=== PATIENT | female | born 1965 | race Hispanic/Latino ===

== ENCOUNTER 2018-01-28 23:02 | Emergency (ER) | payer SELFPAY ==
[2018-01-29] MEDS ORDERED: NA CHLORIDE 0.9% 1,000 ML ONE (00:02)
[2018-01-29] MEDS ORDERED: INSULIN -REGULAR HUMAN 50 UNIT/0.5 ML ML ONE ×2 (00:02→01:48)
[2018-01-29 00:05] LABS: Absolute Lymphocytes (CBC) 2.2 K/uL (0.7-4.9); Absolute Monocytes 0.4 K/uL (0.1-1.3); Absolute Neutrophil 2.5 K/uL (1.8-8.0); Basophils % 0.7 % (0-1.3); Eosinophils % 2.5 % (0-4.4); Hematocrit 40.1 % (36.0-45.0); MCH 28.8 pg (27.0-35.0); MCV 86.2 fL (80-100); MPV 8.1 fL (7.6-11.3); Monocytes % 6.7 % (3.3-12.3); RBC Red Blood Cell Count 4.65 M/uL (3.86-4.86)
[2018-01-29 00:28] LABS: ALT/SGPT 29 U/L (12-78); AST/SGOT 26 U/L (15-37); Albumin 3.1 g/dL (3.4-5.0); Alkaline Phosphatase 178 U/L (45-117); BUN Blood Urea Nitrogen 11 mg/dL (7-18); Bicarbonate 29 mmol/L (21-32); Bilirubin Direct < 0.1 mg/dL (0-0.2); Bilirubin Total 0.5 mg/dL (0.2-1.0); CKMB Creatine Kinase MB 1.8 ng/mL (0.3-3.6); Creatine Phosphokinase 117 U/L (26-192); Magnesium 1.7 mg/dL (1.8-2.4); NT PRO-BNP 141 pg/mL (<125); Protein, Total 7.2 g/dL (6.4-8.2); Sodium Level 127 mmol/L (136-145)
[2018-01-29 00:30] LABS: Glucose Level 638 mg/dL (74-106)
[2018-01-29 00:37] LABS: Protime INR 0.84
[2018-01-29] MEDS ORDERED: cloNIDine HCl 0.1 MG TAB ONE ×2 (01:47)
--- NOTE | 2018-01-29 02:12 | EDPHYS ---
Physician Documentation [facility] Name: Jailyn Terry Age: 52 yrs Sex: Female : 1965 Arrival Date: 01/28/2018 Time: 23:04 Bed 25 Private MD: ED Physician Mamadou Laboy HPI: 01/29 01:37 This 52 yrs old Female presents to ER via Ambulatory with complaints of tw4 Dizziness, Swelling of Lower Extremity. 01:37 The patient presents with dizziness. Context: last week, occurred at home. Modifying tw4 factors: The symptoms are alleviated by nothing, the symptoms are aggravated by nothing. Associated signs and symptoms: The patient has no apparent associated signs or symptoms. Severity of symptoms: At their worst the symptoms were moderate in the emergency department the symptoms are unchanged. Patient's baseline: Neuro: alert and fully oriented, Motor: no deficits, Ambulation: walks without assistance, Speech: normal. The patient has not experienced similar symptoms in the past. 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 - Social history:: Smoking status: Patient/guardian denies using tobacco. - Ebola Screening: : No symptoms or risks identified at this time. ROS: 01/29 01:37 Constitutional: Negative for fever, chills, and weight loss, Cardiovascular: Negative tw4 for chest pain, palpitations, and edema, Respiratory: Negative for shortness of breath, cough, wheezing, and pleuritic chest pain, Abdomen/GI: Negative for abdominal pain, nausea, vomiting, diarrhea, and constipation, Back: Negative for injury and pain, MS/Extremity: Negative for injury and deformity. Neuro: Positive for dizziness, Negative for altered mental status, gait disturbance, headache, hearing loss, loss of consciousness, numbness, seizure activity, speech changes, syncope, near syncope. Exam: 01:37 Constitutional: This is a well developed, well nourished patient who is awake, alert, tw4 and in no acute distress. Head/Face: Normocephalic, atraumatic. Chest/axilla: Normal chest wall appearance and motion. Nontender with no deformity. No lesions are appreciated. Cardiovascular: Regular rate and rhythm with a normal S1 and S2. No gallops, murmurs, or rubs. Normal PMI, no JVD. No pulse deficits. Respiratory: Lungs have equal breath sounds bilaterally, clear to auscultation and percussion. No rales, rhonchi or wheezes noted. No increased work of breathing, no retractions or nasal flaring. Abdomen/GI: Soft, non-tender, with normal bowel sounds. No distension or tympany. No guarding or rebound. No evidence of tenderness throughout. Back: No spinal tenderness. No costovertebral tenderness. Full range of motion. MS/ Extremity: Pulses equal, no cyanosis. Neurovascular intact. Full, normal range of motion. Neuro: Awake and alert, GCS 15, oriented to person, place, time, and situation. Cranial nerves II-XII grossly intact. Motor strength 5/5 in all extremities. Sensory grossly intact. Cerebellar exam normal. Normal gait. Vital Signs: 01/28 23:20 BP 216 / 110; Pulse 96; Resp 16 S; Temp 98.5(O); Pulse Ox 98% on R/A; Weight 81.65 kg bb (R); Height 5 ft. 5 in. (165.10 cm) (R); Pain 8/10; 23:55 BP 174 / 90; Pulse 89; Resp 17 S; Pulse Ox 98% on R/A; jd3 01/29 00:33 BP 164 / 85; Pulse 91; Resp 16 S; Pulse Ox 98% on R/A; jd3 01:31 BP 162 / 100; Pulse 93; Resp 16 S; Pulse Ox 99% on R/A; jd3 02:15 BP 135 / 78; Pulse 81; Resp 16 S; Pulse Ox 100% on R/A; jd3 01/28 23:20 Body Mass Index 29.95 (81.65 kg, 165.10 cm) bb MDM: 01/28 23:17 Patient medically screened. tw4 01/29 02:10 Differential diagnosis: generalized weakness, hypovolemia, idiopathic dizziness, tw4 near-syncope, vertigo. Data reviewed: vital signs, nurses notes. 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 Counseling: I had a detailed discussion with the patient and/or guardian regarding: the historical points, exam findings, and any diagnostic results supporting the discharge/admit diagnosis, lab results. Response to treatment: the patient's symptoms have markedly improved after treatment, and as a result, I will discharge patient. Special discussion: I discussed with the patient/guardian in detail that at this point there is no indication for admission to the hospital. It is understood, however, that if the symptoms persist or worsen the patient needs to return immediately for re-evaluation. 01/28 23:41 Order name: Basic Metabolic Panel; Complete Time: 01:01/29 01:05 Interpretation: Normal except: GLUC 638; NA 127; CL 91; GFR 76. 01/28 23:41 Order name: CBC with Diff; Complete Time: 01:01/28 23:41 Order name: Ckmb; Complete Time: 01:05 01/28 23:41 Order name: CPK; Complete Time: 01:05 01/28 23:41 Order name: LFT's; Complete Time: 01:01/29 01:05 Interpretation: Normal except: A/G 0.8; GLOB 4.1; ALB 3.1; ALK 178. 01/28 23:41 Order name: Magnesium; Complete Time: 01:05 01/29 01:32 Interpretation: MG 1.7. 01/28 23:41 Order name: NT PRO-BNP; Complete Time: 01:05 01/28 23:41 Order name: PT-INR; Complete Time: 01:05 01/28 23:41 Order name: Ptt, Activated; Complete Time: 01:05 01/28 23:41 Order name: Troponin (emerg Dept Use Only); Complete Time: 01:05 01/28 23:41 Order name: EKG; Complete Time: 23:42 01/28 23:41 Order name: Cardiac monitoring; Complete Time: 23:49 01/28 23:41 Order name: EKG - Nurse/Tech; Complete Time: 23:56 01/28 23:41 Order name: IV Saline Lock; Complete Time: 23:49 01/28 23:41 Order name: Labs collected and sent; Complete Time: 23:49 tw4 01/28 23:41 Order name: O2 Per Protocol; Complete Time: 23:49 tw4 01/28 23:41 Order name: O2 Sat Monitoring; Complete Time: 23:49 tw4 Administered Medications: 00:11 Not Given (Physician Discretion): cloNIDine 0.2 mg PO once jd3 00:12 Drug: Insulin Regular Human 10 units {Co-Signature: tl3 (Monica Maxwell RN).} Route: IVP; jd3 Site: left antecubital; 02:10 Follow up: Response: No adverse reaction jd3 00:12 Drug: NS 0.9% 1000 ml Route: IV; Rate: 1 bolus; Site: left antecubital; jd3 02:25 Follow up: Response: No adverse reaction; IV Status: Completed infusion; IV Intake: jd3 1000ml 00:12 Drug: cloNIDine 0.1 mg Route: PO; jd3 02:10 Follow up: Response: No adverse reaction jd3 01:52 Drug: cloNIDine 0.1 mg Route: PO; jd3 02:10 Follow up: Response: No adverse reaction; Blood pressure is lowered jd3 01:53 Drug: Insulin Regular Human 5 units {Co-Signature: jd3 (Robert Lauren RN).} Route: ea IVP; Site: left antecubital; 02:16 Follow up: Response: Blood sugar is lowered jd3 Point of Care Testing: Blood Glucose: 01/28 23:21 Blood Glucose: 488 mg/dL; bb 01/29 01:10 Blood Glucose: 312 mg/dL; jd3 02:15 Blood Glucose: 214 mg/dL; jd3 01:10 provider notified. jd3 Ranges: Critical Glucose Levels:Adult <50 mg/dl or >400 mg/dl <40 mg/dl or >180 mg/dl Disposition: 01/29/18 02:11 Discharged to Home. Impression: Hyperglycemia, unspecified, Hypertension secondary to other renal disorders. - Condition is Stable. - Discharge Instructions: Hypertension, Hypertension, [id number]-[id number], Blood Glucose Monitoring, Adult, Hyperglycemia, Util-cp-Spkh, Metformin and IV Contrast Studies. - Prescriptions for Lisinopril 10 mg Oral Tablet - take 1 tablet by ORAL route once daily; 20 tablet. Metformin 500 mg Oral Tablet Sustained Release 24 hr - take 1 tablet by ORAL route once daily with evening meal; 20 tablet. - Medication Reconciliation Form, Thank You Letter, Antibiotic Education, Prescription Opioid Use form. - Follow up: Private Physician; When: As needed; Reason: Recheck today's complaints, Re-evaluation by your physician. - Problem is new. - Symptoms have improved. Signatures: Dispatcher [employer] EDJimena Davenport RN RN bb Cece Roman RN RN ea Davies, Jonathon, RN RN jd3 Mamadou Laboy MD MD tw4 Monica Maxwell RN tl3 Robert Lauren RN jd3 Corrections: (The following items were deleted from the chart) 01:05 01:05 A/G 0.8; GLOB 4.1; ALB 3.1; ALK 178. tw4 tw4 02:25 02:11 01/29/2018 02:11 Discharged to Home. Impression: Hyperglycemia, unspecified; jd3 Hypertension secondary to other renal disorders. Condition is Stable. Forms are Medication Reconciliation Form, Thank You Letter, Antibiotic Education, Prescription Opioid Use. Follow up: Private Physician; When: As needed; Reason: Recheck today's complaints, Re-evaluation by your physician. Problem is new. Symptoms have improved. tw4
--- NOTE | 2018-01-29 02:12 | ER ---
Nurse's Notes [facility] Name: Jailyn Terry Age: 52 yrs Sex: Female : 1965 Arrival Date: 01/28/2018 Time: 23:04 Bed 25 Private MD: Diagnosis: Hyperglycemia, unspecified;Hypertension secondary to other renal disorders Presentation: 01/28 23:18 Presenting complaint: Patient states: she has HTN and DM but ran out of her medication bb a month ago has been having pain in her left leg for several weeks has a big lump on her left foot and has had diarrhea all day today. Denies vomiting, or fever. Transition of care: patient was not received from another setting of care. Onset of symptoms was December 2017. Risk Assessment: Do you want to hurt yourself or someone else? Patient reports no desire to harm self or others. Initial Sepsis Screen: Does the patient meet any 2 criteria? No. Patient's initial sepsis screen is negative. Does the patient have a suspected source of infection? No. Patient's initial sepsis screen is negative. Care prior to arrival: None. 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 - Social history:: Smoking status: Patient/guardian denies using tobacco. - Ebola Screening: : No symptoms or risks identified at this time. Screenin:25 Abuse screen: Denies threats or abuse. Nutritional screening: No deficits noted. jd3 Tuberculosis screening: No symptoms or risk factors identified. Fall Risk IV access (20 points). Ambulatory Aid- None/Bed Rest/Nurse Assist (0 pts). Gait- Weak (10 pts.). Mental Status- Oriented to own ability (0 pts). Total Young Fall Scale indicates Low Risk Score (25-44 pts). Fall prevention measures have been instituted. Side Rails Up X 2 Placed close to Nursing Station Frequent Obs/Assesments occuring Family Present and informed to notify staff if they need to leave bedside. Assessment: 23:30 General: Appears uncomfortable, obese, well groomed, well developed, well nourished, tl3 Behavior is calm, cooperative, appropriate for age. Pain: Complains of pain in abdomen Also complains of nausea, diarrhea. Neuro: Level of Consciousness is awake, alert, obeys commands, Oriented to person, place, time, situation, Appropriate for age. Cardiovascular: Heart tones S1 S2 present Patient's skin is warm and dry. Respiratory: Airway is patent Respiratory effort is even, unlabored, Respiratory pattern is regular, symmetrical. GI: Reports lower abdominal pain, diarrhea. : No signs and/or symptoms were reported regarding the genitourinary system. EENT: No signs and/or symptoms were reported regarding the EENT system. Derm: No signs and/or symptoms reported regarding the dermatologic system. Musculoskeletal: No signs and/or symptoms reported regarding the musculoskeletal system. 23:30 EENT: Reports blurred vision. tl3 23:30 Reassessment: has been out of diabetes and blood pressure medicine for about a month. tl3 23:44 Reassessment: Patient appears in no apparent distress at this time. No changes from jd3 previously documented assessment. Patient and/or family updated on plan of care and expected duration. Pain level reassessed. Patient is alert, oriented x 3, equal unlabored respirations, skin warm/dry/pink. 01/29 00:34 Reassessment: Patient appears in no apparent distress at this time. Patient and/or jd3 family updated on plan of care and expected duration. Pain level reassessed. Patient is alert, oriented x 3, equal unlabored respirations, skin warm/dry/pink. 01:32 Reassessment: Patient appears in no apparent distress at this time. Patient and/or jd3 family updated on plan of care and expected duration. Pain level reassessed. Patient is alert, oriented x 3, equal unlabored respirations, skin warm/dry/pink. 02:24 Reassessment: Patient appears in no apparent distress at this time. Patient and/or jd3 family updated on plan of care and expected duration. Pain level reassessed. Patient is alert, oriented x 3, equal unlabored respirations, skin warm/dry/pink. pt reported understanding of discharge instructions, even and steady gait upon discharge. Vital Signs: 01/28 23:20 BP 216 / 110; Pulse 96; Resp 16 S; Temp 98.5(O); Pulse Ox 98% on R/A; Weight 81.65 kg bb (R); Height 5 ft. 5 in. (165.10 cm) (R); Pain 8/10; 23:55 BP 174 / 90; Pulse 89; Resp 17 S; Pulse Ox 98% on R/A; jd3 01/29 00:33 BP 164 / 85; Pulse 91; Resp 16 S; Pulse Ox 98% on R/A; jd3 01:31 BP 162 / 100; Pulse 93; Resp 16 S; Pulse Ox 99% on R/A; jd3 02:15 BP 135 / 78; Pulse 81; Resp 16 S; Pulse Ox 100% on R/A; jd3 01/28 23:20 Body Mass Index 29.95 (81.65 kg, 165.10 cm) bb ED Course: 01/28 23:04 Patient arrived in ED. am2 23:17 Mamadou Laboy MD is Attending Physician. tw4 23:19 Triage completed. bb 23:20 Arm band placed on Patient placed in an exam room, on a stretcher, on pulse oximetry. bb 23:25 Patient has correct armband on for positive identification. Bed in low position. Call jd3 light in reach. Side rails up X2. Adult w/ patient. 23:26 Inserted saline lock: 22 gauge in left antecubital area, using aseptic technique. Blood jd3 collected. 23:30 Pulse ox on. NIBP on. Warm blanket given. tl3 23:30 No provider procedures requiring assistance completed. tl3 23:44 Robert Lauren, MILTON is Primary Nurse. jd3 01/29 00:30 Notified ED physician of a critical lab result(s). 638 blood glucose. no new orders at j this time. will recheck blood glucose level. 02:24 IV discontinued, intact, bleeding controlled, No redness/swelling at site. Pressure jd3 dressing applied. Administered Medications: 00:11 Not Given (Physician Discretion): cloNIDine 0.2 mg PO once jd3 00:12 Drug: Insulin Regular Human 10 units {Co-Signature: tl3 (Monica Maxwell RN).} Route: IVP; jd3 Site: left antecubital; 02:10 Follow up: Response: No adverse reaction jd3 00:12 Drug: NS 0.9% 1000 ml Route: IV; Rate: 1 bolus; Site: left antecubital; jd3 02:25 Follow up: Response: No adverse reaction; IV Status: Completed infusion; IV Intake: jd3 1000ml 00:12 Drug: cloNIDine 0.1 mg Route: PO; jd3 02:10 Follow up: Response: No adverse reaction jd3 01:52 Drug: cloNIDine 0.1 mg Route: PO; jd3 02:10 Follow up: Response: No adverse reaction; Blood pressure is lowered jd3 01:53 Drug: Insulin Regular Human 5 units {Co-Signature: jd3 (Robert Lauren RN).} Route: ea IVP; Site: left antecubital; 02:16 Follow up: Response: Blood sugar is lowered jd3 Point of Care Testing: Blood Glucose: 01/28 23:21 Blood Glucose: 488 mg/dL; bb 01/29 01:10 Blood Glucose: 312 mg/dL; jd3 02:15 Blood Glucose: 214 mg/dL; jd3 01:10 provider notified. jd3 Ranges: Intake: 02:25 IV: 1000ml; Total: 1000ml. jd3 Outcome: 02:11 Discharge ordered by . tw4 02:24 Discharged to home ambulatory, with family. jd3 02:24 Condition: stable 02:24 Discharge instructions given to patient, family, Instructed on discharge instructions, follow up and referral plans. medication usage, Demonstrated understanding of instructions, follow-up care, medications, Prescriptions given X 2. 02:25 Patient left the ED. jd3 Signatures: Jimena Jacobs RN Miriam Baker Elena RN Robert Kat ea, RN RN jd3 Wadley, Terrence, MD MD tw4 Monica Maxwell RN RN tl3 Monica Maxwell RN tl3 Robert Lauren RN jd3 Corrections: (The following items were deleted from the chart) 01/28 23:21 23:18 Acuity: JENNIFER 3 bb 23:26 23:25 Fall Risk Ambulatory Aid- None/Bed Rest/Nurse Assist (0 pts). Gait- Normal/Bed jd3 Rest/Wheelchair (0 pts) Mental Status- Oriented to own ability (0 pts). Total Young Fall Scale indicates No Risk (0-24 pts). jd3 01/29 01:10 01:03 Blood Glucose: Blood Glucose Jufvglp=540 mg/dL. jd3 jd3
[2018-01-29 02:29] VITALS: TEMP 98.5
[2018-01-29 02:34] VITALS: BP 135/78; O2SAT 100
--- NOTE | 2018-01-29 15:36 | EKG ---
Test Date: 2018-01-28 Test Time: 23:50:09 Mgmt Specialist: JENY MEASUREMENT RESULTS: Intervals: Rate: 92 IL: 106 QRSD: 80 QT: 370 QTc: 457 [place]: P: 12 IL: 106 QRS: -13 T: 93 INTERPRETIVE STATEMENTS: Sinus rhythm with short IL Minimal voltage criteria for LVH, may be normal variant Septal infarct, age undetermined Abnormal ECG Compared to ECG 07/06/2013 10:53:25 Short IL interval now present Left ventricular hypertrophy now present Myocardial infarct finding now present Sinus tachycardia no longer present Electronically Signed On 01-29-18 15:34:02 CDT by Wilmer Cordoba
== END 2018-01-29 02:25 | disposition home or self-care (01) ==
LOC: ER 23:02
DX: E11.65 Type 2 diabetes mellitus with hyperglycemia (principal); I10 Essential (primary) hypertension
CPT/HCPCS: 36415; 80048; 80076; 82550; 82553; 82962; 83735; 83880; 84484; 85025; 85610; 85730; 93005; 96361; 96374; 99284; J7030

== ENCOUNTER 2018-12-10 08:59 | Emergency (ER) | payer SELFPAY ==
--- OUTSIDE RECORDS SUMMARY | 2018-12-10 09:01 | XMS REPORT ---
:1965 Author Organization [facility] Address [address] [place] [address] Dr. Vasquez [address] [place] [id number] Care Team Providers Name Role Phone Unavailable Unavailable Unavailable Problems This patient has no known problems. Allergies, Adverse Reactions, Alerts This patient has no known allergies or adverse reactions. Medications This patient has no known medications.
--- NOTE | 2018-12-10 10:45 | ER ---
Nurse's Notes [facility] Name: Jailyn Terry Age: 53 yrs Sex: Female : 1965 Arrival Date: 12/10/2018 Time: 09:02 Bed 20 Private MD: None, None Diagnosis: Vision sensitivity deficiencies-cataracts;Type 2 diabetes mellitus Presentation: 12/10 09:13 Presenting complaint: Patient states: blurred vision to R eye that began 4-5 days ago. ss Became worse 2 days ago. Denies pain/ headache and/or dizziness. Transition of care: patient was not received from another setting of care. Onset of symptoms was December 06, 2018. Risk Assessment: Do you want to hurt yourself or someone else? Patient reports no desire to harm self or others. Initial Sepsis Screen: Does the patient meet any 2 criteria? No. Patient's initial sepsis screen is negative. Does the patient have a suspected source of infection? No. Patient's initial sepsis screen is negative. Care prior to arrival: None. 09:13 Method Of Arrival: Ambulatory ss 09:13 Acuity: JENNIFER 3 ss Triage Assessment: 09:15 General: Appears in no apparent distress. comfortable, Behavior is cooperative, bp appropriate for age, anxious. Pain: Denies pain. EENT: Reports blurred vision in right eye. Neuro: Level of Consciousness is awake, alert, obeys commands, Oriented to person, place, time, situation, Appropriate for age. Cardiovascular: No deficits noted. Respiratory: Airway is patent Respiratory effort is even, unlabored, Respiratory pattern is regular, symmetrical. GI: No signs and/or symptoms were reported involving the gastrointestinal system. : No signs and/or symptoms were reported regarding the genitourinary system. Derm: No deficits noted. Musculoskeletal: Circulation, motion, and sensation intact. Range of motion: intact in all extremities. Historical: - Allergies: 09:15 No Known Allergies; ss - Home Meds: 09:15 metformin 1,000 mg Oral tab 1 tab 2 times per day [Active]; ss - PMHx: :15 Diabetes; Hypertension; neuropathy; ss - PSHx: :15 None; ss - Immunization history:: Adult Immunizations up to date. - Social history:: Smoking status: Patient/guardian denies using tobacco. - Ebola Screening: : Patient denies exposure to infectious person Patient denies travel to an Ebola-affected area in the 21 days before illness onset. - Family history:: not pertinent. Screenin:15 Abuse screen: Denies threats or abuse. Denies injuries from another. Nutritional bp screening: No deficits noted. Tuberculosis screening: No symptoms or risk factors identified. Fall Risk None identified. Assessment: 09:15 General: SEE TRIAGE NOTE. bp 10:25 Reassessment: MD AT B/S FOR OPTHO EXAM. bp 10:40 Reassessment: PT DISCOVERED ELOPED FROM UNIT, CALLED FROM [facility] WITH NO ANSWER. bp Vital Signs: 09:15 BP 174 / 77; Pulse 93; Resp 16; Temp 97.8(TE); Pulse Ox 100% on R/A; Weight 81.65 kg; ss Height 5 ft. 0 in. (152.40 cm); Pain 0/10; 10:24 BP 166 / 83; Pulse 87; Resp 16; Pulse Ox 100% ; bp 09:15 Body Mass Index 35.15 (81.65 kg, 152.40 cm) ED Course: 09:02 Patient arrived in ED. mr 09:02 None, None is Private Physician. mr 09:12 Arik Barrett MD is Attending Physician. [facility] 09:15 Triage completed. 09:15 Arm band placed on right wrist. 09:15 Patient has correct armband on for positive identification. Bed in low position. Call bp light in reach. Side rails up X2. 09:16 Jonathan Lawson, RN is Primary Nurse. bp 10:42 No provider procedures requiring assistance completed. Patient did not have IV access bp during this emergency room visit. 10:50 Navjot Hendricks MD is Referral Physician. [facility] Administered Medications: No medications were administered Point of Care Testing: Blood Glucose: 09:09 Blood Glucose: 181 mg/dL; em1 Ranges: Outcome: 10:43 Eloped from patient exam room, after seeing physician Time discovered patient gone: November bp 2018 at 10:43 10:44 Patient left the ED. bp 10:53 Patient left the ED. Signatures: Arik Barrett MD MD cha Rivera, Edilma Bajwa, Pablo em1 Fatoumata Breen RN RN Jonathan Lawson, MILTON RN bp
--- NOTE | 2018-12-10 10:45 | EDPHYS ---
Physician Documentation [facility] Name: Jailyn Terry Age: 53 yrs Sex: Female : 1965 Arrival Date: 12/10/2018 Time: 09:02 Bed 20 Private MD: None, None ED Physician Arik Barrett HPI: 12/10 10:40 This 53 yrs old Female presents to ER via Ambulatory with complaints of savannah Blurred Vision. 10:40 The patient is experiencing blurred vision. Onset: The symptoms/episode began/occurred savannah 2 day(s) ago. Duration: the symptoms are continuous. Aggravated by nothing. Alleviated by nothing. Associated signs and symptoms: Pertinent negatives: chills, dizziness, ear ache, fever, headache. Patient wears glasses. Severity of symptoms: At their worst the symptoms were moderate in the emergency department the symptoms are unchanged. The patient has not experienced similar symptoms in the past. Historical: - Allergies: 09:15 No Known Allergies; ss - Home Meds: 09:15 metformin 1,000 mg Oral tab 1 tab 2 times per day [Active]; ss - PMHx: 09:15 Diabetes; Hypertension; neuropathy; ss - PSHx: 09:15 None; ss - Immunization history:: Adult Immunizations up to date. - Social history:: Smoking status: Patient/guardian denies using tobacco. - Ebola Screening: : Patient denies exposure to infectious person Patient denies travel to an Ebola-affected area in the 21 days before illness onset. - Family history:: not pertinent. ROS: 10:40 Constitutional: Negative for fever, chills, and weight loss, ENT: Negative for injury, savannah pain, and discharge, Neck: Negative for injury, pain, and swelling, Cardiovascular: Negative for chest pain, palpitations, and edema, Respiratory: Negative for shortness of breath, cough, wheezing, and pleuritic chest pain, Abdomen/GI: Negative for abdominal pain, nausea, vomiting, diarrhea, and constipation, Back: Negative for injury and pain, : Negative for injury, bleeding, discharge, and swelling, MS/Extremity: Negative for injury and deformity, Skin: Negative for injury, rash, and discoloration, Neuro: Negative for headache, weakness, numbness, tingling, and seizure, Psych: Negative for depression, anxiety, suicide ideation, homicidal ideation, and hallucinations, Allergy/Immunology: Negative for hives, rash, and allergies, Endocrine: Negative for neck swelling, polydipsia, polyuria, polyphagia, and marked weight changes, Hematologic/Lymphatic: Negative for swollen nodes, abnormal bleeding, and unusual bruising. 10:40 Eyes: Positive for blurry vision, of the iris of right eye. Exam: 10:40 Constitutional: This is a well developed, well nourished patient who is awake, alert, savannah and in no acute distress. Head/Face: Normocephalic, atraumatic. ENT: Nares patent. No nasal discharge, no septal abnormalities noted. Tympanic membranes are normal and external auditory canals are clear. Oropharynx with no redness, swelling, or masses, exudates, or evidence of obstruction, uvula midline. Mucous membranes moist. Neck: Trachea midline, no thyromegaly or masses palpated, and no cervical lymphadenopathy. Supple, full range of motion without nuchal rigidity, or vertebral point tenderness. No Meningismus. Chest/axilla: Normal chest wall appearance and motion. Nontender with no deformity. No lesions are appreciated. Cardiovascular: Regular rate and rhythm with a normal S1 and S2. No gallops, murmurs, or rubs. Normal PMI, no JVD. No pulse deficits. Respiratory: Lungs have equal breath sounds bilaterally, clear to auscultation and percussion. No rales, rhonchi or wheezes noted. No increased work of breathing, no retractions or nasal flaring. Abdomen/GI: Soft, non-tender, with normal bowel sounds. No distension or tympany. No guarding or rebound. No evidence of tenderness throughout. Back: No spinal tenderness. No costovertebral tenderness. Full range of motion. Skin: Warm, dry with normal turgor. Normal color with no rashes, no lesions, and no evidence of cellulitis. MS/ Extremity: Pulses equal, no cyanosis. Neurovascular intact. Full, normal range of motion. Neuro: Awake and alert, GCS 15, oriented to person, place, time, and situation. Cranial nerves II-XII grossly intact. Motor strength 5/5 in all extremities. Sensory grossly intact. Cerebellar exam normal. Normal gait. Psych: Awake, alert, with orientation to person, place and time. Behavior, mood, and affect are within normal limits. 10:40 Eyes: Periorbital structures: appear normal, no acute changes, Pupils: no acute changes, equal, round, and reactive to light and accomodation, equal, Extraocular movements: no acute changes, Conjunctiva: normal, no acute changes, Corneas: are normal, no acute changes, cataracts, Sclera: no appreciated abnormality, Anterior chamber: normal, Lids and lashes: appear normal, no acute changes. Vital Signs: 09:15 BP 174 / 77; Pulse 93; Resp 16; Temp 97.8(TE); Pulse Ox 100% on R/A; Weight 81.65 kg; ss Height 5 ft. 0 in. (152.40 cm); Pain 0/10; 10:24 BP 166 / 83; Pulse 87; Resp 16; Pulse Ox 100% ; bp 09:15 Body Mass Index 35.15 (81.65 kg, 152.40 cm) ss MDM: 09:12 Patient medically screened. [facility] 10:52 Data reviewed: vital signs, nurses notes. [facility] 12/10 09:11 Order name: Glucose, Ancillary Testing; Complete Time: 10:49 EDMS Administered Medications: No medications were administered Point of Care Testing: Blood Glucose: 09:09 Blood Glucose: 181 mg/dL; em1 Ranges: Critical Glucose Levels:Adult <50 mg/dl or >400 mg/dl <40 mg/dl or >180 mg/dl Disposition: 12/10/18 10:44 Patient left the facility after being seen by provider. Preliminary diagnosis are Vision sensitivity deficiencies - cataracts, Type 2 diabetes mellitus. - Patient left due to unknown. - Condition is Fair. - Problem is new. - Symptoms are unchanged. Signatures: Arik Barrett MD MD cha Smirch, Shelby, RN RN Jonathan Lawson, RN RN bp Corrections: (The following items were deleted from the chart) 10:52 10:44 12/10/2018 10:44 Patient left the facility after being seen by provider. Reason [facility] stated they are leaving due to unknown. bp 10:53 10:52 12/10/2018 10:44 Patient left the facility after being seen by provider. Preliminary diagnosis is Vision sensitivity deficiencies - cataracts; Type 2 diabetes mellitus. Reason stated they are leaving due to unknown. Condition is Fair. Problem is new. Symptoms are unchanged. [facility]
[2018-12-10 17:14] VITALS: TEMP 97.8; O2SAT 100
[2018-12-10 17:16] VITALS: BP 166/83
== END 2018-12-10 10:53 | disposition left against medical advice (07) ==
LOC: ER 08:59
DX: H26.9 Unspecified cataract (principal); E11.9 Type 2 diabetes mellitus without complications; I10 Essential (primary) hypertension; Z79.84 Long term (current) use of oral hypoglycemic drugs
CPT/HCPCS: 82962

== ENCOUNTER 2021-07-12 07:58 | Inpatient (IN) | payer OTHER, SELFPAY ==
--- OUTSIDE RECORDS SUMMARY | 2021-07-12 08:02 | XMS REPORT | Continuity of Care Document ---
:1965 Author Organization [facility] t Address [address] [place] [address] Care Team Providers Name Role Phone CARISA GOMEZ Primary Care Physician Unavailable CARISA GOMEZ Attending Clinician Unavailable Patricia MURAL ARTISTCarisa Puentes Attending Clinician CARISA GOMEZ Admitting Clinician Unavailable Payers Payer Name Policy Type Policy Number Effective Date Expiration Date [employer] [id number] 2021 00:00:00 Problems Condition Condition Condition Status Onset Resolution Last Treating Co mments Source Name Details Category Date Date Treatment Clinician Date Diabetic Diabetic Disease Active Unive rs retinal retinal 5-23 [place] [facility] [place] Vitreous Vitreous Disease Active Overview: Un [place] hemorrhage hemorrhage 5-20 Form[place] ity of of right of right 00:00: g of this [place] as eye eye 00 note Medical might be Branch different from the original. Added automatic ally from request for surgery [id number] Obesity Obesity Disease Active 2017-07 Univers (BMI (BMI 2-03 ity of 30-39.9) 30-39.9) 00:00: [place] 00 Medical Branch Need for Need for Disease Active Unive rs Tdap Tdap 4-28 ity of vaccinatio vaccinatio [place] 00 Medical [place] Diabetes Diabetes Disease Active Overview: Un [place] mellitus mellitus 4-28 Formattin ity of type 2, type 2, 00:00: g of this [place] uncontroll uncontroll 00 note Me dical ed, ed, might be Branch 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 different complicati complicati from the ons ons original. ICD10 Diagnosis Term Desk Reporter Utility Essential Essential Disease Active Overview: Univers hypertensi hypertensi 11-24 Formattin ity of on on 00:00: g of this 00 note Medical might be Branch different from the original. ICD10 Diagnosis Term Desk Reporter Utility Acquired Acquired Disease Active Unive rs hypothyroi hypothyroi 11-24 it y of dism dism 00:00: [place] 00 Medical Branch History of History of Disease Active U nivers tubal tubal 11-24 ity of ligation ligation 00:00: Medical Branch Morbid Morbid Disease Active Univers obesity obesity 11-24 ity of 00:00: Medical Branch Genital Genital Disease Active Univers warts warts 11-24 ity of 00:00: [place] [facility] Encounter Encounter Disease Active Overview: Univers for for 11-24 Formattin ity of routine routine 00:00: g of this [place] gynecologi gynecologi 00 note Me dical theron theron might be Branch examinatio examinatio different n n from the original. ICD10 Diagnosis Term Desk Reporter Utility Boil Boil Disease Active Univers 11-24 ity of 00:00: 00 Medical Branch Surveillan Surveillan Disease Active Overview : Univers ce of ce of 11-24 Formattin ity of previously previously 00:00: g of this [place] prescribed prescribed 00 note Me dical contracept contracept might be Branch brock method brock method different from the original. ICD10 Diagnosis Term Desk Reporter Utility Allergies, Adverse Reactions, Alerts Allergy Allergy Status Severity Reaction(s) Onset Inactive Treating Comm ents Source Name Type Date Date Clinician NO KNOWN Drug Active Univers ALLERGIE Class ity of S [place] [facility] Social History Social Habit Start Date Stop Date Quantity Comments Source Exposure to Not sure [facility] SARS-CoV-2 [place] [facility] (event) Branch Alcohol intake 2021-07-01 2021-07-01 Current drinker Unive rsity of 00:00:00 00:00:00 of alcohol [place] [facility] (finding) Branch Sex [birth year] At [birth year] Universit y of 00:00:00 00:00:00 [facility] Smoking Status Start Date Stop Date Source Never smoker [facility] Medications Ordered Filled Start Stop Current Ordering Indication Dosage Frequency Signature Comments Components Source Medication Medication Date Date Medication? Clinician (SIG) Name Name lisinopriL 2020-07 Yes [id number] 20mg Take 1 U nivers 20 mg 1-11 tablet by ity of tablet 00:00: mouth [place] 00 daily. Medical Branch metoprolol 2020-07 Yes [id number] 25mg Take 1 U nivers succinate 1-11 tablet by ity o f XL 25 mg 24 00:00: mouth [place] hr tablet 00 every Medical evening. Branch gabapentin 2020-07 Yes [id number] 300mg Take 1 Univers 300 mg 1-11 capsule by ity of capsule 00:00: mouth 3 (three) Medical times Branch daily. glipiZIDE 2020-07 Yes [id number] 10mg Take 1 Un [place] 10 mg 1-11 tablet by ity of tablet 00:00: mouth 2 (two) Medical times Branch daily before breakfast and dinner. lisinopriL 2020-07 Yes [id number] 20mg Take 1 U nivers 20 mg 1-11 tablet by ity of tablet 00:00: mouth [place] 00 daily. Medical Branch metoprolol 2020-07 Yes [id number] 25mg Take 1 U nivers succinate 1-11 tablet by ity o f XL 25 mg 24 00:00: mouth [place] hr tablet 00 every Medical evening. Branch gabapentin 2020-07 Yes [id number] 300mg Take 1 Univers 300 mg 1-11 capsule by ity of capsule 00:00: mouth 3 (three) Medical times Branch daily. glipiZIDE 2020-07 Yes [id number] 10mg Take 1 Un [place] 10 mg 1-11 tablet by ity of tablet 00:00: mouth 2 00 (two) Medical times Branch daily before breakfast and dinner. lisinopriL 2020-07 Yes [id number] 20mg Take 1 U nivers 20 mg 1-11 tablet by ity of tablet 00:00: mouth [place] 00 daily. Medical Branch metoprolol 2020-07 Yes [id number] 25mg Take 1 U nivers succinate 1-11 tablet by ity o f XL 25 mg 24 00:00: mouth [place] hr tablet 00 every Medical evening. Branch gabapentin 2020-07 Yes [id number] 300mg Take 1 Univers 300 mg 1-11 capsule by ity of capsule 00:00: mouth 3 [place] 00 (three) Medical times Branch daily. glipiZIDE 2020-07 Yes [id number] 10mg Take 1 Un [place] 10 mg 1-11 tablet by ity of tablet 00:00: mouth 2 [place] 00 (two) Medical times Branch daily before breakfast and dinner. lisinopriL 2020-07 Yes [id number] 20mg Take 1 U nivers 20 mg 1-11 tablet by ity of tablet 00:00: mouth [place] 00 daily. Medical Branch metoprolol 2020-07 Yes [id number] 25mg Take 1 U nivers succinate 1-11 tablet by ity o f XL 25 mg 24 00:00: mouth [place] hr tablet 00 every Medical evening. Branch gabapentin 2020-07 Yes [id number] 300mg Take 1 Univers 300 mg 1-11 capsule by ity of capsule 00:00: mouth 3 [place] 00 (three) Medical times Branch daily. glipiZIDE 2020-07 Yes [id number] 10mg Take 1 Un [place] 10 mg 1-11 tablet by ity of tablet 00:00: mouth 2 [place] 00 (two) Medical times Branch daily before breakfast and dinner. albuterol 2020-07 Yes [id number] 2{puff} Inhale 2 Univers 90 1-07 Puffs ity of mcg/actuati 00:00: every 4 [place] as on inhaler 00 (four) Medical hours as Branch needed for Wheezing or Shortness of Breath. methylPREDN 2020-07 Yes [id number] Take by [place] ISolone 4 1-07 mouth ity of mg tablets 00:00: [place]-INSTRU [place] 00 CTIONS. Medical follow Branch package directions benzonatate 2020-07 Yes [id number] 100mg Take 1 Univers 100 mg 1-07 capsule by ity of capsule 00:00: mouth 3 [place] 00 (three) Medical times Branch daily as needed for Cough. albuterol 2020-07 Yes [id number] 2{puff} Inhale 2 Univers 90 1-07 Puffs ity of mcg/actuati 00:00: every 4 [place] on inhaler 00 (four) Medical hours as Branch needed for Wheezing or Shortness of Breath. methylPREDN 2020-07 Yes [id number] Take by Univers ISolone 4 1-07 mouth ity of mg tablets 00:00: [place]-INSTRU [place] 00 CTIONS. Medical follow Branch package directions benzonatate 2020-07 Yes [id number] 100mg Take 1 Univers 100 mg 1-07 capsule by ity of capsule 00:00: mouth 3 [place] 00 (three) Medical times Branch daily as needed for Cough. albuterol 2020-07 Yes [id number] 2{puff} Inhale 2 Univers 90 1-07 Puffs ity of mcg/actuati 00:00: every 4 [place] on inhaler 00 (four) Medical hours as Branch needed for Wheezing or Shortness of Breath. methylPREDN 2020-07 Yes [id number] Take by Univers ISolone 4 1-07 mouth ity of mg tablets 00:00: [place]-INSTRU [place] 00 CTIONS. Medical follow Branch package directions benzonatate 2020-07 Yes [id number] 100mg Take 1 Univers 100 mg 1-07 capsule by ity of capsule 00:00: mouth 3 00 (three) Medical times Branch daily as needed for Cough. albuterol 2020-07 Yes [id number] 2{puff} Inhale 2 Univers 90 1-07 Puffs ity of mcg/actuati 00:00: every 4 [place] on inhaler 00 (four) Medical hours as Branch needed for Wheezing or Shortness of Breath. methylPREDN 2020-07 Yes [id number] Take by Univers ISolone 4 1-07 mouth ity of mg tablets 00:00: SEE-INSTRU [place] 00 CTIONS. Medical follow Branch package directions benzonatate 2020-07 Yes [id number] 100mg Take 1 Univers 100 mg 1-07 capsule by ity of capsule 00:00: mouth 3 [place] 00 (three) Medical times Branch daily as needed for Cough. doxycycline 2020-07- Yes [id number] 100mg Take 1 Univers hyclate 100 1-07 11-18 capsule by i ty of mg capsule 00:00: 05:59 mouth 2 [place] 00 :00 (two) Medical times Branch daily for 10 days. doxycycline 2020-07- Yes [id number] 100mg Take 1 Univers hyclate 100 1-07 11-18 capsule by i ty of mg capsule 00:00: 05:59 mouth 2 [place] 00 :00 (two) Medical times Branch daily for 10 days. lisinopril 2020- No [id number] 20mg Take 1 Univers 20 mg 5-23 11-11 tablet by ity of tablet 00:00: 00:00 mouth [place] 00 :00 daily. Medical Branch metoprolol 2020- No [id number] 25mg Take 1 Univers succinate 5-23 11-11 tablet by ity of XL 25 mg 24 00:00: 00:[place] hr tablet 00 :00 every Medical evening. Branch lisinopril 2020- No [id number] 20mg Take 1 Univers 20 mg 5-23 11-11 tablet by ity of tablet 00:00: 00:00 mouth [place] 00 :00 daily. Medical Branch metoprolol 2020- No [id number] 25mg Take 1 Univers succinate 5-23 11-11 tablet by ity of XL 25 mg 24 00:00: 00:[place] hr tablet 00 :00 every Medical evening. Branch prednisoLON Yes [id number] 1[drp] Place 1 Univers E acetate 1 5-21 9103 Drop in ity o f % 00:00: right eye [place] ophthalmic 00 4 (four) Medic al suspension times Branch drops daily. tobramycin Yes [id number] 1[drp] Place 1 Univers 0.3 % 5-21 9103 Drop in ity of ophthalmic 00:00: right eye [place] drops 00 4 (four) Medical times Branch daily. prednisoLON Yes [id number] 1[drp] Place 1 Univers E acetate 1 5-21 9103 Drop in ity o f % 00:00: right eye [place] ophthalmic 00 4 (four) Medic al suspension times Branch drops daily. tobramycin Yes [id number] 1[drp] Place 1 Univers 0.3 % 5-21 9103 Drop in ity of ophthalmic 00:00: right eye [place] drops 00 4 (four) Medical times Branch daily. prednisoLON Yes [id number] 1[drp] Place 1 Univers E acetate 1 5-21 9103 Drop in ity o f % 00:00: right eye [place] ophthalmic 00 4 (four) Medic al suspension times Branch drops daily. tobramycin Yes [id number] 1[drp] Place 1 Univers 0.3 % 5-21 9103 Drop in ity of ophthalmic 00:00: right eye [place] drops 00 4 (four) Medical times Branch daily. prednisoLON 2018- Yes [id number] 1[drp] Place 1 Univers E acetate 1 5-21 9103 Drop in ity o f % 00:00: right eye [place] ophthalmic 00 4 (four) Medic al suspension times Branch drops daily. tobramycin Yes [id number] 1[drp] Place 1 Univers 0.3 % 5-21 9103 Drop in ity of ophthalmic 00:00: right eye [place] drops 00 4 (four) Medical times Branch daily. gabapentin 2020- No [id number] 300mg Take 1 Univers 300 mg 12-05 capsule by ity of capsule 00:00: 00:00 mouth 3 [place] 00 :00 (three) Medical times Branch daily. gabapentin 2020- No [id number] 300mg Take 1 Univers 300 mg 12-05 capsule by ity of capsule 00:00: 00:00 mouth 3 [place] 00 :00 (three) Medical times Branch daily. GLIPIZIDE Yes [id number] TAKE 1 U nivers 10 mg 4-18 TABLET BY ity of tablet 00:00: MOUTH [place] 00 TWICE Medical DAILY Branch BEFORE BREAKFAST AND DINNER GLIPIZIDE Yes [id number] TAKE 1 U nivers 10 mg 4-18 TABLET BY ity of tablet 00:00: MOUTH [place] 00 TWICE Medical DAILY Branch BEFORE BREAKFAST AND DINNER GLIPIZIDE Yes [id number] TAKE 1 U nivers 10 mg 4-18 TABLET BY ity of tablet 00:00: MOUTH [place] 00 TWICE Medical DAILY Branch BEFORE BREAKFAST AND DINNER GLIPIZIDE Yes [id number] TAKE 1 U nivers 10 mg 4-18 TABLET BY ity of tablet 00:00: MOUTH [place] 00 TWICE Medical DAILY Branch BEFORE BREAKFAST AND DINNER glipiZIDE 2020- No [id number] 10mg Take 1 Univers 10 mg 10-07 tablet by ity of tablet 00:00: 00:00 mouth 2 [place] 00 :00 (two) Medical times Branch daily before breakfast and dinner. glipiZIDE 2020- No [id number] 10mg Take 1 Univers 10 mg 3-11 11-11 tablet by ity of tablet 00:00: 00:00 mouth 2 [place] 00 :00 (two) Medical times Branch daily before breakfast and dinner. aspirin 81 2018 Yes 81mg Take 1 Unive rs mg chewable 8-30 tablet by ity of tablet 00:00: mouth [place] 00 daily. Medical Branch aspirin 81 Yes 81mg Take 1 Unive rs mg chewable 8-30 tablet by ity of tablet 00:00: mouth [place] 00 daily. Medical Branch aspirin 81 [id number] Yes 81mg Take 1 Unive rs mg chewable 8-30 tablet by ity of tablet 00:00: mouth [place] 00 daily. Medical Branch aspirin 81 2018 Yes 81mg Take 1 Unive rs mg chewable 8-30 tablet by ity of tablet 00:00: mouth [place] 00 daily. Medical Branch acetaminoph Yes 2{tbl} Take 2 Un [place] en-codeine 3-07 Tabs by ity of (TYLENOL 00:00: mouth [place] #3) 300-30 00 every 6 Medica l mg tablet (six) Branch hours as needed for Pain (scale 4-6). acetaminoph Yes 2{tbl} Take 2 Un [place] en-codeine 3-07 Tabs by ity of (TYLENOL 00:00: mouth [place] #3) 300-30 00 every 6 Medica l mg tablet (six) Branch hours as needed for Pain (scale 4-6). acetaminoph Yes 2{tbl} Take 2 Un [place] en-codeine 3-07 Tabs by ity of (TYLENOL 00:00: mouth [place] #3) 300-30 00 every 6 Medica l mg tablet (six) Branch hours as needed for Pain (scale 4-6). acetaminoph Yes 2{tbl} Take 2 [place] en-codeine 3-07 Tabs by ity of (TYLENOL 00:00: mouth [place] #3) 300-30 00 every 6 Medica l mg tablet (six) Branch hours as needed for Pain (scale 4-6). Immunizations Ordered Filled Immunization Date Status Comments [facility] e Immunization Name Name Influenza High Dose 2021-05-04 Completed Unive rsity of 00:00:00 [facility] DTAP 2021-05-04 Completed University of 00:00:00 [facility] Influenza High Dose 2021-05-04 Completed Unive rsity of 00:00:00 [facility] DTAP 2021-05-04 Completed University of 00:00:00 [facility] Influenza High Dose 2021-05-04 Completed Unive rsity of 00:00:00 [facility] DTAP 2021-05-04 Completed University of 00:00:00 [facility] Influenza High Dose 2021-05-04 Completed Unive rsity of 00:00:00 [facility] DTAP 2021-05-04 Completed University of 00:00:00 [facility] SARS-COV-2 COVID-19 2021-04-28 Completed Unive rsity of PFIZER VACCINE 00:00:00 [facility] SARS-COV-2 COVID-19 2021-04-28 Completed Unive rsity of PFIZER VACCINE 00:00:00 [facility] SARS-COV-2 COVID-19 2021-04-28 Completed Unive rsity of PFIZER VACCINE 00:00:00 [facility] SARS-COV-2 COVID-19 2021-04-28 Completed Unive rsity of PFIZER VACCINE 00:00:00 [facility] SARS-COV-2 COVID-19 2021-04-07 Completed Unive rsity of PFIZER VACCINE 00:00:00 [facility] SARS-COV-2 COVID-19 2021-04-07 Completed Unive rsity of PFIZER VACCINE 00:00:00 [facility] SARS-COV-2 COVID-19 2021-04-07 Completed Unive rsity of PFIZER VACCINE 00:00:00 [facility] SARS-COV-2 COVID-19 2021-04-07 Completed Unive rsity of PFIZER VACCINE 00:00:00 [facility] Vital Signs Vital Name Observation Time Observation Value Comments Source BMI 2021-06-09 16:51:00 34.04 [facility]/m2 [facility] Oxygen saturation in 2021-06-09 16:51:00 97 /min University Arterial blood by [facility] Pulse oximetry Branch Systolic blood 2021-06-09 16:51:00 108 mm[Hg] Univer sity of pressure [facility] Diastolic blood 2021-06-09 16:51:00 83 mm[Hg] Unive rsity of pressure [facility] Heart rate 2021-06-09 16:51:00 88 /min [facility] Body temperature 2021-06-09 16:51:00 37 [place] [facility] Respiratory rate 2021-06-09 16:51:00 20 /[facility] height 2021-06-09 16:51:00 152.4 cm [facility] Body weight 2021-06-09 16:51:00 79.062 kg [facility] Procedures Procedure Date / Time Performing Clinician Source Performed BI SCREENING 2021-07-01 15:02:00 Carisa Gomez [place] TOMOSYNTHESIS [facility] NOTICE OF PRIVACY 2021-07-01 14:37:14 Doctor Unassigned, No [facility] PRACTICES Name [facility] CONSENT/REFUSAL FOR 2021-07-01 14:36:59 Doctor Unassigned, No [facility] DIAGNOSIS AND TREATMENT [facility] ASSIGNMENT OF BENEFITS 2021-07-01 14:36:43 Doctor Unassigned, No [facility] Encounters Start End Encounter Admission Attending Care Care Encounter Source Date/Time Date/Time Type Type Clinicians Facility Department ID 2021-07-14 2021-07-14 Outpatient Edgar GOMEZ [facility] [id number] Univers 11:00:00 11:00:00 CARISA [id number] andres [facility] 2021-07-01 2021-07-01 Outpatient Edgar GOMEZ [facility] [id number] Univers 08:39:06 23:59:00 CARISA campos [facility] 2021-07-01 2021-07-01 [facility] [id number] Univers 08:39:06 23:59:00 Encounter Carisa GALEAS [id number] andres [facility] [id number] [facility] [id number] [place] [address] Branch 2021-06-15 2021-06-15 Telephone Patricia [facility] [id number] Univers 00:00:00 00:00:00 [employer] [id number] it y of [facility] [id number] [place] as JOSEPH?BLEA [id number] [address] OFFICE [facility] 2021-06-09 2021-06-09 [facility] [id number] Univers 11:00:00 11:41:41 CARISA campos [facility] 2021-06-09 2021-06-[address] [facility] [id number] Univers 10:37:35 11:41:41 Visit [employer] [id number] it y of [facility] [id number] [place] JOSEPH?BLEA [id number] [address] OFFICE [facility] Results This patient has no known results.
[2021-07-12 09:00] LABS: Basophils % 1.2 % (0-1.3); Hematocrit 35.9 % (36.0-45.0); Lymphocytes % 30.2 % (15.3-44.8); MPV 7.3 fL (7.6-11.3); RBC Red Blood Cell Count 4.36 M/uL (3.86-4.86)
[2021-07-12 09:30] LABS: Bilirubin Direct 0.1 mg/dL (0-0.2); Bilirubin Total 0.6 mg/dL (0.2-1.0); Potassium 3.3 mmol/L (3.5-5.1); Protein, Total 6.7 g/dL (6.4-8.2)
[2021-07-12 09:32] LABS: Troponin (Emerg Dept Use Only) 1.48 ng/mL (0.0-0.045)
[2021-07-12] MEDS ORDERED: ASPIRIN 81 MG CHEWABLE TABLET ONE (09:37)
[2021-07-12] MEDS ORDERED: INSULIN -REGULAR HUMAN 50 UNIT/0.5 ML ML ONE (09:38)
[2021-07-12] MEDS ORDERED: ONDANSETRON 4 MG/2 ML VIAL ONE (09:57)
[2021-07-12] MEDS ORDERED: MORPHINE 4 MG/ML SYR ONE (09:57)
--- NOTE | 2021-07-12 10:05 | RAD REPORT ---
EXAM DESCRIPTION: CT - Chest For Pe Angio - 07/12/2021 9:47 am CLINICAL HISTORY: CHEST PAIN COMPARISON: Chest Single View dated 07/12/2021 TECHNIQUE: Dynamically enhanced 3 mm thick images of the chest were obtained during administration o f approximately 150mL Isovue 370 IV contrast. Coronal and oblique MIP reconstruction images were gene rated and reviewed. Exam utilizes a protocol to evaluate the pulmonary arterial tree. All CT scans are performed using dose optimization technique as appropriate and may include automated exposure control or mA/KV adjustment according to patient size. FINDINGS: No pulmonary emboli are identified. The aorta as imaged shows no acute or suspicious finding. Heart size is prominent. No pericardial thi ckening or effusion. No peripheral mass consolidation. No COVID-19 sections finding seen. Interstitial pattern is prominen t and could reflect a mild interstitial edema or infiltrate. Trace pleural effusion in each posterior gutter. No pneumothorax or pleural based mass. Small mediastinal and hilar lymph nodes are present most likely reactive. Suspicious or bulky lymphad enopathy is not seen. No chest wall masses or abnormal axillary lymphadenopathy. IMPRESSION: No pulmonary emboli identified. Interstitial pattern is prominent with prominent heart size. Small probably reactive mediastinal and hilar lymph nodes are present.Viral infiltrate is certainly possible. A mild failure or volume overlo ad should also be considered.
[2021-07-12] MEDS ORDERED: METOPROLOL TAR 50 MG TAB ONE (10:18)
--- NOTE | 2021-07-12 10:20 | RAD REPORT ---
EXAM DESCRIPTION: RAD - Chest Single View - 07/12/2021 9:56 am CLINICAL HISTORY: CHEST PAIN COMPARISON: June 2013 TECHNIQUE: AP portable chest image was obtained 07/12/2021 9:56 am . FINDINGS: No focal mass or consolidation. Diffusely prominent interstitial pattern is seen with cent ral vasculature within normal range. Heart size is upper normal to slightly increased over comparison . A mild failure or volume overload would be a consideration. Viral infiltrate is also possible. No measurable pleural effusion and no pneumothorax. No acute bony abnormality seen. No acute aortic findings suspected. IMPRESSION: Prominent heart, vasculature and lung markings suspicious for mild failure or volume ove rload. Viral infiltrate is possible as well.
--- NOTE | 2021-07-12 10:54 | ER ---
Nurse's Notes [facility] Name: Jailyn Teryr Age: 56 yrs Sex: Female : 1965 Arrival Date: 07/12/2021 Time: 07:59 Bed 8 Private MD: Diagnosis: Chest pain, unspecified;Essential (primary) hypertension-Malignant Hypertension Presentation: 07/12 08:01 Chief complaint: Patient states: sharp chest pain started two days ago. hx of htn and jh6 dm. pt reports pain worse with deep breath. no cough or congestion. Coronavirus screen: Vaccine status: Patient reports receiving the 2nd dose of the covid vaccine. Client denies travel out of the [place] in the last 14 days. Ebola Screen: No symptoms or risks identified at this time. Initial Sepsis Screen: Does the patient meet any 2 criteria? No. Patient's initial sepsis screen is negative. Does the patient have a suspected source of infection? No. Patient's initial sepsis screen is negative. Risk Assessment: Do you want to hurt yourself or someone else? Patient reports no desire to harm self or others. Onset of symptoms was July 10, 2021. 08:01 Method Of Arrival: Ambulatory [facility] 08:01 Acuity: JENNIFER 2 [facility] Triage Assessment: 08:07 General: Appears in no apparent distress. Behavior is calm, cooperative. [facility] Cardiovascular: Reports chest pain, fatigue, lightheadedness, shortness of breath. 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 - Social history:: Patient/guardian denies using alcohol, Smoking status: Patient denies any tobacco usage or history of. - Family history:: not pertinent. - Hospitalizations: : No recent hospitalization is reported. Screenin:51 Abuse screen: Denies threats or abuse. Nutritional screening: No deficits noted. ll3 Tuberculosis screening: No symptoms or risk factors identified. 08:51 Fall Risk Mental Status- Oriented to own ability (0 pts). Total Young Fall Scale ll3 indicates. Fall Risk IV access (20 points). Total Young Fall Scale indicates No Risk (0-24 pts). Assessment: 08:51 General: Appears in no apparent distress. uncomfortable, Behavior is calm, cooperative. ll3 Pain: Complains of pain in anterior aspect of right upper chest Pain radiates to Right side, back Pain currently is 9 out of 10 on a pain scale. Quality of pain is described as heavy, pressure, Pain began 2-3 days ago. Is continuous, Aggravated by increased activity. Neuro: Level of Consciousness is awake, alert, obeys commands, Oriented to person, place, time, situation, Speech is normal, Facial symmetry appears normal, Reports dizziness, headache. Cardiovascular: Heart tones S1 S2 present Patient's skin is warm and dry. Chest pain is described as Pain is 9 out of 10 on a pain scale. is located in right anterior chest wall radiates to right back began 2 days ago. Respiratory: Airway is patent Respiratory effort is even, unlabored, Respiratory pattern is regular, symmetrical, Breath sounds are clear bilaterally. Parent/caregiver reports the patient having shortness of breath on exertion. Derm: Skin is pink, warm \T\ dry. 10:08 Reassessment: Patient appears in no apparent distress at this time. Patient and/or ll3 family updated on plan of care and expected duration. Pain level reassessed. Patient is alert, oriented x 3, equal unlabored respirations, skin warm/dry/pink. c/o pain, admistered 4 mg of morphine. 11:30 Reassessment: Patient appears in no apparent distress at this time. Patient and/or ll3 family updated on plan of care and expected duration. Pain level reassessed. Patient is alert, oriented x 3, equal unlabored respirations, skin warm/dry/pink. 12:30 Reassessment: Patient appears in no apparent distress at this time. Patient and/or ll3 family updated on plan of care and expected duration. Pain level reassessed. Patient is alert, oriented x 3, equal unlabored respirations, skin warm/dry/pink. 13:43 Reassessment: Patient appears in no apparent distress at this time. Patient and/or ll3 family updated on plan of care and expected duration. Pain level reassessed. Patient is alert, oriented x 3, equal unlabored respirations, skin warm/dry/pink. Vital Signs: 08:01 BP 199 / 99; Pulse 87; Resp 17; Temp 97.7(O); Pulse Ox 100% ; Weight 81.65 kg; Height 5 6 ft. 0 in. (152.40 cm); Pain 9/10; 08:59 BP 173 / 90; Pulse 82; Resp 22; Pulse Ox 100% on R/A; ll3 10:16 BP 224 / 112; Pulse 102; Resp 19; Pulse Ox 100% ; jl7 11:15 BP 164 / 96; Pulse 73; Resp 18; Pulse Ox 100% on R/A; ll3 12:30 BP 135 / 82; Pulse 65; Resp 15; Pulse Ox 95% on R/A; ll3 13:28 BP 113 / 76; Pulse 64; Resp 14; Pulse Ox 98% on R/A; ll3 08:01 Body Mass Index 35.15 (81.65 kg, 152.40 cm) [facility] ED Course: 07:59 Patient arrived in ED. ds1 08:06 Triage completed. 6 08:07 Abdi Guerra MD is Attending Physician. rn 08:07 Arm band placed on left wrist. 6 08:17 EKG done, by ED staff, reviewed by Abdi Guerra MD. jh6 08:42 Patient has correct armband on for positive identification. Placed in gown. Bed in low mh5 position. Call light in reach. Side rails up X 1. Warm blanket given. case monitor on. Pulse ox on. NIBP on. 08:51 Bright Dillon, MILTON is Primary Nurse. 3 08:51 Initial lab(s) drawn, by ED staff, sent to lab. Inserted saline lock: 20 gauge in right ll3 antecubital area, using aseptic technique. Blood collected. Patient maintains SpO2 saturation greater than 95% on room air. 09:47 CT Chest For PE Angio In Process Unspecified. EDMS 09:56 XRAY Chest (1 view) In Process Unspecified. EDMS 10:23 COVID swab sent to lab. ll3 10:51 Forrest Valdes is Hospitalizing Provider. rn 14:26 No provider procedures requiring assistance completed. Patient admitted, IV remains in ll3 place. No redness/swelling at site. Administered Medications: 09:42 Drug: Insulin Regular Human 10 units {Co-Signature: iw (Aminah Simon RN).} Route: ll3 Sub-Q; Site: abdomen; 10:07 Follow up: Response: No adverse reaction ll3 13:46 Follow up: Response: No adverse reaction; Marked relief of symptoms ll3 09:44 Drug: Aspirin Chewable Tablet 324 mg Route: PO; ll3 10:07 Follow up: Response: No adverse reaction ll3 10:00 Drug: Zofran (Ondansetron) 4 mg Route: IVP; Site: right antecubital; ll3 10:30 Follow up: Response: No adverse reaction ll3 10:05 Drug: morphine 4 mg Route: IVP; Site: right antecubital; ll3 10:30 Follow up: Response: No adverse reaction ll3 10:20 Drug: Metoprolol TARTRATE 50 mg Route: PO; ll3 11:00 Follow up: Response: No adverse reaction ll3 11:06 Drug: Nitro-Bid (nitroglycerin) Ointment 2 % 1 inches Route: Transdermal; Site: jl7 anterior chest wall; 13:44 Follow up: Response: No adverse reaction; Marked relief of symptoms ll3 Outcome: 10:53 Decision to Hospitalize by Provider. rn 14:27 Admitted to Med/surg accompanied by tech, via wheelchair, room 217, Report called to owen Mora RN 14:27 Condition: stable 14:27 Discharge instructions given to patient, Instructed on discharge instructions, follow up and referral plans. the need for admit, Demonstrated understanding of instructions, follow-up care. 14:28 Patient left the ED. 3 Signatures: Dispatcher [facility] Theresa Starks ds1 Abdi Guerra MD MD rn Martinez, Maria 5 Flori Reich RN RN jl7 Bright Dillon RN RN rui3 Josie Barfield RN RN 6 Aminah verdugo Corrections: (The following items were deleted from the chart) 08:07 08:06 PMHx: Diabetes; [place] [id number] 08:07 08:06 PMHx: Hypertension; [place] [id number] 08:07 08:06 PMHx: neuropathy; [place] [id number] 08:56 08:51 Fall Risk IV access (20 points). ll3 ll3
--- NOTE | 2021-07-12 10:54 | EDPHYS ---
Physician Documentation [facility] Name: Jailyn Terry Age: 56 yrs Sex: Female : 1965 Arrival Date: 07/12/2021 Time: 07:59 Bed 8 Private MD: ED Physician Abdi Guerra HPI: 07/12 08:21 This 56 yrs old Female presents to ER via Ambulatory with complaints of Chest rn Pain. 08:21 The patient or guardian reports chest pain that is located primarily in the substernal rn area, anterior chest wall. Onset: 2 day(s) ago. The pain radiates to the right arm. Associated signs and symptoms: Pertinent negatives: abdominal pain, cough, diaphoresis, lightheadedness, palpitations, shortness of breath, syncope, vomiting. The chest pain is described as sharp. Duration: The patient or guardian reports multiple episodes, that are intermittent. Modifying factors: The symptoms are alleviated by nothing. the symptoms are aggravated by deep breath. Modifying factors: the symptoms are aggravated by palpation of area. Severity of pain: At its worst the pain was moderate in the emergency department the pain has improved. The patient has experienced a previous episode. The patient has not recently seen a physician. Patient reports 2 days of intermittent chest pain, substernal and anterior, radiates to right arm, not associated with fever/chills/cough. Denies trauma. Denies abdominal pain. Denies nausea or vomiting. Has had this once before and went away on its own.. 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 - Social history:: Patient/guardian denies using alcohol, Smoking status: Patient denies any tobacco usage or history of. - Family history:: not pertinent. - Hospitalizations: : No recent hospitalization is reported. ROS: 08:21 Constitutional: Negative for fever, chills, and weight loss, Eyes: Negative for injury, rn pain, redness, and discharge, Neck: Negative for injury, pain, and swelling, Cardiovascular: Negative for palpitations, and edema, Respiratory: Negative for shortness of breath, cough, wheezing, and pleuritic chest pain, Abdomen/GI: Negative for abdominal pain, nausea, vomiting, diarrhea, and constipation, Back: Negative for injury and pain, MS/Extremity: Negative for injury and deformity, Skin: Negative for injury, rash, and discoloration, Neuro: Negative for headache, weakness, numbness, tingling, and seizure. Exam: 08:19 ECG was reviewed by the Attending Physician. rn 08:21 Constitutional: This is a well developed, well nourished patient who is awake, alert, rn and in no acute distress. Head/Face: Normocephalic, atraumatic. Eyes: Periorbital areas with no swelling, redness, or edema. Cardiovascular: Regular rate and rhythm. No pulse deficits. Respiratory: No increased work of breathing, no retractions or nasal flaring. Abdomen/GI: Soft, non-tender Skin: Warm, dry MS/ Extremity: Pulses equal, no cyanosis. Neuro: Awake and alert, GCS 15 Vital Signs: 08:01 BP 199 / 99; Pulse 87; Resp 17; Temp 97.7(O); Pulse Ox 100% ; Weight 81.65 kg; Height 5 jh6 ft. 0 in. (152.40 cm); Pain 9/10; 08:59 BP 173 / 90; Pulse 82; Resp 22; Pulse Ox 100% on R/A; ll3 10:16 BP 224 / 112; Pulse 102; Resp 19; Pulse Ox 100% ; jl7 11:15 BP 164 / 96; Pulse 73; Resp 18; Pulse Ox 100% on R/A; ll3 12:30 BP 135 / 82; Pulse 65; Resp 15; Pulse Ox 95% on R/A; ll3 13:28 BP 113 / 76; Pulse 64; Resp 14; Pulse Ox 98% on R/A; ll3 08:01 Body Mass Index 35.15 (81.65 kg, 152.40 cm) [facility] MDM: 08:07 Patient medically screened. rn 10:50 Differential diagnosis: acute myocardial infarction, acute pericarditis, anxiety, rn coronary artery disease chest wall pain, congestive heart failure pleurisy, pneumothorax, pulmonary embolus. The patient was given aspirin in the Emergency Department. Data reviewed: vital signs, nurses notes, lab test result(s), EKG, radiologic studies, CT scan, plain films, and as a result, I will admit patient. Counseling: I had a detailed discussion with the patient and/or guardian regarding: the historical points, exam findings, and any diagnostic results supporting the discharge/admit diagnosis, lab results, radiology results, the need for further work-up and treatment in the hospital. Response to treatment: the patient's symptoms have mildly improved after treatment, and as a result, I will admit patient. Admission orders: after a detailed discussion of the patient's condition and case, the admit orders are written by me. 07/12 08:18 Order name: Basic Metabolic Panel; Complete Time: 09:47 rn 07/12 08:18 Order name: CBC with Diff; Complete Time: 09:32 rn 14 08:18 Order name: LFT's; Complete Time: 09:47 rn 07/12 08:18 Order name: NT PRO-BNP; Complete Time: 09:47 rn 07/12 08:18 Order name: Troponin (emerg Dept Use Only); Complete Time: 09:47 rn 14 10:18 Order name: SARS-COV-2 RT PCR (Document "Date of Onset" if Symptomatic); Complete Time: rn 13:52 07/12 08:18 Order name: XRAY Chest (1 view); Complete Time: 10:26 rn 14 08:18 Order name: CT Chest For PE Angio; Complete Time: 10:17 rn 14 13:33 Order name: Glucose, Ancillary Testing; Complete Time: 13:52 EDMS 07/12 08:18 Order name: EKG; Complete Time: 08:19 rn 14 08:18 Order name: Cardiac monitoring; Complete Time: 08:41 rn 14 08:18 Order name: EKG - Nurse/Tech; Complete Time: 08:41 rn 14 08:18 Order name: IV Saline Lock; Complete Time: 08:47 rn 14 08:18 Order name: Labs collected and sent; Complete Time: 08:47 rn 14 08:18 Order name: O2 Per Protocol; Complete Time: 08:42 rn 07/12 08:18 Order name: O2 Sat Monitoring; Complete Time: 08:42 rn EC:19 Rate is 87 beats/min. Rhythm is regular. Left axis deviation noted. QRS is positive in rn lead I and negative in lead aVF. WI interval is normal. QRS interval is normal. QT interval is prolonged at 502 msec. No Q waves. T waves are Normal. No ST changes noted. Clinical impression: NSR w/ Non-specific ST/T Changes. Interpreted by me. Reviewed by me. Administered Medications: 09:42 Drug: Insulin Regular Human 10 units {Co-Signature: iw (Aminah Simon RN).} Route: ll3 Sub-Q; Site: abdomen; 10:07 Follow up: Response: No adverse reaction ll3 13:46 Follow up: Response: No adverse reaction; Marked relief of symptoms ll3 09:44 Drug: Aspirin Chewable Tablet 324 mg Route: PO; ll3 10:07 Follow up: Response: No adverse reaction ll3 10:00 Drug: Zofran (Ondansetron) 4 mg Route: IVP; Site: right antecubital; ll3 10:30 Follow up: Response: No adverse reaction ll3 10:05 Drug: morphine 4 mg Route: IVP; Site: right antecubital; ll3 10:30 Follow up: Response: No adverse reaction ll3 10:20 Drug: Metoprolol TARTRATE 50 mg Route: PO; ll3 11:00 Follow up: Response: No adverse reaction ll3 11:06 Drug: Nitro-Bid (nitroglycerin) Ointment 2 % 1 inches Route: Transdermal; Site: jl7 anterior chest wall; 13:44 Follow up: Response: No adverse reaction; Marked relief of symptoms ll3 Disposition Summary: 07/12/21 10:53 Hospitalization Ordered Hospitalization Status: Observation rn Provider: Forrest Valdes rn Location: Telemetry/MedSurg (observation) rn Condition: Stable rn Problem: new rn Symptoms: have improved rn Bed/Room Type: Standard rn Room Assignment: 217(07/12/21 13:18) bd Diagnosis - Chest pain, unspecified rn - Essential (primary) hypertension - Malignant Hypertension rn Forms: - Medication Reconciliation Form rn - SBAR form rn Signatures: Dispatcher [employer] EDMercedez Black Roman, MD MD rn Leal, Jahala, RN RN jl7 Bright Dillon, RN RN ll3 Josie Barfield RN RN 6 Aminah Simon RN iw Corrections: (The following items were deleted from the chart) 08:07 08:06 PMHx: Diabetes; [place] [id number] 08:07 08:06 PMHx: Hypertension; [place] [id number] 08:07 08:06 PMHx: neuropathy; [place] [id number] 10:26 08:21 Constitutional: Negative for fever, chills, and weight loss, Eyes: Negative for rn injury, pain, redness, and discharge, Neck: Negative for injury, pain, and swelling, Cardiovascular: Negative for palpitations, and edema, Respiratory: Negative for shortness of breath, cough, wheezing, and pleuritic chest pain, Abdomen/GI: Negative for abdominal pain, nausea, vomiting, diarrhea, and constipation, Back: Negative for injury and pain, MS/Extremity: Negative for injury and deformity, Skin: Negative for injury, rash, and discoloration, Neuro: Negative for headache, weakness, numbness, tingling, and seizure, rn 13:18 10:53 rn bd
[2021-07-12] MEDS ORDERED: NITROGLYCERIN 1 GM PKT TD ONE (11:02)
--- NOTE | 2021-07-12 12:24 | P.HP ---
Certification for Inpatient Patient admitted to: Inpatient With expected LOS: >2 Midnights Practitioner: I am a practitioner with admitting privileges, knowledge of patient current condition, hospital course, and medical plan of care. Services: Services provided to patient in accordance with Admission requirements found in Title 42 Section 412.3 of the Code of Federal Regulations Patient History Date of Service: 07/12/21 Reason for admission: Chest pain History of Present Illness: 56-year-old woman with a past medical history of hypertension, hyperlipidemia, hypothyroidism, DM type JM-rbd-pzemyik-dependent, presented to the emergency department with a complaint of chest pain of onset 2 days ago. Chest pain radiated to involve the left arm. Symptoms also associated with palpitation. She described the chest pain is intermittent, no known aggravating factors, partially relieved by blood pressure control with metoprolol and morphine given in the ED. Her initial troponin elevated to 1.5. EKG demonstrates sinus rhythm with nonspecific T wave change, and voltage criteria LVH. Checks x-ray unremarkable. Patient systolic blood pressure on presentation was 220, now in the 160s after oral metoprolol. Patient is admitted for further management of NSTEMI. Allergies No Known Drug Allergies Allergy (Unverified 07/08/14 20:48) Unknown No Known Allergies Allergy (Uncoded 01/29/18 02:29) Unknown - Past Medical/Surgical History -: Hypertension -: Hyperlipidemia -: DM type II -: Thyroid disorder - Family History Mother -: Diabetes - Social History Smoking Status: Never smoker Alcohol use: Yes Place of Residence: Home Review of Systems Other: Patient denied any fever, she denied any cough, she denied any abdominal pain, she denied any nausea vomiting or diarrhea. Except as documented, all other systems reviewed and negative. Physical Examination - Physical Exam General: Alert, In no apparent distress, Oriented x3 HEENT: Normocephalic, Mucous membr. moist/pink, EOMI Neck: JVD not distended Respiratory: Clear to auscultation bilaterally, Normal air movement Cardiovascular: Regular rate/rhythm, Normal S1 S2, No murmurs Capillary refill: <2 Seconds Gastrointestinal: Normal bowel sounds, Soft and benign, Non-distended, No tenderness Musculoskeletal: No swelling, No tenderness Integumentary: No rashes, No erythema, No cyanosis Neurological: Normal speech, Normal strength at 5/5 x4 extr, Cranial nerves 3-12 intact Lymphatics: No axilla or inguinal lymphadenopathy - Studies Laboratory Data (last 24 hrs) 07/12/21 08:48: WBC 9.90, Hgb 12.1, Hct 35.9 L, Plt Count 524 H 07/12/21 08:48: Sodium 132 L, Potassium 3.3 L, BUN 10, Creatinine 1.04, Glucose 416 H*, Total Bilirubin 0.6, AST 24, ALT 16, Alkaline Phosphatase 158 H Assessment and Plan - Problems (Diagnosis) (1) NSTEMI (non-ST elevated myocardial infarction) Current Visit: Yes Status: Acute (2) Malignant hypertension Current Visit: Yes Status: Acute (3) Thyroid disorder Current Visit: Yes Status: Acute (4) Diabetes mellitus type 2 in obese Current Visit: Yes Status: Acute - Plan Admit patient to the medical floor. Continue to trend troponin. Start full dose Lovenox, metoprolol, aspirin and Plavix. Consult to cardiology Obtain echocardiogram Aggressive blood pressure control with metoprolol 50 mg twice daily. Also added low-dose amlodipine for target systolic blood pressure of less than 140. Insulin sliding scale for glucose management Hold Metformin Check hemoglobin A1c Check TSH. - Advance Directives Does patient have a Living Will: No Does patient have a Durable POA for Healthcare: No
[2021-07-12] MEDS ORDERED: D50W 25 GM/50 ML SYRINGE IV PRN (14:37)
[2021-07-12] MEDS ORDERED: GLUCAGON 1 MG/VIAL IM PRN (14:37)
[2021-07-12] MEDS ORDERED: ACETAMINOPHEN 500 MG TAB PO PRN (14:37)
[2021-07-12] MEDS ORDERED: NITROGLYCERIN 0.4 MG/TAB SL PRN (14:37)
[2021-07-12 15:42] VITALS: BMI 35.2
[2021-07-12] MEDS: AMLODIPINE 5 MG TAB PO SCH (15:44)
[2021-07-12 15:58] LABS: Troponin I 3.57 ng/mL (0.0-0.045)
[2021-07-12] MEDS: INSULIN -REGULAR HUMAN 50 UNIT/0.5 ML ML SQ SCH ×2 (16:30→20:22)
[2021-07-12 18:13] LABS: Urine Appearance CLEAR (Clear); Urine Bilirubin NEGATIVE (Negative); Urine Blood NEGATIVE (Negative); Urine Color YELLOW (Yellow); Urine Glucose 3+ (Negative); Urine Protein 3+ (Negative); Urine Specific Gravity >=1.030 (1.005-1.030); Urine Urobilinogen 0.2 mg/dL (0.2-1.0); Urine pH 6.5 (5.0-7.0)
[2021-07-12] MEDS: ENOXAPARIN 80 MG/0.8 ML SQ SCH (19:12)
[2021-07-12] MEDS: METOPROLOL TAR 50 MG TAB PO SCH (19:39)
[2021-07-12 21:03] LABS: Urine Microscopic Reflex ORDER UMIC
[2021-07-12 21:12] LABS: Urine Coarse Granular Casts 0-5 /LPF (NONE SEEN)
[2021-07-12 21:13] LABS: Urine Bacteria <20 /HPF (<20); Urine RBC <5 /HPF (NONE SEEN); Urine Yeast FEW (NONE SEEN)
[2021-07-13] MEDS: ONDANSETRON 4 MG/2 ML VIAL IV PRN ×3 (00:50→16:47)
[2021-07-13] MEDS: MORPHINE 2 MG/ML SYR IV PRN ×4 (01:09→16:47)
[2021-07-13 05:42] LABS: Absolute Lymphocytes (CBC) 2.7 K/uL (0.7-4.9); Basophils % 0.9 % (0-1.3); Hematocrit 35.5 % (36.0-45.0); Lymphocytes % 18.7 % (15.3-44.8); MPV 7.7 fL (7.6-11.3); RBC Red Blood Cell Count 4.33 M/uL (3.86-4.86)
[2021-07-13 06:07] LABS: Potassium 3.2 mmol/L (3.5-5.1)
[2021-07-13 06:29] LABS: Thyroid Stimulating Hormone 6.44 uIU/mL (0.360-3.740)
[2021-07-13] MEDS: INSULIN -REGULAR HUMAN 50 UNIT/0.5 ML ML SQ SCH ×4 (07:30→20:47)
--- NOTE | 2021-07-13 07:52 | EKG ---
Test Date: 2021-07-12 Test Time: 08:10:25 Polygraph Technician: FIDELIA MEASUREMENT RESULTS: Intervals: Rate: 87 NM: 130 QRSD: 86 QT: 418 QTc: 502 [place]: P: 35 NM: 130 QRS: -26 T: 113 INTERPRETIVE STATEMENTS: Normal sinus rhythm Moderate voltage criteria for LVH, may be normal variant T wave abnormality, consider lateral ischemia Prolonged QT Abnormal ECG Compared to ECG 01/28/2018 23:50:09 T-wave abnormality now present Possible ischemia now present Prolonged QT interval now present Short NM interval no longer present Myocardial infarct finding no longer present Electronically Signed On 07-13-21 07:48:18 YARN MAN by Wilmer Cordoba
[2021-07-13] MEDS: ENOXAPARIN 80 MG/0.8 ML SQ SCH (09:00)
[2021-07-13] MEDS: AMLODIPINE 5 MG TAB PO SCH (09:37)
[2021-07-13] MEDS: METOPROLOL TAR 50 MG TAB PO SCH ×2 (09:37→20:31)
[2021-07-13] MEDS: ASPIRIN EC 81 MG TAB PO SCH (09:37)
[2021-07-13 11:00] LABS: Protime INR 0.89
[2021-07-13] MEDS ORDERED: ENOXAPARIN 80 MG/0.8 ML SQ SCH (12:15)
[2021-07-13] MEDS ORDERED: PROMETHAZINE INJ 25 MG/ML AMP IV PRN (12:57)
--- NOTE | 2021-07-13 13:10 | P.PN ---
Subjective Date of Service: 07/13/21 Chief Complaint: Chest pain Patient complaining of nausea. Her troponin peaked at 3.5 and now trending down. She denies any chest pain. Physical Examination - Vital Signs Temperature: 97.4 F Blood Pressure: 166/79 Pulse: 73 Respirations: 16 Pulse Ox (%): 98 Assessment And Plan - Current Problems (Diagnosis) (1) NSTEMI (non-ST elevated myocardial infarction) Current Visit: Yes Status: Acute (2) Malignant hypertension Current Visit: Yes Status: Acute (3) Thyroid disorder Current Visit: Yes Status: Acute (4) Diabetes mellitus type 2 in obese Current Visit: Yes Status: Acute - Plan Physical examination General: Alert, In no apparent distress, Oriented x3 HEENT: EOMI Neck: JVD not distended Respiratory: Clear to auscultation bilaterally, Normal air movement Cardiovascular: Regular rate/rhythm, Normal S1 S2, No murmurs Gastrointestinal: Normal bowel sounds, Soft and benign, Non-distended, No tenderness Musculoskeletal: No swelling, No tenderness Integumentary: No rashes, No erythema, No cyanosis Neurological: Normal speech, Normal strength at 5/5 x4 extr, Cranial nerves 3-12 intact Plan: Start full dose Lovenox, metoprolol, aspirin and Plavix. Consulted cardiology Echocardiogram is pending. Continue metoprolol 50 mg twice daily. Increase amlodipine for target systolic blood pressure of less than 140. Insulin sliding scale for glucose management Holding Metformin. Hemoglobin A1c is 14. Patient will need insulin therapy as an outpatient for the next few months. Lipid profile elevated. Start Lipitor. Cardiology is planning cardiac catheterization tomorrow. I am told it could not be done today because of Cardiac staff suites shortage.
--- NOTE | 2021-07-13 13:33 | ECHO ---
HEIGHT: 5 ft 0 in WEIGHT: 180 lb 0 oz DATE OF STUDY: 07/13/[address]: aure mejia 2-DIMENSIONAL: YES M.MODE: YES DOPPLER: YES COLOR FLOW: YES TDS: NO PORTABLE: NO DEFINITY: NO BUBBLE STUDY: NO DIAGNOSIS: NSTEMI CARDIAC HISTORY: CATHERIZATION: NO SURGERY: NO PROSTHETIC VALVE: NO PACEMAKER: NO MEASUREMENTS (cm) DIASTOLIC (NORMALS) SYSTOLIC (NORMALS) IVSd 1.0 (0.6-1.2) LA Diam 2.9 (1.9-4.0) LVEF 61% LVIDd 3.4 (3.5-5.7) LVIDs 2.3 (2.0-3.5) %FS 32% LVPWd 1.1 (0.6-1.2) Ao Diam 2.3 (2.0-3.7) 2 DIMENSIONAL ASSESSMENT: RIGHT ATRIUM: NORMAL LEFT ATRIUM: NORMAL RIGHT VENTRICLE: NORMAL LEFT VENTRICLE: NORMAL TRICUSPID VALVE: NORMAL MITRAL VALVE: NORMAL PULMONIC VALVE: NORMAL AORTIC VALVE: NORMAL PERICARDIAL EFFUSION: NONE AORTIC ROOT: NORMAL LEFT VENTRICULAR WALL MOTION: NORMAL DOPPLER/COLOR FLOW: NORMAL COMMENTS: NORMAL 2D ECHOCARDIOGRAM WITH DOPPLER. NO WALL MOTION ABNORMALITY. NO EFFUSION. TECHNOLOGIST: Marley LONDON
[2021-07-13] MEDS ORDERED: MAGNES/ALUMIN/SIMET 30ML UCUP PO PRN (17:59)
[2021-07-13] MEDS ORDERED: SODIUM CHLORIDE 0.9% 10ML INJ IV PRN (17:59)
[2021-07-13] MEDS ORDERED: HEPARIN/D5W 25,000 UNIT/500 ML BAG IV PRN (18:00)
[2021-07-13] MEDS ORDERED: NA CHLORIDE 0.9% 1,000 ML IV SCH (18:00)
[2021-07-13] MEDS ORDERED: HYDRALAZINE HCL 20 MG/ML VIAL IV PRN (18:14)
[2021-07-13] MEDS: NS KCL 20MEQ 20 MEQ/1,000 ML BAG IV SCH (18:43)
[2021-07-13] MEDS ORDERED: FENTANYL CITR 100 MCG/2 ML IV PRN (18:44)
[2021-07-13] MEDS: METOCLOPRAMIDE 10 MG/2mL INJ IV PRN (19:18)
[2021-07-13] MEDS: ATORVASTATIN 40 MG TAB PO SCH (20:30)
[2021-07-13] MEDS: PANTOPRAZOLE 40 MG INJ IVP SCH (20:31)
[2021-07-14 02:26] LABS: Absolute Lymphocytes (CBC) 2.3 K/uL (0.7-4.9); Basophils % 0.9 % (0-1.3); Hematocrit 34.6 % (36.0-45.0); Lymphocytes % 16.6 % (15.3-44.8); MPV 8.1 fL (7.6-11.3); RBC Red Blood Cell Count 4.17 M/uL (3.86-4.86)
[2021-07-14 02:33] LABS: Potassium 3.4 mmol/L (3.5-5.1)
[2021-07-14] MEDS ORDERED: NA CHLORIDE 0.9% 100 ML ONE (07:53)
[2021-07-14] MEDS ORDERED: CEFTRIAXONE 1000 MG/VIAL ONE (07:53)
[2021-07-14] MEDS: NS KCL 20MEQ 20 MEQ/1,000 ML BAG IV SCH ×2 (08:20→19:48)
--- NOTE | 2021-07-14 09:45 | P.PN ---
Subjective Date of Service: 07/14/21 Chief Complaint: Chest pain Patient reports feeling much better today. Patient experienced nausea and vomiting yesterday, troponin trended up to 18. Serial EKG did not show any ischemic changes. Case discussed with cardiology- Dr. Cordoba who recommended cardiac catheterization today. She was started on treatment for GERD and Reglan for gastroparesis. She states she feels much better today. No nausea or vomiting since last night. Physical Examination - Vital Signs Temperature: 97.1 F Blood Pressure: 139/72 Pulse: 89 Respirations: 19 Pulse Ox (%): 98 Assessment And Plan - Current Problems (Diagnosis) (1) NSTEMI (non-ST elevated myocardial infarction) Current Visit: Yes Status: Acute (2) Malignant hypertension Current Visit: Yes Status: Acute (3) Thyroid disorder Current Visit: Yes Status: Acute (4) Diabetes mellitus type 2 in obese Current Visit: Yes Status: Acute (5) UTI (urinary tract infection) Current Visit: Yes Status: Acute (6) Nausea and vomiting Current Visit: Yes Status: Acute - Plan Physical examination General: Alert, In no apparent distress, Oriented x3 HEENT: EOMI Neck: JVD not distended Respiratory: Clear to auscultation bilaterally, Normal air movement Cardiovascular: Regular rate/rhythm, Normal S1 S2, No murmurs Gastrointestinal: Normal bowel sounds, Soft and benign, Non-distended, No tenderness Musculoskeletal: No swelling, No tenderness Integumentary: No rashes, No erythema, No cyanosis Neurological: Normal speech, Normal strength at 5/5 x4 extr, Cranial nerves 3-12 intact Plan: Stop heparin drip for cardiac catheterization this afternoon. Continue metoprolol, aspirin and Plavix. Cardiology input appreciated. Echocardiogram is unremarkable. Metoprolol and amlodipine for blood pressure control. Insulin sliding scale for glucose management. Start Lantus insulin after cardiac catheterization. Holding Metformin. Hemoglobin A1c is 14. Patient will need insulin therapy as an outpatient for the next few months. Lipid profile elevated. Continue Lipitor Continue Protonix for GERD, Reglan for possible gastroparesis. Continue antibiotics-Rocephin and Diflucan for UTI.
[2021-07-14] MEDS: INSULIN -REGULAR HUMAN 50 UNIT/0.5 ML ML SQ SCH ×4 (09:48→19:56)
[2021-07-14] MEDS: CEFTRIAXONE 1,000 MG in NA CHLORIDE 0.9% 50 ML IVPB SCH (09:50)
[2021-07-14] MEDS: PANTOPRAZOLE 40 MG INJ IVP SCH ×2 (09:51→19:48)
[2021-07-14] MEDS: METOPROLOL TAR 50 MG TAB PO SCH ×2 (09:52→18:12)
[2021-07-14] MEDS: ASPIRIN EC 81 MG TAB PO SCH (09:52)
[2021-07-14] MEDS: AMLODIPINE 10 MG TAB PO SCH (09:52)
[2021-07-14] MEDS ORDERED: VERAPAMIL HCL 10 MG/4 ML VIAL IV ONE (09:56)
[2021-07-14] MEDS ORDERED: HEPA 1000U/500MLS 2,000 UNIT/1,000 ML BAG IV ONE (09:56)
[2021-07-14] MEDS ORDERED: LIDOCAINE 1% 20 ML MDV ONE (09:56)
[2021-07-14] MEDS ORDERED: ATROPINE SULF 1 MG/10 ML SYR IV ONE (09:57)
[2021-07-14] MEDS ORDERED: HEPARIN 5000 UNIT/ML 1 ML VIAL ONE (09:57)
[2021-07-14] MEDS ORDERED: NITROGLYCERIN 100 MCG/ML SYR (for cath lab use only) IV ONE (09:57)
[2021-07-14] MEDS ORDERED: NITROGLYCERIN/D5W 25 MG/250 ML BTL IV ONE (09:57)
[2021-07-14] MEDS ORDERED: NA CHLORIDE 0.9% 500 ML ONE (11:46)
[2021-07-14] MEDS ORDERED: MIDAZOLAM HCL 2 MG/2 ML INJ ONE (12:02)
[2021-07-14] MEDS ORDERED: FENTANYL CITR 100 MCG/2 ML ONE (12:02)
[2021-07-14] MEDS ORDERED: CLOPIDOGREL 75 MG TABLET ONE (12:40)
[2021-07-14] MEDS ORDERED: ADENOSINE 6 MG/ 2ML VIAL IV ONE (13:09)
[2021-07-14] MEDS ORDERED: NITROGLYCERIN 0.4 MG/TAB SL ONE (13:27)
--- NOTE | 2021-07-14 14:21 | OP ---
Date of Procedure: 07/14/2021 Surgeon: ARLETTE WESTFALL Procedures Performed: 1.Selective coronary angiogram. 2.Left heart catheterization. 3.Percutaneous coronary intervention of severe mid to left circumflex stenosis versus culprit for th e myocardial infarction used 2.75 x 24 mm Synergy drug-eluting stent. Indication: [id number] myocardial infarction. Access: Right radial artery 6-Brazilian closed with TR band. Anesthesia: Total sedation time was 65 minutes. Description Of Procedure: After risks, benefits, and alternatives were explained, the patient agreed to procedure and signed informed consent. The patient was brought into the cardiac catheterization laboratory, prepped and draped in usual sterile fashion. Then, I accessed right radial artery using pediatric micropuncture kit and placed 6-Brazilian Slender sheath. Then, took a 5-Brazilian Hitchcock 4.0 cath eter into the aortic root, engaged the left main and right coronary artery, took standard views and t he catheter was advanced over the wire to the LV. Took LVEDP and pullback did not record any gradien t. Subsequently we gave the patient systemic heparin and 600 mg of Plavix and we took a 6-Brazilian EBU 3 to the aortic root, engaged the left main, took short Runthrough wire into the left main than left circumflex passing the area of stenosis and then the lesion was prepped and then placed a 2.75 x 24 mm Synergy drug-eluting stent. Initially, there was no reflow after adenosine and nitroglycerin esta blished to the distal flow with a VIOLA-3 pattern. I then removed the wire and the sheath and the sheryl de and placed TR band with good hemostasis. Findings: 1.Left main is normal. 2.LAD mid 50% and diagonal 1 branch at the bifurcating area has 50% stenosis, VIOLA-3 flow. 3.Left circumflex mid 99% stenosis, which is a culprit for the MA, status post successful PCI as abo ve. 4.RCA has a mid 50% stenosis of a very large dominant vessel. Conclusions: 1.Severe mid left circumflex stenosis, status post successful PCI as above and this is the culprit f or the MA. 2.Moderate coronary artery disease elsewhere. Plan: 1.Continue aspirin, Plavix, and high-dose statin. 2.Staged FFR of LAD, diagonal, and RCA in 4 to 6 weeks. SR/MODL Voice ID: [id number] Report ID: [id number]
[2021-07-14] MEDS: FLUCONAZOLE 100 MG TAB PO SCH (17:42)
[2021-07-14] MEDS: ONDANSETRON 4 MG/2 ML VIAL IV PRN (18:12)
[2021-07-14] MEDS: ATORVASTATIN 40 MG TAB PO SCH (19:48)
[2021-07-14] MEDS: METOCLOPRAMIDE 10 MG/2mL INJ IV PRN (19:48)
[2021-07-15 05:54] LABS: Absolute Lymphocytes (CBC) 2.3 K/uL (0.7-4.9); Basophils % 0.6 % (0-1.3); Hematocrit 31.8 % (36.0-45.0); MPV 7.5 fL (7.6-11.3); RBC Red Blood Cell Count 3.82 M/uL (3.86-4.86)
[2021-07-15 06:11] LABS: Potassium 3.2 mmol/L (3.5-5.1)
[2021-07-15] MEDS: FLUCONAZOLE 100 MG TAB PO SCH (09:05)
[2021-07-15] MEDS: ASPIRIN EC 81 MG TAB PO SCH (09:05)
[2021-07-15] MEDS: PANTOPRAZOLE 40 MG INJ IVP SCH (09:06)
[2021-07-15] MEDS: AMLODIPINE 10 MG TAB PO SCH (09:06)
[2021-07-15] MEDS: CEFTRIAXONE 1,000 MG in NA CHLORIDE 0.9% 50 ML IVPB SCH (09:07)
[2021-07-15] MEDS: INSULIN -REGULAR HUMAN 50 UNIT/0.5 ML ML SQ SCH ×2 (09:07→12:30)
[2021-07-15] MEDS: METOPROLOL TAR 50 MG TAB PO SCH (09:08)
[2021-07-15 09:33] VITALS: O2SAT 96
[2021-07-15] MEDS ORDERED: GLUCAGON 1 MG/VIAL IM PRN (10:15)
[2021-07-15] MEDS ORDERED: INSULIN 70/30 100 UNITS/ML SQ SCH (10:15)
[2021-07-15] MEDS ORDERED: D50W 25 GM/50 ML SYRINGE IV PRN (10:15)
--- NOTE | 2021-07-15 10:33 | P.DS ---
Admission Date: 07/12/21 Discharge Date: 07/15/21 Disposition: ROUTINE DISCHARGE Discharge Condition: FAIR Reason for Admission: Chest pain Consultations: Cardiology - Problems (1) NSTEMI (non-ST elevated myocardial infarction) Current Visit: Yes Status: Acute (2) Malignant hypertension Current Visit: Yes Status: Acute (3) Thyroid disorder Current Visit: Yes Status: Acute (4) Diabetes mellitus type 2 in obese Current Visit: Yes Status: Acute (5) UTI (urinary tract infection) Current Visit: Yes Status: Acute (6) Nausea and vomiting Current Visit: Yes Status: Acute Brief History of Present Illness: 56-year-old woman with a past medical history of hypertension, hyperlipidemia, hypothyroidism, DM type QP-rbs-qnvozth-dependent, presented to the emergency department with a complaint of chest pain of onset 2 days ago. Chest pain radiated to involve the left arm. Symptoms also associated with palpitation. She described the chest pain is intermittent, no known aggravating factors, partially relieved by blood pressure control with metoprolol and morphine given in the ED. Her initial troponin elevated to 1.5. EKG demonstrates sinus rhythm with nonspecific T wave change, and voltage criteria LVH. Checks x-ray unremarkable. Patient systolic blood pressure on presentation was 220, now in the 160s after oral metoprolol. Patient is admitted for further management of N STEMI. Hospital Course: Patient admitted to the medical floor and treated for NSTEMI with full dose Lovenox, aspirin, beta-ileana NTG and statin. Her troponin trended up to 18. Cardiology was consulted and cardiac catheterization performed. Patient noted to have RCA occlusion which was stented. She developed nausea and vomiting along with a chest pain. There was concern for gastritis and gastroparesis. Patient was treated with IV Reglan for gastroparesis and Protonix for gastritis. Her symptoms improved with treatment. Her hemoglobin A1c is 14 denoting uncontrolled diabetes. Patient had been on glipizide. At this point patient is informed her glucose needs to be managed with subcutaneous insulin until her hemoglobin A1c improve. Patient prescribed Novolin 70/[address] Cha-cardiology planning a staged Cardiac cath and will follow the patient in the office for arrangements for another cardiac cath in 6 weeks. Her blood pressure was severely elevated on presentation. Patient had been on metoprolol. Dose of metoprolol increased from 25 mg twice daily to 50 mg twice daily. Added amlodipine during the hospital stay. Lisinopril is resumed on discharge Patient is currently asymptomatic, Vital Signs/Physical Exam: Temp Pulse Resp BP Pulse Ox 98.2 F 96 H 16 156/73 H 100 07/15/21 07:00 07/15/21 09:08 07/15/21 07:00 07/15/21 09:08 07/15/21 07:00 General: Alert, In no apparent distress, Oriented x3 HEENT: Normocephalic, Mucous membr. moist/pink Neck: Supple, JVD not distended Respiratory: Clear to auscultation bilaterally, Normal air movement Cardiovascular: No edema, Regular rate/rhythm, Normal S1 S2, No murmurs Capillary refill: <2 Seconds Gastrointestinal: Normal bowel sounds, Soft and benign, Non-distended, No tenderness Musculoskeletal: No swelling, No tenderness Integumentary: No rashes, No erythema Neurological: Normal speech, Normal strength at 5/5 x4 extr Laboratory Data at Discharge: WBC 13.50 K/uL (4.3-10.9) H 07/15/21 05:25 Hgb 10.6 g/dL (12.0-15.0) L 07/15/21 05:25 Hct 31.8 % (36.0-45.0) L 07/15/21 05:25 Plt Count 484 K/uL (152-406) H 07/15/21 05:25 PT 10.2 SECONDS (9.5-12.5) 07/13/21 10:35 INR 0.89 07/13/21 10:35 APTT 56.9 SECONDS (24.3-36.9) H 07/14/21 06:52 Sodium 134 mmol/L (136-145) L 07/15/21 05:25 Potassium 3.2 mmol/L (3.5-5.1) L 07/15/21 05:25 BUN 21 mg/dL (7-18) H 07/15/21 05:25 Creatinine 1.32 mg/dL (0.55-1.3) H 07/15/21 05:25 Glucose 243 mg/dL (74-106) H 07/15/21 05:25 Total Bilirubin 0.6 mg/dL (0.2-1.0) 07/12/21 08:48 AST 24 U/L (15-37) 07/12/21 08:48 ALT 16 U/L (12-78) 07/12/21 08:48 Alkaline Phosphatase 158 U/L (45-117) H 07/12/21 08:48 Troponin I 18.20 ng/mL (0.0-0.045) H* 07/13/21 17:43 Triglycerides 237 mg/dL (<150) H 07/12/21 15:04 Cholesterol 330 mg/dL (<200) H 07/12/21 15:04 HDL Cholesterol 63 mg/dL (40-60) H 07/12/21 15:04 Cholesterol/HDL Ratio 5.24 07/12/21 15:04 Home Medications: Benzonatate 1 tab PO DAILY 07/12/21 lisinopriL [Lisinopril] 1 tab PO DAILY 07/12/21 Amlodipine [Norvasc*] 10 mg PO DAILY #30 tab 07/15/21 Aspirin [Aspirin EC] 81 mg PO DAILY #30 tablet. 07/15/21 Atorvastatin Calcium [Lipitor] 80 mg PO BEDTIME #30 tab 07/15/21 Blood Sugar Diagnostic [Glucose Test Strip] 1 each MC TID #90 strip 07/15/21 Blood-Glucose Meter [Contour] 1 each MC TID #1 kit 07/15/21 Clopidogrel Bisulfate [Plavix] 75 mg PO DAILY #30 tablet 07/15/21 Fluconazole 200 mg PO DAILY #5 tablet 07/15/21 Gabapentin 1 tab PO TID #90 07/15/21 Insulin 70/30 NPH/Reg Human [Novolin 70/30*] 20 unit SQ BIDAC #10 ml 07/15/21 Metoprolol Tartrate [Lopressor*] 50 mg PO BID #60 tab 07/15/21 Pantoprazole Sodium [Protonix] 40 mg PO DAILY #30 tablet. 07/15/21 Syringe,Needle,Insuln,Sf,0.3ML [Safetyglide Insulin Syringe] 1 each MC TID #100 disp.syrin 07/15/21 New Medications: Aspirin [Aspirin EC] 81 mg PO DAILY #30 tablet. Blood-Glucose Meter [Contour] 1 each MC TID #1 kit Fluconazole 200 mg PO DAILY #5 tablet Gabapentin 1 tab PO TID #90 Blood Sugar Diagnostic [Glucose Test Strip] 1 each MC TID #90 strip Atorvastatin Calcium [Lipitor] 80 mg PO BEDTIME #30 tab Metoprolol Tartrate [Lopressor*] 50 mg PO BID #60 tab Amlodipine [Norvasc*] 10 mg PO DAILY #30 tab Insulin 70/30 NPH/Reg Human [Novolin 70/30*] 20 unit SQ BIDAC #10 ml Clopidogrel Bisulfate [Plavix] 75 mg PO DAILY #30 tablet Pantoprazole Sodium [Protonix] 40 mg PO DAILY #30 tablet.dr Syringe,Needle,Insuln,Sf,0.3ML [Safetyglide Insulin Syringe] 1 each TID #100 disp.syrin Diet: ADA Activity: Ad marley Followup: NONE,NONE [Primary Care Provider] - Evan Cha MD [ACTIVE - CAN ADMIT] - 1-2 Weeks
[2021-07-15] MEDS: NS KCL 20MEQ 20 MEQ/1,000 ML BAG IV SCH (11:00)
[2021-07-15 12:15] VITALS: BP 139/75; TEMP 97.9
[2021-07-15] MEDS ORDERED: PANTOPRAZOLE 40MG TABLET PO SCH (21:00)
--- NOTE | 2021-07-16 17:04 | EKG ---
Test Date: 2021-07-13 Test Time: 19:24:48 Lumber Stacker: KARLOS MEASUREMENT RESULTS: Intervals: Rate: 95 SC: 140 QRSD: 86 QT: 386 QTc: 485 Bowler: P: 35 SC: 140 QRS: -12 T: 187 INTERPRETIVE STATEMENTS: Poor data quality, interpretation may be adversely affected Sinus rhythm with occasional premature ventricular complexes and fusion complexes Left ventricular hypertrophy with repolarization abnormality Prolonged QT Abnormal ECG Compared to ECG 07/12/2021 16:42:05 Fusion complex(es) now present Ventricular premature complex(es) now present Electronically Signed On 07-16-21 17:00:23 SENIOR FUNCTIONAL ANALYST by Wilmer Cordoba
--- NOTE | 2021-07-16 17:04 | EKG ---
Test Date: 2021-07-13 Test Time: 19:25:39 Bilingual Receptionist: KARLOS MEASUREMENT RESULTS: Intervals: Rate: 97 [place]: 138 QRSD: 88 QT: 390 QTc: 495 [place]ston: P: 32 [place]: 138 QRS: -12 T: 164 INTERPRETIVE STATEMENTS: Normal sinus rhythm Left ventricular hypertrophy with repolarization abnormality Prolonged QT Abnormal ECG Compared to ECG 07/13/2021 19:24:48 Fusion complex(es) no longer present Ventricular premature complex(es) no longer present Electronically Signed On 07-16-21 17:00:22 PLANT PRODUCTION MANAGER by Wilmer Cordoba
--- NOTE | 2021-07-17 14:05 | CON ---
Date of Consultation: 07/13/[address] Valdes on 07/12/2021 for chest pain. Reason For Consultation: Non-STEMI. History Of Present Illness: Ms. Terry is 56. No previous cardiac history. She does have a history of hypertension, neuropathy, and diabetes. She takes lisinopril, gabapentin, metoprolol, glipizide, came in with substernal chest pressure, bilateral exertional nausea. No diaphoresis. No vomiting. No shortness of breath. Denied PND, orthopnea, pedal edema, palpitation, or syncope. Her troponin w as 3.57. Her hemoglobin A1c was 14. Triglycerides and cholesterol were elevated. Her glucose level was 416. Her initial pressure was 220 systolic, is 143 now. She is pain-free now. She is on aspir in, Lovenox, and appropriate therapy. Past Medical History: As stated above. Allergies: NONE. Review of Systems: Negative. Social History: Negative. Family History: Negative. Medications: Stated earlier. Physical Examination: Vital Signs: Initial pressure was 220 systolic, now is 143/67. HEENT: Negative. Neck: Supple. No bruit. Chest: Clear. Cardiac: Revealed a regular rhythm and rate. No murmurs, gallops, or rubs. Abdomen: Benign. Extremities: Revealed no clubbing, cyanosis, or edema. Diagnostic Data: Listed earlier. EKG showed nonspecific changes. Impression And Plan: 1.Ueu-PJ-wsnscgu elevation myocardial infarction. 2.Blood pressure, poorly controlled. 3.Diabetes, poorly controlled. 4.Dyslipidemia, poorly controlled. 5.Hypokalemia. 6.Renal insufficiency. The patient needs her blood pressure is better controlled. She does have diabetes and dyslipidemia t reated with statin. She needs to be hydrated gently, correct her potassium. We need to do a heart c atheterization on her either today or tomorrow depending on the staff availability. Echocardiogram i s pending. We will hold Lovenox prior to the cath. NB/MODL Voice ID: [id number] Report ID: [id number]
== END 2021-07-15 14:00 | disposition home or self-care (01) | DRG 247 ==
LOC: ER 07:58 → ERHOLD 12:10 → 2ND 14:05
PROVIDERS: ADMIT Internal Medicine; ATTEND Internal Medicine
PROC: 4A023N7 Measurement of Cardiac Sampling and Pressure, Left Heart, Percutaneous Approach (ICD-10-PCS; principal; 2021-07-14)
PROC: 027034Z Dilation of Coronary Artery, One Artery with Drug-eluting Intraluminal Device, Percutaneous Approach (ICD-10-PCS; 2021-07-14)
PROC: B2111ZZ Fluoroscopy of Multiple Coronary Arteries using Low Osmolar Contrast (ICD-10-PCS; 2021-07-14)
DX: I21.4 Non-ST elevation (NSTEMI) myocardial infarction (principal); N39.0 Urinary tract infection, site not specified; I10 Essential (primary) hypertension; E78.5 Hyperlipidemia, unspecified; E07.9 Disorder of thyroid, unspecified; E66.9 Obesity, unspecified; K21.9 Gastro-esophageal reflux disease without esophagitis; E11.43 Type 2 diabetes mellitus with diabetic autonomic (poly)neuropathy; E87.6 Hypokalemia; N28.9 Disorder of kidney and ureter, unspecified; E11.40 Type 2 diabetes mellitus with diabetic neuropathy, unspecified; K31.84 Gastroparesis; K29.70 Gastritis, unspecified, without bleeding; Z68.35 Body mass index [BMI] 35.0-35.9, adult; Z79.82 Long term (current) use of aspirin; Z79.4 Long term (current) use of insulin; Z90.49 Acquired absence of other specified parts of digestive tract; Z79.899 Other long term (current) drug therapy; Z79.02 Long term (current) use of antithrombotics/antiplatelets; Z20.822 Contact with and (suspected) exposure to COVID-19
CPT/HCPCS: 36415; 71045; 71275; 80048; 80061; 80076; 81003; 81015; 82947; 83036; 83880; 84439; 84443; 84484; 85025; 85347; 85610; 85730; 87086; 87088; 92928; 93005; 93306; 93458; 94760; 96372; 96374; 96375; 99285; C1725; C1893; C9113; J0153; J0360; J1644; J1815; J2250; J2270; J2405; J2550; J2765; J3010; J3480; J7030; J7040; Q9967; U0003

== ENCOUNTER 2022-03-19 03:06 | Inpatient (IN) | payer OTHER, SELFPAY ==
--- OUTSIDE RECORDS SUMMARY | 2022-03-19 03:16 | XMS REPORT | Continuity of Care Document ---
:1965 Author Organization [facility] t Address [address] [place] [address] Care Team Providers Name Role Phone [facility] Primary Care Physician JASON CANTU Attending Clinician Unavailable Jason Cantu MD Attending Clinician Doctor Unassigned, [place] Attending Clinician Unavailable MARGOT HERNANDEZ Attending Clinician Unavailable Margot Hernandez MD Attending Clinician HEBER SANTO Attending Clinician Unavailable Leslie Bills Attending Clinician Heber Santo MD Attending Clinician [phone] [place] Attending Clinician Unavailable [address] [place] Attending Clinician JASON CANTU Admitting Clinician Unavailable HEBER SANTO Admitting Clinician Unavailable Heber Santo MD Admitting Clinician [phone] [place] Admitting Clinician Unavailable Payers Payer Name Policy Type Policy Number Effective Date Expiration Date [employer] [id number] 2021 00:00:00 MEDICAID SSI PENDING 2021 PENDING 00:00:00 Problems Condition Condition Condition Status Onset Resolution Last Treating Co mments Source Name Details Category Date Date Treatment Clinician Date Dizziness Dizziness Disease Active 2020-07 Uni vers 2-28 ity of 00:00: [place] 00 Medical Branch Diabetic Diabetic Disease Active Unive rs retinal retinal 5-23 [place] of hemorrhage [place] [facility] [place] Vitreous Vitreous Disease Active Overview: Un tatyana hemorrhage hemorrhage 5-20 Formattin ity of of right of right 00:00: g of this [place] as eye eye 00 note Medical might be Branch different from the original. Added automatic ally from request for surgery [id number] Obesity Obesity Disease Active 2017-07 Univers (BMI (BMI 2-03 ity of 30-39.9) 30-39.9) 00:00: [place] 00 Medical Branch Need for Need for Disease Active Unive rs Tdap Tdap 11-24 ity of vaccinatio vaccinatio 00:00: [place] n n 00 Medical Branch Diabetes Diabetes Disease Active Overview: Un tatyana mellitus mellitus 11-24 Formattin ity of type 2, type 2, 00:00: g of this [place] uncontroll uncontroll 00 note Me dical ed, ed, might be Branch 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 different complicati complicati from the ons ons original. ICD10 Diagnosis Term [place] [employer] Essential Essential Disease Active Overview: Univers hypertensi hypertensi 11-24 Formattin ity of on on 00:00: g of this [place] 00 note Medical might be Branch different from the original. ICD10 Diagnosis Term [place] [employer] Acquired Acquired Disease Active Unive rs hypothyroi hypothyroi 11-24 it y of dism dism 00:00: [place] 00 Medical Branch History of History of Disease Active U nivers tubal tubal 11-24 ity of ligation ligation 00:00: [place] 00 Medical Branch Morbid Morbid Disease Active Univers obesity obesity 11-24 ity of 00:00: [place] 00 Medical Branch Genital Genital Disease Active Univers warts warts 11-24 ity of 00:00: [place] 00 Medical Branch Encounter Encounter Disease Active Overview: Univers for for 11-24 Formattin ity of routine routine 00:00: g of this [place] gynecologi gynecologi 00 note Me dical theron theron might be Branch examinatio examinatio different n n from the original. ICD10 Diagnosis Term [place] [employer] Boil Boil Disease Active Univers 11-24 ity of 00:00: [place] [facility] Surveillan Surveillan Disease Active Overview : Univers ce of ce of 11-24 Formattin ity of previously previously 00:00: g of this [place] prescribed prescribed 00 note Me dical contracept contracept might be Branch brock method brock method different from the original. ICD10 Diagnosis Term [place] [employer] Diabetes Diabetes Problem Active 2019-03-28 Memoria mellitus mellitus 02:03:10 l (disorder) (disorder) He rmann Active Problem 03/28/2019 [facility] Hyperlipid Hyperlipi Problem Active 2019-03-28 Memoria emia demia 02:03:10 l (disorder) (disorder) [place] r[place] Active Problem 03/28/2019 [facility] Hypertensi Hypertens Problem Active 2019-03-28 Memoria ve brock 02:03:10 l disorder, disorder, Herm maddie systemic systemic arterial arterial (disorder) (disorder) Active Problem 03/28/2019 [facility] Peripheral Periphera Problem Active 2019-03-28 [facility] nerve l nerve 02:03:10 l disease disease [place] (disorder) (disorder) Active Problem 03/28/2019 [facility] Allergies, Adverse Reactions, Alerts Allergy Allergy Status Severity Reaction(s) Onset Inactive Treating Comm ents Source Name Type Date Date Clinician PENICILL DRUG Active Rash 2020-07 Univers IN INGREDI 09-26 ity of 00:00: [place] [facility] Penicill Propensi Active Rash 2020-07 Univer s in ty to 09-26 ity of adverse 00:00: [place] reaction 00 Medical s Branch NO KNOWN Drug Active Univers ALLERGIE Class ity of S [place] [facility] Social History Social Habit Start Date Stop Date Quantity Comments Source History Replaced by [facility] o f Alcohol Comment [place] Med ical Branch Exposure to 2021-07-23 2021-08-22 Not sure [place] of SARS-CoV-2 00:00:00 09:04:00 [place] [facility] (event) Branch History [facility] 2021-08-22 2021-08-22 1 University o f Alcohol Frequency 00:00:00 00:00:00 [place] M edical Branch History [facility] 2021-08-22 2021-08-22 1 University o f Alcohol Std 00:00:00 00:00:00 [place] Medical Drinks Branch History SDOH 2021-08-22 2021-08-22 1 University o f Alcohol Binge 00:00:00 00:00:00 [place] Medic al Branch History SDOH 2021-08-22 2021-08-22 5 University o f Stress 00:00:00 00:00:00 [place] [facility] History SDOH 2021-08-22 2021-08-22 1 University o f Financial 00:00:00 00:00:00 [place] [facility] History SDOH Food 2021-08-22 2021-08-22 1 Univers ity of Worry 00:00:00 00:00:00 [place] [facility] History SDOH Food 2021-08-22 2021-08-22 1 Univers ity of Scarcity 00:00:00 00:00:00 [place] [facility] History SDOH 2021-08-22 2021-08-22 2 University o f Transport Med 00:00:00 00:00:00 [place] Medic al Branch History SDOH 2021-08-22 2021-08-22 2 University o f Transport Non-Med 00:00:00 00:00:00 [place] M edical Branch Alcohol intake 2021-08-13 2021-08-13 Current drinker Unive rsity of 00:00:00 00:00:00 of alcohol [place] [facility] (finding) Branch Social History 2019-03-25 2019-03-25 [facility] [place] [facility] 20:40:29 20:40:29 [birth year] Universit y of 00:00:00 00:00:00 [facility] Branch Smoking Status Start Date Stop Date Source Never smoker [facility] Branch Medications Ordered Filled Start Stop Current Ordering Indication Dosage Frequency Signature Comments Components Source Medication Medication Date Date Medication? Clinician (SIG) Name Name pantoprazol Yes 40mg Take 40 mg Univers e 1-24 by mouth ity of (PROTONIX) 09:46: daily. [place] 40 mg EC 15 Medical tablet Branch amLODIPine Yes 10mg Take 10 mg U nivers 10 mg 1-24 by mouth ity of tablet 09:46: daily. [place] 15 Medical Branch metoprolol Yes 50mg Take 50 mg U nivers tartrate 50 -24 by mouth 2 it y of mg tablet 09:46: (two) [place] 15 times Medical daily. Branch clopidogreL Yes 75mg Take 75 mg Univers (PLAVIX) 75 -24 by mouth ity of mg tablet 09:46: daily. [place] 15 Medical Branch atorvastati Yes 80mg Take 80 mg Univers n 80 mg -24 by mouth ity of tablet 09:46: at [place] 15 bedtime. Medical Branch iopamidol 2021- No [id number] 100mL 100 mL, Univers (ISOVUE 08-17 Intravenou ity o f 370-500 mL) 11:45: 10:39 s, ONCE, 1 [place] injection 00 :00 dose, On Medica l 100 mL Wed Branch 08/17/21 at 0545, Routine ketorolac 2021- No 30mg 30 mg, Unive rs (TORADOL) 08-17 Slow IV ity of injection 10:00: 08:52 Push, [place] 30 mg 00 :00 ONCE, 1 Medical dose, On Branch Sun08/17/21 at 0400, Routine
meat service team member approving Restricted medication : JASON CANTU diphenhydrA 2021- No 25mg 25 mg, Uni vers MINE 08-17 Slow IV ity of (BENADRYL) 10:00: 08:52 Push, [place] injection 00 :00 ONCE, 1 Medical 25 mg dose, On Branch 08/17/21 at 0400, STAT metoclopram 2021- No 10mg 10 mg, Uni vers quentin HCl 08-17 Slow IV ity of (REGLAN) 10:00: 08:52 Push, [place] injection 00 :00 ONCE, 1 Medical 10 mg dose, On Branch 08/17/21 at 0400, REGAN butalbital- Yes [id number] 1{tbl} Take 1 Univers acetaminoph 08-17 tablet by ity of en-caff 00:00: mouth [place] 50-325-40 00 every 6 Medical mg tablet (six) Branch hours as needed (Headache) . atropine Yes 1[drp] 1 Drop, Univ ers (ISOPTO 1-16 Left Eye, ity of ATROPINE) 1 02:00: BID, First [place] % 00 dose on Medical ophthalmic Sat Branch drops 1 08/13/21 at Drop 2000, Until Discontinu ed, Routine dorzolamide 0 Yes 1[drp] 1 Drop, U nivers -timoloL 1-16 Left Eye, ity of (COSOPT) 02:00: BID, First [place] as 22.3-6.8 00 dose on Medical mg/mL Sat Branch ophthalmic 08/13/21 at drops 1 2000, Drop Until Discontinu ed, Routine latanoprost 0 Yes 1[drp] 1 Drop, U nivers (XALATAN) 1-15 Left Eye, ity o f 0.005 % 23:00: QPM, [place] ophthalmic 00 dose on Medica l drops 1 Sat Branch Drop 08/13/21 at 1700, Until Discontinu ed, Routine prednisoLON 0 Yes 1[drp] 1 Drop, U nivers E acetate 1-15 Left Eye, ity o f (PRED-FORTE 22:00: QID, First ) 1 % 00 dose on Medical ophthalmic Sat Branch suspension 08/13/21 at drops 1 1600, Drop Until Discontinu ed, Routine brimonidine 0 Yes 1[drp] 1 Drop, U nivers (ALPHAGAN) 1-15 Left Eye, ity of 0.2 % 20:00: Q8H, First ophthalmic 00 dose on Medica l solution 1 Sat Branch Drop 08/13/21 at 1400, Until Discontinu ed, Routine pantoprazol Yes 40mg Take 40 mg Univers e 07-31 by mouth ity of (PROTONIX) 06:19: daily. [place] 40 mg 05 Medical tablet Branch amLODIPine Yes 10mg Take 10 mg U nivers 10 mg 07-31 by mouth ity of tablet 06:19: daily. [place] 05 Medical Branch metoprolol Yes 50mg Take 50 mg U nivers tartrate 50 07-31 by mouth 2 it y of mg tablet 06:19: (two) [place] 05 times Medical daily. Branch clopidogreL Yes 75mg Take 75 mg Univers (PLAVIX) 75 07-31 by mouth ity of mg tablet 06:19: daily. [place] [address] Medical Branch atorvastati 0 Yes 80mg Take 80 mg Univers n 80 mg 1-02 by mouth ity of tablet 06:19: at [place] [address] bedtime. Medical Branch pantoprazol 0 Yes 40mg Take 40 mg Univers e 1-02 by mouth ity of (PROTONIX) 06:19: daily. [place] 40 mg EC 05 Medical tablet Branch amLODIPine 0 Yes 10mg Take 10 mg U nivers 10 mg 1-02 by mouth ity of tablet 06:19: daily. [place] [address] Medical Branch metoprolol 0 Yes 50mg Take 50 mg U nivers tartrate 50 1-02 by mouth 2 it y of mg tablet 06:19: (two) [place] 05 times Medical daily. Branch clopidogreL 0 Yes 75mg Take 75 mg Univers (PLAVIX) 75 1-02 by mouth ity of mg tablet 06:19: daily. [place] [address] Medical Branch atorvastati 0 Yes 80mg Take 80 mg Univers n 80 mg 1-02 by mouth ity of tablet 06:19: at [place] [address] bedtime. Medical Branch pantoprazol 0 Yes 40mg Take 40 mg Univers e 1-02 by mouth ity of (PROTONIX) 06:19: daily. [place] 40 mg EC 05 Medical tablet Branch amLODIPine 0 Yes 10mg Take 10 mg U nivers 10 mg 1-02 by mouth ity of tablet 06:19: daily. [place] [address] Medical Branch metoprolol 0 Yes 50mg Take 50 mg U nivers tartrate 50 1-02 by mouth 2 it y of mg tablet 06:19: (two) [place] 05 times Medical daily. Branch clopidogreL 0 Yes 75mg Take 75 mg Univers (PLAVIX) 75 1-02 by mouth ity of mg tablet 06:19: daily. [place] [address] Medical Branch atorvastati 0 Yes 80mg Take 80 mg Univers n 80 mg 1-02 by mouth ity of tablet 06:19: at [place] [address] bedtime. Medical Branch insulin NPH Yes 6U 6 Units, Un tatyana (HUMULIN N) 1- Subcutaneo it y of injection 6 03:00: , [place] Units 00 QAM+HS, Medical First dose Branch (after last modificati on) on Sun07/29/21 at 2100, Until Discontinu ed, Routine insulin 2020-07 Yes 4U 4 Units, Univer s regular 2-31 Subcutaneo ity of human 23:30: us, BID [place] (HUMULIN R) 00 MEALS, Medica l injection 4 First dose Br anch Units (after last modificati on) on Sun07/29/21 at 1730, Until Discontinu ed, Routine brimonidine 2020-07 Yes 1[drp] 1 Drop, U nivers (ALPHAGAN) 2- Left Eye, ity of 0.2 % 22:00: Q4H, First [place] ophthalmic 00 dose Medical solution 1 (after Branch Drop last modificati on) on Sun07/29/21 at 1600, Until Discontinu ed, Routine pantoprazol 2020-07 Yes 40mg Take 40 mg Univers e 2-31 by mouth ity of (PROTONIX) 20:34: daily. [place] 40 mg 02 Medical tablet Branch amLODIPine 2020-07 Yes 10mg Take 10 mg U nivers 10 mg 2-31 by mouth ity of tablet 20:34: daily. [place] [address] Medical Branch metoprolol 2020-07 Yes 50mg Take 50 mg U nivers tartrate 50 2-31 by mouth 2 it y of mg tablet 20:34: (two) [place] 02 times Medical daily. Branch clopidogreL 2020-07 Yes 75mg Take 75 mg Univers (PLAVIX) 75 2-31 by mouth ity of mg tablet 20:34: daily. [place] [address] Medical Branch atorvastati 2020-07 Yes 80mg Take 80 mg Univers n 80 mg 2-31 by mouth ity of tablet 20:34: at [place] 02 bedtime. Medical Branch insulin NPH 2020-07 20U inject 20 Univers and regular 2-31 12-31 Units ity of human 70-30 18:32: 00:00 under the [place] (NOVOLIN 31 :00 skin 2 Medical 70/30 U-100 (two) Branch INSULIN) times 100 unit/mL daily (70-30) before injection breakfast and dinner. guaiFENesin 2020-07 Yes 200mg 200 mg, Un tatyana 100 mg/5 mL 2-31 Oral, Q6H, it y of solution 00:00: First dose [place] as 200 mg 00 (after Medical last Branch modificati on) on Jessica 07/28/21 at 1800, Until Discontinu ed, Routine artificial 2020-07- No [id number] 1[drp] Place 1 Univers tears, 11-27 Drop in ity of hypromellos 00:00: 04:59 both eyes [place] e, 0.3 % 00 :00 at bedtime Medic al ophthalmic for 120 Branch gel days. artificial 2020-07- No [id number] 1[drp] Place 1 Univers tears, 11-27 Drop in ity of hypromellos 00:00: 04:59 both eyes [place] e, 0.3 % 00 :00 at bedtime Medic al ophthalmic for 120 Branch gel days. artificial 2020-07- No [id number] 1[drp] Place 1 Univers tears, 11-27 Drop in ity of hypromellos 00:00: 04:59 both eyes [place] e, 0.3 % 00 :00 at bedtime Medic al ophthalmic for 120 Branch gel days. artificial 2020-07- No [id number] 1[drp] Place 1 Univers tears, 11-27 Drop in ity of hypromellos 00:00: 04:59 both eyes [place] e, 0.3 % 00 :00 at bedtime Medic al ophthalmic for 120 Branch gel days. latanoprost 2020-07- No [id number] 1[drp] Place 1 Univers 0.005 % 10-28 Drop in ity of ophthalmic 00:00: 04:59 [place] drops 00 :00 at bedtime Medical for 90 Branch days. insulin NPH 2020-07- No [id number] 6U inject 6 Univers 100 unit/mL 10-28 Units ity of injection 00:00: 04:59 under the [place] 00 :00 skin every Medical morning Branch and at bedtime for 90 days. artificial 2020-07- No [id number] 1[drp] Place 1 Univers tears,hypro 10-28 Drop in ity of mellose, 00:00: 04:59 both eyes [place] as 0.5 % 00 :00 4 (four) Medical ophthalmic times Branch drops daily for 90 days. dorzolamide 2020-07- No [id number] 1[drp] Place 1 Univers -timoloL 10-28 Drop in ity of 22.3-6.8 00:00: 04:59 left eye 2 [place] mg/mL 00 :00 (two) Medical ophthalmic times Branch drops daily for 90 days. brimonidine 2020-07- No [id number] 1[drp] Place 1 Univers 0.2 % 10-28 Drop in ity of ophthalmic 00:00: 04:59 left eye [place] solution 00 :00 every 4 Medical (four) Branch hours for 90 days. insulin 2020-07- No [id number] 4U inject 4 Univers regular 10-28 Units ity of human 100 00:00: 04:59 under the [place] unit/mL 00 :00 skin 2 Medical injection (two) Branch times daily with meals for 90 days. latanoprost 2020-07- No [id number] 1[drp] Place 1 Univers 0.005 % 10-28 Drop in ity of ophthalmic 00:00: 04:59 left eye [place] drops 00 :00 at bedtime Medical for 90 Branch days. insulin NPH 2020-07- No [id number] 6U inject 6 Univers 100 unit/mL 10-28 Units ity of injection 00:00: 04:59 under the [place] 00 :00 skin every Medical morning Branch and at bedtime for 90 days. artificial 2020-07- No [id number] 1[drp] Place 1 Univers tears,hypro 10-28 Drop in ity of mellose, 00:00: 04:59 both eyes [place] 0.5 % 00 :00 4 (four) Medical ophthalmic times Branch drops daily for 90 days. dorzolamide 2020-07- No [id number] 1[drp] Place 1 Univers -timoloL 10-28 Drop in ity of 22.3-6.8 00:00: 04:59 left eye 2 [place] mg/mL 00 :00 (two) Medical ophthalmic times Branch drops daily for 90 days. brimonidine 2020-07- No [id number] 1[drp] Place 1 Univers 0.2 % 10-28 Drop in ity of ophthalmic 00:00: 04:59 left eye [place] solution 00 :00 every 4 Medical (four) Branch hours for 90 days. insulin 2020-07- No [id number] 4U inject 4 Univers regular 10-28 Units ity of human 100 00:00: 04:59 under the [place] unit/mL 00 :00 skin 2 Medical injection (two) Branch times daily with meals for 90 days. latanoprost 2020-07- No [id number] 1[drp] Place 1 Univers 0.005 % 10-28 Drop in ity of ophthalmic 00:00: 04:59 left eye [place] drops 00 :00 at bedtime Medical for 90 Branch days. insulin NPH 2020-07- No [id number] 6U inject 6 Univers 100 unit/mL 10-28 Units ity of injection 00:00: 04:59 under the [place] 00 :00 skin every Medical morning Branch and at bedtime for 90 days. artificial 2020-07- No [id number] 1[drp] Place 1 Univers tears,hypro 10-28 Drop in ity of mellose, 00:00: 04:59 both eyes [place] as 0.5 % 00 :00 4 (four) Medical ophthalmic times Branch drops daily for 90 days. dorzolamide 2020-07- No [id number] 1[drp] Place 1 Univers -timoloL 10-28 Drop in ity of 22.3-6.8 00:00: 04:59 left eye 2 [place] mg/mL 00 :00 (two) Medical ophthalmic times Branch drops daily for 90 days. brimonidine 2020-07- No [id number] 1[drp] Place 1 Univers 0.2 % 10-28 Drop in ity of ophthalmic 00:00: 04:59 left eye [place] solution 00 :00 every 4 Medical (four) Branch hours for 90 days. insulin 2020-07- No [id number] 4U inject 4 Univers regular - Units ity of human 100 00:00: 04:59 under the [place] unit/mL 00 :00 skin 2 Medical injection (two) Branch times daily with meals for 90 days. latanoprost 2020-07- No [id number] 1[drp] Place 1 Univers 0.005 % 10-28 Drop in ity of ophthalmic 00:00: 04:59 left eye [place] drops 00 :00 at bedtime Medical for 90 Branch days. insulin NPH 2020-07- No [id number] 6U inject 6 Univers 100 unit/mL 10-28 Units ity of injection 00:00: 04:59 under the [place] 00 :00 skin every Medical morning Branch and at bedtime for 90 days. artificial 2020-07- No [id number] 1[drp] Place 1 Univers tears,hypro 10-28 Drop in ity of mellose, 00:00: 04:59 both eyes [place] 0.5 % 00 :00 4 (four) Medical ophthalmic times Branch drops daily for 90 days. dorzolamide 2020-07- No [id number] 1[drp] Place 1 Univers -timoloL 10-28 Drop in ity of 22.3-6.8 00:00: 04:59 left eye 2 [place] mg/mL 00 :00 (two) Medical ophthalmic times Branch drops daily for 90 days. brimonidine 2020-07- No [id number] 1[drp] Place 1 Univers 0.2 % 10-28 Drop in ity of ophthalmic 00:00: 04:59 left eye [place] solution 00 :00 every 4 Medical (four) Branch hours for 90 days. insulin 2020-07- No [id number] 4U inject 4 Univers regular 10-28 Units ity of human 100 00:00: 04:59 under the [place] unit/mL 00 :00 skin 2 Medical injection (two) Branch times daily with meals for 90 days. meclizine 2020-07- No 25mg 25 mg, Unive rs (TRAVEL-EAS 07-29 Oral, ity of E 23:57: 01:58 ONCE, 1 [place] (MECLIZINE) 00 :00 dose, On Medi theron ) tablet 25 [place] Branch mg 07/28/21 at 1800, Routine Sliding 2020-07 Yes Subcutaneo Univ ers Scale 2-30 us, AC+HS, ity of Insulin-Reg 22:30: First dose [place] ular + Fsbg 00 on Jessica Medica l Testing 07/28/21 Branch at 1630, Until Discontinu ed, Routine insulin 2020-07- No 7U 7 Units, Unive rs regular 07-29 Subcutaneo ity o f human 17:45: 23:16 us, BID [place] (HUMULIN R) 00 :16 MEALS, Medica l injection 7 First dose Br anch Units on [place] 07/28/21 at 1145, Until Discontinu ed, Routine glucagon 2020-07 Yes 1mg 1 mg, Univers (GLUCAGEN 2-30 Intramuscu ity of DIAGNOSTIC 17:41: lar, PRN, [place] KIT) 44 Starting Medical injection 1 on [place] Branch mg 07/28/21 at 1141, Until Discontinu ed, REGAN, Blood Glucose < or = 70 mg/dL and patient is unable to swallow or has mental changes. dextrose 50 2020-07 Yes 25mL 25 mL, Univ ers % in water 2-30 Slow IV ity of (D50W) 17:41: Push, PRN, [place] injection 44 Starting Medica l 25 mL on [place] Branch 07/28/21 at 1141, Until Discontinu ed, REGAN, Blood Glucose < or = 70 mg/dL and patient is unable to swallow or has mental status changes. insulin NPH 2020-07- No 7U 7 Units, U nivers (HUMULIN N) 07-29 Subcutaneo i ty of injection 7 16:00: 23:16 us, [place] Units 00 :16 QAM+HS, Medical First dose Branch on [place] 07/28/21 at 1000, Until Discontinu ed, Routine levothyroxi 2020-07- No 50ug 50 mcg, Un tatyana ne 30 Oral, ity of (SYNTHROID) 12:00: 11:21 QAM-0600, [place] tablet 50 00 :00 1 dose, Medical mcg First dose Branch on [place] 07/28/21 at 0600, Routine artificial 2021-1 Yes 1[drp] 1 Drop, Un tatyana tears 230 Both Eyes, ity of (hypromello 03:00: QHS, First [place] se) 00 dose on Medical (GENTEAL Sun Branch TEARS 07/27/21 SEVERE GEL) at 2100, 0.3 % Until ophthalmic Discontinu gel 1 Drop ed, Routine latanoprost 2020-07 Yes 1[drp] 1 Drop, U nivers (XALATAN) 2 Left Eye, ity o f 0.005 % 03:00: QHS, [place] ophthalmic 00 dose on Medica l drops 1 Wed Branch Drop 07/27/21 at 2100, Until Discontinu ed, Routine furosemide 2020-07- No 40mg 40 mg, Univ ers (LASIX) 07-29 Slow IV ity of injection 02:00: 14:26 Push, [place] 40 mg 00 :07 Q12H, Medical First dose Branch (after last modificati on) on Sun07/27/21 at 1999, Until Discontinu ed, Routine acetaZOLAMI 2020-07- No 250mg 250 mg, U nivers DE (DIAMOX) 07-29 Oral, BID, i ty of tablet 250 02:00: 21:58 First dose [place] mg 00 :21 on Sun Medical 07/27/21 Branch at 2000, Until Discontinu ed, Routine brimonidine 2020-07- No 1[drp] 1 Drop, Univers (ALPHAGAN) 07-29 Left Eye, ity of 0.2 % 01:00: 21:58 Q1H, First [place] ophthalmic 00 :21 dose on Medica l solution 1 Sun Branch Drop 07/27/21 at 1900, Until Discontinu ed, Routine gadoteridol 2020-07- No [id number] .2mL/kg 16.32 mL Univers (PROHANCE-2 07-27 (0.2 mL/kg i ty of 0 mL) 21:45: 21:45 ?81.6 kg), [place] injection 00 :00 Intravenou Medi theron 16.32 mL s, ONCE, 1 Branc h dose, On Sun07/27/21 at 1545, Routine sulfur 2020-07- No [id number] 5mL 5 mL, Univ ers hexafluorid 07-27 Intravenou i ty of e microsphr 19:15: 19:15 s, ONCE, 1 [place] (LUMASON) 00 :00 dose, On Medica l injection 5 Sun Branch mL 07/27/21 at 1315, Routine
meat service team member approving Restricted medication : VELVETJorjePERLA DONY HONG LORazepam 2020-07- No .5mg 0.5 mg, Univ ers (ATIVAN) 07-27 Oral, ity of tablet 0.5 17:30: 19:53 ONCE, 1 [place] as mg 00 :00 dose, On Medical Sun Branch 07/27/21 at 1130, Routine enoxaparin 2020-07 Yes 40mg 40 mg, Unive rs (LOVENOX) Subcutaneo ity of injection 15:00: us, DAILY, [place] 40 mg 00 First dose Medical on Sun Branch 07/27/21 at 0900, Until Discontinu ed, Routine pantoprazol 2020-07 Yes 40mg 40 mg, Univ ers e Oral, ity of (PROTONIX) 15:00: DAILY, [place] EC tablet 00 First dose Medi theron 40 mg on Sun Branch 07/27/21 at 0900, Until Discontinu ed, Routine clopidogreL 2020-07 Yes 75mg 75 mg, Univ ers (PLAVIX) Oral, ity of tablet 75 15:00: DAILY, [place] mg 00 First dose Medical on Sun Branch 07/27/21 at 0900, Until Discontinu ed, Routine aspirin 2020-07 Yes 81mg 81 mg, Univers chewable Oral, ity of tablet 81 15:00: DAILY, [place] mg 00 First dose Medical on Sun Branch 07/27/21 at 0900, Until Discontinu ed, Routine furosemide 2020-07 No 40mg 40 mg, Univ ers (LASIX) 07-27 Slow IV ity of injection 15:00: 18:46 Push, [place] 40 mg 00 :39 DAILY, Medical First dose Branch on Sun07/27/21 at 0900, Until Discontinu ed, Routine artificial 2020-07 Yes 1[drp] 1 Drop, Un tatyana tears(hypro Both Eyes, it y of mellose) 14:00: QID, First [place] as (ISOPTO-TEA 00 dose on Medic al RS) 0.5 % Sun [place] ophthalmic 07/27/21 drops 1 at 0800, Drop Until Discontinu ed, Routine dorzolamide 2020-07 Yes 1[drp] 1 Drop, U nivers -timoloL Left Eye, ity of (COSOPT) 14:00: BID, First [place] as 22.3-6.8 00 dose on Medical mg/mL Sun [place] ophthalmic 07/27/21 drops 1 at 0800, Drop Until Discontinu ed, Routine brimonidine 2020-07 No 1[drp] 1 Drop, Univers (ALPHAGAN) 07-28 Left Eye, ity of 0.2 % 12:00: 00:01 Q8H, First [place] ophthalmic 00 :35 dose on Medica l solution 1 [facility] Drop 07/27/21 at 0600, Until Discontinu ed, Routine guaiFENesin 2020-07 No 200mg 200 mg, U nivers 100 mg/5 mL 07-28 Oral, Q6H, i ty of solution 06:00: 18:57 First dose [place] 200 [place] 00 :52 on [facility] Medical 07/27/21 Branch at 0000, Until Discontinu ed, Routine magnesium 2020-07 No 4g 4 g, IV Univ ers sulfate in 07-27 Piggyback, it y of water 4 04:30: 05:32 ONCE, 1 [place] gram/50 mL 00 :00 dose, On Medic al (8 %) IV [facility] Piggyback 4 07/26/21 g at 2230, Routine atorvastati 2020-07 Yes 80mg 80 mg, Univ ers n (LIPITOR) Oral, QHS, it y of tablet 80 03:00: First dose [place] mg 00 on [facility] 07/26/21 Branch at 2100, Until Discontinu ed, Routine Sliding 2020-07- No Subcutaneo Uni vers Scale 07-28 us, TID ity of Insulin - 03:00: 17:42 MEALS+HS, [place] Lispro 00 :21 First dose Medical (HumaLOG) + on [facility] Fsbg 07/26/21 Testing at 2100, Until Discontinu ed, Routine benzonatate 2020-07 Yes 200mg 200 mg, Un [place] (TESSALON 2-29 Oral, TID, ity of PERLES) 02:00: [place] capsule 200 00 on [facility] Medica l mg 07/26/21 Branch at 1999, Until Discontinu ed, Routine metoprolol 2020-07 Yes 50mg 50 mg, Unive rs tartrate 2-29 Oral, BID, ity o f (LOPRESSOR) 02:00: First dose [place] tablet 50 00 on [facility] Medical mg 07/26/21 Branch at 1999, Until Discontinu ed, Routine gabapentin 2020-07 Yes 300mg 300 mg, Uni vers (NEURONTIN) 2-29 Oral, TID, it y of capsule 300 02:00: First dose [place] mg 00 on [facility] 07/26/21 Branch at 1999, Until Discontinu ed, Routine glucagon 2020-07 Yes 1mg 1 mg, Univers (GLUCAGEN Intramuscu ity of DIAGNOSTIC 01:54: lar, PRN, [place] KIT) 31 Starting Medical injection 1 on [facility] Branch mg 07/26/21 at 1954, Until Discontinu ed, REGAN, Blood Glucose < or = 70 mg/dL and patient is unable to swallow or has mental changes. dextrose 50 2020-07 Yes 25mL 25 mL, Univ ers % in water Slow IV ity of (D50W) 01:54: Push, PRN, [place] injection 31 Starting Medica l 25 mL on [facility] 07/26/21 at 1954, Until Discontinu ed, REGAN, Blood Glucose < or = 70 mg/dL and patient is unable to swallow or has mental status changes. furosemide 2020-07 No 20mg 20 mg, Univ ers (LASIX) 2-27 07- Slow IV ity of injection 01:40: 01:50 Push, [place] 20 mg 00 :00 ONCE, 1 Medical dose, On Branch Sun07/26/21 at 1945, Routine acetaminoph 2020-07 Yes 650mg 650 mg, Un taty[place] en 2-29 Oral, ity of (TYLENOL) 00:52: Q6HPRN, [place] tablet 650 38 Starting Medic al mg on [facility] Branch 07/26/21 at 1852, Until Discontinu ed, Routine, Pain (scale 1-3) ipratropium 2020-07 Yes 3mL 3 mL, Unive rs -albuteroL Inhalation ity of (DUONEB) 00:47: , Q6HPRN, [place] 0.5 mg-3 21 Starting Medical mg(2.5 mg on [facility] base)/3 mL 07/26/21 nebulizer at 1847, solution 3 Until mL Discontinu ed, Routine, Wheezing, Shortness of Breath amLODIPine 2020-07 Yes 10mg 10 mg, Unive rs (NORVASC) Oral, ity of tablet 10 00:30: DAILY, [place] mg 00 First dose Medical on [facility] 07/26/21 at 1830, Until Discontinu ed, Routine sotrovimab 2020-07 No 500mg 500 mg, IV Univers (XEVUDY) 07-27 Infusion, ity o f 500 mg in 00:15: 02:21 ONCE, [place] NaCl 0.9% 00 :00 Administer Medi theron (NS) 50 mL over 30 Branch MINI-BAG Minutes, On [facility] 07/26/21 at 1815, For [address] able 24 hours refrigerat ed or 6 hours at room temperatur e including transporta tion and infusion time.
clopidogreL 2020-07 No 75mg 75 mg, Uni vers (PLAVIX) 07-27 Oral, ONCE ity of tablet 75 00:05: 01:52 NOW, 1 [place] mg 00 :00 dose, On [facility] 07/26/21 at 1815, Routine aspirin 2020-07 No 81mg 81 mg, Univers chewable 07-27 Oral, ONCE ity of tablet 81 00:05: 01:50 NOW, 1 [place] mg 00 :00 dose, On [facility] 07/26/21 at 1815, Routine NaCl 0.9% 2020-07 No 1000mL at 999 Uni vers (NS) bolus 09-26 mL/hr, ity of infusion 19:15: 20:48 1,000 mL, [place] 1,000 mL 00 :00 IV Medical Infusion, Branch ONCE, 1 dose, On [facility] 07/26/21 at 1315, REGAN lisinopriL 2020-07 Yes [id number] 20mg Take 1 U nivers 20 mg 1-11 tablet by ity of tablet 00:00: mouth [place] 00 daily. Medical Branch metoprolol 2020-07 Yes [id number] 25mg Take 1 U nivers succinate 1-11 tablet by ity o f XL 25 mg 24 00:00: mouth [place] hr tablet 00 every Medical evening. Branch gabapentin 2020-07 Yes [id number] 300mg Take 1 Univers 300 mg 1-11 capsule by ity of capsule 00:00: mouth 3 [place] 00 (three) Medical times Branch daily. glipiZIDE 2020-07 Yes [id number] 10mg Take 1 Un [place] 10 mg 1-11 tablet by ity of tablet 00:00: mouth 2 [place] 00 (two) Medical times Branch daily before breakfast and dinner. lisinopriL 2020-07 Yes [id number] 20mg Take 1 U nivers 20 mg 1-11 tablet by ity of tablet 00:00: mouth [place] 00 daily. Medical Branch metoprolol 2020-07 Yes [id number] 25mg Take 1 U nivers succinate 1-11 tablet by ity o f XL 25 mg 24 00:00: mouth [place] hr tablet 00 every Medical evening. Branch gabapentin 2020-07 Yes [id number] 300mg Take 1 Univers 300 mg 1-11 capsule by ity of capsule 00:00: mouth 3 [place] 00 (three) Medical times Branch daily. glipiZIDE 2020-07 Yes [id number] 10mg Take 1 Un [place] 10 mg 1-11 tablet by ity of tablet 00:00: mouth 2 [place] 00 (two) Medical times Branch daily before breakfast and dinner. lisinopriL 2020-07 Yes [id number] 20mg Take 1 U nivers 20 mg 1-11 tablet by ity of tablet 00:00: mouth [place] 00 daily. Medical Branch metoprolol 2020-07 Yes [id number] 25mg Take 1 U nivers succinate 1-11 tablet by ity o f XL 25 mg 24 00:00: mouth [place] hr tablet 00 every Medical evening. Branch gabapentin 2020-07 Yes [id number] 300mg Take 1 Univers 300 mg 1-11 capsule by ity of capsule 00:00: mouth 3 [place] 00 (three) Medical times Branch daily. glipiZIDE 2020-07 Yes [id number] 10mg Take 1 Un [place] 10 mg 1-11 tablet by ity of tablet 00:00: mouth 2 [place] 00 (two) Medical times Branch daily before breakfast and dinner. lisinopriL 2020-07 Yes [id number] 20mg Take 1 U nivers 20 mg 1-11 tablet by ity of tablet 00:00: mouth [place] 00 daily. Medical Branch metoprolol 2020-07 Yes [id number] 25mg Take 1 U nivers succinate 1-11 tablet by ity o f XL 25 mg 24 00:00: mouth [place] hr tablet 00 every Medical evening. Branch gabapentin 2020-07 Yes [id number] 300mg Take 1 Univers 300 mg 1-11 capsule by ity of capsule 00:00: mouth 3 [place] 00 (three) Medical times Branch daily. glipiZIDE 2020-07 Yes [id number] 10mg Take 1 Un [place] 10 mg 1-11 tablet by ity of tablet 00:00: mouth 2 [place] 00 (two) Medical times Branch daily before breakfast and dinner. gabapentin 2020-07 Yes [id number] 300mg Take 1 Univers 300 mg 1-11 capsule by ity of capsule 00:00: mouth 3 [place] 00 (three) Medical times Branch daily. gabapentin 2020-07 Yes [id number] 300mg Take 1 [facility] 300 mg 1-11 capsule by ity of capsule 00:00: mouth 3 [place] 00 (three) Medical times Branch daily. gabapentin 2020-07 Yes [id number] 300mg Take 1 Univers 300 mg 1-11 capsule by ity of capsule 00:00: mouth 3 [place] 00 (three) Medical times Branch daily. gabapentin 2020-07 Yes [id number] 300mg Take 1 Univers 300 mg 1-11 capsule by ity of capsule 00:00: mouth 3 [place] 00 (three) Medical times Branch daily. gabapentin 2020-07 Yes [id number] 300mg Take 1 Univers 300 mg 1-11 capsule by ity of capsule 00:00: mouth 3 [place] 00 (three) Medical times Branch daily. lisinopriL 2020-07- No [id number] 20mg Take 1 Univers 20 mg 1-11 12-31 tablet by ity of tablet 00:00: 00:00 mouth [place] 00 :00 daily. Medical Branch metoprolol 2020-07- No [id number] 25mg Take 1 Univers succinate 1-11 12-28 tablet by ity of XL 25 mg 24 00:00: 00:00 [place] hr tablet 00 :00 every Medical evening. Branch glipiZIDE 2020-07- No [id number] 10mg Take 1 U nivers 10 mg 08-09 tablet by ity of tablet 00:00: 00:00 mouth 2 [place] 00 :00 (two) Medical times Branch daily before breakfast and dinner. albuterol 2020-07 Yes [id number] 2{puff} Inhale 2 Univers 90 1-07 Puffs ity of mcg/actuati 00:00: every 4 [place] on inhaler 00 (four) Medical hours as Branch needed for Wheezing or Shortness of Breath. methylPREDN 2020-07 Yes [id number] Take by Univers ISolone 4 1-07 mouth ity of mg tablets 00:00: SEE-INSTRU [place] 00 CTIONS. Medical follow Branch package directions benzonatate 2020-07 Yes [id number] 100mg Take 1 Univers 100 mg 1-07 capsule by ity of capsule 00:00: mouth 3 [place] 00 (three) Medical times Branch daily as needed for Cough. albuterol 2020-07 Yes [id number] 2{puff} Inhale 2 Univers 90 1-07 Puffs ity of mcg/actuati 00:00: every 4 [place] on inhaler 00 (four) Medical hours as Branch needed for Wheezing or Shortness of Breath. methylPREDN 2020-07 Yes [id number] Take by Univers ISolone 4 1-07 mouth ity of mg tablets 00:00: SEE-INSTRU [place] 00 CTIONS. Medical follow Branch package directions benzonatate 2020-07 Yes [id number] 100mg Take 1 Univers 100 mg 1-07 capsule by ity of capsule 00:00: mouth 3 [place] 00 (three) Medical times Branch daily as needed for Cough. albuterol 2020-07 Yes [id number] 2{puff} Inhale 2 Univers 90 1-07 Puffs ity of mcg/actuati 00:00: every 4 [place] on inhaler 00 (four) Medical hours as Branch needed for Wheezing or Shortness of Breath. methylPREDN 2020-07 Yes [id number] Take by Univers ISolone 4 1-07 mouth ity of mg tablets 00:00: SEE-INSTRU [place] 00 CTIONS. Medical follow Branch package directions benzonatate 2020-07 Yes [id number] 100mg Take 1 Univers 100 mg 1-07 capsule by ity of capsule 00:00: mouth 3 [place] 00 (three) Medical times Branch daily as needed for Cough. albuterol 2020-07 Yes [id number] 2{puff} Inhale 2 Univers 90 1-07 Puffs ity of mcg/actuati 00:00: every 4 [place] on inhaler 00 (four) Medical hours as Branch needed for Wheezing or Shortness of Breath. methylPREDN 2020-07 Yes [id number] Take by Univers ISolone 4 1-07 mouth ity of mg tablets 00:00: SEE-INSTRU [place] 00 CTIONS. Medical follow Branch package directions benzonatate 2020-07 Yes [id number] 100mg Take 1 Univers 100 mg 1-07 capsule by ity of capsule 00:00: mouth 3 [place] 00 (three) Medical times Branch daily as needed for Cough. albuterol 2020-07 Yes [id number] 2{puff} Inhale 2 Univers 90 1-07 Puffs ity of mcg/actuati 00:00: every 4 [place] on inhaler 00 (four) Medical hours as Branch needed for Wheezing or Shortness of Breath. albuterol 2020-07 Yes [id number] 2{puff} Inhale 2 Univers 90 1-07 Puffs ity of mcg/actuati 00:00: every 4 [place] on inhaler 00 (four) Medical hours as Branch needed for Wheezing or Shortness of Breath. albuterol 2020-07 Yes [id number] 2{puff} Inhale 2 Univers 90 1-07 Puffs ity of mcg/actuati 00:00: every 4 [place] on inhaler 00 (four) Medical hours as Branch needed for Wheezing or Shortness of Breath. albuterol 2020-07 Yes [id number] 2{puff} Inhale 2 Univers 90 1-07 Puffs ity of mcg/actuati 00:00: every 4 [place] on inhaler 00 (four) Medical hours as Branch needed for Wheezing or Shortness of Breath. albuterol 2020-07 Yes [id number] 2{puff} Inhale 2 Univers 90 1-07 Puffs ity of mcg/actuati 00:00: every 4 [place] on inhaler 00 (four) Medical hours as Branch needed for Wheezing or Shortness of Breath. methylPREDN 2020-07- No [id number] Take by Univers ISolone 4 08-05 mouth ity of mg tablets 00:00: 00:00 SEE-INSTRU [place] 00 :00 CTIONS. Medical follow Branch package directions benzonatate 2020-07- No [id number] 100mg Take 1 Univers 100 mg 08-05 capsule by ity of capsule 00:00: 00:00 mouth 3 [place] 00 :00 (three) Medical times Branch daily as needed for Cough. doxycycline 2020-07- No [id number] 100mg Take 1 Univers hyclate 100 08-05 capsule by i ty of mg capsule 00:00: 05:59 mouth 2 [place] 00 :00 (two) Medical times Branch daily for 10 days. doxycycline 2020-07- No [id number] 100mg Take 1 Univers hyclate 100 08-05 capsule by i ty of mg capsule 00:00: 05:59 mouth 2 [place] 00 :00 (two) Medical times Branch daily for 10 days. Glipizide Yes 10 mg, PO, Me moria 8-27 BID, 0 l 20:33: Refill(s) Livalo Yes 4 mg, PO, Memori a 8-27 Daily, 0 l 20:33: Refill(s) Metformin 2018-0 Yes 1,000 mg, Mem oria 8-27 PO, BID, 0 l 20:33: Refill(s) metoprolol Yes 25 mg, PO, M emoria tartrate 8-27 Daily, 0 l 20:33: Refill(s) Lyrica Yes 150 mg, Memoria 8-27 PO, BID, 0 l 20:33: Refill(s) lisinopril 2020- No [id number] 20mg Take 1 Univers 20 mg -23 - tablet by ity of tablet 00:00: 00:00 mouth [place] 00 :00 daily. Medical Branch metoprolol 2020- No [id number] 25mg Take 1 Univers succinate 5-23 -11 tablet by ity of XL 25 mg 24 00:00: 00:00 [place] hr tablet 00 :00 every Medical evening. Branch lisinopril 2020- No [id number] 20mg Take 1 Univers 20 mg -23 -11 tablet by ity of tablet 00:00: 00:00 mouth [place] 00 :00 daily. Medical Branch metoprolol 2020- No [id number] 25mg Take 1 Univers succinate -21 06- tablet by ity of XL 25 mg 24 00:00: 00:00 [place] hr tablet 00 :00 every Medical evening. Branch prednisoLON Yes [id number] 1[drp] Place 1 Univers E acetate 1 5-21 9103 Drop in ity o f % 00:00: right eye [place] ophthalmic 00 4 (four) Medic al suspension times Branch drops daily. tobramycin Yes [id number] 1[drp] Place 1 Univers 0.3 % 5-21 9103 Drop in ity of ophthalmic 00:00: right eye [place] drops 00 4 (four) Medical times Branch daily. prednisoLON Yes [id number] 1[drp] Place 1 Univers E acetate 1 5-21 9103 Drop in ity o f % 00:00: right eye [place] ophthalmic 00 4 (four) Medic al suspension times Branch drops daily. tobramycin Yes [id number] 1[drp] Place 1 Univers 0.3 % 5-21 9103 Drop in ity of ophthalmic 00:00: right eye [place] drops 00 4 (four) Medical times Branch daily. prednisoLON Yes [id number] 1[drp] Place 1 Univers E acetate 1 5-21 9103 Drop in ity o f % 00:00: right eye [place] ophthalmic 00 4 (four) Medic al suspension times Branch drops daily. tobramycin Yes [id number] 1[drp] Place 1 Univers 0.3 % 5-21 9103 Drop in ity of ophthalmic 00:00: right eye [place] drops 00 4 (four) Medical times Branch daily. prednisoLON Yes [id number] 1[drp] Place 1 Univers E acetate 1 5-21 9103 Drop in ity o f % 00:00: right eye [place] ophthalmic 00 4 (four) Medic al suspension times Branch drops daily. tobramycin Yes [id number] 1[drp] Place 1 Univers 0.3 % 12-17 9103 Drop in ity of ophthalmic 00:00: right eye [place] drops 00 4 (four) Medical times Branch daily. prednisoLON 2020- No [id number] 1[drp] Place 1 Univers E acetate 1 12-17 9103 Drop in ity of % 00:00: 00:00 right eye [place] ophthalmic 00 :00 4 (four) Medic al suspension times Branch drops daily. tobramycin 2020- No [id number] 1[drp] Place 1 Univers 0.3 % 12-17 9103 Drop in ity of ophthalmic 00:00: 00:00 right eye [place] drops 00 :00 4 (four) Medical times Branch daily. gabapentin 2020- No [id number] 300mg Take 1 [facility] 300 mg 12-05 capsule by ity of capsule 00:00: 00:00 mouth 3 [place] 00 :00 (three) Medical times Branch daily. gabapentin 2020- No [id number] 300mg Take 1 Univers 300 mg 12-05 capsule by ity of capsule 00:00: 00:00 mouth 3 [place] 00 :00 (three) Medical times Branch daily. GLIPIZIDE Yes [id number] TAKE 1 U nivers 10 mg 4-18 TABLET BY ity of tablet 00:00: MOUTH [place] 00 TWICE Medical DAILY Branch BEFORE BREAKFAST AND DINNER GLIPIZIDE Yes [id number] TAKE 1 U nivers 10 mg 4-18 TABLET BY ity of tablet 00:00: MOUTH [place] 00 TWICE Medical DAILY Branch BEFORE BREAKFAST AND DINNER GLIPIZIDE Yes [id number] TAKE 1 U nivers 10 mg 4-18 TABLET BY ity of tablet 00:00: MOUTH [place] 00 TWICE Medical DAILY Branch BEFORE BREAKFAST AND DINNER GLIPIZIDE Yes [id number] TAKE 1 U nivers 10 mg 4-18 TABLET BY ity of tablet 00:00: MOUTH [place] 00 TWICE Medical DAILY Branch BEFORE BREAKFAST AND DINNER GLIPIZIDE 2020- No [id number] TAKE 1 Univers 10 mg 4-18 12-28 TABLET BY ity of tablet 00:00: 00:00 MOUTH [place] 00 :00 TWICE Medical DAILY Branch BEFORE BREAKFAST AND DINNER glipiZIDE 2018-2020- No [id number] 10mg Take 1 Univers 10 mg 3-11 11-11 tablet by ity of tablet 00:00: 00:00 mouth 2 [place] 00 :00 (two) Medical times Branch daily before breakfast and dinner. glipiZIDE 2018-2020- No [id number] 10mg Take 1 Univers 10 mg 3-11 11-11 tablet by ity of tablet 00:00: 00:00 mouth 2 [place] 00 :00 (two) Medical times Branch daily before breakfast and dinner. aspirin 81 2018-0 Yes 81mg Take 1 Unive rs mg chewable 8-30 tablet by ity of tablet 00:00: mouth [place] 00 daily. Medical Branch aspirin 81 2018-0 Yes 81mg Take 1 Unive rs mg chewable 8-30 tablet by ity of tablet 00:00: mouth [place] 00 daily. Medical Branch aspirin 81 2018-0 Yes 81mg Take 1 Unive rs mg chewable 8-30 tablet by ity of tablet 00:00: mouth [place] 00 daily. Medical Branch aspirin 81 2018-0 Yes 81mg Take 1 Unive rs mg chewable 8-30 tablet by ity of tablet 00:00: mouth [place] 00 daily. Medical Branch aspirin 81 2018-0 Yes 81mg Take 1 Unive rs mg chewable 8-30 tablet by ity of tablet 00:00: mouth [place] 00 daily. Medical Branch aspirin 81 2018-0 Yes 81mg Take 1 Unive rs mg chewable 8-30 tablet by ity of tablet 00:00: mouth [place] 00 daily. Medical Branch aspirin 81 2018-0 Yes 81mg Take 1 Unive rs mg chewable 8-30 tablet by ity of tablet 00:00: mouth [place] 00 daily. Medical Branch aspirin 81 2018-0 Yes 81mg Take 1 Unive rs mg chewable 8-30 tablet by ity of tablet 00:00: mouth [place] 00 daily. Medical Branch aspirin 81 2018-0 Yes 81mg Take 1 Unive rs mg chewable 8-30 tablet by ity of tablet 00:00: mouth [place] 00 daily. Medical Branch acetaminoph 2016- Yes 2{tbl} Take 2 Un tatyana en-codeine [...] 4-6). acetaminoph Yes 2{tbl} Take 2 Un [place] en-codeine 3-07 Tabs by ity of (TYLENOL 00:00: mouth [place] #3) 300-30 00 every 6 Medica l mg tablet (six) Branch hours as needed for Pain (scale 4-6). acetaminoph 2020- No 2{tbl} Take 2 U nivers en-codeine 3-07 12-28 Tabs by ity o f (TYLENOL 00:00: 00:00 mouth [place] #3) 300-30 00 :00 every 6 Medica l mg tablet (six) Branch hours as needed for Pain (scale 4-6). Immunizations Ordered Filled Immunization Date Status Comments [facility] e Immunization Name Name Influenza High Dose 2021-05-04 Completed Unive rsity of 00:00:00 [facility] [place] [facility] DTAP 2021-05-04 Completed University of 00:00:00 [facility] [place] [facility] Influenza High Dose 2021-05-04 Completed Unive rsity of 00:00:00 [facility] [place] [facility] DTAP 2021-05-04 Completed University of 00:00:00 [facility] [place] [facility] Influenza High Dose 2021-05-04 Completed Unive rsity of 00:00:00 [facility] [place] [facility] DTAP 2021-05-04 Completed University of 00:00:00 [facility] [place] [facility] Influenza High Dose 2021-05-04 Completed Unive rsity of 00:00:00 [facility] [place] [facility] DTAP 2021-05-04 Completed University of 00:00:00 [facility] [place] [facility] Influenza High Dose 2021-05-04 Completed Unive rsity of 00:00:00 [facility] [place] [facility] DTAP 2021-05-04 Completed University of 00:00:00 [facility] [place] [facility] Influenza High Dose 2021-05-04 Completed Unive rsity of 00:00:00 [facility] [place] [facility] DTAP 2021-05-04 Completed University of 00:00:00 [facility] [place] [facility] Influenza High Dose 2021-05-04 Completed Unive rsity of 00:00:00 [facility] [place] [facility] DTAP 2021-05-04 Completed University of 00:00:00 [facility] [place] [facility] Influenza High Dose 2021-05-04 Completed Unive rsity of 00:00:00 [facility] [place] [facility] DTAP 2021-05-04 Completed University of 00:00:00 [facility] [place] [facility] Influenza High Dose 2021-05-04 Completed Unive rsity of 00:00:00 [facility] [place] [facility] DTAP 2021-05-04 Completed University of 00:00:00 [facility] [place] [facility] SARS-COV-2 COVID-19 2021-04-28 Completed Unive rsity of PFIZER VACCINE 00:00:00 [facility] SARS-COV-2 COVID-19 2021-04-28 Completed Unive rsity of PFIZER VACCINE 00:00:00 [facility] SARS-COV-2 COVID-19 2021-04-28 Completed Unive rsity of PFIZER VACCINE 00:00:00 [facility] SARS-COV-2 COVID-19 2021-04-28 Completed Unive rsity of PFIZER VACCINE 00:00:00 [facility] SARS-COV-2 COVID-19 2021-04-28 Completed Unive rsity of PFIZER VACCINE 00:00:00 [facility] SARS-COV-2 COVID-19 2021-04-28 Completed Unive rsity of PFIZER VACCINE 00:00:00 [facility] SARS-COV-2 COVID-19 2021-04-28 Completed Unive rsity of PFIZER VACCINE 00:00:00 [facility] SARS-COV-2 COVID-19 2021-04-28 Completed Unive rsity of PFIZER VACCINE 00:00:00 [facility] SARS-COV-2 COVID-19 2021-04-28 Completed Unive rsity of PFIZER VACCINE 00:00:00 [facility] SARS-COV-2 COVID-19 2021-04-07 Completed Unive rsity of PFIZER VACCINE 00:00:00 [facility] SARS-COV-2 COVID-19 2021-04-07 Completed Unive rsity of PFIZER VACCINE 00:00:00 [facility] SARS-COV-2 COVID-19 2021-04-07 Completed Unive rsity of PFIZER VACCINE 00:00:00 [facility] SARS-COV-2 COVID-19 2021-04-07 Completed Unive rsity of PFIZER VACCINE 00:00:00 [facility] SARS-COV-2 COVID-19 2021-04-07 Completed Unive rsity of PFIZER VACCINE 00:00:00 [facility] SARS-COV-2 COVID-19 2021-04-07 Completed Unive rsity of PFIZER VACCINE 00:00:00 [facility] SARS-COV-2 COVID-19 2021-04-07 Completed Unive rsity of PFIZER VACCINE 00:00:00 [facility] SARS-COV-2 COVID-19 2021-04-07 Completed Unive rsity of PFIZER VACCINE 00:00:00 [facility] SARS-COV-2 COVID-19 2021-04-07 Completed Unive rsity of PFIZER VACCINE 00:00:00 [facility] Vital Signs Vital Name Observation Time Observation Value Comments Source Systolic blood 2021-08-17 11:30:00 134 mm[Hg] Univer sity of pressure [facility] [place] [facility] Diastolic blood 2021-08-17 11:30:00 75 mm[Hg] Unive rsity of pressure [facility] [place] [facility] Heart rate 2021-08-17 11:30:00 87 /min [facility] Respiratory rate 2021-08-17 11:30:00 16 /min [facility] [place] [facility] Oxygen saturation in 2021-08-17 11:30:00 97 /min [facility] Arterial blood by [facility] Pulse oximetry [place] Body temperature 2021-08-17 08:17:00 36.72 [place] Univ ersity of [facility] [place] [facility] Body height 2021-08-17 08:17:00 152.4 cm [facility] Body weight 2021-08-17 08:17:00 77.111 kg [facility] [place] [facility] BMI 2021-08-17 08:17:00 33.20 kg/m2 [facility] [place] [facility] Systolic blood 2021-08-13 19:35:00 179 mm[Hg] Univer sity of pressure [place] [facility] Diastolic blood 2021-08-13 19:35:00 89 mm[Hg] Unive rsity of pressure [place] [facility] Heart rate 2021-08-13 19:35:00 83 /min [facility] [place] [facility] Respiratory rate 2021-08-13 19:35:00 18 /min [facility] [place] [facility] Oxygen saturation in 2021-08-13 19:35:00 98 /min [facility] of Arterial blood by [place] [facility] Pulse oximetry Branch Body weight 2021-08-13 17:00:00 81.6 kg [facility] [place] [facility] BMI 2021-08-13 17:00:00 35.13 kg/m2 [facility] [place] [facility] Body temperature 2021-08-13 15:33:00 37 [place] [facility] [place] [facility] Systolic blood 2021-07-29 21:37:00 127 mm[Hg] Univer sity of pressure [place] [facility] Diastolic blood 2021-07-29 21:37:00 66 mm[Hg] Unive rsity of pressure [place] [facility] Oxygen saturation in 2021-07-29 21:37:00 100 /min University of Arterial blood by [facility] Pulse oximetry Branch Heart rate 2021-07-29 21:33:00 56 /min [facility] [place] [facility] Body temperature 2021-07-29 21:33:00 35.94 [place] [facility] [place] [facility] Respiratory rate 2021-07-29 21:33:00 16 /min [facility] [place] [facility] Body height 2021-07-27 05:46:00 152.4 cm [facility] Body weight 2021-07-26 17:47:00 81.647 kg [facility] BMI 2021-07-26 17:47:00 35.15 kg/m2 [facility] Systolic blood 2021-06-09 16:51:00 108 mm[Hg] [facility] Diastolic blood 2021-06-09 16:51:00 83 mm[Hg] [facility] Heart rate 2021-06-09 16:51:00 88 /min [facility] Body temperature 2021-06-09 16:51:00 37 [place] [facility] Respiratory rate 2021-06-09 16:51:00 20 /min [facility] Body height 2021-06-09 16:51:00 152.4 cm [facility] Body weight 2021-06-09 16:51:00 79.062 kg [facility] BMI 2021-06-09 16:51:00 34.04 kg/m2 [facility] Oxygen saturation in 2021-06-09 16:51:00 97 /min [facility] Arterial blood by [facility] Pulse oximetry Branch Heart Rate 2019-03-25 20:31:00 [facility] Respitory Rate 2019-03-25 20:31:00 Amie Gotti Height 2019-03-25 20:31:00 147.32 cm [facility] Weight 2019-03-25 20:31:00 [facility] BMI Calculated 2019-03-25 20:31:00 Amie Gotti Systolic (mm Hg) 2019-03-25 20:31:00 Osito Zambrano Diastolic (mm Hg) 2019-03-25 20:31:00 Guilherme Zambrano Procedures Procedure Date / Time Performing Clinician Source Performed CT CHEST PULMONARY 2021-08-17 10:41:03 Jason Cantu [facility] ANGIOGRAM Medical Branch LIPASE 2021-08-17 08:51:00 Jason Cantu [facility] TROPONIN I 2021-08-17 08:51:00 Jason Cantu [facility] COMP. METABOLIC PANEL 2021-08-17 08:51:00 Jason Cantu [facility] ([id number]) [facility] CBC WITH DIFF 2021-08-17 08:51:00 Jason Cantu [facility] COVID-19 (ID NOW RAPID 2021-08-17 08:51:00 Jason Cantu [facility] TESTING) Medical Branch NOTICE OF PRIVACY 2021-08-17 08:08:15 Doctor Marilu, [facility] PRACTICES [facility] CONSENT/REFUSAL FOR 2021-08-17 08:02:31 Doctor Marilu [facility] DIAGNOSIS AND TREATMENT [facility] AUTHORIZATION FOR RELEASE 2021-08-16 06:01:00 Doctor Marilu, [facility] EXTERNAL PROVIDER RECORDS 2021-08-12 06:01:00 Doctor Marilu [facility] BASIC METABOLIC PANEL 2021-07-29 20:49:00 [facility] (NA, K, CL, CO2, GLUCOSE, Medica l Branch BUN, CREATININE, CA) POCT GLUCOSE (AUTOMATED) 2021-07-29 19:37:00 Heber Santo [facility] POCT GLUCOSE (AUTOMATED) 2021-07-29 18:11:00 Heber Santo Uni [facility] POCT GLUCOSE (AUTOMATED) 2021-07-29 16:00:00 Heber Santo Uni [facility] POCT GLUCOSE (AUTOMATED) 2021-07-29 14:21:00 Heber Santo Uni [facility] MAGNESIUM 2021-07-29 14:13:00 [facility] BASIC METABOLIC PANEL 2021-07-29 14:13:00 [facility] (NA, K, CL, CO2, GLUCOSE, Medica l Branch BUN, CREATININE, CA) POCT GLUCOSE (AUTOMATED) 2021-07-29 14:07:00 Heber Santo Uni [facility] POCT GLUCOSE (AUTOMATED) 2021-07-29 01:15:00 [facility] 2021-07-28 23:22:00 Heber Santo Uni [facility] CAROTID DUPLEX BILATERAL 2021-07-28 21:03:18 Clarence Silva [facility] - BY VASCULAR LAB [facility] POCT GLUCOSE (AUTOMATED) 2021-07-28 18:50:00 SantoHeber orozco [facility] POCT GLUCOSE (AUTOMATED) 2021-07-28 17:36:00 SantoHeber orozco [facility] POCT GLUCOSE (AUTOMATED) 2021-07-28 16:52:00 SantoHeber [facility] POCT GLUCOSE (AUTOMATED) 2021-07-28 14:37:00 Gal Heber Cassidy [facility] MAGNESIUM 2021-07-28 11:27:00 Marquez [facility] BASIC METABOLIC PANEL 2021-07-28 11:27:00 [facility] (NA, K, CL, CO2, GLUCOSE, Medica l Branch BUN, CREATININE, CA) CBC WITH DIFF 2021-07-28 11:27:00 [facility] POCT GLUCOSE (AUTOMATED) 2021-07-28 00:37:00 Gal Heber Cassidy [facility] MR BRAIN W WO CONTRAST 2021-07-27 21:39:37 [facility] MR ORBIT W WO CONTRAST 2021-07-27 21:37:21 [facility] POCT GLUCOSE (AUTOMATED) 2021-07-27 17:58:00 GalHeber [facility] TRANSTHORACIC ECHO (TTE) 2021-07-27 16:30:00 Clarence Silva [facility] COMPLETE W/ CONTRAST [facility] POCT GLUCOSE (AUTOMATED) 2021-07-27 14:29:00 GalHeber [facility] TROPONIN I 2021-07-27 11:23:00 Alma [facility] HEPATIC FUNCTION PANEL 2021-07-27 11:23:00 [facility] ([id number]) (ALB,T.PRO,BILI Medical Branch T,BU/BC,ALT,AST,ALK PHOS) BASIC METABOLIC PANEL 2021-07-27 11:23:00 [facility] (NA, K, CL, CO2, GLUCOSE, Medica l Branch BUN, CREATININE, CA) CBC WITH DIFF 2021-07-27 11:23:00 Ricardo [facility] POCT GLUCOSE (AUTOMATED) 2021-07-27 05:21:00 Heber Santo [facility] US ABDOMEN LIMITED 2021-07-27 02:53:00 Clarence Silva [facility] URINE DRUG (IMMUNOASSAY) 2021-07-27 01:45:00 Clarence Silva [facility] SCREEN PNEUMOCOCCAL ANTIGEN 2021-07-27 01:45:[address] [facility] BLOOD CULTURE SCREEN 2021-07-27 01:44:[address] [facility] LACTATE DEHYDROGENASE 2021-07-27 01:44:00 Ricardo [facility] TROPONIN I 2021-07-27 01:44:00 Ricardo [facility] PROTHROMBIN TIME / INR 2021-07-27 01:44:00 Clarence Silva [facility] D-DIMER 2021-07-27 01:44:00 Ricardo [facility] ACTIVATED PARTIAL 2021-07-27 01:44:00 Ricardo [facility] THRFormerly [facility] EXTRA TUBE LAV 2021-07-27 01:44:00 Gal [facility] PROCALCITONIN 2021-07-27 01:44:00 Ricardo [facility] XR CHEST 1 VW 2021-07-27 01:15:25 Ricardo [facility] CT HEAD WO CONTRAST 2021-07-27 00:18:19 Clarence iSlva [facility] COVID-19 (ID NOW RAPID 2021-07-26 21:03:00 Leslie Larkin [facility] TESTING) Medical Branch LAB ONLY COVID 2021-07-26 21:03:00 Leslie Larkin [facility] INTERPRETATION [facility] Branch URINALYSIS 2021-07-26 19:11:00 Leslie Larkin [facility] LEGIONELLA URINARY 2021-07-26 19:11:00 Clarence Silva [facility] ANTIGEN TST [facility] URINE CULTURE 2021-07-26 19:11:00 Leslie Larkin [facility] LIPASE 2021-07-26 19:00:00 Leslie Larkin [facility] MAGNESIUM 2021-07-26 19:00:00 Clarence Silva [facility] FERRITIN SERUM 2021-07-26 19:00:00 Clarence Silva [place] [facility] [facility] VITAMIN B12, LEVEL 2021-07-26 19:00:00 Clarence Silva [facility] C-REACTIVE PROTEIN 2021-07-26 19:00:00 Clarence Silva [facility] TROPONIN I 2021-07-26 19:00:00 Leslie Larkin [facility] FREE T4 2021-07-26 19:00:00 Leslie Larkin [facility] THYROID STIMULATING 2021-07-26 19:00:00 Leslie Larkin [facility] HORMONE [facility] Branch COMP. METABOLIC PANEL 2021-07-26 19:00:00 Leslie Larkin [facility] ([id number]) [facility] LIPID PANEL ([id number])(TOTAL 2021-07-26 19:00:00 Clarence Silva [facility] CHOLESTEROL, [facility] TRIGLYCERIDES, HDL) ETHANOL 2021-07-26 19:00:00 Clarence Silva [facility] CBC WITH DIFF 2021-07-26 19:00:00 Leslie Larkin [facility] GLYCOSYLATED HEMOGLOBIN 2021-07-26 19:00:00 Leslie Larkin [facility] (A1C) [facility] N-TERMINAL PRO-BNP 2021-07-26 19:00:00 Leslie Larkin [facility] FREE T3 2021-07-26 19:00:00 Leslie Larkin [facility] Branch CONSENT/REFUSAL FOR 2021-07-26 17:46:46 Doctor Zackery Michel [facility] DIAGNOSIS AND TREATMENT [facility] BI SCREENING 2021-07-01 15:02:00 [address] [place] TOMOSYNTHESIS BILATERAL Medical Branch NOTICE OF PRIVACY 2021-07-01 14:37:14 Doctor Marilu, Sonia [facility] PRACTICES [facility] CONSENT/REFUSAL FOR 2021-07-01 14:36:59 Doctor Marilu, Zackery [facility] DIAGNOSIS AND TREATMENT [facility] ASSIGNMENT OF BENEFITS 2021-07-01 14:36:43 [facility] Appendectomy [facility] Encounters Start End Encounter Admission Attending Care Care Encounter Source Date/Time Date/Time Type Type Clinicians Facility Department ID 2021-08-17 2021-08-17 Emergency X [facility] ERT [id number] Univers 02:20:00 06:03:00 WAKILI ity [facility] 2021-08-17 2021-08-17 Emergency [facility] [id number] Univers 02:20:00 06:03:00 Jason GALEAS 350.1.13.10 ity of [place] 4.2.7.2.686 [facility] [id number] [facility] 084 Branch 2021-08-16 2021-08-16 Orders Doctor ADLER [id number] Univers 00:00:00 00:00:00 Only Unassigned, KRIS 350.1.13.10 ity of [place] [facility] 4.2.7.2.686 Duncan [id number] [facility] 009 Branch 2021-08-13 2021-08-13 [facility] [id number] Univers 09:33:00 13:48:00 MARGOT ity [facility] 2021-08-13 2021-08-13 Emergency David, TRAUMA [id number] Univers 09:33:00 13:48:00 Margot [facility] 350.1.13.10 [place] [id number] [facility] 014 Branch 2021-08-12 2021-08-12 Orders Doctor NAYELY [id number] Univers 00:00:00 00:00:00 Only Unassigned, KRIS 350.1.13.10 ity of [place] [facility] 4.2.7.2.686 [place] as [id number] [facility] 009 Branch 2021-07-26 2021-07-29 Inpatient X GAL [facility] [id number] Univers 11:48:00 18:19:00 HEBER campos [facility] 2021-07-26 2021-07-29 [facility] Leslie Larkin [id number] Univers 11:48:00 18:19:00 Encounter Heber Santo Suzettelasha PONCE 350.1 .13.10 ity of [facility] 4.2.7.2.686 [place] as [id number] [facility] 099 Branch 2021-07-28 2021-07-28 [facility] [id number] Univers 10:30:00 10:30:[address] A[address] [id number] [facility] 2021-07-28 2021-07-28 [facility] [id number] Univers [facility]:30[facility]-07-14 2021-07-14 [facility] [id number] Univers 11:00:00 11:00:[address] [id number] ity [facility] 2021-07-14 2021-07-14 [facility] [id number] Univers 11:00:00 11:00:00 AVE [facility] 2021-07-01 2021-07-01 Outpatient [facility] [id number] Univers 08:39:06 [facility]59[facility] 2021-07-01 2021-07-01 [facility] [id number] Univers 08:39:06 23:59:[address] GALEAS 350.1.13.10 ity [place] [id number] [address] 2021-06-15 2021-06-15 Telephone [facility] [id number] Univers 00:00:00 00:00:00 Ave V[place]ARES 350.1.13.10 it y of [place] 4.2.7.2.686 [place] as JOSEPH?BLEA [id number] [address] OFFICE [facility] 2021-06-09 2021-06-09 Outpatient [facility] [id number] [facility] 11:00:00 11:41:[address] campos [facility] 2021-06-09 2021-06-09 Office [facility] [id number] [facility] 10:37:35 11:41:[address] [place] 350.1.13.10 it y of [facility] 4.2.7.2.686 [place] as JOSEPH?BLEA [id number] [address] OFFICE [facility] 2019-03-25 2019-03-26 Outpatient nullFlavo MNA [id number] Memoria 20:00:00 04:59:59 r Neurology 00 l Lily Zambrano Results Test Description Test Time Test Comments Results Result Comments Source TROPONIN I 2021-08-17 09:49:15 Test Item Value Reference Range Interpretation Comme nts TROPONIN I (test code = 0.017 ng/mL See_Comment [Au tomated message] The [id number]) system which ge nerated this result tra nsmitted reference range : <=0.034. The reference r rigo was not used to int erpret this result as normal/abnormal . CLARI (test code = CLARI) Reference (Normal) Range (defined by the 99th percentile reference limit): <= 0.034 ng/mL Note: Cardiac troponin begins to rise 3-4 hours after the onset of ischemia. Repeat in 4-6 hours if the sample was drawn within 3-4 hours of the onset of the symptom and found normal. Diagnosis of myocardial injury is made with acute changes in cTn concentrations with at least one serial sample above the 99th percentile upper reference limit (URL), taken together with the patient's clinical presentation. Biotin has been reported to cause a negative bias, interpret results relative to patient's use of biotin. Lab Interpretation Normal (test code = 13603-5) [facility]. METABOLIC PANEL ([id number])2021-08-17 09:38:11 Test Item Value Reference Range Interpretation Comments NA (test code = 129 mmol/L 135-145 L 8895903605) K (test code = 4.4 mmol/L 3.5-5.0 2580491058) CL (test code = 94 mmol/L 98-108 L 5682838484) CO2 TOTAL (test code = 25 mmol/L 23-31 7631873692) AGAP (test code = 2-16 6245164605) BUN (test code = 23 mg/dL 7-23 9502384248) GLUCOSE (test code = 228 mg/dL 70-110 H 0249435843) CREATININE (test code = 1.26 mg/dL 0.50-1.04 H 8553934940) TOTAL BILI (test code = 0.8 mg/dL 0.1-1.7 6826326951) CALCIUM (test code = 9.4 mg/dL 8.6-10.6 8830057804) T PROTEIN (test code = 7.4 g/dL 6.3-8.2 3951198687) ALBUMIN (test code = 3.7 g/dL 3.5-5.0 2741387862) ALK PHOS (test code = 249 U/L 34-122 H 0978119284) ALTv (test code = 18 U/L 5-35 1742-6) AST(SGOT) (test code = 35 U/L 13-40 2350315321) eGFR (test code = mL/min/1.73m2 7379469978) CLARI (test code = CLARI) Association of Glomerular Filtration Rate (GFR) and Staging of Kidney Disease* + --+ --+ ------+| GFR (mL/min/1.73 m2) ?| With Kidney Damage ?| ?Without Kidney Damage+ --------+ --------+ +| ?>90 ?| ?Stage one ?| ? Normal ?+ ---+ ---+ -------+| ?60-89 ?| ?Stage two ?| ? Decreased GFR ? + --+ --+ ------+| ?30-59 ?| ?Stage three ?| ? Stage three ? + --+ --+ ------+| ?15-29 ?| ?Stage four ? | ? Stage four ?+ ---+ ---+ -------+| ?<15 (or dialysis) ? ?| ?Stage five ? | ? Stage five ?+ ---+ ---+ -------+ *Each stage assumes the associated GFR level has been in effect for at least three months. ?Stages 1 to 5, with or without kidney disease, indicate chronic kidney disease. Notes: Determination of stages one and two (with eGFR >59mL/min/1.73 m2) requires estimation of kidney damage for at least three months as defined by structural or functional abnormalities of the kidney, manifested by either:Pathological abnormalities or Markers of kidney damage (including abnormalities in the composition of the blood or urine or abnormalities in imaging tests). Lab Interpretation Abnormal (test code = 83953-6) [facility]35 Test Item Value Reference Range Interpretation Comments LIPASE (test code = 6466099569) 142 U/L 0-220 Lab Interpretation (test code = Normal 14663-9) [facility] WITH [id number] 09:16:28 Test Item Value Reference Range Interpretation Comments WBC (test code = See_Comment [Automated 8037-2) message] The sy stem which generated this result transmitted reference range : 4.30 - 11.10 10*3/?L. The reference range was not used to interpret this result as normal/abnormal . RBC (test code = See_Comment [Automated 239-8) message] The sy stem which generated this result transmitted reference range : 3.93 - 5.25 10*6/?L. The reference range was not used to interpret this result as normal/abnormal . HGB (test code = 12.5 g/dL 11.6-15.0 718-7) HCT (test code = 37.4 % 35.7-45.2 4544-3) MCV (test code = 79.1 fL 80.6-95.5 L 787-2) MCH (test code = 26.4 pg 25.9-32.8 785-6) MCHC (test code = 33.4 g/dL 31.6-35.1 786-4) RDW-SD (test code = 37.8 fL 39.0-49.9 L 65831-5) RDW-CV (test code = 13.2 % 12.0-15.5 788-0) PLT (test code = See_Comment H [Automated 777-3) message] The sy stem which generated this result transmitted reference range : 166 - 358 10*3/ ?L. The reference r rigo was not used to interpret this result as normal/abnormal . MPV (test code = 9.7 fL 9.5-12.9 94238-3) NRBC/100 WBC (test See_Comment [Automat ed code = 8983062176) message] The system which generated this result transmitted reference range : 0.0 - 10.0 /100 WBCs. The refer ence range was not u sed to interpret th is result as normal/abnormal . NRBC x10^3 (test code <0.01 See_Comment [Auto mated = 7523938542) message] The s ystem which generated this result transmitted reference range : 10*3/?L. The reference range was not used to interpret this result as normal/abnormal . GRAN MAT (NEUT) % 65.3 % (test code = 770-8) IMM GRAN % (test code 0.30 % = 2329725276) LYMPH % (test code = 24.4 % 736-9) MONO % (test code = 6.9 % 5905-5) EOS % (test code = 1.8 % 713-8) BASO % (test code = 1.3 % 706-2) GRAN MAT x10^3(ANC) 6.79 10*3/uL 1.88-7.09 (test code = 7072660269) IMM GRAN x10^3 (test 0.03 10*3/uL 0.00-0.06 code = 0680309852) LYMPH x10^3 (test code 2.54 10*3/uL 1.32-3.29 = 731-0) MONO x10^3 (test code 0.72 10*3/uL 0.33-0.92 = 742-7) EOS x10^3 (test code = 0.19 10*3/uL 0.03-0.39 711-2) BASO x10^3 (test code 0.13 10*3/uL 0.01-0.07 H = 704-7) Lab Interpretation Abnormal (test code = 23583-6) [facility] METABOLIC PANEL (NA, K, CL, CO2, GLUCOSE, BUN, CREATININE, CA)2021-07-29 21:22:13 Test Item Value Reference Range Interpretation Comments NA (test code = 135 mmol/L 135-145 8612348417) K (test code = 4.1 mmol/L 3.5-5.0 0206947824) CL (test code = 101 mmol/L 98-108 8528498067) CO2 TOTAL (test code = 29 mmol/L 23-31 9602517264) AGAP (test code = 2-16 6387912389) BUN (test code = 20 mg/dL 7-23 9601379822) GLUCOSE (test code = 208 mg/dL 70-110 H 3447807543) CREATININE (test code = 1.39 mg/dL 0.50-1.04 H 5728153182) CALCIUM (test code = 8.1 mg/dL 8.6-10.6 L 1000313559) eGFR (test code = mL/min/1.73m2 5520084286) CLARI (test code = CLARI) Association of Glomerular Filtration Rate (GFR) and Staging of Kidney Disease* + --+ --+ ------+| GFR (mL/min/1.73 m2) ?| With Kidney Damage ?| ?Without Kidney Damage+ --------+ --------+ +| ?>90 ?| ?Stage one ?| ? Normal ?+ ---+ ---+ -------+| ?60-89 ?| ?Stage two ?| ? Decreased GFR ? + --+ --+ ------+| ?30-59 ?| ?Stage three ?| ? Stage three ? + --+ --+ ------+| ?15-29 ?| ?Stage four ? | ? Stage four ?+ ---+ ---+ -------+| ?<15 (or dialysis) ? ?| ?Stage five ? | ? Stage five ?+ ---+ ---+ -------+ *Each stage assumes the associated GFR level has been in effect for at least three months. ?Stages 1 to 5, with or without kidney disease, indicate chronic kidney disease. Notes: Determination of stages one and two (with eGFR >59mL/min/1.73 m2) requires estimation of kidney damage for at least three months as defined by structural or functional abnormalities of the kidney, manifested by either:Pathological abnormalities or Markers of kidney damage (including abnormalities in the composition of the blood or urine or abnormalities in imaging tests). Lab Interpretation Abnormal (test code = 06382-4) [facility] GLUCOSE (AUTOMATED)2021-07-29 19:42:24 Test Item Value Reference Range Interpretation Comments POCT GLU (test code = 4587451812) 305 mg/dL 70-110 H Lab Interpretation (test code = Abnormal 03889-0) [facility] GLUCOSE (AUTOMATED)2021-07-29 18:15:14 Test Item Value Reference Range Interpretation Comments POCT GLU (test code = 3277320798) 139 mg/dL 70-110 H Lab Interpretation (test code = Abnormal 12929-3) [facility] GLUCOSE (AUTOMATED)2021-07-29 16:02:50 Test Item Value Reference Range Interpretation Comments POCT GLU (test code = 1523395980) 150 mg/dL 70-110 H Lab Interpretation (test code = Abnormal 81339-8) [facility] (NA, K, CL, CO2, GLUCOSE, BUN, CREATININE, CA)2021-07-29 14:44:49 Test Item Value Reference Range Interpretation Comments NA (test code = 137 mmol/L 135-145 1865250836) K (test code = 3.7 mmol/L 3.5-5.0 3565708492) CL (test code = 100 mmol/L 98-108 3990229769) CO2 TOTAL (test code = 32 mmol/L 23-31 H 2846075826) AGAP (test code = 2-16 2716554071) BUN (test code = 22 mg/dL 7-23 0570325200) GLUCOSE (test code = 70 mg/dL 70-110 9842185780) CREATININE (test code = 1.44 mg/dL 0.50-1.04 H 5514348306) CALCIUM (test code = 8.4 mg/dL 8.6-10.6 L 7190885700) eGFR (test code = mL/min/1.73m2 9498637922) CLARI (test code = CLARI) Association of Glomerular Filtration Rate (GFR) and Staging of Kidney Disease* + --+ --+ ------+| GFR (mL/min/1.73 m2) ?| With Kidney Damage ?| ?Without Kidney Damage+ --------+ --------+ +| ?>90 ?| ?Stage one ?| ? Normal ?+ ---+ ---+ -------+| ?60-89 ?| ?Stage two ?| ? Decreased GFR ? + --+ --+ ------+| ?30-59 ?| ?Stage three ?| ? Stage three ? + --+ --+ ------+| ?15-29 ?| ?Stage four ? | ? Stage four ?+ ---+ ---+ -------+| ?<15 (or dialysis) ? ?| ?Stage five ? | ? Stage five ?+ ---+ ---+ -------+ *Each stage assumes the associated GFR level has been in effect for at least three months. ?Stages 1 to 5, with or without kidney disease, indicate chronic kidney disease. Notes: Determination of stages one and two (with eGFR >59mL/min/1.73 m2) requires estimation of kidney damage for at least three months as defined by structural or functional abnormalities of the kidney, manifested by either:Pathological abnormalities or Markers of kidney damage (including abnormalities in the composition of the blood or urine or abnormalities in imaging tests). Lab Interpretation Abnormal (test code = 79764-7) [facility] 14:44:49 Test Item Value Reference Range Interpretation Comments MAGNESIUM (test code = 9244435916) 1.8 mg/dL 1.7-2.4 Lab Interpretation (test code = Normal 44392-5) [facility]2021-07-29 14:23:37 Test Item Value Reference Range Interpretation Comments POCT GLU (test code = 1082282349) 68 mg/dL 70-110 L Lab Interpretation (test code = Abnormal 58392-8) [facility] GLUCOSE (AUTOMATED)2021-07-29 14:09:04 Test Item Value Reference Range Interpretation Comments POCT GLU (test code = 3793059564) 69 mg/dL 70-110 L Lab Interpretation (test code = Abnormal 09665-9) [facility] GLUCOSE (AUTOMATED)2021-07-29 01:16:49 Test Item Value Reference Range Interpretation Comments POCT GLU (test code = 0300098011) 103 mg/dL 70-110 Lab Interpretation (test code = Normal 74320-3) [facility] GLUCOSE (AUTOMATED)2021-07-28 23:24:51 Test Item Value Reference Range Interpretation Comments POCT GLU (test code = 7511655479) 134 mg/dL 70-110 H Lab Interpretation (test code = Abnormal 62939-7) [facility] GLUCOSE (AUTOMATED)2021-07-28 18:51:28 Test Item Value Reference Range Interpretation Comments POCT GLU (test code = 0293546096) 276 mg/dL 70-110 H Lab Interpretation (test code = Abnormal 78722-6) [facility] [facility]21-07-28 17:47:39 Test Item Value Reference Range Interpretation Comments POCT GLU (test code = 1382643452) 305 mg/dL 70-110 H Lab Interpretation (test code = Abnormal 11782-0) [facility] GLUCOSE (AUTOMATED)2021-07-28 16:53:19 Test Item Value Reference Range Interpretation Comments POCT GLU (test code = 6900986802) 276 mg/dL 70-110 H Lab Interpretation (test code = Abnormal 21566-1) [facility] GLUCOSE (AUTOMATED)2021-07-28 14:41:50 Test Item Value Reference Range Interpretation Comments POCT GLU (test code = 8731788340) 235 mg/dL 70-110 H Lab Interpretation (test code = Abnormal 19705-2) [facility]09:27 Test Item Value Reference Range Interpretation Comments MAGNESIUM (test code = 4080341858) 2.0 mg/dL 1.7-2.4 Lab Interpretation (test code = Normal 66227-1) [facility] (NA, K, CL, CO2, GLUCOSE, BUN, CREATININE, CA)2021-07-28 12:34:26 Test Item Value Reference Range Interpretation Comments NA (test code = 135 mmol/L 135-145 9899818300) K (test code = 4.1 mmol/L 3.5-5.0 5534136188) CL (test code = 98 mmol/L 98-108 9640605458) CO2 TOTAL (test code = 32 mmol/L 23-31 H 4653179196) AGAP (test code = 2-16 4936198045) BUN (test code = 18 mg/dL 7-23 0206323992) GLUCOSE (test code = 229 mg/dL 70-110 H 7911398223) CREATININE (test code = 1.34 mg/dL 0.50-1.04 H 5589998207) CALCIUM (test code = 8.5 mg/dL 8.6-10.6 L 1414192528) eGFR (test code = mL/min/1.73m2 6317865898) CLARI (test code = CLARI) Association of Glomerular Filtration Rate (GFR) and Staging of Kidney Disease* + --+ --+ ------+| GFR (mL/min/1.73 m2) ?| With Kidney Damage ?| ?Without Kidney Damage+ --------+ --------+ +| ?>90 ?| ?Stage one ?| ? Normal ?+ ---+ ---+ -------+| ?60-89 ?| ?Stage two ?| ? Decreased GFR ? + --+ --+ ------+| ?30-59 ?| ?Stage three ?| ? Stage three ? + --+ --+ ------+| ?15-29 ?| ?Stage four ? | ? Stage four ?+ ---+ ---+ -------+| ?<15 (or dialysis) ? ?| ?Stage five ? | ? Stage five ?+ ---+ ---+ -------+ *Each stage assumes the associated GFR level has been in effect for at least three months. ?Stages 1 to 5, with or without kidney disease, indicate chronic kidney disease. Notes: Determination of stages one and two (with eGFR >59mL/min/1.73 m2) requires estimation of kidney damage for at least three months as defined by structural or functional abnormalities of the kidney, manifested by either:Pathological abnormalities or Markers of kidney damage (including abnormalities in the composition of the blood or urine or abnormalities in imaging tests). Lab Interpretation Abnormal (test code = 69991-4) [facility] WITH [id number] 11:44:23 Test Item Value Reference Range Interpretation Comments WBC (test code = See_Comment [Automated 6690-2) message] The sy stem which generated this result transmitted reference range : 4.30 - 11.10 10*3/?L. The reference range was not used to interpret this result as normal/abnormal . RBC (test code = See_Comment L [Automated 789-8) message] The sy stem which generated this result transmitted reference range : 3.93 - 5.25 10*6/?L. The reference range was not used to interpret this result as normal/abnormal . HGB (test code = 10.0 g/dL 11.6-15.0 L 718-7) HCT (test code = 31.6 % 35.7-45.2 L 4544-3) MCV (test code = 84.3 fL 80.6-95.5 787-2) MCH (test code = 26.7 pg 25.9-32.8 785-6) MCHC (test code = 31.6 g/dL 31.6-35.1 786-4) RDW-SD (test code = 41.9 fL 39.0-49.9 89792-0) RDW-CV (test code = 13.6 % 12.0-15.5 788-0) PLT (test code = See_Comment H [Automated 777-3) message] The sy stem which generated this result transmitted reference range : 166 - 358 10*3/ ?L. The reference r rigo was not used to interpret this result as normal/abnormal . MPV (test code = 8.8 fL 9.5-12.9 L 31817-9) NRBC/100 WBC (test See_Comment [Automat ed code = 1863551530) message] The system which generated this result transmitted reference range : 0.0 - 10.0 /100 WBCs. The refer ence range was not u sed to interpret th is result as normal/abnormal . NRBC x10^3 (test code <0.01 See_Comment [Auto mated = 7775696913) message] The s ystem which generated this result transmitted reference range : 10*3/?L. The reference range was not used to interpret this result as normal/abnormal . GRAN MAT (NEUT) % 64.4 % (test code = 770-8) IMM GRAN % (test code 0.40 % = 4450464887) LYMPH % (test code = 26.5 % 736-9) MONO % (test code = 5.2 % 5905-5) EOS % (test code = 2.8 % 713-8) BASO % (test code = 0.7 % 706-2) GRAN MAT x10^3(ANC) 6.11 10*3/uL 1.88-7.09 (test code = 6319806476) IMM GRAN x10^3 (test 0.04 10*3/uL 0.00-0.06 code = 9995647049) LYMPH x10^3 (test code 2.52 10*3/uL 1.32-3.29 = 731-0) MONO x10^3 (test code 0.49 10*3/uL 0.33-0.92 = 742-7) EOS x10^3 (test code = 0.27 10*3/uL 0.03-0.39 711-2) BASO x10^3 (test code 0.07 10*3/uL 0.01-0.07 = 704-7) Lab Interpretation Abnormal (test code = 86175-0) [facility] GLUCOSE (AUTOMATED)2021-07-28 00:38:01 Test Item Value Reference Range Interpretation Comments POCT GLU (test code = 1814841517) 210 mg/dL 70-110 H Lab Interpretation (test code = Abnormal 28274-2) [facility] GLUCOSE (AUTOMATED)2021-07-27 18:01:28 Test Item Value Reference Range Interpretation Comments POCT GLU (test code = 2008446932) 188 mg/dL 70-110 H Lab Interpretation (test code = Abnormal 51769-3) [facility] [id number] 17:37:08 Test Item Value Reference Range Interpretation Comments CRP (test code = 7730637815) 2.7 mg/dL <0.8 H Lab Interpretation (test code = Abnormal 40005-3) [facility]2021-07-27 14:36:47 Test Item Value Reference Range Interpretation Comments POCT GLU (test code = 7777381987) 151 mg/dL 70-110 H Lab Interpretation (test code = Abnormal 45774-0) [facility]TR[facility] [id number] 13:02:47 Test Item Value Reference Interpretation Comments Range TROPONIN I (test 0.414 ng/mL See_Comment H [Automated code = 9227551164) message] The system which generated this result transmitted reference range : <=0.034. The reference range was not used to interpret this result as normal/abnormal . CLARI (test code = Reference (Normal) CLARI) Range (defined by the 99th percentile reference limit): <= 0.034 ng/mL Note: Cardiac troponin begins to rise 3-4 hours after the onset of ischemia. Repeat in 4-6 hours if the sample was drawn within 3-4 hours of the onset of the symptom and found normal. Diagnosis of myocardial injury is made with acute changes in cTn concentrations with at least one serial sample above the 99th percentile upper reference limit (URL), taken together with the patient's clinical presentation. Biotin has been reported to cause a negative bias, interpret results relative to patient's use of biotin. Lab Interpretation Abnormal (test code = 09742-2) [facility] Metabolic Panel (NA, K, CL, CO2, GLUCOSE, BUN, CREATININE, CA)2021-07-27 12:44:03 Test Item Value Reference Range Interpretation Comments NA (test code = 134 mmol/L 135-145 L 3225515089) K (test code = 4.2 mmol/L 3.5-5.0 7993048779) CL (test code = 101 mmol/L 98-108 3603932460) CO2 TOTAL (test code = 28 mmol/L 23-31 7151603968) AGAP (test code = 2-16 0064144380) BUN (test code = 21 mg/dL 7-23 4748595427) GLUCOSE (test code = 159 mg/dL 70-110 H 8883991785) CREATININE (test code = 1.02 mg/dL 0.50-1.04 2894784195) CALCIUM (test code = 8.5 mg/dL 8.6-10.6 L 8120885939) eGFR (test code = mL/min/1.73m2 9477825001) CLARI (test code = CLARI) Association of Glomerular Filtration Rate (GFR) and Staging of Kidney Disease* + --+ --+ ------+| GFR (mL/min/1.73 m2) ?| With Kidney Damage ?| ?Without Kidney Damage+ --------+ --------+ +| ?>90 ?| ?Stage one ?| ? Normal ?+ ---+ ---+ -------+| ?60-89 ?| ?Stage two ?| ? Decreased GFR ? + --+ --+ ------+| ?30-59 ?| ?Stage three ?| ? Stage three ? + --+ --+ ------+| ?15-29 ?| ?Stage four ? | ? Stage four ?+ ---+ ---+ -------+| ?<15 (or dialysis) ? ?| ?Stage five ? | ? Stage five ?+ ---+ ---+ -------+ *Each stage assumes the associated GFR level has been in effect for at least three months. ?Stages 1 to 5, with or without kidney disease, indicate chronic kidney disease. Notes: Determination of stages one and two (with eGFR >59mL/min/1.73 m2) requires estimation of kidney damage for at least three months as defined by structural or functional abnormalities of the kidney, manifested by either:Pathological abnormalities or Markers of kidney damage (including abnormalities in the composition of the blood or urine or abnormalities in imaging tests). Lab Interpretation Abnormal (test code = 60927-3) [facility]396[facility] (ALB,T.PRO,BILI T,BU/BC,ALT,AST,ALK PHOS)2021-07-27 12:44:03 Test Item Value Reference Range Interpretation Comments TOTAL BILI (test code = 1401490226) 0.5 mg/dL 0.1-1.1 BILI UNCON (test code = 1407833718) 0.2 mg/dL 0.1-1.1 BILI CONJ (test code = 2872364114) 0.0 mg/dL 0.0-0.3 T PROTEIN (test code = 9987794894) 6.4 g/dL 6.3-8.2 ALBUMIN (test code = 1970518055) 2.8 g/dL 3.5-5.0 L ALK PHOS (test code = 9233353998) 891 U/L 34-122 H ALTv (test code = 1742-6) 29 U/L 5-35 AST(SGOT) (test code = 2649851806) 36 U/L 13-40 Lab Interpretation (test code = Abnormal 73873-6) [facility] with [id number] 11:55:37 Test Item Value Reference Range Interpretation Comments WBC (test code = See_Comment [Automated 6690-2) message] The sy stem which generated this result transmitted reference range : 4.30 - 11.10 10*3/?L. The reference range was not used to interpret this result as normal/abnormal . RBC (test code = See_Comment L [Automated 789-8) message] The sy stem which generated this result transmitted reference range : 3.93 - 5.25 10*6/?L. The reference range was not used to interpret this result as normal/abnormal . HGB (test code = 9.2 g/dL 11.6-15.0 L 718-7) HCT (test code = 28.7 % 35.7-45.2 L 4544-3) MCV (test code = 84.2 fL 80.6-95.5 787-2) MCH (test code = 27.0 pg 25.9-32.8 785-6) MCHC (test code = 32.1 g/dL 31.6-35.1 786-4) RDW-SD (test code = 42.1 fL 39.0-49.9 69219-5) RDW-CV (test code = 13.7 % 12.0-15.5 788-0) PLT (test code = See_Comment H [Automated 777-3) message] The sy stem which generated this result transmitted reference range : 166 - 358 10*3/ ?L. The reference r rigo was not used to interpret this result as normal/abnormal . MPV (test code = 8.9 fL 9.5-12.9 L 81446-6) NRBC/100 WBC (test See_Comment [Automat ed code = 6817622604) message] The system which generated this result transmitted reference range : 0.0 - 10.0 /100 WBCs. The refer ence range was not u sed to interpret th is result as normal/abnormal . NRBC x10^3 (test code <0.01 See_Comment [Auto mated = 7387468669) message] The s ystem which generated this result transmitted reference range : 10*3/?L. The reference range was not used to interpret this result as normal/abnormal . GRAN MAT (NEUT) % 63.0 % (test code = 770-8) IMM GRAN % (test code 0.20 % = 1485412632) LYMPH % (test code = 28.1 % 736-9) MONO % (test code = 6.3 % 5905-5) EOS % (test code = 1.9 % 713-8) BASO % (test code = 0.5 % 706-2) GRAN MAT x10^3(ANC) 5.17 10*3/uL 1.88-7.09 (test code = 9414989495) IMM GRAN x10^3 (test <0.03 0.00-0.06 code = 8444762253) LYMPH x10^3 (test code 2.31 10*3/uL 1.32-3.29 = 731-0) MONO x10^3 (test code 0.52 10*3/uL 0.33-0.92 = 742-7) EOS x10^3 (test code = 0.16 10*3/uL 0.03-0.39 711-2) BASO x10^3 (test code 0.04 10*3/uL 0.01-0.07 = 704-7) Lab Interpretation Abnormal (test code = 27256-5) [facility] 05:22:11 Test Item Value Reference Range Interpretation Comments POCT GLU (test code = 5501531105) 206 mg/dL 70-110 H Lab Interpretation (test code = Abnormal 97617-7) [facility]2021[facility] 03:27:22 Test Item Value Reference Range Interpretation Comments MAGNESIUM (test code = 1471751833) 1.7 mg/dL 1.7-2.4 Lab Interpretation (test code = Normal 87831-6) [facility] HospitalFERRITIN [id number] 03:02:19 Test Item Value Reference Range Interpretation Comments FERRITIN (test code = 225.0 ng/mL 11.0-264.0 9506035589) CLARI (test code = CLARI) Biotin has been reported to cause a negative bias, interpret results relative to patient's use of biotin. Lab Interpretation (test Normal code = 66498-6) [facility]PROCALCITONIN2021-12-29 02:53:39 Test Item Value Reference Range Interpretation Comments Procalcitonin (test 0.03 ng/mL <0.07 code = 9528414780) CLARI (test code = CLARI) INTERPRETATION OF PROCALCITONIN RESULTS IN ADULTS >= 18 YEARS OF AGE Initiation and discontinuation of antibiotics on patients with suspected or confirmed Lower Respiratory Tract Infection in Adults >= 18 years of age. + +-------- --------+ + -----+|Procalcitonin |Interpretation ?|Antibiotic ? ? |Considerations ? |ng/mL ? | ?|recommendation | ? + +-------- --------+ + -----+| <0.1 ? | Bacterial ? ? ?| Strongly ? ? ?| ? | ?| infection very | discouraged ? | Overruling: ? | ?| unlikely ? ? ? | ? | ? Clinically unstable ? ? ? + +-------- --------+ + ? High risk for adverse ? ? | <0.25 ?| Bacterial ? ? ?| Discouraged ? | ? outcome ? | ?| infection ? ? ?| ? | ? SEE IMPORTANT NOTE ?| ?| unlikely ? ? ? | ? | ? + +-------- --------+ + -----+| >=0.25 ? ? ? | Bacterial ? ? ?| Encouraged ? ?| ? | ?| infection ? ? ?| ? | ? | ?| likely ? | ? | Consider treatment failure ?+ +------- ---------+ -+ if levels does not decrease | >0.5 ? | Bacterial ? ? ?| Strongly ? ? ?| appropriately ? | ?| infection very | encouraged ? ?| ? | ?| likely ? | ? | ? + +-------- --------+ + -----+ Discontinuation of antibiotics in high-acuity patients with suspected or confirmed sepsis in Adults >= 18 years of age. + +-------- --------+ + -----+|Procalcitonin |Interpretation ?|Antibiotic ? ? |Considerations ? |ng/mL ? | ?|recommendation | ? + +-------- --------+ + -----+| <0.25 ?| Bacterial ? ? ?| Strongly ? ? ?| ? | ?| infection very | discouraged ? | Overruling: ? | ?| unlikely ? ? ? | ? | ? Clinically unstable ? ? ? + +-------- --------+ + ? High risk for adverse ? ? | <0.5 or drop | Bacterial ? ? ?| Discouraged ? | ? outcome ? | >80% from ? ?| infection ? ? ?| ? | ? SEE IMPORTANT NOTE ?| highest PCT ?| unlikely ? ? ? | ? | ? | level ?| ?| ? | ? + +-------- --------+ + -----+| >=0.5 ?| Bacterial ? ? ?| Encouraged ? ?| ? | ?| infection ? ? ?| ? | ? | ?| likely ? | ? | Consider treatment failure ?+ +------- ---------+ -+ if levels does not decrease | >1.0 ? | Bacterial ? ? ?| Strongly ? ? ?| appropriately ? | ?| infection very | encouraged ? ?| ? | ?| likely ? | ? | ? + +-------- --------+ + -----+ Percentage of drop of Procalcitonin calculation for Discontinuation of antibiotics in high-acuity patients with suspected or confirmed sepsis in Adults >= 18 years of age. ? Procalcitonin highest{}-Procalcitonin current{}Delta Procalcitonin = x100% ? Procalcitonin current {} IMPORTANT NOTE: Procalcitonin may be elevated without bacterial infection by physiologic stress related to trauma, sorensen, chronic dialysis, metastatic cancer, surgery in the past seven days, malaria, some fungal infections, and some forms of vasculitis. The interpretation algorithm may not apply to patients with immunosuppression (equivalent of >10 mg of prednisone daily), HIV with CD4 cell count < 350 cells/mm3, active malignancy on systemic chemotherapy, solid organ transplant or hematopoietic stem cell transplantation, or hospital acquired pneumonia. Additionally, some clinical trials of procalcitonin have excluded patients with shock requiring vasopressor use, acute respiratory failure requiring mechanical ventilation, or those with known lung abscess/empyema. For further information please refer to:[email or web address] Lab Interpretation Normal (test code = 31113-6) [facility] HospitalSUSANNEAmanuel [id number] 02:35:15 Test Item Value Reference Interpretation Comments Range TROPONIN I (test 0.424 ng/mL See_Comment H [Automated code = 6929288771) message] The system which generated this result transmitted reference range : <=0.034. The reference range was not used to interpret this result as normal/abnormal . CLARI (test code = Reference (Normal) CLARI) Range (defined by the 99th percentile reference limit): <= 0.034 ng/mL Note: Cardiac troponin begins to rise 3-4 hours after the onset of ischemia. Repeat in 4-6 hours if the sample was drawn within 3-4 hours of the onset of the symptom and found normal. Diagnosis of myocardial injury is made with acute changes in cTn concentrations with at least one serial sample above the 99th percentile upper reference limit (URL), taken together with the patient's clinical presentation. Biotin has been reported to cause a negative bias, interpret results relative to patient's use of biotin. Lab Interpretation Abnormal (test code = 71032-5) [facility] HospitalLACTATE [id number] 02:19:52 Test Item Value Reference Range Interpretation Comments LDH (test code = 2461708602) 677 U/L 300-600 H Lab Interpretation (test code = Abnormal 10363-8) [facility] HospitalaPTT2021-12-29 02:11:38 Test Item Value Reference Range Interpretation Comments APTT Patient (test code See_Comment H [Au tomated message] = 3173-2) The system [employer] h generated this result transmitted ref erence range: 26 - 36 Seconds. The reference range was not used to int erpret this result as normal/abnormal . Lab Interpretation (test Abnormal code = 16371-0) [facility] HospitalD-[id number] 02:11:38 Test Item Value Reference Interpretation Comments Range D-DIMER (test code = See_Comment H [Autom ated 4168068280) message] The system which generated this result transmitted reference range : <0.50 ?g/mL (FEU). The reference range was not used to interpret this result as normal/abnormal . CLARI (test code = This test may be CLARI) used in conjunction with a clinical pretest probability (PTP) assessment model to exclude venous thromboembolism (VTE) in patients suspected of deep venous thrombosis (DVT) and pulmonary embolism (PE) A D-Dimer value less than 0.50 ?g/ml (FEU) has a negative predicative value of 96 to 100% (95% CI)and 97 to 100% (95% CI) as an aid in the diagnosis of deep vein thrombosis (DVT) and pulmonary embolism when there is low or moderate pretest probability of PE or DVT. D-Dimer values are expressed in initial fibrinogen equivalent units (FEU)" The assay results should be used with other information, including the clinical context, in forming a diagnosis. Lab Interpretation Abnormal (test code = 13209-2) [facility] HospitalProthrombin Time / [id number] 02:11:37 Test Item Value Reference Range Interpretation Comments PROTIME PATIENT (test See_Comment [Auto mated message] code = 5964-2) The system [employer] generated this result transmitted ref erence range: 10.1 - 1 2.6 Seconds. The re ference range was not u sed to interpret this result as normal/abnor mal. INR (test code = 6301-6) Nor mal INR <1.1; Warfarin Therap eutic range 2.0 to 3. 0 or 2.5 to 3.5, dep ending upon the indica tions. Lab Interpretation (test Normal code = 56173-3) [facility] HospitalVITAMIN B12, [id number] 02:08:35 Test Item Value Reference Range Interpretation Comments VIT B12 (test code = 821 pg/mL 240-930 4721894900) CLARI (test code = CALRI) Biotin has been reported to cause a positive bias, interpret results relative to patient's use of biotin. Lab Interpretation (test Normal code = 87213-4) [facility] HospitalETHANOL2021-12-29 01:20:19 Test Item Value Reference Range Interpretation Comments ALCOHOL (test code = <10 mg/dL 8715143326) CLARI (test code = Toxic Greater than or CLARI) equal to 80 mg/dL. NOTE: Whole blood values are approximately 10% to 15% lower than serum and plasma. [facility] HospitalLIPID PANEL (46398)(TOTAL CHOLESTEROL, TRIGLYCERIDES, HDL)2021-07-27 01:17:48 Test Item Value Reference Range Interpretation Comments CHOL (test code = 202 mg/dL 120-200 H 9868662842) HDL (test code = 63 mg/dL >50 7793127243) HDLC RATIO (test code = See_Comment [Au tomated message] 5902580205) The system [employer] generated this result transmit lurdes reference range : <=4.5. The refe rence range was not u sed to interpret th is result as normal/abnormal . TRIG (test code = 132 mg/dL 30-170 3264887120) LDL CHOL (test code = 113 mg/dL See_Comment [Auto mated message] 50934-7) The system [employer] generated this result transmit lurdes reference range : <=160. The refe rence range was not u sed to interpret th is result as normal/abnormal . VLDL (test code = 26 mg/dL 5-60 5339920709) Lab Interpretation (test Abnormal code = 81494-7) [facility] HospitalGLYCOSYLATED HEMOGLOBIN (A1C)2021-07-26 21:04:12 Test Item Value Reference Range Interpretation Comments HGB A1C (test code = 13.3 % 4.0-5.7 H 4548-4) CLARI (test code = CLARI) Reference RangesNormal: <5.7%Prediabetes: 5.7 - 6.4%Diabetes: > 6.5% Lab Interpretation (test Abnormal code = 91200-7) [facility] [id number] 20:26:42 Test Item Value Reference Range Interpretation Comments FREE T3 (test code = 8382283610) 2.76 pg/mL 2.77-5.27 L Lab Interpretation (test code = Abnormal 44149-9) [facility] HospitalTHYROID STIMULATING [id number] 19:56:38 Test Item Value Reference Range Interpretation Comments TSH (test code = See_Comment H [Automated message] 8582438462) The system [employer] generated this result transmitted ref erence range: 0.45 - 4 .70 mIU/L. The refe rence range was not u sed to interpret this result as normal/abnor mal. Lab Interpretation (test Abnormal code = 36029-8) [facility] [id number] 19:43:13 Test Item Value Reference Range Interpretation Comments FREE T4 (test code = See_Comment [Autom ated message] 9772837720) The system [employer] generated this result transmitted ref erence range: 0.78 - 2 .20 ng/dL:. The ref erence range was not u sed to interpret this result as normal/abnor mal. Lab Interpretation (test Normal code = 74953-0) [facility] HospitalTROPONIN [id number] 19:38:10 Test Item Value Reference Interpretation Comments Range TROPONIN I (test 0.518 ng/mL See_Comment H [Automated code = 8975079046) message] The system which generated this result transmitted reference range : <=0.034. The reference range was not used to interpret this result as normal/abnormal . CLARI (test code = Reference (Normal) CLARI) Range (defined by the 99th percentile reference limit): <= 0.034 ng/mL Note: Cardiac troponin begins to rise 3-4 hours after the onset of ischemia. Repeat in 4-6 hours if the sample was drawn within 3-4 hours of the onset of the symptom and found normal. Diagnosis of myocardial injury is made with acute changes in cTn concentrations with at least one serial sample above the 99th percentile upper reference limit (URL), taken together with the patient's clinical presentation. Biotin has been reported to cause a negative bias, interpret results relative to patient's use of biotin. Lab Interpretation Abnormal (test code = 60052-8) [facility] HospitalN-TERMINAL [id number] 19:38:10 Test Item Value Reference Range Interpretation Comments NT-proBNP (test code 2180 pg/mL See_Comment H [Autom ated = 7638684013) message] The system which generated this result transmitted reference range : <=125. The reference range was not used to interpret this result as normal/abnormal . CLARI (test code = CLARI) Biotin has been reported to cause a negative bias, interpret results relative to patient's use of biotin. Lab Interpretation Abnormal (test code = 29697-4) [facility] HospitalCOMP. METABOLIC PANEL (05569)2021-07-26 19:27:30 Test Item Value Reference Range Interpretation Comments NA (test code = 133 mmol/L 135-145 L 5469808054) K (test code = 5.1 mmol/L 3.5-5.0 H 1062144866) CL (test code = 99 mmol/L 98-108 2746189573) CO2 TOTAL (test code = 28 mmol/L 23-31 9977876610) AGAP (test code = 2-16 3612074617) BUN (test code = 20 mg/dL 7-23 2714346653) GLUCOSE (test code = 169 mg/dL 70-110 H 9690610589) CREATININE (test code = 0.99 mg/dL 0.50-1.04 0245195813) TOTAL BILI (test code = 0.5 mg/dL 0.1-1.7 3692978455) CALCIUM (test code = 8.8 mg/dL 8.6-10.6 1741108713) T PROTEIN (test code = 6.6 g/dL 6.3-8.2 1617393106) ALBUMIN (test code = 3.1 g/dL 3.5-5.0 L 8773619452) ALK PHOS (test code = 1212 U/L 34-122 H 0904779665) ALTv (test code = 39 U/L 5-35 H 1742-6) AST(SGOT) (test code = 42 U/L 13-40 H 7476417823) eGFR (test code = mL/min/1.73m2 6655210814) CLARI (test code = CLARI) Association of Glomerular Filtration Rate (GFR) and Staging of Kidney Disease* + --+ --+ ------+| GFR (mL/min/1.73 m2) ?| With Kidney Damage ?| ?Without Kidney Damage+ --------+ --------+ +| ?>90 ?| ?Stage one ?| ? Normal ?+ ---+ ---+ -------+| ?60-89 ?| ?Stage two ?| ? Decreased GFR ? + --+ --+ ------+| ?30-59 ?| ?Stage three ?| ? Stage three ? + --+ --+ ------+| ?15-29 ?| ?Stage four ? | ? Stage four ?+ ---+ ---+ -------+| ?<15 (or dialysis) ? ?| ?Stage five ? | ? Stage five ?+ ---+ ---+ -------+ *Each stage assumes the associated GFR level has been in effect for at least three months. ?Stages 1 to 5, with or without kidney disease, indicate chronic kidney disease. Notes: Determination of stages one and two (with eGFR >59mL/min/1.73 m2) requires estimation of kidney damage for at least three months as defined by structural or functional abnormalities of the kidney, manifested by either:Pathological abnormalities or Markers of kidney damage (including abnormalities in the composition of the blood or urine or abnormalities in imaging tests). Lab Interpretation Abnormal (test code = 15633-9) [facility] Test Item Value Reference Range Interpretation Comments LIPASE (test code = 0500163436) 135 U/L 0-220 Lab Interpretation (test code = Normal 53885-7) [facility] [id number] 19:18:50 Test Item Value Reference Range Interpretation Comments WBC (test code = See_Comment [Automated 3190-2) message] The sy stem which generated this result transmitted reference range : 4.30 - 11.10 10*3/?L. The reference range was not used to interpret this result as normal/abnormal . RBC (test code = See_Comment [Automated 789-8) message] The sy stem which generated this result transmitted reference range : 3.93 - 5.25 10*6/?L. The reference range was not used to interpret this result as normal/abnormal . HGB (test code = 10.7 g/dL 11.6-15.0 L 718-7) HCT (test code = 32.8 % 35.7-45.2 L 4544-3) MCV (test code = 82.4 fL 80.6-95.5 787-2) MCH (test code = 26.9 pg 25.9-32.8 785-6) MCHC (test code = 32.6 g/dL 31.6-35.1 786-4) RDW-SD (test code = 41.1 fL 39.0-49.9 05785-2) RDW-CV (test code = 13.6 % 12.0-15.5 788-0) PLT (test code = See_Comment H [Automated 777-3) message] The sy stem which generated this result transmitted reference range : 166 - 358 10*3/ ?L. The reference r rigo was not used to interpret this result as normal/abnormal . MPV (test code = 8.9 fL 9.5-12.9 L 52003-5) NRBC/100 WBC (test See_Comment [Automat ed code = 6373728285) message] The system which generated this result transmitted reference range : 0.0 - 10.0 /100 WBCs. The refer ence range was not u sed to interpret th is result as normal/abnormal . NRBC x10^3 (test code <0.01 See_Comment [Auto mated = [id number]) message] The s ystem which generated this result transmitted reference range : 10*3/?L. The reference range was not used to interpret this result as normal/abnormal . GRAN MAT (NEUT) % 68.5 % (test code = 770-8) IMM GRAN % (test code 0.40 % = 4974459022) LYMPH % (test code = 23.3 % 736-9) MONO % (test code = 5.7 % 5905-5) EOS % (test code = 1.4 % 713-8) BASO % (test code = 0.7 % 706-2) GRAN MAT x10^3(ANC) 5.69 10*3/uL 1.88-7.09 (test code = 8002993982) IMM GRAN x10^3 (test 0.03 10*3/uL 0.00-0.06 code = 9834175697) LYMPH x10^3 (test code 1.93 10*3/uL 1.32-3.29 = 731-0) MONO x10^3 (test code 0.47 10*3/uL 0.33-0.92 = 742-7) EOS x10^3 (test code = 0.12 10*3/uL 0.03-0.39 711-2) BASO x10^3 (test code 0.06 10*3/uL 0.01-0.07 = 704-7) Lab Interpretation Abnormal (test code = 48881-2) [facility]
[2022-03-19] MEDS ORDERED: MORPHINE 2 MG/ML SYR ONE (03:47)
[2022-03-19] MEDS ORDERED: FUROSEMIDE 40 MG/4 ML VIAL ONE (03:47)
[2022-03-19] MEDS ORDERED: ENOXAPARIN 100 MG/ML SYR SQ ONE (03:47)
[2022-03-19 03:50] LABS: Absolute Lymphocytes (CBC) 4.6 K/uL (0.7-4.9); Hematocrit 26.9 % (36.0-45.0); Lymphocytes % 32.4 % (15.3-44.8); MCV 80.4 fL (80-100); MPV 7.1 fL (7.6-11.3); RBC Red Blood Cell Count 3.34 M/uL (3.86-4.86)
[2022-03-19 03:53] LABS: Protime INR 0.89
[2022-03-19 04:04] LABS: Potassium 3.8 mmol/L (3.5-5.1); Troponin High Sensitivity 7.4 pg/mL (<58.9)
--- NOTE | 2022-03-19 05:09 | EDPHYS ---
Physician Documentation [facility] Name: Jailyn Terry Age: 56 yrs Sex: Female : 1965 Arrival Date: 03/19/2022 Time: 03:14 Bed 8 Private MD: ED Physician Attila Staton HPI: 03/19 08:09 This 56 yrs old Female presents to ER via EMS with complaints of Shortness Of kdr Breath. 08:09 The patient has shortness of breath at rest, with light activity, Shortness of breath kdr started about 1 hour prior to arrival.. Onset: The symptoms/episode began/occurred suddenly, 1 hour(s) ago. Duration: The symptoms are continuous. The patient's shortness of breath is aggravated by exertion, light activity, talking, walking, is alleviated by nothing. Associated signs and symptoms: Pertinent positives: diaphoresis, fever, nausea. Severity of symptoms: At their worst the symptoms were moderate. Severity of symptoms: in the emergency department the symptoms are unchanged. The patient has not experienced similar symptoms in the past. Historical: - Allergies: 03:19 No Known Allergies; kl - Home Meds: 03:19 metformin 1,000 mg Oral tab 1 tab 2 times per day [Active]; kl 03:31 clopidogrel 75 mg oral tab 1 tab once daily [Active]; amlodipine 10 mg tab 1 tab once kl daily [Active]; Lopressor 50 mg Oral tab 1 tab 2 times per day [Active]; - PMHx: 03:19 diabetes mellitus; Hypertensive disorder; kl 03:28 SC; Cataract; kl - PSHx: 03:19 Appendectomy; Cardiac stent; kl - Immunization history:: Adult Immunizations up to date. - Social history:: Smoking status: Patient denies any tobacco usage or history of. ROS: 08:09 Constitutional: Negative for fever, chills, and weight loss, Eyes: Negative for injury, kdr pain, redness, and discharge. 08:09 Respiratory: Positive for cough, "sounds productive", dyspnea on exertion, shortness of breath, wheezing, inspiratory. Exam: 08:09 Constitutional: This is a well developed, well nourished patient who is awake, alert, kdr and in moderate distress. Head/Face: Normocephalic, atraumatic. Eyes: Pupils equal round and reactive to light, extra-ocular motions intact. Lids and lashes normal. Conjunctiva and sclera are non-icteric and not injected. Cornea within normal limits. Periorbital areas with no swelling, redness, or edema. Neck: Trachea midline, no thyromegaly or masses palpated, and no cervical lymphadenopathy. Supple, full range of motion without nuchal rigidity, or vertebral point tenderness. No Meningismus. Chest/axilla: Normal chest wall appearance and motion. Nontender with no deformity. No lesions are appreciated. Abdomen/GI: Soft, non-tender, with normal bowel sounds. No distension or tympany. No guarding or rebound. No evidence of tenderness throughout. 08:09 Cardiovascular: Rate: tachycardic, Rhythm: regular, Pulses: no pulse deficits are appreciated, Heart sounds: normal, Edema: 3+ edema to level of left knee, left midcalf, left ankle, left foot, left toes, right midcalf, right ankle, right foot and right toes. 08:09 Respiratory: mild respiratory distress is noted, moderate respiratory distress is noted, Respirations: labored breathing, Breath sounds: rales, bronchial sounds, decreased breath sounds, rhonchi, + upper airway congestion. wheezing: that is mild, that is moderate, is heard diffusely. Vital Signs: 03:17 BP 165 / 90; Pulse 125; Resp 32; Pulse Ox 92% on Nebulizer Mask; Pain 0/10; kl 03:35 Weight 87.9 kg; kl 04:14 BP 139 / 72; Pulse 115; Resp 24; Pulse Ox 94% on 3 lpm NC; kl 07:23 BP 144 / 74; Pulse 97; Resp 20; Pulse Ox 100% on 3 lpm NC; em6 MDM: 05:08 Patient medically screened. kdr 08:09 Data reviewed: vital signs, nurses notes, lab test result(s), radiologic studies. kdr Counseling: I had a detailed discussion with the patient and/or guardian regarding: the historical points, exam findings, and any diagnostic results supporting the discharge/admit diagnosis, lab results, radiology results, the need for further work-up and treatment in the hospital. 03/19 03:23 Order name: D-Dimer; Complete Time: 04:43 kdr 03/19 03:23 Order name: Basic Metabolic Panel; Complete Time: 04:43 kdr 03/19 03:23 Order name: CBC with Diff; Complete Time: 04:43 kdr 03/19 03:23 Order name: NT PRO-BNP; Complete Time: 04:43 kdr 03/19 03:23 Order name: PT-INR; Complete Time: 04:43 kdr 03/19 03:23 Order name: Troponin HS; Complete Time: 04:43 kdr 03/19 05:07 Order name: SARS-COV-2 RT PCR (Document "Date of Onset" if Symptomatic); Complete Time: ds4 06:59 03/19 10:32 Order name: Troponin High Sensitivity EDMN 03/19 10:34 Order name: Hemoglobin A1c [facility] 03/19 12:38 Order name: Glucose, Ancillary Testing EDMN 03/19 16:30 Order name: Sedimentation Rate, [place] EDMN 03/19 16:44 Order name: Glucose, Ancillary Testing [facility] 03/19 16:50 Order name: Procalcitonin [facility] 03/19 16:54 Order name: Troponin High Sensitivity [facility] 03/19 03:23 Order name: XRAY Chest (1 view) [facility] 03/19 03:23 Order name: EKG; Complete Time: 03:23 kdr 03/19 03:23 Order name: Cardiac monitoring; Complete Time: 03:24 kdr 03/19 03:35 Order name: US Extremity Venous W Compression Ernie [facility] 03/19 04:44 Order name: CT Chest For PE Angio [facility] 03/19 06:51 Order name: CONS Physician Consult [facility] 03/19 16:54 Order name: Liver (Hepatic) Function [facility]MN 03/19 16:54 Order name: C-Reactive Protein [facility] 03/19 16:54 Order name: T4 Free [facility]MN 03/19 16:54 Order name: Thyroid Stimulating Hormone [facility]MN 03/19 20:34 Order name: Troponin High Sensitivity [facility] 03/19 03:23 Order name: EKG - Nurse/Tech; Complete Time: 03:24 kdr 03/19 03:23 Order name: IV Saline Lock; Complete Time: 03:24 kdr 03/19 03:23 Order name: Labs collected and sent; Complete Time: 03:24 kdr 03/19 03:23 Order name: O2 Per Protocol; Complete Time: 03:24 kdr 03/19 03:23 Order name: O2 Sat Monitoring; Complete Time: 03:24 kdr Administered Medications: 03:36 CANCELLED (Duplicate Order): Lasix (furosemide) 40 mg IVP once; give over 2 minutes kl 03:45 Drug: Lovenox (enoxaparin) 1 mg/kg Route: Sub-Q; Site: right upper arm; kl 03:45 Drug: Lasix (furosemide) 40 mg Route: IVP; Site: left antecubital; kl 03:45 Not Given (Patient Refused): morphine 2 mg IVP once over 4 mins kl 06:08 Not Given (Duplicate Order): Xopenex (levalbuterol) (3) 0.63 mg Inhalation once kl Disposition Summary: 03/19/22 05:08 Hospitalization Ordered Hospitalization Status: Inpatient Admission kdr Provider: Omar Guerra Condition: Fair kdr Problem: an acute exacerbation kdr Symptoms: have improved kdr Bed/Room Type: Standard kdr Location: Intensive Care Unit(03/19/22 20:21) ds4 Room Assignment: -(03/19/22 20:21) ds4 Diagnosis - Shortness of breath kdr - Heart failure, unspecified kdr - Acute pulmonary edema kdr - Dyspnea kdr - Dysphagia kdr Forms: - Medication Reconciliation Form kdr - SBAR form kdr Signatures: Dispatcher [employer] EDMS Stephanie Millan RN RN kl Attila Staton MD MD kdr Fabby Gonzalez FNP-Ros[employer]-Liam Ramirez ds4 Sharon Naranjo, RN RN cg Corrections: (The following items were deleted from the chart) 03:36 03:34 Lasix (furosemide) 40 mg IVP once; give over 2 minutes ordered. kl 18:48 05:08 Telemetry/MedSurg (Inpatient) kdr cg 18:48 05:08 kdr cg 20:21 18:48 [facility] ER HOLD cg ds4 20:21 18:48 ERHOLD- cg ds4
--- NOTE | 2022-03-19 05:09 | ER ---
Nurse's Notes [facility] Name: Jailny Terry Age: 56 yrs Sex: Female : 1965 Arrival Date: 03/19/2022 Time: 03:14 Bed 8 Private MD: Diagnosis: Shortness of breath;Heart failure, unspecified;Acute pulmonary edema;Dyspnea;Dysphagia Presentation: 03/19 03:17 Chief complaint: EMS states: pt reports sudden onset of SOB approx 1 hr [employer]. Coronavirus screen: Vaccine status: Patient reports receiving the 2nd dose of the covid vaccine. Ebola Screen: Patient negative for fever greater than or equal to 101.5 degrees Fahrenheit, and additional compatible Ebola Virus Disease symptoms. Initial Sepsis Screen: Does the patient meet any 2 criteria? HR > 90 bpm. Does the patient have a suspected source of infection? No. Patient's initial sepsis screen is negative. Risk Assessment: Do you want to hurt yourself or someone else? Patient reports no desire to harm self or others. Onset of symptoms was March 19, 2022 at 02:00. 03:17 Method Of Arrival: EMS: [facility] 03:17 Acuity: JENNIFER 3 03:21 Care prior to arrival: Medication(s) given: Albuterol Neb x 2, IV initiated. 20 GA, in kl the left antecubital area. 03:46 Note Per EMS initial O2 sat 88% upon arrival. Triage Assessment: 03:19 General: Appears distressed, uncomfortable, Behavior is cooperative, anxious. Pain: kl Denies pain. Respiratory: Airway is patent Respiratory effort is labored, with retractions. 03:22 Cardiovascular: Capillary refill < 3 seconds Rhythm is sinus tachycardia with unifocal kl PVCs. Musculoskeletal: Swelling present in bilateral lower extremities. Historical: - Allergies: 03:19 No Known Allergies; kl - Home Meds: 03:19 metformin 1,000 mg Oral tab 1 tab 2 times per day [Active]; kl 03:31 clopidogrel 75 mg oral tab 1 tab once daily [Active]; amlodipine 10 mg tab 1 tab once kl daily [Active]; Lopressor 50 mg Oral tab 1 tab 2 times per day [Active]; - PMHx: 03:19 diabetes mellitus; Hypertensive disorder; kl 03:28 SC; Cataract; kl - PSHx: 03:19 Appendectomy; Cardiac stent; kl - Immunization history:: Adult Immunizations up to date. - Social history:: Smoking status: Patient denies any tobacco usage or history of. Assessment: 03:21 Cardiovascular: Rhythm is sinus tachycardia with unifocal PVCs. tw5 Vital Signs: 03:17 BP 165 / 90; Pulse 125; Resp 32; Pulse Ox 92% on Nebulizer Mask; Pain 0/10; kl 03:35 Weight 87.9 kg; kl 04:14 BP 139 / 72; Pulse 115; Resp 24; Pulse Ox 94% on 3 lpm NC; kl 07:23 BP 144 / 74; Pulse 97; Resp 20; Pulse Ox 100% on 3 lpm NC; em6 ED Course: 03:14 Patient arrived in ED. kl 03:16 Attila Staton MD is Attending Physician. kdr 03:19 Triage completed. kl 03:21 EKG done, by ED staff, reviewed by Attila Staton MD. tw5 03:21 Client placed on continuous cardiac and pulse oximetry monitoring. NIBP monitoring kl applied. 03:23 Polo Clark, RN is Primary Nurse. jb4 04:06 Assisted to bedside commode. tw5 04:14 Notified ED physician of a critical lab result(s). D Dimer 2510. kl 04:51 US Extremity Venous W Compression Ernie In Process Unspecified. EDMS 05:03 XRAY Chest (1 view) In Process Unspecified. EDMS 05:07 Omar Guerra MD is Hospitalizing Provider. kdr 05:19 CT Chest For PE Angio In Process Unspecified. EDMS 07:13 Primary Nurse role handed off by Polo Clark, RN jl7 Administered Medications: 03:36 CANCELLED (Duplicate Order): Lasix (furosemide) 40 mg IVP once; give over 2 minutes kl 03:45 Drug: Lovenox (enoxaparin) 1 mg/kg Route: Sub-Q; Site: right upper arm; kl 03:45 Drug: Lasix (furosemide) 40 mg Route: IVP; Site: left antecubital; kl 03:45 Not Given (Patient Refused): morphine 2 mg IVP once over 4 mins kl 06:08 Not Given (Duplicate Order): Xopenex (levalbuterol) (3) 0.63 mg Inhalation once kl Outcome: 05:08 Decision to Hospitalize by Provider. kdr 21:35 Patient left the ED. tw5 Signatures: Dispatcher [employer] EDMS Stephanie Millan, RN RN Attila Galvez MD MD kdr Bryson, James RN RN jb4 Flori Reich RN RN jl7 Dianne Jimenez tw5 Ana Cristina Bajwa RN RN em6
[2022-03-19] MEDS ORDERED: ACETAMINOPHEN 500 MG TAB PO PRN (07:24)
--- NOTE | 2022-03-19 07:27 | P.HP ---
Certification for Inpatient With expected LOS: <2 Midnights <Fabby Gonzalez - Last Filed: 03/19/22 07:20> Patient History Date of Service: 03/19/22 Primary Care Provider: None Reason for admission: CHF, Murmur History of Present Illness: Pt presents to the ED with c/o sudden shortness of breath that awoke her from sleep at 0200. Pt's Daughter checked pt's blood pressure prior to calling EMS and noted the systolic was >200mmHg and heartrate >120. Pt noted lower extremity edema. In the ED pt has rec'd lasix and lovenox. She is feeling better at this time. Pt belatedly recalls that she has been having a toothache to upper mandible x one month. Denies fever, rash or other s/s of illness Pt provided current medication list: Norvasc 10mg po daily Clopidigrel 75mg po daily Metformin 500mg po BID Metoprolol 50mg po BID Home medications list reviewed: Yes - Past Medical/Surgical History Has patient received pneumonia vaccine in the past: No Diabetic: Yes -: Hypertension -: Hyperlipidemia -: DM type II -: Thyroid disorder -: [place] in Jun 2021 with stent -: Cardiac stent placed 07/19 -: Appendectomy Psychosocial/ Personal History: Pt lives at home with one of her Daughters. - Family History Mother -: Diabetes - Social History Smoking Status: Never smoker Alcohol use: No CD- Drugs: No Caffeine use: Yes Place of Residence: Home <Fabby Gonzalez - Last Filed: 03/19/22 07:20> Date of Service: 03/19/22 <Omar Guerra - Last Filed: 03/19/22 22:02> Allergies No Known Drug Allergies Allergy (Verified 07/12/21 15:43) Unknown No Known Allergies Allergy (Uncoded 01/29/18 02:29) Unknown Home Medications: Amlodipine [Norvasc*] 10 mg PO DAILY #30 tab 07/15/21 Aspirin [Aspirin EC] 81 mg PO DAILY #30 tablet. 07/15/21 Clopidogrel Bisulfate [Plavix] 75 mg PO DAILY #30 tablet 07/15/21 Metoprolol Tartrate [Lopressor*] 50 mg PO BID #60 tab 07/15/21 Metformin HCl 500 mg PO BID 03/19/22 Review of Systems General: Unremarkable Eyes: Unremarkable ENT: Unremarkable Respiratory: Shortness of Breath Cardiovascular: Edema, Light Headedness Gastrointestinal: Unremarkable Genitourinary: Unremarkable Musculoskeletal: Unremarkable Integumentary: Unremarkable Neurological: Unremarkable <Fabby Gonzalez - Last Filed: 03/19/22 07:20> Physical Examination - Vital Signs Blood Pressure: 105/63 Pulse: 115 Respirations: 20 Pulse Ox (%): 98 - Physical Exam General: Alert, Oriented x3 HEENT: Other (tenderness to upper right molar to palpation of gingiva) Neck: No Thyromegaly Respiratory: Diminished, Crackles/rales Cardiovascular: Regular rate/rhythm, Edema, Systolic murmur Capillary refill: <2 Seconds Gastrointestinal: Soft and benign, Non-distended, No tenderness Musculoskeletal: No erythema, No tenderness Integumentary: No significant lesion, No cyanosis Neurological: Normal speech, Normal strength at 5/5 x4 extr, Normal affect - Studies Laboratory Data (last 24 hrs) 03/19/22 03:25: WBC 14.30 H, Hgb 9.0 L, Hct 26.9 L, Plt Count 470 H 03/19/22 03:25: Sodium 138, Potassium 3.8, BUN 32 H, Creatinine 1.53 H, Glucose 129 H 03/19/22 03:25: PT 9.8, INR 0.89 Imagings Data: Pt had negative DVT study, chest x-ray consistent with overload, and CT negative for PE in ED <Fabby Gonzalez - Last Filed: 03/19/22 07:20> - Studies Laboratory Data (last 24 hrs) 03/19/22 03:25: WBC 14.30 H, Hgb 9.0 L, Hct 26.9 L, Plt Count 470 H 03/19/22 03:25: Sodium 138, Potassium 3.8, BUN 32 H, Creatinine 1.53 H, Glucose 129 H 03/19/22 03:25: PT 9.8, INR 0.89 <mOar Guerra - Last Filed: 03/19/22 22:02> Assessment and Plan - Problems (Diagnosis) (1) CHF (congestive heart failure) Onset Date: Unknown Current Visit: Yes Status: Acute Plan: Lasix 20mg IV Q 12h I&O, daily weights Serial troponin, daily EKG Continue Plavix SCDs for DVT prophylaxis Qualifiers: Heart failure type: right-sided Heart failure chronicity: acute Qualified Code(s): I50.811 - Acute right heart failure (2) Aortic systolic murmur on examination Onset Date: Unknown Current Visit: Yes Status: Acute Plan: Echo with Doppler to eval EF and valves Consult Dr. Cordoba (3) Diabetes mellitus Onset Date: Unknown Current Visit: Yes Status: Acute Plan: FSBS Q AC&HS, Hemoglobin A1C Metformin 500mg po BID Qualifiers: Diabetes mellitus type: type 2 Diabetes mellitus complication status: without complication (4) Dental caries Onset Date: Unknown Current Visit: Yes Status: Acute Plan: Vancomycin 1.5gm IVPB q 12h Plan to discharge in: 48 Hours - Advance Directives Does patient have a Living Will: No Does patient have a Durable POA for Healthcare: No - Code Status/Comfort Care Code Status Assessed: Yes (Full) <aFbby Gonzalez - Last Filed: 03/19/22 07:20> Physician Review Additional Text: Plan of care reviewed as noted above. Patient seen and examined on rounds this morning at time of admission. new systolic murmur, 3-4 weeks of dental pain. last TTE (06/2021 - normal valves, normal EF) patient with ~25 lb weight loss in ~6-7 months, but has been following heart healthy diet. has had decreased physical tolerance has to rest frequently when out shopping in large places. concern for ACS, aortic stenosis vs endocarditis - empiric coverage with Vanc endocarditis less likely, as patient without leukocytosis, without fever, no physical findings (splinter hemorrhages/osler's nodes, janeway lesions, etc) CT read as possible pneumonia. check ESR, CRP, procal, lipid panel, thyroid studies Time Spent Managing Pts Care (In Minutes): 70 <Omar Guerra - Last Filed: 03/19/22 22:02>
[2022-03-19] MEDS ORDERED: IPRATROPIUM BROM 0.5MG/2.5ML NEB PRN (08:00)
[2022-03-19] MEDS ORDERED: VANCOMYCIN 1 GM/VIAL ONE (08:16)
[2022-03-19] MEDS ORDERED: VANCOMYCIN 500 MG/VIAL ONE (08:16)
[2022-03-19] MEDS ORDERED: FUROSEMIDE 20 MG/ 2ML VIAL ONE ×2 (08:16→16:52)
[2022-03-19] MEDS ORDERED: NA CHLORIDE 0.9% 0 ML ONE (08:17)
[2022-03-19] MEDS: FUROSEMIDE 20 MG/ 2ML VIAL IV SCH ×2 (09:00→17:00)
[2022-03-19] MEDS ORDERED: VANCOMYCIN 1.5 GM in NA CHLORIDE 0.9% 500 ML IVPB SCH (09:00)
[2022-03-19] MEDS ORDERED: AZITHROMYCIN 500 MG INJ IVPB ONE (10:42)
[2022-03-19] MEDS ORDERED: NA CHLORIDE 0.9% 250 ML ONE (10:43)
[2022-03-19] MEDS: AZITHROMYCIN IV 500 MG in NA CHLORIDE 0.9% 250 ML IVPB SCH (11:00)
--- NOTE | 2022-03-19 11:49 | CON ---
Date of Consultation: 03/19/2022 Reason For Consultation: New onset congestive heart failure. History Of Present Illness: Ms. Terry is 56, has just recently had CAD with stent by Dr. Cha in 2020. She has a history of gastroesophageal reflux disease, hypertension, dyslipidemia, and cholesterol, comes in with new onset CHF. Denied chest pain, nausea, vomiting, diaphoresis. Has had PND, orthopnea, pedal edema, shortness of breath. Denied palpitations or syncope. Denied any fever or chills. Past Medical History: As stated above. Allergies: NONE. Review of Systems: Negative. Social History: Negative. Family History: Negative. Medications: Include metformin, aspirin, Plavix, Lipitor, Norvasc, Neurontin, insulin, metoprolol, l isinopril, and Protonix. Physical Examination: Vital Signs: Stable, afebrile. HEENT: Negative. Neck: Supple with no bruit. Chest: Revealed some rales both bases. Cardiac: Revealed a regular rhythm and rate with an aortic regurgitation murmur. No gallops or rubs . Abdomen: Benign. Extremities: Revealed 1+ edema. Skin: Dry and intact. Diagnostic Data: Showed a creatinine of 1.53, hemoglobin of 9.0, D-dimer of 2510. BNP was 1061. EK G, nonspecific changes. Chest x-ray is pending. Impression And Plan: New onset congestive heart failure, probably diastolic. Has an aortic regurgit ation murmur. Echocardiogram is pending. I doubt that she has endocarditis considering she has no w bonnie count, no fever and I think she would be a lot sicker if she had new onset aortic regurgitation from endocarditis, but we will see what the echo shows. Continue Lasix. Continue inhaler. Continue her home medication. Other problems include renal insufficiency. We need to watch her creatinine g ently with diuresis. She has mild anemia, elevated BNP and D-dimer secondary to congestive heart teja lure. Continue present regimen. Her blood pressure and cholesterol are stable. She has a history o f coronary artery disease status post percutaneous coronary intervention. No chest pain reported. T his is stable. Continue present regimen. We will continue to follow. NB/MODL Voice ID: [id number] Report ID: [id number]
[2022-03-19] MEDS ORDERED: ALBUTEROL 2.5 MG/3 ML NEB SOL NEB PRN (12:00)
[2022-03-19] MEDS ORDERED: AMPICILLIN/SULBACT 3 GM in NA CHLORIDE 0.9% 100 ML IVPB SCH (12:00)
[2022-03-19] MEDS: METOPROLOL TAR 50 MG TAB PO SCH (14:00)
[2022-03-19] MEDS: AMLODIPINE 10 MG TAB PO SCH (14:00)
[2022-03-19] MEDS: CLOPIDOGREL 75 MG TABLET PO SCH (14:00)
[2022-03-19] MEDS ORDERED: METOPROLOL TAR 50 MG TAB ONE (14:45)
[2022-03-19] MEDS ORDERED: AMLODIPINE 10 MG TAB ONE (14:46)
[2022-03-19] MEDS ORDERED: CLOPIDOGREL 75 MG TABLET ONE (14:46)
[2022-03-19 16:35] LABS: ALT/SGPT 22 U/L (12-78); AST/SGOT 21 U/L (15-37); Albumin 2.6 g/dL (3.4-5.0); Alkaline Phosphatase 157 U/L (45-117); Bilirubin Total 0.4 mg/dL (0.2-1.0); C-Reactive Protein 9.36 mg/L (<3.00); Protein, Total 6.3 g/dL (6.4-8.2)
[2022-03-19] MEDS ORDERED: NA CHLORIDE 0.9% 100 ML ONE (16:52)
[2022-03-19] MEDS ORDERED: AMPICILLIN/SULBACTAM 3GM/VIAL ONE (16:52)
[2022-03-19 16:54] LABS: Bilirubin Direct < 0.1 mg/dL (0-0.2)
[2022-03-19] MEDS: AMPICILLIN/SULBACT 3 GM in NA CHLORIDE 0.9% 100 ML IVPB SCH (17:00)
[2022-03-20] MEDS: AMPICILLIN/SULBACT 3 GM in NA CHLORIDE 0.9% 100 ML IVPB SCH ×3 (00:53→16:21)
[2022-03-20 05:10] LABS: Absolute Lymphocytes (CBC) 2.8 K/uL (0.7-4.9); MCV 80.5 fL (80-100); MPV 6.9 fL (7.6-11.3); RBC Red Blood Cell Count 3.11 M/uL (3.86-4.86)
[2022-03-20] MEDS: METOPROLOL TAR 50 MG TAB PO SCH ×2 (05:15→17:06)
[2022-03-20 05:29] LABS: Potassium 3.9 mmol/L (3.5-5.1)
[2022-03-20 05:37] LABS: Troponin High Sensitivity 170.5 pg/mL (<58.9)
--- NOTE | 2022-03-20 06:09 | P.PN ---
Date of Service: 03/20/22 Subjective: feeling much better today swelling improved breathing more comfortably more strength, got out of bed to urinate ROS: 10 point ROS as noted above, otherwise negative Physical Exam: Gen: NAD, AOx3 CV: regular rate & rhythm, systolic murmur @RUSB, 1+ pitting edema to knees Pulm: mild labored respirations, oon 2L NC Abd: soft, non-tender, non-distended MSK: no contractures, no tenderness Neuro: normal speech, normal affect, moves all extremities vitals reviewed Problem List acute CHF, new onset New systolic murmur NIDDM2 Tooth Pain Obesity patient with ~25 lb weight loss in ~6-7 months, but has been following heart healthy diet. has had decreased physical tolerance has to rest frequently when out shopping in large places. continue lasix wean O2 as tolerated slight concern for endocarditis new systolic murmur, 3-4 weeks of dental pain. last TTE (06/2021 - normal valves, normal EF) concern for ACS, aortic stenosis vs endocarditis - empiric coverage with Vanc endocarditis less likely, as patient without leukocytosis, without fever, no physical findings (splinter hemorrhages/osler's nodes, janeway lesions, etc) CT read as possible pneumonia - started on empiric unasyn/azithro inflammatory markers elevated VTE: lovenox Dispo: home, ~1-2 days Time Spent Managing Pts Care (In Minutes): 35
--- NOTE | 2022-03-20 08:09 | EKG ---
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
[2022-03-20] MEDS: ASPIRIN EC 81 MG TAB PO SCH (09:26)
[2022-03-20] MEDS: AMLODIPINE 10 MG TAB PO SCH (09:26)
[2022-03-20] MEDS: CLOPIDOGREL 75 MG TABLET PO SCH (09:27)
[2022-03-20] MEDS: FUROSEMIDE 20 MG/ 2ML VIAL IV SCH ×2 (09:27→16:22)
[2022-03-20] MEDS: AZITHROMYCIN IV 500 MG in NA CHLORIDE 0.9% 250 ML IVPB SCH (09:27)
[2022-03-20] MEDS ORDERED: VANCOMYCIN 1.25 GM in NA CHLORIDE 0.9% 250 ML IVPB SCH ×2 (11:00→21:00)
[2022-03-20] MEDS ORDERED: D50W 25 GM/50 ML SYRINGE IV PRN (11:38)
[2022-03-20] MEDS ORDERED: GLUCAGON 1 MG/VIAL IM PRN (11:38)
[2022-03-20] MEDS ORDERED: DEXTROSE 10%-WATER 125 ML IV PRN (11:53)
[2022-03-20] MEDS: INSULIN -REGULAR HUMAN 50 UNIT/0.5 ML ML SQ SCH ×3 (12:05→21:35)
--- NOTE | 2022-03-20 13:11 | RAD REPORT ---
EXAM DESCRIPTION: US - Extrem Venous W Compress Ernie - 03/20/2022 5:20 am CLINICAL HISTORY: Lower Extremity swelling. COMPARISON: None. TECHNIQUE: Grayscale, color Doppler, duplex Doppler, spectral Doppler images and analysis with compr ession and augmentation of right and left lower extremity veins. FINDINGS: Right and Left common femoral, greater saphenous, femoral, deep (profunda) femoral, poplit eal, posterior tibial veins unremarkable without evidence of clot. IMPRESSION: No sonographic evidence of right or left lower extremity DVT. Electronically signed by: Aleksandar Johnson MD 03/19/2022 6:16 AM CDT Due to temporary technical issues with the PACS/Fluency reporting system, reports are being signed by the in house radiologists without review as a courtesy to insure prompt reporting. The interpreting radiologist is fully responsible for the content of the report.
--- NOTE | 2022-03-20 13:14 | RAD REPORT ---
EXAM DESCRIPTION: RAD - Chest Single View - 03/19/2022 5:01 am CLINICAL HISTORY: 56 years Female, CHEST PAIN COMPARISON: None. FINDINGS: Prominence of the cardiomediastinal silhouette and central vasculature with bilateral inte rstitial opacities and bibasilar airspace opacities. No pneumothorax or pleural effusion. Osseous structures are unremarkable. IMPRESSION: Findings suggestive of edema. Underlying concomitant infectious process not completely e xcluded. Electronically signed by: Boni Ivan MD 03/19/2022 6:55 AM CDT Due to temporary technical issues with the PACS/Fluency reporting system, reports are being signed by the in house radiologists without review as a courtesy to insure prompt reporting. The interpreting radiologist is fully responsible for the content of the report.
--- NOTE | 2022-03-20 13:19 | RAD REPORT ---
EXAM DESCRIPTION: CT - Chest For Pe Angio - 03/19/2022 7:14 am CLINICAL HISTORY: 56 years Female SOB. TECHNIQUE: Following the administration of intravenous contrast, multiple high-resolution axial imag es of the chest were performed followed by sagittal and coronal reconstructed images. Coronal oblique MIP images were also performed. The CT study is performed according to ALARA (as low as reasonably a chievable) or ALARA/IMAGE GENTLY, with automatic adjustment of mA and/or kV according to patient size . Performed on: 03/19/2022 at 5:12 AM COMPARISON: CT chest performed on 07/12/2021 FINDINGS: There is satisfactory visualization and contrast opacification of pulmonary arteries. No definite intra-arterial filling defects are identified to suggest acute or chronic pulmonary embolis m. The thoracic aorta is normal in caliber and contour without evidence of aneurysm or dissection. Lungs are well-expanded. There are small bilateral pleural effusions. There is fluid within the poste rior right major fissure. There is patchy bibasilar airspace disease concerning for multifocal pneumo maria ines. The right middle lobe is grossly clear. There is minimal patchy airspace disease along the infer olateral aspect of the left upper lobe. There is no pneumothorax. The central airways are patent and are unremarkable. The heart is top normal in size. There is no pericardial effusion. There is no reflux of contrast int o the hepatic veins to suggest right heart strain.The RV/LV ratio is within normal limits. There are mildly prominent mediastinal and hilar lymph nodes which are nonspecific and may be reactiv e inflammatory in nature. There is no evidence of axillary lymphadenopathy. No acute osseous abnormality is identified. The visualized upper abdominal structures are unremarkable. IMPRESSION: 1. No evidence of acute or chronic pulmonary embolism, aortic aneurysm or aortic disse ction. 2. Small bilateral pleural effusions with fluid within the posterior right major fissure. 3. Patchy airspace disease in the lower lobes bilaterally concerning for multifocal pneumonia. Ther e is minimal patchy airspace disease along the inferolateral aspect of the left upper lobe. 4. Mildly prominent mediastinal and hilar lymph nodes which are nonspecific and may be reactive inf lammatory in nature. Electronically signed by: Stefanie Ortega DO 03/19/2022 7:01 AM CDT Due to temporary technical issues with the PACS/Fluency reporting system, reports are being signed by the in house radiologists without review as a courtesy to insure prompt reporting. The interpreting radiologist is fully responsible for the content of the report.
[2022-03-20 21:27] VITALS: O2SAT 99
[2022-03-21] MEDS: AMPICILLIN/SULBACT 3 GM in NA CHLORIDE 0.9% 100 ML IVPB SCH ×2 (00:30→08:18)
[2022-03-21 05:10] LABS: Absolute Lymphocytes (CBC) 2.7 K/uL (0.7-4.9); Hematocrit 25.1 % (36.0-45.0); Lymphocytes % 34.3 % (15.3-44.8); MPV 7.2 fL (7.6-11.3)
[2022-03-21 05:13] LABS: Magnesium 2.1 mg/dL (1.8-2.4); Potassium 4.1 mmol/L (3.5-5.1)
[2022-03-21] MEDS: METOPROLOL TAR 50 MG TAB PO SCH (05:42)
[2022-03-21 05:48] VITALS: BMI 32.7
--- NOTE | 2022-03-21 05:58 | ECHO ---
HEIGHT: 5 ft 0 in WEIGHT: 167 lb 9 oz DATE OF STUDY: 03/20/[address]: Fabby Lizama CANVAS SHRINKER-BC 2-DIMENSIONAL: YES M.MODE: YES DOPPLER: YES COLOR FLOW: YES TDS: PORTABLE: YES DEFINITY: BUBBLE STUDY: DIAGNOSIS: RULE OUT ENDOCARDITIS CARDIAC HISTORY: CATHERIZATION: NO SURGERY: NO PROSTHETIC VALVE: NO PACEMAKER: NO MEASUREMENTS (cm) DIASTOLIC (NORMALS) SYSTOLIC (NORMALS) IVSd 1.2 (0.6-1.2) LA Diam 3.6 (1.9-4.0) LVEF 60% LVIDd 4.5 (3.5-5.7) LVIDs 3.0 (2.0-3.5) %FS 32% LVPWd 1.1 (0.6-1.2) Ao Diam 2.4 (2.0-3.7) 2 DIMENSIONAL ASSESSMENT: RIGHT ATRIUM: NORMAL LEFT ATRIUM: NORMAL RIGHT VENTRICLE: NORMAL LEFT VENTRICLE: NORMAL TRICUSPID VALVE: MILD TO MODERATE TRICUSPID REGURGITATION MITRAL VALVE: MILD MITRAL REGURGITATION PULMONIC VALVE: NORMAL AORTIC VALVE: THICKENED, NO AORTIC INSUFFICIENCY PERICARDIAL EFFUSION: NONE AORTIC ROOT: NORMAL LEFT VENTRICULAR WALL MOTION: NORMAL DOPPLER/COLOR FLOW: SEE BELOW COMMENTS: NORMAL LEFT VENTRICULAR EJECTION FRACTION 55-60%. MILD TO MODERATE TRICUSPID REGURGITATION. THICKENED AORTIC VALVE, NO AORTIC INSUFFICIENCY. NO CLEAR VEGETATION IS SEEN, RECOMMEND TRANSESOPHEGEAL ECHOCARDIOGRAM IF CLINICALLY IS INDICATED. TECHNOLOGIST: RADAMES SNIDER
--- NOTE | 2022-03-21 07:17 | PN ---
Date of Progress Note: 03/20/2022 History: Ms. Terry was admitted with congestive heart failure, has a history of hypertension, diabet es, dyslipidemia, and coronary artery disease. Echocardiogram was ordered, but remains pending. Her last stent was in June 2021, by Dr. Cha. Her congestive heart failure is presumed to be elena tolic and new onset. There was an aortic regurgitation murmur and that is why the echo is pending, b ut that is still unavailable at this point. We will continue Lasix, continue inhaler. Continue on h ome medication. We need to continue to watch her I's and O's, weight, and creatinine with diuresis. She remained in sinus rhythm. Good I's and O's. O2 saturation 99%. Hemoglobin is 8.5, troponin we nt down from 243 to 170. Presently, she is on aspirin, Norvasc, Plavix, Lasix, insulin, metoprolol, and multiple antibiotics. We will continue to follow her as needed. We will see what the echo shows . SUJEY/ALTA Voice ID: [id number] Report ID: [id number]
[2022-03-21] MEDS: INSULIN -REGULAR HUMAN 50 UNIT/0.5 ML ML SQ SCH (07:30)
[2022-03-21] MEDS: ASPIRIN EC 81 MG TAB PO SCH (08:16)
[2022-03-21] MEDS: AMLODIPINE 10 MG TAB PO SCH (08:16)
[2022-03-21] MEDS: FUROSEMIDE 20 MG/ 2ML VIAL IV SCH (08:17)
[2022-03-21] MEDS: CLOPIDOGREL 75 MG TABLET PO SCH (08:18)
[2022-03-21] MEDS: AZITHROMYCIN IV 500 MG in NA CHLORIDE 0.9% 250 ML IVPB SCH (08:18)
[2022-03-21 10:53] VITALS: BP 176/87; TEMP 97.7
[2022-03-21] MEDS ORDERED: levoFLOXacin 750 MG TAB PO SCH (11:00)
--- NOTE | 2022-03-21 12:17 | P.DS ---
Admission Date: 03/19/22 Discharge Date: 03/21/22 Primary Care Provider: None Disposition: ROUTINE DISCHARGE Discharge Condition: FAIR Reason for Admission: CHF, Murmur Brief History of Present Illness: Pt presents to the ED with c/o sudden shortness of breath that awoke her from sleep. Pt's Daughter checked pt's blood pressure prior to calling EMS and noted the systolic was >200mmHg and heartrate >120. Pt noted lower extremity edema. In the ED pt rec'd lasix and lovenox. Pt recalled that she has been having a toothache to upper mandible x one month. Initial troponin mildly elevated. Patient was hospitalized for further management. Hospital Course: Acute CHF, new onset New systolic murmur NIDDM2 Tooth Pain Obesity Patient admitted to the medical floor. CTA thorax was done which demonstrated pulmonary edema versus infiltrate Patient diagnosed with acute CHF and treated with IV Lasix. She had a murmur. Echocardiogram done which showed thickened aortic valve, no Vegetation, no aortic insufficiency. She was initially requiring oxygen which was weaned off. Blood cultures yielded no growth. Patient seen and evaluated by cardiology who recommended medical management. Last TTE (06/2021 - normal EF, no comment on her valves.) Patient treated briefly with IV vancomycin. She has no leukocytosis, no fever, no physical findings to suggest endocarditis. She is currently asymptomatic. Troponin was only mildly elevated and then trended down. Patient cleared for discharge by cardiology. She is prescribed oral Levaquin to continue treatment for pneumonia. Follow-up with cardiology as outpatient. Dr. Cordoba plan to arrange LIZBETH as outpatient. Vital Signs/Physical Exam: Temp Pulse Resp BP Pulse Ox 97.7 F 76 16 176/87 H 100 03/21/22 08:00 03/21/22 10:36 03/21/22 08:00 03/21/22 10:36 03/21/22 10:36 General: Alert, In no apparent distress, Oriented x3 HEENT: Mucous membr. moist/pink Neck: Supple, JVD not distended Respiratory: Clear to auscultation bilaterally, Normal air movement Cardiovascular: No edema, Regular rate/rhythm, Normal S1 S2, No murmurs Gastrointestinal: Normal bowel sounds, Soft and benign, Non-distended, No tenderness Musculoskeletal: No swelling Integumentary: No rashes, No cyanosis Neurological: Normal strength at 5/5 x4 extr, Cranial nerves 3-12 intact Laboratory Data at Discharge: WBC 8.00 K/uL (4.3-10.9) 03/21/22 04:25 Hgb 8.5 g/dL (12.0-15.0) L 03/21/22 04:25 Hct 25.1 % (36.0-45.0) L 03/21/22 04:25 Plt Count 428 K/uL (152-406) H 03/21/22 04:25 PT 9.8 SECONDS (9.5-12.5) 03/19/22 03:25 INR 0.89 03/19/22 03:25 Sodium 139 mmol/L (136-145) 03/21/22 04:25 Potassium 4.1 mmol/L (3.5-5.1) 03/21/22 04:25 BUN 28 mg/dL (7-18) H 03/21/22 04:25 Creatinine 1.27 mg/dL (0.55-1.3) 03/21/22 04:25 Glucose 121 mg/dL (74-106) H 03/21/22 04:25 Magnesium 2.1 mg/dL (1.8-2.4) 03/21/22 04:25 Total Bilirubin 0.4 mg/dL (0.2-1.0) 03/19/22 15:40 AST 21 U/L (15-37) 03/19/22 15:40 ALT 22 U/L (12-78) 03/19/22 15:40 Alkaline Phosphatase 157 U/L (45-117) H 03/19/22 15:40 Home Medications: Metformin HCl 500 mg PO BID 03/19/22 Amlodipine [Norvasc*] 10 mg PO DAILY #30 tab 03/21/22 Aspirin [Aspirin EC] 81 mg PO DAILY #30 tablet. 03/21/22 Clopidogrel Bisulfate [Plavix*] 75 mg PO DAILY #30 tablet 03/21/22 Furosemide [Lasix] 40 mg PO DAILY #30 tab 03/21/22 Metoprolol Tartrate [Lopressor*] 50 mg PO BID #60 tab 03/21/22 levoFLOXacin [Levaquin] 750 mg PO DAILY #7 tab 03/21/22 New Medications: Aspirin [Aspirin EC] 81 mg PO DAILY #30 tablet. Furosemide [Lasix] 40 mg PO DAILY #30 tab levoFLOXacin [Levaquin] 750 mg PO DAILY #7 tab Metoprolol Tartrate [Lopressor*] 50 mg PO BID #60 tab Amlodipine [Norvasc*] 10 mg PO DAILY #30 tab Clopidogrel Bisulfate [Plavix*] 75 mg PO DAILY #30 tablet Physician Discharge Instructions: PROBLEM: Congestive Heart Failure GOAL: Clear understanding of disease process INSTRUCTIONS:Take medications as prescribed, follow up with as ordered Follow up with a Guest Advisor of your choice: ZAC PADRON, TIFFANIE S [address] [place] [id number] MALOU PADRON, ARLE[address] [address] Diet: ADA Activity: Ad marley DME DME: Date Ordered: Name of Company: [employer] Services Needed: Name of Company: Date or Referral: IMMUNIZATION Influenza Vaccine Indicated: Influenza Vaccine Given: Date Given: Pneumonia Vaccine Indicated: No Pneumonia Vaccine Given: Date Given: Diet: ADA Activity: Ad marley Followup: NONE,NONE [Primary Care Provider] - 1-2 Weeks Time spent managing pt's care (in minutes): 38
== END 2022-03-21 10:54 | disposition home or self-care (01) | DRG 291 ==
LOC: ER 03:06 → ERHOLD 06:45 → 3RD-ICU 20:40
PROVIDERS: ADMIT Hospitalist; ATTEND Hospitalist
DX: I11.0 Hypertensive heart disease with heart failure (principal); I50.31 Acute diastolic (congestive) heart failure; J18.9 Pneumonia, unspecified organism; E11.9 Type 2 diabetes mellitus without complications; E78.5 Hyperlipidemia, unspecified; I25.10 Atherosclerotic heart disease of native coronary artery without angina pectoris; R01.1 Cardiac murmur, unspecified; E66.9 Obesity, unspecified; Z68.32 Body mass index [BMI] 32.0-32.9, adult; K02.9 Dental caries, unspecified; I25.2 Old myocardial infarction; Z95.5 Presence of coronary angioplasty implant and graft; Z20.822 Contact with and (suspected) exposure to COVID-19
CPT/HCPCS: 36415; 71045; 71275; 80048; 80076; 82947; 83036; 83735; 83880; 84145; 84439; 84443; 84484; 85025; 85379; 85610; 85652; 86140; 87040; 93005; 93306; 93970; 96372; 96374; 99284; J0295; J0456; J1650; J1815; J1940; J2270; J3370; J7040; J7050; Q9967; U0003

== ENCOUNTER 2022-10-11 11:06 | Emergency (ER) | payer OTHER ==
--- OUTSIDE RECORDS SUMMARY | 2022-10-11 11:13 | XMS REPORT | Continuity of Care Document ---
:1965 Author Organization [facility] t Address [address] [facility]. [address] [place] [address] Care Team Providers Name Role Phone CARISA LIZARRAGA Primary Care Physician Unavailable MICHELLE SEYMOUR Attending Clinician Unavailable JASON CANTU Attending Clinician Unavailable Jason Cantu MD Attending Clinician Doctor Unassigned, Stepney Attending Clinician Unavailable MARGOT HERNANDEZ Attending Clinician Unavailable Margot Hernandez MD Attending Clinician SONIYA SANTO Attending Clinician Unavailable Leslie Bills Attending Clinician Soniya Santo MD Attending Clinician [phone] CARISA LIZARRAGA Attending Clinician Unavailable Carisa Butler Attending Clinician ABIGAIL SOUZA Attending Clinician Unavailable Abigail Souza MD Attending Clinician Alma Rosa Dorsey DO Attending Clinician Luis E Carter Attending Clinician Francisca ROSE, Nivia Becker Attending Clinician JASON CANTU Admitting Clinician Unavailable SONIYA SANTO Admitting Clinician Unavailable Domingo PADRON, Soniya Bradford Admitting Clinician [phone] CARISA LIZARRAGA Admitting Clinician Unavailable Payers Payer Name Policy Type Policy Number Effective Date Expiration Date 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 Added automatic ally from request for surgery [id number] Obesity Obesity Disease Active 2017-07 Univers (BMI (BMI 2-03 ity of 30-39.9) 30-39.9) 00:00: [place] 00 Medical Branch Need for Need for Disease Active Unive rs Tdap Tdap 4-28 ity of vaccinatio vaccinatio 00:00: [place] n n 00 Medical Branch Diabetes Diabetes Disease Active Overview: Un [place]yana mellitus mellitus 4-28 Formattin ity of type 2, type 2, 00:00: g of this [place] uncontroll uncontroll 00 note Me dical ed, ed, might be Branch 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 different complicati complicati from the ons ons original. 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 Acquired Acquired Disease Active Unive rs hypothyroi hypothyroi 4-28 it y of dism dism 00:00: [place] 00 Medical Branch History of History of Disease Active U nivers tubal tubal 11-24 ity of ligation ligation 00:00: Medical Branch Morbid Morbid Disease Active Univers obesity obesity 11-24 ity of 00:00: Medical Branch Genital Genital Disease Active Univers warts warts 11-24 ity of 00:00: Medical Branch Encounter Encounter Disease Active Overview: Univers for for 11-24 Formattin ity of routine routine 00:00: g of this [place] gynecologi gynecologi 00 note Me dical theron theron might be Branch examinatio examinatio different n n from the original. 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 Diabetes Diabetes Problem Active 2019-03-28 Memoria [...] nerve l nerve 02:03:10 l disease disease Juan Manuel (disorder) (disorder) Active Problem 03/28/2019 [facility] Allergies, Adverse Reactions, Alerts Allergy Allergy Status Severity Reaction(s) Onset Inactive Treating Comm ents Source Name Type Date Date Clinician PENICILL DRUG Active Rash 2020-07 Univers IN INGREDI 09-26 ity of 00:00: [place] 00 Medical Branch Penicill Propensi Active Rash 2020-07 Univer s in ty to 09-26 ity of adverse 00:00: [place] reaction 00 Medical s Branch NO KNOWN Drug Active Univers ALLERGIE Class ity of S [place] [facility] Social History Social Habit Start Date Stop Date Quantity Comments Source History [facility] University o f Alcohol Comment [place] Med ical Branch Exposure to 2021-07-23 2021-08-22 Not sure [facility]-CoV-2 00:00:00 09:04:00 [place] Medical (event) Branch History SDOH 2021-08-22 2021-08-22 1 University o f Alcohol Frequency 00:00:00 00:00:00 [place] M edical Branch History SDOH 2021-08-22 2021-08-22 1 University o f Alcohol Std 00:00:00 00:00:00 [place] Medical Drinks Branch History SDOH 2021-08-22 2021-08-22 1 University o f Alcohol Binge 00:00:00 00:00:00 [place] Medic al Branch History SDOH 2021-08-22 2021-08-22 5 University o f Stress 00:00:00 00:00:00 [place] [facility] History SDOH 2021-08-22 2021-08-22 1 University o f Financial 00:00:00 00:00:00 [place] [facility] History SDOH Food 2021-08-22 2021-08-22 1 Univers ity of Worry 00:00:00 00:00:00 [place] [facility] History SDOH Food 2021-08-22 2021-08-22 1 Univers ity of Scarcity 00:00:00 00:00:00 [place] [facility] History SDOH 2021-08-22 2021-08-22 2 University o f Transport Med 00:00:00 00:00:00 [place] Medic al Branch History SDOH 2021-08-22 2021-08-22 2 University o f Transport Non-Med 00:00:00 00:00:00 [place] M edical [facility] Alcohol intake 2021-08-13 2021-08-13 Current drinker Unive rsity of 00:00:00 00:00:00 of alcohol [place] Medical (finding) Branch Social History 2019-03-25 2019-03-25 [facility] 20:40:29 20:40:29 Sex [birth year] At [birth year] Universit y of 00:00:00 00:00:00 [place] [facility] Smoking Status Start Date Stop Date Source Never smoker [facility] Medical Branch Medications Ordered Filled Start Stop Current Ordering Indication Dosage Frequency Signature Comments Components Source Medication Medication Date Date Medication? Clinician (SIG) Name Name pantoprazol Yes 40mg Take 40 mg Univers e 1-24 by mouth ity of (PROTONIX) 09:46: daily. [place] 40 mg EC 15 Medical tablet Branch amLODIPine Yes 10mg Take 10 mg U nivers 10 mg 1-24 by mouth ity of tablet 09:46: daily. [address] metoprolol Yes 50mg Take 50 mg U nivers tartrate 50 1-24 by mouth 2 it y of mg tablet 09:46: (two) [place] 15 times Medical daily. Branch clopidogreL Yes 75mg Take 75 mg Univers (PLAVIX) 75 1-24 by mouth ity of mg tablet 09:46: daily. [address] atorvastati Yes 80mg Take 80 mg Univers n 80 mg 1-24 by mouth ity of tablet 09:46: at [place] 15 bedtime. Medical Branch iopamidol 2021- No [id number] 100mL 100 mL, Univers (ISOVUE 08-17 Intravenou [...] dose, On Branch Sun08/17/21 at 0400, Routine
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 atropine 2021-0 Yes 1[drp] 1 Drop, Univ ers (ISOPTO 1-16 Left Eye, ity of ATROPINE) 1 02:00: BID, First % 00 dose on Medical ophthalmic Sat [...] at 1700, Until Discontinu ed, Routine prednisoLON 2021-0 Yes 1[drp] 1 Drop, U nivers E acetate 1-15 Left Eye, ity o f (PRED-FORTE 22:00: QID, First [place] ) 1 % 00 dose on Medical ophthalmic Sat Branch suspension 08/13/21 at drops 1 1600, Drop Until Discontinu ed, Routine brimonidine 2021-0 Yes 1[drp] 1 Drop, U nivers (ALPHAGAN) 1-15 Left Eye, ity of 0.2 % 20:00: Q8H, First [place] ophthalmic 00 dose on Medica l solution 1 Sat Branch Drop 08/13/21 at 1400, Until Discontinu ed, Routine pantoprazol 2021-0 Yes 40mg Take 40 mg Univers e 02 by mouth ity of (PROTONIX) 06:19: daily. [place] 40 mg EC 05 Medical tablet Branch amLODIPine 2021-0 Yes 10mg Take 10 mg U nivers 10 mg 1-02 by mouth ity of tablet 06:19: daily. [place] [address] Medical Branch metoprolol 2021-0 Yes 50mg Take 50 mg U nivers tartrate 50 1-02 by mouth 2 it y of mg tablet 06:19: (two) [place] 05 times Medical daily. Branch clopidogreL 2-0 Yes 75mg Take 75 mg Univers (PLAVIX) 75 1-02 by mouth ity of mg tablet 06:19: daily. [place] [address] Medical Branch atorvastati 2021-0 Yes 80mg Take 80 mg Univers n 80 mg 1-02 by mouth ity of tablet 06:19: at [place] [address] bedtime. Medical Branch pantoprazol 2021-0 Yes 40mg Take 40 mg Univers e 1-02 by mouth ity of (PROTONIX) 06:19: daily. [place] 40 mg EC 05 Medical tablet Branch amLODIPine 2021-0 Yes 10mg Take 10 mg U nivers 10 mg 1-02 by mouth ity of tablet 06:19: daily. [place] [address] Medical Branch metoprolol 2021-0 Yes 50mg Take 50 mg U nivers tartrate 50 1-02 by mouth 2 it y of mg tablet 06:19: (two) [place] 05 times Medical daily. Branch clopidogreL 2021-0 Yes 75mg Take 75 mg Univers (PLAVIX) 75 1-02 by mouth ity of mg tablet 06:19: daily. [place] [address] Medical Branch atorvastati 2021-0 Yes 80mg Take 80 mg Univers n 80 mg 1-02 by mouth ity of tablet 06:19: at [place] [address] bedtime. Medical Branch pantoprazol 2-0 Yes 40mg Take 40 mg Univers e 1-02 by mouth ity of (PROTONIX) 06:19: daily. [place] 40 mg EC 05 Medical tablet Branch amLODIPine 2021-0 Yes 10mg Take 10 mg U nivers 10 mg 1-02 by mouth ity of tablet 06:19: daily. [place] [address] Medical Branch metoprolol 2-0 Yes 50mg Take 50 mg U nivers tartrate 50 1-02 by mouth 2 it y of mg tablet 06:19: (two) [place] 05 times Medical daily. Branch clopidogreL 2-0 Yes 75mg Take 75 mg Univers (PLAVIX) 75 1-02 by mouth ity of mg tablet 06:19: daily. [place] [facility] atorvastati Yes 80mg Take 80 mg Univers n 80 mg 07-31 by mouth ity of tablet 06:19: at [place] 05 bedtime. Medical Branch insulin NPH Yes 6U 6 Units, Un tatyana (HUMULIN N) 1- Subcutaneo it y of injection 6 03:00: us, [place] Units 00 QAM+HS, Medical First dose Branch (after last modificati on) on Sun07/29/21 at 2100, Until Discontinu ed, Routine insulin 2020-07 Yes 4U 4 Units, Univer s regular - Subcutaneo ity of human 23:30: us, BID [place] (HUMULIN R) 00 MEALS, Medica l injection [...] by mouth ity of (PROTONIX) 20:34: daily. [place] 40 mg Medical tablet Branch amLODIPine 2020-07 Yes 10mg Take 10 mg U nivers 10 mg 2-31 by mouth ity of tablet 20:34: daily. [place] [facility] metoprolol 2020-07 Yes 50mg Take 50 mg U nivers tartrate 50 2-31 by mouth 2 it y of mg tablet 20:34: (two) [place] 02 times Medical daily. Branch clopidogreL 2020-07 Yes 75mg Take 75 mg Univers (PLAVIX) 75 2-31 by mouth ity of mg tablet 20:34: daily. [place] [facility] atorvastati 2020-07 Yes 80mg Take 80 mg Univers n 80 mg 2-31 by mouth ity of tablet 20:34: at [place] bedtime. Medical Branch insulin NPH 2020-07 20U inject 20 Univers and regular 2-31 12-31 Units ity of human 70-30 18:32: 00:00 under the [place] (NOVOLIN 31 :00 skin 2 Medical 70/30 U-100 (two) Branch INSULIN) times 100 unit/mL daily (70-30) before injection breakfast and dinner. guaiFENesin 2020-07 Yes 200mg 200 mg, Un [place] 100 mg/5 mL Oral, Q6H, it y of solution 00:00: First dose [place] as 200 mg 00 (after Medical last Branch modificati on) on Jessica 07/28/21 at 1800, Until Discontinu ed, Routine artificial 2020-07- No [id number] 1[drp] Place 1 Univers tears, 11-27 Drop in ity of hypromellos 00:00: 04:59 both eyes [place] e, 0.3 % 00 :00 at bedtime Medic al ophthalmic for 120 Branch gel days. artificial 2020-07- No [id number] 1[drp] Place 1 Univers tears, 11-27 Drop in ity of hypromellos 00:00: 04:59 both eyes [place] e, 0.3 % 00 :00 at bedtime Medic al ophthalmic for 120 Branch gel days. artificial 2020-07- No [id number] 1[drp] Place 1 Univers tears, - Drop in ity of hypromellos 00:00: 04:59 both eyes [place] e, 0.3 % 00 :00 at bedtime Medic al ophthalmic for 120 Branch gel days. artificial 2020-07- No [id number] 1[drp] Place 1 Univers tears, 11-27 Drop in ity of hypromellos 00:00: 04:59 both eyes [place] e, 0.3 % 00 :00 at bedtime Medic al ophthalmic for 120 Branch gel days. latanoprost 2020-07- No [id number] 1[drp] Place 1 Univers 0.005 % 10-28 Drop in ity of ophthalmic 00:00: 04:59 left eye [place] drops 00 :00 at bedtime Medical for 90 Branch days. insulin NPH 2020-07- No [id number] 6U inject 6 Univers 100 unit/mL 10-28 Units ity of injection 00:00: 04:59 under the [place] 00 :00 skin every Medical morning Branch and at bedtime for 90 days. artificial 2020-07- No [id number] 1[drp] Place 1 Univers tears,hypro 10-28 Drop in ity of mellose, 00:00: 04:59 both eyes [place] as 0.5 % 00 :00 4 (four) Medical ophthalmic times Branch drops daily for 90 days. dorzolamide 2020-07- No [id number] 1[drp] Place 1 Univers -timoloL 10-28 Drop in ity of 22.3-6.8 00:00: 04:59 left eye 2 [place] mg/mL 00 :00 (two) Medical ophthalmic times Branch drops daily for 90 days. brimonidine 2020-07- No [id number] 1[drp] Place 1 Univers 0.2 % 10-28 Drop in ity of ophthalmic 00:00: 04:59 left eye [place] solution 00 :00 every 4 Medical (four) Branch hours for 90 days. insulin 2020-07- No [id number] 4U inject 4 Univers regular 10-28 Units ity of human 100 00:00: 04:59 under the [place] unit/mL 00 :00 skin 2 Medical injection (two) Branch times daily with meals for 90 days. latanoprost 2020-07- No [id number] 1[drp] Place 1 Univers 0.005 % 10-28 Drop in ity of ophthalmic 00:00: 04:59 left eye [place] drops 00 :00 at bedtime Medical for 90 Branch days. insulin NPH 2020-07- No [id number] 6U inject 6 Univers 100 unit/mL - Units ity of injection 00:00: 04:59 under the [place] 00 :00 skin every Medical morning Branch and at bedtime for 90 days. artificial 2020-07- No [id number] 1[drp] Place 1 Univers tears,hypro 10-28 Drop in ity of mellose, 00:00: 04:59 both eyes [place] as 0.5 % 00 :00 4 (four) Medical ophthalmic times Branch drops daily for 90 days. dorzolamide 2020-07- No [id number] 1[drp] Place 1 Univers -timoloL 10-28 Drop in ity of 22.3-6.8 00:00: 04:59 left eye 2 [place] mg/mL 00 :00 (two) Medical ophthalmic times Branch drops daily for 90 days. brimonidine 2020-07- No [id number] 1[drp] Place 1 Univers 0.2 % 10-28 Drop in ity of ophthalmic 00:00: 04:59 left eye [place] solution 00 :00 every 4 Medical (four) Branch hours for 90 days. insulin 2020-07- No [id number] 4U inject 4 Univers regular 10-28 Units ity of human 100 00:00: 04:59 under the [place] unit/mL 00 :00 skin 2 Medical injection (two) Branch times daily with meals for 90 days. latanoprost 2020-07- No [id number] 1[drp] Place 1 Univers 0.005 % 10-28 Drop in ity of ophthalmic 00:00: 04:59 left eye [place] drops 00 :00 at bedtime Medical for 90 Branch days. insulin NPH 2020-07- No [id number] 6U inject 6 Univers 100 unit/mL 10-28 Units ity of injection 00:00: 04:59 under the [place] 00 :00 skin every Medical morning Branch and at bedtime for 90 days. artificial 2020-07- No [id number] 1[drp] Place 1 Univers tears,hypro 10-28 Drop in ity of mellose, 00:00: 04:59 both eyes [place] 0.5 % 00 :00 4 (four) Medical ophthalmic times Branch drops daily for 90 days. dorzolamide 2020-07- No [id number] 1[drp] Place 1 Univers -timoloL 10-28 Drop in ity of 22.3-6.8 00:00: 04:59 left eye 2 [place] mg/mL 00 :00 (two) Medical ophthalmic times Branch drops daily for 90 days. brimonidine 2020-07- No [id number] 1[drp] Place 1 Univers 0.2 % 10-28 Drop in ity of ophthalmic 00:00: 04:59 left eye [place] solution 00 :00 every 4 Medical (four) Branch hours for 90 days. insulin 2020-07- No [id number] 4U inject 4 Univers regular 10-28 Units ity of human 100 00:00: 04:59 under the [place] unit/mL 00 :00 skin 2 Medical injection (two) Branch times daily with meals for 90 days. latanoprost 2020-07- No [id number] 1[drp] Place 1 Univers 0.005 % 10-28 Drop in ity of ophthalmic 00:00: 04:59 left eye [place] drops 00 :00 at bedtime Medical for 90 Branch days. insulin NPH 2020-07- No [id number] 6U inject 6 Univers 100 unit/mL 10-28 Units ity of injection 00:00: 04:59 under the [place] 00 :00 skin every Medical morning Branch and at bedtime for 90 days. artificial 2020-07- No [id number] 1[drp] Place 1 Univers tears,hypro 10-28 Drop in ity of mellose, 00:00: 04:59 both eyes [place] 0.5 % 00 :00 4 (four) Medical ophthalmic times Branch drops daily for 90 days. dorzolamide 2020-07- No [id number] 1[drp] Place 1 Univers -timoloL 10-28 Drop in ity of 22.3-6.8 00:00: 04:59 left eye 2 [place] mg/mL 00 :00 (two) Medical ophthalmic times Branch drops daily for 90 days. brimonidine 2020-07- No [id number] 1[drp] Place 1 Univers 0.2 % 10-28 Drop in ity of ophthalmic 00:00: 04:59 left eye [place] solution 00 :00 every 4 Medical (four) Branch hours for 90 days. insulin 2020-07- No [id number] 4U inject 4 Univers regular 2-31 04-01 Units ity of human 100 00:00: 04:59 under the [place] unit/mL 00 :00 skin 2 Medical injection (two) Branch times daily with meals for 90 days. meclizine 2020-07 25mg 25 mg, Unive rs (TRAVEL-EAS 07-29 Oral, ity of E 23:57: 01:58 ONCE, 1 [place] (MECLIZINE) 00 :00 dose, On Medi theron ) tablet 25 [place] Branch mg 07/28/21 at 1800, Routine Sliding 2020-07 Yes Subcutaneo Univ ers Scale 2-30 us, AC+HS, ity of Insulin-Reg 22:30: First dose [place] ular + Fsbg 00 on [place] Medica l Testing 07/28/21 Branch at 1630, Until Discontinu ed, Routine insulin 2020-07 No 7U 7 Units, Unive rs regular 07-29 Subcutaneo ity o f human 17:45: 23:16 us, BID [place] (HUMULIN R) 00 :16 MEALS, Medica l injection 7 First dose Br anch Units on [place] 07/28/21 at 1145, Until Discontinu ed, Routine glucagon 2020-07 Yes 1mg 1 mg, Univers (GLUCAGEN 230 Intramuscu ity of DIAGNOSTIC 17:41: lar, PRN, [...] or has mental status changes. insulin NPH 2020-07 No 7U 7 Units, U nivers (HUMULIN N) 07-29 Subcutaneo i ty of injection 7 16:00: 23:16 us, [place] Units 00 :16 QAM+HS, Medical First dose Branch on Sun07/28/21 at 1000, Until Discontinu ed, Routine levothyroxi 2020-07 No 50ug 50 mcg, Un [place] ne 207-28 Oral, ity of (SYNTHROID) 12:00: 11:21 QAM-0600, [place] tablet 50 00 :00 1 dose, Medical mcg First dose Branch on Sun07/28/21 at 0600, Routine artificial 2020-07 Yes 1[drp] 1 Drop, Un [place] tears 230 Both Eyes, ity of (hypromello 03:00: QHS, First [place] se) 00 dose on Medical (GENTEAL Sun Branch TEARS 07/27/21 SEVERE GEL) at 2100, 0.3 % Until ophthalmic Discontinu gel 1 Drop ed, Routine latanoprost 2020-07 Yes 1[drp] 1 Drop, U nivers (XALATAN) Left Eye, ity o f 0.005 % 03:00: [facility] on Medica l drops 1 Wed Branch Drop 07/27/21 at 2100, Until Discontinu ed, Routine furosemide 2020-07 No 40mg 40 mg, Univ ers (LASIX) 07-29 Slow IV ity of injection 02:00: 14:26 Push, [place] 40 mg 00 :07 Q12H, Medical First dose Branch (after last modificati on) on Sun07/27/21 at 2000, Until Discontinu ed, Routine acetaZOLAMI 2020-07- No [...] :21 dose on Medica l solution 1 Wed Branch Drop 07/27/21 at 1900, Until Discontinu ed, Routine gadoteridol 2020-07- No [id number] .2mL/kg 16.32 mL Univers (PROHANCE-2 07-27 (0.2 mL/kg i ty of 0 mL) 21:45: 21:45 ?81.6 kg), [place] injection 00 :00 Intravenou Medi theron 16.32 mL s, ONCE, 1 Branc h dose, On Sun07/27/21 at 1545, Routine sulfur 2020-07- No [id number] 5mL 5 mL, Univ ers hexafluorid 07-27 Intravenou i ty of e microsphr 19:15: 19:15 s, ONCE, 1 [place] (LUMASON) 00 :00 dose, On Medica l injection 5 Sun Branch mL 07/27/21 at 1315, Routine
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 Restricted medication : DONY SARAVIA LORazepam 2020-07- No .5mg 0.5 mg, Univ ers (ATIVAN) 07-27 Oral, ity of tablet 0.5 17:30: 19:53 ONCE, 1 [place] mg 00 :00 dose, On Medical Sun07/27/21 at 1130, Routine enoxaparin 2020-07 Yes 40mg 40 mg, Unive rs (LOVENOX) Subcutaneo ity of injection 15:00: us, DAILY, [place] 40 mg 00 First dose Medical on Sun Branch 07/27/21 at 0900, Until Discontinu ed, Routine pantoprazol 2020-07 Yes 40mg 40 mg, Univ ers e Oral, ity of (PROTONIX) 15:00: DAILY, [place] EC tablet 00 First dose Medi theron 40 mg on Sun07/27/21 at 0900, Until Discontinu ed, Routine clopidogreL [...] on Medic al RS) 0.5 % [place] ophthalmic 07/27/21 drops 1 at 0800, Drop Until Discontinu ed, Routine dorzolamide 2020-07 Yes 1[drp] 1 Drop, U nivers -timoloL Left Eye, ity of (COSOPT) 14:00: BID, First [place] as 22.3-6.8 00 dose on Medical mg/mL [place] ophthalmic 07/27/21 drops 1 at 0800, Drop Until Discontinu ed, Routine brimonidine 2020-07- No 1[drp] 1 Drop, Univers (ALPHAGAN) 07-28 Left Eye, ity of 0.2 % 12:00: 00:01 Q8H, First [place] ophthalmic 00 :35 dose on Medica l solution 1 [facility] Drop 07/27/21 at 0600, Until Discontinu ed, Routine guaiFENesin 2020-07 No 200mg 200 mg, U nivers 100 mg/5 mL 07-28 Oral, Q6H, i ty of solution 06:00: 18:57 First dose [place] 200 mg 00 :[address] [facility] Medical 07/27/21 Branch at 0000, Until Discontinu ed, Routine magnesium 2020-07 No 4g 4 g, IV Univ ers sulfate in 07-27 Piggyback, it y of water 4 04:30: 05:32 ONCE, 1 [place] gram/50 mL 00 :00 dose, On Medic al (8 %) IV Tue Branch Piggyback 4 07/26/21 g at 2230, Routine atorvastati 2020-07 Yes 80mg 80 mg, Univ ers n (LIPITOR) 2-29 Oral, QHS, it y of tablet 80 03:00: First dose [place] mg 00 on [facility] 07/26/21 Branch at 2100, Until Discontinu ed, Routine Sliding 2020-07 Subcutaneo Uni vers Scale 2-29 12 us, TID ity of Insulin - 03:00: 17:42 MEALS+HS, [place] Lispro 00 :21 First dose Medical (HumaLOG) + on [facility] Fsbg 07/26/21 Testing at 2100, Until Discontinu ed, Routine benzonatate 2020-07 Yes 200mg 200 mg, Un [place] (TESSALON 2-29 Oral, TID, ity of PERLES) 02:00: First dose [place] capsule 200 00 on [facility] Medica l mg 07/26/21 Branch at 1999, Until Discontinu ed, Routine metoprolol 2020-07 Yes 50mg 50 mg, Unive rs tartrate 2-29 Oral, BID, ity o f (LOPRESSOR) 02:00: First dose [place] tablet 50 00 on [facility] mg 07/26/21 Branch at 1999, Until Discontinu ed, Routine gabapentin 2020-07 Yes 300mg 300 mg, Uni vers (NEURONTIN) 2-29 Oral, TID, it y of capsule 300 02:00: First dose [place] mg 00 on [facility] 07/26/21 Branch at 2000, Until Discontinu ed, Routine glucagon 2020-07 Yes 1mg 1 mg, Univers (GLUCAGEN 2- Intramuscu ity of DIAGNOSTIC 01:54: lar, PRN, [place] KIT) 31 Starting Medical injection 1 on [facility] mg 07/26/21 at 1953, Until Discontinu ed, REGAN, Blood Glucose < or = 70 mg/dL and patient is unable to swallow or has mental changes. dextrose 50 2020-07 Yes 25mL 25 mL, Univ ers % in water 2-29 Slow IV ity of (D50W) 01:54: Push, PRN, [place] injection 31 Starting Medica l 25 mL on [facility] 07/26/21 at 1954, Until Discontinu ed, REGAN, Blood Glucose < or = 70 mg/dL and patient is unable to swallow or has mental status changes. furosemide 2021-1 2021- No 20mg 20 mg, Univ ers (LASIX) 07-27 Slow IV ity of injection 01:40: 01:50 Push, [place] 20 mg 00 :00 ONCE, 1 Medical dose, On Branch [facility] 07/26/21 at 1945, Routine acetaminoph 2020-07 Yes 650mg 650 mg, Un tatyana en Oral, ity of (TYLENOL) 00:52: Q6HPRN, [place] tablet 650 38 Starting Medic al mg on [facility] 07/26/21 at 1852, Until Discontinu ed, Routine, Pain (scale 1-3) ipratropium 2020-07 Yes 3mL 3 mL, Unive rs -albuteroL Inhalation ity of (DUONEB) 00:47: , Q6HPRN, [place] 0.5 mg-3 21 Starting Medical mg(2.5 mg on [facility] base)/3 mL 07/26/21 nebulizer at 1847, solution 3 Until mL Discontinu ed, Routine, Wheezing, Shortness of Breath amLODIPine 2020-07 Yes 10mg 10 mg, Unive rs (NORVASC) Oral, ity of tablet 10 00:30: DAILY, [place] mg 00 First dose Medical on [facility] 07/26/21 at 1830, Until Discontinu ed, Routine sotrovimab 2020-07- No 500mg 500 mg, IV Univers (XEVUDY) 07-27 Infusion, ity o f 500 mg in 00:15: 02:21 ONCE, Mannie NaCl 0.9% 00 :00 Administer Medi theron (NS) 50 mL over 30 Branch MINI-BAG Minutes, On [facility] 07/26/21 at 1815, For [address] able 24 hours refrigerat ed or 6 hours at room temperatur e including transporta tion and infusion time.
clopidogreL 2020-07- No 75mg 75 mg, Uni vers (PLAVIX) 07-27 Oral, ONCE ity of tablet 75 00:05: 01:52 NOW, 1 [place] mg 00 :00 dose, On Medical [facility] 07/26/21 at 1815, Routine aspirin 2020-07- No 81mg 81 mg, Univers chewable 07-27 Oral, ONCE ity of tablet 81 00:05: 01:50 NOW, 1 [place] mg 00 :00 dose, On Medical Tue Branch 07/26/21 at 1815, Routine NaCl 0.9% 2020-07 1000mL at 999 Uni vers (NS) bolus 09-26 mL/hr, ity of infusion 19:15: 20:48 1,000 mL, [place] 1,000 mL 00 :00 IV Medical Infusion, Branch ONCE, 1 dose, On 07/26/21 at 1315, REGAN lisinopriL 2020-07 Yes [id number] 20mg Take 1 U nivers 20 mg 1-11 tablet by ity of tablet 00:00: mouth [place] 00 daily. Medical Branch metoprolol 2020-07 Yes [id number] 25mg Take 1 U nivers succinate 1-11 tablet by ity o f XL 25 mg 24 00:00: mouth [place] hr tablet 00 every Medical evening. Branch gabapentin 2020-07 Yes [id number] 300mg Take 1 Univers 300 mg 1-11 capsule by ity of capsule 00:00: mouth 3 [place] 00 (three) Medical times Branch daily. glipiZIDE 2020-07 Yes [id number] 10mg Take 1 Un tatyana 10 mg 1-11 tablet by ity of tablet 00:00: mouth 2 [place] 00 (two) Medical times Branch daily before breakfast and dinner. lisinopriL 2020-07 Yes [id number] 20mg Take 1 U nivers 20 mg 1-11 tablet by ity of tablet 00:00: mouth [place] 00 daily. Medical Branch metoprolol 2020-07 Yes [id number] 25mg Take 1 U nivers succinate 1-11 tablet by ity o f XL 25 mg 24 00:00: mouth [place] hr tablet 00 every Medical evening. Branch gabapentin 2020-07 Yes [id number] 300mg Take 1 Univers 300 mg 1-11 capsule by ity of capsule 00:00: mouth 3 [place] 00 (three) Medical times Branch daily. glipiZIDE 2020-07 Yes [id number] 10mg Take 1 Un [place] 10 mg 1-11 tablet by ity of tablet 00:00: mouth 2 [place] 00 (two) Medical times Branch daily before breakfast and dinner. lisinopriL 2020-07 Yes [id number] 20mg Take 1 U nivers 20 mg 1-11 tablet by ity of tablet 00:00: mouth [place] 00 daily. Medical Branch metoprolol 2020-07 Yes [id number] 25mg Take 1 U nivers succinate 1-11 tablet by ity o f XL 25 mg 24 00:00: mouth [place] hr tablet 00 every Medical evening. Branch gabapentin 2020-07 Yes [id number] 300mg Take 1 Univers 300 mg 1-11 capsule by ity of capsule 00:00: mouth 3 00 (three) Medical times Branch daily. glipiZIDE 2020-07 Yes [id number] 10mg Take 1 Un [place] 10 mg 1-11 tablet by ity of tablet 00:00: mouth 2 00 (two) Medical times Branch daily before breakfast and dinner. lisinopriL 2020-07 Yes [id number] 20mg Take 1 U nivers 20 mg 1-11 tablet by ity of tablet 00:00: mouth [place] 00 daily. Medical Branch metoprolol 2020-07 Yes [id number] 25mg Take 1 U nivers succinate 1-11 tablet by ity o f XL 25 mg 24 00:00: mouth [place] hr tablet 00 every Medical evening. Branch gabapentin 2020-07 Yes [id number] 300mg Take 1 Univers 300 mg 1-11 capsule by ity of capsule 00:00: mouth 3 (three) Medical times Branch daily. glipiZIDE 2020-07 Yes [id number] 10mg Take 1 Un [place] 10 mg 1-11 tablet by ity of tablet 00:00: mouth 2 00 (two) Medical times Branch daily before breakfast and dinner. gabapentin 2020-07 Yes [id number] 300mg Take 1 [facility] 300 mg 1-11 capsule by ity of capsule 00:00: mouth 3 (three) Medical times Branch daily. gabapentin 2020-07 Yes [id number] 300mg Take 1 [facility] 300 mg 1-11 capsule by ity of capsule 00:00: mouth 3 (three) Medical times Branch daily. gabapentin 2020-07 Yes [id number] 300mg Take 1 [facility] 300 mg 1-11 capsule by ity of capsule 00:00: mouth 3 (three) Medical times Branch daily. gabapentin 2020-07 Yes [id number] 300mg Take 1 [facility] 300 mg 1-11 capsule by ity of capsule 00:00: mouth 3 [place] 00 (three) Medical times Branch daily. gabapentin 2020-07 Yes [id number] 300mg Take 1 [facility] 300 mg 08-09 capsule by ity of capsule 00:00: mouth 3 00 (three) Medical times Branch daily. lisinopriL 2020-07- No [id number] 20mg Take 1 Univers 20 mg 08-09 tablet by ity of tablet 00:00: 00:00 mouth [place] 00 :00 daily. Medical Branch metoprolol 2020-07- No [id number] 25mg Take 1 Univers succinate 08-09 tablet by ity of XL 25 mg 24 00:00: 00:00 [place] hr tablet 00 :00 every Medical evening. Branch glipiZIDE 2020-07- No [id number] 10mg Take 1 U nivers 10 mg 08-09 tablet by ity of tablet 00:00: 00:00 mouth 2 [place] 00 :00 (two) Medical times Branch daily before breakfast and dinner. albuterol 2020-07 Yes [id number] 2{puff} Inhale 2 Univers 90 1-07 Puffs ity of mcg/actuati 00:00: every 4 [place] on inhaler 00 (four) Medical hours as Branch needed for Wheezing or Shortness of Breath. methylPREDN 2020-07 Yes [id number] Take by Univers ISolone 4 1-07 mouth ity of mg tablets 00:00: SEE-INSTRU [place] 00 CTIONS. Medical follow Branch package directions benzonatate 2020-07 Yes [id number] 100mg Take 1 [facility] 100 mg 1-07 capsule by ity of capsule 00:00: mouth 3 [place] (three) Medical times Branch daily as needed for Cough. albuterol 2020-07 Yes [id number] 2{puff} Inhale 2 Univers 90 1-07 Puffs ity of mcg/actuati 00:00: every 4 [place] on inhaler 00 (four) Medical hours as Branch needed for Wheezing or Shortness of Breath. methylPREDN 2020-07 Yes [id number] Take by Univers ISolone 4 1-07 mouth ity of mg tablets 00:00: SEE-INSTRU [place] 00 CTIONS. Medical follow Branch package directions benzonatate 2020-07 Yes [id number] 100mg Take 1 [facility] 100 mg 1-07 capsule by ity of capsule 00:00: mouth 3 (three) Medical times Branch daily as needed for Cough. albuterol 2020-07 Yes [id number] 2{puff} Inhale 2 Univers 90 1-07 Puffs ity of mcg/actuati 00:00: every 4 [place] on inhaler 00 (four) Medical hours as Branch needed for Wheezing or Shortness of Breath. methylPREDN 2020-07 Yes [id number] Take by Univers ISolone 4 1-07 mouth ity of mg tablets 00:00: SEE-INSTRU [place] 00 CTIONS. Medical follow Branch package directions benzonatate 2020-07 Yes [id number] 100mg Take 1 [facility] 100 mg 1-07 capsule by ity of capsule 00:00: mouth 3 (three) Medical times Branch daily as needed for Cough. albuterol 2020-07 Yes [id number] 2{puff} Inhale 2 Univers 90 1-07 Puffs ity of mcg/actuati 00:00: every 4 [place] on inhaler 00 (four) Medical hours as Branch needed for Wheezing or Shortness of Breath. methylPREDN 2020-07 Yes [id number] Take by Univers ISolone 4 1-07 mouth ity of mg tablets 00:00: SEE-INSTRU [place] 00 CTIONS. Medical follow Branch package directions benzonatate 2020-07 Yes [id number] 100mg Take 1 [facility] 100 mg 1-07 capsule by ity of capsule 00:00: mouth 3 (three) Medical times Branch daily as needed for Cough. albuterol 2020-07 Yes [id number] 2{puff} Inhale 2 Univers 90 1-07 Puffs ity of mcg/actuati 00:00: every 4 [place] on inhaler 00 (four) Medical hours as Branch needed for Wheezing or Shortness of Breath. albuterol 2020-07 Yes [id number] 2{puff} Inhale 2 Univers 90 1-07 Puffs ity of mcg/actuati 00:00: every 4 [place] on inhaler 00 (four) Medical hours as Branch needed for Wheezing or Shortness of Breath. albuterol 2020-07 Yes [id number] 2{puff} Inhale 2 Univers 90 1-07 Puffs ity of mcg/actuati 00:00: every 4 [place] on inhaler 00 (four) Medical hours as Branch needed for Wheezing or Shortness of Breath. albuterol 2020-07 Yes [id number] 2{puff} Inhale 2 Univers 90 1-07 Puffs ity of mcg/actuati 00:00: every 4 [place] on inhaler 00 (four) Medical hours as Branch needed for Wheezing or Shortness of Breath. albuterol 2020-07 Yes [id number] 2{puff} Inhale 2 Univers 90 1-07 Puffs ity of mcg/actuati 00:00: every 4 [place] on inhaler 00 (four) Medical hours as Branch needed for Wheezing or Shortness of Breath. methylPREDN 2020-07- No [id number] Take by Univers ISolone 4 08-05- mouth ity of mg tablets 00:00: 00:00 SEE-INSTRU [place] 00 :00 CTIONS. Medical follow Branch package directions benzonatate 2020-07- No [id number] 100mg Take 1 Univers 100 mg 08-05 capsule by ity of capsule 00:00: 00:00 mouth 3 [place] 00 :00 (three) Medical times Branch daily as needed for Cough. doxycycline 2020-07- No [id number] 100mg Take 1 Univers hyclate 100 08-0518 capsule by i ty of mg capsule 00:00: 05:59 mouth 2 [place] 00 :00 (two) Medical times Branch daily for 10 days. doxycycline 2020-07- No [id number] 100mg Take 1 Univers hyclate 100 08-0518 capsule by i ty of mg capsule 00:00: 05:59 mouth 2 [place] 00 :00 (two) Medical times Branch daily for 10 days. Livalo Yes 4 mg, PO, Memori a 8-27 Daily, 0 l 20:33: Refill(s) Metformin 2018-0 Yes 1,000 mg, Mem oria 8-27 PO, BID, 0 l 20:33: Refill(s) metoprolol Yes 25 mg, PO, M emoria tartrate 8-27 Daily, 0 l 20:33: Refill(s) Lyrica Yes 150 mg, Memoria 8-27 PO, BID, 0 l 20:33: Refill(s) Juan Manuel 00 Glipizide 0 Yes 10 mg, PO, Me moria 8-27 BID, 0 l 20:33: Refill(s) Livalo 0 Yes 4 mg, PO, Memori a 8-27 Daily, 0 l 20:33: Refill(s) Metformin 2018-0 Yes 1,000 mg, Mem oria 8-27 PO, BID, 0 l 20:33: Refill(s) metoprolol 0 Yes 25 mg, PO, M emoria tartrate 8-27 Daily, 0 l 20:33: Refill(s) Lyrica 0 Yes 150 mg, Memoria 8-27 PO, BID, 0 l 20:33: Refill(s) Glipizide Yes 10 mg, PO, Me moria 8-27 BID, 0 l 20:33: Refill(s) Livalo 0 Yes 4 mg, PO, Memori a 8-27 Daily, 0 l 20:33: Refill(s) Metformin 0 Yes 1,000 mg, Mem oria 8-27 PO, BID, 0 l 20:33: Refill(s) metoprolol 0 Yes 25 mg, PO, M emoria tartrate 8-27 Daily, 0 l 20:33: Refill(s) Lyrica 0 Yes 150 mg, Memoria 8-27 PO, BID, 0 l 20:33: Refill(s) Glipizide 0 Yes 10 mg, PO, Me moria 8-27 BID, 0 l 20:33: Refill(s) Livalo 0 Yes 4 mg, PO, Memori a 8-27 Daily, 0 l 20:33: Refill(s) metoprolol 0 Yes 25 mg, PO, M emoria tartrate 8-27 Daily, 0 l 20:33: Refill(s) Lyrica 0 Yes 150 mg, Memoria 8-27 PO, BID, 0 l 20:33: Refill(s) Metformin 0 Yes 1,000 mg, Mem oria 8-27 PO, BID, 0 l 20:33: Refill(s) Glipizide Yes 10 mg, PO, Me moria 8-27 BID, 0 l 20:33: Refill(s) Livalo Yes 4 mg, PO, Memori a 8-27 Daily, 0 l 20:33: Refill(s) Metformin Yes 1,000 mg, Mem oria 8-27 PO, BID, 0 l 20:33: Refill(s) metoprolol Yes 25 mg, PO, M emoria tartrate 8-27 Daily, 0 l 20:33: Refill(s) Lyrica Yes 150 mg, Memoria 8-27 PO, BID, 0 l 20:33: Refill(s) Glipizide Yes 10 mg, PO, Me moria 8-27 BID, 0 l 20:33: Refill(s) lisinopril 2020- No [id number] 20mg Take 1 Univers 20 mg 5-23 11-11 tablet by ity of tablet 00:00: 00:00 mouth [place] 00 :00 daily. Medical Branch metoprolol 2020- No [id number] 25mg Take 1 Univers succinate 5-23 11-11 tablet by ity of XL 25 mg 24 00:00: 00:00 mouth [place] hr tablet 00 :00 every Medical evening. Branch lisinopril 2020- No [id number] 20mg Take 1 Univers 20 mg 5-23 11-11 tablet by ity of tablet 00:00: 00:00 mouth [place] 00 :00 daily. Medical Branch metoprolol 2020- No [id number] 25mg Take 1 [facility] succinate 5-23 11-11 tablet by ity of XL 25 mg 24 00:00: 00:00 mouth [place] hr tablet 00 :00 every Medical evening. Branch prednisoLON Yes [id number] 1[drp] Place 1 Univers E acetate 1 5- 9103 Drop in ity o f % 00:00: right eye [place] ophthalmic 00 4 (four) Medic al suspension times Branch drops daily. tobramycin Yes [id number] 1[drp] Place 1 Univers 0.3 % 5-21 9103 Drop in ity of ophthalmic 00:00: right eye [place] drops 00 4 (four) Medical times Branch daily. prednisoLON Yes [id number] 1[drp] Place 1 Univers E acetate 1 5-21 9103 Drop in ity o f % 00:00: right eye [place] ophthalmic 00 4 (four) Medic al suspension times Branch drops daily. tobramycin Yes [id number] 1[drp] Place 1 Univers 0.3 % 5-21 9103 Drop in ity of ophthalmic 00:00: right eye [place] drops 00 4 (four) Medical times Branch daily. prednisoLON Yes [id number] 1[drp] Place 1 Univers E acetate 1 5-21 9103 Drop in ity o f % 00:00: right eye [place] ophthalmic 00 4 (four) Medic al suspension times Branch drops daily. tobramycin Yes [id number] 1[drp] Place 1 Univers 0.3 % 5-21 9103 Drop in ity of ophthalmic 00:00: right eye [place] drops 00 4 (four) Medical times Branch daily. prednisoLON Yes [id number] 1[drp] Place 1 Univers E acetate 1 5-21 9103 Drop in ity o f % 00:00: right eye [place] ophthalmic 00 4 (four) Medic al suspension times Branch drops daily. tobramycin Yes [id number] 1[drp] Place 1 Univers 0.3 % 5-21 9103 Drop in ity of ophthalmic 00:00: right eye [place] drops 00 4 (four) Medical times Branch daily. prednisoLON 2020- No [id number] 1[drp] Place 1 Univers E acetate 1 5-21 12-28 9103 Drop in ity of % 00:00: 00:00 right eye [place] ophthalmic 00 :00 4 (four) Medic al suspension times Branch drops daily. tobramycin 2020- No [id number] 1[drp] Place 1 Univers 0.3 % 5-21 12-28 9103 Drop in ity of ophthalmic 00:00: 00:00 right eye [place] drops 00 :00 4 (four) Medical times Branch daily. gabapentin 2020- No [id number] 300mg Take 1 [facility] 300 mg 12-05 capsule by ity of capsule 00:00: 00:00 mouth 3 [place] 00 :00 (three) Medical times Branch daily. gabapentin 2020- No [id number] 300mg Take 1 [facility] 300 mg 12-05 capsule by ity of capsule 00:00: 00:00 mouth 3 [place] 00 :00 (three) Medical times Branch daily. GLIPIZIDE Yes [id number] TAKE 1 U nivers 10 mg 4-18 TABLET BY ity of tablet 00:00: MOUTH [place] 00 TWICE Medical DAILY Branch BEFORE BREAKFAST AND DINNER GLIPIZIDE Yes [id number] TAKE 1 U nivers 10 mg 4-18 TABLET BY ity of tablet 00:00: MOUTH [place] 00 TWICE Medical DAILY Branch BEFORE BREAKFAST AND DINNER GLIPIZIDE Yes [id number] TAKE 1 U nivers 10 mg 4-18 TABLET BY ity of tablet 00:00: MOUTH [place] 00 TWICE Medical DAILY Branch BEFORE BREAKFAST AND DINNER GLIPIZIDE Yes [id number] TAKE 1 U nivers 10 mg 4-18 TABLET BY ity of tablet 00:00: MOUTH [place] 00 TWICE Medical DAILY Branch BEFORE BREAKFAST AND DINNER GLIPIZIDE 2020- No [id number] TAKE 1 Univers 10 mg 4-18 12-28 TABLET BY ity of tablet 00:00: 00:00 MOUTH [place] 00 :00 TWICE Medical DAILY Branch BEFORE BREAKFAST AND DINNER glipiZIDE 2020- No [id number] 10mg Take 1 Univers 10 mg 3-11 11-11 tablet by ity of tablet 00:00: 00:00 mouth 2 [place] 00 :00 (two) Medical times Branch daily before breakfast and dinner. glipiZIDE 2020- No [id number] 10mg Take 1 Univers 10 mg 3-11 11-11 tablet by ity of tablet 00:00: 00:00 mouth 2 [place] 00 :00 (two) Medical times Branch daily before breakfast and dinner. aspirin 81 Yes 81mg Take 1 Unive [...] mouth [place] 00 daily. Medical Branch acetaminoph 2015- Yes 2{tbl} Take 2 Un tatyana en-codeine [...] as needed for Pain (scale 4-6). acetaminoph 2015-0 Yes 2{tbl} Take 2 Un tatyana en-codeine 3-07 Tabs by ity of (TYLENOL 00:00: mouth [place] #3) 300-30 00 every 6 Medica l mg tablet (six) Branch hours as needed for Pain (scale 4-6). acetaminoph 2015-0 Yes 2{tbl} Take 2 Un tatyana en-codeine [...] Dose 2021-05-04 Completed Unive rsity of 00:00:00 [facility] DTAP 2021-05-04 Completed University of 00:00:00 [facility] Influenza High Dose 2021-05-04 Completed Unive rsity of 00:00:00 [facility] DTAP 2021-05-04 Completed University of 00:00:00 [facility] Influenza High Dose 2021-05-04 Completed Unive rsity of 00:00:00 [facility] DTAP 2021-05-04 Completed University of 00:00:00 [facility] Influenza High Dose 2021-05-04 Completed Unive rsity of 00:00:00 [facility] DTAP 2021-05-04 Completed University of 00:00:00 [facility] Influenza High Dose 2021-05-04 Completed Unive rsity of 00:00:00 [facility] DTAP 2021-05-04 Completed University of 00:00:00 [facility] Influenza High Dose 2021-05-04 Completed Unive rsity of 00:00:00 [facility] DTAP 2021-05-04 Completed University of 00:00:00 [facility] Influenza High Dose 2021-05-04 Completed Unive rsity of 00:00:00 [facility] DTAP 2021-05-04 Completed University of 00:00:00 [facility] Influenza High Dose 2021-05-04 Completed Unive rsity of 00:00:00 [facility] DTAP 2021-05-04 Completed University of 00:00:00 [facility] Influenza High Dose 2021-05-04 Completed Unive rsity of 00:00:00 [facility] DTAP 2021-05-04 Completed University of 00:00:00 [facility] SARS-COV-2 COVID-19 2021-04-28 Completed Unive rsity of PFIZER VACCINE 00:00:00 [facility] SARS-COV-2 COVID-19 2021-04-28 Completed Unive rsity of PFIZER VACCINE 00:00:00 [facility] SARS-COV-2 COVID-19 2021-04-28 Completed Unive rsity of PFIZER VACCINE 00:00:00 [facility] SARS-COV-2 COVID-19 2021-04-28 Completed Unive rsity of PFIZER VACCINE 00:00:00 [facility] SARS-COV-2 COVID-19 2021-04-28 Completed Unive rsity of PFIZER VACCINE 00:00:00 [facility] SARS-COV-2 COVID-19 2021-04-28 Completed Unive rsity of PFIZER VACCINE 00:00:00 [facility] SARS-COV-2 COVID-19 2021-04-28 Completed Unive rsity of PFIZER VACCINE 00:00:00 [facility] SARS-COV-2 COVID-19 2021-04-28 Completed Unive rsity of PFIZER VACCINE 00:00:00 [facility] SARS-COV-2 COVID-19 2021-04-28 Completed Unive rsity of PFIZER VACCINE 00:00:00 [facility] SARS-COV-2 COVID-19 2021-04-07 Completed Unive rsity of PFIZER VACCINE 00:00:00 [facility] SARS-COV-2 COVID-19 2021-04-07 Completed Unive rsity of PFIZER VACCINE 00:00:00 [facility] SARS-COV-2 COVID-19 2021-04-07 Completed Unive rsity of PFIZER VACCINE 00:00:00 [facility] SARS-COV-2 COVID-19 2021-04-07 Completed Unive rsity of PFIZER VACCINE 00:00:00 [facility] SARS-COV-2 COVID-19 2021-04-07 Completed Unive rsity of PFIZER VACCINE 00:00:00 [facility] SARS-COV-2 COVID-19 2021-04-07 Completed Unive rsity of PFIZER VACCINE 00:00:00 [facility] SARS-COV-2 COVID-19 2021-04-07 Completed Unive rsity of PFIZER VACCINE 00:00:00 [facility] SARS-COV-2 COVID-19 2021-04-07 Completed Unive rsity of PFIZER VACCINE 00:00:00 [facility] SARS-COV-2 COVID-19 2021-04-07 Completed Unive rsity of PFIZER VACCINE 00:00:00 [facility] Vital Signs Vital Name Observation Time Observation Value Comments Source Systolic blood 2021-08-17 11:30:00 134 mm[Hg] Univer sity of pressure [facility] Diastolic blood 2021-08-17 11:30:00 75 mm[Hg] Unive rsity of pressure [facility] Heart rate 2021-08-17 11:30:00 87 /min Universi ty of [facility] Respiratory rate 2021-08-17 11:30:00 16 /min Univ ersity of [facility] Oxygen saturation in 2021-08-17 11:30:00 97 /min University of Arterial blood by [facility] Pulse oximetry Branch Body temperature 2021-08-17 08:17:00 36.72 [place] Univ ersity of [facility] Body height 2021-08-17 08:17:00 152.4 cm Universi ty of [facility] Body weight 2021-08-17 08:17:00 77.111 kg Universi ty [facility] BMI 2021-08-17 08:17:00 33.20 kg/m2 Universi ty [facility] Systolic blood 2021-08-13 19:35:00 179 mm[Hg] Univer sity of pressure [facility] Diastolic blood 2021-08-13 19:35:00 89 mm[Hg] Unive rsity of pressure [facility] Heart rate 2021-08-13 19:35:00 83 /min Universi ty of [facility] Respiratory rate 2021-08-13 19:35:00 18 /min Univ ersity of [facility] Oxygen saturation in 2021-08-13 19:35:00 98 /min University of Arterial blood by [facility] Pulse oximetry Branch Body weight 2021-08-13 17:00:00 81.6 kg Universi ty of [facility] BMI 2021-08-13 17:00:00 35.13 kg/m2 Universi ty of [place] [facility] Body temperature 2021-08-13 15:33:00 37 [place] Univ ersity of [place] [facility] Systolic blood 2021-07-29 21:37:00 127 mm[Hg] Univer sity of pressure [place] [facility] Diastolic blood 2021-07-29 21:37:00 66 mm[Hg] Unive rsity of pressure [place] [facility] Oxygen saturation in 2021-07-29 21:37:00 100 /min University of Arterial blood by [employer] Pulse oximetry Branch Heart rate 2021-07-29 21:33:00 56 /min Universi ty of [place] [facility] Body temperature 2021-07-29 21:33:00 35.94 [place] Univ ersity of [place] [facility] Respiratory rate 2021-07-29 21:33:00 16 /min Univ ersity of [place] [facility] Body height 2021-07-27 05:46:00 152.4 cm Universi ty of [place] [facility] Body weight 2021-07-26 17:47:00 81.647 kg Universi ty of [place] [facility] BMI 2021-07-26 17:47:00 35.15 kg/m2 [facility]i ty of [place] [facility] Systolic blood 2021-06-09 16:51:00 108 mm[Hg] Univer sity of pressure [place] [facility] Diastolic blood 2021-06-09 16:51:00 83 mm[Hg] Unive rsity of pressure [place] [facility] Heart rate 2021-06-09 16:51:00 88 /min Universi ty of [place] [facility] Body temperature 2021-06-09 16:51:00 37 [place] Univ ersity of [place] [facility] Respiratory rate 2021-06-09 16:51:00 20 /min Univ ersity of [place] [facility] Body height 2021-06-09 16:51:00 152.4 cm Universi ty of [place] [facility] Body weight 2021-06-09 16:51:00 79.062 kg [facility]i ty [facility] [place] [facility] BMI 2021-06-09 16:51:00 34.04 kg/m2 [facility]i ty [facility] [place] [facility] Oxygen saturation in 2021-06-09 16:51:00 97 /min University of Arterial blood by [employer] Pulse oximetry Branch Systolic (mm Hg) 2019-03-25 20:31:00 Osito Zambrano Diastolic (mm Hg) 2019-03-25 20:31:00 Guilherme Zambrano Heart Rate 2019-03-25 20:31:00 Rebecca Zambrano Respitory Rate 2019-03-25 20:31:00 Amie Gotti Height 2019-03-25 20:31:00 147.32 cm Rebecca Zambrano Weight 2019-03-25 20:31:00 Rebecca Zambrano BMI Calculated 2019-03-25 20:31:00 Amie Gotti Procedures Procedure Date / Time Performing Clinician Source Performed CT CHEST PULMONARY 2021-08-17 10:41:03 Jason Cantu [facility] ANGIOGRAM Medical Branch LIPASE 2021-08-17 08:51:00 Jason Cantu [facility] TROPONIN I 2021-08-17 08:51:00 Jason Cantu [facility] COMP. METABOLIC PANEL 2021-08-17 08:51:00 Jason Cantu [facility] ([id number]) Medical Branch CBC WITH DIFF 2021-08-17 08:51:00 Jason Cantu [facility] COVID-19 (ID NOW RAPID 2021-08-17 08:51:00 Jason Cantu [facility] TESTING) Medical Branch NOTICE OF PRIVACY 2021-08-17 08:08:15 Doctor Marilu, [facility] PRACTICES [facility] CONSENT/REFUSAL FOR 2021-08-17 08:02:31 Doctor Marilu [facility] DIAGNOSIS AND TREATMENT [facility] AUTHORIZATION FOR RELEASE 2021-08-16 06:01:00 [facility] EXTERNAL PROVIDER RECORDS 2021-08-12 06:01:00 Doctor Marilu, [facility] Name [facility] [place] BASIC METABOLIC PANEL 2021-07-29 20:49:00 Jolynn Marquez [facility] (NA, K, CL, CO2, GLUCOSE, Medica l Branch BUN, CREATININE, CA) POCT GLUCOSE (AUTOMATED) 2021-07-29 19:37:00 Soniya Santo [facility] POCT GLUCOSE (AUTOMATED) 2021-07-29 18:11:00 Domingo Soniya Cassidy versity of [facility] [place] [facility] POCT GLUCOSE (AUTOMATED) 2021-07-29 16:00:00 Domingo Soniya Cassidy versity of [facility] POCT GLUCOSE (AUTOMATED) 2021-07-29 14:21:00 Abiodun Santodakota Cassidy versity of [facility] MAGNESIUM 2021-07-29 14:13:00 [facility] BASIC METABOLIC PANEL 2021-07-29 14:13:00 [facility] (NA, K, CL, CO2, GLUCOSE, Medica l Branch BUN, CREATININE, CA) POCT GLUCOSE (AUTOMATED) 2021-07-29 14:07:00 Abiodun Santodakota Cassidy versity of [facility] POCT GLUCOSE (AUTOMATED) 2021-07-29 01:15:00 Abiodun Santodakota Cassidy versity [facility] POCT GLUCOSE (AUTOMATED) 2021-07-28 23:22:00 Soniya Santo Ange versity [facility] CAROTID DUPLEX BILATERAL 2021-07-28 21:03:18 Clarence Silvaity [facility] - BY VASCULAR LAB [facility] POCT GLUCOSE (AUTOMATED) 2021-07-28 18:50:00 Soniya Santo Ange versity of [facility] POCT GLUCOSE (AUTOMATED) 2021-07-28 17:36:00 Soniya Santo Ange versity of [facility] POCT GLUCOSE (AUTOMATED) 2021-07-28 16:52:00 Abiodun Santodakota Cassidy versity [facility] POCT GLUCOSE (AUTOMATED) 2021-07-28 14:37:00 Abiodun Santodakota Cassidy versity of [facility] MAGNESIUM 2021-07-28 11:27:00 [facility] BASIC METABOLIC PANEL 2021-07-28 11:27:00 [facility] (NA, K, CL, CO2, GLUCOSE, Medica l Branch BUN, CREATININE, CA) CBC WITH DIFF 2021-07-28 11:27:00 Alma [facility] POCT GLUCOSE (AUTOMATED) 2021-07-28 00:37:00 Soniya Santo [facility] MR BRAIN W WO CONTRAST 2021-07-27 21:39:37 Clarence Silva [facility] MR ORBIT W WO CONTRAST 2021-07-27 21:37:21 [facility] POCT GLUCOSE (AUTOMATED) 2021-07-27 17:58:00 Soniya Santo [facility] TRANSTHORACIC ECHO (TTE) 2021-07-27 16:30:00 Clarence Silva [facility] W/ CONTRAST [facility] POCT GLUCOSE (AUTOMATED) 2021-07-27 14:29:00 Soniya Santo [facility] TROPONIN I 2021-07-27 11:23:00 Alma [facility] HEPATIC FUNCTION PANEL 2021-07-27 11:23:00 Clarence Silva [facility] ([id number]) (ALB,T.PRO,BILI Medical Branch T,BU/BC,ALT,AST,ALK PHOS) BASIC METABOLIC PANEL 2021-07-27 11:23:00 Clarence Silva [facility] (NA, K, CL, CO2, GLUCOSE, Medica l Branch BUN, CREATININE, CA) CBC WITH DIFF 2021-07-27 11:23:00 Clarence Silva [facility] POCT GLUCOSE (AUTOMATED) 2021-07-27 05:21:00 Soniya Santo [facility] US ABDOMEN LIMITED 2021-07-27 02:53:00 [facility] (IMMUNOASSAY) 2021-07-27 01:45:00 Clarence Silva [facility] DRUG [facility] SCREEN PNEUMOCOCCAL ANTIGEN 2021-07-27 01:45:00 Clarence Silva [facility] BLOOD CULTURE SCREEN 2021-07-27 01:44:00 Clarence Silva [facility] LACTATE DEHYDROGENASE 2021-07-27 01:44:00 Clarence Silva sity [facility] TROPONIN I 2021-07-27 01:44:00 [facility]R 2021-07-27 01:44:00 [facility] D-DIMER 2021-07-27 01:44:00 Ricardo [facility] ACTIVATED PARTIAL 2021-07-27 01:44:00 Ricardo [facility] THRMPLAS DANIEL [facility] EXTRA TUBE LAV 2021-07-27 01:44:00 Domingo [facility] PROCALCITONIN 2021-07-27 01:44:00 Ricardo [facility] XR CHEST 1 VW 2021-07-27 01:15:25 Ricarod [facility] CT HEAD WO CONTRAST 2021-07-27 00:18:19 Clarence Silva [facility] COVID-19 (ID NOW RAPID 2021-07-26 21:03:00 Leslie Larkin [facility] TESTING) Medical Branch LAB ONLY COVID 2021-07-26 21:03:00 Leslie Larkin [facility] URINALYSIS 2021-07-26 19:11:00 Leslie Larkin [facility] LEGIONELLA URINARY 2021-07-26 19:11:00 Clarence Silva [facility] ANTIGEN TST [facility] URINE CULTURE 2021-07-26 19:11:00 Leslie Larkin [facility] LIPASE 2021-07-26 19:00:00 Leslie Larkin [facility] MAGNESIUM 2021-07-26 19:00:00 Ricardo [facility] FERRITIN SERUM 2021-07-26 19:00:00 Ricardo [facility] VITAMIN B12, LEVEL 2021-07-26 19:00:00 [facility] PROTEIN 2021-07-26 19:00:00 Ricardo [facility] TROPONIN I 2021-07-26 19:00:00 Leslie Larkin [facility] [place] FREE T4 2021-07-26 19:00:00 Leslie Larkin [facility] THYROID STIMULATING 2021-07-26 19:00:00 [facility]ark[facility] COMP. METABOLIC PANEL 2021-07-26 19:00:00 [id number] [place] LIPID PANEL (44267)(TOTAL 2021-07-26 19:00:00 Clarence Silva [facility] CHOLESTEROL, [facility] TRIGLYCERIDES, HDL) ETHANOL 2021-07-26 19:00:00 Clarence Silva [facility] CBC WITH DIFF 2021-07-26 19:00:00 Leslie Larkin [facility] GLYCOSYLATED HEMOGLOBIN 2021-07-26 19:00:00 Leslie Larkin [facility] (A1C) [facility] N-TERMINAL PRO-BNP 2021-07-26 19:00:00 Leslie Larkin [facility] FREE T3 2021-07-26 19:00:00 Leslie Larkin [facility] CONSENT/REFUSAL FOR 2021-07-26 17:46:46 Doctor Marilu [facility] DI[facility] TREATMENT [facility] [place] BI SCREENING 2021-07-01 15:02:00 Carisa Lizarraga [facility] TOMOSYNTHESIS BILATERAL Medical Branch NOTICE OF PRIVACY 2021-07-01 14:37:14 Doctor Marilu, [facility] PRACTICES [facility] [place] CONSENT/REFUSAL FOR 2021-07-01 14:36:59 Doctor Marilu [facility] ASSIGNMENT OF BENEFITS 2021-07-01 14:36:43 Doctor Marissjaylin, [facility] Appendectomy [facility] Encounters Start End Encounter Admission Attending Care Care Encounter Source Date/Time Date/Time Type Type Clinicians Facility Department ID 2021-05-27 Emergency [facility] [id number] Univers 20:25:41 ity of [facility] 2022-08-08 2022-08-08 Outpatient SFA SFA [id number] Serafin 15:49:16 15:49:16 0110 F Lukas 2022-06-06 2022-06-06 Outpatient Edgar SEYMOUR, [facility] [id number] Univers 14:40:00 14:40:00 MICHELLE ity o f [facility] 2021-08-17 2021-08-17 Emergency [facility] [id number] Univers 02:20:00 06:03:00 WAKILI ity [facility] 2021-08-17 2021-08-17 Emergency [facility] [id number] Univers 02:20:00 06:03:00 Adeletrudylarry S [place] 350.1.13.10 [place] [id number] [facility] 084 Branch 2021-08-16 2021-08-16 Orders Doctor NAYELY [id number] Univers 00:00:00 00:00:00 Only Unassigned, KRIS 350.1.13.10 ity of [place] [facility] 4.2.7.2.686 [place] as [phone] [facility] 009 Branch 2021-08-13 2021-08-13 [facility] [id number] Univers 09:33:00 13:48:00 MARGOT ity [facility] 2021-08-13 2021-08-13 Emergency Alexandro, [place] [id number] Univers 09:33:00 13:48:00 Margot S [place] 350.1.13.10 [place] [phone] [facility] 014 Branch 2021-08-12 2021-08-12 Orders Doctor NAYELY [id number] Univers 00:00:00 00:00:00 Only Unassigned, KRIS 350.1.13.10 ity of [place] [facility] 4.2.7.2.686 [place] as [phone] [facility] 009 Branch 2021-07-26 2021-07-29 Inpatient X DOMINGO [facility] [id number] Univers 11:48:00 18:19:00 SONIYA campos [facility] 2021-07-26 2021-07-29 [facility] Leslie Larkin 1.2.8 [id number] Univers 11:48:00 18:19:00 Encounter Soniya Santo 350.1 .13.10 ity [facility] 4.2.7.2.686 [place] [phone] [facility] 099 Branch 2021-07-28 2021-07-28 [facility] [id number] Univers 10:30:00 10:30:00 CARISAYURIY campos [facility] 2021-07-14 2021-07-14 [facility] [id number] Univers 11:00:00 11:00:00 CARISA ity [facility] 2021-07-01 2021-07-01 [facility] [id number] Univers 08:39:06 23:59:00 CARISAYURIY campos [facility] 2021-07-01 2021-07-01 [facility] 1.2.840.114 [id number] Univers 08:39:06 23:59:00 Encounter Carisa GALEAS 350.1.13.10 ity [facility] 4.[address].7.[address] [facility] [id number] [facility] 800 Branch 2021-07-01 2021-07-01 [facility] [id number] Univers 00:00:00 00:00:00 CARISA campos [facility] 2021-06-15 2021-06-15 Telephone [facility] [id number] Univers 00:00:00 00:00:00 Carisa [facility] 350.1.13.10 it y of [place] 4.2.7.2.686 [place] as JOSEPH?BLEA [id number] [address] MEDICAL OFFICE BUILDING 2021-06-09 2021-06-09 Outpatient [facility] [id number] Univers 11:00:00 11:41:41 CARISA campos [facility] 2021-06-09 2021-06-09 Office [facility] 1.2.840.114 [id number] Univers 10:37:35 11:41:41 Visit Carisa VALLADARES 350.1.13.10 it y of [place] 4.2.7.2.686 [place] as JOSEPH?BLEA [id number] Ny kenneth SALGADO 044 [facility] OFFICE [facility] 2021-06-09 2021-06-09 Outpatient [facility] [id number] Univers 11:00:00 11:00:00 CARISA campos [facility] 2021-06-09 2021-06-09 Orders Doctor NAYELY 1.2.840.114 [id number] Univers 00:00:00 00:00:00 Only Unassigned, KRIS 350.1.13.10 ity of [place] [facility] 4.2.7.2.686 [place] [id number] [address] 2021-06-05 2021-06-05 Emergency X [facility] ERT [id number] Univers 09:49:00 11:14:00 ABIGAIL campos [facility] 2021-06-05 2021-06-05 Emergency [facility] [id number] Univers 09:49:00 11:14:00 Abigail GALEAS 350.1.13.10 i ty of [place] 4.2[address]7.[address] [facility] [id number] [facility] 084 [place] 2021-06-05 2021-06-05 Orders Doctor NAYELY 1.2.840.114 [id number] Univers 00:00:00 00:00:00 Only Unassigned, KRIS 350.1.13.10 ity of [place] [facility] 4.2.7.2.686 [place] [id number] [address] 2021-04-05 2021-04-05 Orders Doctor NAYELY 1.2.840.114 [id number] Univers 00:00:00 00:00:00 Only Unassigned, KRIS 350.1.13.10 ity of [place] [facility] 4.2.7.2.686 [place] as [id number] [facility] 009 [place] 2020-04-29 2020-04-29 Emergency Willian, [place] [id number] Univers 08:26:00 13:26:00 [facility] 350.1.13.10 [place] [id number] [facility] 014 [place] 2019-03-25 2019-03-26 Outpatient nullFlavo MNA [id number] Memoria 20:00:00 04:59:59 r Neurology 00 l [place] 2019-03-25 2019-03-26 Outpatient nullFlavo MNA [id number] Memoria 20:00:00 04:59:59 r Neurology 00 l Adol[place] 2019-03-25 2019-03-25 Outpatient NISHA CarterMISCHER MHMISCHER [id number] 15:00:00 23:59:59 Luis E 00 Guido 2019-03-25 2019-03-25 Outpatient MHIE MHIE [id number] Memoria 15:00:00 15:00:00 00 l Juan Manuel 2019-03-10 2019-03-10 Case Francisca ADLER 1.2.840.114 [id number] Univers 00:00:00 00:00:00 Management , Nivia PONCE 350.1.13.10 ity of HOSPITAL 4.2.7.2.686 [place] [id number] [address] 2019-02-13 2019-02-13 Orders Doctor NAYELY 1.2.840.[id number] [facility] 00:00:00 00:00:00 Only Unassigned, KRIS 350.1.13.10 ity of [place] [facility] 4.2.7.2.686 [place] as [phone] [address] Results Test Description Test Time Test Comments Results Result Comments Source TROPONIN I 2021-08-17 09:49:15 Test Item Value Reference Range Interpretation Comme nts TROPONIN I (test code = 0.017 ng/mL See_Comment [Au tomated message] The 8466002017) system which ge nerated this result tra [...] biotin. Lab Interpretation Normal (test code = 07826-1) [facility]. METABOLIC PANEL (98929)2021-08-17 09:38:11 Test Item Value Reference Range Interpretation Comments NA (test code = 129 mmol/L 135-145 L 0176083669) K (test code = 4.4 mmol/L 3.5-5.0 6841582680) CL (test code = 94 mmol/L 98-108 L 8002548531) CO2 TOTAL (test code = 25 mmol/L 23-31 0973210625) AGAP (test code = 2-16 1468368562) BUN (test code = 23 mg/dL 7-23 4463620977) GLUCOSE (test code = 228 mg/dL 70-110 H 1873018740) CREATININE (test code = 1.26 mg/dL 0.50-1.04 H 7459505064) TOTAL BILI (test code = 0.8 mg/dL 0.1-1.9 4977771526) CALCIUM (test code = 9.4 mg/dL 8.6-10.6 8808148474) T PROTEIN (test code = 7.4 g/dL 6.3-8.2 4028958491) ALBUMIN (test code = 3.7 g/dL 3.5-5.0 5786992144) ALK PHOS (test code = 249 U/L 34-122 H 7358813849) ALTv (test code = 18 U/L 5-35 1742-6) AST(SGOT) (test code = 35 U/L 13-40 0994626520) eGFR (test code = mL/min/1.73m2 0108054077) CLARI (test code = CLARI) Association of [...] tests). Lab Interpretation Abnormal (test code = 99072-4) [facility]37[facility]35 Test Item Value Reference Range Interpretation Comments LIPASE (test code = 7443201751) 142 U/L 0-220 Lab Interpretation (test code = Normal 26673-3) [facility] WITH [id number] 09:16:28 Test Item Value Reference Range Interpretation Comments WBC (test code = See_Comment [Automated 7292-2) message] The sy stem which generated this [...] (test code = 37.8 fL 39.0-49.9 L 35929-3) RDW-CV (test code = 13.2 % 12.0-15.5 788-0) PLT (test code = See_Comment H [Automated 777-3) message] The sy stem which generated this result transmitted reference range : 166 - 358 10*3/ ?L. The reference r rigo was not used to interpret this result as normal/abnormal . MPV (test code = 9.7 fL 9.5-12.9 72482-3) NRBC/100 WBC (test See_Comment [Automat ed code = 2086778947) message] The system which generated this result transmitted reference range : 0.0 - 10.0 /100 WBCs. The refer ence range was not u sed to interpret th is result as normal/abnormal . NRBC x10^3 (test code <0.01 See_Comment [Auto mated = 1664543925) message] The s ystem which generated this result transmitted reference range : 10*3/?L. The reference range was not used to interpret this result as normal/abnormal . GRAN MAT (NEUT) % 65.3 % (test code = 770-8) IMM GRAN % (test code 0.30 % = 0034152918) LYMPH % (test code = 24.4 % 736-9) MONO % (test code = 6.9 % 5905-5) EOS % (test code = 1.8 % 713-8) BASO % (test code = 1.3 % 706-2) GRAN MAT x10^3(ANC) 6.79 10*3/uL 1.88-7.09 (test code = 1436657495) IMM GRAN x10^3 (test 0.03 10*3/uL 0.00-0.06 code = 6025801830) LYMPH x10^3 (test code 2.54 10*3/uL 1.32-3.29 = 731-0) MONO x10^3 (test code 0.72 10*3/uL 0.33-0.92 = 742-7) EOS x10^3 (test code = 0.19 10*3/uL 0.03-0.39 711-2) BASO x10^3 (test code 0.13 10*3/uL 0.01-0.07 H = 704-7) Lab Interpretation Abnormal (test code = 08885-8) [facility] METABOLIC PANEL (NA, K, CL, CO2, GLUCOSE, BUN, CREATININE, CA)2021-07-29 21:22:13 Test Item Value Reference Range Interpretation Comments NA (test code = 135 mmol/L 135-145 8460266887) K (test code = 4.1 mmol/L 3.5-5.0 1679393463) CL (test code = 101 mmol/L 98-108 2530247524) CO2 TOTAL (test code = 29 mmol/L 23-31 7253696750) AGAP (test code = 2-16 8812343181) BUN (test code = 20 mg/dL 7-23 1393817057) GLUCOSE (test code = 208 mg/dL 70-110 H 4751701475) CREATININE (test code = 1.39 mg/dL 0.50-1.04 H 8964598480) CALCIUM (test code = 8.1 mg/dL 8.6-10.6 L 9992904064) eGFR (test code = mL/min/1.73m2 5065861247) CLARI (test code = CLARI) Association of [...] tests). Lab Interpretation Abnormal (test code = 39732-9) [facility] GLUCOSE (AUTOMATED)2021-07-29 19:42:24 Test Item Value Reference Range Interpretation Comments POCT GLU (test code = 5836135583) 305 mg/dL 70-110 H Lab Interpretation (test code = Abnormal 88486-1) [facility] GLUCOSE (AUTOMATED)2021-07-29 18:15:14 Test Item Value Reference Range Interpretation Comments POCT GLU (test code = 1370862998) 139 mg/dL 70-110 H Lab Interpretation (test code = Abnormal 58380-7) [facility] GLUCOSE (AUTOMATED)2021-07-29 16:02:50 Test Item Value Reference Range Interpretation Comments POCT GLU (test code = 4010768860) 150 mg/dL 70-110 H Lab Interpretation (test code = Abnormal 58314-5) [facility] MET[facility]OLIC [facility] (NA, K, CL, CO2, GLUCOSE, BUN, CREATININE, CA)2021-07-29 14:44:49 Test Item Value Reference Range Interpretation Comments NA (test code = 137 mmol/L 135-145 6966256925) K (test code = 3.7 mmol/L 3.5-5.0 0830343212) CL (test code = 100 mmol/L 98-108 8046318844) CO2 TOTAL (test code = 32 mmol/L 23-31 H 5360984459) AGAP (test code = 2-16 1736019420) BUN (test code = 22 mg/dL 7-23 8259255387) GLUCOSE (test code = 70 mg/dL 70-110 5682803574) CREATININE (test code = 1.44 mg/dL 0.50-1.04 H 4153922358) CALCIUM (test code = 8.4 mg/dL 8.6-10.6 L 4847779313) eGFR (test code = mL/min/1.73m2 9201342179) CLARI (test code = CLARI) Association of [...] tests). Lab Interpretation Abnormal (test code = 64094-4) [facility]49 Test Item Value Reference Range Interpretation Comments MAGNESIUM (test code = 7224712911) 1.8 mg/dL 1.7-2.4 Lab Interpretation (test code = Normal 77298-9) [facility] GLUCOSE (AUTOMATED)2021-07-29 14:23:37 Test Item Value Reference Range Interpretation Comments POCT GLU (test code = 7015041143) 68 mg/dL 70-110 L Lab Interpretation (test code = Abnormal 70769-3) [facility] GLUCOSE (AUTOMATED)2021-07-29 14:09:04 Test Item Value Reference Range Interpretation Comments POCT GLU (test code = 5776900646) 69 mg/dL 70-110 L Lab Interpretation (test code = Abnormal 29834-7) [facility] GLUCOSE (AUTOMATED)2021-07-29 01:16:49 Test Item Value Reference Range Interpretation Comments POCT GLU (test code = 5411644661) 103 mg/dL 70-110 Lab Interpretation (test code = Normal 81427-6) [facility] GLUCOSE (AUTOMATED)2021-07-28 23:24:51 Test Item Value Reference Range Interpretation Comments POCT GLU (test code = 4181813335) 134 mg/dL 70-110 H Lab Interpretation (test code = Abnormal 51027-4) [facility] GLUCOSE (AUTOMATED)2021-07-28 18:51:28 Test Item Value Reference Range Interpretation Comments POCT GLU (test code = 2482292765) 276 mg/dL 70-110 H Lab Interpretation (test code = Abnormal 51925-4) [facility] GLUCOSE (AUTOMATED)2021-07-28 17:47:39 Test Item Value Reference Range Interpretation Comments POCT GLU (test code = 4474609563) 305 mg/dL 70-110 H Lab Interpretation (test code = Abnormal 52484-5) [facility] GLUCOSE (AUTOMATED)2021-07-28 16:53:19 Test Item Value Reference Range Interpretation Comments POCT GLU (test code = 9488365608) 276 mg/dL 70-110 H Lab Interpretation (test code = Abnormal 87808-7) [facility] GLUCOSE (AUTOMATED)2021-07-28 14:41:50 Test Item Value Reference Range Interpretation Comments POCT GLU (test code = 1461364030) 235 mg/dL 70-110 H Lab Interpretation (test code = Abnormal 19969-9) [facility] 13:09:27 Test Item Value Reference Range Interpretation Comments MAGNESIUM (test code = 4013545777) 2.0 mg/dL 1.7-2.4 Lab Interpretation (test code = Normal 83917-0) [facility] METABOLIC PANEL (NA, K, CL, CO2, GLUCOSE, BUN, CREATININE, CA)2021-07-28 12:34:26 Test Item Value Reference Range Interpretation Comments NA (test code = 135 mmol/L 135-145 8247688579) K (test code = 4.1 mmol/L 3.5-5.0 1687551597) CL (test code = 98 mmol/L 98-108 4568542902) CO2 TOTAL (test code = 32 mmol/L 23-31 H 8621030039) AGAP (test code = 2-16 4157458234) BUN (test code = 18 mg/dL 7-23 3620741031) GLUCOSE (test code = 229 mg/dL 70-110 H 1026043275) CREATININE (test code = 1.34 mg/dL 0.50-1.04 H 7081125962) CALCIUM (test code = 8.5 mg/dL 8.6-10.6 L 3053390264) eGFR (test code = mL/min/1.73m2 1050335087) CLARI (test code = CLARI) Association of [...] tests). Lab Interpretation Abnormal (test code = 21581-8) [facility] WITH [id number] 11:44:23 Test Item Value Reference Range Interpretation Comments WBC (test code = See_Comment [Automated 4390-2) message] The sy stem which generated this [...] RDW-SD (test code = 41.9 fL 39.0-49.9 27501-4) RDW-CV (test code = 13.6 % 12.0-15.5 788-0) PLT (test code = See_Comment H [Automated 777-3) message] The sy stem which generated this result transmitted reference range : 166 - 358 10*3/ ?L. The reference r rigo was not used to interpret this result as normal/abnormal . MPV (test code = 8.8 fL 9.5-12.9 L 59211-0) NRBC/100 WBC (test See_Comment [Automat ed code = 7998681622) message] The system which generated this result transmitted reference range : 0.0 - 10.0 /100 WBCs. The refer ence range was not u sed to interpret th is result as normal/abnormal . NRBC x10^3 (test code <0.01 See_Comment [Auto mated = 1510325161) message] The s ystem which generated this result transmitted reference range : 10*3/?L. The reference range was not used to interpret this result as normal/abnormal . GRAN MAT (NEUT) % 64.4 % (test code = 770-8) IMM GRAN % (test code 0.40 % = 3759808330) LYMPH % (test code = 26.5 % 736-9) MONO % (test code = 5.2 % 5905-5) EOS % (test code = 2.8 % 713-8) BASO % (test code = 0.7 % 706-2) GRAN MAT x10^3(ANC) 6.11 10*3/uL 1.88-7.09 (test code = 8316498961) IMM GRAN x10^3 (test 0.04 10*3/uL 0.00-0.06 code = 5736288211) LYMPH x10^3 (test code 2.52 10*3/uL 1.32-3.29 = 731-0) MONO x10^3 (test code 0.49 10*3/uL 0.33-0.92 = 742-7) EOS x10^3 (test code = 0.27 10*3/uL 0.03-0.39 711-2) BASO x10^3 (test code 0.07 10*3/uL 0.01-0.07 = 704-7) Lab Interpretation Abnormal (test code = 74443-5) [facility] GLUCOSE (AUTOMATED)2021-07-28 00:38:01 Test Item Value Reference Range Interpretation Comments POCT GLU (test code = 8201516957) 210 mg/dL 70-110 H Lab Interpretation (test code = Abnormal 41965-1) [facility] GLUCOSE (AUTOMATED)2021-07-27 18:01:28 Test Item Value Reference Range Interpretation Comments POCT GLU (test code = 4775234175) 188 mg/dL 70-110 H Lab Interpretation (test code = Abnormal 73550-8) [facility] [id number] 17:37:08 Test Item Value Reference Range Interpretation Comments CRP (test code = 5095743870) 2.7 mg/dL <0.8 H Lab Interpretation (test code = Abnormal 27050-1) [facility] GLUCOSE (AUTOMATED)2021-07-27 14:36:47 Test Item Value Reference Range Interpretation Comments POCT GLU (test code = 3611310732) 151 mg/dL 70-110 H Lab Interpretation (test code = Abnormal 19859-8) [facility] [id number] 13:02:47 Test Item Value Reference Interpretation Comments Range TROPONIN I (test 0.414 ng/mL See_Comment H [Automated code = 5702898341) message] The system which generated this result [...] biotin. Lab Interpretation Abnormal (test code = 74493-8) [facility] Metabolic Panel (NA, K, CL, CO2, GLUCOSE, BUN, CREATININE, CA)2021-07-27 12:44:03 Test Item Value Reference Range Interpretation Comments NA (test code = 134 mmol/L 135-145 L 6448737771) K (test code = 4.2 mmol/L 3.5-5.0 2690634877) CL (test code = 101 mmol/L 98-108 7453072567) CO2 TOTAL (test code = 28 mmol/L 23-31 7857746543) AGAP (test code = 2-16 3487068510) BUN (test code = 21 mg/dL 7-23 7986790145) GLUCOSE (test code = 159 mg/dL 70-110 H 8527712107) CREATININE (test code = 1.02 mg/dL 0.50-1.04 1149941981) CALCIUM (test code = 8.5 mg/dL 8.6-10.6 L 8834067124) eGFR (test code = mL/min/1.73m2 2775309321) CLARI (test code = CLARI) Association of [...] tests). Lab Interpretation Abnormal (test code = 77445-2) [facility]23232[facility] (ALB,T.PRO,BILI T,BU/BC,ALT,AST,ALK PHOS)2021-07-27 12:44:03 Test Item Value Reference Range Interpretation Comments TOTAL BILI (test code = 0695172676) 0.5 mg/dL 0.1-1.1 BILI UNCON (test code = 5492296626) 0.2 mg/dL 0.1-1.1 BILI CONJ (test code = 3167551712) 0.0 mg/dL 0.0-0.3 T PROTEIN (test code = 3701896549) 6.4 g/dL 6.3-8.2 ALBUMIN (test code = 8096892609) 2.8 g/dL 3.5-5.0 L ALK PHOS (test code = 3840665563) 891 U/L 34-122 H ALTv (test code = 1742-6) 29 U/L 5-35 AST(SGOT) (test code = 1593525389) 36 U/L 13-40 Lab Interpretation (test code = Abnormal 34768-8) [facility] with [id number] 11:55:37 Test Item Value Reference Range Interpretation Comments WBC (test code = See_Comment [Automated 6690-2) message] The sy stem which generated this result transmitted reference range : 4.30 - 11.10 10*3/?L. The reference range was not used to interpret this result as normal/abnormal . RBC (test code = See_Comment L [Automated 279-8) message] The sy stem which generated this [...] RDW-SD (test code = 42.1 fL 39.0-49.9 17095-1) RDW-CV (test code = 13.7 % 12.0-15.5 788-0) PLT (test code = See_Comment H [Automated 777-3) message] The sy stem which generated this result transmitted reference range : 166 - 358 10*3/ ?L. The reference r rigo was not used to interpret this result as normal/abnormal . MPV (test code = 8.9 fL 9.5-12.9 L 35077-0) NRBC/100 WBC (test See_Comment [Automat ed code = 3794290749) message] The system which generated this result transmitted reference range : 0.0 - 10.0 /100 WBCs. The refer ence range was not u sed to interpret th is result as normal/abnormal . NRBC x10^3 (test code <0.01 See_Comment [Auto mated = 1386605835) message] The s ystem which generated this result transmitted reference range : 10*3/?L. The reference range was not used to interpret this result as normal/abnormal . GRAN MAT (NEUT) % 63.0 % (test code = 770-8) IMM GRAN % (test code 0.20 % = 1363923922) LYMPH % (test code = 28.1 % 736-9) MONO % (test code = 6.3 % 5905-5) EOS % (test code = 1.9 % 713-8) BASO % (test code = 0.5 % 706-2) GRAN MAT x10^3(ANC) 5.17 10*3/uL 1.88-7.09 (test code = 4414052159) IMM GRAN x10^3 (test <0.03 0.00-0.06 code = 1754104702) LYMPH x10^3 (test code 2.31 10*3/uL 1.32-3.29 = 731-0) MONO x10^3 (test code 0.52 10*3/uL 0.33-0.92 = 742-7) EOS x10^3 (test code = 0.16 10*3/uL 0.03-0.39 711-2) BASO x10^3 (test code 0.04 10*3/uL 0.01-0.07 = 704-7) Lab Interpretation Abnormal (test code = 88761-2) [facility])2021-07-27 05:22:11 Test Item Value Reference Range Interpretation Comments POCT GLU (test code = 3392048705) 206 mg/dL 70-110 H Lab Interpretation (test code = Abnormal 00533-5) [facility] CenterMAGNESIUM2021-12-29 03:27:22 Test Item Value Reference Range Interpretation Comments MAGNESIUM (test code = 1733997990) 1.7 mg/dL 1.7-2.4 Lab Interpretation (test code = Normal 78634-5) [facility] CenterFERRITIN [id number] 03:02:19 Test Item Value Reference Range Interpretation Comments FERRITIN (test code = 225.0 ng/mL 11.0-264.0 1527965162) CLARI (test code = CLARI) Biotin has been reported to cause a negative bias, interpret results relative to patient's use of biotin. Lab Interpretation (test Normal code = 66733-1) [facility] CenterPROCALCITONIN2021-12-29 02:53:39 Test Item Value Reference Range Interpretation Comments Procalcitonin (test 0.03 ng/mL <0.07 code = 0893737680) CLARI (test code = CLARI) INTERPRETATION OF [...] lung abscess/empyema. For further information please refer to:[email or web address] Lab Interpretation Normal (test code = 32964-4) [facility] CenterSUSANNEAmanuel [id number] 02:35:15 Test Item Value Reference Interpretation Comments Range TROPONIN I (test 0.424 ng/mL See_Comment H [Automated code = 4429858234) message] The system which generated this result [...] biotin. Lab Interpretation Abnormal (test code = 13499-8) [facility] CenterLACTATE [id number] 02:19:52 Test Item Value Reference Range Interpretation Comments LDH (test code = 3609868581) 677 U/L 300-600 H Lab Interpretation (test code = Abnormal 86461-8) [facility] CenteraPTT2021-12-29 02:11:38 Test Item Value Reference Range Interpretation Comments APTT Patient (test code See_Comment H [Au tomated message] = 3173-2) The system [employer] generated this result transmitted ref erence range: 26 - 36 Seconds. The reference range was not used to int erpret this result as normal/abnormal . Lab Interpretation (test Abnormal code = 51727-8) [facility] CenterD-[id number] 02:11:38 Test Item Value Reference Interpretation Comments Range D-DIMER (test code = See_Comment H [Autom ated 9449381310) message] The system which generated this result [...] diagnosis. Lab Interpretation Abnormal (test code = 32449-3) [facility] CenterProthrombin Time / [id number] 02:11:37 Test Item Value Reference Range Interpretation Comments PROTIME PATIENT (test See_Comment [Auto mated message] code = 5964-2) The system Cover generated this result transmitted ref erence range: 10.1 - 1 2.6 Seconds. The re ference range was not u sed to interpret this result as normal/abnor mal. INR (test code = 6301-6) Nor mal INR <1.1; Warfarin Therap eutic range 2.0 to 3. 0 or 2.5 to 3.5, dep ending upon the indica tions. Lab Interpretation (test Normal code = 71637-0) [facility] CenterVITAMIN B12, [id number] 02:08:35 Test Item Value Reference Range Interpretation Comments VIT B12 (test code = 821 pg/mL 240-930 9788757584) CLARI (test code = CLARI) Biotin has been reported to cause a positive bias, interpret results relative to patient's use of biotin. Lab Interpretation (test Normal code = 16883-5) [facility] CenterETHANOL2021-12-29 01:20:19 Test Item Value Reference Range Interpretation Comments ALCOHOL (test code = <10 mg/dL 6298458756) CLARI (test code = Toxic Greater than or CLARI) equal to 80 mg/dL. NOTE: Whole blood values are approximately 10% to 15% lower than serum and plasma. [facility] CenterLIPID PANEL (02023)(TOTAL CHOLESTEROL, TRIGLYCERIDES, HDL)2021-07-27 01:17:48 Test Item Value Reference Range Interpretation Comments CHOL (test code = 202 mg/dL 120-200 H 1819555613) HDL (test code = 63 mg/dL >50 4739646920) HDLC RATIO (test code = See_Comment [Au tomated message] 1155075842) The system GL 2ours h generated this result transmit lurdes reference range : <=4.5. The refe rence range was not u sed to interpret th is result as normal/abnormal . TRIG (test code = 132 mg/dL 30-170 6531564720) LDL CHOL (test code = 113 mg/dL See_Comment [Auto mated message] 18707-3) The system [employer] generated this result transmit lurdes reference range : <=160. The refe rence range was not u sed to interpret th is result as normal/abnormal . VLDL (test code = 26 mg/dL 5-60 2394855082) Lab Interpretation (test Abnormal code = 29256-4) [facility] CenterGLYCOSYLATED HEMOGLOBIN (A1C)2021-07-26 21:04:12 Test Item Value Reference Range Interpretation Comments HGB A1C (test code = 13.3 % 4.0-5.7 H 4548-4) CLARI (test code = CLARI) Reference RangesNormal: <5.7%Prediabetes: 5.7 - 6.4%Diabetes: > 6.5% Lab Interpretation (test Abnormal code = 75564-6) [facility] [id number] 20:26:42 Test Item Value Reference Range Interpretation Comments FREE T3 (test code = 7112985275) 2.76 pg/mL 2.77-5.27 L Lab Interpretation (test code = Abnormal 87497-0) [facility] CenterTHYROID STIMULATING [id number] 19:56:38 Test Item Value Reference Range Interpretation Comments TSH (test code = See_Comment H [Automated message] 5550306903) The system [employer] generated this result transmitted ref erence range: 0.45 - 4 .70 mIU/L. The refe rence range was not u sed to interpret this result as normal/abnor mal. Lab Interpretation (test Abnormal code = 97486-9) [facility] [id number] 19:43:13 Test Item Value Reference Range Interpretation Comments FREE T4 (test code = See_Comment [Autom ated message] 7320118029) The system [employer] generated this result transmitted ref erence range: 0.78 - 2 .20 ng/dL:. The ref erence range was not u sed to interpret this result as normal/abnor mal. Lab Interpretation (test Normal code = 05779-3) [facility] CenterTROPONIN [id number] 19:38:10 Test Item Value Reference Interpretation Comments Range TROPONIN I (test 0.518 ng/mL See_Comment H [Automated code = 3384026211) message] The system which generated this result [...] biotin. Lab Interpretation Abnormal (test code = 86103-7) [facility] CenterN-TERMINAL [id number] 19:38:10 Test Item Value Reference Range Interpretation Comments NT-proBNP (test code 2180 pg/mL See_Comment H [Autom ated = 1217125068) message] The system which generated this result transmitted reference range : <=125. The reference range was not used to interpret this result as normal/abnormal . CLARI (test code = CLARI) Biotin has been reported to cause a negative bias, interpret results relative to patient's use of biotin. Lab Interpretation Abnormal (test code = 74511-9) [facility] CenterCOMP. METABOLIC PANEL (98706)2021-07-26 19:27:30 Test Item Value Reference Range Interpretation Comments NA (test code = 133 mmol/L 135-145 L 2800288367) K (test code = 5.1 mmol/L 3.5-5.0 H 7818128330) CL (test code = 99 mmol/L 98-108 0711630389) CO2 TOTAL (test code = 28 mmol/L 23-31 4332045955) AGAP (test code = 2-16 0215059315) BUN (test code = 20 mg/dL 7-23 2357335795) GLUCOSE (test code = 169 mg/dL 70-110 H 5801150111) CREATININE (test code = 0.99 mg/dL 0.50-1.04 0798691163) TOTAL BILI (test code = 0.5 mg/dL 0.1-1.4 3073989078) CALCIUM (test code = 8.8 mg/dL 8.6-10.6 6703311694) T PROTEIN (test code = 6.6 g/dL 6.3-8.2 4092580416) ALBUMIN (test code = 3.1 g/dL 3.5-5.0 L 2356847303) ALK PHOS (test code = 1212 U/L 34-122 H 4553676566) ALTv (test code = 39 U/L 5-35 H 1742-6) AST(SGOT) (test code = 42 U/L 13-40 H 4906430345) eGFR (test code = mL/min/1.73m2 5103936820) CLARI (test code = CLARI) Association of [...] tests). Lab Interpretation Abnormal (test code = 06858-9) [facility] CenterLIPASE2021-12-28 19:27:30 Test Item Value Reference Range Interpretation Comments LIPASE (test code = 9842752307) 135 U/L 0-220 Lab Interpretation (test code = Normal 93965-4) [facility] CenterCB WITH [id number] 19:18:50 Test Item Value Reference Range Interpretation [...] RDW-SD (test code = 41.1 fL 39.0-49.9 69372-0) RDW-CV (test code = 13.6 % 12.0-15.5 788-0) PLT (test code = See_Comment H [Automated 777-3) message] The sy stem which generated this result transmitted reference range : 166 - 358 10*3/ ?L. The reference r rigo was not used to interpret this result as normal/abnormal . MPV (test code = 8.9 fL 9.5-12.9 L 45700-0) NRBC/100 WBC (test See_Comment [Automat ed code = 0504452091) message] The system which generated this result transmitted reference range : 0.0 - 10.0 /100 WBCs. The refer ence range was not u sed to interpret th is result as normal/abnormal . NRBC x10^3 (test code <0.01 See_Comment [Auto mated = 6958326781) message] The s ystem which generated this result transmitted reference range : 10*3/?L. The reference range was not used to interpret this result as normal/abnormal . GRAN MAT (NEUT) % 68.5 % (test code = 770-8) IMM GRAN % (test code 0.40 % = 8550301265) LYMPH % (test code = 23.3 % 736-9) MONO % (test code = 5.7 % 5905-5) EOS % (test code = 1.4 % 713-8) BASO % (test code = 0.7 % 706-2) GRAN MAT x10^3(ANC) 5.69 10*3/uL 1.88-7.09 (test code = 8058690895) IMM GRAN x10^3 (test 0.03 10*3/uL 0.00-0.06 code = 8117718060) LYMPH x10^3 (test code 1.93 10*3/uL 1.32-3.29 = 731-0) MONO x10^3 (test code 0.47 10*3/uL 0.33-0.92 = 742-7) EOS x10^3 (test code = 0.12 10*3/uL 0.03-0.39 711-2) BASO x10^3 (test code 0.06 10*3/uL 0.01-0.07 = 704-7) Lab Interpretation Abnormal (test code = 61288-9) [facility]
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
[2022-10-11 18:52] VITALS: BP 180/83; TEMP 97.6; O2SAT 100
== END 2022-10-11 14:31 | disposition home or self-care (01) ==
LOC: ER 11:06
DX: S16.1XXA Strain of muscle, fascia and tendon at neck level, initial encounter (principal); S29.012A Strain of muscle and tendon of back wall of thorax, initial encounter; S39.011A Strain of muscle, fascia and tendon of abdomen, initial encounter; S39.012A Strain of muscle, fascia and tendon of lower back, initial encounter; S39.013A Strain of muscle, fascia and tendon of pelvis, initial encounter; Z88.5 Allergy status to narcotic agent; Z95.818 Presence of other cardiac implants and grafts
CPT/HCPCS: 82565; 70450; 72125; 71260; 74177; Q9967

== ENCOUNTER 2022-12-26 11:54 | Emergency (ER) | payer OTHER ==
--- OUTSIDE RECORDS SUMMARY | 2022-12-26 12:12 | XMS REPORT | Continuity of Care Document ---
:1965 Author Organization [facility] t Address [address] [facility] [place] [address] Care Team Providers Name Role Phone CARISA LIZARRAGA Primary Care Physician Unavailable CARISA LIZARRAGA Attending Clinician Unavailable KENY SEYMOUR Attending Clinician Unavailable Carisa Butler Attending Clinician Keny Seymour MD Attending Clinician Jayde Monroe LVN Attending Clinician ROBERT ROSADO Attending Clinician Unavailable Joaquín Samuels MD Attending Clinician Jagruti Booker DO Attending Clinician oRbert Rosado MD Attending Clinician Chantell Attending Clinician Unavailable Doctor Unassigned, [place] Attending Clinician Unavailable Lab, Ang - Db Attending Clinician Unavailable JASON CANTU Attending Clinician Unavailable Jason Cantu MD Attending Clinician MARGOT HERNANDEZ Attending Clinician Unavailable Margot Hernandez MD Attending Clinician SONIYA SANTO Attending Clinician Unavailable Leslie Bills Attending Clinician Domingo PADRON, Soniya Bradford Attending Clinician [phone] ABIGAIL FLOREZ Attending Clinician Unavailable Harley PADRON, Abigail Attending Clinician Alma Rosa Dorsey DO Attending Clinician Luis E Carter Attending Clinician Nivia Espinosa RN Attending Clinician LE, JAGRUTI Admitting Clinician Unavailable Le DO, Jagruti Admitting Clinician Prakash_S Admitting Clinician Unavailable JASON CANTU Admitting Clinician Unavailable SONIYA SANTO Admitting Clinician Unavailable Domingo PADRON, Soniya Bradford Admitting Clinician [phone] CARISA LIZARRAGA Admitting Clinician Unavailable Payers Payer Name Policy Type Policy Number Effective Date Expiration Date 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 12-19 Family coronary Coronary 00:00: Practi c artery Artery 00 e 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 angina Angina pectoris Pectoris Hypothyroi Hypothyroi Problem Active [facility] dism dism 12-19 Family 00:00: Practic 00 e Mixed Mixed Problem Active [facility] hyperlipid Hyperlipid 12-19 francisca emia emia 00:00: Practic 00 e Cataract Cataract Problem Active [facility] ge 12-19 Family 00:00: Practic 00 e Benign Benign Problem Active [facility] essential Essential 5-23 Fami ly hypertensi Hypertensi 00:00: Pr actic on on 00 e Congestive Congestive Problem Active [facility] heart Heart -23 Family failure Failure 00:00: Practic 00 e Hyperlipid Hyperlipid Disease Active U nivers emia, emia, 5-15 ity of unspecifie unspecifie [place] 00 Medical hyperlipid hyperlipid Br anch emia type emia type Chronic Chronic Disease Active Univers diastolic diastolic 5-11 ity of heart heart 00:00: [place] failure failure 00 Medical Branch Bilateral Bilateral Disease Active Uni vers leg edema leg edema 5-06 ity of 00:00: [place] 00 Medical Branch Dizziness Dizziness Disease Active 2020-07 Uni vers [...] Added automatic ally from request for surgery [id number] Obesity Obesity Disease Active 2017-07 Univers (BMI [...] the ons ons original. 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 Essential Essential Disease Active Overview: Univers hypertensi hypertensi 4-28 Formattin ity of on on 00:00: g of this [place] 00 note Medical might be Branch different from the original. 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 Acquired Acquired Disease Active Unive rs hypothyroi hypothyroi 4-28 it y of dism dism 00:00: Medical Branch History of History of Disease [...] of routine routine 00:00: g of this [place] gynecologi gynecologi 00 note Me dical theron theron might be Branch examinatio examinatio different n n from the original. 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 Boil Boil Disease Active Univers 11-24 ity of 00:00: [place] [facility] Surveillan Surveillan Disease Active Overview : Univers ce of ce of 11-24 Formattin ity of previously previously 00:00: g of this [place] prescribed prescribed note Me dical contracept contracept might be Branch brock method brock method different from the original. 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 Diabetes Diabetes Problem Active 2019-03-28 Memoria [...] Active Univers ALLERGIE Class ity of S [place] [facility] [place] Social History Social Habit Start Date Stop Date Quantity Comments Source History SDOH University o f Alcohol Comment [place] [facility] History of tobacco Passive smoker Un iversity of use [place] [facility] History SDOH Social Unive rsity of Connections Get [place] [facility] ical Together Branch History SDOH Social Unive rsity of Connections Zoroastrianism [place] [facility] History SDOH Social Unive rsity of Connections [place] [facility] Membership Branch History SDOH Social Unive rsity of Connections [place] [facility] Meetings Branch History SDOH University o f Housing Places [facility] Branch Exposure to 2022-12-01 2022-12-11 Not sure University of SARS-CoV-2 (event) 00:00:00 15:15:00 [place] [facility] Alcohol intake 2022-12-07 2022-12-07 Ex-drinker University of 00:00:00 00:00:00 (finding) [place] [facility] History SDOH 2022-12-03 2022-12-03 1 University o f Alcohol Frequency 00:00:00 00:00:00 [place] M edical Branch History SDOH 2022-12-03 2022-12-03 5 University o f Financial 00:00:00 00:00:00 [place] [facility] History SDOH Food 2022-12-03 2022-12-03 1 Univers ity of Worry 00:00:00 00:00:00 [place] [facility] History SDOH Food 2022-12-03 2022-12-03 1 Univers ity of Scarcity 00:00:00 00:00:00 [place] [facility] History SDOH 2022-12-03 2022-12-03 2 University o f Transport Med 00:00:00 00:00:00 [place] [facility] al [facility] History SDOH 2022-12-03 2022-12-03 2 University o f Transport Non-Med 00:00:00 00:00:00 [place] M edical Branch History SDOH Social 2022-12-03 2022-12-03 5 Unive rsity of Connections Phone 00:00:00 00:00:00 [place] M edical Branch History SDOH Social 2022-12-03 2022-12-03 7 Unive rsity of Connections Living 00:00:00 00:00:00 [place] [facility] History SDOH 2022-12-03 2022-12-03 2 University o f Housing Unable to 00:00:00 00:00:00 [place] [facility] edical Pay Branch History SDOH 2022-12-03 2022-12-03 2 University o f Housing Homeless 00:00:00 00:00:00 [place] Me dical Last Year Branch Tobacco use and 2022-12-02 2022-12-02 Smokeless Universit y of exposure 00:00:00 00:00:00 tobacco non-user [place] Me dical Branch History SDOH 2021-08-22 2021-08-22 1 University o f Alcohol Std Drinks 00:00:00 00:00:00 [place] [facility] History SDOH 2021-08-22 2021-08-22 1 University o f Alcohol Binge 00:00:00 00:00:00 [place] [facility] al Branch History SDOH Stress 2021-08-22 2021-08-22 5 Unive rsity of 00:00:00 00:00:00 [facility] Social History 2019-03-25 2019-03-25 [facility] 20:40:29 20:40:29 Sex [birth year] At [birth year] Universit y of 00:00:00 00:00:00 [facility] Smoking Status Start Date Stop Date Source Never Smoker [place] [facility] P ulisses Medications Ordered Filled Start Stop Current Ordering Indication Dosage Frequency Signature Comments Components Source Medication Medication Date Date Medication? Clinician (SIG) Name Name clopidogreL 2022- No 75mg Take 75 mg Univers (PLAVIX) 75 5-15 05-15 by mouth ity of mg tablet 15:43: 00:00 daily. [place] 13 :00 [facility] clopidogreL 2022- No 75mg Take 75 mg Univers (PLAVIX) 75 5-15 05-15 by mouth ity of mg tablet 15:43: 00:00 daily. [place] 13 :00 [facility] Branch furosemide Yes 40mg 40 mg, Unive rs (LASIX) 5-08 Oral, ity of tablet 40 14:00: DAILY, mg 00 First dose Medical on Sun Branch 12/04/22 at 0900, Until Discontinu ed, Routine furosemide 2022- Yes [id number] 40mg Take 1 Univers 40 mg 12-04-08 tablet by ity of tablet 00:00: 04:59 mouth in [place] 00 :00 the Medical morning Branch for 30 days. furosemide 2022- Yes [id number] 40mg Take 1 Univers 40 mg 5-08 06-08 tablet by ity of tablet 00:00: 04:59 mouth in [place] 00 :00 the Medical [facility] for 30 days. furosemide 2023-0 2023- Yes [id number] 40mg Take 1 Univers 40 mg 5-08 06-08 tablet by ity of tablet 00:00: 04:59 mouth in [place] 00 :00 the [facility] for 30 days. furosemide 2023-0 2023- Yes [id number] 40mg Take 1 Univers 40 mg 5-08 06-08 tablet by ity of tablet 00:00: 04:59 mouth in [place] 00 :00 the [facility] for 30 days. furosemide 2023-0 2023- Yes [id number] 40mg Take 1 Univers 40 mg 5-08 06-08 tablet by ity of tablet 00:00: 04:59 mouth in [place] 00 :00 the [facility] for 30 days. furosemide 2023-0 2023- Yes [id number] 40mg Take 1 Univers 40 mg 5-08 06-08 tablet by ity of tablet 00:00: 04:59 mouth in [place] 00 :00 the [facility] for 30 days. furosemide 2022-0 2023- Yes [id number] 40mg Take 1 Univers 40 mg 5-08 06-08 tablet by ity of tablet 00:00: 04:59 mouth in [place] 00 :00 the [facility] for 30 days. furosemide 3-0 2023- Yes [id number] 40mg Take 1 Univers 40 mg 5-08 06-08 tablet by ity of tablet 00:00: 04:59 mouth in [place] 00 :00 [facility] for 30 days. amLODIPine 3-0 Yes 10mg Take 10 mg U nivers 10 mg 5-07 by mouth ity of tablet 15:46: daily. [address] Branch metoprolol 3-0 Yes 50mg Take 50 mg U nivers tartrate 50 5-07 by mouth 2 it y of mg tablet 15:46: (two) [place] [address] times [facility] daily. Branch clopidogreL 3-0 Yes 75mg Take 75 mg Univers (PLAVIX) 75 5-07 by mouth ity of mg tablet 15:46: daily. [place] [address] Medical [place] amLODIPine 3-0 Yes 10mg Take 10 mg U nivers 10 mg 5-07 by mouth ity of tablet 15:46: daily. [address] Branch metoprolol 3-0 Yes 50mg Take 50 mg U nivers tartrate 50 5-07 by mouth 2 it y of mg tablet 15:46: (two) [place] [address] times Medical daily. Branch clopidogreL 3-0 Yes 75mg Take 75 mg Univers (PLAVIX) 75 5-07 by mouth ity of mg tablet 15:46: daily. [address] Branch amLODIPine 3-0 Yes 10mg Take 10 mg U nivers 10 mg 5-07 by mouth ity of tablet 15:46: daily. [address] Branch metoprolol 3-0 Yes 50mg Take 50 mg U nivers tartrate 50 5-07 by mouth 2 it y of mg tablet 15:46: (two) [address] Medical daily. Branch clopidogreL 3-0 Yes 75mg Take 75 mg Univers (PLAVIX) 75 5-07 by mouth ity of mg tablet 15:46: daily. [address] Branch amLODIPine 3-0 Yes 10mg Take 10 mg U nivers 10 mg 5-07 by mouth ity of tablet 15:46: daily. [address] Branch metoprolol 3-0 Yes 50mg Take 50 mg U nivers tartrate 50 5-07 by mouth 2 it y of mg tablet 15:46: (two) [address] Medical daily. Branch clopidogreL 3-0 Yes 75mg Take 75 mg Univers (PLAVIX) 75 5-07 by mouth ity of mg tablet 15:46: daily. [address] Branch amLODIPine 3-0 Yes 10mg Take 10 mg U nivers 10 mg 5-07 by mouth ity of tablet 15:46: daily. [address] Branch metoprolol 3-0 Yes 50mg Take 50 mg U nivers tartrate 50 5-07 by mouth 2 it y of mg tablet 15:46: (two) [place] [address] times Medical daily. Branch amLODIPine 2023-0 Yes 10mg Take 10 mg U nivers 10 mg 5-07 by mouth ity of tablet 15:46: daily. [address] Branch metoprolol 2023-0 Yes 50mg Take 50 mg U nivers tartrate 50 5-07 by mouth 2 it y of mg tablet 15:46: (two) [place] [address] times Medical daily. Branch amLODIPine 2023-0 Yes 10mg Take 10 mg U nivers 10 mg 5-07 by mouth ity of tablet 15:46: daily. [address] metoprolol 2022-0 Yes 50mg Take 50 mg U nivers tartrate 50 5-07 by mouth 2 it y of mg tablet 15:46: (two) [place] 24 times Medical daily. Branch amLODIPine 0 Yes 10mg Take 10 mg U nivers 10 mg 5-07 by mouth ity of tablet 15:46: daily. [address] metoprolol 2022-0 Yes 50mg Take 50 mg U nivers tartrate 50 5-07 by mouth 2 it y of mg tablet 15:46: (two) [place] 24 times Medical daily. Branch clopidogreL 0 Yes 75mg Take 75 mg Univers (PLAVIX) 75 5-07 by mouth ity of mg tablet 15:46: daily. [address] atorvastati 0 Yes 80mg 80 mg, Univ ers n (LIPITOR) 5-07 Oral, QHS, it y of tablet 80 02:00: First dose [place] mg 00 on [facility] 12/02/22 at Branch 2100, Until Discontinu ed, Routine furosemide 0 2022- No 40mg 40 mg, Univ ers (LASIX) 12-03 05-07 Slow IV ity of injection 01:00: 19:11 Push, [place] 40 mg 00 :24 Q12H, Medical First dose Branch (after last modificati on) on [facility] 12/02/22 at 2000, Until Discontinu ed, Routine enoxaparin 0 Yes 40mg 40 mg, Unive rs (LOVENOX) 12-02 Subcutaneo ity of injection 22:00: us, DAILY [place] 40 mg 00 AT 1700, Medical First dose Branch on [facility] 12/02/22 at 1700, Until Discontinu ed, Routine pantoprazol 0 Yes 40mg 40 mg, Univ ers e 5-06 Oral, ity of (PROTONIX) 14:00: DAILY, [place] EC tablet 00 First dose Medi theron 40 mg on [facility] 12/02/22 at 0900, Until Discontinu ed, Routine lisinopriL 2022-0 Yes 20mg 20 mg, Unive rs (PRINIVIL,Z -06 Oral, ity of ESTRIL) 14:00: DAILY, [place] tablet 20 00 First dose Medi theron mg on [facility] 12/02/22 at 0900, Until Discontinu ed, Routine clopidogreL 2022-0 Yes 75mg 75 mg, Univ ers (PLAVIX) 75 12-02 Oral, ity of mg tablet 14:00: DAILY, [place] 75 mg 00 First dose Medical on [facility] 12/02/22 at 0900, Until Discontinu ed, Routine aspirin 2022-0 Yes 81mg 81 mg, Univers chewable 12-02 Oral, ity of tablet 81 14:00: DAILY, [place] mg 00 First dose Medical on [facility] 12/02/22 at 0900, Until Discontinu ed, Routine amLODIPine 2022-0 Yes 10mg 10 mg, Unive rs (NORVASC) 12-02 Oral, ity of tablet 10 14:00: DAILY, [place] mg 00 First dose Medical on [facility] 12/02/22 at 0900, Until Discontinu ed, Routine furosemide 2022-0 2023- No 40mg 40 mg, Univ ers (LASIX) 12-02 05-06 Slow IV ity of injection 14:00: 21:58 Push, [place] 40 mg 00 :32 DAILY, Medical First dose Branch on [facility] 12/02/22 at 0900, Until Discontinu ed, Routine metoprolol 2022-0 Yes 50mg 50 mg, Unive rs tartrate 12-02 Oral, BID, ity o f (LOPRESSOR) 13:00: First dose [place] tablet 50 00 on [facility] 12/02/22 at Branch 0800, Until Discontinu ed, Routine gabapentin 2022-0 Yes 300mg 300 mg, Uni vers (NEURONTIN) 12-02 Oral, TID, it y of capsule 300 13:00: First dose [place] mg 00 on [facility] 12/02/22 at Branch 0800, Until Discontinu ed, Routine Sliding 2022-0 Yes Subcutaneo Univ ers Scale 12-02 us, AC+HS, ity of Insulin-Reg 12:30: First dose [place] ular 00 on [facility] 12/02/22 at Branch 0730, Until Discontinu ed, Routine glipiZIDE 2022-0 Yes 10mg 10 mg, Univer s (GLUCOTROL) 12-02 Oral, ity of tablet 10 12:30: BIDAC, [place] mg 00 First dose Medical on [facility] 12/02/22 at 0730, Until Discontinu ed, Routine levothyroxi 2022-0 Yes 50ug 50 mcg, Uni vers ne 5- Oral, ity of (SYNTHROID) 11:00: QAM-0600, [place] tablet 50 00 First dose Medi theron mcg on Sat Branch 12/02/22 at 0600, Until Discontinu ed, Routine HYDROcodone 2022-0 Yes 1{tbl} 1 tablet, Univers -acetaminop 5- Oral, ity of hen (NORCO) 07:28: Q6HPRN, [place] 10-325 mg 13 Starting Medica l tablet 1 on Sat Branch tablet 12/02/22 at 0228, Until Discontinu ed, Routine, Pain (scale 7-10) acetaminoph 2022-0 2022- Yes 1{tbl} 1 tablet, Univers en-codeine 12-02 05-08 Oral, ity of (TYLENOL 07:28: 07:27 Q6HPRN, [place] #3) 300-30 10 :10 Starting Medic al mg tablet 1 on Sat Branch tablet 12/02/22 at 0228, Until 12/04/22 at 0227, Routine, Pain (scale 4-6) acetaminoph 2022-0 Yes 650mg 650 mg, Un tatyana en 5-06 Oral, ity of (TYLENOL) 07:27: Q6HPRNGaastra, [place] tablet 650 56 Starting Medic al mg on Sat Branch 12/02/22 at 0227, Until Discontinu ed, Routine, Pain (scale 1-3) butalbital- 2022-0 Yes 1{tbl} 1 tablet, Univers acetaminoph - Oral, ity of en-caff 07:24: Q6HPNGaastra, [place] (ESGIC) 46 Starting Medical 50-325-40 on Sat Branch mg tablet 1 12/02/22 at tablet 0224, Until Discontinu ed, Routine, Headache furosemide 2022-0 2022- No 80mg 80 mg, IV U nivers (LASIX) 12-02 05-06 Push, ity of injection 03:45: 03:42 ONCE, 1 [place] 80 mg 00 :00 dose, On Medical 12/01/22 Branch at 2245, REGAN levothyroxi 2022-0 Yes [id number] 50ug Take 1 Univers ne 4-09 tablet by ity of (SYNTHROID) 00:00: mouth [place] 50 mcg 00 every Medical tablet morning. Branch levothyroxi 2022-0 Yes [id number] 50ug Take 1 Univers ne 4-09 tablet by ity of (SYNTHROID) 00:00: mouth [place] 50 mcg 00 every Medical tablet morning. Branch levothyroxi 2022-0 Yes [id number] 50ug Take 1 Univers ne 4-09 tablet by ity of (SYNTHROID) 00:00: mouth [place] 50 mcg 00 every Medical tablet morning. Branch levothyroxi 2022-0 Yes [id number] 50ug Take 1 Univers ne 4-09 tablet by ity of (SYNTHROID) 00:00: mouth [place] 50 mcg 00 every Medical tablet morning. Branch levothyroxi 2022-0 Yes [id number] 50ug Take 1 Univers ne 4-09 tablet by ity of (SYNTHROID) 00:00: mouth [place] 50 mcg 00 every Medical tablet morning. Branch levothyroxi 2022-0 Yes [id number] 50ug Take 1 Univers ne 4-09 tablet by ity of (SYNTHROID) 00:00: mouth [place] 50 mcg 00 every Medical tablet morning. Branch levothyroxi 2022-0 Yes [id number] 50ug Take 1 Univers ne 4-09 tablet by ity of (SYNTHROID) 00:00: mouth [place] 50 mcg 00 every Medical tablet morning. Branch levothyroxi 2022-0 Yes [id number] 50ug Take 1 Univers ne 4-09 tablet by ity of (SYNTHROID) 00:00: mouth [place] 50 mcg 00 every Medical tablet morning. Branch levothyroxi 2022-0 Yes [id number] 50ug Take 1 Univers ne 4-09 tablet by ity of (SYNTHROID) 00:00: mouth [place] 50 mcg 00 every Medical tablet morning. Branch levothyroxi 2022-0 Yes [id number] 50ug Take 1 Univers ne 4-09 tablet by ity of (SYNTHROID) 00:00: mouth [place] 50 mcg 00 every Medical tablet morning. Branch levothyroxi 2022-0 Yes [id number] 50ug Take 1 Univers ne 4-09 tablet by ity of (SYNTHROID) 00:00: mouth [place] 50 mcg 00 every Medical tablet morning. Branch pantoprazol 2022-0 3- No 40mg Take 1 Uni vers e 40 mg EC 4-06 04- tablet by ity of tablet 08:38: 00:00 mouth in [place] 08 :00 the Medical morning. Branch atorvastati 2022-0 2022- No 80mg Take 1 Uni vers n 80 mg 11-02-06 tablet by ity of tablet 08:38: 00:00 mouth at [place] 08 :00 bedtime. Medical Branch pantoprazol 2022-0 2022- No 40mg Take 1 Uni vers e 40 mg EC 11-02- tablet by ity of tablet 08:38: 00:00 mouth in [place] 08 :00 the Medical morning. Branch atorvastati 2022-0 2022- No 80mg Take 1 Uni vers n 80 mg 11-02- tablet by ity of tablet 08:38: 00:00 mouth at [place] 08 :00 bedtime. Medical Branch pantoprazol 2022-0 2022- No 40mg Take 1 Uni vers e 40 mg EC 11-02 tablet by ity of tablet 08:38: 00:00 mouth in [place] 08 :00 the Medical morning. Branch atorvastati 2022-0 2022- No 80mg Take 1 Uni vers n 80 mg 11-02- tablet by ity of tablet 08:38: 00:00 mouth at [place] 08 :00 bedtime. Medical Branch pantoprazol 2022-0 2022- No 40mg Take 1 Uni vers e 40 mg EC 11-02- tablet by ity of tablet 08:38: 00:00 mouth in [place] 08 :00 the Medical morning. Branch atorvastati 2022-0 2022- No 80mg Take 1 Uni vers n 80 mg 11-02- tablet by ity of tablet 08:38: 00:00 mouth at [place] 08 :00 bedtime. Medical Branch glipiZIDE 2022-0 Yes [id number] 10mg Take 1 Un tatyana 10 mg - tablet by ity of tablet 00:00: mouth 2 [place] 00 (two) Medical times Branch daily before breakfast and dinner. lisinopriL 2022-0 Yes [id number] 20mg Take 1 U nivers 20 mg -06 tablet by ity of tablet 00:00: mouth in [place] 00 the Medical morning. Branch insulin NPH Yes [id number] 15U inject 15 Univers and regular 4-06 Units ity of human 70-30 00:00: under the [place] (HUMULIN 00 skin 2 Medical 70/30 U-100 (two) Branch INSULIN) times 100 unit/mL daily (70-30) before injection breakfast and dinner. atorvastati 0 Yes [id number] 80mg Take 1 Univers n 80 mg 4-06 tablet by ity of tablet 00:00: mouth at [place] [address] bedtime. Medical Branch aspirin 81 0 Yes [id number] 81mg Take 1 Univers mg chewable 4-06 tablet by ity of tablet 00:00: mouth in [place] 00 the Medical morning. Branch pantoprazol Yes [id number] 40mg Take 1 Univers e 40 mg EC 4-06 tablet by ity of tablet 00:00: mouth in [place] 00 the Medical morning. Branch gabapentin 0 Yes [id number] 300mg Take 1 Univers 300 mg 4-06 capsule by ity of capsule 00:00: mouth in [place] 00 the Medical morning Branch and 1 capsule at noon and 1 capsule in the evening. glipiZIDE 0 Yes [id number] 10mg Take 1 Un tatyana 10 mg 4-06 tablet by ity of tablet 00:00: mouth 2 [place] [address] (two) Medical times Branch daily before breakfast and dinner. lisinopriL 0 Yes [id number] 20mg Take 1 U nivers 20 mg 4-06 tablet by ity of tablet 00:00: mouth in [place] 00 the Medical morning. Branch insulin NPH 0 Yes [id number] 15U inject 15 Univers and regular 4-06 Units ity of human 70-30 00:00: under the [place] (HUMULIN 00 skin 2 Medical 70/30 U-100 (two) Branch INSULIN) times 100 unit/mL daily (70-30) before injection breakfast and dinner. atorvastati 0 Yes [id number] 80mg Take 1 Univers n 80 mg 4-06 tablet by ity of tablet 00:00: mouth at [place] [address] bedtime. Medical Branch aspirin 81 0 Yes [id number] 81mg Take 1 Univers mg chewable 4-06 tablet by ity of tablet 00:00: mouth in [place] 00 the Medical morning. Branch pantoprazol 2022-0 Yes [id number] 40mg Take 1 Univers e 40 mg EC 4-06 tablet by ity of tablet 00:00: mouth in [place] 00 the Medical morning. Branch gabapentin 2022-0 Yes [id number] 300mg Take 1 Univers 300 mg 4-06 capsule by ity of capsule 00:00: mouth in [place] the Medical morning Branch and 1 capsule at noon and 1 capsule in the evening. glipiZIDE 2022-0 Yes [id number] 10mg Take 1 Un tatyana 10 mg 4-06 tablet by ity of tablet 00:00: mouth 2 [place] (two) Medical times Branch daily before breakfast and dinner. lisinopriL 2022-0 Yes [id number] 20mg Take 1 U nivers 20 mg 4-06 tablet by ity of tablet 00:00: mouth in [place] the Medical morning. Branch insulin NPH 2022-0 Yes [id number] 15U inject 15 Univers and regular 4-06 Units ity of human 70-30 00:00: under the [place] (HUMULIN 00 skin 2 [facility] 70/30 U-100 (two) [place] INSULIN) times 100 unit/mL daily (70-30) before injection breakfast and dinner. atorvastati 2022-0 Yes [id number] 80mg Take 1 Univers n 80 mg 4-06 tablet by ity of tablet 00:00: mouth at [place] [address] bedtime. Medical Branch aspirin 81 2022-0 Yes [id number] 81mg Take 1 Univers mg chewable 4-06 tablet by ity of tablet 00:00: mouth in [place] the Medical morning. Branch pantoprazol 2022-0 Yes [id number] 40mg Take 1 Univers e 40 mg EC 4-06 tablet by ity of tablet 00:00: mouth in [place] the Medical morning. Branch gabapentin 2022-0 Yes [id number] 300mg Take 1 Univers 300 mg 4-06 capsule by ity of capsule 00:00: mouth in [place] 00 the Medical morning Branch and 1 capsule at noon and 1 capsule in the evening. glipiZIDE 2022-0 Yes [id number] 10mg Take 1 Un tatyana 10 mg 4-06 tablet by ity of tablet 00:00: mouth 2 [place] (two) Medical times Branch daily before breakfast and dinner. lisinopriL 2022-0 Yes [id number] 20mg Take 1 U nivers 20 mg 4-06 tablet by ity of tablet 00:00: mouth in [place] the Medical morning. Branch insulin NPH Yes [id number] 15U inject 15 Univers and regular 4-06 Units ity of human 70-30 00:00: under the [place] (HUMULIN 00 skin 2 Medical 70/30 U-100 (two) Branch INSULIN) times 100 unit/mL daily (70-30) before injection breakfast and dinner. atorvastati 0 Yes [id number] 80mg Take 1 Univers n 80 mg 4-06 tablet by ity of tablet 00:00: mouth at [place] [address] bedtime. Medical Branch aspirin 81 0 Yes [id number] 81mg Take 1 Univers mg chewable 4-06 tablet by ity of tablet 00:00: mouth in [place] the Medical morning. Branch pantoprazol Yes [id number] 40mg Take 1 Univers e 40 mg EC 4-06 tablet by ity of tablet 00:00: mouth in [place] 00 the Medical morning. Branch gabapentin 0 Yes [id number] 300mg Take 1 Univers 300 mg 4-06 capsule by ity of capsule 00:00: mouth in [place] 00 the Medical morning Branch and 1 capsule at noon and 1 capsule in the evening. glipiZIDE 0 Yes [id number] 10mg Take 1 [facility] 10 mg 4-06 tablet by ity of tablet 00:00: mouth 2 [place] [address] (two) Medical times Branch daily before breakfast and dinner. lisinopriL 0 Yes [id number] 20mg Take 1 U nivers 20 mg 4-06 tablet by ity of tablet 00:00: mouth in [place] 00 the Medical morning. Branch insulin NPH Yes [id number] 15U inject 15 [facility] and regular 4-06 Units ity of human 70-30 00:00: under the [place] (HUMULIN 00 skin 2 Medical 70/30 U-100 (two) Branch INSULIN) times 100 unit/mL daily (70-30) before injection breakfast and dinner. atorvastati 0 Yes [id number] 80mg Take 1 [facility] n 80 mg 4-06 tablet by ity of tablet 00:00: mouth at [place] [address] bedtime. Medical Branch aspirin 81 0 Yes [id number] 81mg Take 1 [facility] mg chewable 4-06 tablet by ity of tablet 00:00: mouth in [place] the Medical morning. Branch pantoprazol 2022-0 Yes [id number] 40mg Take 1 [facility] e 40 mg EC 4-06 tablet by ity of tablet 00:00: mouth in [place] the Medical morning. Branch gabapentin 2022-0 Yes [id number] 300mg Take 1 [facility] 300 mg 4-06 capsule by ity of capsule 00:00: mouth in [place] the Medical morning Branch and 1 capsule at noon and 1 capsule in the evening. glipiZIDE 2022-0 Yes [id number] 10mg Take 1 Un [place] 10 mg 4-06 tablet by ity of tablet 00:00: mouth 2 [place] (two) Medical times Branch daily before breakfast and dinner. lisinopriL 0 Yes [id number] 20mg Take 1 U nivers 20 mg 4-06 tablet by ity of tablet 00:00: mouth in [place] the Medical morning. Branch insulin NPH 0 Yes [id number] 15U inject 15 [facility] and regular 4-06 Units ity of human 70-30 00:00: under the [place] (HUMULIN 00 skin 2 [facility] 70/30 U-100 (two) Branch INSULIN) times 100 unit/mL daily (70-30) before injection breakfast and dinner. atorvastati 0 Yes [id number] 80mg Take 1 [facility] n 80 mg 4-06 tablet by ity of tablet 00:00: mouth at [place] 00 bedtime. Medical Branch aspirin 81 2022-0 Yes [id number] 81mg Take 1 [facility] mg chewable 4-06 tablet by ity of tablet 00:00: mouth in [place] the Medical morning. Branch pantoprazol 2022-0 Yes [id number] 40mg Take 1 [facility] e 40 mg EC 4-06 tablet by ity of tablet 00:00: mouth in [place] the Medical morning. Branch gabapentin 2022-0 Yes [id number] 300mg Take 1 [facility] 300 mg 4-06 capsule by ity of capsule 00:00: mouth in [place] the Medical morning Branch and 1 capsule at noon and 1 capsule in the evening. glipiZIDE 2022-0 Yes [id number] 10mg Take 1 Un [facility] 10 mg 4-06 tablet by ity of tablet 00:00: mouth 2 [place] (two) Medical times Branch daily before breakfast and dinner. lisinopriL 2022-0 Yes [id number] 20mg Take 1 U nivers 20 mg 4-06 tablet by ity of tablet 00:00: mouth in [place] the Medical morning. Branch insulin NPH 2022-0 Yes [id number] 15U inject 15 [facility] and regular 4-06 Units ity of human 70-30 00:00: under the [place] (HUMULIN 00 skin 2 Medical 70/30 U-100 (two) Branch INSULIN) times 100 unit/mL daily (70-30) before injection breakfast and dinner. atorvastati 2022-0 Yes [id number] 80mg Take 1 [facility] n 80 mg 4-06 tablet by ity of tablet 00:00: mouth at [place] [address] bedtime. Medical Branch aspirin 81 2022-0 Yes [id number] 81mg Take 1 [facility] mg chewable 4-06 tablet by ity of tablet 00:00: mouth in [place] the Medical morning. Branch pantoprazol 2022-0 Yes [id number] 40mg Take 1 [facility] e 40 mg EC 4-06 tablet by ity of tablet 00:00: mouth in [place] the Medical morning. Branch gabapentin 2022-0 Yes [id number] 300mg Take 1 [facility] 300 mg 4-06 capsule by ity of capsule 00:00: mouth in [place] the Medical morning Branch and 1 capsule at noon and 1 capsule in the evening. glipiZIDE 2022-0 Yes [id number] 10mg Take 1 Un [place] 10 mg 4-06 tablet by ity of tablet 00:00: mouth 2 [place] (two) Medical times Branch daily before breakfast and dinner. lisinopriL 2022-0 Yes [id number] 20mg Take 1 U nivers 20 mg 4-06 tablet by ity of tablet 00:00: mouth in [place] the Medical morning. Branch insulin NPH 2022-0 Yes [id number] 15U inject 15 [facility] and regular 4-06 Units ity of human 70-30 00:00: under the [place] (HUMULIN 00 skin 2 Medical 70/30 U-100 (two) Branch INSULIN) times 100 unit/mL daily (70-30) before injection breakfast and dinner. atorvastati 2022-0 Yes [id number] 80mg Take 1 [facility] n 80 mg 4-06 tablet by ity of tablet 00:00: mouth at [place] 00 bedtime. Medical Branch aspirin 81 2022-0 Yes [id number] 81mg Take 1 [facility] mg chewable 4-06 tablet by ity of tablet 00:00: mouth in [place] 00 the Medical morning. Branch pantoprazol 2022-0 Yes [id number] 40mg Take 1 [facility] e 40 mg EC 4-06 tablet by ity of tablet 00:00: mouth in [place] 00 the Medical morning. Branch gabapentin 2022-0 Yes [id number] 300mg Take 1 [facility] 300 mg 4-06 capsule by ity of capsule 00:00: mouth in [place] the Medical morning Branch and 1 capsule at noon and 1 capsule in the evening. glipiZIDE 2022-0 Yes [id number] 10mg Take 1 Un [facility] 10 mg 4-06 tablet by ity of tablet 00:00: mouth 2 [place] 00 (two) Medical times Branch daily before breakfast and dinner. lisinopriL 0 Yes [id number] 20mg Take 1 U nivers 20 mg 4-06 tablet by ity of tablet 00:00: mouth in [place] the Medical morning. Branch insulin NPH Yes [id number] 15U inject 15 [facility] and regular 4-06 Units ity of human 70-30 00:00: under the [place] (HUMULIN 00 skin 2 [facility] 70/30 U-100 (two) Branch INSULIN) times 100 unit/mL daily (70-30) before injection breakfast and dinner. atorvastati 0 Yes [id number] 80mg Take 1 [facility] n 80 mg 4-06 tablet by ity of tablet 00:00: mouth at [place] 00 bedtime. Medical Branch aspirin 81 0 Yes [id number] 81mg Take 1 [facility] mg chewable 4-06 tablet by ity of tablet 00:00: mouth in [place] the Medical morning. Branch pantoprazol 2022-0 Yes [id number] 40mg Take 1 [facility] e 40 mg EC 4-06 tablet by ity of tablet 00:00: mouth in [place] 00 the Medical morning. Branch gabapentin 2022-0 Yes [id number] 300mg Take 1 [facility] 300 mg 4-06 capsule by ity of capsule 00:00: mouth in [place] the Medical morning Branch and 1 capsule at noon and 1 capsule in the evening. glipiZIDE 2022-0 Yes [id number] 10mg Take 1 Un [facility] 10 mg 4-06 tablet by ity of tablet 00:00: mouth 2 [place] (two) Medical times [place] daily before breakfast and dinner. lisinopriL 2022-0 Yes [id number] 20mg Take 1 U nivers 20 mg 4-06 tablet by ity of tablet 00:00: mouth in [place] the Medical morning. Branch insulin NPH 2022-0 Yes [id number] 15U inject 15 [facility] and regular 4-06 Units ity of human 70-30 00:00: under the [place] (HUMULIN 00 skin 2 Medical 70/30 U-100 (two) Branch INSULIN) times 100 unit/mL daily (70-30) before injection breakfast and dinner. atorvastati 2022-0 Yes [id number] 80mg Take 1 [facility] n 80 mg 4-06 tablet by ity of tablet 00:00: mouth at [place] [address] bedtime. Medical Branch aspirin 81 2022-0 Yes [id number] 81mg Take 1 [facility] mg chewable 4-06 tablet by ity of tablet 00:00: mouth in [place] the Medical morning. Branch pantoprazol 2022-0 Yes [id number] 40mg Take 1 [facility] e 40 mg EC 4-06 tablet by ity of tablet 00:00: mouth in [place] the Medical morning. Branch gabapentin 2022-0 Yes [id number] 300mg Take 1 [facility] 300 mg 4-06 capsule by ity of capsule 00:00: mouth in [place] the Medical morning Branch and 1 capsule at noon and 1 capsule in the evening. glipiZIDE 2022-0 Yes [id number] 10mg Take 1 Un [facility] 10 mg 4-06 tablet by ity of tablet 00:00: mouth 2 [place] (two) Medical [facility] daily before breakfast and dinner. lisinopriL 2022-0 Yes [id number] 20mg Take 1 U nivers 20 mg 4-06 tablet by ity of tablet 00:00: mouth in [place] 00 the Medical morning. Branch insulin NPH 2022-0 Yes [id number] 15U inject 15 [facility] and regular 4-06 Units ity of human 70-30 00:00: under the [place] (HUMULIN 00 skin 2 Medical 70/30 U-100 (two) Branch INSULIN) times 100 unit/mL daily (70-30) before injection breakfast and dinner. atorvastati 2022-0 Yes [id number] 80mg Take 1 [facility] n 80 mg 4-06 tablet by ity of tablet 00:00: mouth at [place] 00 bedtime. Medical Branch aspirin 81 2022-0 Yes [id number] 81mg Take 1 [facility] mg chewable 4-06 tablet by ity of tablet 00:00: mouth in [place] 00 the Medical morning. Branch pantoprazol 2022-0 Yes [id number] 40mg Take 1 [facility] e 40 mg EC 4-06 tablet by ity of tablet 00:00: mouth in [place] 00 the Medical morning. Branch gabapentin 2022-0 Yes [id number] 300mg Take 1 [facility] 300 mg 4-06 capsule by ity of capsule 00:00: mouth in [place] 00 the Medical morning Branch and 1 capsule at noon and 1 capsule in the evening. glipiZIDE 2022-0 Yes [id number] 10mg Take 1 Un [facility] 10 mg 4-06 tablet by ity of tablet 00:00: mouth 2 [place] 00 (two) Medical times Branch daily before breakfast and dinner. lisinopriL 0 Yes [id number] 20mg Take 1 U nivers 20 mg 4-06 tablet by ity of tablet 00:00: mouth in [place] 00 the Medical morning. Branch insulin NPH 0 Yes [id number] 15U inject 15 [facility] and regular 4-06 Units ity of human 70-30 00:00: under the [place] (HUMULIN 00 skin 2 Medical 70/30 U-100 (two) Branch INSULIN) times 100 unit/mL daily (70-30) before injection breakfast and dinner. atorvastati 2022-0 Yes [id number] 80mg Take 1 [facility] n 80 mg 4-06 tablet by ity of tablet 00:00: mouth at [place] 00 bedtime. Medical Branch aspirin 81 2022-0 Yes [id number] 81mg Take 1 [facility] mg chewable 4-06 tablet by ity of tablet 00:00: mouth in [place] 00 the Medical morning. Branch pantoprazol 2022-0 Yes [id number] 40mg Take 1 [facility] e 40 mg EC 4-06 tablet by ity of tablet 00:00: mouth in [place] 00 the Medical morning. Branch gabapentin 2022-0 Yes [id number] 300mg Take 1 [facility] 300 mg 4-06 capsule by ity of capsule 00:00: mouth in [place] the Medical morning Branch and 1 capsule at noon and 1 capsule in the evening. glipiZIDE 2022-0 Yes [id number] 10mg Take 1 Un tat[facility]ana 10 mg 4-06 tablet by ity of tablet 00:00: mouth 2 [place] (two) Medical times [place] daily before breakfast and dinner. lisinopriL 2022-0 Yes [id number] 20mg Take 1 U nivers 20 mg 4-06 tablet by ity of tablet 00:00: mouth in [place] the Medical morning. Branch insulin NPH 2022-0 Yes [id number] 15U inject 15 [facility] and regular 4-06 Units ity of human 70-30 00:00: under the [place] (HUMULIN 00 skin 2 Medical 70/30 U-100 (two) Branch INSULIN) times 100 unit/mL daily (70-30) before injection breakfast and dinner. atorvastati 2022-0 Yes [id number] 80mg Take 1 [facility] n 80 mg 4-06 tablet by ity of tablet 00:00: mouth at [place] [address] bedtime. Medical Branch aspirin 81 2022-0 Yes [id number] 81mg Take 1 [facility] mg chewable 4-06 tablet by ity of tablet 00:00: mouth in [place] the Medical morning. Branch pantoprazol 2022-0 Yes [id number] 40mg Take 1 [facility] e 40 mg EC 4-06 tablet by ity of tablet 00:00: mouth in [place] the Medical morning. Branch gabapentin 2022-0 Yes [id number] 300mg Take 1 [facility] 300 mg 4-06 capsule by ity of capsule 00:00: mouth in [place] the Medical morning Branch and 1 capsule at noon and 1 capsule in the evening. glipiZIDE 2022-0 Yes [id number] 10mg Take 1 Un tat[facility]ana 10 mg 4-06 tablet by ity of tablet 00:00: mouth 2 [place] (two) Medical times [place] daily before breakfast and dinner. lisinopriL 2022-0 Yes [id number] 20mg Take 1 U nivers 20 mg 4-06 tablet by ity of tablet 00:00: mouth in [place] the Medical morning. Branch insulin NPH 2022-0 Yes [id number] 15U inject 15 [facility] and regular 4-06 Units ity of human 70-30 00:00: under the [place] (HUMULIN 00 skin 2 Medical 70/30 U-100 (two) Branch INSULIN) times 100 unit/mL daily (70-30) before injection breakfast and dinner. atorvastati 0 Yes [id number] 80mg Take 1 [facility] n 80 mg 4-06 tablet by ity of tablet 00:00: mouth at [place] [address] bedtime. Medical Branch aspirin 81 0 Yes [id number] 81mg Take 1 [facility] mg chewable 4-06 tablet by ity of tablet 00:00: mouth in [place] 00 the Medical morning. Branch pantoprazol Yes [id number] 40mg Take 1 [facility] e 40 mg EC 4-06 tablet by ity of tablet 00:00: mouth in [place] 00 the Medical morning. Branch gabapentin 0 Yes [id number] 300mg Take 1 [facility] 300 mg 4-06 capsule by ity of capsule 00:00: mouth in [place] 00 the Medical morning Branch and 1 capsule at noon and 1 capsule in the evening. glipiZIDE Yes [id number] 10mg Take 1 Un tat[facility]ana 10 mg 4-06 tablet by ity of tablet 00:00: mouth 2 [place] (two) Medical times Branch daily before breakfast and dinner. lisinopriL Yes [id number] 20mg Take 1 U nivers 20 mg 4-06 tablet by ity of tablet 00:00: mouth in [place] 00 the Medical morning. Branch insulin NPH Yes [id number] 15U inject 15 [facility] and regular 4-06 Units ity of human 70-30 00:00: under the [place] (HUMULIN 00 skin 2 Medical 70/30 U-100 (two) Branch INSULIN) times 100 unit/mL daily (70-30) before injection breakfast and dinner. atorvastati 0 Yes [id number] 80mg Take 1 [facility] n 80 mg 4-06 tablet by ity of tablet 00:00: mouth at [place] [address] bedtime. Medical Branch aspirin 81 0 Yes [id number] 81mg Take 1 [facility] mg chewable 4-06 tablet by ity of tablet 00:00: mouth in [place] 00 the Medical morning. Branch pantoprazol 0 Yes [id number] 40mg Take 1 [facility] e 40 mg EC 4-06 tablet by ity of tablet 00:00: mouth in [place] 00 the Medical morning. Branch gabapentin Yes [id number] 300mg Take 1 [facility] 300 mg 4-06 capsule by ity of capsule 00:00: mouth in [place] 00 the Medical morning Branch and 1 capsule at noon and 1 capsule in the evening. insulin NPH 2022- No [id number] 15U inject 15 [facility] and regular 08-29 04-06 Units ity of human 70-30 00:00: 00:00 under the [place] (HUMULIN 00 :00 skin 2 Medical 70/30 U-100 (two) Branch INSULIN) times 100 unit/mL daily (70-30) before injection breakfast and dinner. insulin NPH 2022- No [id number] 15U inject 15 Univers and regular 08-29 04-06 Units ity of human 70-30 00:00: 00:00 under the [place] (HUMULIN 00 :00 skin 2 Medical 70/30 U-100 (two) Branch INSULIN) times 100 unit/mL daily (70-30) before injection breakfast and dinner. insulin NPH 2022- No [id number] 15U inject 15 [facility] and regular 08-29 04-06 Units ity of human 70-30 00:00: 00:00 under the [place] (HUMULIN 00 :00 skin 2 Medical 70/30 U-100 (two) Branch INSULIN) times 100 unit/mL daily (70-30) before injection breakfast and dinner. insulin NPH 2022- No [id number] 15U inject 15 [facility] and regular 08-29 04-06 Units ity of human 70-30 00:00: 00:00 under the [place] (HUMULIN 00 :00 skin 2 Medical 70/30 U-100 (two) Branch INSULIN) times 100 unit/mL daily (70-30) before injection breakfast and dinner. pantoprazol Yes 40mg Take 40 mg Univers e 1-24 by mouth ity of (PROTONIX) 09:46: daily. [place] 40 mg EC 15 Medical tablet Branch amLODIPine Yes 10mg Take 10 mg U nivers 10 mg 1-24 by mouth ity of tablet 09:46: daily. [place] 15 Medical Branch metoprolol 2022-0 Yes 50mg Take 50 mg U nivers tartrate 50 1-24 by mouth 2 it y of mg tablet 09:46: (two) [place] 15 times Medical daily. Branch clopidogreL 2-0 Yes 75mg Take 75 mg Univers (PLAVIX) 75 1-24 by mouth ity of mg tablet 09:46: daily. [place] [address] Medical Branch atorvastati 2021-0 Yes 80mg Take 80 mg Univers n 80 mg 1-24 by mouth ity of tablet 09:46: at [place] [address] bedtime. Medical Branch amLODIPine 2-0 Yes 10mg Take 10 mg U nivers 10 mg 1-24 by mouth ity of tablet 09:46: daily. [place] [address] Medical Branch metoprolol 2021-0 Yes 50mg Take 50 mg U nivers tartrate 50 1-24 by mouth 2 it y of mg tablet 09:46: (two) [place] 15 times Medical daily. Branch clopidogreL 2-0 Yes 75mg Take 75 mg Univers (PLAVIX) 75 1-24 by mouth ity of mg tablet 09:46: daily. [place] [address] Medical Branch amLODIPine 2-0 Yes 10mg Take 10 mg U nivers 10 mg 1-24 by mouth ity of tablet 09:46: daily. [place] [address] Medical Branch metoprolol 2021-0 Yes 50mg Take 50 mg U nivers tartrate 50 1-24 by mouth 2 it y of mg tablet 09:46: (two) [place] 15 times Medical daily. Branch clopidogreL 2-0 Yes 75mg Take 75 mg Univers (PLAVIX) 75 1-24 by mouth ity of mg tablet 09:46: daily. [place] [address] Medical Branch amLODIPine 2-0 Yes 10mg Take 10 mg U nivers 10 mg 1-24 by mouth ity of tablet 09:46: daily. [place] [address] Medical Branch metoprolol 2-0 Yes 50mg Take 50 mg U nivers tartrate 50 1-24 by mouth 2 it y of mg tablet 09:46: (two) [place] 15 times Medical daily. Branch clopidogreL 2-0 Yes 75mg Take 75 mg Univers (PLAVIX) 75 1-24 by mouth ity of mg tablet 09:46: daily. [place] [address] Medical Branch amLODIPine 2-0 Yes 10mg Take 10 mg U nivers 10 mg 1-24 by mouth ity of tablet 09:46: daily. [place] [address] Medical Branch metoprolol 2022-0 Yes 50mg Take 50 mg U nivers tartrate 50 1-24 by mouth 2 it y of mg tablet 09:46: (two) [place] 15 times Medical daily. Branch clopidogreL 2-0 Yes 75mg Take 75 mg Univers (PLAVIX) 75 1-24 by mouth ity of mg tablet 09:46: daily. [address] amLODIPine 2021-0 Yes 10mg Take 10 mg U nivers 10 mg 1-24 by mouth ity of tablet 09:46: daily. [address] metoprolol 2021-0 Yes 50mg Take 50 mg U nivers tartrate 50 1-24 by mouth 2 it y of mg tablet 09:46: (two) [place] 15 times Medical daily. Branch clopidogreL 2021-0 Yes 75mg Take 75 mg Univers (PLAVIX) 75 1-24 by mouth ity of mg tablet 09:46: daily. [address] amLODIPine 2021-0 Yes 10mg Take 10 mg U nivers 10 mg 1-24 by mouth ity of tablet 09:46: daily. [address] metoprolol 2021-0 Yes 50mg Take 50 mg U nivers tartrate 50 1-24 by mouth 2 it y of mg tablet 09:46: (two) [place] 15 times Medical daily. Branch clopidogreL 2021-0 Yes 75mg Take 75 mg Univers (PLAVIX) 75 1-24 by mouth ity of mg tablet 09:46: daily. [address] amLODIPine 2021-0 Yes 10mg Take 10 mg U nivers 10 mg 1-24 by mouth ity of tablet 09:46: daily. [address] metoprolol 2021-0 Yes 50mg Take 50 mg U nivers tartrate 50 1-24 by mouth 2 it y of mg tablet 09:46: (two) [place] 15 times Medical daily. Branch clopidogreL 2-0 Yes 75mg Take 75 mg Univers (PLAVIX) 75 1-24 by mouth ity of mg tablet 09:46: daily. [address] iopamidol 2021-0 2021- No [id number] 100mL 100 mL, Univers (ISOVUE 08-17 Intravenou [...] dose, On Branch Sun08/17/21 at 0400, Routine
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 butalbital- Yes [id number] 1{tbl} Take 1 [facility] acetaminoph 1-19 tablet by ity of en-caff 00:00: mouth [place] 50-325-40 00 every 6 Medical mg tablet (six) Branch hours as needed (Headache) . butalbital- Yes [id number] 1{tbl} Take 1 [facility] acetaminoph 1-19 tablet by ity of en-caff 00:00: mouth [place] 50-325-40 00 every 6 Medical mg tablet (six) Branch hours as needed (Headache) . butalbital- Yes [id number] 1{tbl} Take 1 [facility] acetaminoph 1-19 tablet by ity of en-caff 00:00: mouth [place] 50-325-40 00 every 6 Medical mg tablet (six) Branch hours as needed (Headache) . butalbital- Yes [id number] 1{tbl} Take 1 [facility] acetaminoph 1-19 tablet by ity of en-caff 00:00: mouth [place] 50-325-40 00 every 6 Medical mg tablet (six) Branch hours as needed (Headache) . butalbital- Yes [id number] 1{tbl} Take 1 [facility] acetaminoph 1-19 tablet by ity of en-caff 00:00: mouth [place] 50-325-40 00 every 6 Medical mg tablet (six) Branch hours as needed (Headache) . butalbital- Yes [id number] 1{tbl} Take 1 [facility] acetaminoph 1-19 tablet by ity of en-caff 00:00: mouth [place] 50-325-40 00 every 6 Medical mg tablet (six) Branch hours as needed (Headache) . butalbital- Yes [id number] 1{tbl} Take 1 [facility] acetaminoph 1-19 tablet by ity of en-caff 00:00: mouth [place] 50-325-40 00 every 6 Medical mg tablet (six) Branch hours as needed (Headache) . butalbital- Yes [id number] 1{tbl} Take 1 [facility] acetaminoph 1-19 tablet by ity of en-caff 00:00: mouth [place] 50-325-40 00 every 6 Medical mg tablet (six) Branch hours as needed (Headache) . butalbital- Yes [id number] 1{tbl} Take 1 [facility] acetaminoph 1-19 tablet by ity of en-caff 00:00: mouth [place] 50-325-40 00 every 6 Medical mg tablet (six) Branch hours as needed (Headache) . butalbital- Yes [id number] 1{tbl} Take 1 [facility] acetaminoph 1-19 tablet by ity of en-caff 00:00: mouth [place] 50-325-40 00 every 6 Medical mg tablet (six) Branch hours as needed (Headache) . butalbital- Yes [id number] 1{tbl} Take 1 [facility] acetaminoph 1-19 tablet by ity of en-caff 00:00: mouth [place] 50-325-40 00 every 6 Medical mg tablet (six) Branch hours as needed (Headache) . butalbital- Yes [id number] 1{tbl} Take 1 [facility] acetaminoph 1-19 tablet by ity of en-caff 00:00: mouth [place] 50-325-40 00 every 6 Medical mg tablet (six) Branch hours as needed (Headache) . butalbital- Yes [id number] 1{tbl} Take 1 [facility] acetaminoph 1-19 tablet by ity of en-caff 00:00: mouth [place] 50-325-40 00 every 6 Medical mg tablet (six) Branch hours as needed (Headache) . butalbital- Yes [id number] 1{tbl} Take 1 [facility] acetaminoph 1-19 tablet by ity of en-caff 00:00: mouth [place] 50-325-40 00 every 6 Medical mg tablet (six) Branch hours as needed (Headache) . butalbital- Yes [id number] 1{tbl} Take 1 [facility] acetaminoph 1-19 tablet by ity of en-caff 00:00: mouth [place] 50-325-40 00 every 6 Medical mg tablet (six) Branch hours as needed (Headache) . atropine Yes 1[drp] 1 Drop, Univ ers (ISOPTO 1-16 Left Eye, ity of ATROPINE) 1 02:00: BID, [facility] [place] % 00 dose on Medical ophthalmic Sat Branch drops 1 08/13/21 at Drop 1999, Until Discontinu ed, Routine dorzolamide Yes 1[drp] 1 Drop, U nivers -timoloL 1-16 Left Eye, ity of (COSOPT) 02:00: BID, First [place] as 22.3-6.8 00 dose on Medical mg/mL Sat Branch ophthalmic 08/13/21 at drops 1 1999, Drop Until Discontinu ed, Routine latanoprost Yes 1[drp] 1 Drop, U nivers (XALATAN) 1-15 Left Eye, ity o f 0.005 % 23:00: QPM, [place] ophthal[place] 00 dose on Medica l drops 1 Sat Branch Drop 08/13/21 at 1700, Until Discontinu ed, Routine prednisoLON 2022-0 Yes 1[drp] 1 Drop, U nivers E acetate 1-15 Left Eye, ity o f (PRED-FORTE 22:00: QID, [facility] ) 1 % 00 dose on Medical ophthalmic Sat Branch suspension 08/13/21 at drops 1 1600, Drop Until Discontinu ed, Routine brimonidine 0 Yes 1[drp] 1 Drop, U nivers (ALPHAGAN) 1-15 Left Eye, ity of 0.2 % 20:00: Q8H, [facility] ophthalmic 00 dose on Medica l solution 1 Sat Branch Drop 08/13/21 at 1400, Until Discontinu ed, Routine pantoprazol 0 Yes 40mg Take 40 mg Univers e 1-02 by mouth ity of (PROTONIX) 06:19: daily. [place] 40 mg EC 05 Medical tablet Branch amLODIPine Yes 10mg Take 10 mg U nivers 10 mg 1-02 by mouth ity of tablet 06:19: daily. [place] [address] Medical Branch metoprolol 0 Yes 50mg Take 50 mg U nivers tartrate 50 1-02 by mouth 2 it y of mg tablet 06:19: (two) [place] 05 times Medical daily. Branch clopidogreL 0 Yes 75mg Take 75 mg Univers (PLAVIX) 75 1-02 by mouth ity of mg tablet 06:19: daily. [place] [address] Medical Branch atorvastati Yes 80mg Take 80 mg [facility] n 80 mg 1-02 by mouth ity of tablet 06:19: at [place] [address] bedtime. Medical Branch pantoprazol 0 Yes 40mg Take 40 mg [facility] e 1-02 by mouth ity of (PROTONIX) 06:19: daily. [place] 40 mg EC 05 Medical tablet Branch amLODIPine 0 Yes 10mg Take 10 mg U nivers 10 mg 1-02 by mouth ity of tablet 06:19: daily. [place] [address] Medical Branch metoprolol 0 Yes 50mg Take 50 mg U nivers tartrate 50 1-02 by mouth 2 it y of mg tablet 06:19: (two) [place] 05 times Medical daily. Branch clopidogreL 2021-0 Yes 75mg Take 75 mg [facility] (PLAVIX) 75 1-02 by mouth ity of mg tablet 06:19: daily. [place] [address] Medical Branch atorvastati Yes 80mg Take 80 mg [facility] n 80 mg 1-02 by mouth ity of tablet 06:19: at [place] [address] bedtime. Medical Branch pantoprazol Yes 40mg Take 40 mg [facility] e 1-02 by mouth ity of (PROTONIX) 06:19: daily. [place] 40 mg EC Medical tablet Branch amLODIPine Yes 10mg Take 10 mg U nivers 10 mg -02 by mouth ity of tablet 06:19: daily. [place] [address] Medical Branch metoprolol Yes 50mg Take 50 mg U nivers tartrate 50 1-02 by mouth 2 it y of mg tablet 06:19: (two) [place] 05 times Medical daily. Branch clopidogreL Yes 75mg Take 75 mg [facility] (PLAVIX) 75 07-31 by mouth ity of mg tablet 06:19: daily. [place] [address] Medical Branch atorvastati Yes 80mg Take 80 mg [facility] n 80 mg 02 by mouth ity of tablet 06:19: at [place] [address] bedtime. Medical Branch insulin NPH Yes 6U 6 Units, Un [place] (HUMULIN N) 1-01 Subcutaneo it y of injection 6 03:00: [...] Yes 1[drp] 1 Drop, U nivers (ALPHAGAN) 2-31 Left Eye, ity of 0.2 % 22:00: Q4H, First [place] ophthalmic 00 dose Medical solution 1 (after Branch Drop last modificati on) on Sun07/29/21 at 1600, Until Discontinu ed, Routine pantoprazol 2020-07 Yes 40mg Take 40 mg Univers e 2-31 by mouth ity of (PROTONIX) 20:34: daily. [place] 40 mg EC 02 Medical tablet Branch amLODIPine 2020-07 Yes 10mg Take 10 mg U nivers 10 mg 2- by mouth ity of tablet 20:34: daily. [place] Medical Branch metoprolol 2020-07 Yes 50mg Take 50 mg U nivers tartrate 50 2-31 by mouth 2 it y of mg tablet 20:34: (two) [place] 02 times Medical daily. Branch clopidogreL 2020-07 Yes 75mg Take 75 mg Univers (PLAVIX) 75 - by mouth ity of mg tablet 20:34: daily. [place] [facility] atorvastati 2020-07 Yes 80mg Take 80 mg Univers n 80 mg 2-31 by mouth ity of tablet 20:34: at [place] 02 bedtime. Medical Branch insulin NPH 2020-07- No 20U inject 20 Univers and regular 12-31 Units ity of human 70-30 18:32: 00:00 under the [place] (NOVOLIN 31 :00 skin 2 Medical 70/30 [...] Until Discontinu ed, Routine artificial 2020-07- No [id number] 1[drp] Place 1 Univers tears, 05- Drop in ity of hypromellos 00:00: 04:59 both eyes [place] e, 0.3 % 00 :00 at bedtime Medic al ophthalmic for 120 Branch gel days. artificial 2020-07- No [id number] 1[drp] Place 1 Univers tears, 05-01 Drop in ity of hypromellos 00:00: 04:59 both eyes [place] e, 0.3 % 00 :00 at bedtime Medic al ophthalmic for 120 Branch gel days. artificial 2020-07- No [id number] 1[drp] Place 1 Univers tears, 05- Drop in ity of hypromellos 00:00: 04:59 both eyes [place] e, 0.3 % 00 :00 at bedtime Medic al ophthalmic for 120 Branch gel days. artificial 2020-07- No [id number] 1[drp] Place 1 Univers tears, 11-27 Drop in ity of hypromellos 00:00: 04:59 both eyes [place] e, 0.3 % 00 :00 at bedtime Medic al ophthalmic for 120 Branch gel days. latanoprost 2020-07- No [id number] 1[drp] Place 1 Univers 0.005 % 10-28 Drop in ity of ophthalmic 00:00: 04:59 left eye [place] drops 00 :00 at bedtime Medical for 90 Branch days. insulin NPH 2020-07- No [id number] 6U inject 6 [facility] 100 unit/mL 10-28 Units ity of injection 00:00: 04:59 under the [place] 00 :00 skin every Medical morning Branch and at bedtime for 90 days. artificial 2020-07- No [id number] 1[drp] Place 1 Univers tears,hypro 10-28 Drop in ity of mellose, 00:00: 04:59 both eyes [place] as 0.5 % 00 :00 4 (four) Medical ophthalmic times Branch drops daily for 90 days. dorzolamide 2020-07- No [id number] 1[drp] Place 1 Univers -timoloL 10-28 Drop in ity of 22.3-6.8 00:00: 04:59 left eye 2 [place] mg/mL 00 :00 (two) Medical ophthalmic times Branch drops daily for 90 days. brimonidine 2020-07- No [id number] 1[drp] Place 1 Univers 0.2 % 10-28 Drop in ity of ophthalmic 00:00: 04:59 left eye [place] solution 00 :00 every 4 Medical (four) Branch hours for 90 days. insulin 2020-07- No [id number] 4U inject 4 [facility] regular 10-28 Units ity of human 100 00:00: 04:59 under the [place] unit/mL 00 :00 skin 2 Medical injection (two) Branch times daily with meals for 90 days. latanoprost 2020-07- No [id number] 1[drp] Place 1 Univers 0.005 % 10-28 Drop in ity of ophthalmic 00:00: 04:59 left eye [place] drops 00 :00 at bedtime Medical for 90 Branch days. insulin NPH 2020-07- No [id number] 6U inject 6 [facility] 100 unit/mL 10-28 Units ity of injection 00:00: 04:59 under the [place] 00 :00 skin every Medical morning Branch and at bedtime for 90 days. artificial 2020-07- No [id number] 1[drp] Place 1 [facility] tears,hypro 10-28 Drop in ity of mellose, 00:00: 04:59 both eyes [place] 0.5 % 00 :00 4 (four) Medical ophthalmic times Branch drops daily for 90 days. dorzolamide 2020-07- No [id number] 1[drp] Place 1 Univers -timoloL 10-28 Drop in ity of 22.3-6.8 00:00: 04:59 left eye 2 [place] mg/mL 00 :00 (two) Medical ophthalmic times Branch drops daily for 90 days. brimonidine 2020-07- No [id number] 1[drp] Place 1 Univers 0.2 % 10-28 Drop in ity of ophthalmic 00:00: 04:59 left eye [place] solution 00 :00 every 4 Medical (four) Branch hours for 90 days. insulin 2020-07- No [id number] 4U inject 4 [facility] regular 10-28 Units ity of human 100 00:00: 04:59 under the [place] unit/mL 00 :00 skin 2 Medical injection (two) Branch times daily with meals for 90 days. latanoprost 2020-07- No [id number] 1[drp] Place 1 Univers 0.005 % 10-28 Drop in ity of ophthalmic 00:00: 04:59 left eye [place] drops 00 :00 at bedtime Medical for 90 Branch days. insulin NPH 2020-07- No [id number] 6U inject 6 [facility] 100 unit/mL 10-28 Units ity of injection 00:00: 04:59 under the [place] 00 :00 skin every Medical morning Branch and at bedtime for 90 days. artificial 2020-07- No [id number] 1[drp] Place 1 Univers tears,hypro 10-28 Drop in ity of mellose, 00:00: 04:59 both eyes [place] 0.5 % 00 :00 4 (four) Medical ophthalmic times Branch drops daily for 90 days. dorzolamide 2020-07- No [id number] 1[drp] Place 1 Univers -timoloL 10-28 Drop in ity of 22.3-6.8 00:00: 04:59 left eye 2 [place] mg/mL 00 :00 (two) Medical ophthalmic times Branch drops daily for 90 days. brimonidine 2020-07- No [id number] 1[drp] Place 1 Univers 0.2 % 10-28 Drop in ity of ophthalmic 00:00: 04:59 left eye [place] solution 00 :00 every 4 Medical (four) Branch hours for 90 days. insulin 2020-07- No [id number] 4U inject 4 [facility] regular 10-28 Units ity of human 100 00:00: 04:59 under the [place] unit/mL 00 :00 skin 2 Medical injection (two) Branch times daily with meals for 90 days. latanoprost 2020-07- No [id number] 1[drp] Place 1 Univers 0.005 % 10-28 Drop in ity of ophthalmic 00:00: 04:59 left eye [place] drops 00 :00 at bedtime Medical for 90 Branch days. insulin NPH 2020-07- No [id number] 6U inject 6 [facility] 100 unit/mL 10-28 Units ity of injection 00:00: 04:59 under the [place] 00 :00 skin every Medical morning Branch and at bedtime for 90 days. artificial 2020-07- No [id number] 1[drp] Place 1 Univers tears,hypro 10-28 Drop in ity of mellose, 00:00: 04:59 both eyes [place] 0.5 % 00 :00 4 (four) Medical ophthalmic times Branch drops daily for 90 days. dorzolamide 2020-07- No [id number] 1[drp] Place 1 Univers -timoloL 10-28 Drop in ity of 22.3-6.8 00:00: 04:59 left eye 2 [place] mg/mL 00 :00 (two) Medical ophthalmic times Branch drops daily for 90 days. brimonidine 2020-07- No [id number] 1[drp] Place 1 Univers 0.2 % 10-28 Drop in ity of ophthalmic 00:00: 04:59 left eye [place] solution 00 :00 every 4 Medical (four) Branch hours for 90 days. insulin 2020-07- No [id number] 4U inject 4 [facility] regular 10-28 Units ity of human 100 00:00: 04:59 under the [place] unit/mL 00 :00 skin 2 Medical injection (two) Branch times daily with meals for 90 days. meclizine 2020-07- No 25mg 25 mg, Unive rs (TRAVEL-EAS 07-29 Oral, ity of E 23:57: 01:58 ONCE, 1 [place] (MECLIZINE) 00 :00 dose, On Medi theron [...] o f human 17:45: 23:16 us, BID [place] (HUMULIN R) 00 :16 MEALS, Medica l injection 7 First dose Br anch Units on [place] 07/28/21 at 1145, Until Discontinu ed, Routine glucagon 2020-07 Yes 1mg 1 mg, Univers (GLUCAGEN - Intramuscu ity of DIAGNOSTIC 17:41: lar, PRN, [...] on [place] 07/28/21 at 0600, Routine artificial 2020-07 Yes 1[drp] 1 Drop, Un [place] tears 2-30 Both Eyes, ity of (hypromello 03:00: QHS, First [place] se) 00 dose on Medical (GENTEAL [place] TEARS 07/27/21 SEVERE GEL) at 2100, 0.3 % Until ophthalmic Discontinu gel 1 Drop ed, Routine latanoprost 2020-07 Yes 1[drp] 1 Drop, U nivers (XALATAN) 2-30 Left Eye, ity o f 0.005 % 03:00: QHS, [place] ophthal[place] 00 dose on Medica l drops 1 Sun Branch Drop 07/27/21 at 2100, Until Discontinu ed, Routine furosemide 2020-07- No 40mg 40 mg, Univ ers (LASIX) 07-29 Slow IV ity of injection 02:00: 14:26 Push, [place] 40 mg 00 :07 Q12H, Medical First dose Branch (after last modificati on) on Sun07/27/21 at 2000, Until Discontinu ed, Routine acetaZOLAMI 2020-07 No 250mg 250 mg, U nivers DE [...] Until Discontinu ed, Routine gadoteridol 2020-07- No [id number] .2mL/kg 16.32 mL Univers (PROHANCE-2 07-27 (0.2 mL/kg i ty of 0 mL) 21:45: 21:45 ?81.6 kg), [place] injection 00 :00 Intravenou Medi theron 16.32 mL s, ONCE, 1 Branc h dose, On Sun07/27/21 at 1545, Routine sulfur 2020-07- No [id number] 5mL 5 mL, Univ ers hexafluorid 07-27 Intravenou i ty of e microsphr 19:15: 19:15 s, ONCE, 1 [place] (LUMASON) 00 :00 dose, On Medica l injection 5 Sun Branch mL 07/27/21 at 1315, Routine
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 Restricted medication : ARLET EH, TAREQ LORazepam 2020-07 No .5mg 0.5 mg, Univ ers (ATIVAN) 07-27 Oral, ity of tablet 0.5 17:30: 19:53 ONCE, 1 [place] mg 00 :00 dose, On Sun Branch 07/27/21 at 1130, Routine enoxaparin [...] Routine clopidogreL 2020-07 Yes 75mg 75 mg, [facility] ers (PLAVIX) Oral, ity of tablet 75 15:00: DAILY, [place] mg 00 First dose Medical on Sun07/27/21 at 0900, Until Discontinu ed, Routine aspirin 2020-07 Yes 81mg 81 mg, Univers chewable Oral, ity of tablet 81 15:00: DAILY, [place] mg 00 First dose Medical on Sun07/27/21 at 0900, Until Discontinu ed, Routine furosemide 2020-07- No 40mg 40 mg, [facility] ers (LASIX) 07-27 Slow IV ity of injection 15:00: 18:46 Push, [place] 40 mg 00 :39 DAILY, Medical First dose Branch on Sun07/27/21 at 0900, Until Discontinu ed, Routine artificial 2020-07 Yes 1[drp] 1 Drop, Un [place] tears(hypro Both Eyes, it y of mellose) 14:00: QID, First [place] (ISOPTO-TEA 00 dose on Medic al RS) 0.5 % [place] ophthalmic 07/27/21 drops 1 at 0800, Drop Until Discontinu ed, Routine dorzolamide 2020-07 Yes 1[drp] 1 Drop, U nivers -timoloL Left Eye, ity of (COSOPT) 14:00: BID, First [place] as 22.3-6.8 00 dose on Medical mg/mL Sun [place] ophthalmic 07/27/21 drops 1 at 0800, Drop Until Discontinu ed, Routine brimonidine 2020-07- No 1[drp] 1 Drop, Univers (ALPHAGAN) 07-28 Left Eye, ity of 0.2 % 12:00: 00:01 Q8H, First [place] ophthalmic 00 :35 dose on Medica l solution 1 [facility] Drop 07/27/21 at 0600, Until Discontinu ed, Routine guaiFENesin 2021-1 2021- No 200mg 200 mg, U nivers 100 mg/5 mL 07-28 Oral, Q6H, i ty of solution 06:00: 18:57 First dose [place] 200 mg 00 :52 on [facility] 07/27/21 Branch at 0000, Until Discontinu ed, Routine magnesium 2020-07 No 4g 4 g, IV Univ ers sulfate in 07-27 Piggyback, it y of water 4 04:30: 05:32 ONCE, 1 [place] gram/50 mL 00 :00 dose, On Medic al (8 %) IV [place] [employer]back 4 07/26/21 g at 2230, Routine atorvastati 2020-07 Yes 80mg 80 mg, Univ ers n (LIPITOR) Oral, QHS, it y of tablet 80 03:00: First dose [place] mg 00 on [facility] 07/26/21 Branch at 2100, Until Discontinu ed, Routine Sliding 2020-07 No Subcutaneo Uni vers Scale 07-28 us, TID ity of Insulin - 03:00: 17:42 MEALS+HS, [place] Lispro 00 :21 First dose Medical (HumaLOG) + on [facility] 07/26/21 Testing at 2100, Until Discontinu ed, Routine benzonatate 2020-07 Yes 200mg 200 mg, Un [place] (TESSALON Oral, TID, ity of PERLES) 02:00: First [place] capsule 200 00 on Medica l mg 07/26/21 Branch at 2000, Until Discontinu ed, Routine metoprolol 2020-07 Yes 50mg 50 mg, Unive rs tartrate Oral, BID, ity o f (LOPRESSOR) 02:00: First dose [place] tablet 50 00 on [facility] mg 07/26/21 Branch at 2000, Until Discontinu ed, Routine gabapentin 2020-07 Yes 300mg 300 mg, Uni vers (NEURONTIN) - Oral, TID, it y of capsule 300 02:00: First dose [place] mg 00 on Sun [facility] 07/26/21 Branch at 2000, Until Discontinu ed, Routine glucagon 2020-07 Yes 1mg 1 mg, Univers (GLUCAGEN Intramuscu ity of DIAGNOSTIC 01:54: lar, PRN, [place] KIT) 31 Starting Medical injection 1 on [facility] mg 07/26/21 at 1954, Until Discontinu ed, REGAN, Blood Glucose < or = 70 mg/dL and patient is unable to swallow or has mental changes. dextrose 50 2020-07 Yes 25mL 25 mL, Univ ers % in water Slow IV ity of (D50W) 01:54: Push, PRN, [place] injection 31 Starting Medica l 25 mL on [facility] 07/26/21 at 1954, Until Discontinu ed, REGAN, Blood Glucose < or = 70 mg/dL and patient is unable to swallow or has mental status changes. furosemide 2020-07- No 20mg 20 mg, Univ ers (LASIX) 07-27 Slow IV ity of injection 01:40: 01:50 Push, [place] 20 mg 00 :00 ONCE, 1 Medical dose, On [facility] 07/26/21 at 1945, Routine acetaminoph 2020-07 Yes 650mg 650 mg, Un [place] en Oral, ity of (TYLENOL) 00:52: Q6HPRN, [place] tablet 650 38 Starting Medic al mg on [facility] 07/26/21 at 1852, Until Discontinu ed, Routine, Pain (scale 1-3) ipratropium 2020-07 Yes 3mL 3 mL, Unive rs -albuteroL Inhalation ity of (DUONEB) 00:47: , Q6HPRN, [place] 0.5 mg-3 21 Starting Medical mg(2.5 mg on [facility] base)/3 mL 07/26/21 nebulizer at 1847, solution 3 Until mL Discontinu ed, Routine, Wheezing, Shortness of Breath amLODIPine 2020-07 Yes 10mg 10 mg, Unive rs (NORVASC) Oral, ity of tablet 10 00:30: DAILY, [place] mg 00 First dose Medical on [facility] 07/26/21 at 1830, Until Discontinu ed, Routine sotrovimab 2020-07- No 500mg 500 mg, IV Univers (XEVUDY) 07-27 Infusion, ity o f 500 mg in 00:15: 02:21 ONCE, [place] NaCl 0.9% 00 :00 Administer Medi theron (NS) 50 mL over 30 Branch MINI-BAG Minutes, On [facility] 07/26/21 at 1815, For [address] able 24 hours refrigerat ed or 6 hours at room temperatur e including transporta tion and infusion time.
clopidogreL 2020-07 No 75mg 75 mg, Uni vers (PLAVIX) 07-27 Oral, ONCE ity of tablet 75 00:05: 01:52 NOW, 1 [place] mg 00 :00 dose, On [facility] 07/26/21 at 1815, Routine aspirin 2020-07 No 81mg 81 mg, Univers chewable 07-27 Oral, ONCE ity of tablet 81 00:05: 01:50 NOW, 1 [place] mg 00 :00 dose, On [facility] 07/26/21 at 1815, Routine NaCl 0.9% 2020-07 No 1000mL at 999 Uni vers (NS) bolus 09-26 mL/hr, ity of infusion 19:15: 20:48 1,000 mL, [place] as 1,000 mL 00 :00 IV Medical Infusion, Branch ONCE, 1 dose, On [facility] 07/26/21 at 1315, REGAN lisinopriL 2020-07 Yes [id number] 20mg Take 1 U nivers 20 mg 1-11 tablet by ity of tablet 00:00: mouth [place] 00 daily. Medical Branch metoprolol 2020-07 Yes [id number] 25mg Take 1 U nivers succinate 1-11 tablet by ity o f XL 25 mg 24 00:00: mouth [place] hr tablet 00 every Medical evening. Branch gabapentin 2020-07 Yes [id number] 300mg Take 1 Univers 300 mg 1-11 capsule by ity of capsule 00:00: mouth 3 [place] 00 (three) Medical times Branch daily. glipiZIDE 2020-07 Yes [id number] 10mg Take 1 Un [place] 10 mg 1-11 tablet by ity of tablet 00:00: mouth 2 [place] 00 (two) Medical times Branch daily before breakfast and dinner. lisinopriL 2020-07 Yes [id number] 20mg Take 1 U nivers 20 mg 1-11 tablet by ity of tablet 00:00: mouth [place] 00 daily. Medical Branch metoprolol 2020-07 Yes [id number] 25mg Take 1 U nivers succinate 1-11 tablet by ity o f XL 25 mg 24 00:00: mouth [place] hr tablet 00 every Medical evening. Branch gabapentin 2020-07 Yes [id number] 300mg Take 1 Univers 300 mg 1-11 capsule by ity of capsule 00:00: mouth 3 [place] 00 (three) Medical times Branch daily. glipiZIDE 2020-07 Yes [id number] 10mg Take 1 Un [place] 10 mg 1-11 tablet by ity of tablet 00:00: mouth 2 [place] 00 (two) Medical times Branch daily before breakfast and dinner. lisinopriL 2020-07 Yes [id number] 20mg Take 1 U nivers 20 mg 1-11 tablet by ity of tablet 00:00: mouth [place] 00 daily. Medical Branch metoprolol 2020-07 Yes [id number] 25mg Take 1 U nivers succinate 1-11 tablet by ity o f XL 25 mg 24 00:00: mouth [place] hr tablet 00 every Medical evening. Branch gabapentin 2020-07 Yes [id number] 300mg Take 1 Univers 300 mg 1-11 capsule by ity of capsule 00:00: mouth 3 [place] 00 (three) Medical times Branch daily. glipiZIDE 2020-07 Yes [id number] 10mg Take 1 Un [place] 10 mg 1-11 tablet by ity of tablet 00:00: mouth 2 [place] 00 (two) Medical times Branch daily before breakfast and dinner. lisinopriL 2020-07 Yes [id number] 20mg Take 1 U nivers 20 mg 1-11 tablet by ity of tablet 00:00: mouth [place] 00 daily. Medical Branch metoprolol 2020-07 Yes [id number] 25mg Take 1 U nivers succinate 1-11 tablet by ity o f XL 25 mg 24 00:00: mouth [place] hr tablet 00 every Medical evening. Branch gabapentin 2020-07 Yes [id number] 300mg Take 1 Univers 300 mg 1-11 capsule by ity of capsule 00:00: mouth 3 [place] 00 (three) Medical times Branch daily. glipiZIDE 2020-07 Yes [id number] 10mg Take 1 Un [place] 10 mg 1-11 tablet by ity of tablet 00:00: mouth 2 [place] 00 (two) Medical times Branch daily before breakfast and dinner. gabapentin 2020-07 Yes [id number] 300mg Take 1 Univers 300 mg 1-11 capsule by ity of capsule 00:00: mouth 3 [place] 00 (three) Medical times Branch daily. gabapentin 2020-07 Yes [id number] 300mg Take 1 Univers 300 mg 1-11 capsule by ity of capsule 00:00: mouth 3 [place] 00 (three) Medical times Branch daily. gabapentin 2020-07 Yes [id number] 300mg Take 1 Univers 300 mg 1-11 capsule by ity of capsule 00:00: mouth 3 [place] 00 (three) Medical times Branch daily. gabapentin 2020-07 Yes [id number] 300mg Take 1 Univers 300 mg 1-11 capsule by ity of capsule 00:00: mouth 3 [place] 00 (three) Medical times Branch daily. gabapentin 2020-07 Yes [id number] 300mg Take 1 Univers 300 mg 1-11 capsule by ity of capsule 00:00: mouth 3 [place] 00 (three) Medical times Branch daily. gabapentin 2020-07- No [id number] 300mg Take 1 Univers 300 mg -06 02-06 capsule by ity of capsule 00:00: 00:00 mouth 3 [place] 00 :00 (three) Medical times Branch daily. gabapentin 2020-07- No [id number] 300mg Take 1 Univers 300 mg 1-11 -06 capsule by ity of capsule 00:00: 00:00 mouth 3 [place] 00 :00 (three) Medical times Branch daily. gabapentin 2020-07- No [id number] 300mg Take 1 Univers 300 mg -06 02-06 capsule by ity of capsule 00:00: 00:00 mouth 3 [place] 00 :00 (three) Medical times Branch daily. gabapentin 2020-07- No [id number] 300mg Take 1 Univers 300 mg -06 02-06 capsule by ity of capsule 00:00: 00:[address] [place] [address] 00 :00 (three) Medical times Branch daily. lisinopriL 2020-07- No [id number] 20mg Take 1 Univers 20 mg -06 10-31 tablet by ity of tablet 00:00: 00:00 mouth [place] 00 :00 daily. Medical Branch metoprolol 2020-07- No [id number] 25mg Take 1 [facility] succinate 08-09 tablet by ity of XL 25 mg 24 00:00: 00:00 mouth [place] hr tablet 00 :00 every Medical evening. Branch glipiZIDE 2020-07- No [id number] 10mg Take 1 U nivers 10 mg 08-09 tablet by ity of tablet 00:00: 00:00 mouth 2 [place] 00 :00 (two) Medical times Branch daily before breakfast and dinner. albuterol 2020-07 Yes [id number] 2{puff} Inhale 2 Univers 90 1-07 Puffs ity of mcg/actuati 00:00: every 4 [place] on inhaler 00 (four) Medical hours as Branch needed for Wheezing or Shortness of Breath. albuterol 2020-07 Yes [id number] 2{puff} Inhale 2 Univers 90 1-07 Puffs ity of mcg/actuati 00:00: every 4 [place] on inhaler 00 (four) Medical hours as Branch needed for Wheezing or Shortness of Breath. albuterol 2020-07 Yes [id number] 2{puff} Inhale 2 Univers 90 1-07 Puffs ity of mcg/actuati 00:00: every 4 [place] on inhaler 00 (four) Medical hours as Branch needed for Wheezing or Shortness of Breath. albuterol 2020-07 Yes [id number] 2{puff} Inhale 2 Univers 90 1-07 Puffs ity of mcg/actuati 00:00: every 4 [place] on inhaler 00 (four) Medical hours as Branch needed for Wheezing or Shortness of Breath. albuterol 2020-07 Yes [id number] 2{puff} Inhale 2 Univers 90 1-07 Puffs ity of mcg/actuati 00:00: every 4 [place] on inhaler 00 (four) Medical hours as Branch needed for Wheezing or Shortness of Breath. albuterol 2020-07 Yes [id number] 2{puff} Inhale 2 Univers 90 1-07 Puffs ity of mcg/actuati 00:00: every 4 [place] on inhaler 00 (four) Medical hours as Branch needed for Wheezing or Shortness of Breath. albuterol 2020-07 Yes [id number] 2{puff} Inhale 2 Univers 90 1-07 Puffs ity of mcg/actuati 00:00: every 4 [place] on inhaler 00 (four) Medical hours as Branch needed for Wheezing or Shortness of Breath. albuterol 2020-07 Yes [id number] 2{puff} Inhale 2 Univers 90 1-07 Puffs ity of mcg/actuati 00:00: every 4 [place] on inhaler 00 (four) Medical hours as Branch needed for Wheezing or Shortness of Breath. methylPREDN 2020-07 Yes [id number] Take by Univers ISolone 4 1-07 mouth ity of mg tablets 00:00: SEE-INSTRU [place] 00 CTIONS. Medical follow Branch package directions benzonatate 2020-07 Yes [id number] 100mg Take 1 [facility] 100 mg 1-07 capsule by ity of capsule 00:00: mouth 3 [place] 00 (three) Medical times Branch daily as needed for Cough. albuterol 2020-07 Yes [id number] 2{puff} Inhale 2 Univers 90 1-07 Puffs ity of mcg/actuati 00:00: every 4 [place] on inhaler 00 (four) Medical hours as Branch needed for Wheezing or Shortness of Breath. methylPREDN 2020-07 Yes [id number] Take by Univers ISolone 4 1-07 mouth ity of mg tablets 00:00: SEE-INSTRU [place] 00 CTIONS. Medical follow Branch package directions benzonatate 2020-07 Yes [id number] 100mg Take 1 Univers 100 mg 1-07 capsule by ity of capsule 00:00: mouth 3 00 (three) Medical times Branch daily as needed for Cough. albuterol 2020-07 Yes [id number] 2{puff} Inhale 2 Univers 90 1-07 Puffs ity of mcg/actuati 00:00: every 4 [place] on inhaler 00 (four) Medical hours as Branch needed for Wheezing or Shortness of Breath. methylPREDN 2020-07 Yes [id number] Take by Univers ISolone 4 1-07 mouth ity of mg tablets 00:00: SEE-INSTRU [place] 00 CTIONS. Medical follow Branch package directions benzonatate 2020-07 Yes [id number] 100mg Take 1 Univers 100 mg 1-07 capsule by ity of capsule 00:00: mouth 3 [place] 00 (three) Medical times Branch daily as needed for Cough. albuterol 2020-07 Yes [id number] 2{puff} Inhale 2 Univers 90 1-07 Puffs ity of mcg/actuati 00:00: every 4 [place] on inhaler 00 (four) Medical hours as Branch needed for Wheezing or Shortness of Breath. methylPREDN 2020-07 Yes [id number] Take by Univers ISolone 4 1-07 mouth ity of mg tablets 00:00: SEE-INSTRU [place] 00 CTIONS. Medical follow Branch package directions benzonatate 2020-07 Yes [id number] 100mg Take 1 Univers 100 mg 1-07 capsule by ity of capsule 00:00: mouth 3 [place] 00 (three) Medical times Branch daily as needed for Cough. albuterol 2020-07 Yes [id number] 2{puff} Inhale 2 Univers 90 1-07 Puffs ity of mcg/actuati 00:00: every 4 [place] on inhaler 00 (four) Medical hours as Branch needed for Wheezing or Shortness of Breath. albuterol 2020-07 Yes [id number] 2{puff} Inhale 2 Univers 90 1-07 Puffs ity of mcg/actuati 00:00: every 4 [place] on inhaler 00 (four) Medical hours as Branch needed for Wheezing or Shortness of Breath. albuterol 2020-07 Yes [id number] 2{puff} Inhale 2 Univers 90 1-07 Puffs ity of mcg/actuati 00:00: every 4 [place] on inhaler 00 (four) Medical hours as Branch needed for Wheezing or Shortness of Breath. albuterol 2020-07 Yes [id number] 2{puff} Inhale 2 Univers 90 1-07 Puffs ity of mcg/actuati 00:00: every 4 [place] on inhaler 00 (four) Medical hours as Branch needed for Wheezing or Shortness of Breath. albuterol 2020-07 Yes [id number] 2{puff} Inhale 2 Univers 90 1-07 Puffs ity of mcg/actuati 00:00: every 4 [place] on inhaler 00 (four) Medical hours as Branch needed for Wheezing or Shortness of Breath. albuterol 2020-07 Yes [id number] 2{puff} Inhale 2 Univers 90 1-07 Puffs ity of mcg/actuati 00:00: every 4 [place] on inhaler 00 (four) Medical hours as Branch needed for Wheezing or Shortness of Breath. albuterol 2020-07 Yes [id number] 2{puff} Inhale 2 Univers 90 1-07 Puffs ity of mcg/actuati 00:00: every 4 [place] on inhaler 00 (four) Medical hours as Branch needed for Wheezing or Shortness of Breath. albuterol 2020-07 Yes [id number] 2{puff} Inhale 2 Univers 90 1-07 Puffs ity of mcg/actuati 00:00: every 4 [place] as on inhaler 00 (four) Medical hours as Branch needed for Wheezing or Shortness of Breath. albuterol 2020-07 Yes [id number] 2{puff} Inhale 2 Univers 90 1-07 Puffs ity of mcg/actuati 00:00: every 4 [place] as on inhaler 00 (four) Medical hours as Branch needed for Wheezing or Shortness of Breath. albuterol 2020-07 Yes [id number] 2{puff} Inhale 2 Univers 90 1-07 Puffs ity of mcg/actuati 00:00: every 4 [place] as on inhaler 00 (four) Medical hours as Branch needed for Wheezing or Shortness of Breath. albuterol 2020-07 Yes [id number] 2{puff} Inhale 2 Univers 90 1-07 Puffs ity of mcg/actuati 00:00: every 4 [place] on inhaler 00 (four) Medical hours as Branch needed for Wheezing or Shortness of Breath. albuterol 2020-07 Yes [id number] 2{puff} Inhale 2 [facility] 90 1-07 Puffs ity of mcg/actuati 00:00: every 4 [place] on inhaler 00 (four) Medical hours as Branch needed for Wheezing or Shortness of Breath. albuterol 2020-07 Yes [id number] 2{puff} Inhale 2 [facility] 90 1-07 Puffs ity of mcg/actuati 00:00: every 4 [place] on inhaler 00 (four) Medical hours as Branch needed for Wheezing or Shortness of Breath. methylPREDN 2020-07- No [id number] Take by Univers ISolone 4 08-05 12-28 mouth ity of mg tablets 00:00: 00:00 SEE-INSTRU [place] 00 :00 CTIONS. Medical follow Branch package directions benzonatate 2020-07- No [id number] 100mg Take 1 [facility] 100 mg 08-05 capsule by ity of capsule 00:00: 00:00 mouth 3 [place] 00 :00 (three) Medical times Branch daily as needed for Cough. doxycycline 2020-07- No [id number] 100mg Take 1 [facility] hyclate 100 08-0518 capsule by i ty of mg capsule 00:00: 05:59 mouth 2 [place] 00 :00 (two) Medical times Branch daily for 10 days. doxycycline 2020-07- No [id number] 100mg Take 1 [facility] hyclate 100 08-0518 capsule by i ty of mg capsule 00:00: 05:59 mouth 2 [place] 00 :00 (two) Medical times Branch daily for 10 days. Lyrica Yes 150 mg, Memoria 8-27 PO, [...] 8-27 BID, 0 l 20:33: Refill(s) Livalo 2018-0 Yes 4 mg, PO, Memori a 8-27 Daily, 0 l 20:33: Refill(s) Metformin 0 Yes 1,000 mg, Mem oria 8-27 PO, BID, 0 l 20:33: Refill(s) metoprolol 0 Yes 25 mg, PO, M emoria tartrate 8-27 Daily, 0 l 20:33: Refill(s) Lyrica 20190 Yes 150 mg, Memoria 8-27 PO, BID, [...] a 8-27 Daily, 0 l 20:33: Refill(s) Glipizide 0 Yes 10 mg, PO, Me moria 8-27 BID, 0 l 20:33: Refill(s) Metformin 0 [...] 8-27 Daily, 0 l 20:33: Refill(s) Metformin 2019-0 Yes 1,000 mg, Mem oria 8-27 PO, BID, 0 l 20:33: Refill(s) metoprolol 2019-0 Yes 25 mg, PO, M emoria tartrate 8-27 Daily, 0 l 20:33: Refill(s) Lyrica 20190 Yes 150 mg, Memoria 8-27 PO, BID, 0 l 20:33: Refill(s) Glipizide 0 Yes 10 mg, PO, Me moria 8-27 BID, 0 l 20:33: Refill(s) metoprolol 0 Yes 25 mg, PO, M emoria tartrate 8-27 Daily, 0 l 20:33: Refill(s) Livalo 0 Yes 4 mg, PO, Memori a 8-27 Daily, 0 l 20:33: Refill(s) Livalo 0 Yes 4 mg, PO, Memori a 8-27 Daily, 0 l 20:33: Refill(s) Lyrica 0 Yes 150 mg, Memoria 8-27 PO, BID, 0 l 20:33: Refill(s) Glipizide 0 Yes 10 mg, PO, Me moria 8-27 BID, 0 l 20:33: Refill(s) Livalo 20190 Yes 4 mg, PO, Memori a 8-27 Daily, 0 l 20:33: Refill(s) Metformin 2019-0 Yes 1,000 mg, Mem oria 8-27 PO, BID, 0 l 20:33: Refill(s) Metformin 2019-0 Yes 1,000 mg, Mem oria 8-27 PO, BID, 0 l 20:33: Refill(s) metoprolol 20190 Yes 25 mg, PO, M emoria tartrate 8-27 Daily, 0 l 20:33: Refill(s) Lyrica 0 Yes 150 mg, Memoria 8-27 PO, BID, 0 l 20:33: Refill(s) Glipizide 0 Yes 10 mg, PO, Me moria 8-27 BID, 0 l 20:33: Refill(s) Livalo 20190 Yes 4 mg, PO, Memori a 8-27 Daily, 0 l 20:33: Refill(s) Metformin 0 Yes 1,000 mg, Mem oria 8-27 PO, BID, 0 l 20:33: Refill(s) metoprolol Yes 25 mg, PO, M emoria tartrate 8-27 Daily, 0 l 20:33: Refill(s) Lyrica 0 Yes 150 mg, Memoria 8-27 PO, BID, 0 l 20:33: Refill(s) Metformin Yes 1,000 [...] tartrate 8-27 Daily, 0 l 20:33: Refill(s) lisinopril 2020- No [id number] 20mg Take 1 [facility] 20 mg 5-23 11-11 tablet by ity of tablet 00:00: 00:00 mouth [place] 00 :00 daily. Medical Branch metoprolol 2020- No [id number] 25mg Take 1 [facility] succinate 5-23 11-11 tablet by ity of XL 25 mg 24 00:00: 00:00 [place] hr tablet 00 :00 every Medical evening. Branch lisinopril 2020- No [id number] 20mg Take 1 [facility] 20 mg 5-23 -11 tablet by ity of tablet 00:00: 00:00 mouth [place] 00 :00 daily. Medical Branch metoprolol 2020- No [id number] 25mg Take 1 [facility] succinate 5-23 11-11 tablet by ity of XL 25 mg 24 00:00: 00:00 mouth [place] hr tablet 00 :00 every Medical evening. Branch prednisoLON Yes [id number] 1[drp] Place 1 [facility] E acetate 1 5-21 9103 Drop in ity o f % 00:00: right eye [place] ophthalmic 00 4 (four) Medic al suspension times Branch drops daily. tobramycin Yes [id number] 1[drp] Place 1 Univers 0.3 % 5-21 9103 Drop in ity of ophthalmic 00:00: right eye [place] drops 00 4 (four) Medical times Branch daily. prednisoLON Yes [id number] 1[drp] Place 1 [facility] E acetate 1 5-21 9103 Drop in ity o f % 00:00: right eye [place] ophthalmic 00 4 (four) Medic al suspension times Branch drops daily. tobramycin Yes [id number] 1[drp] Place 1 Univers 0.3 % 5-21 9103 Drop in ity of ophthalmic 00:00: right eye [place] drops 00 4 (four) Medical times Branch daily. prednisoLON Yes [id number] 1[drp] Place 1 [facility] E acetate 1 5-21 9103 Drop in ity o f % 00:00: right eye [place] ophthalmic 00 4 (four) Medic al suspension times Branch drops daily. tobramycin Yes [id number] 1[drp] Place 1 [facility] 0.3 % 5-21 9103 Drop in ity of ophthalmic 00:00: right eye [place] drops 00 4 (four) Medical times Branch daily. prednisoLON Yes [id number] 1[drp] Place 1 [facility] E acetate 1 5-21 9103 Drop in ity o f % 00:00: right eye [place] ophthalmic 00 4 (four) Medic al suspension times Branch drops daily. tobramycin Yes [id number] 1[drp] Place 1 [facility] 0.3 % 5-21 9103 Drop in ity of ophthalmic 00:00: right eye [place] drops 00 4 (four) Medical times Branch daily. prednisoLON 2020- No [id number] 1[drp] Place 1 [facility] E acetate 1 12-17 9103 Drop in ity of % 00:00: 00:00 right eye [place] ophthalmic 00 :00 4 (four) Medic al suspension times Branch drops daily. tobramycin 2020- No [id number] 1[drp] Place 1 Univers 0.3 % 12-17 9103 Drop in ity of ophthalmic 00:00: 00:00 right eye [place] drops 00 :00 4 (four) Medical times Branch daily. gabapentin 2020- No [id number] 300mg Take 1 [facility] 300 mg 12-05 capsule by ity of capsule 00:00: 00:00 mouth 3 [place] 00 :00 (three) Medical times Branch daily. gabapentin 2020- No [id number] 300mg Take 1 [facility] 300 mg 12-05 capsule by ity of capsule 00:00: 00:00 mouth 3 [place] 00 :00 (three) Medical times Branch daily. GLIPIZIDE Yes [id number] TAKE 1 U nivers 10 mg 4-18 TABLET BY ity of tablet 00:00: MOUTH [place] 00 TWICE Medical DAILY Branch BEFORE BREAKFAST AND DINNER GLIPIZIDE Yes [id number] TAKE 1 U nivers 10 mg 4-18 TABLET BY ity of tablet 00:00: MOUTH [place] 00 TWICE Medical DAILY Branch BEFORE BREAKFAST AND DINNER GLIPIZIDE Yes [id number] TAKE 1 U nivers 10 mg 4-18 TABLET BY ity of tablet 00:00: MOUTH [place] 00 TWICE Medical DAILY Branch BEFORE BREAKFAST AND DINNER GLIPIZIDE Yes [id number] TAKE 1 U nivers 10 mg 4-18 TABLET BY ity of tablet 00:00: MOUTH [place] 00 TWICE Medical DAILY Branch BEFORE BREAKFAST AND DINNER GLIPIZIDE 2020- No [id number] TAKE 1 [facility] 10 mg 4-18 07-26 TABLET BY ity of tablet 00:00: 00:00 MOUTH [place] 00 :00 TWICE Medical DAILY Branch BEFORE BREAKFAST AND DINNER glipiZIDE 2020- No [id number] 10mg Take 1 [facility] 10 mg 3-11 11-11 tablet by ity of tablet 00:00: 00:00 mouth 2 [place] 00 :00 (two) Medical times Branch daily before breakfast and dinner. glipiZIDE 2018-2020- No [id number] 10mg Take 1 [facility] 10 mg 3-11 [...] 00 daily. Medical Branch aspirin 81 2018-0 202- No 81mg Take 1 Univ ers mg chewable 8-30 04-06 tablet by it y of tablet 00:00: 00:00 mouth [place] 00 :00 daily. Medical Branch aspirin 81 2018-0 202- No 81mg Take 1 Univ ers mg chewable 8-30 04-06 tablet by it y of tablet 00:00: 00:00 mouth [place] 00 :00 daily. Medical Branch aspirin 81 2022- No 81mg Take 1 Univ ers mg chewable 8-30 04-06 tablet by it y of tablet 00:00: 00:00 mouth [place] 00 :00 daily. Medical Branch aspirin 81 2022- No 81mg Take 1 Univ ers mg chewable 8-30 04-06 tablet by it y of tablet 00:00: 00:00 mouth [place] 00 :00 daily. Medical Branch acetaminoph Yes 2{tbl} Take [...] hours as needed for Pain (scale 4-6). amlodipine amlodipine No 1 Q1D amlodipine [place] 10 mg 10 mg 10 mg Family tablet Take tablet Take tablet Practic 1 tablet 1 tablet Take 1 e every day every day tablet by oral by oral every day route. route. by oral route. Asprin Ec Asprin Ec No 1 Q1D Asprin Ec [facility] Low Dose 81 Low Dose 81 Low Dose Family mg mg 81 mg Practic tablet,jazmín tablet,jazmín tablet,del e yed release yed release ayed Take 1 Take 1 release tablet tablet Take 1 every day every day tablet by oral by oral every day route. route. by oral route. atorvastati atorvastati No 1 Q1D atorvastat [facility] n 80 mg n 80 mg in 80 mg Famil y tablet Take tablet Take tablet Practic 1 tablet 1 tablet Take 1 e every day every day tablet by oral by oral every day route. route. by oral route. furosemide furosemide No 1 Q1D furosemide [facility] 40 mg 40 mg 40 mg Family tablet Take tablet Take tablet Practic 1 tablet 1 tablet Take 1 e every day every day tablet by oral by oral every day route. route. by oral route. gabapentin gabapentin No 1capsul TID gabapentin [facility] 300 mg 300 mg e(s) 300 mg Family capsule capsule capsule Practi c Take 1 Take 1 Take 1 e capsule 3 capsule 3 capsule 3 times a day times a day times a by oral by oral day by route. route. oral route. glipizide 5 glipizide 5 No 1 BID glipizide [place] mg tablet mg tablet 5 mg Famil y Take 1 Take 1 tablet Practic tablet tablet Take 1 e twice a day twice a day tablet by oral by oral twice a route. route. day by oral route. levothyroxi levothyroxi No 1 Q1D levothyrox [facility] ne 50 mcg ne 50 mcg ine 50 mcg Family tablet Take tablet Take tablet Practic 1 tablet 1 tablet Take 1 e every day every day tablet by oral by oral every day route. route. by oral route. lisinopril lisinopril No 1 Q1D lisinopril [facility] 20 mg 20 mg 20 mg Family tablet Take tablet Take tablet Pract[facility] 1 tablet 1 tablet Take 1 e every day every day tablet by oral by oral every day route. route. by oral route. metformin metformin No 1 BID metformin [facility] 500 mg 500 mg 500 mg Family tablet Take tablet Take tablet [facility] 1 tablet 1 tablet Take 1 e twice a day twice a day tablet by oral by oral twice a route. route. day by oral route. metoprolol metoprolol No 1 BID metoprolol [facility] tartrate 50 tartrate 50 tartrate Family mg tablet mg tablet 50 mg Prac tic Take 1 Take 1 tablet e tablet tablet Take 1 twice a day twice a day tablet by oral by oral twice a route. route. day by oral route. pantoprazol pantoprazol No 1 Q1D pantoprazo [place] e 40 mg e 40 mg le 40 mg Famil y tablet,jazmín tablet,jazmín tablet,del Practic yed release yed release ayed e Take 1 Take 1 release tablet tablet Take 1 every day every day tablet by oral by oral every day route. route. by oral route. Immunizations Ordered Filled Immunization Date Status Comments [facility] e Immunization Name Name Influenza Virus 2022-05-10 Completed Universit y of Vaccine (3+ yrs) 00:00:00 [place] [facility] Influenza Virus 2022-05-10 Completed Universit y of Vaccine (3+ yrs) 00:00:00 [place] [facility] Influenza Virus 2022-05-10 Completed Universit y of Vaccine (3+ yrs) 00:00:00 [place] [facility] Influenza Virus 2022-05-10 Completed Universit y of Vaccine (3+ yrs) 00:00:00 [place] [facility] Influenza Virus 2022-05-10 Completed Universit y of Vaccine (3+ yrs) 00:00:00 [place] [facility] Influenza Virus 2022-05-10 Completed Universit y of Vaccine (3+ yrs) 00:00:00 [place] [facility] Influenza Virus 2022-05-10 Completed Universit y of Vaccine (3+ yrs) 00:00:00 [place] [facility] Influenza Virus 2022-05-10 Completed Universit y of Vaccine (3+ yrs) 00:00:00 [place] [facility] Influenza Virus 2022-05-10 Completed Universit y of Vaccine (3+ yrs) 00:00:00 [place] [facility] Influenza Virus 2022-05-10 Completed Universit y of Vaccine (3+ yrs) 00:00:00 [place] [facility] Influenza Virus 2022-05-10 Completed Universit y of Vaccine (3+ yrs) 00:00:00 [place] [facility] Influenza Virus 2022-05-10 Completed Universit y of Vaccine (3+ yrs) 00:00:00 [place] [facility] Influenza Virus 2022-05-10 Completed Universit y of Vaccine (3+ yrs) 00:00:00 [place] [facility] Influenza Virus 2022-05-10 Completed Universit y of Vaccine (3+ yrs) 00:00:00 [place] [facility] Influenza Virus 2022-05-10 Completed Universit y of Vaccine (3+ yrs) 00:00:00 [place] [facility] Influenza High Dose 2021-05-04 Completed Unive rsity of 00:00:00 [facility] DTAP 2021-05-04 Completed University of 00:00:00 [facility] Influenza High Dose 2021-05-04 Completed Unive rsity of 00:00:00 [facility] DTAP 2021-05-04 Completed University of 00:00:00 [facility] Influenza High Dose 2021-05-04 Completed Unive rsity of 00:00:00 [facility] DTAP 2021-05-04 Completed University of 00:00:00 [facility] Influenza High Dose 2021-05-04 Completed Unive rsity of 00:00:00 [facility] DTAP 2021-05-04 Completed University of 00:00:00 [facility] Influenza High Dose 2021-05-04 Completed Unive rsity of 00:00:00 [facility] DTAP 2021-05-04 Completed University of 00:00:00 [facility] Influenza High Dose 2021-05-04 Completed Unive rsity of 00:00:00 [facility] DTAP 2021-05-04 Completed University of 00:00:00 [facility] Influenza High Dose 2021-05-04 Completed Unive rsity of 00:00:00 [facility] DTAP 2021-05-04 Completed University of 00:00:00 [facility] Influenza High Dose 2021-05-04 Completed Unive rsity of 00:00:00 [facility] DTAP 2021-05-04 Completed University of 00:00:00 [facility] Influenza High Dose 2021-05-04 Completed Unive rsity of 00:00:00 [facility] DTAP 2021-05-04 Completed University of 00:00:00 [facility] Influenza High Dose 2021-05-04 Completed Unive rsity of 00:00:00 [facility] DTAP 2021-05-04 Completed University of 00:00:00 [facility] Influenza High Dose 2021-05-04 Completed Unive rsity of 00:00:00 [facility] DTAP 2021-05-04 Completed University of 00:00:00 [facility] Influenza High Dose 2021-05-04 Completed Unive rsity of 00:00:00 [facility] DTAP 2021-05-04 Completed University of 00:00:00 [facility] Influenza High Dose 2021-05-04 Completed Unive rsity of 00:00:00 [facility] DTAP 2021-05-04 Completed University of 00:00:00 [facility] Influenza High Dose 2021-05-04 Completed Unive rsity of 00:00:00 [facility] DTAP 2021-05-04 Completed University of 00:00:00 [facility] Influenza High Dose 2021-05-04 Completed Unive rsity of 00:00:00 [facility] DTAP 2021-05-04 Completed University of 00:00:00 [facility] Influenza High Dose 2021-05-04 Completed Unive rsity of 00:00:00 [facility] DTAP 2021-05-04 Completed University of 00:00:00 [facility] Influenza High Dose 2021-05-04 Completed Unive rsity of 00:00:00 [facility] DTAP 2021-05-04 Completed University of 00:00:00 [facility] Influenza High Dose 2021-05-04 Completed Unive rsity of 00:00:00 [facility] DTAP 2021-05-04 Completed University of 00:00:00 [facility] Influenza High Dose 2021-05-04 Completed Unive rsity of 00:00:00 [facility] DTAP 2021-05-04 Completed University of 00:00:00 [facility] Influenza High Dose 2021-05-04 Completed Unive rsity of 00:00:00 [facility] DTAP 2021-05-04 Completed University of 00:00:00 [facility] Influenza High Dose 2021-05-04 Completed Unive rsity of 00:00:00 [facility] DTAP 2021-05-04 Completed University of 00:00:00 [facility] Influenza High Dose 2021-05-04 Completed Unive rsity of 00:00:00 [facility] DTAP 2021-05-04 Completed University of 00:00:00 [facility] Influenza High Dose 2021-05-04 Completed Unive rsity of 00:00:00 [facility] DTAP 2021-05-04 Completed University of 00:00:00 [facility] Influenza High Dose 2021-05-04 Completed Unive rsity of 00:00:00 [facility] DTAP 2021-05-04 Completed University of 00:00:00 [facility] SARS-COV-2 COVID-19 2021-04-28 Completed Unive rsity of PFIZER VACCINE 00:00:00 [facility] SARS-COV-2 COVID-19 2021-04-28 Completed Unive rsity of PFIZER VACCINE 00:00:00 [facility] SARS-COV-2 COVID-19 2021-04-28 Completed Unive rsity of PFIZER VACCINE 00:00:00 [facility] SARS-COV-2 COVID-19 2021-04-28 Completed Unive rsity of PFIZER VACCINE 00:00:00 [facility] SARS-COV-2 COVID-19 2021-04-28 Completed Unive rsity of PFIZER VACCINE 00:00:00 [facility] SARS-COV-2 COVID-19 2021-04-28 Completed Unive rsity of PFIZER VACCINE 00:00:00 [facility] SARS-COV-2 COVID-19 2021-04-28 Completed Unive rsity of PFIZER VACCINE 00:00:00 [facility] SARS-COV-2 COVID-19 2021-04-28 Completed Unive rsity of PFIZER VACCINE 00:00:00 [facility] SARS-COV-2 COVID-19 2021-04-28 Completed Unive rsity of PFIZER VACCINE 00:00:00 [facility] SARS-COV-2 COVID-19 2021-04-28 Completed Unive rsity of PFIZER VACCINE 00:00:00 [facility] SARS-COV-2 COVID-19 2021-04-28 Completed Unive rsity of PFIZER VACCINE 00:00:00 [facility] SARS-COV-2 COVID-19 2021-04-28 Completed Unive rsity of PFIZER VACCINE 00:00:00 [facility] SARS-COV-2 COVID-19 2021-04-28 Completed Unive rsity of PFIZER VACCINE 00:00:00 [facility] SARS-COV-2 COVID-19 2021-04-28 Completed Unive rsity of PFIZER VACCINE 00:00:00 [facility] SARS-COV-2 COVID-19 2021-04-28 Completed Unive rsity of PFIZER VACCINE 00:00:00 [facility] SARS-COV-2 COVID-19 2021-04-28 Completed Unive rsity of PFIZER VACCINE 00:00:00 [facility] SARS-COV-2 COVID-19 2021-04-28 Completed Unive rsity of PFIZER VACCINE 00:00:00 [facility] SARS-COV-2 COVID-19 2021-04-28 Completed Unive rsity of PFIZER VACCINE 00:00:00 [facility] SARS-COV-2 COVID-19 2021-04-28 Completed Unive rsity of PFIZER VACCINE 00:00:00 [facility] SARS-COV-2 COVID-19 2021-04-28 Completed Unive rsity of PFIZER VACCINE 00:00:00 [facility] SARS-COV-2 COVID-19 2021-04-28 Completed Unive rsity of PFIZER VACCINE 00:00:00 [facility] SARS-COV-2 COVID-19 2021-04-28 Completed Unive rsity of PFIZER VACCINE 00:00:00 [facility] SARS-COV-2 COVID-19 2021-04-28 Completed Unive rsity of PFIZER VACCINE 00:00:00 [facility] SARS-COV-2 COVID-19 2021-04-28 Completed Unive rsity of PFIZER VACCINE 00:00:00 [facility] SARS-COV-2 COVID-19 2021-04-07 Completed Unive rsity of PFIZER VACCINE 00:00:00 [facility] SARS-COV-2 COVID-19 2021-04-07 Completed Unive rsity of PFIZER VACCINE 00:00:00 [facility] SARS-COV-2 COVID-19 2021-04-07 Completed Unive rsity of PFIZER VACCINE 00:00:00 [facility] SARS-COV-2 COVID-19 2021-04-07 Completed Unive rsity of PFIZER VACCINE 00:00:00 [facility] SARS-COV-2 COVID-19 2021-04-07 Completed Unive rsity of PFIZER VACCINE 00:00:00 [facility] SARS-COV-2 COVID-19 2021-04-07 Completed Unive rsity of PFIZER VACCINE 00:00:00 [facility] SARS-COV-2 COVID-19 2021-04-07 Completed Unive rsity of PFIZER VACCINE 00:00:00 [facility] SARS-COV-2 COVID-19 2021-04-07 Completed Unive rsity of PFIZER VACCINE 00:00:00 [facility] SARS-COV-2 COVID-19 2021-04-07 Completed Unive rsity of PFIZER VACCINE 00:00:00 [facility] SARS-COV-2 COVID-19 2021-04-07 Completed Unive rsity of PFIZER VACCINE 00:00:00 [facility] SARS-COV-2 COVID-19 2021-04-07 Completed Unive rsity of PFIZER VACCINE 00:00:00 [facility] SARS-COV-2 COVID-19 2021-04-07 Completed Unive rsity of PFIZER VACCINE 00:00:00 [facility] SARS-COV-2 COVID-19 2021-04-07 Completed Unive rsity of PFIZER VACCINE 00:00:00 [facility] SARS-COV-2 COVID-19 2021-04-07 Completed Unive rsity of PFIZER VACCINE 00:00:00 [facility] SARS-COV-2 COVID-19 2021-04-07 Completed Unive rsity of PFIZER VACCINE 00:00:00 [facility] SARS-COV-2 COVID-19 2021-04-07 Completed Unive rsity of PFIZER VACCINE 00:00:00 [facility] SARS-COV-2 COVID-19 2021-04-07 Completed Unive rsity of PFIZER VACCINE 00:00:00 [facility] SARS-COV-2 COVID-19 2021-04-07 Completed Unive rsity of PFIZER VACCINE 00:00:00 [facility] SARS-COV-2 COVID-19 2021-04-07 Completed Unive rsity of PFIZER VACCINE 00:00:00 [facility] SARS-COV-2 COVID-19 2021-04-07 Completed Unive rsity of PFIZER VACCINE 00:00:00 [place] [facility] SARS-COV-2 COVID-19 2021-04-07 Completed Unive rsity of PFIZER VACCINE 00:00:00 [facility] SARS-COV-2 COVID-19 2021-04-07 Completed Unive rsity of PFIZER VACCINE 00:00:00 [facility] SARS-COV-2 COVID-19 2021-04-07 Completed Unive rsity of PFIZER VACCINE 00:00:00 [facility] SARS-COV-2 COVID-19 2021-04-07 Completed Unive rsity of PFIZER VACCINE 00:00:00 [facility] Vital Signs Vital Name Observation Time Observation Value Comments Source BP Diastolic 2022-12-19 00:00:00 84 mm[Hg] [facility] Height 2022-12-19 00:00:00 60 [in_i] [facility] BMI (Body Mass 2022-12-19 00:00:00 32.8 kg/m2 [facility] Family Index) Practice BP Systolic 2022-12-19 00:00:00 128 mm[Hg] [facility] Body Weight 2022-12-19 00:00:00 168 [lb_av] [facility] Systolic blood 2022-12-11 20:35:00 151 mm[Hg] Univer sity of pressure [facility] Diastolic blood 2022-12-11 20:35:00 86 mm[Hg] [facility] Heart rate 2022-12-11 20:35:00 74 /min [facility] Body height 2022-12-11 20:35:00 152.4 cm [facility] Body weight 2022-12-11 20:35:00 73.936 kg [facility] BMI 2022-12-11 20:35:00 31.83 kg/m2 [facility] Oxygen saturation in 2022-12-11 20:35:00 100 /min [facility] Arterial blood by [facility] Pulse oximetry Branch Systolic blood 2022-12-07 13:27:00 163 mm[Hg] Univer sity of pressure [facility] Diastolic blood 2022-12-07 13:27:00 79 mm[Hg] Unive rsity of pressure [facility] Heart rate 2022-12-07 13:25:00 79 /min [facility] [place] [facility] Body temperature 2022-12-07 13:25:00 36.67 [place] [facility] [place] [facility] Respiratory rate 2022-12-07 13:25:00 16 /min [facility] [place] [facility] Body height 2022-12-07 13:25:00 152.4 cm [facility] [place] [facility] Body weight 2022-12-07 13:25:00 74.662 kg [facility] [place] [facility] BMI 2022-12-07 13:25:00 32.15 kg/m2 [facility] [place] [facility] Oxygen saturation in 2022-12-07 13:25:00 98 /min University of Arterial blood by [facility] Pulse oximetry Branch Systolic blood 2022-12-03 16:18:00 143 mm[Hg] Univer sity of pressure [place] [facility] Diastolic blood 2022-12-03 16:18:00 77 mm[Hg] Unive rsity of pressure [place] [facility] Heart rate 2022-12-03 16:18:00 67 /min [facility] [place] [facility] Body temperature 2022-12-03 16:18:00 36.67 [place] Univ ers[facility] [place] [facility] Respiratory rate 2022-12-03 16:18:00 18 /min Univ ers[facility] [place] [facility] Oxygen saturation in 2022-12-03 16:18:00 94 /min University of Arterial blood by [facility] Pulse oximetry Branch Body weight 2022-12-03 10:00:00 78.019 kg [facility] [place] [facility] BMI 2022-12-03 10:00:00 33.59 kg/m2 [facility] [place] [facility] Body height 2022-12-02 09:27:00 152.4 cm [facility] [place] [facility] Systolic blood 2022-11-02 13:42:00 168 mm[Hg] Univer sity of pressure [place] [facility] Diastolic blood 2022-11-02 13:42:00 82 mm[Hg] Unive rsity of pressure [place] [facility] Heart rate 2022-11-02 13:15:00 78 /min [facility] [place] [facility] Body temperature 2022-11-02 13:15:00 36.89 [place] Univ [facility] [place] [facility] Respiratory rate 2022-11-02 13:15:00 18 /min Univ ers[facility] [place] [facility] Body height 2022-11-02 13:15:00 152.4 cm [facility] [place] [facility] Body weight 2022-11-02 13:15:00 72.53 kg [facility] [place] [facility] BMI 2022-11-02 13:15:00 31.23 kg/m2 [facility] [place] [facility] Oxygen saturation in 2022-11-02 13:15:00 100 /min [facility] blood by [place] [facility] Pulse oximetry Branch Systolic blood 2021-08-17 11:30:00 134 mm[Hg] Univer sity of pressure [place] [facility] Diastolic blood 2021-08-17 11:30:00 75 mm[Hg] Unive rsity of pressure [place] [facility] Heart rate 2021-08-17 11:30:00 87 /min [facility] [place] [facility] Respiratory rate 2021-08-17 11:30:00 16 /min Univ ers[facility] [place] [facility] Oxygen saturation in 2021-08-17 11:30:00 97 /min [facility] Ar[facility]ial blood by [place] [employer] [facility] Pulse oximetry Branch Body temperature 2021-08-17 08:17:00 36.72 [place] Univ [facility] [place] [facility] Body height 2021-08-17 08:17:00 152.4 cm [facility] [place] [facility] Body weight 2021-08-17 08:17:00 77.111 kg [facility] [place] [facility] BMI 2021-08-17 08:17:00 33.20 kg/m2 [facility] [place] [facility] Systolic blood 2021-08-13 19:35:00 179 mm[Hg] Univer sity of [facility] [place] [facility] Diastolic blood 2021-08-13 19:35:00 89 mm[Hg] Unive rsity of pressure [place] [facility] Heart rate 2021-08-13 19:35:00 83 /min [facility] [place] [facility] Respiratory rate 2021-08-13 19:35:00 18 /min Univ ers[facility] [place] [facility] Oxygen saturation in 2021-08-13 19:35:00 98 /min [facility] blood by [place] [facility] Pulse oximetry Branch Body weight 2021-08-13 17:00:00 81.6 kg [facility] [place] [facility] BMI 2021-08-13 17:00:00 35.13 kg/m2 [facility] Body temperature 2021-08-13 15:33:00 37 [place] [facility] [place] [facility] Systolic blood 2021-07-29 21:37:00 127 mm[Hg] Univer sity of pressure [place] [facility] Diastolic blood 2021-07-29 21:37:00 66 mm[Hg] Unive rsity of pressure [place] [facility] Oxygen saturation in 2021-07-29 21:37:00 100 /min University of Arterial blood by Yeel[facility] theron Pulse oximetry Branch Heart rate 2021-07-29 21:33:00 [...] 16:51:00 108 mm[Hg] Univer sity of pressure [place] [facility] Diastolic blood 2021-06-09 16:51:00 83 mm[Hg] Unive rsity of [facility] [place] [facility] Heart rate 2021-06-09 16:51:00 88 /min [facility] [place] [facility] Body temperature 2021-06-09 16:51:00 37 [place] [facility] [place] [facility] Respiratory rate 2021-06-09 16:51:00 20 /min Univ ersity [facility] [place] [facility] Body height 2021-06-09 16:51:00 152.4 cm [facility] [place] [facility] Body weight 2021-06-09 16:51:00 79.062 kg [facility] [place] [facility] BMI 2021-06-09 16:51:00 34.04 kg/m2 [facility] [place] [facility] Oxygen saturation in 2021-06-09 16:51:00 97 /min University of Arterial blood by Yeel[facility] theron Pulse oximetry Branch Systolic (mm Hg) 2019-03-25 20:31:00 Osito Zambrano Diastolic (mm Hg) 2019-03-25 20:31:00 Guilherme Zambrano Heart Rate 2019-03-25 20:31:00 Rebecca Zambrano Respitory Rate 2019-03-25 20:31:00 Amie Gotti Height 2019-03-25 20:31:00 147.32 cm Rebecca Zambrano Weight 2019-03-25 20:31:00 Rebecca Zambrano BMI Calculated 2019-03-25 20:31:00 Amie Gotti Procedures Procedure Date / Time Performing Clinician Source Performed POCT GLUCOSE (AUTOMATED) 2022-12-03 16:18:00 [facility]) 2022-12-03 12:56:00 [facility]EL 2022-12-03 09:13:00 Ade [facility] (NA, K, CL, CO2, GLUCOSE, Medica l Branch BUN, CREATININE, CA) CBC WITH DIFF 2022-12-03 09:13:00 Ade [facility] POCT GLUCOSE (AUTOMATED) 2022-12-03 02:04:00 [facility] POCT GLUCOSE (AUTOMATED) 2022-12-02 21:23:00 [facility]ín [facility] TRANSTHORACIC ECHO (TTE) 2022-12-02 20:24:03 Jagruti Booker [facility] POCT GLUCOSE (AUTOMATED) 2022-12-02 16:38:00 [facility] POCT GLUCOSE (AUTOMATED) 2022-12-02 12:34:00 oJaquín [facility] BASIC METABOLIC PANEL 2022-12-02 11:39:00 Robert Rosado [facility] (NA, K, CL, CO2, GLUCOSE, Medica l Branch BUN, CREATININE, CA) LIPID PANEL ([id number])(TOTAL 2022-12-02 11:39:00 Paulo Corbett [facility] CHOLESTEROL, Medical Branch TRIGLYCERIDES, HDL) CBC WITH DIFF 2022-12-02 11:39:00 Robert Rosado [facility] XR CHEST 1 VW 2022-12-02 03:59:13 Joaquín Samuels [facility] TROPONIN I 2022-12-02 03:43:00 Joaquín Samuels [facility] COMP. METABOLIC PANEL 2022-12-02 03:43:00 Joaquín Samuels [facility] ([id number]) [facility] [place] CBC WITH DIFF 2022-12-02 03:43:00 Joaquín Samuels [facility] N-TERMINAL PRO-BNP 2022-12-02 03:43:00 Joaquín Samuels [facility] NOTICE OF PRIVACY 2022-12-02 02:57:38 Doctor Unabarryigned, [facility] PRACTICES [place] [facility] [place] CONSENT/REFUSAL FOR 2022-12-02 02:56:34 Doctor Marilu, [facility] DIAGNOSIS AND TREATMENT [facility] [place] REFERRAL- 2022-11-03 05:01:00 Doctor Marilu, [facility] REQUEST/RESPONSE [place] [facility] COMP. METABOLIC PANEL 2022-11-02 14:15:00 Carisa Lizarraga [facility] ([id number]) [facility] [place] CBC WITH DIFF 2022-11-02 14:15:00 Dali Lizarragathia [facility] CT CHEST PULMONARY 2021-08-17 10:41:03 Jason Cantu [facility] ANGIOGRAM Medical Branch LIPASE 2021-08-17 08:51:00 Jason Cantu [facility] TROPONIN I 2021-08-17 08:51:00 Jason Cantu [facility] COMP. METABOLIC PANEL 2021-08-17 08:51:00 Jason Cantu [facility] ([id number]) Medical Branch CBC WITH DIFF 2021-08-17 08:51:00 Jason Cantu [facility] COVID-19 (ID NOW RAPID 2021-08-17 08:51:00 Jason Cantu [facility] TESTING) Medical Branch NOTICE OF PRIVACY 2021-08-17 08:08:15 Doctor Marilu, [facility] PRACTICES [place] [facility] CONSENT/REFUSAL FOR 2021-08-17 08:02:31 Doctor Marilu [facility] DIAGNOSIS AND TREATMENT [facility] [place] AUTHORIZATION FOR RELEASE 2021-08-16 06:01:00 Doctor Marilu, [facility] [place] EXTERNAL PROVIDER RECORDS 2021-08-12 06:01:00 Doctor Marilu, [facility] Name [facility] [place] BASIC METABOLIC PANEL 2021-07-29 20:49:00 [facility] (NA, K, CL, CO2, GLUCOSE, Medica l Branch BUN, CREATININE, CA) POCT GLUCOSE (AUTOMATED) 2021-07-29 19:37:00 Soniya Santo Uni versity [facility] POCT GLUCOSE (AUTOMATED) 2021-07-29 18:11:00 Soniya Santo Uni versity [facility] POCT GLUCOSE (AUTOMATED) 2021-07-29 16:00:00 Soniya Santo Uni versity [facility] POCT GLUCOSE (AUTOMATED) 2021-07-29 14:21:00 Soniya Santo Uni versity [facility] MAGNESIUM 2021-07-29 14:13:00 [facility] BASIC METABOLIC PANEL 2021-07-29 14:13:00 [facility] (NA, K, CL, CO2, GLUCOSE, Medica l Branch BUN, CREATININE, CA) POCT GLUCOSE (AUTOMATED) 2021-07-29 14:07:00 Soniya Santo Uni versity [facility] POCT GLUCOSE (AUTOMATED) 2021-07-29 01:15:00 Soniya Santo Uni [facility]ity [facility] POCT GLUCOSE (AUTOMATED) 2021-07-28 23:22:00 Soniya Santo Uni versity of [facility] CAROTID DUPLEX BILATERAL 2021-07-28 21:03:18 Clarence Silva [facility] - BY VASCULAR LAB [facility] POCT GLUCOSE (AUTOMATED) 2021-07-28 18:50:00 Soniya Santo Uni [facility] POCT GLUCOSE (AUTOMATED) 2021-07-28 17:36:00 Soniya Santo [facility] POCT GLUCOSE (AUTOMATED) 2021-07-28 16:52:00 Soniya Santo [facility] POCT GLUCOSE (AUTOMATED) 2021-07-28 14:37:00 SantoSoniya [facility] MAGNESIUM 2021-07-28 11:27:00 [facility] BASIC METABOLIC PANEL 2021-07-28 11:27:00 [facility] (NA, K, CL, CO2, GLUCOSE, Medica l Branch BUN, CREATININE, CA) CBC WITH DIFF 2021-07-28 11:27:00 [facility] POCT GLUCOSE (AUTOMATED) 2021-07-28 00:37:00 DomingoSoniya [facility] MR BRAIN W WO CONTRAST 2021-07-27 21:39:37 Clarence Silva [facility] MR ORBIT W WO CONTRAST 2021-07-27 21:37:21 Clarence Silva [facility] POCT GLUCOSE (AUTOMATED) 2021-07-27 17:58:00 SantoSoniya orozco [facility] TRANSTHORACIC ECHO (TTE) 2021-07-27 16:30:00 Clarence Silva [facility] COMPLETE W/ CONTRAST Medical [facility] POCT GLUCOSE (AUTOMATED) 2021-07-27 14:29:00 SantoSoniya [facility] HEPATIC FUNCTION PANEL 2021-07-27 11:23:00 Clarence Silva [facility] ([id number]) (ALB,T.PRO,BILI Medical Branch T,BU/BC,ALT,AST,ALK PHOS) BASIC METABOLIC PANEL 2021-07-27 11:23:00 Clarence Silva [facility] (NA, K, CL, CO2, GLUCOSE, Medica l Branch BUN, CREATININE, CA) CBC WITH DIFF 2021-07-27 11:23:00 [facility] TROPONIN I 2021-07-27 11:23:00 Jolynn Marquez [facility] POCT GLUCOSE (AUTOMATED) 2021-07-27 05:21:00 Soniya [facility] US ABDOMEN LIMITED 2021-07-27 02:53:00 Clarence Silva [facility] URINE DRUG (IMMUNOASSAY) 2021-07-27 01:45:00 Clarence Silva [facility] SCREEN PNEUMOCOCCAL ANTIGEN 2021-07-27 01:45:00 Clarence Silva [facility] BLOOD CULTURE SCREEN 2021-07-27 01:44:00 Clarence Silva [facility] LACTATE DEHYDROGENASE 2021-07-27 01:44:00 Clarence Silva [facility] TROPONIN I 2021-07-27 01:44:00 Ricardo [facility] PROTHROMBIN TIME / INR 2021-07-27 01:44:00 Clarence Silva [facility] D-DIMER 2021-07-27 01:44:00 Ricardo [facility] ACTIVATED PARTIAL 2021-07-27 01:44:00 Ricardo [facility] THRFormerly [facility] EXTRA TUBE LAV 2021-07-27 01:44:00 Domingo [facility] PROCALCITONIN 2021-07-27 01:44:00 Ricardo [facility] XR CHEST 1 VW 2021-07-27 01:15:25 Ric[address] [facility] CT HEAD WO CONTRAST 2021-07-27 00:18:19 Clarence Silva [facility] COVID-19 (ID NOW RAPID 2021-07-26 21:03:00 Leslie Larkin U [facility]) [facility] [place] LAB ONLY COVID 2021-07-26 21:03:00 Leslie Larkin [facility] INTERPRETATION [facility] Branch URINALYSIS 2021-07-26 19:11:00 Leslie Larkin [facility] LEGIONELLA URINARY 2021-07-26 19:11:00 Clarence Silva [facility] ANTIGEN TST [facility] URINE CULTURE 2021-07-26 19:11:00 Leslie Larkin [facility] LIPASE 2021-07-26 19:00:00 Leslie Larkin [facility] MAGNESIUM 2021-07-26 19:00:00 Clarence Silva [facility] FERRITIN SERUM 2021-07-26 19:00:00 Clarence Silva [place] [facility] VITAMIN B12, LEVEL 2021-07-26 19:00:00 Clarence Silva [facility] C-REACTIVE PROTEIN 2021-07-26 19:00:00 Clarence Silva [facility] TROPONIN I 2021-07-26 19:00:00 Leslie Larkin [facility] FREE T4 2021-07-26 19:00:00 Lselie Larkin [facility] THYROID STIMULATING 2021-07-26 19:00:00 Leslie Larkin [facility] HORMONE [facility] COMP. METABOLIC PANEL 2021-07-26 19:00:00 Leslie Larkin [facility] ([id number]) [facility] LIPID PANEL ([id number])(TOTAL 2021-07-26 19:00:00 Clarence Silva [facility] CHOLESTEROL, [facility] TRIGLYCERIDES, HDL) ETHANOL 2021-07-26 19:00:00 Clarence Silva [facility] CBC WITH DIFF 2021-07-26 19:00:00 Leslie Larkin [facility] GLYCOSYLATED HEMOGLOBIN 2021-07-26 19:00:00 Leslie Larkin [facility] (A1C) [facility] N-TERMINAL PRO-BNP 2021-07-26 19:00:00 Leslie Larkin [facility] FREE T3 2021-07-26 19:00:00 Leslie Larkin [facility] CONSENT/REFUSAL FOR 2021-07-26 17:46:46 Doctor Unassigned, Zackery [facility] DIAGNOSIS AND TREATMENT [place] [facility] [place] BI SCREENING 2021-07-01 15:02:00 Carisa Lizarraga o f [place] TOMOSYNTHESIS BILATERAL [facility] [place] NOTICE OF PRIVACY 2021-07-01 14:37:14 Doctor Unassjaylin, [facility] PRACTICES [facility] [place] CONSENT/REFUSAL FOR 2021-07-01 14:36:59 Doctor Marissjaylin, Zackery [facility] DIAGNOSIS AND TREATMENT [place] [facility] [place] ASSIGNMENT OF BENEFITS 2021-07-01 14:36:43 Doctor Unass[facility] [place] [facility] Glaucoma Surgery [facility] Appendectomy [facility] Appendectomy [facility] Encounters Start End Encounter Admission Attending Care Care Encounter Source Date/Time Date/Time Type Type Clinicians Facility Department ID 2021-05-27 Emergency [facility] [id number] Univers 20:25:41 [facility] 2023-01-08 2023-01-08 Outpatient Edgar SEYMOUR [facility] [id number] Univers 14:40:00 14:40:00 PIOTRVLADISLAV andres o f [facility] 2023-01-04 2023-01-04 Outpatient R ELHAM [facility] [id number] Univers 00:00:00 00:00:00 CARISA ernestian [facility] 2022-12-19 2022-12-19 Swayam VFP [place] - [id number] V illage 00:00:00 00:00:00 Ash Hand: 7111 Medical - Pract Medical [place] - e Center VM_HOKatelynn_Aruna Barrios, [address] [facility] [address], [place] [address] , Ph. 2022-12-14 2022-12-14 Telephone Elham NJRUBIN [id number] Univers 00:00:00 00:00:00 [facility] [id number] it y of [place] [id number] Duncan as JOSEPH?BLEA [id number] Tn lolly[address] MEDICAL OFFICE BUILDING 2022-12-11 2022-12-11 Outpatient R STAN [facility] [id number] Univers 15:40:00 15:51:27 KENY phyllisy o f [facility] 2022-12-11 2022-12-11 [facility] [id number] Univers 15:40:00 15:51:27 Visit Keny GALEAS [id number] ity of [place].2.7.2.[place] [id number] [facility] 0[address] [facility] 2022-12-07 2022-12-07 Office [facility] [id number] Univers 08:30:00 09:14:14 Visit Carisa HEALTH [id number] it y of [place] [id number] Duncan as JOSEPH?BLEA [id number] [facility] 044 [facility] OFFICE [facility] 2022-12-07 2022-12-07 [facility] [id number] Univers 08:30:00 09:14:14 CARISA ity of [facility] 2022-12-06 2022-12-06 Telephone [facility] [id number] Univers 00:00:00 00:00:00 Carisa HEALTH [id number] it y of [place] 4.2.7.2.686 Duncan as JOSEPH?BLEA [id number] [address] OFFICE [facility] 2022-12-05 2022-12-05 Transition JEREMIAH [place] [id number] Univers 00:00:00 00:00:00 of Care Jayde TORRES [id number] [place]2.[place] [id number] [address] 2022-12-01 2022-12-03 Inpatient U ASHLEE [facility] [id number] Univers 22:21:00 15:46:00 ROBERT campos o f [facility] 2022-12-01 2022-12-03 [facility] Joaquín Samuels [facility] 1.2.840. [id number] Univers 22:21:00 15:46:00 Encounter Jagruti Booker HEALTH 350.1.13.10 ity of Robert Rosado [place]AR 4.2.7.2.686 [facility] [id number] [facility] 109 Branch ([employer]) 2022-11-30 2022-11-30 Outpatient Prakash_S VFP VFP [id number] [facility]20 [facility] 00:00:00 00:00:00 [id number] Family Practic e 2022-11-30 2022-11-30 Outpatient Prakash_S VFP VFP [id number] [facility]20 [facility] 00:00:00 00:00:00 [id number] Family Practic e 2022-11-30 2022-11-30 Telephone Elham [facility] [id number] Univers 00:00:00 00:00:00 Carisa HEALTH 350.1.13.10 it y of [place] 4.2.7.2.686 [place] as JOSEPH?BLEA [id number] [facility] [address] [place] MEDICAL OFFICE BUILDING 2022-11-03 2022-11-03 Orders Doctor NAYELY [id number] Univers 00:00:00 00:00:00 Only Unassigned, KRIS 350.1.13.10 ity of [place] [facility] 4.2.7.2.686 [place] as [phone] [place] [address] Branch 2022-11-02 2022-11-02 [employer] [employer], Ang - Rubin [facility] [id number] Univers 09:45:00 10:00:00 Visit Carisa Lizarraga HEALTH 350.1.13.10 ity [facility] 4.2.7.2.686 [place] as JOSEPH?BLEA [id number] [facility] [address] [place] MEDICAL OFFICE BUILDING 2022-11-02 2022-11-02 Outpatient R ELHAM [facility] [id number] Univers 08:00:00 09:03:49 CARISA ity of [facility] 2022-11-02 2022-11-02 Office Elham [facility] [id number] Univers 08:00:00 09:03:49 Visit Carisa HEALTH 350.1.13.10 it y of [place] 4.2.7.2.686 [place] as JOSEPH?BLEA [id number] Tn kenneth SALGADO [address] [place] [address] MEDICAL OFFICE BUILDING 2022-08-08 2022-08-08 Outpatient SFA SFA [id number] Serafin 15:49:16 15:49:16 0110 F Lukas 2022-06-06 2022-06-06 Outpatient R STAN, [facility] [id number] Univers 14:40:00 14:40:00 KENY ity o f [facility] 2021-08-17 2021-08-17 Emergency X [facility] ERT [id number] Univers 02:20:00 06:03:00 BARONBALDEMAR ity [facility] 2021-08-17 2021-08-17 Emergency [facility] [id number] Univers 02:20:00 06:03:00 Jason Maurer [place] 350.1.13.10 ity of [place] 4.2.7.2.[place] [id number] [facility] 0[address] [place] 2021-08-16 2021-08-16 Orders Doctor NAYELY 1.2.840.114 [id number] Univers 00:00:00 00:00:00 Only Unassigned, KRIS 350.1.13.10 ity of [place] [facility] 4.2.7.2.686 Duncan as [id number] [facility] 00[address] [place] 2021-08-13 2021-08-13 Emergency X [facility] ERT [id number] Univers 09:33:00 13:48:00 MARGOT ity [facility] 2021-08-13 2021-08-13 Emergency Alexandro, TRAUMA 1.2.840.114 [id number] Univers 09:33:00 13:48:00 Margot S [place] 350.1.13.10 [place] [id number] [facility] 014 [place] 2021-08-12 2021-08-12 Orders Doctor NAYELY 1.2.840.114 [id number] Univers 00:00:00 00:00:00 Only Unassigned, KRIS 350.1.13.10 ity of [facility] 4.2.7.2.686 Duncan as [id number] [facility] 009 Branch 2021-07-26 2021-07-29 Inpatient X DOMINGO [facility] [place] [id number] Univers 11:48:00 18:19:00 SONIYA campos [facility] 2021-07-26 2021-07-29 [facility] Leslie Larkin [id number] Univers 11:48:00 18:19:00 Encounter Soniya Santo 350.1 .13.10 ity of [facility] 4.2.7.2.686 [place] as [id number] [facility] 099 Branch 2021-07-28 2021-07-28 [facility] [id number] Univers 10:30:00 10:30:00 CARISA campos [facility] 2021-07-14 2021-07-14 [facility] [id number] Univers 11:00:00 11:00:00 CARISAYURIY campos [facility] 2021-07-01 2021-07-01 [facility] [id number] Univers 08:39:06 23:59:00 CARISAYURIY campos [facility] 2021-07-01 2021-07-01 [facility] 1.2.840.114 [id number] Univers 08:39:06 23:59:00 Encounter Carisa GALEAS 350.1.13.10 ity of [place] 4.2.7.2.686 [place] [facility] [id number] [facility] 800 Branch 2021-07-01 2021-07-01 Out[facility] [id number] Univers 00:00:00 00:00:00 CARISA campos [facility] 2021-06-15 2021-06-15 Telephone [facility] [id number] Univers 00:00:00 00:00:00 Carisa [facility] 350.1.13.10 it y of [place] 4.2.7.2.686 Dnucan as JOSEPH?BLEA [id number] [address] MEDICAL OFFICE [facility] 2021-06-09 2021-06-09 Out[facility] [id number] Univers 11:00:00 11:41:41 CARISA campos [facility] 2021-06-09 2021-06-09 Office [facility] 1.2.840.114 [id number] Univers 10:37:35 11:41:41 Visit Carisa [facility] 350.1.13.10 it y [facility] 4.2.7.2.686 [place] as JOSEPH?BLEA [id number] [address] OFFICE [facility] 2021-06-09 2021-06-09 Outpatient R ELHAM [facility] [id number] Univers 11:00:00 11:00:00 CARISA campos [facility] 2021-06-09 2021-06-09 Orders Doctor ADLER 1.2.840.114 [id number] Univers 00:00:00 00:00:00 Only Unassigned, KRIS 350.1.13.10 ity of [place] [facility] 4.2.7.2.686 Duncan as [id number] [address] 2021-06-05 2021-06-05 Emergency [facility] ERT [id number] Univers 09:49:00 11:14:00 ABIGAIL phyllisernestina [facility] 2021-06-05 2021-06-05 Emergency [facility] [id number] Univers 09:49:00 11:14:00 Abigail GALEAS 350.1.13.10 i ty [facility] [place] [id number] [facility] [address] [place] 2021-06-05 2021-06-05 Orders Doctor ADLER 1.2.840.114 [id number] Univers 00:00:00 00:00:00 Only Unassigned, KRIS 350.1.13.10 [facility] [place] [facility] 4.2.7.2.686 [place] [phone] [facility] [address] [place] 2021-04-05 2021-04-05 Orders Doctor ADLER 1.2.840.114 [id number] Univers 00:00:00 00:00:00 Only Unassigned, KRIS 350.1.13.10 [facility] of [place] [facility] 42.7.2.686 [place] as [phone] [facility] [address] [place] 2020-04-29 2020-04-29 Emergency Willian, TRAUMA 1.2.369.552 [id number] Univers 08:26:00 13:26:00 [facility] 350.1.13.10 [place] [id number] [facility] [address] 2019-03-25 2019-03-26 Outpatient nullFlavo MNA [id number] Memoria 20:00:00 04:59:59 r Neurology 00 l Lily Jermyn 2019-03-25 2019-03-26 Outpatient nullFlavo MNA [id number] Memoria 20:00:00 04:59:59 r Neurology 00 l Lily Jermyn 2019-03-25 2019-03-25 Outpatient MADELINE CarterMISCHCALVIN [id number] 15:00:00 23:59:59 Luis E 00 Guido 2019-03-25 2019-03-25 Outpatient MHIE MHIE [id number] Mem[place] 15:00:00 15:00:00 00 l Juan Manuel 2019-03-10 2019-03-10 Case Francisca NAYELY 1.2.840.114 [id number] Univers 00:00:00 00:00:00 Management , Nivia PONCE 350.1.13.10 ity of HOSPITAL 42.7.2.686 [place] as [id number] [facility] [address] 2019-02-13 2019-02-13 Orders Doctor NAYELY 1.2.840.114 [id number] Univers 00:00:00 00:00:00 Only Unassigned, KRIS 350.1.13.10 ity of [place] [facility] 4.2.7.2.686 [place] as [id number] [address] Results Test Description Test Time Test Comments Results Result Comments Source POCT GLUCOSE (AUTOMATED) 2022-12-03 16:24:28 Test Item Value Reference Range Interpretation Comme nts POCT GLU (test code = 7536880871) 202 mg/dL 70-110 H Lab Interpretation (test code = 66991-7) Abnormal [facility] GLUCOSE (AUTOMATED)2022-12-03 13:04:24 Test Item Value Reference Range Interpretation Comments POCT GLU (test code = 4398864672) 93 mg/dL 70-110 Lab Interpretation (test code = Normal 14711-4) [facility] GLUCOSE (AUTOMATED)2022-12-03 02:05:53 Test Item Value Reference Range Interpretation Comments POCT GLU (test code = 9097704741) 279 mg/dL 70-110 H Lab Interpretation (test code = Abnormal 46878-8) [facility] GLUCOSE (AUTOMATED)2022-12-02 21:28:41 Test Item Value Reference Range Interpretation Comments POCT GLU (test code = 1451927474) 162 mg/dL 70-110 H Lab Interpretation (test code = Abnormal 15746-6) [facility] GLUCOSE (AUTOMATED)2022-12-02 16:57:12 Test Item Value Reference Range Interpretation Comments POCT GLU (test code = 3096612423) 141 mg/dL 70-110 H Lab Interpretation (test code = Abnormal 23836-1) [facility] GLUCOSE (AUTOMATED)2022-12-02 12:37:21 Test Item Value Reference Range Interpretation Comments POCT GLU (test code = 5681988624) 99 mg/dL 70-110 Lab Interpretation (test code = Normal 55498-3) [facility] [id number] 04:35:59 Test Item Value Reference Range Interpretation Comments TROPONIN I (test code = 0.003 ng/mL <=0.034 8387042867) CLARI (test code = CLARI) Reference (Normal) [...] biotin. Lab Interpretation Normal (test code = 59879-4) [facility] [place] [facility]AL [id number] 04:34:23 Test Item Value Reference Range Interpretation Comments NT-proBNP (test code = 1490 pg/mL <=125 H 0384646468) CLARI (test code = CLARI) Biotin has been reported to cause a negative bias, interpret results relative to patient's use of biotin. Lab Interpretation (test Abnormal code = 97927-8) [facility] MET[facility]OLIC PANEL (54917)2022-12-02 04:24:01 Test Item Value Reference Range Interpretation Comments NA (test code = 136 mmol/L 135-145 4469878309) K (test code = 4.9 mmol/L 3.5-5.0 2560909181) CL (test code = 103 mmol/L 98-108 1648077214) CO2 TOTAL (test code = 26 mmol/L 23-31 5971706393) AGAP (test code = 7 2-16 6701777152) BUN (test code = 29 mg/dL 7-23 H 1729683445) GLUCOSE (test code = 85 mg/dL 70-110 7887116969) CREATININE (test code = 1.44 mg/dL 0.50-1.04 H 5736046717) TOTAL BILI (test code = 0.6 mg/dL 0.1-1.7 3081500265) CALCIUM (test code = 8.9 mg/dL 8.6-10.6 0086208646) T PROTEIN (test code = 6.7 g/dL 6.3-8.2 2171398181) ALBUMIN (test code = 3.6 g/dL 3.5-5.0 1803175261) ALK PHOS (test code = 160 U/L 34-122 H 4645734637) ALTv (test code = 74 U/L 5-35 H 1742-6) AST(SGOT) (test code = 113 U/L 13-40 H 9837986639) eGFR (test code = 37.8 mL/min/1.73m2 8268048742) CLARI (test code = CLARI) Association of [...] tests). Lab Interpretation Abnormal (test code = 27042-6) [facility] WITH [id number] 04:12:21 Test Item Value Reference Range Interpretation Comments WBC (test code = 11.93 See_Comment H [Automated 1490-2) message] The sy stem which generated this result transmitted reference range : 4.30 - 11.10 10*3/?L. The reference range was not used to interpret this result as normal/abnormal . RBC (test code = 3.20 See_Comment L [Automated 789-8) message] The sy stem which generated this result transmitted reference range : 3.93 - 5.25 10*6/?L. The reference range was not used to interpret this result as normal/abnormal . HGB (test code = 8.6 g/dL 11.6-15.0 L 718-7) HCT (test code = 28.0 % 35.7-45.2 L 4544-3) MCV (test code = 87.5 fL 80.6-95.5 787-2) MCH (test code = 26.9 pg 25.9-32.8 785-6) MCHC (test code = 30.7 g/dL 31.6-35.1 L 786-4) RDW-SD (test code = 41.0 fL 39.0-49.9 46878-2) RDW-CV (test code = 12.9 % 12.0-15.5 788-0) PLT (test code = 385 See_Comment H [Automated 777-3) message] The sy stem which generated this result transmitted reference range : 166 - 358 10*3/ ?L. The reference r rigo was not used to interpret this result as normal/abnormal . MPV (test code = 9.9 fL 9.5-12.9 02352-7) NRBC/100 WBC (test 0.0 See_Comment [Automat ed code = 6039771916) message] The system which generated this result transmitted reference range : 0.0 - 10.0 /100 WBCs. The refer ence range was not u sed to interpret th is result as normal/abnormal . NRBC x10^3 (test code See_Comment [Auto mated = 8517602943) message] The s ystem which generated this result transmitted reference range : 10*3/?L. The reference range was not used to interpret this result as normal/abnormal . GRAN MAT (NEUT) % 53.7 % (test code = 770-8) IMM GRAN % (test code 0.50 % = 0889867818) LYMPH % (test code = 32.8 % 736-9) MONO % (test code = 7.8 % 5905-5) EOS % (test code = 3.8 % 713-8) BASO % (test code = 1.4 % 706-2) GRAN MAT x10^3(ANC) 6.41 10*3/uL 1.88-7.09 (test code = 4724732722) IMM GRAN x10^3 (test 0.06 10*3/uL 0.00-0.06 code = 8738368769) LYMPH x10^3 (test code 3.91 10*3/uL 1.32-3.29 H = 731-0) MONO x10^3 (test code 0.93 10*3/uL 0.33-0.92 H = 742-7) EOS x10^3 (test code = 0.45 10*3/uL 0.03-0.39 H 711-2) BASO x10^3 (test code 0.17 10*3/uL 0.01-0.07 H = 704-7) Lab Interpretation Abnormal (test code = 89681-3) [facility]TR[facility] [id number] 09:49:15 Test Item Value Reference Interpretation Comments Range TROPONIN I (test 0.017 ng/mL See_Comment [Automated code = 0208188880) message] The system which generated this result [...] biotin. Lab Interpretation Normal (test code = 07222-1) [facility] CenterCOMP[facility] METABOLIC PANEL (85254)2021-08-17 09:38:11 Test Item Value Reference Range Interpretation Comments NA (test code = 129 mmol/L 135-145 L 9835239164) K (test code = 4.4 mmol/L 3.5-5.0 2992814861) CL (test code = 94 mmol/L 98-108 L 7370683434) CO2 TOTAL (test code = 25 mmol/L 23-31 6864361592) AGAP (test code = 2-16 0793756277) BUN (test code = 23 mg/dL 7-23 1610820521) GLUCOSE (test code = 228 mg/dL 70-110 H 7195730281) CREATININE (test code = 1.26 mg/dL 0.50-1.04 H 9750403931) TOTAL BILI (test code = 0.8 mg/dL 0.1-1.9 5510355552) CALCIUM (test code = 9.4 mg/dL 8.6-10.6 0104374975) T PROTEIN (test code = 7.4 g/dL 6.3-8.2 5169228798) ALBUMIN (test code = 3.7 g/dL 3.5-5.0 8708559713) ALK PHOS (test code = 249 U/L 34-122 H 0693011949) ALTv (test code = 18 U/L 5-35 1742-6) AST(SGOT) (test code = 35 U/L 13-40 6086832851) eGFR (test code = mL/min/1.73m2 0763566735) CLARI (test code = CLARI) Association of [...] tests). Lab Interpretation Abnormal (test code = 56662-2) [facility] CenterLIPASE2022-01-19 09:37:35 Test Item Value Reference Range Interpretation Comments LIPASE (test code = 5974275272) 142 U/L 0-220 Lab Interpretation (test code = Normal 90733-8) [facility] WITH [id number] 09:16:28 Test Item Value Reference Range Interpretation [...] (test code = 37.8 fL 39.0-49.9 L 26212-0) RDW-CV (test code = 13.2 % 12.0-15.5 788-0) PLT (test code = See_Comment H [Automated 777-3) message] The sy stem which generated this result transmitted reference range : 166 - 358 10*3/ ?L. The reference r rigo was not used to interpret this result as normal/abnormal . MPV (test code = 9.7 fL 9.5-12.9 08105-3) NRBC/100 WBC (test See_Comment [Automat ed code = 4734250541) message] The system which generated this result transmitted reference range : 0.0 - 10.0 /100 WBCs. The refer ence range was not u sed to interpret th is result as normal/abnormal . NRBC x10^3 (test code <0.01 See_Comment [Auto mated = 2695111930) message] The s ystem which generated this result transmitted reference range : 10*3/?L. The reference range was not used to interpret this result as normal/abnormal . GRAN MAT (NEUT) % 65.3 % (test code = 770-8) IMM GRAN % (test code 0.30 % = 5900091660) LYMPH % (test code = 24.4 % 736-9) MONO % (test code = 6.9 % 5905-5) EOS % (test code = 1.8 % 713-8) BASO % (test code = 1.3 % 706-2) GRAN MAT x10^3(ANC) 6.79 10*3/uL 1.88-7.09 (test code = 6669961598) IMM GRAN x10^3 (test 0.03 10*3/uL 0.00-0.06 code = 0234266490) LYMPH x10^3 (test code 2.54 10*3/uL 1.32-3.29 = 731-0) MONO x10^3 (test code 0.72 10*3/uL 0.33-0.92 = 742-7) EOS x10^3 (test code = 0.19 10*3/uL 0.03-0.39 711-2) BASO x10^3 (test code 0.13 10*3/uL 0.01-0.07 H = 704-7) Lab Interpretation Abnormal (test code = 29359-3) [facility] METABOLIC PANEL (NA, K, CL, CO2, GLUCOSE, BUN, CREATININE, CA)2021-07-29 21:22:13 Test Item Value Reference Range Interpretation Comments NA (test code = 135 mmol/L 135-145 1545963206) K (test code = 4.1 mmol/L 3.5-5.0 6647712608) CL (test code = 101 mmol/L 98-108 2204606188) CO2 TOTAL (test code = 29 mmol/L -31 6351305207) AGAP (test code = 2-16 8260683362) BUN (test code = 20 mg/dL 7-23 7147438340) GLUCOSE (test code = 208 mg/dL 70-110 H 4164796577) CREATININE (test code = 1.39 mg/dL 0.50-1.04 H 6617516193) CALCIUM (test code = 8.1 mg/dL 8.6-10.6 L 0423913180) eGFR (test code = mL/min/1.73m2 6641345362) CLARI (test code = CLARI) Association of [...] tests). Lab Interpretation Abnormal (test code = 29468-1) [facility] GLUCOSE (AUTOMATED)2021-07-29 19:42:24 Test Item Value Reference Range Interpretation Comments POCT GLU (test code = 1936716077) 305 mg/dL 70-110 H Lab Interpretation (test code = Abnormal 78757-6) [facility] GLUCOSE (AUTOMATED)2021-07-29 18:15:14 Test Item Value Reference Range Interpretation Comments POCT GLU (test code = 0232341714) 139 mg/dL 70-110 H Lab Interpretation (test code = Abnormal 51992-0) [facility])2021-07-29 16:02:50 Test Item Value Reference Range Interpretation Comments POCT GLU (test code = 7168580550) 150 mg/dL 70-110 H Lab Interpretation (test code = Abnormal 02764-5) [facility] METABOLIC PANEL (NA, K, CL, CO2, GLUCOSE, BUN, CREATININE, CA)2021-07-29 14:44:49 Test Item Value Reference Range Interpretation Comments NA (test code = 137 mmol/L 135-145 0812269810) K (test code = 3.7 mmol/L 3.5-5.0 4213657479) CL (test code = 100 mmol/L 98-108 5676079263) CO2 TOTAL (test code = 32 mmol/L 23-31 H 0827407527) AGAP (test code = 2-16 7611498557) BUN (test code = 22 mg/dL 7-23 7719908645) GLUCOSE (test code = 70 mg/dL 70-110 8110636036) CREATININE (test code = 1.44 mg/dL 0.50-1.04 H 1119114122) CALCIUM (test code = 8.4 mg/dL 8.6-10.6 L 3682875653) eGFR (test code = mL/min/1.73m2 5181118725) CLARI (test code = CALRI) Association of Glomerular Filtration Rate (GFR) and [...] tests). Lab Interpretation Abnormal (test code = 87807-7) [facility] 14[facility]44[facility]49 Test Item Value Reference Range Interpretation Comments MAGNESIUM (test code = 8229452509) 1.8 mg/dL 1.7-2.4 Lab Interpretation (test code = Normal 35707-1) [facility] GLUCOSE (AUTOMATED)2021-07-29 14:23:37 Test Item Value Reference Range Interpretation Comments POCT GLU (test code = 6492069312) 68 mg/dL 70-110 L Lab Interpretation (test code = Abnormal 60548-1) [facility] GLUCOSE (AUTOMATED)2021-07-29 14:09:04 Test Item Value Reference Range Interpretation Comments POCT GLU (test code = 0691403644) 69 mg/dL 70-110 L Lab Interpretation (test code = Abnormal 50750-1) [facility] GLUCOSE (AUTOMATED)2021-07-29 01:16:49 Test Item Value Reference Range Interpretation Comments POCT GLU (test code = 3506459754) 103 mg/dL 70-110 Lab Interpretation (test code = Normal 14459-0) [facility] GLUCOSE (AUTOMATED)2021-07-28 23:24:51 Test Item Value Reference Range Interpretation Comments POCT GLU (test code = 3382149252) 134 mg/dL 70-110 H Lab Interpretation (test code = Abnormal 10890-5) [facility] GLUCOSE (AUTOMATED)2021-07-28 18:51:28 Test Item Value Reference Range Interpretation Comments POCT GLU (test code = 4522302372) 276 mg/dL 70-110 H Lab Interpretation (test code = Abnormal 77076-2) [facility] GLUCOSE (AUTOMATED)2021-07-28 17:47:39 Test Item Value Reference Range Interpretation Comments POCT GLU (test code = 1669769637) 305 mg/dL 70-110 H Lab Interpretation (test code = Abnormal 71826-9) [facility] GLUCOSE (AUTOMATED)2021-07-28 16:53:19 Test Item Value Reference Range Interpretation Comments POCT GLU (test code = 2365229692) 276 mg/dL 70-110 H Lab Interpretation (test code = Abnormal 72369-4) [facility] GLUCOSE (AUTOMATED)2021-07-28 14:41:50 Test Item Value Reference Range Interpretation Comments POCT GLU (test code = 1646934296) 235 mg/dL 70-110 H Lab Interpretation (test code = Abnormal 61044-1) [facility]2021-12-30 13:09:27 Test Item Value Reference Range Interpretation Comments MAGNESIUM (test code = 3782070521) 2.0 mg/dL 1.7-2.4 Lab Interpretation (test code = Normal 59886-6) [facility] METABOLIC PANEL (NA, K, CL, CO2, GLUCOSE, BUN, CREATININE, CA)2021-07-28 12:34:26 Test Item Value Reference Range Interpretation Comments NA (test code = 135 mmol/L 135-145 1423639086) K (test code = 4.1 mmol/L 3.5-5.0 2093829952) CL (test code = 98 mmol/L 98-108 6275968654) CO2 TOTAL (test code = 32 mmol/L 23-31 H 8765317085) AGAP (test code = 2-16 1784752128) BUN (test code = 18 mg/dL 7-23 7663385400) GLUCOSE (test code = 229 mg/dL 70-110 H 5262379288) CREATININE (test code = 1.34 mg/dL 0.50-1.04 H 1151069676) CALCIUM (test code = 8.5 mg/dL 8.6-10.6 L 7890442537) eGFR (test code = mL/min/1.73m2 0974007638) CLARI (test code = CLARI) Association of [...] tests). Lab Interpretation Abnormal (test code = 36860-2) [facility] WITH [id number] 11:44:23 Test Item Value Reference Range Interpretation Comments WBC (test code = See_Comment [Automated 5643-2) message] The sy stem which generated this result transmitted reference range : 4.30 - 11.10 10*3/?L. The reference range was not used to interpret this result as normal/abnormal . RBC (test code = See_Comment L [Automated 679-8) message] The sy stem which generated this [...] RDW-SD (test code = 41.9 fL 39.0-49.9 07506-6) RDW-CV (test code = 13.6 % 12.0-15.5 788-0) PLT (test code = See_Comment H [Automated 777-3) message] The sy stem which generated this result transmitted reference range : 166 - 358 10*3/ ?L. The reference r rigo was not used to interpret this result as normal/abnormal . MPV (test code = 8.8 fL 9.5-12.9 L 77116-9) NRBC/100 WBC (test See_Comment [Automat ed code = 4565347219) message] The system which generated this result transmitted reference range : 0.0 - 10.0 /100 WBCs. The refer ence range was not u sed to interpret th is result as normal/abnormal . NRBC x10^3 (test code <0.01 See_Comment [Auto mated = 7987721467) message] The s ystem which generated this result transmitted reference range : 10*3/?L. The reference range was not used to interpret this result as normal/abnormal . GRAN MAT (NEUT) % 64.4 % (test code = 770-8) IMM GRAN % (test code 0.40 % = 0856894377) LYMPH % (test code = 26.5 % 736-9) MONO % (test code = 5.2 % 5905-5) EOS % (test code = 2.8 % 713-8) BASO % (test code = 0.7 % 706-2) GRAN MAT x10^3(ANC) 6.11 10*3/uL 1.88-7.09 (test code = 9440890442) IMM GRAN x10^3 (test 0.04 10*3/uL 0.00-0.06 code = 3021972961) LYMPH x10^3 (test code 2.52 10*3/uL 1.32-3.29 = 731-0) MONO x10^3 (test code 0.49 10*3/uL 0.33-0.92 = 742-7) EOS x10^3 (test code = 0.27 10*3/uL 0.03-0.39 711-2) BASO x10^3 (test code 0.07 10*3/uL 0.01-0.07 = 704-7) Lab Interpretation Abnormal (test code = 94684-6) [facility] GLUCOSE (AUTOMATED)2021-07-28 00:38:01 Test Item Value Reference Range Interpretation Comments POCT GLU (test code = 9451996968) 210 mg/dL 70-110 H Lab Interpretation (test code = Abnormal 36759-8) [facility] GLUCOSE (AUTOMATED)2021-07-27 18:01:28 Test Item Value Reference Range Interpretation Comments POCT GLU (test code = 7387747537) 188 mg/dL 70-110 H Lab Interpretation (test code = Abnormal 38132-3) [facility]-REACTIVE [id number] 17:37:08 Test Item Value Reference Range Interpretation Comments CRP (test code = 9074360798) 2.7 mg/dL <0.8 H Lab Interpretation (test code = Abnormal 32471-9) [facility] GLUCOSE (AUTOMATED)2021-07-27 14:36:47 Test Item Value Reference Range Interpretation Comments POCT GLU (test code = 4201315663) 151 mg/dL 70-110 H Lab Interpretation (test code = Abnormal 12101-2) [facility]TR[facility] [id number] 13:02:47 Test Item Value Reference Interpretation Comments Range TROPONIN I (test 0.414 ng/mL See_Comment H [Automated code = 2413296121) message] The system which generated this result [...] biotin. Lab Interpretation Abnormal (test code = 34990-7) [facility] Metabolic Panel (NA, K, CL, CO2, GLUCOSE, BUN, CREATININE, CA)2021-07-27 12:44:03 Test Item Value Reference Range Interpretation Comments NA (test code = 134 mmol/L 135-145 L 1326443143) K (test code = 4.2 mmol/L 3.5-5.0 2032314522) CL (test code = 101 mmol/L 98-108 2082733770) CO2 TOTAL (test code = 28 mmol/L 23-31 3362876912) AGAP (test code = 2-16 5777915162) BUN (test code = 21 mg/dL 7-23 6449356146) GLUCOSE (test code = 159 mg/dL 70-110 H 2411789766) CREATININE (test code = 1.02 mg/dL 0.50-1.04 5222972279) CALCIUM (test code = 8.5 mg/dL 8.6-10.6 L 5397855390) eGFR (test code = mL/min/1.73m2 5923842664) CLARI (test code = CLARI) Association of [...] tests). Lab Interpretation Abnormal (test code = 35897-2) [facility] CenterHEPATIC FUNCTION PANEL (87764) (ALB,T.PRO,BILI T,BU/BC,ALT,AST,ALK PHOS)2021-07-27 12:44:03 Test Item Value Reference Range Interpretation Comments TOTAL BILI (test code = 7455294478) 0.5 mg/dL 0.1-1.1 BILI UNCON (test code = 4757338402) 0.2 mg/dL 0.1-1.1 BILI CONJ (test code = 1892873183) 0.0 mg/dL 0.0-0.3 T PROTEIN (test code = 9256006819) 6.4 g/dL 6.3-8.2 ALBUMIN (test code = 4958520461) 2.8 g/dL 3.5-5.0 L ALK PHOS (test code = 5159976770) 891 U/L 34-122 H ALTv (test code = 1742-6) 29 U/L 5-35 AST(SGOT) (test code = 2869318653) 36 U/L 13-40 Lab Interpretation (test code = Abnormal 15585-4) [facility]CBC with Aalrtpvcybfv1112-51-29 11:55:37 Test Item Value Reference Range Interpretation Comments WBC (test code = See_Comment [Automated 8890-2) message] The sy stem which generated this result transmitted reference range : 4.30 - 11.10 10*3/?L. The reference range was not used to interpret this result as normal/abnormal . RBC (test code = See_Comment L [Automated 129-8) message] The sy stem which generated this [...] RDW-SD (test code = 42.1 fL 39.0-49.9 73109-7) RDW-CV (test code = 13.7 % 12.0-15.5 788-0) PLT (test code = See_Comment H [Automated 777-3) message] The sy stem which generated this result transmitted reference range : 166 - 358 10*3/ ?L. The reference r rigo was not used to interpret this result as normal/abnormal . MPV (test code = 8.9 fL 9.5-12.9 L 28755-3) NRBC/100 WBC (test See_Comment [Automat ed code = 0659905932) message] The system which generated this result transmitted reference range : 0.0 - 10.0 /100 WBCs. The refer ence range was not u sed to interpret th is result as normal/abnormal . NRBC x10^3 (test code <0.01 See_Comment [Auto mated = 8417033061) message] The s ystem which generated this result transmitted reference range : 10*3/?L. The reference range was not used to interpret this result as normal/abnormal . GRAN MAT (NEUT) % 63.0 % (test code = 770-8) IMM GRAN % (test code 0.20 % = 2475292941) LYMPH % (test code = 28.1 % 736-9) MONO % (test code = 6.3 % 5905-5) EOS % (test code = 1.9 % 713-8) BASO % (test code = 0.5 % 706-2) GRAN MAT x10^3(ANC) 5.17 10*3/uL 1.88-7.09 (test code = 2571652547) IMM GRAN x10^3 (test <0.03 0.00-0.06 code = 0792461759) LYMPH x10^3 (test code 2.31 10*3/uL 1.32-3.29 = 731-0) MONO x10^3 (test code 0.52 10*3/uL 0.33-0.92 = 742-7) EOS x10^3 (test code = 0.16 10*3/uL 0.03-0.39 711-2) BASO x10^3 (test code 0.04 10*3/uL 0.01-0.07 = 704-7) Lab Interpretation Abnormal (test code = 34112-9) [facility])2021-07-27 05:22:11 Test Item Value Reference Range Interpretation Comments POCT GLU (test code = 9294938374) 206 mg/dL 70-110 H Lab Interpretation (test code = Abnormal 59583-0) [facility]MAG[facility]IUM2021-12-29 03:27:22 Test Item Value Reference Range Interpretation Comments MAGNESIUM (test code = 2817655909) 1.7 mg/dL 1.7-2.4 Lab Interpretation (test code = Normal 97707-6) [facility] CenterFERRITIN [id number] 03:02:19 Test Item Value Reference Range Interpretation Comments FERRITIN (test code = 225.0 ng/mL 11.0-264.0 1833010337) CLARI (test code = CLARI) Biotin has been reported to cause a negative bias, interpret results relative to patient's use of biotin. Lab Interpretation (test Normal code = 91999-3) [facility] CenterPROCALCITONIN2021-12-29 02:53:39 Test Item Value Reference Range Interpretation Comments Procalcitonin (test 0.03 ng/mL <0.07 code = 2583959715) CLARI (test code = CLARI) INTERPRETATION OF [...] lung abscess/empyema. For further information please refer to:[email or web address] Lab Interpretation Normal (test code = 26899-6) [facility] CenterTROP[facility] Q9348-06-68 02:35:15 Test Item Value Reference Interpretation Comments Range TROPONIN I (test 0.424 ng/mL See_Comment H [Automated code = [id number]) message] The system which generated this result [...] biotin. Lab Interpretation Abnormal (test code = 45647-2) [facility] CenterLACT[facility] MPPYWTAKWLYBZ9225-10-25 02:19:52 Test Item Value Reference Range Interpretation Comments LDH (test code = 1310768949) 677 U/L 300-600 H Lab Interpretation (test code = Abnormal 64996-1) [facility]eraPTT2021-12-29 02:11:38 Test Item Value Reference Range Interpretation Comments APTT Patient (test code See_Comment H [Au tomated message] = 3173-2) The system Pic[employer] generated this result transmitted ref erence range: 26 - 36 Seconds. The reference range was not used to int erpret this result as normal/abnormal . Lab Interpretation (test Abnormal code = 52905-7) [facility]-[id number] 02:11:38 Test Item Value Reference Interpretation Comments Range D-DIMER (test code = See_Comment H [Autom ated 7579531350) message] The system which generated this result [...] diagnosis. Lab Interpretation Abnormal (test code = 30084-7) [facility] CenterProthrombin Time / [id number] 02:11:37 Test Item Value Reference Range Interpretation Comments PROTIME PATIENT (test See_Comment [Auto mated message] code = 5964-2) The system [employer] generated this result transmitted ref erence range: 10.1 - 1 2.6 Seconds. The re ference range was not u sed to interpret this result as normal/abnor mal. INR (test code = 6301-6) Nor mal INR <1.1; Warfarin Therap eutic range 2.0 to 3. 0 or 2.5 to 3.5, dep ending upon the indica tions. Lab Interpretation (test Normal code = 25248-9) [facility] CenterVITAMIN B12, [id number] 02:08:35 Test Item Value Reference Range Interpretation Comments VIT B12 (test code = 821 pg/mL 240-930 [id number]) CLARI (test code = CLARI) Biotin has been reported to cause a positive bias, interpret results relative to patient's use of biotin. Lab Interpretation (test Normal code = 81723-2) [facility] CenterETHANOL2021-12-29 01:20:19 Test Item Value Reference Range Interpretation Comments ALCOHOL (test code = <10 mg/dL 4628860105) CLARI (test code = Toxic Greater than or CLARI) equal to 80 mg/dL. NOTE: Whole blood values are approximately 10% to 15% lower than serum and plasma. [facility] CenterLIPID PANEL (40327)(TOTAL CHOLESTEROL, TRIGLYCERIDES, HDL)2021-07-27 01:17:48 Test Item Value Reference Range Interpretation Comments CHOL (test code = 202 mg/dL 120-200 H 6628951678) HDL (test code = 63 mg/dL >50 1117499018) HDLC RATIO (test code = See_Comment [Au tomated message] 2683735349) The system [employer] generated this result transmit lurdes reference range : <=4.5. The refe rence range was not u sed to interpret th is result as normal/abnormal . TRIG (test code = 132 mg/dL 30-170 7667383203) LDL CHOL (test code = 113 mg/dL See_Comment [Auto mated message] 80615-8) The system [employer] generated this result transmit lurdes reference range : <=160. The refe rence range was not u sed to interpret th is result as normal/abnormal . VLDL (test code = 26 mg/dL 5-60 7466097980) Lab Interpretation (test Abnormal code = 69647-2) [facility] CenterGLYCOSYLATED HEMOGLOBIN (A1C)2021-07-26 21:04:12 Test Item Value Reference Range Interpretation Comments HGB A1C (test code = 13.3 % 4.0-5.7 H 4548-4) CLARI (test code = CLARI) Reference RangesNormal: <5.7%Prediabetes: 5.7 - 6.4%Diabetes: > 6.5% Lab Interpretation (test Abnormal code = 93229-1) [facility] CenterFREE [id number] 20:26:42 Test Item Value Reference Range Interpretation Comments FREE T3 (test code = 5357793760) 2.76 pg/mL 2.77-5.27 L Lab Interpretation (test code = Abnormal 82745-4) [facility] CenterTHYROID STIMULATING [id number] 19:56:38 Test Item Value Reference Range Interpretation Comments TSH (test code = See_Comment H [Automated message] 7975756177) The system [employer] generated this result transmitted ref erence range: 0.45 - 4 .70 mIU/L. The refe rence range was not u sed to interpret this result as normal/abnor mal. Lab Interpretation (test Abnormal code = 55066-1) [facility] CenterFREE [id number] 19:43:13 Test Item Value Reference Range Interpretation Comments FREE T4 (test code = See_Comment [Autom ated message] 5051066692) The system [employer] generated this result transmitted ref erence range: 0.78 - 2 .20 ng/dL:. The ref erence range was not u sed to interpret this result as normal/abnor mal. Lab Interpretation (test Normal code = 57368-6) [facility] CenterTROPONIN [id number] 19:38:10 Test Item Value Reference Interpretation Comments Range TROPONIN I (test 0.518 ng/mL See_Comment H [Automated code = 8381834516) message] The system which generated this result [...] biotin. Lab Interpretation Abnormal (test code = 41644-9) [facility] CenterN-TERMINAL [id number] 19:38:10 Test Item Value Reference Range Interpretation Comments NT-proBNP (test code 2180 pg/mL See_Comment H [Autom ated = 9795169708) message] The system which generated this result transmitted reference range : <=125. The reference range was not used to interpret this result as normal/abnormal . CLARI (test code = CLARI) Biotin has been reported to cause a negative bias, interpret results relative to patient's use of biotin. Lab Interpretation Abnormal (test code = 99700-7) [facility] CenterCOMP. METABOLIC PANEL (67417)2021-07-26 19:27:30 Test Item Value Reference Range Interpretation Comments NA (test code = 133 mmol/L 135-145 L 4910145616) K (test code = 5.1 mmol/L 3.5-5.0 H 5521464536) CL (test code = 99 mmol/L 98-108 0681041052) CO2 TOTAL (test code = 28 mmol/L 23-31 1329355014) AGAP (test code = 2-16 4194811991) BUN (test code = 20 mg/dL 7-23 1336496927) GLUCOSE (test code = 169 mg/dL 70-110 H 4398256301) CREATININE (test code = 0.99 mg/dL 0.50-1.04 5223730962) TOTAL BILI (test code = 0.5 mg/dL 0.1-1.7 0850336716) CALCIUM (test code = 8.8 mg/dL 8.6-10.6 9804569987) T PROTEIN (test code = 6.6 g/dL 6.3-8.2 5189546237) ALBUMIN (test code = 3.1 g/dL 3.5-5.0 L 7042765987) ALK PHOS (test code = 1212 U/L 34-122 H 6414928973) ALTv (test code = 39 U/L 5-35 H 1742-6) AST(SGOT) (test code = 42 U/L 13-40 H 5215865603) eGFR (test code = mL/min/1.73m2 1070144017) CLARI (test code = CLARI) Association of [...] tests). Lab Interpretation Abnormal (test code = 01541-7) [facility] CenterLIPASE2021-12-28 19:27:30 Test Item Value Reference Range Interpretation Comments LIPASE (test code = 2574703402) 135 U/L 0-220 Lab Interpretation (test code = Normal 49265-3) [facility] WITH [id number] 19:18:50 Test Item Value Reference Range Interpretation [...] RDW-SD (test code = 41.1 fL 39.0-49.9 56658-6) RDW-CV (test code = 13.6 % 12.0-15.5 788-0) PLT (test code = See_Comment H [Automated 777-3) message] The sy stem which generated this result transmitted reference range : 166 - 358 10*3/ ?L. The reference r rigo was not used to interpret this result as normal/abnormal . MPV (test code = 8.9 fL 9.5-12.9 L 92480-4) NRBC/100 WBC (test See_Comment [Automat ed code = 6188860065) message] The system which generated this result transmitted reference range : 0.0 - 10.0 /100 WBCs. The refer ence range was not u sed to interpret th is result as normal/abnormal . NRBC x10^3 (test code <0.01 See_Comment [Auto mated = 5397694004) message] The s ystem which generated this result transmitted reference range : 10*3/?L. The reference range was not used to interpret this result as normal/abnormal . GRAN MAT (NEUT) % 68.5 % (test code = 770-8) IMM GRAN % (test code 0.40 % = 6664271832) LYMPH % (test code = 23.3 % 736-9) MONO % (test code = 5.7 % 5905-5) EOS % (test code = 1.4 % 713-8) BASO % (test code = 0.7 % 706-2) GRAN MAT x10^3(ANC) 5.69 10*3/uL 1.88-7.09 (test code = 2244729895) IMM GRAN x10^3 (test 0.03 10*3/uL 0.00-0.06 code = 4098097525) LYMPH x10^3 (test code 1.93 10*3/uL 1.32-3.29 = 731-0) MONO x10^3 (test code 0.47 10*3/uL 0.33-0.92 = 742-7) EOS x10^3 (test code = 0.12 10*3/uL 0.03-0.39 711-2) BASO x10^3 (test code 0.06 10*3/uL 0.01-0.07 = 704-7) Lab Interpretation Abnormal (test code = 43491-5) [facility]
--- NOTE | 2022-12-26 12:43 | RAD REPORT ---
EXAM DESCRIPTION: RADChest Single View12/26/2022 12:32 pm CLINICAL HISTORY: DYSPNEA COMPARISON: Chest Single View dated 03/19/2022; Chest Single View dated 07/12/2021; CHEST PA AND LAT 2 VIEW dated 07/06/2013; CHEST SINGLE VIEW dated 01/20/2012 TECHNIQUE: Portable AP view of the chest. FINDINGS: The lungs are clear. No pneumothorax or effusion. The cardiomediastinal contours are unre markable. IMPRESSION: No acute cardiopulmonary process.
--- NOTE | 2022-12-26 14:27 | ER ---
Nurse's Notes [facility] Name: Jailyn Terry Age: 57 yrs Sex: Female : 1965 Arrival Date: 12/26/2022 Time: 11:54 Bed IW2 Private MD: Diagnosis: Acute stress reaction Presentation: 12/26 12:11 Chief complaint: EMS states: Had anxiety attach this morning, reports high home BP hb while anxious, feeling better upon arrival. BP 180/92, HR 84, SpO2 98% on RA, BGL 196. Coronavirus screen: At this time, the client does not indicate any symptoms associated with coronavirus-19. Ebola Screen: No symptoms or risks identified at this time. Initial Sepsis Screen: Does the patient meet any 2 criteria? No. Patient's initial sepsis screen is negative. Does the patient have a suspected source of infection? No. Patient's initial sepsis screen is negative. Risk Assessment: Do you want to hurt yourself or someone else? Patient reports no desire to harm self or others. Onset of symptoms was December 26, 2022. 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 - Social history:: Smoking status: Patient denies any tobacco usage or history of. Vital Signs: 12:11 BP 161 / 82; Pulse 84; Resp 16; Temp 98.3; Pulse Ox 100% on R/A; Weight 72.57 kg; hb Height 5 ft. 0 in. ; Pain 0/10; 12:11 Body Mass Index 31.25 (72.57 kg, 152.4 cm) hb 12:11 Pain Scale: Adult hb ED Course: 11:58 Patient arrived in ED. mr 12:12 Candy Alegria FNP-C is [facility]. kb 12:12 Benigno Altamirano MD is Attending Physician. kb 12:13 Triage completed. hb 12:14 Arm band placed on. hb 12:31 Chest Single View XRAY In Process Unspecified. EDMS Administered Medications: No medications were administered Outcome: 14:27 Discharge ordered by . kb 14:29 Patient left the ED. hb Signatures: Dispatcher [employer] EDMS Candy Alegria, SILVANO HERNÁNDEZ-Edilma Moore mr Gale Mcmahon, RN RN hb
--- NOTE | 2022-12-26 14:27 | EDPHYS ---
Physician Documentation [facility] Name: Jailyn Terry Age: 57 yrs Sex: Female : 1965 Arrival Date: 12/26/2022 Time: 11:54 Bed IW2 Private MD: ED Physician Benigno Altamirano HPI: 12/26 16:51 This 57 yrs old Female presents to ER via EMS with complaints of Anxiety. kb 16:51 The patient presents to the emergency department with anxiety, "something going on with kb grandson". Onset: The symptoms/episode began/occurred just prior to arrival. Associated signs and symptoms: Pertinent positives; anxiety, shortness of breath. Severity of symptoms: At their worst the symptoms were moderate in the emergency department the symptoms have resolved. The patient has not experienced similar symptoms in the past. The patient has not recently seen a physician. Pt reports there is something going on with her grandson that is worrying her, she started thinking about it and got very anxious. States she was having shortness of breath as well. Denies chest pain. STates symptoms have resolved. "I have calmed down now.". 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 - Social history:: Smoking status: Patient denies any tobacco usage or history of. ROS: 16:49 Constitutional: Negative for fever, chills, and weight loss. kb 16:49 Respiratory: Positive for shortness of breath, Negative for cough, dyspnea on exertion, hemoptysis, orthopnea, pleurisy, sputum production, wheezing. 16:49 Psych: Positive for anxiety. 16:49 All other systems are negative. Exam: 16:50 Constitutional: This is a well developed, well nourished patient who is awake, alert, kb and in no acute distress. Head/Face: Normocephalic, atraumatic. ENT: Moist Mucous membranes Cardiovascular: Regular rate and rhythm with a normal S1 and S2. No gallops, murmurs, or rubs. No pulse deficits. Respiratory: Respirations even and unlabored. No increased work of breathing. Talking in full sentences Abdomen/GI: Soft, non-tender. No distention Skin: Warm, dry with normal turgor. Normal color. MS/ Extremity: Pulses equal, no cyanosis. Neurovascular intact. Full, normal range of motion. Neuro: Awake and alert, GCS 15, oriented to person, place, time, and situation. Moves all extremities. Normal gait. Psych: Awake, alert, with orientation to person, place and time. Behavior, mood, and affect are within normal limits. Vital Signs: 12:11 BP 161 / 82; Pulse 84; Resp 16; Temp 98.3; Pulse Ox 100% on R/A; Weight 72.57 kg; hb Height 5 ft. 0 in. ; Pain 0/10; 12:11 Body Mass Index 31.25 (72.57 kg, 152.4 cm) hb 12:11 Pain Scale: Adult hb MDM: 12:18 Patient medically screened. kb 16:51 Data reviewed: vital signs, nurses notes. kb 16:52 Differential diagnosis: acute psychotic break, anxiety. Historians other than the kb Patient: EMS: [facility]. Counseling: I had a detailed discussion with the patient and/or guardian regarding: the historical points, exam findings, and any diagnostic results supporting the discharge/admit diagnosis, radiology results, the need for outpatient follow up, a family practitioner, to return to the emergency department if symptoms worsen or persist or if there are any questions or concerns that arise at home. 12/26 12:19 Order name: Chest Single View XRAY; Complete Time: 12:44 kb Administered Medications: No medications were administered Disposition Summary: 12/26/22 14:27 Discharge Ordered Location: Home kb Condition: Stable kb Diagnosis - Acute stress reaction kb Followup: kb - With: Emergency Department - When: As needed - Reason: Worsening of condition Followup: kb - With: Private Physician - When: 2 - 3 days - Reason: Recheck today's complaints, Continuance of care, Re-evaluation by your physician Discharge Instructions: - Discharge Summary Sheet kb - Panic Attack, [id number] kb Forms: - Medication Reconciliation Form kb - Thank You Letter kb - Antibiotic Education kb - Prescription Opioid Use kb Signatures: Dispatcher [employer] EDCandy Rowland, EXTERMINATOR TERMITE-C BETTY-Gale Álvarez, RN RN hb
[2022-12-26 14:32] VITALS: BP 161/82; TEMP 98.3; O2SAT 100
== END 2022-12-26 14:29 | disposition home or self-care (01) ==
LOC: ER 11:54
DX: F43.0 Acute stress reaction (principal); I10 Essential (primary) hypertension; I50.9 Heart failure, unspecified; E11.9 Type 2 diabetes mellitus without complications; Z95.818 Presence of other cardiac implants and grafts; Z88.5 Allergy status to narcotic agent
CPT/HCPCS: 71045; 99283

== ENCOUNTER 2024-11-20 11:57 | Emergency (ER) | payer OTHER, SELFPAY ==
--- OUTSIDE RECORDS SUMMARY | 2024-11-20 12:13 | XMS REPORT | Continuity of Care Document ---
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 Role Phone Katherine Schmitt Primary Care Physician [phone] SAVANAH RUIZ Attending Clinician UnavailKENY Carpenter Attending Clinician Unavailable Keny Pierce MD Attending Clinician [phone] Katherine Schmitt Attending Clinician + [phone] CARISA LIZARRAGA Attending Clinician Unavailable CORINA BERUMEN Attending Clinician UnavailCarisa Steven Attending Clinician [phone] Carisa Butler Attending Clinician [phone] Keny Pierce MD Attending Clinician [phone] Doctor Unassigned, [place] Attending Clinician Eliane Galvan Attending Clinician UnavailPARISH Mehta Attending Clinician Svaanah Fraser Attending Clinician [phone] Alok PADRON, [place] Attending Clinician [phone] Russell Padron MD Attending Clinician [phone] Chase Lance MD Attending Clinician [phone] Kolby Loomis MD Attending Clinician [phone] Manish PAC, K Kiara Attending Clinician [phone] 2, [facility] Attending Clinician Unavailable Willam Attending Clinician Unavailable Jayde [place] LVN Attending Clinician [phone] ROBERT ROSADO Attending Clinician Unavailable Joaquín Samuels MD Attending Clinician [phone] Jagruti Booker DO Attending Clinician [phone] Ashlee PADRON, Robert Attending Clinician [phone] Lab, Ang - Db Attending Clinician Unavailable JASON CANTU Attending Clinician Unavailable Jason Cantu MD Attending Clinician [phone] MARGOT MC Attending Clinician Unavailjose Mc MD, Margot Maurer Attending Clinician [phone] Attending Clinician Unava salina HERNÁNDEZ, Leslie F Attending Clinician [phone] MD Attending Clinician [phone] ABIGAIL SOUZA Attending Clinician Unavailable Abigail Souza MD Attending Clinician [phone] Alma Rosa Dorsey DO Attending Clinician [phone] Nivia Espinosa RN Attending Clinician + [phone] SAVANAH RUIZ Admitting Clinician UnavailPARISH Lopez Admitting Clinician Salabdor Benitez MD, [place] Admitting Clinician [phone] Savanah Ruiz Admitting Clinician +[phone] Willam Admitting Clinician Unavailable LE, JAGRUTI Admitting Clinician Unavailable Ade DO, Jagruti Admitting Clinician JASON CANTU Admitting Clinician Unavailable SONIYA L[address] Admitting Clinician Soniya Aparicio MD Admitting Clinician [phone] CARISA LIZARRAGA Admitting Clinician Unavailable Payers Payer Name Policy Type Policy Number Effective Date Expirati on Date Source [place] [id number] 2022 00:00:00 2023 00:00:00 [facility] [id number] 2018 00:00:00 [facility] [id number] MEDICAID 365 VENDOR [id number] 2021 00:00:00 2021 00:00:00 Problems Condition Name Condition Details Condition Category Status Onset Date Resolution Date Last Treatment Date Treating Clinician Comments Source Stenosis of right carotid artery Stenosis of right carotid artery Disease Active 9- 00:00: 00 [facility] Cholecysti tis Cholecysti tis Disease Active 20 00:00: 00 [facility] Nonrheumat ic aortic valve stenosis Nonrheumat ic aortic valve stenosis Disease Active 17 00:00: 00 [facility] Pulmonary hypertensi on Pulmonary hypertensi on Disease Active 817 00:00: 00 [facility] Coronary artery disease involving [place] coronary artery of [place] heart without angina pectoris Coronary artery disease involving [place] coronary artery of [place] heart without angina pectoris Disease Active 01-11 00:00: 00 [facility] Hyperglyce mira due to type 2 diabetes mellitus Hyperglyce mira Due to Type 2 Diabetes Mellitus Problem Active 12-19 00:00: 00 [facility] Atheroscle rosis of coronary artery without angina pectoris Atheroscle rosis of Coronary Artery without Angina Pectoris Problem Active 12-19 00:00: 00 [facility] Hypothyroi dism Hypothyroi dism Problem Active 12-19 00:00: 00 [facility] Mixed hyperlipid emia Mixed Hyperlipid emia Problem Active 12-19 00:00: 00 [facility] Cataract Cataract Problem Active 12-19 00:00: 00 [facility] Benign essential hypertensi on Benign Essential Hypertensi on Problem Active 12-19 00:00: 00 [facility] Congestive heart failure Congestive Heart Failure Problem Active 12-19 00:00: 00 [facility] Hyperlipid emia, unspecifie d hyperlipid emia type Hyperlipid emia, unspecifie d hyperlipid emia type Disease Active 12-11 00:00: 00 [facility] Chronic diastolic heart failure Chronic diastolic heart failure Disease Active 12-07 00:00: 00 [facility] Bilateral leg edema Bilateral leg edema Disease Active 12-02 00:00: 00 [facility] Dizziness Dizziness Disease Active 2020-07 00:00: 00 [facility] Diabetic retinal hemorrhage Diabetic retinal hemorrhage Disease Active 12-19 00:00: 00 [facility] Vitreous hemorrhage of right eye Vitreous hemorrhage of right eye Disease Active 12-16 00:00: 00 Overview: Formattin g of this note might be different from the original. Added automatic ally from request for surgery [id number] [facility] Obesity (BMI 30-39.9) Obesity (BMI 30-39.9) Disease Active 2017-07 00:00: 00 [facility] Need for Tdap vaccinatio n Need for Tdap vaccinatio n Disease Active 11-24 00:00: 00 [facility] Diabetes mellitus type 2, uncontroll ed, without complicati ons Diabetes mellitus type 2, uncontroll ed, without complicati ons Disease Active 11-24 00:00: 00 Overview: Formattin g of this note might be different from the original. 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 [facility] Acquired hypothyroi dism Acquired hypothyroi dism Disease Active 11-24 00:00: 00 [facility] History of tubal ligation History of tubal ligation Disease Active 11-24 00:00: 00 [facility] Morbid obesity Morbid obesity Disease Active 11-24 00:00: 00 [facility] Genital warts Genital warts Disease Active 11-24 00:00: 00 [facility] Encounter for routine gynecologi theron examinatio n Encounter for routine gynecologi theron examinatio n Disease Active 11-24 00:00: 00 Overview: Formattin g of this note might be different from the original. 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 [facility] Diabetes mellitus (disorder) Diabetes mellitus (disorder) [facility] Active 2019-03-28 02:03:10 Marissa Zambrano Hypertensi ve disorder, systemic arterial (disorder) Hypertensi ve disorder, systemic arterial (disorder) Active Problem 03/28/2019 [facility] Problem Active 2019-03-28 02:03:10 Marissa Zambrano Peripheral nerve disease (disorder) Peripheral nerve disease (disorder) Active [facility] Active 2019-03-28 02:03:10 Marissa Zambrano Allergies, Adverse Reactions, Alerts Allergy Name Allergy Type Status Severity Reaction(s) Onset Date Inactive Date Treating Clinician Comments Source PENICILL IN DRUG INGREDI Active Rash 2020-07 00:00: 00 [facility] Penicill in Propensi ty to adverse reaction s Active Rash 2020-07 00:00: 00 [facility] NO KNOWN ALLERGIE S Drug Class Active [facility] Social History Social Habit Start Date Stop Date Quantity Comments Source [facility] SDOH Alcohol Comment [facility] History of tobacco use Passive smoker [facility] History SDOH Social Connections Get Together [facility] History SDOH Social Connections Orthod[facility] History SDOH Social Connections Membership [facility] History SDOH Social Connections Meetings [facility] History SDOH Housing Places Lived [facility] History of Social function 2024-04-07 00:00:00 2024-04-07 00:00:00 [facility] Alcoholic beverage intake 2024-04-07 00:00:00 2024-04-07 00:00:00 Ex-drinker (finding) [facility] Alcohol intake 2023-08-21 00:00:00 2023-08-21 00:00:00 Ex-drinker (finding) [facility] Exposure to SARS-CoV-2 (event) 2022-12-01 00:00:00 2022-12-11 15:15:00 Not sure [facility] History SDOH Alcohol Frequency 2022-12-03 00:00:00 2022-12-03 00:00:00 1 [facility] History SDOH Financial 2022-12-03 00:00:00 2022-12-03 00:00:00 5 [facility] History SDOH Food Worry 2022-12-03 00:00:00 2022-12-03 00:00:00 1 [facility] History SDOH Food Scarcity 2022-12-03 00:00:00 2022-12-03 00:00:00 1 [facility] History SDOH Transport Med 2022-12-03 00:00:00 2022-12-03 00:00:00 2 [facility] History SDOH Transport Non-Med 2022-12-03 00:00:00 2022-12-03 00:00:00 2 [facility] History SDOH Social Connections Phone 2022-12-03 00:00:00 2022-12-03 00:00:00 5 [facility] History SDOH Social Connections Living 2022-12-03 00:00:00 2022-12-03 00:00:00 7 [facility] History SDOH Housing Unable to Pay 2022-12-03 00:00:00 2022-12-03 00:00:00 2 [facility] History SDOH Housing Homeless Last Year 2022-12-03 00:00:00 2022-12-03 00:00:00 2 [facility] Tobacco use and exposure 2022-12-02 00:00:00 2022-12-02 00:00:00 Smokeless tobacco non-user [facility] History SDOH Alcohol Std Drinks 2021-08-22 00:00:00 2021-08-22 00:00:00 1 [facility] History SDOH Alcohol Binge 2021-08-22 00:00:00 2021-08-22 00:00:00 1 [facility] History SDOH Stress 2021-08-22 00:00:00 2021-08-22 00:00:00 5 [facility] Social History 2019-03-25 20:40:29 2019-03-25 20:40:29 [facility] Sex assigned at 1965 00:00:00 1965 00:00:00 [facility] Smoking Status Start Date Stop Date Source Never smoked tobacco [facility] Medications Ordered Medication Name Filled Medication Name Start Date Stop Date Current Medication? Ordering Clinician Indication Dosage Frequency Signature (SIG) Comments Components Source Prolensa 0.07 % eye drops 10-09 00:00: 00 Yes 1% Serafin Gaytan ezetimibe 10 mg tablet 09-03 00:00: 00 Yes 10mg Take 1 tablet by mouth in the morning. Please do labs in May [facility] lovastatin 40 mg tablet 08-25 10:46: 50 Yes 40mg Take 1 tablet by mouth at bedtime. [facility] empaglifloz in (JARDIANCE) 10 mg tablet 08-25 10:44: 55 Yes 10mg Take 1 tablet by mouth in the morning. [facility] insulin glarginejanineanlog (LANTUS U-100 INSULIN SC) 08-25 10:44: 12 Yes 10U inject 10 Units under the skin in the morning and 10 Units in the evening. [facility] insulin lispro, human, (ADMELOG U-100 INSULIN LISPRO) 100 unit/mL injection 08-25 10:43: 33 Yes 3U inject 3 Units under the skin in the morning and 3 Units at noon and 3 Units in the evening. inject with meals. [facility] lisinopriL 40 mg tablet 08-25 10:40: 09 Yes 40mg Take 1 tablet by mouth in the morning. [facility] Lovaza 1 gram capsule 08-25 00:00: 00 Yes gram Serafin Gaytan Lovaza 1 gram capsule 08-14 00:00: 00 Yes gram Serafin Gaytan carvedilol 25 mg tablet 08-07 00:00: 00 Yes mg Serafin Gaytan lisinopril 40 mg tablet 08-07 00:00: 00 Yes mg Serafin Gaytan levothyroxi ne 50 mcg tablet 08-07 00:00: 00 Yes mcg Serafin Gaytan diclofenac 3 % topical gel 08-07 00:00: 00 Yes 2% Serafin Gaytan Jardiance 25 mg tablet 08-07 00:00: 00 Yes 1mg Serafin Gaytan Tylenol Extra Strength 500 mg tablet 08-07 00:00: 00 Yes 1mg Serafin Gaytan Lantus Solostar U-100 Insulin 100 unit/mL (3 mL) subcutaneou s pen 04-15 00:00: 00 Yes (3 mL) Serafin Gaytan Humulin 70/30 U-100 Insulin KwikPen 100 unit/mL subcutaneou s 04-15 00:00: 00 Yes unit/mL (70-30) Serafin Gaytan levothyroxi ne 50 mcg tablet 04-12 00:00: 00 Yes mcg Serafin aGytan furosemide 40 mg tablet 04-11 00:00: 00 Yes [id number] Take 1 tablet by mouth as needed for leg swelling or shortness of breath [facility] carvedilol 25 mg tablet 04-11 00:00: 00 Yes mg Serafin Gaytan lisinopril 40 mg tablet 04-11 00:00: 00 Yes mg Serafin Gaytan ezetimibe 10 mg tablet 04-11 00:00: 00 Yes mg Serafin Gaytan Jardiance 10 mg tablet 04-11 00:00: 00 Yes mg Serafin Gaytan ezetimibe 10 mg tablet 04-11 00:00: 00 09-03 00:00 :00 No 10mg Take 1 tablet by mouth in the morning. Please do labs in May [facility] Humulin 70/30 U-100 Insulin KwikPen 100 unit/mL subcutaneou s 03-29 00:00: 00 Yes unit/mL (70-30) Serafin Gaytan Novolin 70-30 FlexPen U-100 Insulin 100 unit/mL (70-30) subcutaneou s 03-24 00:00: 00 Yes unit/mL (70-30) Serafin Gaytan chlorthalid one 50 mg tablet 03-24 00:00: 00 Yes 1mg Serafin Gaytan Lantus Solostar U-100 Insulin 100 unit/mL (3 mL) subcutaneou s pen 03-11 00:00: 00 Yes (3 mL) Serafin Gaytan chlorthalid one 25 mg tablet 03-11 00:00: 00 Yes 1mg Serafin Gaytan lisinopril 40 mg tablet 03-11 00:00: 00 Yes 1mg Serafin Gaytan fenofibrate 54 mg tablet 03-11 00:00: 00 Yes 1mg Serafin Gaytan lovastatin 40 mg tablet 03-11 00:00: 00 Yes 1mg Serafin Gaytan Novolin 70-30 FlexPen U-100 Insulin 100 unit/mL (70-30) subcutaneou s 01-15 00:00: 00 Yes unit/mL (70-30) Serafin Gaytan furosemide 40 mg tablet 01-15 00:00: 00 Yes 1mg Serafin Gaytan terbinafine HCl 250 mg tablet 01-15 00:00: 00 Yes 1mg Serafin Gaytan lisinopril 40 mg tablet 01-15 00:00: 00 Yes 1mg Serafin Gaytan metformin 500 mg tablet 01-15 00:00: 00 Yes 1mg Serafin Gaytan carvedilol 25 mg tablet 01-15 00:00: 00 Yes 1mg Serafin Gaytan metoclopram quentin 5 mg tablet 01-15 00:00: 00 Yes 1mg Serafin Gaytan dicyclomine 20 mg tablet 01-15 00:00: 00 Yes 1mg Serafin Gaytan levothyroxi ne 50 mcg tablet 01-15 00:00: 00 Yes 1mcg Serafin Gaytan lisinopriL 20 mg tablet 11-18 00:00: 00 08-25 00:00 :00 No [id number] 20mg Take 1 tablet by mouth in the morning. MUST BE SEEN FOR FURTHER REFILLS [facility] furosemide 40 mg tablet 11-18 00:00: 00 04-11 00:00 :00 No [id number] 40mg Take 1 tablet by mouth in the morning. MUST BE SEEN FOR FURTHER REFILLS [facility] lisinopril 40 mg tablet 10-22 00:00: 00 Yes 1mg Serafin Gaytan Prolensa 0.07 % eye drops 10-04 00:00: 00 Yes 1% Serafin Gaytan Novolin 70-30 FlexPen U-100 Insulin 100 unit/mL (70-30) subcutaneou s 10-04 00:00: 00 Yes unit/mL (70-30) Serafin Gaytan furosemide 40 mg tablet 10-04 00:00: 00 Yes 1mg Serafin Gaytan lisinopril 20 mg tablet 10-04 00:00: 00 Yes 1mg Serafin Gaytan metformin 500 mg tablet 10-04 00:00: 00 Yes 1mg Serafin Gaytan carvedilol 25 mg tablet 10-04 00:00: 00 Yes 1mg Serafin Gaytan metoclopram quentin 5 mg tablet 10-04 00:00: 00 Yes 1mg Serafin Gaytan levothyroxi ne 50 mcg tablet 10-04 00:00: 00 Yes 1mcg Serafin Gaytan furosemide 40 mg tablet 08-20 00:00: 00 Yes [id number] 40mg Take 1 tablet by mouth in the morning. MUST BE SEEN FOR FURTHER REFILLS [facility] TAKE 1 TABLET BY MOUTH IN THE MORNING ,MUST BE SEEN FOR FURTHER REFILLS 08-20 00:00: 00 Yes Serafin Gaytan lisinopriL 20 mg tablet 2022-07 00:00: 00 Yes [id number] 20mg Take 1 tablet by mouth in the morning. [facility] TAKE 1 TABLET BY MOUTH IN THE MORNING 2022-07 00:00: 00 Yes Serafin Gaytan lisinopriL 20 mg tablet 2022-07 00:00: 00 Yes [id number] 20mg Take 1 tablet by mouth in the morning. [facility] TAKE 1 TABLET BY MOUTH IN THE MORNING 2022-07 00:00: 00 Yes eSrafin Gaytan TAKE 1 TABLET DAILY. 2022-07 00:00: 00 12-03 00:00 :00 No 10 Serafin Gaytan TAKE 1 TABLET EVERY MORNING. 2022-07 00:00: 00 12-03 00:00 :00 No 50 Serafin Gaytan TAKE 1 TABLET TWICE DAILY WITH FOOD. 2022-07 00:00: 00 12-03 00:00 :00 No 500 Serafin Gaytan TAKE 1 TABLET 3 TIMES DAILY. 2022-07 00:00: 00 12-03 00:00 :00 No 5 Serafin Gaytan amLODIPine 10 mg tablet 03-20 11:36: 21 03-20 00:00 :00 No 10mg Take 10 mg by mouth daily. [facility] Sliding Scale Insulin - Lispro (HumaLOG) 03-20 09:00: 00 Yes Subcutaneo us, Q4H, First dose (after last modificati on) on Sun03/20/23 at 0400, Until Discontinu ed, Routine [facility] acetaminoph en 325 mg tablet 03-20 00:00: 00 03-20 04:59 :00 No [id number] 650mg Take 2 tablets by mouth every 6 (six) hours as needed for Pain (scale 1-3) or Pain (scale 4-6). [facility] ondansetron (ZOFRAN (PF)) injection 4 mg 03-19 16:45: 00 03-19 15:54 :00 No 4mg 4 mg, Slow IV Push, ONCE, On Sun03/19/23 at 1145, For 1 dose, PACU
Do ses of ondansetro n 16 mg and above need to be administer ed via IV piggyback. For Dose >=24mg ECG monitoring is advisable.
[facility] lactated ringers IV infusion 1,000 mL 03-19 15:30: 00 03-20 12:04 :30 No 1000mL at 75 mL/hr, 1,000 mL, IV Infusion, CONTINUOUS , Starting on Sun03/19/23 at 1030, Until Sun03/20/23 at 0704, Routine, PACU [facility] HYDROmorphO ne (DILAUDID) injection 0.2 mg 03-19 15:21: 30 03-19 17:05 :58 No .2mg 0.2 mg, Slow IV Push, Q5MIN PRN, 10 doses, Starting on Sun03/19/23 at 1021, Until Sun03/19/23 at 1205, Routine, Pain (scale 7-10), PACU
Us e approved by (Faculty): PACU USE -ANESTHESI A SERVICE-HY DROMORPHON E INJECTIONS [facility] iohexoL (OMNIPAQUE 300-50 mL)) injection 03-19 15:10: 00 03-19 15:33 :58 No PRN, Starting on Sun03/19/23 at 1010, Until Sun03/19/23 at 1033, Routine, Intra-op [facility] bupivacaine (preserv free) (SENSORCAIN E MPF) 0.25 % (2.5 mg/mL) injection 03-19 15:10: 00 03-19 15:33 :58 No PRN, Starting on Sun03/19/23 at 1010, Until Sun03/19/23 at 1033, Routine, Intra-op [facility] ondansetron (ZOFRAN (PF)) injection 03-19 15:06: 00 03-19 15:36 :21 No Slow IV Push, ONCE INTRA PROCEDURE, Starting on Sun03/19/23 at 1006, Until Sun03/19/23 at 1036, Routine, Intra-op [facility] sugammadex (BRIDION) injection 03-19 15:06: 00 03-19 15:36 :21 No IV Push, ONCE INTRA PROCEDURE, Starting on Sun03/19/23 at 1006, Until Sun03/19/23 at 1036, Routine, Intra-op [facility] piperacilli n-tazobacta m (ZOSYN) injection 03-19 14:30: 00 03-19 15:36 :21 No IV Piggyback, ONCE INTRA PROCEDURE, Starting on Sun03/19/23 at 0930, Until Sun03/19/23 at 1036, REGAN, Intra-op [facility] furosemide (LASIX) tablet 40 mg 03-19 14:00: 00 Yes 40mg 40 mg, Oral, DAILY, First dose on Sun03/19/23 at 0900, Until Discontinu ed, Routine [facility] dexamethaso ne (DECADRON PHOSPHATE) injection 03-19 13:55: 00 03-19 15:36 :21 No IV Push, ONCE INTRA PROCEDURE, Starting on Sun03/19/23 at 0855, Until Sun03/19/23 at 1036, Routine, Intra-op [facility] rocuronium (ZEMURON) injection 03-19 13:36: 00 03-19 15:36 :21 No IV Push, ONCE INTRA PROCEDURE, Starting on Sun03/19/23 at 0836, Until Sun03/19/23 at 1036, Routine, Intra-op [facility] propofoL IV infusion 03-19 13:36: 00 03-19 15:36 :21 No Intravenou s, ONCE INTRA PROCEDURE, Starting on Sun03/19/23 at 0836, Until Sun03/19/23 at 1036, Routine, Intra-op [facility] FENTanyl PF (SUBLIMAZE (PF)) injection 03-19 13:36: 00 03-19 15:36 :21 No Intravenou s, ONCE INTRA PROCEDURE, Starting on Sun03/19/23 at 0836, Until Sun03/19/23 at 1036, Routine, Intra-op [facility] lidocaine 1% (XYLOCAINE) 100 mg/10 mL (1 %) injection 03-19 13:35: 00 03-19 15:36 :21 No Intravenou s, ONCE INTRA PROCEDURE, Starting on Sun03/19/23 at 0835, Until Sun03/19/23 at 1036, Routine, Intra-op [facility] lactated ringers IV infusion 03-19 13:14: 00 03-19 15:36 :21 No IV Infusion, CONTINUOUS PRN, Starting on Sun03/19/23 at 0814, Until Sun03/19/23 at 1036, Routine, Intra-op [facility] midazolam (VERSED) injection 03-19 13:14: 00 03-19 15:36 :21 No IV Push, ONCE INTRA PROCEDURE, Starting on Sun03/19/23 at 0814, Until Sun03/19/23 at 1036, Routine, Intra-op [facility] carvediloL (COREG) tablet 25 mg 03-19 13:00: 00 Yes 25mg 25 mg, Oral, BID MEALS, First dose on Sun03/19/23 at 0800, Until Discontinu ed, Routine [facility] levothyroxi ne (SYNTHROID) tablet 50 mcg 03-19 11:00: 00 Yes 50ug 50 mcg, Oral, QAM-0600, First dose on Sun03/19/23 at 0600, Until Discontinu ed, Routine [facility] morpHINE (2 mg/mL) injection 2 mg 03-18 22:31: 39 03-20 13:53 :54 No 2mg 2 mg, Slow IV Push, Q4HPRN, Starting on Sun03/18/23 at 1731, Until Sun03/20/23 at 0853, Routine, Pain (scale 7-10) [facility] enoxaparin (LOVENOX) injection 40 mg 03-18 22:00: 00 Yes 40mg 40 mg, Subcutaneo us, Q24H, First dose on Sun03/18/23 at 1700, Until Discontinu ed, Routine [facility] Sliding Scale Insulin - Lispro (HumaLOG) 03-18 17:00: 00 03-20 06:48 :23 No Subcutaneo us, Q4H, First dose on Sun03/18/23 at 1200, Until Discontinu ed, Routine [facility] lactated ringers IV infusion 1,000 mL 03-18 14:00: 00 Yes 1000mL at 100 mL/hr, 1,000 mL, IV Infusion, CONTINUOUS , Starting on Sun03/18/23 at 0900, Until Discontinu ed, Routine [facility] pantoprazol e (PROTONIX) EC tablet 40 mg 03-18 14:00: 00 Yes 40mg 40 mg, Oral, DAILY, First dose on Sun03/18/23 at 0900, Until Discontinu ed, Routine [facility] dextrose 50 % in water (D50W) injection 25 mL 03-18 13:46: 02 Yes 25mL 25 mL, Slow IV Push, PRN, Starting on Sun03/18/23 at 0846, Until Discontinu ed, REGAN, Blood Glucose < or = 70 mg/dL and patient is NPO, unable to swallow or has mental status changes. [facility] glucagon (GLUCAGEN DIAGNOSTIC KIT) injection 1 mg 03-18 13:46: 02 03-20 22:08 :11 No 1mg 1 mg, Intramuscu lar, PRN, Starting on Sun03/18/23 at 0846, Until Sun03/20/23 at 1708, REGAN, Blood Glucose < or = 70 mg/dL and patient is NPO, unable to swallow or has mental changes. [facility] ondansetron (ZOFRAN (PF)) injection 4 mg 03-18 13:45: 11 Yes 4mg 4 mg, Slow IV Push, Administer over 15 Minutes, Q8HPRN, Starting on Sun03/18/23 at 0845, Until Discontinu ed, Routine, Nausea and Vomiting (N/V) [facility] acetaminoph en (TYLENOL) tablet 650 mg 03-18 13:44: 54 Yes 650mg 650 mg, Oral, Q6HPRN, Starting on Sun03/18/23 at 0844, Until Discontinu ed, Routine, Pain (scale 1-3) [facility] NaCl 0.9% (NS) IV infusion 1,000 mL 03-18 10:30: 00 Yes 1000mL at 150 mL/hr, IV Infusion, CONTINUOUS , Starting on Sun03/18/23 at 0530, Until Discontinu ed, Routine [facility] famotidine (PEPCID (PF)) injection 20 mg 03-18 10:30: 00 03-18 10:00 :00 No 20mg 20 mg, Slow IV Push, ONCE NOW, 1 dose, On Sun03/18/23 at 0530, REGAN [facility] dicyclomine (BENTYL) injection 20 mg 03-18 10:30: 00 03-18 10:03 :00 No 20mg 20 mg, Intramuscu lar, ONCE NOW, 1 dose, On Sun03/18/23 at 0530, Routine [facility] ketorolac (TORADOL) injection 15 mg 03-18 10:15: 00 03-18 09:59 :00 No 15mg 15 mg, Slow IV Push, ONCE NOW, 1 dose, On Sun03/18/23 at 0515, REGAN [facility] piperacilli n-tazobacta m (ZOSYN) 3.375 g in NaCl 0.9% (NS) 100 mL MINI-BAG 03-18 09:30: 00 03-18 10:47 :00 No 3.375g 3.375 g, IV Piggyback, ONCE, 1 dose, On Sun03/18/23 at 0430, Administer over 30 Minutes, 100 mL
Reas on for Anti-Infec tive: Documented Infection< br>Documen lurdes Infection Site: Abdominal< br>Duratio n of Therapy: Other (see Comments) [facility] NaCl 0.9% (NS) bolus infusion 500 mL 03-18 07:15: 00 03-18 08:53 :00 No 500mL at 999 mL/hr, 500 mL, IV Infusion, ONCE, 1 dose, On Sun03/18/23 at 0215, STAT [facility] ondansetron (ZOFRAN-ODT ) disintegrat ing tablet 4 mg 03-18 07:15: 00 03-18 06:26 :00 No 4mg 4 mg, Oral, ONCE, 1 dose, On Sun03/18/23 at 0215, Routine [facility] ondansetron (ZOFRAN (PF)) injection 4 mg 03-18 07:00: 00 03-18 08:34 :00 No 4mg 4 mg, Slow IV Push, ONCE, 1 dose, On Sun03/18/23 at 0200, REGAN [facility] metoprolol tartrate 50 mg tablet 03-15 13:16: 18 03-15 00:00 :00 No 50mg Take 50 mg by mouth 2 (two) times daily. [facility] carvediloL 25 mg tablet 03-15 00:00: 00 Yes [id number] 25mg Take 1 tablet by mouth in the morning and 1 tablet in the evening. Take with meals. [facility] TAKE 1 TABLET BY MOUTH IN THE MORNING AND 1 IN THE EVENING WITH MEALS 03-15 00:00: 00 Yes 25 Serafin Gaytan aspirin 81 mg chewable tablet 02-26 00:00: 00 Yes [id number] 81mg Take 1 tablet by mouth in the morning. [facility] INSTILL 1 DROP IN RIGHT EYE ONCE A DAY 02-26 00:00: 00 Yes Serafin Gaytan CHEW AND SWALLOW 1 TABLET BY MOUTH IN THE MORNING 02-26 00:00: 00 Yes Serafin Gaytan furosemide 40 mg tablet 01-12 00:00: 00 08-18 00:00 :00 No [id number] 40mg Take 1 tablet by mouth in the morning. [facility] INSTILL 1 DROP IN RIGHT EYE TWICE DAILY 01-09 00:00: 00 Yes Serafin Gaytan clopidogreL (PLAVIX) 75 mg tablet 12-11 15:43: 13 12-11 00:00 :00 No 75mg Take 75 mg by mouth daily. [facility] furosemide (LASIX) tablet 40 mg 12-04 14:00: 00 Yes 40mg 40 mg, Oral, DAILY, First dose on Sun12/04/22 at 0900, Until Discontinu ed, Routine [facility] furosemide 40 mg tablet 12-04 00:00: 00 01-04 04:59 :00 No [id number] 40mg Take 1 tablet by mouth in the morning for 30 days. [facility] amLODIPine 10 mg tablet 12-03 15:46: 24 Yes 10mg Take 10 mg by mouth daily. [facility] metoprolol tartrate 50 mg tablet 12-03 15:46: 24 Yes 50mg Take 50 mg by mouth 2 (two) times daily. [facility] clopidogreL (PLAVIX) 75 mg tablet 12-03 15:46: 24 Yes 75mg Take 75 mg by mouth daily. [facility] atorvastati n (LIPITOR) tablet 80 mg 12-03 02:00: 00 Yes 80mg 80 mg, Oral, QHS, First dose on Sun12/02/22 at 2100, Until Discontinu ed, Routine [facility] furosemide (LASIX) injection 40 mg 12-03 01:00: 00 12-03 19:11 :24 No 40mg 40 mg, Slow IV Push, Q12H, First dose (after last modificati on) on 12/02/22 at 2000, Until Discontinu ed, Routine [facility] TAKE 1 TABLET BY MOUTH IN THE MORNING FOR 30 DAYS 12-03 00:00: 00 Yes Serafin Gaytan enoxaparin (LOVENOX) injection 40 mg 12-02 22:00: 00 Yes 40mg 40 mg, Subcutaneo us, DAILY AT 1700, First dose on 12/02/22 at 1700, Until Discontinu ed, Routine [facility] pantoprazol e (PROTONIX) EC tablet 40 mg 12-02 14:00: 00 Yes 40mg 40 mg, Oral, DAILY, First dose on 12/02/22 at 0900, Until Discontinu ed, Routine [facility] lisinopriL (PRINIVIL,Z ESTRIL) tablet 20 mg 12-02 14:00: 00 Yes 20mg 20 mg, Oral, DAILY, First dose on 12/02/22 at 0900, Until Discontinu ed, Routine [facility] clopidogreL (PLAVIX) 75 mg tablet 75 mg 12-02 14:00: 00 Yes 75mg 75 mg, Oral, DAILY, First dose on 12/02/22 at 0900, Until Discontinu ed, Routine [facility] aspirin chewable tablet 81 mg 12-02 14:00: 00 Yes 81mg 81 mg, Oral, DAILY, First dose on 12/02/22 at 0900, Until Discontinu ed, Routine [facility] amLODIPine (NORVASC) tablet 10 mg 12-02 14:00: 00 Yes 10mg 10 mg, Oral, DAILY, First dose on 12/02/22 at 0900, Until Discontinu ed, Routine [facility] furosemide (LASIX) injection 40 mg 12-02 14:00: 00 12-02 21:58 :32 No 40mg 40 mg, Slow IV Push, DAILY, First dose on 12/02/22 at 0900, Until Discontinu ed, Routine [facility] metoprolol tartrate (LOPRESSOR) tablet 50 mg 12-02 13:00: 00 Yes 50mg 50 mg, Oral, BID, First dose on 12/02/22 at 0800, Until Discontinu ed, [facility] gabap[facility] (NEURONTIN) capsule 300 mg 12-02 13:00: 00 Yes 300mg 300 mg, Oral, TID, First dose on 12/02/22 at 0800, Until Discontinu ed, Routine [facility] Sliding Scale Insulin-Reg ular 12-02 12:30: 00 Yes Subcutaneo us, AC+HS, First dose on 12/02/22 at 0730, Until Discontinu ed, Routine [facility] glipiZIDE (GLUCOTROL) tablet 10 mg 12-02 12:30: 00 Yes 10mg 10 mg, Oral, BIDAC, First dose on 12/02/22 at 0730, Until Discontinu ed, Routine [facility] levothyroxi ne (SYNTHROID) tablet 50 mcg 12-02 11:00: 00 Yes 50ug 50 mcg, Oral, QAM-0600, First dose on 12/02/22 at 0600, Until Discontinu ed, Routine [facility] HYDROcodone -acetaminop hen (NORCO) 10-325 mg tablet 1 tablet 12-02 07:28: 13 Yes 1{tbl} 1 tablet, Oral, Q6HPRN, Starting on 12/02/22 at 0228, Until Discontinu ed, Routine, Pain (scale 7-10) [facility] acetaminoph en-codeine (TYLENOL #3) 300-30 mg tablet 1 tablet 12-02 07:28: 10 12-04 07:27 :10 No 1{tbl} 1 tablet, Oral, Q6HPRN, Starting on 12/02/22 at 0228, Until 12/04/22 at 0227, Routine, Pain (scale 4-6) [facility] acetaminoph en (TYLENOL) tablet 650 mg 12-02 07:27: 56 Yes 650mg 650 mg, Oral, Q6HPRN, Starting on 12/02/22 at 0227, Until Discontinu ed, Routine, Pain (scale 1-3) [facility] butalbital- acetaminoph en-caff (ESGIC) 50-325-40 mg tablet 1 tablet 12-02 07:24: 46 Yes 1{tbl} 1 tablet, Oral, Q6HPRN, Starting on 12/02/22 at 0224, Until Discontinu ed, Routine, Headache [facility] furosemide (LASIX) injection 80 mg 12-02 03:45: 00 12-02 03:42 :00 No 80mg 80 mg, IV Push, ONCE, 1 dose, On Sun12/01/22 at 2245, REGAN [facility] levothyroxi ne (SYNTHROID) 50 mcg tablet 11-05 00:00: 00 Yes [id number] 50ug Take 1 tablet by mouth every morning. [facility] TAKE 1 TABLET BY MOUTH ONCE DAILY IN THE MORNING 11-05 00:00: 00 Yes Serafin Gaytan pantoprazol e 40 mg EC tablet 11-02 08:38: 08 11-02 00:00 :00 No 40mg Take 1 tablet by mouth in the morning. [facility] atorvastati n 80 mg tablet 11-02 08:38: 08 11-02 00:00 :00 No 80mg Take 1 tablet by mouth at bedtime. [facility] pantoprazol e 40 mg EC tablet 11-02 00:00: 00 Yes [id number] 40mg Take 1 tablet by mouth in the morning. [facility] TAKE 1 TABLET BY MOUTH AT BEDTIME 11-02 00:00: 00 Yes Serafin Gaytan TAKE 1 TABLET BY MOUTH IN THE MORNING 11-02 00:00: 00 Yes Serafin Gaytan TAKE 1 TABLET BY MOUTH TWICE DAILY BEFORE BREAKFAST AND BEFORE SUPPER 11-02 00:00: 00 Yes Serafin Gaytan TAKE 1 TABLET BY MOUTH IN THE MORNING 11-02 00:00: 00 Yes Serafin Gaytan TAKE 1 TABLET BY MOUTH IN THE MORNING 11-02 00:00: 00 Yes Serafin Gaytan TAKE ONE CAPSULE BY MOUTH IN THE MORNING, ONE CAPSULE AT NOON, AND ONE CAPSULE IN THE EVENING 11-02 00:00: 00 Yes Serafin Gaytan glipiZIDE 10 mg tablet 11-02 00:00: 00 08-25 00:00 :00 No [id number] 10mg Take 1 tablet by mouth 2 (two) times daily before breakfast and dinner. [facility] insulin NPH and regular human 70-30 (HUMULIN 70/30 U-100 INSULIN) 100 unit/mL (70-30) injection 11-02 00:00: 00 08-25 00:00 :00 No [id number] 15U inject 15 Units under the skin 2 (two) times daily before breakfast and dinner. [facility] atorvastati n 80 mg tablet 11-02 00:00: 00 08-25 00:00 :00 No [id number] 80mg Take 1 tablet by mouth at bedtime. [facility] gabapentin 300 mg capsule 11-02 00:00: 00 08-25 00:00 :00 No [id number] 300mg Take 1 capsule by mouth in the morning and 1 capsule at noon and 1 capsule in the evening. [facility] lisinopriL 20 mg tablet 11-02 00:00: 00 07-24 00:00 :00 No [id number] 20mg Take 1 tablet by mouth in the morning. [facility] aspirin 81 mg chewable tablet 11-02 00:00: 00 02-26 00:00 :00 No [id number] 81mg Take 1 tablet by mouth in the morning. [facility] TAKE 1 TABLET BY MOUTH TI 8 HOURS NEEDED 15 00:00: 00 Yes Serafin Gaytan TAKE 1 TABLET BY MOUTH 2 TIMES A DAY 0 3-15 00:00: 00 Yes Serafinprachi Gaytan Dose Unknown 1-11 00:00: 00 Yes Serafin Gaytan Dose Unknown 1-10 00:00: 00 Yes Serafinprachi Gaytan Dose Unknown 1-05 00:00: 00 Yes Serafin Gaytan Dose Unknown 1-05 00:00: 00 Yes Serafin Gaytan INSTILL 1 DROP IN RIGHT EYE TWICE DAILY 0 1-05 00:00: 00 Yes Serafin Gaytan INSTILL ONE (1) DROP INTO RIGHT EYE TWICE DAILY. 2021-07 2-08 00:00: 00 Yes Serafin Gaytan INSTILL 1 DROP INTO RIGHT EYE TWICE DAILY 2021-07 00:00: 00 Yes Serafin Gaytan TAKE 1 TABLET BY MOUTH ONCE DAILY 2021-07 0 00:00: 00 Yes Serafin Gaytan TAKE 1 TABLET BY MOUTH ONCE DAILY 2021-07 020 00:00: 00 Yes Serafin Gaytan TAKE 1 TABLET BY MOUTH TWICE DAILY WITH MEALS 2021-07 020 00:00: 00 Yes Serafin Gaytan TAKE 1 TABLET BY MOUTH TWICE DAILY WITH FOOD 2021-07 020 00:00: 00 Yes Serafin Gaytan Dose Unknown 3-04 00:00: 00 Yes Serafin Gaytan Dose Unknown 3-04 00:00: 00 Yes Serafin Gaytan Dose Unknown 3-04 00:00: 00 Yes Serafin Gaytan Dose Unknown 3-04 00:00: 00 Yes Serafin Gaytan Dose Unknown 3-04 00:00: 00 Yes Serafin Gaytan insulin NPH and regular human 70-30 (HUMULIN 70/30 U-100 INSULIN) 100 unit/mL (70-30) injection - 00:00: 00 - 00:00 :00 No [id number] 15U inject 15 Units under the skin 2 (two) times daily before breakfast and dinner. [facility] pantoprazol e (PROTONIX) 40 mg EC tablet 1-24 09:46: 15 Yes 40mg Take 40 mg by mouth daily. [facility] amLODIPine 10 mg tablet 08-22 09:46: 15 Yes 10mg Take 10 mg by mouth daily. [facility] metoprolol tartrate 50 mg tablet 08-22 09:46: 15 Yes 50mg Take 50 mg by mouth 2 (two) times daily. [facility] clopidogreL (PLAVIX) 75 mg tablet 08-22 09:46: 15 Yes 75mg Take 75 mg by mouth daily. [facility] atorvastati n 80 mg tablet 08-22 09:46: 15 Yes 80mg Take 80 mg by mouth at bedtime. [facility] amlodipine 10 mg tablet 08-18 00:00: 00 Yes 1mg Serafin Gaytan clopidogrel 75 mg tablet 08-18 00:00: 00 Yes 1mg Serafin Gaytan metoprolol tartrate 50 mg tablet 08-18 00:00: 00 Yes 1mg Serafin Gaytan Novolin 70/30 U-100 Insulin 100 unit/mL subcutaneou s suspension 08-18 00:00: 00 Yes unit/mL (70-30) Serafin Gaytan iopamidol (ISOVUE 370-500 mL) injection 100 mL 08-17 11:45: 00 08-17 10:39 :00 No [id number] 100mL 100 mL, Intravenou s, ONCE, 1 dose, On Sun08/17/21 at 0545, Routine [facility] ketorolac (TORADOL) injection 30 mg 08-17 10:00: 00 08-17 08:52 :00 No 30mg 30 mg, Slow IV Push, ONCE, 1 dose, On Sun08/17/21 at 0400, Routine
[employer] team member approving Restricted medication : JASON CANTU [facility] diphenhydrA MINE (BENADRYL) injection 25 mg 08-17 10:00: 00 08-17 08:52 :00 No 25mg 25 mg, Slow IV Push, ONCE, 1 dose, On Sun08/17/21 at 0400, STAT [facility] metoclopram quentin HCl (REGLAN) injection 10 mg 08-17 10:00: 00 08-17 08:52 :00 No 10mg 10 mg, Slow IV Push, ONCE, 1 dose, On Sun08/17/21 at 0400, [facility] butalbital- acetaminoph en-caff 50-325-40 mg tablet 08-17 00:00: 00 08-25 00:00 :00 No [id number] 1{tbl} Take 1 tablet by mouth every 6 (six) hours as needed (Headache) . [facility] atropine (ISOPTO ATROPINE) 1 % ophthalmic drops 1 Drop 08-14 02:00: 00 Yes 1[drp] 1 Drop, Left Eye, BID, First dose on 08/13/21 at 2000, Until Discontinu ed, Routine [facility] dorzolamide -timoloL (COSOPT) 22.3-6.8 mg/mL ophthalmic drops 1 Drop 08-14 02:00: 00 Yes 1[drp] 1 Drop, Left Eye, BID, First dose on 08/13/21 at 2000, Until Discontinu ed, Routine [facility] latanoprost (XALATAN) 0.005 % ophthalmic drops 1 Drop 08-13 23:00: 00 Yes 1[drp] 1 Drop, Left Eye, QPM, First dose on 08/13/21 at 1700, Until Discontinu ed, Routine [facility] prednisoLON E acetate (PRED-FORTE ) 1 % ophthalmic suspension drops 1 Drop 08-13 22:00: 00 Yes 1[drp] 1 Drop, Left Eye, QID, First dose on 08/13/21 at 1600, Until Discontinu ed, Routine [facility] brimonidine (ALPHAGAN) 0.2 % ophthalmic solution 1 Drop 08-13 20:00: 00 Yes 1[drp] 1 Drop, Left Eye, Q8H, First dose on 08/13/21 at 1400, Until Discontinu ed, Routine [facility] pantoprazol e (PROTONIX) 40 mg EC tablet 07-31 06:19: 05 Yes 40mg Take 40 mg by mouth daily. [facility] amLODIPine 10 mg tablet 07-31 06:19: 05 Yes 10mg Take 10 mg by mouth daily. [facility] metoprolol tartrate 50 mg tablet 07-31 06:19: 05 Yes 50mg Take 50 mg by mouth 2 (two) times daily. [facility] clopidogreL (PLAVIX) 75 mg tablet 07-31 06:19: 05 Yes 75mg Take 75 mg by mouth daily. [facility] atorvastati n 80 mg tablet 07-31 06:19: 05 Yes 80mg Take 80 mg by mouth at bedtime. [facility] insulin NPH (HUMULIN N) injection 6 Units 07-30 03:00: 00 Yes 6U 6 Units, Subcutaneo us, QAM+HS, First dose (after last modificati on) on Sun07/29/21 at 2100, Until Discontinu ed, Routine [facility] insulin regular human (HUMULIN R) injection 4 Units 2020-07 23:30: 00 Yes 4U 4 Units, Subcutaneo us, BID MEALS, First dose (after last modificati on) on Sun07/29/21 at 1730, Until Discontinu ed, Routine [facility] brimonidine (ALPHAGAN) 0.2 % ophthalmic solution 1 Drop 2020-07 22:00: 00 Yes 1[drp] 1 Drop, Left Eye, Q4H, First dose (after last modificati on) on Sun07/29/21 at 1600, Until Discontinu ed, Routine [facility] pantoprazol e (PROTONIX) 40 mg EC tablet 2020-07 20:34: 02 Yes 40mg Take 40 mg by mouth daily. [facility] amLODIPine 10 mg tablet 2020-07 20:34: 02 Yes 10mg Take 10 mg by mouth daily. [facility] metoprolol tartrate 50 mg tablet 2020-07 20:34: 02 Yes 50mg Take 50 mg by mouth 2 (two) times daily. [facility] clopidogreL (PLAVIX) 75 mg tablet 2020-07 20:34: 02 Yes 75mg Take 75 mg by mouth daily. [facility] atorvastati n 80 mg tablet 2020-07 20:34: 02 Yes 80mg Take 80 mg by mouth at bedtime. [facility] insulin NPH and regular human 70-30 (NOVOLIN 70/30 U-100 INSULIN) 100 unit/mL (70-30) injection 2020-07 18:32: 31 07-29 00:00 :00 No 20U inject 20 Units under the skin 2 (two) times daily before breakfast and dinner. [facility] guaiFENesin 100 mg/5 mL solution 200 mg 2020-07 00:00: 00 Yes 200mg 200 mg, Oral, Q6H, First dose (after last modificati on) on Sun07/28/21 at 1800, Until Discontinu ed, Routine [facility] artificial tears, hypromellos e, 0.3 % ophthalmic gel 2020-07 00:00: 00 11-27 04:59 :00 No [id number] 1[drp] Place 1 Drop in both eyes at bedtime for 120 days. [facility] latanoprost 0.005 % ophthalmic drops 2020-07 00:00: 00 10-28 04:59 :00 No [id number] 1[drp] Place 1 Drop in left eye at bedtime for 90 days. [facility] insulin NPH 100 unit/mL injection 2020-07 00:00: 00 10-28 04:59 :00 No [id number] 6U inject 6 Units under the skin every morning and at bedtime for 90 days. [facility] artificial tears,hypro mellose, 0.5 % ophthalmic drops 2020-07 00:00: 00 10-28 04:59 :00 No [id number] 1[drp] Place 1 Drop in both eyes 4 (four) times daily for 90 days. [facility] dorzolamide -timoloL 22.3-6.8 mg/mL ophthalmic drops 2020-07 00:00: 00 10-28 04:59 :00 No [id number] 1[drp] Place 1 Drop in left eye 2 (two) times daily for 90 days. [facility] brimonidine 0.2 % ophthalmic solution 2020-07 00:00: 00 10-28 04:59 :00 No [id number] 1[drp] Place 1 Drop in left eye every 4 (four) hours for 90 days. [facility] insulin regular human 100 unit/mL injection 2020-07 00:00: 00 10-28 04:59 :00 No [id number] 4U inject 4 Units under the skin 2 (two) times daily with meals for 90 days. [facility] meclizine (TRAVEL-EAS E (MECLIZINE) ) tablet 25 mg 2020-07 23:57: 00 07-29 01:58 :00 No 25mg 25 mg, Oral, ONCE, 1 dose, On Sun07/28/21 at 1800, Routine [facility] Sliding Scale Insulin-Reg ular + Fsbg Testing 2020-07 22:30: 00 Yes Subcutaneo us, AC+HS, First dose on Sun07/28/21 at 1630, Until Discontinu ed, Routine [facility] insulin regular human (HUMULIN R) injection 7 Units 2020-07 17:45: 00 07-29 23:16 :16 No 7U 7 Units, Subcutaneo us, BID MEALS, First dose on Sun07/28/21 at 1145, Until Discontinu ed, Routine [facility] glucagon (GLUCAGEN DIAGNOSTIC KIT) injection 1 mg 2020-07 17:41: 44 Yes 1mg 1 mg, Intramuscu lar, PRN, Starting on Sun07/28/21 at 1141, Until Discontinu ed, REGAN, Blood Glucose < or = 70 mg/dL and patient is unable to swallow or has mental changes. [facility] dextrose 50 % in water (D50W) injection 25 mL 2020-07 17:41: 44 Yes 25mL 25 mL, Slow IV Push, PRN, Starting on Sun07/28/21 at 1141, Until Discontinu ed, REGAN, Blood Glucose < or = 70 mg/dL and patient is unable to swallow or has mental status changes. [facility] insulin NPH (HUMULIN N) injection 7 Units 2020-07 16:00: 00 07-29 23:16 :16 No 7U 7 Units, Subcutaneo us, QAM+HS, First dose on Sun07/28/21 at 1000, Until Discontinu ed, Routine [facility] levothyroxi ne (SYNTHROID) tablet 50 mcg 2020-07 12:00: 00 07-28 11:21 :00 No 50ug 50 mcg, Oral, QAM-0600, 1 dose, First dose on Sun07/28/21 at 0600, Routine [facility] artificial tears (hypromello se) (GENTEAL TEARS SEVERE GEL) 0.3 % ophthalmic gel 1 Drop 2020-07 03:00: 00 Yes 1[drp] 1 Drop, Both Eyes, QHS, First dose on Sun07/27/21 at 2100, Until Discontinu ed, Routine [facility] latanoprost (XALATAN) 0.005 % ophthalmic drops 1 Drop 2020-07 03:00: 00 Yes 1[drp] 1 Drop, Left Eye, QHS, First dose on Sun07/27/21 at 2100, Until Discontinu ed, Routine [facility] furosemide (LASIX) injection 40 mg 2020-07 02:00: 00 07-29 14:26 :07 No 40mg 40 mg, Slow IV Push, Q12H, First dose (after last modificati on) on Sun07/27/21 at 2000, Until Discontinu ed, Routine [facility] acetaZOLAMI DE (DIAMOX) tablet 250 mg 2020-07 02:00: 00 07-29 21:58 :21 No 250mg 250 mg, Oral, BID, First dose on Sun07/27/21 at 2000, Until Discontinu ed, Routine [facility] brimonidine (ALPHAGAN) 0.2 % ophthalmic solution 1 Drop 2020-07 01:00: 00 07-29 21:58 :21 No 1[drp] 1 Drop, Left Eye, Q1H, First dose on Sun07/27/21 at 1900, Until Discontinu ed, Routine [facility] gadoteridol (PROHANCE-2 0 mL) injection 16.32 mL 2020-07 21:45: 00 07-27 21:45 :00 No [id number] .2mL/kg 16.32 mL (0.2 mL/kg ?81.6 kg), Intravenou s, ONCE, 1 dose, On Sun07/27/21 at 1545, Routine [facility] sulfur hexafluorid e microsphr (LUMASON) injection 5 mL 2020-07 19:15: 00 07-27 19:15 :00 No [id number] 5mL 5 mL, Intravenou s, ONCE, 1 dose, On Sun07/27/21 at 1315, Routine
[employer] team member approving Restricted medication : DONY SARAVIA [facility] LORazepam (ATIVAN) tablet 0.5 mg 2020-07 17:30: 00 07-27 19:53 :00 No .5mg 0.5 mg, Oral, ONCE, 1 dose, On Sun07/27/21 at 1130, Routine [facility] enoxaparin (LOVENOX) injection 40 mg 2020-07 15:00: 00 Yes 40mg 40 mg, Subcutaneo us, DAILY, First dose on Sun07/27/21 at 0900, Until Discontinu ed, Routine [facility] pantoprazol e (PROTONIX) EC tablet 40 mg 2020-07 15:00: 00 Yes 40mg 40 mg, Oral, DAILY, First dose on Sun07/27/21 at 0900, Until Discontinu ed, Routine [facility] clopidogreL (PLAVIX) tablet 75 mg 2020-07 15:00: 00 Yes 75mg 75 mg, Oral, DAILY, First dose on Sun07/27/21 at 0900, Until Discontinu ed, Routine [facility] aspirin chewable tablet 81 mg 2020-07 15:00: 00 Yes 81mg 81 mg, Oral, DAILY, First dose on Sun07/27/21 at 0900, Until Discontinu ed, Routine [facility] furosemide (LASIX) injection 40 mg 2020-07 15:00: 00 07-27 18:46 :39 No 40mg 40 mg, Slow IV Push, DAILY, First dose on Sun07/27/21 at 0900, Until Discontinu ed, Routine [facility] artificial tears(hypro mellose) (ISOPTO-TEA RS) 0.5 % ophthalmic drops 1 Drop 2020-07 14:00: 00 Yes 1[drp] 1 Drop, Both Eyes, QID, First dose on Sun07/27/21 at 0800, Until Discontinu ed, Routine [facility] dorzolamide -timoloL (COSOPT) 22.3-6.8 mg/mL ophthalmic drops 1 Drop 2020-07 14:00: 00 Yes 1[drp] 1 Drop, Left Eye, BID, First dose on Sun07/27/21 at 0800, Until Discontinu ed, Routine [facility] brimonidine (ALPHAGAN) 0.2 % ophthalmic solution 1 Drop 2020-07 12:00: 00 07-28 00:01 :35 No 1[drp] 1 Drop, Left Eye, Q8H, First dose on Sun07/27/21 at 0600, Until Discontinu ed, Routine [facility] guaiFENesin 100 mg/5 mL solution 200 mg 2020-07 06:00: 00 07-28 18:57 :52 No 200mg 200 mg, Oral, Q6H, First dose on Sun07/27/21 at 0000, Until Discontinu ed, Routine [facility] magnesium sulfate in water 4 gram/50 mL (8 %) IV Piggyback 4 g 2020-07 04:30: 00 07-27 05:32 :00 No 4g 4 g, IV Piggyback, ONCE, 1 dose, On Sun07/26/21 at 2230, Routine [facility] atorvastati n (LIPITOR) tablet 80 mg 2020-07 03:00: 00 Yes 80mg 80 mg, Oral, QHS, First dose on Sun07/26/21 at 2100, Until Discontinu ed, Routine [facility] Sliding Scale Insulin - Lispro (HumaLOG) + Fsbg Testing 2020-07 03:00: 00 07-28 17:42 :21 No Subcutaneo us, TID MEALS+HS, First dose on Sun07/26/21 at 2100, Until Discontinu ed, Routine [facility] benzonatate (TESSALON PERLES) capsule 200 mg 2020-07 02:00: 00 Yes 200mg 200 mg, Oral, TID, First dose on Sun07/26/21 at 2000, Until Discontinu ed, Routine [facility] metoprolol tartrate (LOPRESSOR) tablet 50 mg 2020-07 02:00: 00 Yes 50mg 50 mg, Oral, BID, First dose on Sun07/26/21 at 2000, Until Discontinu ed, Routine [facility] gabapentin (NEURONTIN) capsule 300 mg 2020-07 02:00: 00 Yes 300mg 300 mg, Oral, TID, First dose on Sun07/26/21 at 2000, Until Discontinu ed, Routine [facility] glucagon (GLUCAGEN DIAGNOSTIC KIT) injection 1 mg 2020-07 01:54: 31 Yes 1mg 1 mg, Intramuscu lar, PRN, Starting on Sun07/26/21 at 1954, Until Discontinu ed, REGAN, Blood Glucose < or = 70 mg/dL and patient is unable to swallow or has mental changes. [facility] dextrose 50 % in water (D50W) injection 25 mL 2020-07 01:54: 31 Yes 25mL 25 mL, Slow IV Push, PRN, Starting on Sun07/26/21 at 1954, Until Discontinu ed, REGAN, Blood Glucose < or = 70 mg/dL and patient is unable to swallow or has mental status changes. [facility] furosemide (LASIX) injection 20 mg 2020-07 01:40: 00 07-27 01:50 :00 No 20mg 20 mg, Slow IV Push, ONCE, 1 dose, On Sun07/26/21 at 1945, Routine [facility] acetaminoph en (TYLENOL) tablet 650 mg 2020-07 00:52: 38 Yes 650mg 650 mg, Oral, Q6HPRN, Starting on Sun07/26/21 at 1852, Until Discontinu ed, Routine, Pain (scale 1-3) [facility] ipratropium -albuteroL (DUONEB) 0.5 mg-3 mg(2.5 mg base)/3 mL nebulizer solution 3 mL 2020-07 00:47: 21 Yes 3mL 3 mL, Inhalation , Q6HPRN, Starting on Sun07/26/21 at 1847, Until Discontinu ed, Routine, Wheezing, Shortness of Breath [facility] amLODIPine (NORVASC) tablet 10 mg 2020-07 00:30: 00 Yes 10mg 10 mg, Oral, DAILY, First dose on Sun07/26/21 at 1830, Until Discontinu ed, Routine [facility] sotrovimab (XEVUDY) 500 mg in NaCl 0.9% (NS) 50 mL MINI-BAG 2020-07 00:15: 00 07-27 02:21 :00 No 500mg 500 mg, IV Infusion, ONCE, Administer over 30 Minutes, On Sun07/26/21 at 1815, For [address] able 24 hours refrigerat ed or 6 hours at room temperatur e including transporta tion and infusion time.
[facility] clopidogreL (PLAVIX) tablet 75 mg 2020-07 00:05: 00 07-27 01:52 :00 No 75mg 75 mg, Oral, ONCE NOW, 1 dose, On Sun07/26/21 at 1815, Routine [facility] aspirin chewable tablet 81 mg 2020-07 00:05: 00 07-27 01:50 :00 No 81mg 81 mg, Oral, ONCE NOW, 1 dose, On Sun07/26/21 at 1815, Routine [facility] NaCl 0.9% (NS) bolus infusion 1,000 mL 2020-07 19:15: 00 07-26 20:48 :00 No 1000mL at 999 mL/hr, 1,000 mL, IV Infusion, ONCE, 1 dose, On Sun07/26/21 at 1315, REGAN [facility] gabapentin 300 mg capsule 2020-07 00:00: 00 11-02 00:00 :00 No [id number] 300mg Take 1 capsule by mouth 3 (three) times daily. [facility] lisinopriL 20 mg tablet 2020-07 00:00: 00 07-29 00:00 :00 No [id number] 20mg Take 1 tablet by mouth daily. [facility] metoprolol succinate XL 25 mg 24 hr tablet 2020-07 00:00: 00 07-26 00:00 :00 No [id number] 25mg Take 1 tablet by mouth every evening. [facility] glipiZIDE 10 mg tablet 2020-07 00:00: 00 07-26 00:00 :00 No [id number] 10mg Take 1 tablet by mouth 2 (two) times daily before breakfast and dinner. [facility] albuterol 90 mcg/actuati on inhaler 2020-07 00:00: 00 03-20 00:00 :00 No [id number] 2{puff} Inhale 2 Puffs every 4 (four) hours as needed for Wheezing or Shortness of Breath. [facility] methylPREDN ISolone 4 mg tablets 2020-07 00:00: 00 07-26 00:00 :00 No [id number] Take by mouth SEE-INSTRU CTIONS. follow package directions [facility] benzonatate 100 mg capsule 2020-07 00:00: 00 07-26 00:00 :00 No [id number] 100mg Take 1 capsule by mouth 3 (three) times daily as needed for Cough. [facility] doxycycline hyclate 100 mg capsule 2020-07 00:00: 00 06-16 05:59 :00 No [id number] 100mg Take 1 capsule by mouth 2 (two) times daily for 10 days. [facility] Dose Unknown 03-31 00:00: 00 Yes Serfain Gaytan Dose Unknown 03-29 00:00: 00 Yes Serafin Gaytan glipizide 10 mg tablet 11-10 00:00: 00 Yes 1mg Serafin Gaytan lisinopril 10 mg tablet 11-10 00:00: 00 Yes 1mg Serafin Gaytan Dose Unknown 11-10 00:00: 00 Yes Serafin Gaytan Dose Unknown 11-10 00:00: 00 Yes Serafin Gaytan Bactrim DS 800 mg-160 mg tablet 11-10 00:00: 00 Yes 1mg Serafin Gaytan levothyroxi ne 50 mcg tablet 11-10 00:00: 00 Yes 1mcg Serafin Gaytan Dose Unknown 11-10 00:00: 00 Yes Serafin Gaytan Glipizide 03-25 20:33: 00 Yes 10 mg, PO, BID, 0 Refill(s) [facility] Metformin 03-25 20:33: 00 Yes 1,000 mg, PO, BID, 0 Refill(s) [facility] metoprolol tartrate 03-25 20:33: 00 Yes 25 mg, PO, Daily, 0 Refill(s) [facility] Lyrica 03-25 20:33: 00 Yes 150 mg, PO, BID, 0 Refill(s) [facility]amanda Zambrano Livalo 03-25 20:33: 00 Yes 4 mg, PO, Daily, 0 Refill(s) Marissa Zambrano lisinopril 20 mg tablet 12-19 00:00: 00 06-09 00:00 :00 No [id number] 20mg Take 1 tablet by mouth daily. [facility] metoprolol succinate XL 25 mg 24 hr tablet 12-19 00:00: 00 06-09 00:00 :00 No [id number] 25mg Take 1 tablet by mouth every evening. [facility] prednisoLON E acetate 1 % ophthalmic suspension drops 12-17 00:00: 00 07-26 00:00 :00 No [id number] 1[drp] Place 1 Drop in right eye 4 (four) times daily. [facility] tobramycin 0.3 % ophthalmic drops 12-17 00:00: 00 07-26 00:00 :00 No [id number] 9103 1[drp] Place 1 Drop in right eye 4 (four) times daily. [facility] gabapentin 300 mg capsule 12-05 00:00: 00 06-09 00:00 :00 No [id number] 300mg Take 1 capsule by mouth 3 (three) times daily. [facility] GLIPIZIDE 10 mg tablet 11-14 00:00: 00 07-26 00:00 :00 No [id number] TAKE 1 TABLET BY MOUTH TWICE DAILY BEFORE BREAKFAST AND DINNER [facility] glipiZIDE 10 mg tablet 10-07 00:00: 00 06-09 00:00 :00 No [id number] 10mg Take 1 tablet by mouth 2 (two) times daily before breakfast and dinner. [facility] aspirin 81 mg chewable tablet 830 00:00: 00 11-02 00:00 :00 No 81mg Take 1 tablet by mouth daily. [facility] metformin 1,000 mg tablet 10-05 00:00: 00 Yes 1mg Serafin Gaytan lovastatin 20 mg tablet 10-04 00:00: 00 Yes 1mg Serafin Gaytan metformin 500 mg tablet 10-04 00:00: 00 Yes 1mg Serafin F Lukas acetaminoph en-codeine (TYLENOL #3) 300-30 mg tablet 10-03 00:00: 00 07-26 00:00 :00 No 2{tbl} Take 2 Tabs by mouth every 6 (six) hours as needed for Pain (scale 4-6). [facility] amlodipine 10 mg tablet Take 1 tablet every day by oral route. amlodipine 10 mg tablet Take 1 tablet every day by oral route. No 1 Q1D amlodipine 10 mg tablet Take 1 tablet every day by oral route. [facility] Asprin Ec Low Dose 81 mg tablet,jazmín yed release Take 1 tablet every day by oral route. Asprin Ec Low Dose 81 mg tablet,jazmín yed release Take 1 tablet every day by oral route. No 1 Q1D Asprin Ec Low Dose 81 mg tablet,del ayed release Take 1 tablet every day by oral route. [facility] atorvastati n 80 mg tablet Take 1 tablet every day by oral route. atorvastati n 80 mg tablet Take 1 tablet every day by oral route. No 1 Q1D atorvastat in 80 mg tablet Take 1 tablet every day by oral route. [facility] gabapentin 300 mg capsule Take 1 capsule 3 times a day by oral route. gabapentin 300 mg capsule Take 1 capsule 3 times a day by oral route. No 1capsul e(s) TID gabapentin 300 mg capsule Take 1 capsule 3 times a day by oral route. [facility] glipizide 5 mg tablet Take 1 tablet twice a day by oral route. glipizide 5 mg tablet Take 1 tablet twice a day by oral route. No 1 BID glipizide 5 mg tablet Take 1 tablet twice a day by oral route. [facility] levothyroxi ne 50 mcg tablet Take 1 tablet every day by oral route. levothyroxi ne 50 mcg tablet Take 1 tablet every day by oral route. No 1 Q1D levothyrox ine 50 mcg tablet Take 1 tablet every day by oral route. [facility] lisinopril 20 mg tablet Take 1 tablet every day by oral route. lisinopril 20 mg tablet Take 1 tablet every day by oral route. No 1 Q1D lisinopril 20 mg tablet Take 1 tablet every day by oral route. [facility] metformin 500 mg tablet Take 1 tablet twice a day by oral route. metformin 500 mg tablet Take 1 tablet twice a day by oral route. No 1 BID metformin 500 mg tablet Take 1 tablet twice a day by oral route. [facility] metoprolol tartrate 50 mg tablet Take 1 tablet twice a day by oral route. metoprolol tartrate 50 mg tablet Take 1 tablet twice a day by oral route. No 1 BID metoprolol tartrate 50 mg tablet Take 1 tablet twice a day by oral route. [facility] pantoprazol e 40 mg tablet,jazmín yed release Take 1 tablet every day by oral route. pantoprazol e 40 mg tablet,jazmín yed release Take 1 tablet every day by oral route. No 1 Q1D pantoprazo le 40 mg tablet,del ayed release Take 1 tablet every day by oral route. [facility] Ordered Immunization Name Filled Immunization Name Date Status Comments Source Influenza, High-Dose, Trivalent, PF (FLUZONE) 2024-04-23 00:00:00 Completed [facility] DTAP 2024-04-23 00:00:00 Completed [facility] SARS-COV-2 COVID-19 PFIZER VACCINE 2024-04-23 00:00:00 Completed [facility] Influenza Virus Vaccine (3+ yrs) 2024-04-23 00:00:00 Completed [facility] SARS-COV-2 COVID-19 PFIZER VACCINE 2024-04-11 00:00:00 Completed [facility] Prevnar 20 Prevnar 20 2024-01-16 00:00:00 Fabricio Gaytan Influenza, injectable, Madin [facility] Canine Kidney, preservative-free, quadrivalent Influenza, injectable, Madin Homer Canine Kidney, preservative-free, quadrivalent 2024-01-16 00:00:00 Completed Serafin Gaytan Prevnar 20 Prevnar 20 2024-01-16 00:00:00 Completed Serafin Gaytan Influenza, injectable, Madin [facility] Canine Kidney, preservative-free, quadrivalent Influenza, injectable, [facility]in [facility] Canine Kidney, preservative-free, quadrivalent 2024-01-16 00:00:00 Completed Serafin Gaytan Influenza High Dose 2023-11-22 00:00:00 Completed [facility] DTAP 2023-11-22 00:00:00 Completed [facility] SARS-COV-2 COVID-19 PFIZER VACCINE 2023-11-22 00:00:00 Completed [facility] Influenza Virus Vaccine (3+ yrs) 2023-11-22 00:00:00 Completed [facility] Influenza High Dose 2023-08-18 00:00:00 Completed [facility] DTAP 2023-08-18 00:00:00 Completed [facility] SARS-COV-2 COVID-19 PFIZER VACCINE 2023-08-18 00:00:00 Completed [facility] Influenza Virus Vaccine (3+ yrs) 2023-08-18 00:00:00 Completed [facility] Influenza High Dose 2023-07-24 00:00:00 Completed [facility] DTAP 2023-07-24 00:00:00 Completed [facility] SARS-COV-2 COVID-19 PFIZER VACCINE 2023-07-24 00:00:00 Completed [facility] Influenza Virus Vaccine (3+ yrs) 2023-07-24 00:00:00 Completed [facility] Influenza High Dose 2023-07-24 00:00:00 Completed [facility] DTAP 2023-07-24 00:00:00 Completed [facility] SARS-COV-2 COVID-19 PFIZER VACCINE 2023-07-24 00:00:00 Completed [facility] Influenza Virus Vaccine (3+ yrs) 2023-07-24 00:00:00 Completed [facility] Influenza Virus Vaccine (3+ yrs) 2022-05-10 00:00:00 Completed [facility] Influenza Virus Vaccine (3+ yrs) 2022-05-10 00:00:00 Completed [facility] Influenza Virus Vaccine (3+ yrs) 2022-05-10 00:00:00 Completed [facility] Influenza Virus Vaccine (3+ yrs) 2022-05-10 00:00:00 Completed [facility] Influenza Virus Vaccine (3+ yrs) 2022-05-10 00:00:00 Completed [facility] Influenza Virus Vaccine (3+ yrs) 2022-05-10 00:00:00 Completed [facility] Influenza Virus Vaccine (3+ yrs) 2022-05-10 00:00:00 Completed [facility] Influenza Virus Vaccine (3+ yrs) 2022-05-10 00:00:00 Completed [facility] Influenza Virus Vaccine (3+ yrs) 2022-05-10 00:00:00 Completed [facility] Influenza Virus Vaccine (3+ yrs) 2022-05-10 00:00:00 Completed [facility] Influenza Virus Vaccine (3+ yrs) 2022-05-10 00:00:00 Completed [facility] Influenza Virus Vaccine (3+ yrs) 2022-05-10 00:00:00 Completed [facility] Influenza Virus Vaccine (3+ yrs) 2022-05-10 00:00:00 Completed [facility] Influenza Virus Vaccine (3+ yrs) 2022-05-10 00:00:00 Completed [facility] Influenza Virus Vaccine (3+ yrs) 2022-05-10 00:00:00 Completed [facility] Influenza Virus Vaccine (3+ yrs) 2022-05-10 00:00:00 Completed [facility] Influenza Virus Vaccine (3+ yrs) 2022-05-10 00:00:00 Completed [facility] Influenza Virus Vaccine (3+ yrs) 2022-05-10 00:00:00 Completed [facility] Influenza Virus Vaccine (3+ yrs) 2022-05-10 00:00:00 Completed [facility] Influenza Virus Vaccine (3+ yrs) 2022-05-10 00:00:00 Completed [facility] Influenza Virus Vaccine (3+ yrs) 2022-05-10 00:00:00 Completed [facility] Influenza Virus Vaccine (3+ yrs) 2022-05-10 00:00:00 Completed [facility] Influenza Virus Vaccine (3+ yrs) 2022-05-10 00:00:00 Completed [facility] Influenza Virus Vaccine (3+ yrs) 2022-05-10 00:00:00 Completed [facility] Influenza Virus Vaccine (3+ yrs) 2022-05-10 00:00:00 Completed [facility] Influenza High Dose 2021-05-04 00:00:00 Completed [facility] DTAP 2021-05-04 00:00:00 Completed [facility] Influenza High Dose 2021-05-04 00:00:00 Completed [facility] DTAP 2021-05-04 00:00:00 Completed [facility] Influenza High Dose 2021-05-04 00:00:00 Completed [facility] DTAP 2021-05-04 00:00:00 Completed [facility] Influenza High Dose 2021-05-04 00:00:00 Completed [facility] DTAP 2021-05-04 00:00:00 Completed [facility] Influenza High Dose 2021-05-04 00:00:00 Completed [facility] DTAP 2021-05-04 00:00:00 Completed [facility] Influenza High Dose 2021-05-04 00:00:00 Completed [facility] DTAP 2021-05-04 00:00:00 Completed [facility] Influenza High Dose 2021-05-04 00:00:00 Completed [facility] DTAP 2021-05-04 00:00:00 Completed [facility] Influenza High Dose 2021-05-04 00:00:00 Completed [facility] DTAP 2021-05-04 00:00:00 Completed [facility] Influenza High Dose 2021-05-04 00:00:00 Completed [facility] DTAP 2021-05-04 00:00:00 Completed [facility] Influenza High Dose 2021-05-04 00:00:00 Completed [facility] DTAP 2021-05-04 00:00:00 Completed [facility] Influenza High Dose 2021-05-04 00:00:00 Completed [facility] DTAP 2021-05-04 00:00:00 Completed [facility] Influenza High Dose 2021-05-04 00:00:00 Completed [facility] DTAP 2021-05-04 00:00:00 Completed [facility] Influenza High Dose 2021-05-04 00:00:00 Completed [facility] DTAP 2021-05-04 00:00:00 Completed [facility] Influenza High Dose 2021-05-04 00:00:00 Completed [facility] DTAP 2021-05-04 00:00:00 Completed [facility] Influenza High Dose 2021-05-04 00:00:00 Completed [facility] DTAP 2021-05-04 00:00:00 Completed [facility] Influenza High Dose 2021-05-04 00:00:00 Completed [facility] DTAP 2021-05-04 00:00:00 Completed [facility] Influenza High Dose 2021-05-04 00:00:00 Completed [facility] DTAP 2021-05-04 00:00:00 Completed [facility] Influenza High Dose 2021-05-04 00:00:00 Completed [facility] DTAP 2021-05-04 00:00:00 Completed [facility] Influenza High Dose 2021-05-04 00:00:00 Completed [facility] DTAP 2021-05-04 00:00:00 Completed [facility] Influenza High Dose 2021-05-04 00:00:00 Completed [facility] DTAP 2021-05-04 00:00:00 Completed [facility] Influenza High Dose 2021-05-04 00:00:00 Completed [facility] DTAP 2021-05-04 00:00:00 Completed [facility] Influenza High Dose 2021-05-04 00:00:00 Completed [facility] DTAP 2021-05-04 00:00:00 Completed [facility] Influenza High Dose 2021-05-04 00:00:00 Completed [facility] DTAP 2021-05-04 00:00:00 Completed [facility] Influenza High Dose 2021-05-04 00:00:00 Completed [facility] DTAP 2021-05-04 00:00:00 Completed [facility] Influenza High Dose 2021-05-04 00:00:00 Completed [facility] DTAP 2021-05-04 00:00:00 Completed [facility] Influenza High Dose 2021-05-04 00:00:00 Completed [facility] DTAP 2021-05-04 00:00:00 Completed [facility] Influenza High Dose 2021-05-04 00:00:00 Completed [facility] DTAP 2021-05-04 00:00:00 Completed [facility] Influenza High Dose 2021-05-04 00:00:00 Completed [facility] DTAP 2021-05-04 00:00:00 Completed [facility] Influenza High Dose 2021-05-04 00:00:00 Completed [facility] DTAP 2021-05-04 00:00:00 Completed [facility] Influenza High Dose 2021-05-04 00:00:00 Completed [facility] DTAP 2021-05-04 00:00:00 Completed [facility] Influenza High Dose 2021-05-04 00:00:00 Completed [facility] DTAP 2021-05-04 00:00:00 Completed [facility] Influenza High Dose 2021-05-04 00:00:00 Completed [facility] DTAP 2021-05-04 00:00:00 Completed [facility] Influenza High Dose 2021-05-04 00:00:00 Completed [facility] DTAP 2021-05-04 00:00:00 Completed [facility] SARS-COV-2 COVID-19 PFIZER VACCINE 2021-04-28 00:00:00 Completed [facility] SARS-COV-2 COVID-19 PFIZER VACCINE 2021-04-28 00:00:00 Completed [facility] SARS-COV-2 COVID-19 PFIZER VACCINE 2021-04-28 00:00:00 Completed [facility] SARS-COV-2 COVID-19 PFIZER VACCINE 2021-04-28 00:00:00 Completed [facility] SARS-COV-2 COVID-19 PFIZER VACCINE 2021-04-28 00:00:00 Completed [facility] SARS-COV-2 COVID-19 PFIZER VACCINE 2021-04-28 00:00:00 Completed [facility] SARS-COV-2 COVID-19 PFIZER VACCINE 2021-04-28 00:00:00 Completed [facility] SARS-COV-2 COVID-19 PFIZER VACCINE 2021-04-28 00:00:00 Completed [facility] SARS-COV-2 COVID-19 PFIZER VACCINE 2021-04-28 00:00:00 Completed [facility] SARS-COV-2 COVID-19 PFIZER VACCINE 2021-04-28 00:00:00 Completed [facility] SARS-COV-2 COVID-19 PFIZER VACCINE 2021-04-28 00:00:00 Completed [facility] SARS-COV-2 COVID-19 PFIZER VACCINE 2021-04-28 00:00:00 Completed [facility] SARS-COV-2 COVID-19 PFIZER VACCINE 2021-04-28 00:00:00 Completed [facility] SARS-COV-2 COVID-19 PFIZER VACCINE 2021-04-28 00:00:00 Completed [facility] SARS-COV-2 COVID-19 PFIZER VACCINE 2021-04-28 00:00:00 Completed [facility] SARS-COV-2 COVID-19 PFIZER VACCINE 2021-04-28 00:00:00 Completed [facility] SARS-COV-2 COVID-19 PFIZER VACCINE 2021-04-28 00:00:00 Completed [facility] SARS-COV-2 COVID-19 PFIZER VACCINE 2021-04-28 00:00:00 Completed [facility] SARS-COV-2 COVID-19 PFIZER VACCINE 2021-04-28 00:00:00 Completed [facility] SARS-COV-2 COVID-19 PFIZER VACCINE 2021-04-28 00:00:00 Completed [facility] SARS-COV-2 COVID-19 PFIZER VACCINE 2021-04-28 00:00:00 Completed [facility] SARS-COV-2 COVID-19 PFIZER VACCINE 2021-04-28 00:00:00 Completed [facility] SARS-COV-2 COVID-19 PFIZER VACCINE 2021-04-28 00:00:00 Completed [facility] SARS-COV-2 COVID-19 PFIZER VACCINE 2021-04-28 00:00:00 Completed [facility] SARS-COV-2 COVID-19 PFIZER VACCINE 2021-04-28 00:00:00 Completed [facility] SARS-COV-2 COVID-19 PFIZER VACCINE 2021-04-28 00:00:00 Completed [facility] SARS-COV-2 COVID-19 PFIZER VACCINE 2021-04-28 00:00:00 Completed [facility] SARS-COV-2 COVID-19 PFIZER VACCINE 2021-04-28 00:00:00 Completed [facility] SARS-COV-2 COVID-19 PFIZER VACCINE 2021-04-28 00:00:00 Completed [facility] SARS-COV-2 COVID-19 PFIZER VACCINE 2021-04-28 00:00:00 Completed [facility] SARS-COV-2 COVID-19 PFIZER VACCINE 2021-04-28 00:00:00 Completed [facility] SARS-COV-2 COVID-19 PFIZER VACCINE 2021-04-28 00:00:00 Completed [facility] SARS-COV-2 COVID-19 PFIZER VACCINE 2021-04-28 00:00:00 Completed [facility] SARS-COV-2 COVID-19 PFIZER VACCINE 2021-04-07 00:00:00 Completed [facility] SARS-COV-2 COVID-19 PFIZER VACCINE 2021-04-07 00:00:00 Completed [facility] SARS-COV-2 COVID-19 PFIZER VACCINE 2021-04-07 00:00:00 Completed [facility] SARS-COV-2 COVID-19 PFIZER VACCINE 2021-04-07 00:00:00 Completed [facility] SARS-COV-2 COVID-19 PFIZER VACCINE 2021-04-07 00:00:00 Completed [facility] SARS-COV-2 COVID-19 PFIZER VACCINE 2021-04-07 00:00:00 Completed [facility] SARS-COV-2 COVID-19 PFIZER VACCINE 2021-04-07 00:00:00 Completed [facility] SARS-COV-2 COVID-19 PFIZER VACCINE 2021-04-07 00:00:00 Completed [facility] SARS-COV-2 COVID-19 PFIZER VACCINE 2021-04-07 00:00:00 Completed [facility] SARS-COV-2 COVID-19 PFIZER VACCINE 2021-04-07 00:00:00 Completed [facility] SARS-COV-2 COVID-19 PFIZER VACCINE 2021-04-07 00:00:00 Completed [facility] SARS-COV-2 COVID-19 PFIZER VACCINE 2021-04-07 00:00:00 Completed [facility] SARS-COV-2 COVID-19 PFIZER VACCINE 2021-04-07 00:00:00 Completed [facility] SARS-COV-2 COVID-19 PFIZER VACCINE 2021-04-07 00:00:00 Completed [facility] SARS-COV-2 COVID-19 PFIZER VACCINE 2021-04-07 00:00:00 Completed [facility] SARS-COV-2 COVID-19 PFIZER VACCINE 2021-04-07 00:00:00 Completed [facility] SARS-COV-2 COVID-19 PFIZER VACCINE 2021-04-07 00:00:00 Completed [facility] SARS-COV-2 COVID-19 PFIZER VACCINE 2021-04-07 00:00:00 Completed [facility] SARS-COV-2 COVID-19 PFIZER VACCINE 2021-04-07 00:00:00 Completed [facility] SARS-COV-2 COVID-19 PFIZER VACCINE 2021-04-07 00:00:00 Completed [facility] SARS-COV-2 COVID-19 PFIZER VACCINE 2021-04-07 00:00:00 Completed [facility] SARS-COV-2 COVID-19 PFIZER VACCINE 2021-04-07 00:00:00 Completed [facility] SARS-COV-2 COVID-19 PFIZER VACCINE 2021-04-07 00:00:00 Completed [facility] SARS-COV-2 COVID-19 PFIZER VACCINE 2021-04-07 00:00:00 Completed [facility] SARS-COV-2 COVID-19 PFIZER VACCINE 2021-04-07 00:00:00 Completed [facility] SARS-COV-2 COVID-19 PFIZER VACCINE 2021-04-07 00:00:00 Completed [facility] SARS-COV-2 COVID-19 PFIZER VACCINE 2021-04-07 00:00:00 Completed [facility] SARS-COV-2 COVID-19 PFIZER VACCINE 2021-04-07 00:00:00 Completed [facility] SARS-COV-2 COVID-19 PFIZER VACCINE 2021-04-07 00:00:00 Completed [facility] SARS-COV-2 COVID-19 PFIZER VACCINE 2021-04-07 00:00:00 Completed [facility] SARS-COV-2 COVID-19 PFIZER VACCINE 2021-04-07 00:00:00 Completed [facility] SARS-COV-2 COVID-19 PFIZER VACCINE 2021-04-07 00:00:00 Completed [facility] SARS-COV-2 COVID-19 PFIZER VACCINE 2021-04-07 00:00:00 Completed [facility] Vital Signs Vital Name Observation Time Observation Value Comments S ource Systolic blood pressure 2024-04-07 18:52:00 149 mm[Hg] [facility] Diastolic blood pressure 2024-04-07 18:52:00 72 mm[Hg] [facility] Heart rate 2024-04-07 18:52:00 68 /min [facility] Oxygen saturation in Arterial blood by Pulse oximetry 2024-04-07 18:52:00 97 /min [facility] Respiratory rate 2024-04-07 18:50:00 16 /min [facility] Body height 2024-04-07 18:50:00 152.4 cm [facility] Body weight 2024-04-07 18:50:00 82.101 kg [facility] BMI 2024-04-07 18:50:00 35.35 kg/m2 [facility] Systolic blood pressure 2023-03-27 18:05:00 180 mm[Hg] [facility] Diastolic blood pressure 2023-03-27 18:05:00 90 mm[Hg] [facility] Heart rate 2023-03-27 15:57:00 73 /min [facility] Body temperature 2023-03-27 15:57:00 37.17 [place] [facility] Body height 2023-03-27 15:57:00 152.4 cm [facility] Body weight 2023-03-27 15:57:00 78.563 kg [facility] BMI 2023-03-27 15:57:00 33.83 kg/m2 [facility] Oxygen saturation in Arterial blood by Pulse oximetry 2023-03-27 15:57:00 97 /min [facility] Systolic blood pressure 2023-03-20 16:00:00 136 mm[Hg] [facility] Diastolic blood pressure 2023-03-20 16:00:00 64 mm[Hg] [facility] Heart rate 2023-03-20 16:00:00 68 /min [facility] Body temperature 2023-03-20 16:00:00 36.72 [place] [facility] Respiratory rate 2023-03-20 16:00:00 16 /min [facility] Oxygen saturation in Arterial blood by Pulse oximetry 2023-03-20 16:00:00 98 /min [facility] Body height 2023-03-18 17:00:00 152.4 cm [facility] Body weight 2023-03-18 13:04:00 81.647 kg [facility] BMI 2023-03-18 13:04:00 35.15 kg/m2 [facility] Systolic blood pressure 2023-03-19 12:29:00 112 mm[Hg] [facility] Diastolic blood pressure 2023-03-19 12:29:00 51 mm[Hg] [facility] Heart rate 2023-03-19 12:00:00 70 /min [facility] Body temperature 2023-03-19 12:00:00 36.89 [place] [facility] Respiratory rate 2023-03-19 12:00:00 16 /min [facility] Oxygen saturation in Arterial blood by Pulse oximetry 2023-03-19 12:00:00 93 /min [facility] Body height 2023-03-18 17:00:00 152.4 cm [facility] Body weight 2023-03-18 13:04:00 81.647 kg [facility] BMI 2023-03-18 13:04:00 35.15 kg/m2 [facility] Systolic blood pressure 2023-03-18 11:35:00 132 mm[Hg] [facility] Diastolic blood pressure 2023-03-18 11:35:00 58 mm[Hg] [facility] Heart rate 2023-03-18 11:35:00 83 /min [facility] Body temperature 2023-03-18 11:35:00 37.11 [place] [facility] Respiratory rate 2023-03-18 11:35:00 21 /min [facility] Oxygen saturation in Arterial blood by Pulse oximetry 2023-03-18 11:35:00 96 /min [facility] Body height 2023-03-18 05:44:00 152.4 cm [facility] Body weight 2023-03-18 05:44:00 81.647 kg [facility] BMI 2023-03-18 05:44:00 35.15 kg/m2 [facility] Systolic blood pressure 2023-03-15 18:08:00 178 mm[Hg] [facility] Diastolic blood pressure 2023-03-15 18:08:00 85 mm[Hg] [facility] Heart rate 2023-03-15 18:08:00 61 /min [facility] Body height 2023-03-15 18:08:00 152.4 cm [facility] Body weight 2023-03-15 18:08:00 75.887 kg [facility] BMI 2023-03-15 18:08:00 32.67 kg/m2 [facility] Oxygen saturation in Arterial blood by Pulse oximetry 2023-03-15 18:08:00 99 /min [facility] BP Diastolic 2022-12-19 00:00:00 84 mm[Hg] [facility] Height 2022-12-19 00:00:00 60 [in_i] [facility] BMI (Body Mass Index) 2022-12-19 00:00:00 32.8 kg/m2 [facility] BP Systolic 2022-12-19 00:00:00 128 mm[Hg] [facility] Body Weight 2022-12-19 00:00:00 168 [lb_av] [facility] Systolic blood pressure 2022-12-11 20:35:00 151 mm[Hg] [facility] Diastolic blood pressure 2022-12-11 20:35:00 86 mm[Hg] [facility] Heart rate 2022-12-11 20:35:00 74 /min [facility] Body height 2022-12-11 20:35:00 152.4 cm [facility] Body weight 2022-12-11 20:35:00 73.936 kg [facility] BMI 2022-12-11 20:35:00 31.83 kg/m2 [facility] Oxygen saturation in Arterial blood by Pulse oximetry 2022-12-11 20:35:00 100 /min [facility] Systolic blood pressure 2022-12-07 13:27:00 163 mm[Hg] [facility] Diastolic blood pressure 2022-12-07 13:27:00 79 mm[Hg] [facility] Heart rate 2022-12-07 13:25:00 79 /min [facility] Body temperature 2022-12-07 13:25:00 36.67 [place] [facility] Respiratory rate 2022-12-07 13:25:00 16 /min [facility] Body height 2022-12-07 13:25:00 152.4 cm [facility] Body weight 2022-12-07 13:25:00 74.662 kg [facility] BMI 2022-12-07 13:25:00 32.15 kg/m2 [facility] Oxygen saturation in Arterial blood by Pulse oximetry 2022-12-07 13:25:00 98 /min [facility] Systolic blood pressure 2022-12-03 16:18:00 143 mm[Hg] [facility] Diastolic blood pressure 2022-12-03 16:18:00 77 mm[Hg] [facility] Heart rate 2022-12-03 16:18:00 67 /min [facility] Body temperature 2022-12-03 16:18:00 36.67 [place] [facility] Respiratory rate 2022-12-03 16:18:00 18 /min [facility] Oxygen saturation in Arterial blood by Pulse oximetry 2022-12-03 16:18:00 94 /min [facility] Body weight 2022-12-03 10:00:00 78.019 kg [facility] BMI 2022-12-03 10:00:00 33.59 kg/m2 [facility] Body height 2022-12-02 09:27:00 152.4 cm [facility] Systolic blood pressure 2022-11-02 13:42:00 168 mm[Hg] [facility] Diastolic blood pressure 2022-11-02 13:42:00 82 mm[Hg] [facility] Heart rate 2022-11-02 13:15:00 78 /min [facility] 2022-11-02 13:15:00 36.89 [place] [facility] Respiratory rate 2022-11-02 13:15:00 18 /min [facility] Body height 2022-11-02 13:15:00 152.4 cm [facility] Body weight 2022-11-02 13:15:00 72.53 kg [facility] BMI 2022-11-02 13:15:00 31.23 kg/m2 [facility] Oxygen saturation in Arterial blood by Pulse oximetry 2022-11-02 13:15:00 100 /min [facility] Systolic blood pressure 2021-08-17 11:30:00 134 mm[Hg] [facility] Diastolic blood pressure 2021-08-17 11:30:00 75 mm[Hg] [facility] Heart rate 2021-08-17 11:30:00 87 /min [facility] Respiratory rate 2021-08-17 11:30:00 16 /min [facility] Oxygen saturation in Arterial blood by Pulse oximetry 2021-08-17 11:30:00 97 /min [facility] Body temperature 2021-08-17 08:17:00 36.72 [place] [facility] Body height 2021-08-17 08:17:00 152.4 cm [facility] weight 2021-08-17 08:17:00 77.111 kg [facility] BMI 2021-08-17 08:17:00 33.20 kg/m2 [facility] Systolic blood pressure 2021-08-13 19:35:00 179 mm[Hg] [facility] Diastolic blood pressure 2021-08-13 19:35:00 89 mm[Hg] [facility] Heart rate 2021-08-13 19:35:00 83 /min [facility] Respiratory rate 2021-08-13 19:35:00 18 /min [facility] Oxygen saturation in Arterial blood by Pulse oximetry 2021-08-13 19:35:00 98 /min [facility] Body weight 2021-08-13 17:00:00 81.6 kg [facility] BMI 2021-08-13 17:00:00 35.13 kg/m2 [facility] Body temperature 2021-08-13 15:33:00 37 [place] [facility] Systolic blood pressure 2021-07-29 21:37:00 127 mm[Hg] [facility] Diastolic blood pressure 2021-07-29 21:37:00 66 mm[Hg] [facility] Oxygen saturation in Arterial blood by Pulse oximetry 2021-07-29 21:37:00 100 /min [facility] Heart rate 2021-07-29 21:33:00 56 /min [facility] Body temperature 2021-07-29 21:33:00 35.94 [place] [facility] Respiratory rate 2021-07-29 21:33:00 16 /min [facility] Body height 2021-07-27 05:46:00 152.4 cm [facility] Body weight 2021-07-26 17:47:00 81.647 kg [facility] BMI 2021-07-26 17:47:00 35.15 kg/m2 [facility] Systolic blood pressure 2021-06-09 16:51:00 108 mm[Hg] [facility] Diastolic blood pressure 2021-06-09 16:51:00 83 mm[Hg] [facility] Heart rate 2021-06-09 16:51:00 88 /min [facility] Body temperature 2021-06-09 16:51:00 37 [place] [facility] Respiratory rate 2021-06-09 16:51:00 20 /min [facility] Body height 2021-06-09 16:51:00 152.4 cm [facility] Body weight 2021-06-09 16:51:00 79.062 kg [facility] BMI 2021-06-09 16:51:00 34.04 kg/m2 [facility] Oxygen saturation in Arterial blood by Pulse oximetry 2021-06-09 16:51:00 97 /min [place] [facility] BP Systolic 2024-10-09 09:19:00 149 mm[Hg] Step hen F Lukas BP Diastolic 2024-10-09 09:19:00 83 mm[Hg] Juve phen F Lukas Weight Measured 2024-10-09 09:19:00 180.00 pounds Serafin Werner Gaytan Height Measured 2024-10-09 09:19:00 59.84 inches Serafin F Lukas Body Temperature 2024-10-09 09:19:00 98.90 degrees Serafin F Lukas Heart Rate 2024-10-09 09:19:00 86.00 /min Desiree en F Lukas Respiratory Rate 2024-10-09 09:19:00 Serafin F Lukas BP Systolic 2024-08-07 08:52:00 133 mm[Hg] Step hen F Lukas BP Diastolic 2024-08-07 08:52:00 67 mm[Hg] Juve phen F Lukas Weight Measured 2024-08-07 08:52:00 181.00 pounds Serafin F Lukas Height Measured 2024-08-07 08:52:00 59.84 inches Serafin F Lukas Body Temperature 2024-08-07 08:52:00 98.40 degrees Serafin F Lukas Heart Rate 2024-08-07 08:52:00 70.00 /min Desiree en F Lukas Respiratory Rate 2024-08-07 08:52:00 Serafin F Lukas BP Systolic 2024-04-15 09:31:00 161 mm[Hg] Step hen F Lukas BP Diastolic 2024-04-15 09:31:00 88 mm[Hg] Juve phen F Lukas Weight Measured 2024-04-15 09:31:00 173.40 pounds Serafin F Lukas Height Measured 2024-04-15 09:31:00 59.84 inches Serafin F Lukas Body Temperature 2024-04-15 09:31:00 98.20 degrees Serafin F Lukas Heart Rate 2024-04-15 09:31:00 73.00 /min Desiree en F Lukas Respiratory Rate 2024-04-15 09:31:00 Serafin F Lukas BP Systolic 2024-04-15 08:52:00 161 mm[Hg] Step hen F Lukas BP Diastolic 2024-04-15 08:52:00 88 mm[Hg] Juve phen F Lukas Weight Measured 2024-04-15 08:52:00 173.40 pounds Serafin F Lukas Height Measured 2024-04-15 08:52:00 59.84 inches Serafin F Lukas Body Temperature 2024-04-15 08:52:00 98.20 degrees Serafin F Lukas Heart Rate 2024-04-15 08:52:00 73.00 /min Desiree en F Lukas Respiratory Rate 2024-04-15 08:52:00 Serafin F Lukas BP Systolic 2024-03-24 10:12:00 181 mm[Hg] Step hen F Lukas BP Diastolic 2024-03-24 10:12:00 97 mm[Hg] Juve phen F Lukas Weight Measured 2024-03-24 10:12:00 176.80 pounds Serafin F Lukas Height Measured 2024-03-24 10:12:00 59.84 inches Serafin F Lukas Body Temperature 2024-03-24 10:12:00 98.00 degrees Serafin F Lukas Heart Rate 2024-03-24 10:12:00 102.00 /min Step hen F Lukas Respiratory Rate 2024-03-24 10:12:00 18.00 /min Serafin F Lukas BP Systolic 2024-03-24 09:26:00 181 mm[Hg] Step hen F Lukas BP Diastolic 2024-03-24 09:26:00 97 mm[Hg] Juve phen F Lukas Weight Measured 2024-03-24 09:26:00 176.80 pounds Serafin F Lukas Height Measured 2024-03-24 09:26:00 59.84 inches Serafin F Lukas Body Temperature 2024-03-24 09:26:00 98.00 degrees Serafin F Lukas Heart Rate 2024-03-24 09:26:00 102.00 /min Step hen F Lukas Respiratory Rate 2024-03-24 09:26:00 18.00 /min Serafin F Lukas BP Systolic 2024-03-10 10:12:00 178 mm[Hg] Step hen F Lukas BP Diastolic 2024-03-10 10:12:00 83 mm[Hg] Juve phen F Lukas Weight Measured 2024-03-10 10:12:00 175.20 pounds Serafin F Lukas Height Measured 2024-03-10 10:12:00 59.84 inches Serafin F Lukas Body Temperature 2024-03-10 10:12:00 98.60 degrees Serafin F Lukas Heart Rate 2024-03-10 10:12:00 79.00 /min Desiree en F Lukas Respiratory Rate 2024-03-10 10:12:00 Serafin F Lukas BP Systolic 2024-01-16 09:44:00 180 mm[Hg] Step hen F Lukas BP Diastolic 2024-01-16 09:44:00 80 mm[Hg] Juve phen F Lukas Weight Measured 2024-01-16 09:44:00 184.00 pounds Serafin F Lukas Height Measured 2024-01-16 09:44:00 59.84 inches Serafin F Lukas Body Temperature 2024-01-16 09:44:00 98.40 degrees Serafin F Lukas Heart Rate 2024-01-16 09:44:00 75.00 /min Desiree en F Lukas Respiratory Rate 2024-01-16 09:44:00 18.00 /min Serafin F Lukas BP Systolic 2023-10-05 11:27:00 195 mm[Hg] Step hen F Lukas BP Diastolic 2023-10-05 11:27:00 82 mm[Hg] Juve phen F Lukas Weight Measured 2023-10-05 11:27:00 176.00 pounds Serafin F Lukas Height Measured 2023-10-05 11:27:00 59.84 inches Serafin F Lukas Body Temperature 2023-10-05 11:27:00 98.20 degrees Serafin F Lukas Heart Rate 2023-10-05 11:27:00 76.00 /min Desiree en F Lukas Respiratory Rate 2023-10-05 11:27:00 Serafin F Lukas BP Systolic 2023-07-13 15:14:00 149 mm[Hg] Step hen F Lukas BP Diastolic 2023-07-13 15:14:00 79 mm[Hg] Juve phen F Lukas Weight Measured 2023-07-13 15:14:00 172.00 pounds Serafin F Lukas Height Measured 2023-07-13 15:14:00 59.84 inches Serafin F Lukas Body Temperature 2023-07-13 15:14:00 98.20 degrees Serafin F Lukas Heart Rate 2023-07-13 15:14:00 79.00 /min Desiree en F Lukas Respiratory Rate 2023-07-13 15:14:00 19.00 /min Serafin F Lukas BP Systolic 2023-07-13 14:03:00 149 mm[Hg] Step hen F Lukas BP Diastolic 2023-07-13 14:03:00 79 mm[Hg] Juve phen F Lukas Weight Measured 2023-07-13 14:03:00 172.00 pounds Serafin F Lukas Height Measured 2023-07-13 14:03:00 59.84 inches Serafin F Lukas Body Temperature 2023-07-13 14:03:00 98.20 degrees Serafin F Lukas Heart Rate 2023-07-13 14:03:00 79.00 /min Desiree en F Lukas Respiratory Rate 2023-07-13 14:03:00 19.00 /min Serafin F Lukas BP Systolic 2023-07-10 17:32:00 151 mm[Hg] Step hen F Lukas BP Diastolic 2023-07-10 17:32:00 77 mm[Hg] Juve phen F Lukas Weight Measured 2023-07-10 17:32:00 172.20 pounds Serafin F Lukas Height Measured 2023-07-10 17:32:00 59.84 inches Serafin F Lukas Body Temperature 2023-07-10 17:32:00 98.20 degrees Serafin F Lukas Heart Rate 2023-07-10 17:32:00 82.00 /min Desiree en F Lukas Respiratory Rate 2023-07-10 17:32:00 18.00 /min Serafin F Lukas BP Systolic 2023-07-02 08:13:00 132 mm[Hg] Step hen F Lukas BP Diastolic 2023-07-02 08:13:00 82 mm[Hg] Juve phen F Lukas Weight Measured 2023-07-02 08:13:00 169.00 pounds Serafin F Lukas Height Measured 2023-07-02 08:13:00 59.84 inches Serafin F Lukas Body Temperature 2023-07-02 08:13:00 98.30 degrees Serafin F Lukas Heart Rate 2023-07-02 08:13:00 79.00 /min Desiree en F Lukas Respiratory Rate 2023-07-02 08:13:00 17.00 /min Serafin F Lukas BP Systolic 2022-08-08 15:44:00 162 mm[Hg] Step hen F Lukas BP Diastolic 2022-08-08 15:44:00 94 mm[Hg] Juve phen F Lukas Weight Measured 2022-08-08 15:44:00 157.00 pounds Serafin F Lukas Height Measured 2022-08-08 15:44:00 59.84 inches Serafin F Lukas Body Temperature 2022-08-08 15:44:00 98.20 degrees Serafin F Lukas Heart Rate 2022-08-08 15:44:00 97.00 /min Desiree en F Lukas Respiratory Rate 2022-08-08 15:44:00 19.00 /min Serafin F Lukas BP Systolic 2021-08-18 11:53:00 122 mm[Hg] Step hen F Lukas BP Diastolic 2021-08-18 11:53:00 74 mm[Hg] Juve phen F Lukas Weight Measured 2021-08-18 11:53:00 162.00 pounds Serafin F Lukas Height Measured 2021-08-18 11:53:00 59.84 inches Serafin F Lukas Body Temperature 2021-08-18 11:53:00 98.40 degrees Serafin F Lukas Heart Rate 2021-08-18 11:53:00 106.00 /min Step hen F Lukas Respiratory Rate 2021-08-18 11:53:00 Serafin F Lukas BP Systolic 2021-08-11 11:45:00 143 mm[Hg] Step hen F Lukas BP Diastolic 2021-08-11 11:45:00 79 mm[Hg] Juve phen F Lukas Weight Measured 2021-08-11 11:45:00 163.20 pounds Serafin F Lukas Height Measured 2021-08-11 11:45:00 59.84 inches Serafin Gaytan Body Temperature 2021-08-11 11:45:00 98.60 degrees Serafin Gaytan Heart Rate 2021-08-11 11:45:00 87.00 /min Desiree en F Lukas Respiratory Rate 2021-08-11 11:45:00 21.00 /min Serafin F Lukas BP Systolic 2021-03-31 17:05:00 189 mm[Hg] Step hen F Lukas BP Diastolic 2021-03-31 17:05:00 78 mm[Hg] Juve phen F Lukas Weight Measured 2021-03-31 17:05:00 180.80 pounds Serafin Gaytan Height Measured 2021-03-31 17:05:00 59.84 inches Serafin Gaytan Body Temperature 2021-03-31 17:05:00 97.90 degrees Serafin Gaytan Heart Rate 2021-03-31 17:05:00 101.00 /min Step hen F Lukas Respiratory Rate 2021-03-31 17:05:00 Serafin Gaytan Heart Rate 2019-03-25 20:31:00 [facility] Respitory Rate 2019-03-25 20:31:00 M [facility] Height 2019-03-25 20:31:00 147.32 cm [facility] Weight 2019-03-25 20:31:00 [facility] BMI Calculated 2019-03-25 20:31:00 M [facility] Systolic (mm Hg) 2019-03-25 20:31:00 [facility] Diastolic (mm Hg) 2019-03-25 20:31:00 [facility] Procedures Procedure Date / Time Performed Performing Clinician Source CAROTID DUPLEX BILATERAL - BY VASCULAR LAB 2024-05-13 14:28:03 Keny Pierce [facility] HB ECG ROUTINE & RHYTHM STRIP 2024-04-07 18:48:18 Keny Pierce [facility] 23074 Ekg W/ At Least 12 Leads W/ I r 2024-03-10 00:00:00 Serafin Gaytan REFERRAL- REQUEST/RESPONSE 2023-03-30 05:01:00 D octor Unassigned, [place] [facility] POCT GLUCOSE (AUTOMATED) 2023-03-20 16:16:00 Kayla edithAbiodun avilaphong [facility] POCT GLUCOSE (AUTOMATED) 2023-03-20 16:16:00 Kayla edith, [place] [facility] POCT GLUCOSE (AUTOMATED) 2023-03-20 12:27:00 Kayla edithAbiodun avilaphong [facility] POCT GLUCOSE (AUTOMATED) 2023-03-20 12:27:00 Parish [facility] GLYCOSYLATED HEMOGLOBIN (A1C) 2023-03-20 10:29:00 Nick Schrader [facility] GLYCOSYLATED HEMOGLOBIN (A1C) 2023-03-20 10:29:00 Nick Schrader Brittany [facility] HEPATIC FUNCTION PANEL ([id number]) (ALB,T.PRO,BILI T,BU/BC,ALT,AST,ALK PHOS) 2023-03-20 10:28:[address] [facility] BASIC METABOLIC PANEL (NA, K, CL, CO2, GLUCOSE, BUN, CREATININE, CA) 2023-03-20 10:28:[address] [facility] CBC WITH DIFF 2023-03-20 10:28:00 Clifford [facility] HEPATIC FUNCTION PANEL ([id number]) (ALB,T.PRO,BILI T,BU/BC,ALT,AST,ALK PHOS) 2023-03-20 10:28:[address] [facility] BASIC METABOLIC PANEL (NA, K, CL, CO2, GLUCOSE, BUN, CREATININE, CA) 2023-03-20 10:28:[address] [facility] CBC WITH DIFF 2023-03-20 10:28:00 Clifford [facility] POCT GLUCOSE (AUTOMATED) 2023-03-20 10:16:00 Parish [facility] POCT GLUCOSE (AUTOMATED) 2023-03-20 10:16:00 Parish [facility] POCT GLUCOSE (AUTOMATED) 2023-03-20 06:36:00 Parish [facility] POCT GLUCOSE (AUTOMATED) 2023-03-20 06:36:00 Parish [facility] POCT GLUCOSE (AUTOMATED) 2023-03-20 02:11:00 Parish [facility] POCT GLUCOSE (AUTOMATED) 2023-03-20 02:11:00 Parish [facility] POCT GLUCOSE (AUTOMATED) 2023-03-19 23:05:00 Parish [facility] POCT GLUCOSE (AUTOMATED) 2023-03-19 23:05:00 Parish [facility] POCT GLUCOSE (AUTOMATED) 2023-03-19 20:53:00 Parish [facility] POCT GLUCOSE (AUTOMATED) 2023-03-19 20:53:00 Parish [facility] POCT GLUCOSE (AUTOMATED) 2023-03-19 17:01:00 Parish Cruz [facility] POCT GLUCOSE (AUTOMATED) 2023-03-19 17:01:00 Parish Cruz Mabel [facility] FL TIME OR (NON-REPORTABLE) 2023-03-19 15:39:20 Clifford Raquel [facility] FL TIME OR (NON-REPORTABLE) 2023-03-19 15:39:20 Raquel Horton [facility] INTUBATION 2023-03-19 13:37:00 Selvin Amin [facility] CHOLECYSTECTOMY LAPAROSCOPY WITH CHOLANGIOGRAM 2023-03-19 13:01[facility]00 [facility] CHOLANGIOGRAM 2023-03-19 13:01:00 [facility] POCT GLUCOSE (AUTOMATED) 2023-03-19 12:29:00 Parish Cruz Mabel [facility] POCT GLUCOSE (AUTOMATED) 2023-03-19 12:29:00 Parish Cruz Mabel [facility] HEPATIC FUNCTION PANEL ([id number]) (ALB,T.PRO,BILI T,BU/BC,ALT,AST,ALK PHOS) 2023-03-19 09:57:00 [facility] BASIC METABOLIC PANEL (NA, K, CL, CO2, GLUCOSE, BUN, CREATININE, CA) 2023-03-19 09:57:00 [facility] CBC WITH DIFF 2023-03-19 09:57:00 [facility] HEPATIC FUNCTION PANEL ([id number]) (ALB,T.PRO,BILI T,BU/BC,ALT,AST,ALK PHOS) 2023-03-19 09:57:00 [facility] BASIC METABOLIC PANEL (NA, K, CL, CO2, GLUCOSE, BUN, CREATININE, CA) 2023-03-19 09:57:00 [facility] CBC WITH DIFF 2023-03-19 09:57:00 [facility] POCT GLUCOSE (AUTOMATED) 2023-03-19 09:36:00 Parish Cruz [facility] POCT GLUCOSE (AUTOMATED) 2023-03-19 09:36:00 Parish Cruz M[facility] POCT GLUCOSE (AUTOMATED) 2023-03-19 05:12:00 Parish Cruz Mabel [facility] POCT GLUCOSE (AUTOMATED) 2023-03-19 05:12:00 Parish Cruz Mabel [facility] POCT GLUCOSE (AUTOMATED) 2023-03-19 01:09:00 Parish Cruz [facility] POCT GLUCOSE (AUTOMATED) 2023-03-19 01:09:00 Parish Cruz [facility] POCT GLUCOSE (AUTOMATED) 2023-03-18 21:21:00 Parish Cruz [facility] POCT GLUCOSE (AUTOMATED) 2023-03-18 21:21:00 Parish Cruz Mabel [facility] HEPATIC FUNCTION PANEL ([id number]) (ALB,T.PRO,BILI T,BU/BC,ALT,AST,ALK PHOS) 2023-03-18 17:51:00 Raquel Horton [facility] MRSA / MSSA SCREEN BY KARLA CARY 2023-03-18 17:51:00 [facility] HE[facility] FUN[facility] ([id number]) (ALB,T.PRO,BILI T,BU/BC,ALT,AST,ALK PHOS) 2023-03-18 17:51:00 Raquel Horton [facility] MRSA / MSSA SCREEN BY PCRKARLA 2023-03-18 17:51:00 Francheska [facility] POCT GLUCOSE (AUTOMATED) 2023-03-18 16:53:00 Parish Cruz Mabel [facility] POCT GLUCOSE (AUTOMATED) 2023-03-18 16:53:00 Kayla edith, Parish M[facility] US GALL BLADDER 2023-03-18 08:32:32 [facility] RAP[facility]FLU[facility] A/B 2023-03-18 06:44:00 Lelia Hammond [facility] COVID-19 (ID NOW RAPID TESTING) 2023-03-18 06:44:00 Lelia Hammond [facility] LIPASE 2023-03-18 06:37:00 Lelia Hammond [facility] MAGNESIUM 2023-03-18 06:37:00 Lelia Hammond [facility] TROPONIN I 2023-03-18 06:37:00 [facility] COMP. METABOLIC PANEL (35566) 2023-03-18 06:37:00 Lelia [facility] CBC WITH DIFF 2023-03-18 06:37:00 [facility] 2023-03-18 06:37:00 [facility] BILI UNCONJUGATED/BILI CONJUG 2023-03-18 06:37:00 Raquel Horton [facility] BILI UNCONJUGATED/BILI CONJUG 2023-03-18 06:37:00 Raquel Horton [facility] NOTICE OF PRIVACY PRACTICES 2023-03-18 05:44:50 Doctor Unassigned, [place] [facility] CONSENT/REFUSAL FOR DIAGNOSIS AND TREATMENT 2023-03-18 05:42:55 Doctor Unassigned, [place] [facility] HB ECG ROUTINE & RHYTHM STRIP 2022-12-11 20:27:51 Keny Pierce [facility] MEDICAL RELEASE/CLEARANCE FORMS 2022-12-11 05:01:00 Doctor Unassigned, [place] [facility] POCT GLUCOSE (AUTOMATED) 2022-12-03 16:18:00 Joaquín Samuels [facility] POCT GLUCOSE (AUTOMATED) 2022-12-03 12:56:00 Abril Joaquín [facility] BASIC METABOLIC PANEL (NA, K, CL, CO2, GLUCOSE, BUN, CREATININE, CA) 2022-12-03 09:13:00 Jagruti Booker [facility] CBC WITH DIFF 2022-12-03 09:13:00 Jagruti Booker [facility] POCT GLUCOSE (AUTOMATED) 2022-12-03 02:04:00 Abril [facility] POCT GLUCOSE (AUTOMATED) 2022-12-02 21:23:00 Abril [facility] TRANSTHORACIC ECHO (TTE) COMPLETE 2022-12-02 20:24:03 Jagruti Booker [facility] POCT GLUCOSE (AUTOMATED) 2022-12-02 16:38:00 Abril [facility] POCT GLUCOSE (AUTOMATED) 2022-12-02 12:34:00 Abril [facility] BASIC METABOLIC PANEL (NA, K, CL, CO2, GLUCOSE, BUN, CREATININE, CA) 2022-12-02 11:39:00 Robert Rosado [facility] LIPID PANEL (83448)(TOTAL CHOLESTEROL, TRIGLYCERIDES, HDL) 2022-12-02 11:39:00 Paulo Corbett [facility] CBC WITH DIFF 2022-12-02 11:39:00 Robert Rosado [facility] XR CHEST 1 VW 2022-12-02 03:59:13 Joaquín Samuels [facility] TROPONIN I 2022-12-02 03:43:00 Joaquín Samuels [facility] COMP. METABOLIC PANEL (56993) 2022-12-02 03:43:00 Joaquín Samuels [facility] CBC WITH DIFF 2022-12-02 03:43:00 Joaquín Samuels [facility] N-TERMINAL PRO-BNP 2022-12-02 03:43:00 Trenton Samuels [facility] NOTICE OF PRIVACY PRACTICES 2022-12-02 02:57:38 Doctor Unassigned, [place] [facility] CONSENT/REFUSAL FOR DIAGNOSIS AND TREATMENT 2022-12-02 02:56:34 Doctor Unassigned, [place] [facility] REFERRAL- REQUEST/RESPONSE 2022-11-03 05:01:00 Blanca cowan Unassigned, [place] [facility] COMP. METABOLIC PANEL (51118) 2022-11-02 14:15:00 Carisa Lizarraga [facility] CBC WITH DIFF 2022-11-02 14:15:00 Carisa Lizarraga [facility] [address] Removal Impacted Cerumen Using Irrigation/lavage, Unilateral 2022-08-08 00:00:[address] CHEST PULMONARY ANGIOGRAM 2021-08-17 10:41:03 Jason Cantu [facility] LIPASE 2021-08-17 08:51:00 Jason Cantu [facility] TROPONIN I 2021-08-17 08:51:00 Jason Cantu [facility] COMP. METABOLIC PANEL (76374) 2021-08-17 08:51:00 Jason Cantu [facility] CBC WITH DIFF 2021-08-17 08:51:00 Jason Cantu [facility] COVID-19 (ID NOW RAPID TESTING) 2021-08-17 08:51:00 Jason Cantu [facility] NOTICE OF PRIVACY PRACTICES 2021-08-17 08:08:15 Doctor Unassigned, [place] [facility] CONSENT/REFUSAL FOR DIAGNOSIS AND TREATMENT 2021-08-17 08:02:31 Doctor Unassigned, [place] [facility] AUTHORIZATION FOR RELEASE OF PHI 2021-08-16 06:01:00 Doctor Unassigned, [place] [facility] EXTERNAL PROVIDER RECORDS 2021-08-12 06:01:00 Do ctor Unassigned, [place] [facility] BASIC METABOLIC PANEL (NA, K, CL, CO2, GLUCOSE, BUN, CREATININE, CA) 2021-07-29 20:49[facility] 2021-07-29 19:37:00 Abdi phillips [facility] POCT GLUCOSE (AUTOMATED) 2021-07-29 18:11:00 Abdi alan [facility] POCT GLUCOSE (AUTOMATED) 2021-07-29 16:00:00 Abdi phillips [facility] POCT GLUCOSE (AUTOMATED) 2021-07-29 14:21:00 Soniya Pozo [facility] MAGNESIUM 2021-07-29 14:13:00 Alma [facility] BASIC METABOLIC PANEL (NA, K, CL, CO2, GLUCOSE, BUN, CREATININE, CA) 2021-07-29 14:13:00 Alma [facility] POCT GLUCOSE (AUTOMATED) 2021-07-29 14:07:00 Abdi phillips [facility] POCT GLUCOSE (AUTOMATED) 2021-07-29 01:15:00 Soniya Pozo [facility] POCT GLUCOSE (AUTOMATED) 2021-07-28 23:22:00 Abdi phillips [facility] CAROTID DUPLEX BILATERAL - BY VASCULAR LAB 2021-07-28 21:03:18 Clarence Silva [facility] POCT GLUCOSE (AUTOMATED) 2021-07-28 18:50:00 Abdi phillips [facility] POCT GLUCOSE (AUTOMATED) 2021-07-28 17:36:00 Abdi phillips [facility] POCT GLUCOSE (AUTOMATED) 2021-07-28 16:52:00 Abdi Soniya phillips [facility] POCT GLUCOSE (AUTOMATED) 2021-07-28 14:37:00 Soniya Pozo [facility] MAGNESIUM 2021-07-28 11:27:00 Alma [facility] BASIC METABOLIC PANEL (NA, K, CL, CO2, GLUCOSE, BUN, CREATININE, CA) 2021-07-28 11:27:00 Alma [facility] CBC WITH DIFF 2021-07-28 11:27:00 Alma [facility] POCT GLUCOSE (AUTOMATED) 2021-07-28 00:37:00 Abdi phillips [facility] MR BRAIN W WO CONTRAST 2021-07-27 21:39:37 Ricardo [facility] MR ORBIT W WO CONTRAST 2021-07-27 21:37:21 Ricardo [facility] POCT GLUCOSE (AUTOMATED) 2021-07-27 17:58:00 Abdi phillips [facility] TRANSTHORACIC ECHO (TTE) COMPLETE W/ CONTRAST 2021-07-27 16:30:00 [facility] ([facility]) 2021-07-27 14:29:00 Abdi phillips [facility] TROPONIN I 2021-07-27 11:23:00 Jolynn Marquez [facility] HEPATIC FUNCTION PANEL (12855) (ALB,T.PRO,BILI T,BU/BC,ALT,AST,ALK PHOS) 2021-07-27 11:23:00 Clarence Silva [facility] BASIC METABOLIC PANEL (NA, K, CL, CO2, GLUCOSE, BUN, CREATININE, CA) 2021-07-27 11:23:00 [facility] WITH DIFF 2021-07-27 11:23:00 Clarence Silva [facility] POCT GLUCOSE (AUTOMATED) 2021-07-27 05:21:00 Soniya Pozo [facility] US ABDOMEN LIMITED 2021-07-27 02:53:00 Clarence Silva [facility] URINE DRUG (IMMUNOASSAY) - COMPREHENSIVE DRUG SCREEN 2021-07-27 01:45:00 Clarence Silva [facility] PNEUMOCOCCAL ANTIGEN 2021-07-27 01:45:00 [facility] BLOOD [facility] S[facility]EN 2021-07-27 01:44:00 [facility] LACTATE DEHYDROGENASE 2021-07-27 01:44:00 [facility] TROPONIN I 2021-07-27 01:44:00 [facility] PROTHROMBIN TIME / INR 2021-07-27 01:44:00 [facility] D-DIMER 2021-07-27 01:44:00 [facility] THRMPLAS DANIEL 2021-07-27 01:44:00 [facility] EXTRA TUBE LAV 2021-07-27 01:44:[address] [facility] PROCALCITONIN 2021-07-27 01:44:00 Clarence Silva [facility] XR CHEST 1 VW 2021-07-27 01:15:25 Clarence Silva [facility] CT HEAD WO CONTRAST 2021-07-27 00:18:19 Clarence Silva [facility] COVID-19 (ID NOW RAPID TESTING) 2021-07-26 21:03:00 Leslie Larikn [facility] LAB ONLY COVID INTERPRETATION 2021-07-26 21:03:00 Leslie Larkin [facility] URINALYSIS 2021-07-26 19:11:00 Leslie Larkin U [facility] LEGIONELLA URINARY ANTIGEN TST 2021-07-26 19:11:00 Clarence Silva [facility] URINE CULTURE 2021-07-26 19:11:00 Leslie Larkin [facility] LIPASE 2021-07-26 19:00:00 Leslie Larkin U [facility] MAGNESIUM 2021-07-26 19:00:00 [facility] FERRITIN SERUM 2021-07-26 19:00:00 [facility] B12, LEVEL 2021-07-26 19:00:00 [facility] PROTEIN 2021-07-26 19:00:00 Clarence Silva [facility] TROPONIN I 2021-07-26 19:00:00 Leslie Larkin [facility] FREE T4 2021-07-26 19:00:00 Leslie Larkin [facility] THYROID STIMULATING HORMONE 2021-07-26 19:00:00 Leslie Larkin [facility] COMP. METABOLIC PANEL (89456) 2021-07-26 19:00:00 Leslie Larkin [facility] LIPID PANEL (16071)(TOTAL CHOLESTEROL, TRIGLYCERIDES, HDL) 2021-07-26 19:00:00 Clarence Silva [facility] ETHANOL 2021-07-26 19:00:00 [facility] CBC WITH DIFF 2021-07-26 19:00:00 Leslie Larkin [facility] GLYCOSYLATED HEMOGLOBIN (A1C) 2021-07-26 19:00:00 Leslie Larkin [facility] N-TERMINAL PRO-BNP 2021-07-26 19:00:00 Gopi Larkin [facility] FREE T3 2021-07-26 19:00:00 Leslie Larkin [facility] CONSENT/REFUSAL FOR DIAGNOSIS AND TREATMENT 2021-07-26 17:46:46 Doctor Unassigned, [place] [facility] BI SCREENING TOMOSYNTHESIS BILATERAL 2021-07-01 15:02:00 Carisa Lizarraga [facility] NOTICE OF PRIVACY PRACTICES 2021-07-01 14:37:14 Doctor Unassigned, [place] [facility] CONSENT/REFUSAL FOR DIAGNOSIS AND TREATMENT 2021-07-01 14:36:59 Doctor Unassigned, [place] [facility] ASSIGNMENT OF BENEFITS 2021-07-01 14:36:43 Docto r Unassigned, [place] [facility] Appendectomy [facility] Family Practice Encounters Start Date/Time End Date/Time Encounter Type Admission Type Attending Clinicians Care Facility Care Department Encounter ID Source 2023-03-18 05:03:32 Emergency X SAVANAH RUIZ [facility] KAREN [id number] [facility] 2021-05-27 20:25:41 Emergency [facility] [id number] [facility] 2024-10-09 09:14:32 2024-10-09 09:14:32 Outpatient SFA [facility] [id number] Serafin Gaytan 2024-10-09 00:00:00 2024-10-09 00:00:00 Outpatient Visit [facility] [id number] Serafin Gaytan 2024-09-03 00:00:00 2024-09-03 09:07:50 [facility] ..840.114 350.1.13.10 4.2.7.2.686 [id number] [facility] 2024-08-25 00:00:00 2024-08-25 18:25:22 Letter (Out) Katherine Martínez [facility] (NAYELY) 1..840.114 350.1.13.10 4.2.7.2.686 [id number] [facility] 2024-08-25 00:00:00 2024-08-25 10:48:11 [facility] .2.840.114 350.1.13.10 4.2.7.2.686 [id number] [facility] 2024-08-21 00:00:00 2024-08-22 12:34:50 [facility] .2.840.114 350.1.13.10 4.2.7.2.686 [id number] [facility] 2024-08-11 09:16:00 2024-08-11 09:16:00 Outpatient [facility] [id number] Serafin Gaytan 2024-08-08 13:26:22 2024-08-08 13:26:22 Outpatient SFA [facility] 0 Serafin Gaytan 2024-08-07 00:00:00 2024-08-07 00:00:00 Outpatient Visit [facility] [id number] Serafin Gaytan 2024-05-13 00:00:00 2024-06-14 18:19:58 Patient Secure [facility] 1..840.114 350.1.13.10 4.2.7.2.686 [id number] [facility] 2024-06-12 13:30:00 2024-06-12 13:30:00 Outpatient R CARISA LIZARRAGA [facility] [id number] [facility] 2024-06-09 10:00:00 2024-06-09 10:00:00 Outpatient R [facility] [id number] [facility] 2024-05-13 08:49:07 2024-05-13 23:59:00 Outpatient R KENY PIERCE [facility] [id number] [facility] 2024-05-13 08:49:07 2024-05-13 23:59:00 [facility] 1..840.114 350.1.13.10 4.2.7.2.686 [id number] [facility] 2024-05-02 10:45:00 2024-05-02 10:45:00 Outpatient R CORINA BERUMEN [facility] [id number] [facility] 2024-05-01 09:30:00 2024-05-01 09:30:00 Outpatient R CARISA LIZARRAGA [facility] [id number] [facility] 2024-04-27 00:00:00 2024-04-28 12:34:31 Refill Carisa Lizarraga [facility] JOSEPH?[facility] 1.2.840.114 350.1.13.10 4.2.7.2.686 [id number] [facility] 2024-04-23 00:00:00 2024-04-23 09:17:04 [facility] 1..840.114 350.1.13.10 4.2.7.2.686 [id number] [facility] 2024-04-15 08:51:18 2024-04-15 08:51:18 Outpatient SFA [facility] [id number] Serfain Gaytan 2024-04-15 00:00:00 2024-04-15 00:00:00 Outpatient Visit SFA [id number] Serafin Gaytan 2024-04-11 00:00:00 2024-04-11 15:40:36 [facility] 1.2.840.114 350.1.13.10 4.2.7.2.686 [id number] [facility] 2024-04-07 14:00:00 2024-04-07 14:07:42 Outpatient R KENY PIERCE [facility] [id number] [facility] 2024-04-07 14:00:00 2024-04-07 14:07:42 [facility] 1.2.840.114 350.1.13.10 4.2.7.2.686 [id number] [facility] 2024-03-24 09:23:23 2024-03-24 09:23:23 Outpatient SFA [facility] [id number] Serafin Gaytan 2024-03-24 00:00:00 2024-03-24 00:00:00 Outpatient Visit SFA [id number] Serafin Gaytan 2024-03-10 10:12:12 2024-03-10 10:12:12 Outpatient SFA [facility] [id number] Serafin Gaytan 2024-03-10 00:00:00 2024-03-10 00:00:00 Outpatient Visit SFA [id number] Serafin Gaytan 2024-01-16 09:38:01 2024-01-16 09:38:01 Outpatient SFA [facility] [id number] Serafin Gaytan 2024-01-16 00:00:00 2024-01-16 00:00:00 Outpatient Visit SFA [id number] Serafin Gaytan 2023-11-22 00:00:00 2023-11-22 00:00:00 Carisa Carter [facility] OFF[facility] BUILDING 1.2.840.114 350.1.13.10 4.2.7.2.686 [id number] [facility] 2023-11-02 09:00:00 2023-11-02 09:00:00 Outpatient KENY CALLEJAS [facility] [id number] [facility] 2023-10-05 11:26:16 2023-10-05 11:26:16 Outpatient SFA [facility] [id number] Serafin Gaytan 2023-09-04 08:16:14 2023-09-04 08:16:14 Outpatient SFA [facility] [id number] Serafin Gaytan 2023-08-30 16:28:03 2023-08-30 16:28:03 Outpatient SFA [facility] [id number] Serafin Gaytan 2023-08-18 00:00:00 2023-08-18 00:00:00 [facility] OFF[facility] BUILD[facility] 1.2.840.114 350.1.13.10 4.2.7.2.686 [id number] [facility] 2023-07-24 00:00:00 2023-07-24 00:00:00 RefCarisa Kruger [facility] JOSEPH?[facility] MEDICAL OFFICE BUILDING 1.2.840.114 350.1.13.10 4.2.7.2.686 [id number] [facility] 2023-07-24 00:00:00 2023-07-24 00:00:00 [facility] MED[facility] OFF[facility] BUILDING 1.2.840.114 350.1.13.10 4.2.7.2.686 [id number] [facility] 2023-07-13 13:57:32 2023-07-13 13:57:32 Outpatient SFA [facility] [id number] Serafin Gaytan 2023-07-10 17:27:30 2023-07-10 17:27:30 Outpatient SFA S[facility] [id number] Serafin Gaytan 2023-07-02 08:02:36 2023-07-02 08:02:36 Outpatient SFA [facility] [id number] Serafin Gaytan 2023-05-22 11:30:00 2023-05-22 11:30:00 Outpatient CARISA KELLER [facility] [id number] [facility] 2023-05-15 14:20:00 2023-05-15 14:20:00 Outpatient KENY CALLEJAS [facility] [id number] [facility] 2023-05-04 11:00:00 2023-05-04 11:00:00 Outpatient CARISA KELLER [facility] [id number] [facility] 2023-04-24 16:30:00 2023-04-24 16:30:00 Outpatient CARISA KELLER [facility] [id number] [facility] 2023-04-12 09:30:00 2023-04-12 09:30:00 Outpatient CARISA KELLER [facility] [id number] [facility] 2023-04-04 00:00:00 2023-04-04 00:00:00 Telephone [facility] 1..840.114 350.1.13.10 4.2.7.2.686 [id number] [facility] 2023-03-30 00:00:00 2023-03-30 00:00:00 Orders Only Doctor Unassigned, [place] [facility] 1.840.114 350.1.13.10 4.2.7.2.686 [id number] [facility] 2023-03-27 11:00:00 2023-03-27 11:22:14 Outpatient CARISA KELLER [facility] [id number] [facility] 2023-03-27 11:00:00 2023-03-27 11:22:14 [facility] 1.2840.114 350.1.13.10 4.2.7.2.686 [id number] [facility] 2023-03-22 00:00:00 2023-03-22 00:00:00 [facility] MED[facility] OFF[facility] BUILD[facility] 1..840.114 350.1.13.10 4.2.7.2.686 [id number] [facility] 2023-03-21 00:00:00 2023-03-21 00:00:00 Telephone Eliane Rene 1.2.840.114 350.1.13.10 4.2.7.2.686 [id number] [facility] 2023-03-18 08:05:00 2023-03-20 14:00:00 Outpatient X [facility] BENITE[facility] KAREN [id number] [facility] 2023-03-18 08:05:00 2023-03-20 14:00:00 Emergency Savanah Ruiz Sara Michelle [facility] 1.2.840.114 350.1.13.10 4.2.7.2.686 [id number] [facility] 2023-03-19 08:15:00 2023-03-19 10:30:00 Anesthesia Event Russell Padron Ronald S [facility] 1.2.840.114 350.1.13.10 4.2.7.2.686 [id number] [facility] 2023-03-19 07:40:00 2023-03-19 10:20:00 Surgery Person, Kolby [facility] 1.2.840.114 350.1.13.10 4.2.7.2.686 [id number] [facility] 2023-03-18 00:54:00 2023-03-18 06:52:00 Emergency X SAVANAH RUIZ [facility] ERT [id number] [facility] 2023-03-18 00:54:00 2023-03-18 06:52:00 Emergency Lelia Hammond [facility] 1.2.840.114 350.1.13.10 4.2.7.2.686 [id number] [facility] 2023-03-16 00:00:00 2023-03-16 00:00:00 [facility] 1.2840.114 350.1.13.10 4.2.7.2.686 [id number] [facility] 2023-03-15 13:45:00 2023-03-15 14:00:00 Board Certified Family Physician Visit 2, [facility] 1.2840.114 350.1.13.10 4.2.7.2.686 [id number] [facility] 2023-03-15 13:20:00 2023-03-15 13:20:09 Outpatient R [facility] [id number] [facility] 2023-03-15 13:20:00 2023-03-15 13:20:09 Office Visit Stan [facility] BUILDING 1.2840.114 350.1.13.10 4.2.7.2.686 [id number] [facility] 2023-03-08 00:00:00 2023-03-08 00:00:00 Outpatient Yazan_Sanna YU VFP VFP [id number] [facility] 2023-02-26 00:00:00 2023-02-26 00:00:00 Refill [facility] JOSEPH?[facility] MED[facility] OFF[facility] BUILD[facility] 1.2840.114 350.1.13.10 4.2.7.2.686 [id number] [facility] 2023-01-11 00:00:00 2023-01-11 00:00:00 [facility] 1.2840.114 350.1.13.10 4.2.7.2.686 [id number] [facility] 2023-01-08 14:40:00 2023-01-08 14:40:00 [facility] [id number] [facility] 2023-01-04 00:00:00 2023-01-04 00:00:00 Outpatient R CARISA LIZARRAGA [facility] [id number] [facility] 2022-12-19 00:00:00 2022-12-19 00:00:00 Krys Hand MD: [id number] , [address], [place] [address] , Ph. [facility]_NEHA_[facility] Brisa [id number] [facility] 2022-12-14 00:00:00 2022-12-14 00:00:00 Telephone Carisa Lizarraga [facility] OFFICE BUILDING 1..840.114 350.1.13.10 4.2.7.2.686 [id number] [facility] 2022-12-11 15:40:00 2022-12-11 15:51:27 Outpatient [facility] [id number] [facility] 2022-12-11 15:40:00 2022-12-11 15:51:27 [facility] 1..840.114 350.1.13.10 4.2.7.2.686 [id number] [facility] 2022-12-11 00:00:00 2022-12-11 00:00:00 Orders Only Doctor Unassigned, [place] [facility] 1..840.114 350.1.13.10 4.2.7.2.686 [id number] [facility] 2022-12-07 08:30:00 2022-12-07 09:14:14 Office Visit Anene, [facility] 1.2.840.114 350.1.13.10 4.2.7.2.686 [id number] [facility] 2022-12-07 08:30:00 2022-12-07 09:14:14 Outpatient R [facility]AM [facility] [id number] [facility] 2022-12-06 00:00:00 2022-12-06 00:00:00 Telephone Elham [facility] 1..840.114 350.1.13.10 4.2.7.2.686 [id number] [facility] 2022-12-05 00:00:00 2022-12-05 00:00:00 Transition of Care Jayde Monroe 1..840.114 350.1.13.10 4.2.7.2.686 [id number] [facility] 2022-12-01 22:21:00 2022-12-03 15:46:00 Inpatient U [facility] [id number] [facility] 2022-12-01 22:21:00 2022-12-03 15:46:00 Hospital Encounter Joaquín Samuels, Jagruti Rosado [facility] ([facility] 1..840.114 350.1.13.10 4.2.7.2.686 [id number] [facility] 2022-11-30 00:00:00 2022-11-30 00:00:00 Outpatient Prakash_S VFP VFP [id number] [facility] e 2022-11-30 00:00:00 2022-11-30 00:00:00 Outpatient Prakash_S VFP VFP [id number] [facility] 2022-11-30 00:00:00 2022-11-30 00:00:00 [facility] 1.2.840.114 350.1.13.10 4.2.7.2.686 [id number] [facility] 2022-11-03 00:00:00 2022-11-03 00:00:00 Orders Only Doctor Unassigned, [place] [facility] 1.2.840.114 350.1.13.10 4.2.7.2.686 [id number] [facility] 2022-11-02 09:45:00 2022-11-02 10:00:00 Board Certified Family Physician Visit Lab, Erlin Conklin [facility] 1.2.840.114 350.1.13.10 4.2.7.2.686 [id number] [facility] 2022-11-02 08:00:00 2022-11-02 09:03:49 Outpatient R [facility] [id number] [facility] 2022-11-02 08:00:00 2022-11-02 09:03:49 [facility] MEDICAL OFFICE BUILDING 1.2.840.114 350.1.13.10 4.2.7.2.686 [id number] [facility] 2022-08-08 15:49:16 2022-08-08 15:49:16 Outpatient [facility] [id number] Serafin Gaytan 2022-06-06 14:40:00 2022-06-06 14:40:00 Outpatient R KENY PIERCE [facility] [id number] [facility] 2021-08-17 02:20:00 2021-08-17 06:03:00 Emergency X JASON CANTU [facility] ERT [id number] [facility] 2021-08-17 02:20:00 2021-08-17 06:03:00 Emergency Jason Cantu [facility] 1.2.840.114 350.1.13.10 4.2.7.2.686 [id number] [facility] 2021-08-16 00:00:00 2021-08-16 00:00:00 Orders Only Doctor Unassigned, [place] [facility] 1.2.840.114 350.1.13.10 4.2.7.2.686 [id number] [facility] 2021-08-13 09:33:00 2021-08-13 13:48:00 Emergency X DAVIDMARGOT HO [facility] ERT [id number] [facility] 2021-08-13 09:33:00 2021-08-13 13:48:00 Emergency Margot Mc [facility] 1.2.840.114 350.1.13.10 4.2.7.2.686 [id number] [facility] 2021-08-12 00:00:00 2021-08-12 00:00:00 Orders Only Doctor Unassigned, [place] [facility] 1.2.840.114 350.1.13.10 4.2.7.2.686 [id number] [facility] 2021-07-26 11:48:00 2021-07-29 18:19:[address] [facility] [place] [id number] [facility] 2021-07-26 11:48:00 2021-07-29 18:19:00 Hospital Encounter Leslie Larkin Sarah Batool [facility] 1.2.840.114 350.1.13.10 4.2.7.2.686 [id number] [facility] 2021-07-28 10:30:00 2021-07-28 10:30:00 Outpatient R CARISA LIZARRAGA [facility] [id number] [facility] 2021-07-14 11:00:00 2021-07-14 11:00:00 Outpatient R CARISA LIZARRAGA [facility] [id number] [facility] 2021-07-01 08:39:06 2021-07-01 23:59:00 Outpatient R CARISA LIZARRAGA [facility] [id number] [facility] 2021-07-01 08:39:06 2021-07-01 23:59:00 Hospital Encounter Carisa Lizarraga [facility] 1.2.840.114 350.1.13.10 4.2.7.2.686 [id number] [facility] 2021-07-01 00:00:00 2021-07-01 00:00:00 Outpatient R CARISA LIZARRAGA [facility] [id number] [facility] 2021-06-15 00:00:00 2021-06-15 00:00:00 [facility] MED[facility] 1.2.840.114 350.1.13.10 4.2.7.2.686 [id number] [facility] 2021-06-09 11:00:00 2021-06-09 11:41:41 Outpatient R CARISA LIZARRAGA [facility] [id number] [facility] 2021-06-09 10:37:35 2021-06-09 11:41:41 [facility] MED[facility] 1.2.840.114 350.1.13.10 4.2.7.2.686 [id number] [facility] 2021-06-09 11:00:00 2021-06-09 11:00:00 Outpatient R CARISA LIZARRAGA [facility] [id number] [facility] 2021-06-09 00:00:00 2021-06-09 00:00:00 Orders Only Doctor Unassigned, [place] [facility] 1.2.840.114 350.1.13.10 4.2.7.2.686 [id number] [facility] 2021-06-05 09:49:00 2021-06-05 11:14:00 Emergency X SOUZAARIAABIGAIL [facility] ERT [id number] [facility] 2021-06-05 09:49:00 2021-06-05 11:14:00 Emergency Abigail Souza [facility] 1.2.840.114 350.1.13.10 4.2.7.2.686 [id number] [facility] 2021-06-05 00:00:00 2021-06-05 00:00:00 Orders Only Doctor Unassigned, [place] [facility] 1.2.840.114 350.1.13.10 4.2.7.2.686 [id number] [facility] 2021-04-05 00:00:00 2021-04-05 00:00:00 Orders Only Doctor Unassigned, [place] [facility] 1.2.840.114 350.1.13.10 4.2.7.2.686 [id number] [facility] 2020-04-29 08:26:00 2020-04-29 13:26:00 Emergency Alma Rosa [facility] 1.2.840.114 350.1.13.10 4.2.7.2.686 [id number] [facility] 2019-03-25 20:00:00 2019-03-26 04:59:59 Outpatient nullJackyo rosibel [facility] [place] [id number] Marissa Zambrano 2019-03-10 00:00:00 2019-03-10 00:00:00 Case Management Nivia Espinosa [facility] 1.840.114 350.1.13.10 4.2.7.2.686 [id number] [facility] 2019-02-13 00:00:00 2019-02-13 00:00:00 Orders Only Doctor Unassigned, [place] [facility] 1.2.840.114 350.1.13.10 4.2.7.2.686 [id number] [facility] Results Test Description Test Time Test Comments Results Result Co mments Source ALBUMIN/CREATININE RATIO, URINE, [id number] 05:22:59* Test Item Value Reference Range Interpretation Comme nts CREATININE, URINE, CONC. (test code = 2072) 26.5 MG/DL NOT ESTAB ALBUMIN, URINE, RANDOM (test code = 79341) 29.0 MG/DL NOT ESTAB CALC ALBUMIN/CREAT, RND (test code = 22847) 1094 MG/G <30 H Note: Albumin/Cr eatinine ratio reference interval reflects ADA and NKF guidelines. UNLESS OTHERWISE INDICATED, ALL TESTING PERFORMED AT [facility] [address] [place] [address] CHIEF ADMINISTRATIVE OFFICER: JOLYNN HUNT M.D. CLIA NUMBER [id number] [facility] [place] [place]. [id number] LIPID [id number] 03:22:37* Test Item Value Reference Range Interpretation Comme nts CHOLESTEROL (test code = 2210) 288 MG/DL <200 H TRIGLYCERIDES (test code = 2232) 304 MG/DL <150 H HDL CHOLESTEROL (test code = 2220) 53 MG/DL >39 CALC LDL CHOL (test code = 2237) 183 MG/DL <100 H NOTE: CALCULATED LDL IS BASED ON SULY-AHUJA METHOD WHICHINCLUDES ADJUSTABLE TRIGLYCERIDE:VLDL CHOLESTEROL RATIO.THIS FACTOR VARIES BY MEASURED TRIGLYCERIDE AND NON-HDLCHOLESTEROL CONCENTRATIONS WITH INCREASED CALCULATED LDL SEENIN HIGHER TRIGLYCERIDE OR LOWER NON-HDL SPECIMENS. FOR MOREINFORMATION, SEE CLIENT ANNOUNCEMENT AT [email or web address] RISK RATIO LDL/HDL (test code = 2238) 3.45 RATIO <3.22 H COMPREHENSIVE METABOLIC [id number] 03:22:37* Test Item Value Reference Range Interpretation Comme nts GLUCOSE (test code = 2216) 337 MG/DL 70-99 H BUN (test code = 2207) 32 MG/DL 6-20 H CREATININE (test code = 2214) 2.13 MG/DL 0.60-1.30 H eGFR (2020 CKD-EPI) (test co de = 78426) 27 ML/MIN/1.73 >60 L CALC BUN/CREAT (test code = 2234) 15 RATIO 6-28 SODIUM (test code = 223) 133 MEQ/L 133-146 POTASSIUM (test code = 2228) 4.4 MEQ/L 3.5-5.4 CHLORIDE (test code = 2215) 95 MEQ/L 95-107 CARBON DIOXIDE (test code = 6) 23 MEQ/L 19-31 CALCIUM (test code = 2209) 9.6 MG/DL 8.5-10.5 PROTEIN, TOTAL (test code = 2228) 7.9 G/DL 6.1-8.3 ALBUMIN (test code = 2200) 4.3 G/DL 3.5-5.2 CALC GLOBULIN (test code = 2240) 3.6 G/DL 1.9-3.7 CALC A/G RATIO (test code = 2234) 1.2 RATIO 1.0-2.6 BILIRUBIN, TOTAL (test code = 2206) 0.4 MG/DL <=1.2 ALKALINE PHOSPHATASE (test code = 2203) 190 U/L 40-136 H AST (test code = 2217) 17 U/L 9-40 ALT (test code = 2219) 10 U/L 5-40 HEMOGLOBIN [id number] 02:42:18* Test Item Value Reference Range Interpretation Comme nts HEMOGLOBIN A1c (test code = 97446) 9.5 % 4.2-5.6 H [employer] GUIDELINES FOR HGB A1C: PREDIABETES/INCREASED RISK . . . . . . . 5.7-6.4% DIAGNOSIS OF DIABETES . . . . . . . . . >=6.5% WITH CONFIRMATION OR APPROPRIATE SYMPTOMS NOTE: ASSAY MAY BE AFFECTED BY HEMOGLOBINOPATHIES (SICKLE CELL ANEMIA, S-C DISEASE, OTHERS) OR ARTIFICIALLY LOWERED BY DECREASED RED CELL SURVIVAL (HEMOLYTIC ANEMIAS, BLOOD LOSS, ETC.). CONSIDER ALTERNATE TESTING OR LABORATORY CONSULTATION. HEMOGLOBIN [id number] 00:00:00* Test Item Value Reference Range Interpretation Comme [facility] HEMOGLOBIN A1c (test code = 43355) 9.5 % Serafin GaytanLIPID [id number] 00:00:00* Test Item Value Reference Range Interpretation Comme nts CHOLESTEROL (test code = 2210) 288 MG/DL TRIGLYCERIDES (test code = 2232) 304 MG/DL HDL CHOLESTEROL (test code = 2220) 53 MG/DL CALC LDL CHOL (test code = 2237) 183 MG/DL RISK RATIO LDL/HDL (test cod e = 2238) 3.45 RATIO Serafin GaytanCOMPREHENSIVE METABOLIC [id number] 00:00:00* Test Item Value Reference Range Interpretation Comme nts GLUCOSE (test code = 2217) 337 MG/DL BUN (test code = 2208) 32 MG/DL CREATININE (test code = 2214) 2.13 MG/DL eGFR (2020 CKD-EPI) (test co de = 38501) 27 ML/MIN/1.73 CALC BUN/CREAT (test code = 2235) 15 RATIO SODIUM (test code = 2231) 133 MEQ/L POTASSIUM (test code = 2228) 4.4 MEQ/L CHLORIDE (test code = 2215) 95 MEQ/L CARBON DIOXIDE (test code = 2206) 23 MEQ/L CALCIUM (test code = 2209) 9.6 MG/DL PROTEIN, TOTAL (test code = 2229) 7.9 G/DL ALBUMIN (test code = 2201) 4.3 G/DL CALC GLOBULIN (test code = 2240) 3.6 G/DL CALC A/G RATIO (test code = 2234) 1.2 RATIO BILIRUBIN, TOTAL (test code = 2207) 0.4 MG/DL ALKALINE PHOSPHATASE (test code = 2204) 190 U/L AST (test code = 2218) 17 U/L ALT (test code = 2219) 10 U/L Serafin GaytanTSH, THIRD [id number] 00:00:00* Test Item Value Reference Range Interpretation Comme nts TSH, THIRD GENERATION (test code = 2821) 1.450 UIU/ML Serafin GaytanALBUMIN/CREATININE RATIO, RANDOM [id number] 00:00:00* Test Item Value Reference Range Interpretation Comme nts CREATININE, URINE, CONC. (te st code = 2072) 26.5 MG/DL ALBUMIN, URINE, RANDOM (test code = 12541) 29.0 MG/DL CALC ALBUMIN/CREAT, RND (jacob t code = 88705) 1094 MG/G Serafin GaytanHEMOGLOBIN [id number] 00:00:00* Test Item Value Reference Range Interpretation Comme nts HEMOGLOBIN A1c (test code = 74081) 9.5 % Serafin GaytanLIPID [id number] 00:00:00* Test Item Value Reference Range Interpretation Comme nts CHOLESTEROL (test code = 2210) 265 MG/DL TRIGLYCERIDES (test code = 2232) 207 MG/DL HDL CHOLESTEROL (test code = 2220) 53 MG/DL CALC LDL CHOL (test code = 2237) 175 MG/DL RISK RATIO LDL/HDL (test cod e = 2238) 3.30 RATIO Serafin GaytanCOMPREHENSIVE METABOLIC [id number] 00:00:00* Test Item Value Reference Range Interpretation Comme nts GLUCOSE (test code = 2217) 187 MG/DL BUN (test code = 2208) 35 MG/DL CREATININE (test code = 2214) 2.00 MG/DL eGFR (2020 CKD-EPI) (test co de = 65978) 29 ML/MIN/1.73 CALC BUN/CREAT (test code = 2235) 18 RATIO SODIUM (test code = 2231) 140 MEQ/L POTASSIUM (test code = 2228) 4.7 MEQ/L CHLORIDE (test code = 2215) 104 MEQ/L CARBON DIOXIDE (test code = 2206) 20 MEQ/L CALCIUM (test code = 2209) 9.2 MG/DL PROTEIN, TOTAL (test code = 2229) 6.9 G/DL ALBUMIN (test code = 2201) 3.9 G/DL CALC GLOBULIN (test code = 2240) 3.0 G/DL CALC A/G RATIO (test code = 2234) 1.3 RATIO BILIRUBIN, TOTAL (test code = 2207) 0.4 MG/DL ALKALINE PHOSPHATASE (test code = 2204) 114 U/L AST (test code = 2218) 14 U/L ALT (test code = 2219) 7 U/L Serafin Caldera AustinALBUMIN/CREATININE RATIO, RANDOM [id number] 00:00:00* Test Item Value Reference Range Interpretation Comme nts CREATININE, URINE, CONC. (te st code = 2072) 40.3 MG/DL ALBUMIN, URINE, RANDOM (test code = 11319) 71.7 MG/DL CALC ALBUMIN/CREAT, RND (jacob t code = 62633) 1779 MG/G Serafin GaytanTSH, THIRD [id number] 00:00:00* Test Item Value Reference Range Interpretation Comme [facility] TSH, THIRD GENERATION (test code = 2821) 2.780 UIU/ML Serafin GaytanHEMOGLOBIN [id number] 00:00:00* Test Item Value Reference Range Interpretation Comme [facility] HEMOGLOBIN A1c (test code = 16292) 9.5 % Serafin GaytanLIPID [id number] 00:00:00* Test Item Value Reference Range Interpretation Comme nts CHOLESTEROL (test code = 2210) 265 MG/DL TRIGLYCERIDES (test code = 2232) 207 MG/DL HDL CHOLESTEROL (test code = 2220) 53 MG/DL CALC LDL CHOL (test code = 2237) 175 MG/DL RISK RATIO LDL/HDL (test cod e = 2238) 3.30 RATIO Serafin GaytanCOMPREHENSIVE METABOLIC [id number] 00:00:00* Test Item Value Reference Range Interpretation Comme nts GLUCOSE (test code = 2217) 187 MG/DL BUN (test code = 2208) 35 MG/DL CREATININE (test code = 2214) 2.00 MG/DL eGFR (2020 CKD-EPI) (test co de = 73048) 29 ML/MIN/1.73 CALC BUN/CREAT (test code = 2235) 18 RATIO SODIUM (test code = 2231) 140 MEQ/L POTASSIUM (test code = 2228) 4.7 MEQ/L CHLORIDE (test code = 2215) 104 MEQ/L CARBON DIOXIDE (test code = 2206) 20 MEQ/L CALCIUM (test code = 2209) 9.2 MG/DL PROTEIN, TOTAL (test code = 2229) 6.9 G/DL ALBUMIN (test code = 2201) 3.9 G/DL CALC GLOBULIN (test code = 2240) 3.0 G/DL CALC A/G RATIO (test code = 2234) 1.3 RATIO BILIRUBIN, TOTAL (test code = 2207) 0.4 MG/DL ALKALINE PHOSPHATASE (test code = 2204) 114 U/L AST (test code = 2218) 14 U/L ALT (test code = 2219) 7 U/L Serafin GaytanALBUMIN/CREATININE RATIO, RANDOM [id number] 00:00:00* Test Item Value Reference Range Interpretation Comme [facility] CREATININE, URINE, CONC. (te st code = 2072) 40.3 MG/DL ALBUMIN, URINE, RANDOM (test code = 95863) 71.7 MG/DL CALC ALBUMIN/CREAT, RND (jacob t code = 58077) 1779 MG/G Serafin GaytnaTSH, THIRD [id number] 00:00:00* Test Item Value Reference Range Interpretation Comme [facility] TSH, THIRD GENERATION (test code = 2821) 2.780 UIU/ML Serafin GaytanHEMOGLOBIN [id number] 00:00:00* Test Item Value Reference Range Interpretation Comme [facility] HEMOGLOBIN A1c (test code = 61245) 9.5 % Serafin GaytanLIPID [id number] 00:00:00* Test Item Value Reference Range Interpretation Comme nts CHOLESTEROL (test code = 2210) 265 MG/DL TRIGLYCERIDES (test code = 2232) 207 MG/DL HDL CHOLESTEROL (test code = 2220) 53 MG/DL CALC LDL CHOL (test code = 2237) 175 MG/DL RISK RATIO LDL/HDL (test cod e = 2238) 3.30 RATIO Serafin GaytanCOMPREHENSIVE METABOLIC [id number] 00:00:00* Test Item Value Reference Range Interpretation Comme nts GLUCOSE (test code = 2217) 187 MG/DL BUN (test code = 2208) 35 MG/DL CREATININE (test code = 2214) 2.00 MG/DL eGFR (2020 CKD-EPI) (test co de = 49577) 29 ML/MIN/1.73 CALC BUN/CREAT (test code = 2235) 18 RATIO SODIUM (test code = 2231) 140 MEQ/L POTASSIUM (test code = 2228) 4.7 MEQ/L CHLORIDE (test code = 2215) 104 MEQ/L CARBON DIOXIDE (test code = 2206) 20 MEQ/L CALCIUM (test code = 2209) 9.2 MG/DL PROTEIN, TOTAL (test code = 2229) 6.9 G/DL ALBUMIN (test code = 2201) 3.9 G/DL CALC GLOBULIN (test code = 2240) 3.0 G/DL CALC A/G RATIO (test code = 2234) 1.3 RATIO BILIRUBIN, TOTAL (test code = 2207) 0.4 MG/DL ALKALINE PHOSPHATASE (test code = 2204) 114 U/L AST (test code = 2218) 14 U/L ALT (test code = 2219) 7 U/L Serafin GaytanALBUMIN/CREATININE RATIO, RANDOM [id number] 00:00:00* Test Item Value Reference Range Interpretation Comme [facility] CREATININE, URINE, CONC. (te st code = 2072) 40.3 MG/DL ALBUMIN, URINE, RANDOM (test code = 06596) 71.7 MG/DL CALC ALBUMIN/CREAT, RND (jacob t code = 96217) 1779 MG/G Serafin GaytanTSH, THIRD [id number] 00:00:00* Test Item Value Reference Range Interpretation Comme [facility] TSH, THIRD GENERATION (test code = 2821) 2.780 UIU/ML Serafin GaytanHEMOGLOBIN [id number] 00:00:00* Test Item Value Reference Range Interpretation Comme [facility] HEMOGLOBIN A1c (test code = 31406) 9.5 % Serafin GaytanLIPID [id number] 00:00:00* Test Item Value Reference Range Interpretation Comme nts CHOLESTEROL (test code = 2210) 265 MG/DL TRIGLYCERIDES (test code = 2232) 207 MG/DL HDL CHOLESTEROL (test code = 2220) 53 MG/DL CALC LDL CHOL (test code = 2237) 175 MG/DL RISK RATIO LDL/HDL (test cod e = 2238) 3.30 RATIO Serafin GaytanCOMPREHENSIVE METABOLIC [id number] 00:00:00* Test Item Value Reference Range Interpretation Comme nts GLUCOSE (test code = 2217) 187 MG/DL BUN (test code = 2208) 35 MG/DL CREATININE (test code = 2214) 2.00 MG/DL eGFR (2020 CKD-EPI) (test co de = 59442) 29 ML/MIN/1.73 CALC BUN/CREAT (test code = 2235) 18 RATIO SODIUM (test code = 2231) 140 MEQ/L POTASSIUM (test code = 2228) 4.7 MEQ/L CHLORIDE (test code = 2215) 104 MEQ/L CARBON DIOXIDE (test code = 2206) 20 MEQ/L CALCIUM (test code = 2209) 9.2 MG/DL PROTEIN, TOTAL (test code = 2229) 6.9 G/DL ALBUMIN (test code = 220) 3.9 G/DL CALC GLOBULIN (test code = 2240) 3.0 G/DL CALC A/G RATIO (test code = 2234) 1.3 RATIO BILIRUBIN, TOTAL (test code = 2207) 0.4 MG/DL ALKALINE PHOSPHATASE (test code = 220) 114 U/L AST (test code = 221) 14 U/L ALT (test code = 221) 7 U/L Serafin GaytanALBUMIN/CREATININE RATIO, RANDOM [id number] 00:00:00* Test Item Value Reference Range Interpretation Comme [facility] CREATININE, URINE, CONC. (te st code = 2072) 40.3 MG/DL ALBUMIN, URINE, RANDOM (test code = 28623) 71.7 MG/DL CALC ALBUMIN/CREAT, RND (jacob t code = 88742) 1779 MG/G Serafin GaytanTSH, THIRD [id number] 00:00:00* Test Item Value Reference Range Interpretation Comme [facility] TSH, THIRD GENERATION (test code = 2821) 2.780 UIU/ML Serafin GaytanHEMOGLOBIN [id number] 00:00:00* Test Item Value Reference Range Interpretation Comme nts HEMOGLOBIN A1c (test code = 89932) 9.5 % Serafin GaytanLIPID [id number] 00:00:00* Test Item Value Reference Range Interpretation Comme nts CHOLESTEROL (test code = 2210) 265 MG/DL TRIGLYCERIDES (test code = 2232) 207 MG/DL HDL CHOLESTEROL (test code = 2220) 53 MG/DL CALC LDL CHOL (test code = 2237) 175 MG/DL RISK RATIO LDL/HDL (test cod e = 2238) 3.30 RATIO Serafin GaytanCOMPREHENSIVE METABOLIC [id number] 00:00:00* Test Item Value Reference Range Interpretation Comme nts GLUCOSE (test code = 2217) 187 MG/DL BUN (test code = 2208) 35 MG/DL CREATININE (test code = 2214) 2.00 MG/DL eGFR (2020 CKD-EPI) (test co de = 82301) 29 ML/MIN/1.73 CALC BUN/CREAT (test code = 2235) 18 RATIO SODIUM (test code = 2231) 140 MEQ/L POTASSIUM (test code = 2228) 4.7 MEQ/L CHLORIDE (test code = 2215) 104 MEQ/L CARBON DIOXIDE (test code = 2206) 20 MEQ/L CALCIUM (test code = 2209) 9.2 MG/DL PROTEIN, TOTAL (test code = 2229) 6.9 G/DL ALBUMIN (test code = 220) 3.9 G/DL CALC GLOBULIN (test code = 2240) 3.0 G/DL CALC A/G RATIO (test code = 2234) 1.3 RATIO BILIRUBIN, TOTAL (test code = 2207) 0.4 MG/DL ALKALINE PHOSPHATASE (test code = 220) 114 U/L AST (test code = 2218) 14 U/L ALT (test code = 2219) 7 U/L Serafin GaytanALBUMIN/CREATININE RATIO, RANDOM [id number] 00:00:00* Test Item Value Reference Range Interpretation Comme [facility] CREATININE, URINE, CONC. (te st code = 2072) 40.3 MG/DL ALBUMIN, URINE, RANDOM (test code = 70398) 71.7 MG/DL CALC ALBUMIN/CREAT, RND (jacob t code = 44217) 1779 MG/G Serafin Bennett, THIRD [id number] 00:00:00* Test Item Value Reference Range Interpretation Comme [facility] TSH, THIRD GENERATION (test code = 2821) 2.780 UIU/ML Serafin Bennett, THIRD [id number] 21:31:34* Test Item Value Reference Range Interpretation Comme [facility] TSH, THIRD GENERATION (test code = 2821) 1.720 UIU/ML 0.400-4.100 UNLESS OTHERWISE INDICATED, ALL TESTING PERFORMED AT [facility] [address] [place] [id number] CHIEF ADMINISTRATIVE OFFICER: JOLYNN HUNT M.D. CLIA NUMBER [id number] [place]. [id number] TSH, THIRD [id number] 00:00:00* Test Item Value Reference Range Interpretation Comme nts TSH, THIRD GENERATION (test code = 2821) 1.720 UIU/ML DOMI Garcia [id number] 00:00:00* Test Item Value Reference Range Interpretation Comme nts TSH, THIRD GENERATION (test code = 2821) 1.720 UIU/ML DOMI Garcia [id number] 00:00:00* Test Item Value Reference Range Interpretation Comme nts TSH, THIRD GENERATION (test code = 2821) 1.720 UIU/ML DOMI Garcia [id number] 00:00:00* Test Item Value Reference Range Interpretation Comme nts TSH, THIRD GENERATION (test code = 2821) 1.720 UIU/ML DOMI Garcia [id number] 00:00:00* Test Item Value Reference Range Interpretation Comme [facility] MENDES, THIRD GENERATION (test code = 2821) 1.720 UIU/ML DOMI Garcia [id number] 00:00:00* Test Item Value Reference Range Interpretation Comme nts CINTHYA, THIRD GENERATION (test code = 2821) 1.720 UIU/ML Serafin GaytanLIPID [id number] 08:10:20* Test Item Value Reference Range Interpretation Comme nts CHOLESTEROL (test code = 2210) 329 MG/DL <200 H TRIGLYCERIDES (test code = 2232) 227 MG/DL <150 H HDL CHOLESTEROL (test code = 2220) 57 MG/DL >39 CALC LDL CHOL (test code = 2237) 230 MG/DL <100 H NOTE: CALCULATED LDL IS BASED ON SULY-AHUJA METHOD WHICHINCLUDES ADJUSTABLE TRIGLYCERIDE:VLDL CHOLESTEROL RATIO.THIS FACTOR VARIES BY MEASURED TRIGLYCERIDE AND NON-HDLCHOLESTEROL CONCENTRATIONS WITH INCREASED CALCULATED LDL SEENIN HIGHER TRIGLYCERIDE OR LOWER NON-HDL SPECIMENS. FOR MOREINFORMATION, SEE CLIENT ANNOUNCEMENT AT [email or web address] [email or web address] RATIO LDL/HDL (test code = 2238) 4.04 RATIO <3.22 H COMPREHENSIVE METABOLIC [id number] 08:10:20* Test Item Value Reference Range Interpretation Comme nts GLUCOSE (test code = 2217) 172 MG/DL 70-99 H BUN (test code = 2207) 37 MG/DL 6-20 H CREATININE (test code = 2213) 1.75 MG/DL 0.60-1.30 H eGFR (2020 CKD-EPI) (test co de = 96030) 34 ML/MIN/1.73 >60 L CALC BUN/CREAT (test code = 2234) 21 RATIO 6-28 SODIUM (test code = 2230) 136 MEQ/L 133-146 POTASSIUM (test code = 2227) 5.0 MEQ/L 3.5-5.4 CHLORIDE (test code = 2214) 99 MEQ/L 95-107 CARBON DIOXIDE (test code = 2205) 25 MEQ/L 19-31 CALCIUM (test code = 2208) 9.3 MG/DL 8.5-10.5 PROTEIN, TOTAL (test code = 2228) 7.7 G/DL 6.1-8.3 ALBUMIN (test code = 2200) 4.1 G/DL 3.5-5.2 CALC GLOBULIN (test code = 2239) 3.6 G/DL 1.9-3.7 CALC A/G RATIO (test code = 2233) 1.1 RATIO 1.0-2.6 BILIRUBIN, TOTAL (test code = 2206) 0.4 MG/DL <=1.2 ALKALINE PHOSPHATASE (test code = 2203) 172 U/L 40-136 H AST (test code = 2217) 15 U/L 9-40 ALT (test code = 2218) 9 U/L 5-40 HEMOGLOBIN [id number] 03:51:49* Test Item Value Reference Range Interpretation Comme nts HEMOGLOBIN A1c (test code = 57291) 10.1 % 4.2-5.6 H [employer] GUIDELINES FOR HGB A1C: PREDIABETES/INCREASED RISK . . . . . . . 5.7-6.4% DIAGNOSIS OF DIABETES . . . . . . . . . >=6.5% WITH CONFIRMATION OR APPROPRIATE SYMPTOMS NOTE: ASSAY MAY BE AFFECTED BY HEMOGLOBINOPATHIES (SICKLE CELL ANEMIA, S-C DISEASE, OTHERS) OR ARTIFICIALLY LOWERED BY DECREASED RED CELL SURVIVAL (HEMOLYTIC ANEMIAS, BLOOD LOSS, ETC.). CONSIDER ALTERNATE TESTING OR LABORATORY CONSULTATION. HEMOGLOBIN [id number] 00:00:00* Test Item Value Reference Range Interpretation Comme nts HEMOGLOBIN A1c (test code = 05539) 10.1 % Serafin Caldera AustinLIPID [id number] 00:00:00* Test Item Value Reference Range Interpretation Comme nts CHOLESTEROL (test code = 2210) 329 MG/DL TRIGLYCERIDES (test code = 2232) 227 MG/DL HDL CHOLESTEROL (test code = 2220) 57 MG/DL CALC LDL CHOL (test code = 2237) 230 MG/DL RISK RATIO LDL/HDL (test cod e = 2238) 4.04 RATIO Serafin GaytanCOMPREHENSIVE METABOLIC [id number] 00:00:00* Test Item Value Reference Range Interpretation Comme nts GLUCOSE (test code = 2217) 172 MG/DL BUN (test code = 2208) 37 MG/DL CREATININE (test code = 2214) 1.75 MG/DL eGFR (2020 CKD-EPI) (test co de = 22438) 34 ML/MIN/1.73 CALC BUN/CREAT (test code = 2235) 21 RATIO SODIUM (test code = 2231) 136 MEQ/L POTASSIUM (test code = 2228) 5.0 MEQ/L CHLORIDE (test code = 2215) 99 MEQ/L CARBON DIOXIDE (test code = 2206) 25 MEQ/L CALCIUM (test code = 2209) 9.3 MG/DL PROTEIN, TOTAL (test code = 2229) 7.7 G/DL ALBUMIN (test code = 2201) 4.1 G/DL CALC GLOBULIN (test code = 2240) 3.6 G/DL CALC A/G RATIO (test code = 2234) 1.1 RATIO BILIRUBIN, TOTAL (test code = 2207) 0.4 MG/DL ALKALINE PHOSPHATASE (test code = 2204) 172 U/L AST (test code = 2218) 15 U/L ALT (test code = 2219) 9 U/L Serafin GaytanHEMOGLOBIN [id number] 00:00:00* Test Item Value Reference Range Interpretation Comme nts HEMOGLOBIN A1c (test code = 05844) 10.1 % Serafin Caldera AustinLIPID [id number] 00:00:00* Test Item Value Reference Range Interpretation Comme nts CHOLESTEROL (test code = 2210) 329 MG/DL TRIGLYCERIDES (test code = 2232) 227 MG/DL HDL CHOLESTEROL (test code = 2220) 57 MG/DL CALC LDL CHOL (test code = 2237) 230 MG/DL RISK RATIO LDL/HDL (test cod e = 2238) 4.04 RATIO Serafin GaytanCOMPREHENSIVE METABOLIC [id number] 00:00:00* Test Item Value Reference Range Interpretation Comme nts GLUCOSE (test code = 2217) 172 MG/DL BUN (test code = 2208) 37 MG/DL CREATININE (test code = 2214) 1.75 MG/DL eGFR (2020 CKD-EPI) (test co de = 93821) 34 ML/MIN/1.73 CALC BUN/CREAT (test code = 2235) 21 RATIO SODIUM (test code = 2231) 136 MEQ/L POTASSIUM (test code = 2228) 5.0 MEQ/L CHLORIDE (test code = 2215) 99 MEQ/L CARBON DIOXIDE (test code = 2206) 25 MEQ/L CALCIUM (test code = 2209) 9.3 MG/DL PROTEIN, TOTAL (test code = 2229) 7.7 G/DL ALBUMIN (test code = 2201) 4.1 G/DL CALC GLOBULIN (test code = 2240) 3.6 G/DL CALC A/G RATIO (test code = 2234) 1.1 RATIO BILIRUBIN, TOTAL (test code = 2207) 0.4 MG/DL ALKALINE PHOSPHATASE (test code = 2204) 172 U/L AST (test code = 2218) 15 U/L ALT (test code = 2219) 9 U/L Serafin GaytanHEMOGLOBIN [id number] 00:00:00* Test Item Value Reference Range Interpretation Comme nts HEMOGLOBIN A1c (test code = 20016) 10.1 % Serafin GaytanLIPID [id number] 00:00:00* Test Item Value Reference Range Interpretation Comme nts CHOLESTEROL (test code = 2210) 329 MG/DL TRIGLYCERIDES (test code = 2232) 227 MG/DL HDL CHOLESTEROL (test code = 2220) 57 MG/DL CALC LDL CHOL (test code = 2237) 230 MG/DL RISK RATIO LDL/HDL (test cod e = 2238) 4.04 RATIO Serafin GaytanCOMPREHENSIVE METABOLIC [id number] 00:00:00* Test Item Value Reference Range Interpretation Comme nts GLUCOSE (test code = 2217) 172 MG/DL BUN (test code = 2208) 37 MG/DL CREATININE (test code = 2214) 1.75 MG/DL eGFR (2020 CKD-EPI) (test co de = 12767) 34 ML/MIN/1.73 CALC BUN/CREAT (test code = 2235) 21 RATIO SODIUM (test code = 2231) 136 MEQ/L POTASSIUM (test code = 2228) 5.0 MEQ/L CHLORIDE (test code = 2215) 99 MEQ/L CARBON DIOXIDE (test code = 2206) 25 MEQ/L CALCIUM (test code = 2209) 9.3 MG/DL PROTEIN, TOTAL (test code = 2229) 7.7 G/DL ALBUMIN (test code = 2201) 4.1 G/DL CALC GLOBULIN (test code = 2240) 3.6 G/DL CALC A/G RATIO (test code = 2234) 1.1 RATIO BILIRUBIN, TOTAL (test code = 2207) 0.4 MG/DL ALKALINE PHOSPHATASE (test code = 2204) 172 U/L AST (test code = 2218) 15 U/L ALT (test code = 2219) 9 U/L Serafin GaytanHEMOGLOBIN [id number] 00:00:00* Test Item Value Reference Range Interpretation Comme nts HEMOGLOBIN A1c (test code = 13714) 10.1 % Serafin GaytanLIPID [id number] 00:00:00* Test Item Value Reference Range Interpretation Comme nts CHOLESTEROL (test code = 2210) 329 MG/DL TRIGLYCERIDES (test code = 2232) 227 MG/DL HDL CHOLESTEROL (test code = 2220) 57 MG/DL CALC LDL CHOL (test code = 2237) 230 MG/DL RISK RATIO LDL/HDL (test cod e = 2238) 4.04 RATIO Serafin GaytanCOMPREHENSIVE METABOLIC [id number] 00:00:00* Test Item Value Reference Range Interpretation Comme nts GLUCOSE (test code = 2217) 172 MG/DL BUN (test code = 2208) 37 MG/DL CREATININE (test code = 2214) 1.75 MG/DL eGFR (2020 CKD-EPI) (test co de = 97670) 34 ML/MIN/1.73 CALC BUN/CREAT (test code = 2235) 21 RATIO SODIUM (test code = 2231) 136 MEQ/L POTASSIUM (test code = 2228) 5.0 MEQ/L CHLORIDE (test code = 2215) 99 MEQ/L CARBON DIOXIDE (test code = 2206) 25 MEQ/L CALCIUM (test code = 2209) 9.3 MG/DL PROTEIN, TOTAL (test code = 2229) 7.7 G/DL ALBUMIN (test code = 2201) 4.1 G/DL CALC GLOBULIN (test code = 2240) 3.6 G/DL CALC A/G RATIO (test code = 2234) 1.1 RATIO BILIRUBIN, TOTAL (test code = 2207) 0.4 MG/DL ALKALINE PHOSPHATASE (test code = 2204) 172 U/L AST (test code = 2218) 15 U/L ALT (test code = 2219) 9 U/L Serafin GaytanHEMOGLOBIN [id number] 00:00:00* Test Item Value Reference Range Interpretation Comme nts HEMOGLOBIN A1c (test code = 01082) 10.1 % Serafin GaytanLIPID [id number] 00:00:00* Test Item Value Reference Range Interpretation Comme nts CHOLESTEROL (test code = 2210) 329 MG/DL TRIGLYCERIDES (test code = 2232) 227 MG/DL HDL CHOLESTEROL (test code = 2220) 57 MG/DL CALC LDL CHOL (test code = 2237) 230 MG/DL RISK RATIO LDL/HDL (test cod e = 2238) 4.04 RATIO Serafin GaytanCOMPREHENSIVE METABOLIC [id number] 00:00:00* Test Item Value Reference Range Interpretation Comme nts GLUCOSE (test code = 2217) 172 MG/DL BUN (test code = 2208) 37 MG/DL CREATININE (test code = 2214) 1.75 MG/DL eGFR (2020 CKD-EPI) (test co de = 77867) 34 ML/MIN/1.73 CALC BUN/CREAT (test code = 2235) 21 RATIO SODIUM (test code = 2231) 136 MEQ/L POTASSIUM (test code = 2228) 5.0 MEQ/L CHLORIDE (test code = 2215) 99 MEQ/L CARBON DIOXIDE (test code = 2206) 25 MEQ/L CALCIUM (test code = 2209) 9.3 MG/DL PROTEIN, TOTAL (test code = 2229) 7.7 G/DL ALBUMIN (test code = 2201) 4.1 G/DL CALC GLOBULIN (test code = 2240) 3.6 G/DL CALC A/G RATIO (test code = 2234) 1.1 RATIO BILIRUBIN, TOTAL (test code = 2207) 0.4 MG/DL ALKALINE PHOSPHATASE (test code = 2204) 172 U/L AST (test code = 2218) 15 U/L ALT (test code = 2219) 9 U/L Serafin GaytanHEMOGLOBIN [id number] 00:00:00* Test Item Value Reference Range Interpretation Comme nts HEMOGLOBIN A1c (test code = 27796) 10.1 % Serafin GaytanLIPID [id number] 00:00:00* Test Item Value Reference Range Interpretation Comme nts CHOLESTEROL (test code = 2210) 329 MG/DL TRIGLYCERIDES (test code = 2232) 227 MG/DL HDL CHOLESTEROL (test code = 2220) 57 MG/DL CALC LDL CHOL (test code = 2237) 230 MG/DL RISK RATIO LDL/HDL (test cod e = 2238) 4.04 RATIO Serafin GaytanCOMPREHENSIVE METABOLIC [id number] 00:00:00* Test Item Value Reference Range Interpretation Comme nts GLUCOSE (test code = 2217) 172 MG/DL BUN (test code = 2208) 37 MG/DL CREATININE (test code = 2214) 1.75 MG/DL eGFR (2020 CKD-EPI) (test co de = 65557) 34 ML/MIN/1.73 CALC BUN/CREAT (test code = 2235) 21 RATIO SODIUM (test code = 2231) 136 MEQ/L POTASSIUM (test code = 2228) 5.0 MEQ/L CHLORIDE (test code = 2215) 99 MEQ/L CARBON DIOXIDE (test code = 2206) 25 MEQ/L CALCIUM (test code = 2209) 9.3 MG/DL PROTEIN, TOTAL (test code = 2229) 7.7 G/DL ALBUMIN (test code = 2201) 4.1 G/DL CALC GLOBULIN (test code = 2240) 3.6 G/DL CALC A/G RATIO (test code = 2234) 1.1 RATIO BILIRUBIN, TOTAL (test code = 2207) 0.4 MG/DL ALKALINE PHOSPHATASE (test code = 2204) 172 U/L AST (test code = 2218) 15 U/L ALT (test code = 2219) 9 U/L Serafin Bennett, THIRD [id number] 06:57:04* Test Item Value Reference Range Interpretation Comme nts TSH, THIRD GENERATION (test code = 2821) 3.490 UIU/ML 0.400-4.100 COMPREHENSIVE METABOLIC [id number] 06:47:40* Test Item Value Reference Range Interpretation Comme nts GLUCOSE (test code = 2217) 187 MG/DL 70-99 H BUN (test code = 2208) 34 MG/DL 6-20 H CREATININE (test code = 2214) 1.71 MG/DL 0.60-1.30 H eGFR (2020 CKD-EPI) (test code = 75998) 35 ML/MIN/1.73 >60 L CALC BUN/CREAT (test code = 2235) 20 RATIO 6-28 SODIUM (test code = 223) 138 MEQ/L 133-146 POTASSIUM (test code = 2228) 5.3 MEQ/L 3.5-5.4 CHLORIDE (test code = 2215) 102 MEQ/L 95-107 CARBON DIOXIDE (test code = 2206) 25 MEQ/L 19-31 CALCIUM (test code = 2209) 9.4 MG/DL 8.5-10.5 PROTEIN, TOTAL (test code = 2229) 7.1 G/DL 6.1-8.3 ALBUMIN (test code = 2201) 3.8 G/DL 3.5-5.2 CALC GLOBULIN (test code = 2240) 3.3 G/DL 1.9-3.7 CALC A/G RATIO (test code = 2234) 1.2 RATIO 1.0-2.6 BILIRUBIN, TOTAL (test code = 2207) 0.2 MG/DL <=1.2 ALKALINE PHOSPHATASE (test code = 2204) 126 U/L 40-136 AST (test code = 2218) 18 U/L 9-40 ALT (test code = 2219) 9 U/L 5-40 UNLESS OTHERWISE INDICATED, ALL TESTING PERFORMED AT [facility] [address] [place] [id number] CHIEF ADMINISTRATIVE OFFICER: JOLYNN HUNT M.D. CLIA NUMBER [id number] [facility] [place]. [id number] ALBUMIN/CREATININE RATIO, URINE, [id number] 05:27:36* Test Item Value Reference Range Interpretation Comme nts CREATININE, URINE, CONC. (test code = 2072) 42.1 MG/DL NOT ESTAB ALBUMIN, URINE, RANDOM (test code = 73670) 79.1 MG/DL NOT ESTAB CALC ALBUMIN/CREAT, RND (test code = 16333) 1879 MG/G <30 H Note: Albumin/Creatinine ratio reference interval reflects ADA and NKF guidelines. HEMOGLOBIN [id number] 04:11:03* Test Item Value Reference Range Interpretation Comme nts HEMOGLOBIN A1c (test code = 23756) 8.6 % 4.2-5.6 H [employer] GUIDELINES FOR HGB A1C: PREDIABETES/INCREASED RISK . . . . . . . 5.7-6.4% DIAGNOSIS OF DIABETES . . . . . . . . . >=6.5% WITH CONFIRMATION OR APPROPRIATE SYMPTOMS NOTE: ASSAY MAY BE AFFECTED BY HEMOGLOBINOPATHIES (SICKLE CELL ANEMIA, S-C DISEASE, OTHERS) OR ARTIFICIALLY LOWERED BY DECREASED RED CELL SURVIVAL (HEMOLYTIC ANEMIAS, BLOOD LOSS, ETC.). CONSIDER ALTERNATE TESTING OR LABORATORY CONSULTATION. COMPREHENSIVE METABOLIC [id number] 00:00:00* Test Item Value Reference Range Interpretation Comme nts GLUCOSE (test code = 2216) 187 MG/DL BUN (test code = 8) 34 MG/DL CREATININE (test code = 2214) 1.71 MG/DL eGFR (2020 CKD-EPI) (test co de = 88005) 35 ML/MIN/1.73 CALC BUN/CREAT (test code = 2235) 20 RATIO SODIUM (test code = 2231) 138 MEQ/L POTASSIUM (test code = 2228) 5.3 MEQ/L CHLORIDE (test code = 2215) 102 MEQ/L CARBON DIOXIDE (test code = 2206) 25 MEQ/L CALCIUM (test code = 2209) 9.4 MG/DL PROTEIN, TOTAL (test code = 2229) 7.1 G/DL ALBUMIN (test code = 2201) 3.8 G/DL CALC GLOBULIN (test code = 2240) 3.3 G/DL CALC A/G RATIO (test code = 2234) 1.2 RATIO BILIRUBIN, TOTAL (test code = 2207) 0.2 MG/DL ALKALINE PHOSPHATASE (test code = 2204) 126 U/L AST (test code = 2218) 18 U/L ALT (test code = 2219) 9 U/L Serafin Bennett, THIRD [id number] 00:00:00* Test Item Value Reference Range Interpretation Comme mercy TSH, THIRD GENERATION (test code = 2821) 3.490 UIU/ML Serafin GaytanHEMOGLOBIN [id number] 00:00:00* Test Item Value Reference Range Interpretation Comme [facility] HEMOGLOBIN A1c (test code = 69328) 8.6 % Serafin Caldera AustinALBUMIN/CREATININE RATIO, RANDOM [id number] 00:00:00* Test Item Value Reference Range Interpretation Comme nts CREATININE, URINE, CONC. (te st code = 2072) 42.1 MG/DL ALBUMIN, URINE, RANDOM (test code = 67416) 79.1 MG/DL CALC ALBUMIN/CREAT, RND (jacob t code = 25911) 1879 MG/G Serafin GaytanCOMPREHENSIVE METABOLIC [id number] 00:00:00* Test Item Value Reference Range Interpretation Comme nts GLUCOSE (test code = 2217) 187 MG/DL BUN (test code = 2208) 34 MG/DL CREATININE (test code = 2214) 1.71 MG/DL eGFR (2020 CKD-EPI) (test co de = 05554) 35 ML/MIN/1.73 CALC BUN/CREAT (test code = 2235) 20 RATIO SODIUM (test code = 2231) 138 MEQ/L POTASSIUM (test code = 2228) 5.3 MEQ/L CHLORIDE (test code = 2215) 102 MEQ/L CARBON DIOXIDE (test code = 2206) 25 MEQ/L CALCIUM (test code = 2209) 9.4 MG/DL PROTEIN, TOTAL (test code = 2229) 7.1 G/DL ALBUMIN (test code = 2201) 3.8 G/DL CALC GLOBULIN (test code = 2240) 3.3 G/DL CALC A/G RATIO (test code = 2234) 1.2 RATIO BILIRUBIN, TOTAL (test code = 2207) 0.2 MG/DL ALKALINE PHOSPHATASE (test code = 2204) 126 U/L AST (test code = 2218) 18 U/L ALT (test code = 2219) 9 U/L Serafin Bennett, THIRD [id number] 00:00:00* Test Item Value Reference Range Interpretation Comme mercy TSH, THIRD GENERATION (test code = 2821) 3.490 UIU/ML Serafin GaytanHEMOGLOBIN [id number] 00:00:00* Test Item Value Reference Range Interpretation Comme [facility] HEMOGLOBIN A1c (test code = 80036) 8.6 % Serafin GaytanALBUMIN/CREATININE RATIO, RANDOM [id number] 00:00:00* Test Item Value Reference Range Interpretation Comme [facility] CREATININE, URINE, CONC. (te st code = 2072) 42.1 MG/DL ALBUMIN, URINE, RANDOM (test code = 38679) 79.1 MG/DL CALC ALBUMIN/CREAT, RND (jacob t code = 99654) 1879 MG/G Serafin GaytanCOMPREHENSIVE METABOLIC [id number] 00:00:00* Test Item Value Reference Range Interpretation Comme mercy GLUCOSE (test code = 2217) 187 MG/DL BUN (test code = 2208) 34 MG/DL CREATININE (test code = 2214) 1.71 MG/DL eGFR (2020 CKD-EPI) (test co de = 67221) 35 ML/MIN/1.73 CALC BUN/CREAT (test code = 2235) 20 RATIO SODIUM (test code = 2231) 138 MEQ/L POTASSIUM (test code = 2228) 5.3 MEQ/L CHLORIDE (test code = 2215) 102 MEQ/L CARBON DIOXIDE (test code = 2206) 25 MEQ/L CALCIUM (test code = 2209) 9.4 MG/DL PROTEIN, TOTAL (test code = 2229) 7.1 G/DL ALBUMIN (test code = 2201) 3.8 G/DL CALC GLOBULIN (test code = 2240) 3.3 G/DL CALC A/G RATIO (test code = 2234) 1.2 RATIO BILIRUBIN, TOTAL (test code = 2207) 0.2 MG/DL ALKALINE PHOSPHATASE (test code = 2204) 126 U/L AST (test code = 2218) 18 U/L ALT (test code = 2219) 9 U/L Serafin PettitH, THIRD [id number] 00:00:00* Test Item Value Reference Range Interpretation Comme mercy TSH, THIRD GENERATION (test code = 2821) 3.490 UIU/ML Serafin GaytanHEMOGLOBIN [id number] 00:00:00* Test Item Value Reference Range Interpretation Comme [facility] HEMOGLOBIN A1c (test code = 53029) 8.6 % Serafin Caldera AustinALBUMIN/CREATININE RATIO, RANDOM [id number] 00:00:00* Test Item Value Reference Range Interpretation Comme [facility] CREATININE, URINE, CONC. (te st code = 2072) 42.1 MG/DL ALBUMIN, URINE, RANDOM (test code = 75581) 79.1 MG/DL CALC ALBUMIN/CREAT, RND (jacob t code = 68671) 1879 MG/G Serafin GaytanCOMPREHENSIVE METABOLIC [id number] 00:00:00* Test Item Value Reference Range Interpretation Comme [facility] GLUCOSE (test code = 2217) 187 MG/DL BUN (test code = 2208) 34 MG/DL CREATININE (test code = 2214) 1.71 MG/DL eGFR (2020 CKD-EPI) (test co de = 50834) 35 ML/MIN/1.73 CALC BUN/CREAT (test code = 2235) 20 RATIO SODIUM (test code = 2231) 138 MEQ/L POTASSIUM (test code = 2228) 5.3 MEQ/L CHLORIDE (test code = 2215) 102 MEQ/L CARBON DIOXIDE (test code = 2206) 25 MEQ/L CALCIUM (test code = 2209) 9.4 MG/DL PROTEIN, TOTAL (test code = 2229) 7.1 G/DL ALBUMIN (test code = 2201) 3.8 G/DL CALC GLOBULIN (test code = 2240) 3.3 G/DL CALC A/G RATIO (test code = 2234) 1.2 RATIO BILIRUBIN, TOTAL (test code = 2207) 0.2 MG/DL ALKALINE PHOSPHATASE (test code = 2204) 126 U/L AST (test code = 2218) 18 U/L ALT (test code = 2219) 9 U/L Serafin GaytanTSH, THIRD [id number] 00:00:00* Test Item Value Reference Range Interpretation Comme mercy TSH, THIRD GENERATION (test code = 2821) 3.490 UIU/ML Serafin GaytanHEMOGLOBIN [id number] 00:00:00* Test Item Value Reference Range Interpretation Comme nts HEMOGLOBIN A1c (test code = 39715) 8.6 % Serafin GaytanALBUMIN/CREATININE RATIO, RANDOM [id number] 00:00:00* Test Item Value Reference Range Interpretation Comme nts CREATININE, URINE, CONC. (te st code = 2072) 42.1 MG/DL ALBUMIN, URINE, RANDOM (test code = 56122) 79.1 MG/DL CALC ALBUMIN/CREAT, RND (jacob t code = 67569) 1879 MG/G Serafin GaytanCOMPREHENSIVE METABOLIC [id number] 00:00:00* Test Item Value Reference Range Interpretation Comme nts GLUCOSE (test code = 2217) 187 MG/DL BUN (test code = 2208) 34 MG/DL CREATININE (test code = 2214) 1.71 MG/DL eGFR (2020 CKD-EPI) (test co de = 80430) 35 ML/MIN/1.73 CALC BUN/CREAT (test code = 2235) 20 RATIO SODIUM (test code = 2231) 138 MEQ/L POTASSIUM (test code = 2228) 5.3 MEQ/L CHLORIDE (test code = 2215) 102 MEQ/L CARBON DIOXIDE (test code = 2206) 25 MEQ/L CALCIUM (test code = 2209) 9.4 MG/DL PROTEIN, TOTAL (test code = 2229) 7.1 G/DL ALBUMIN (test code = 2201) 3.8 G/DL CALC GLOBULIN (test code = 2240) 3.3 G/DL CALC A/G RATIO (test code = 2234) 1.2 RATIO BILIRUBIN, TOTAL (test code = 2207) 0.2 MG/DL ALKALINE PHOSPHATASE (test code = 2204) 126 U/L AST (test code = 2218) 18 U/L ALT (test code = 2219) 9 U/L Serafin GaytanTSH, THIRD [id number] 00:00:00* Test Item Value Reference Range Interpretation Comme [facility] TSH, THIRD GENERATION (test code = 2821) 3.490 UIU/ML Serafin GaytanHEMOGLOBIN [id number] 00:00:00* Test Item Value Reference Range Interpretation Comme nts HEMOGLOBIN A1c (test code = 96073) 8.6 % Serafin GaytanALBUMIN/CREATININE RATIO, RANDOM [id number] 00:00:00* Test Item Value Reference Range Interpretation Comme nts CREATININE, URINE, CONC. (te st code = 2072) 42.1 MG/DL ALBUMIN, URINE, RANDOM (test code = 25635) 79.1 MG/DL CALC ALBUMIN/CREAT, RND (jacob t code = 10864) 1879 MG/G Serafin GaytanCOMPREHENSIVE METABOLIC [id number] 00:00:00* Test Item Value Reference Range Interpretation Comme nts GLUCOSE (test code = 2217) 187 MG/DL BUN (test code = 2208) 34 MG/DL CREATININE (test code = 2214) 1.71 MG/DL eGFR (2020 CKD-EPI) (test co de = 80002) 35 ML/MIN/1.73 CALC BUN/CREAT (test code = 2235) 20 RATIO SODIUM (test code = 2231) 138 MEQ/L POTASSIUM (test code = 2228) 5.3 MEQ/L CHLORIDE (test code = 2215) 102 MEQ/L CARBON DIOXIDE (test code = 2206) 25 MEQ/L CALCIUM (test code = 2209) 9.4 MG/DL PROTEIN, TOTAL (test code = 2229) 7.1 G/DL ALBUMIN (test code = 2201) 3.8 G/DL CALC GLOBULIN (test code = 2240) 3.3 G/DL CALC A/G RATIO (test code = 2234) 1.2 RATIO BILIRUBIN, TOTAL (test code = 2207) 0.2 MG/DL ALKALINE PHOSPHATASE (test code = 2204) 126 U/L AST (test code = 2218) 18 U/L ALT (test code = 2219) 9 U/L Serafin GaytanTSH, THIRD [id number] 00:00:00* Test Item Value Reference Range Interpretation Comme [facility] TSH, THIRD GENERATION (test code = 2821) 3.490 UIU/ML Serafin GaytanHEMOGLOBIN [id number] 00:00:00* Test Item Value Reference Range Interpretation Comme [facility] HEMOGLOBIN A1c (test code = 99081) 8.6 % Serafin GaytanALBUMIN/CREATININE RATIO, RANDOM [id number] 00:00:00* Test Item Value Reference Range Interpretation Comme nts CREATININE, URINE, CONC. (te st code = 2072) 42.1 MG/DL ALBUMIN, URINE, RANDOM (test code = 60282) 79.1 MG/DL CALC ALBUMIN/CREAT, RND (jacob t code = 75795) 1879 MG/G Serafin Caldera AustinGLYCOSYLATED HEMOGLOBIN (A1C)2023-03-20 17:42:24* Test Item Value Reference Range Interpretation Comme nts HGB A1C (test code = 4548-4) 8.2 % 4.0-5.7 H CLARI (test code = CLARI) Reference RangesNormal: <5.7%Prediabetes: 5.7 - 6.4%Diabetes: > 6.5% Lab Interpretation (test code = 45947-4) [facility] 17:42:24* Test Item Value Reference Range Interpretation Comme nts HGB A1C (test code = 4548-4) 8.2 % 4.0-5.7 H CLARI (test code = CLARI) Reference RangesNormal: <5.7%Prediabetes: 5.7 - 6.4%Diabetes: > 6.5% Lab Interpretation (test code = 36676-5) Abnormal [facility] GLUCOSE (AUTOMATED)2023-03-20 16:23:43* Test Item Value Reference Range Interpretation Comme nts POCT GLU (test code = 6286317007) 261 mg/dL 70-110 H Lab Interpretation (test cod e = 16767-5) Abnormal [facility] GLUCOSE (AUTOMATED)2023-03-20 16:23:43* Test Item Value Reference Range Interpretation Comme nts POCT GLU (test code = 2526219192) 261 mg/dL 70-110 H Lab Interpretation (test cod e = 55695-7) [facility] (NA, K, CL, CO2, GLUCOSE, BUN, CREATININE, CA)2023-03-20 13:25:00* Test Item Value Reference Range Interpretation Comme nts NA (test code = 7975222428) 136 mmol/L 135-145 K (test code = 9074219995) 4.5 mmol/L 3.5-5.0 CL (test code = 6162269007) 104 mmol/L 98-108 CO2 TOTAL (test code = 0355725669) 21 mmol/L 23-31 L AGAP (test code = 9278761296) 11 2-16 BUN (test code = 1868240875) 30 mg/dL 7-23 H GLUCOSE (test code = 0334919766) 238 mg/dL 70-110 H CREATININE (test code = 5353949681) 2.31 mg/dL 0.50-1.04 H CALCIUM (test code = 1022216083) 8.0 mg/dL 8.6-10.6 L eGFR (test code = 4582290705) 21.9 mL/min/1.73m2 CLARI (test code = CLARI) Association of [...] or abnormalities in imaging tests). Lab Interpretation (test code = 55222-1) [facility] (ALB,T.PRO,BILI T,BU/BC,ALT,AST,ALK PHOS)2023-03-20 13:25:00* Test Item Value Reference Range Interpretation Comme nts TOTAL BILI (test code = 5209124428) 1.5 mg/dL 0.1-1.1 H BILI UNCON (test code = 6304703409) 0.4 mg/dL 0.1-1.1 BILI CONJ (test code = 2589795659) 0.0 mg/dL 0.0-0.3 T PROTEIN (test code = 4650397582) 6.2 g/dL 6.3-8.2 L ALBUMIN (test code = 8911331664) 2.9 g/dL 3.5-5.0 L ALK PHOS (test code = 8127475072) 203 U/L 34-122 H ALTv (test code = 1742-6) 180 U/L 5-35 H AST(SGOT) (test code = 9434464656) 150 U/L 13-40 H Lab Interpretation (test cod e = 50733-1) Abnormal [facility] METABOLIC PANEL (NA, K, CL, CO2, GLUCOSE, BUN, CREATININE, CA)2023-03-20 13:25:00* Test Item Value Reference Range Interpretation Comme nts NA (test code = 7732560212) 136 mmol/L 135-145 K (test code = 7698385942) 4.5 mmol/L 3.5-5.0 CL (test code = 5326768195) 104 mmol/L 98-108 CO2 TOTAL (test code = 9665715396) 21 mmol/L 23-31 L AGAP (test code = 0605250080) 11 2-16 BUN (test code = 7123630567) 30 mg/dL 7-23 H GLUCOSE (test code = 5362080198) 238 mg/dL 70-110 H CREATININE (test code = 5916872373) 2.31 mg/dL 0.50-1.04 H CALCIUM (test code = 2446577231) 8.0 mg/dL 8.6-10.6 L eGFR (test code = 7445731201) 21.9 mL/min/1.73m2 CLARI (test code = CLARI) Association of [...] or abnormalities in imaging tests). Lab Interpretation (test code = 85378-1) [facility] (ALB,T.PRO,BILI T,BU/BC,ALT,AST,ALK PHOS)2023-03-20 13:25:00* Test Item Value Reference Range Interpretation Comme nts TOTAL BILI (test code = 8398991842) 1.5 mg/dL 0.1-1.1 H BILI UNCON (test code = 7023622403) 0.4 mg/dL 0.1-1.1 BILI CONJ (test code = 9440047195) 0.0 mg/dL 0.0-0.3 T PROTEIN (test code = 5742507959) 6.2 g/dL 6.3-8.2 L ALBUMIN (test code = 8259671589) 2.9 g/dL 3.5-5.0 L ALK PHOS (test code = 6538502015) 203 U/L 34-122 H ALTv (test code = 1742-6) 180 U/L 5-35 H AST(SGOT) (test code = 8580225360) 150 U/L 13-40 H Lab Interpretation (test cod e = 86489-0) Abnormal [facility] GLUCOSE (AUTOMATED)2023-03-20 12:28:37* Test Item Value Reference Range Interpretation Comme nts POCT GLU (test code = 3168037258) 208 mg/dL 70-110 H Lab Interpretation (test cod e = 18192-5) Abnormal [facility] GLUCOSE (AUTOMATED)2023-03-20 12:28:37* Test Item Value Reference Range Interpretation Comme nts POCT GLU (test code = 3772638422) 208 mg/dL 70-110 H Lab Interpretation (test cod e = 15793-8) Abnormal [facility] WITH [id number] 10:48:22* Test Item Value Reference Range Interpretation Comme nts WBC (test code = 6690-2) 10.96 See_Comment [Automated messa ge] The system which generated this result transmitted reference range: 4.30 - 11.10 10*3/?L. The reference range was not used to interpret this result as normal/abnormal. RBC (test code = 789-8) 2.87 See_Comment L [Automated messa ge] The system which generated this result transmitted reference range: 3.93 - 5.25 10*6/?L. The reference range was not used to interpret this result as normal/abnormal. HGB (test code = 718-7) 7.6 g/dL 11.6-15.0 L HCT (test code = 4544-3) 24.0 % 35.7-45.2 L MCV (test code = 787-2) 83.6 fL 80.6-95.5 MCH (test code = 785-6) 26.5 pg 25.9-32.8 MCHC (test code = 786-4) 31.7 g/dL 31.6-35.1 RDW-SD (test code = 93261-4) 43.3 fL 39.0-49.9 RDW-CV (test code = 788-0) 14.2 % 12.0-15.5 PLT (test code = 777-3) 307 See_Comment [Automated messa ge] The system which generated this result transmitted reference range: 166 - 358 10*3/?L. The reference range was not used to interpret this result as normal/abnormal. MPV (test code = 98670-1) 9.6 fL 9.5-12.9 NRBC/100 WBC (test code = 0029500070) 0.0 See_Comment [Automated [employer] ssage] The system which generated this result transmitted reference range: 0.0 - 10.0 /100 WBCs. The reference range was not used to interpret this result as normal/abnormal. NRBC x10^3 (test code = 8551575426) See_Comment [Automated messa ge] The system which generated this result transmitted reference range: 10*3/?L. The reference range was not used to interpret this result as normal/abnormal. GRAN MAT (NEUT) % (test code = 770-8) 81.3 % IMM GRAN % (test code = 3169773176) 0.60 % LYMPH % (test code = 736-9) 10.7 % MONO % (test code = 5905-5) 6.9 % EOS % (test code = 713-8) 0.1 % BASO % (test code = 706-2) 0.4 % GRAN MAT x10^3(ANC) (test code = 9915643678) 8.91 10*3/uL 1.88-7.09 H IMM GRAN x10^3 (test code = 3827259528) 0.07 10*3/uL 0.00-0.06 H LYMPH x10^3 (test code = 731-0) 1.17 10*3/uL 1.32-3.29 L MONO x10^3 (test code = 742-7) 0.76 10*3/uL 0.33-0.92 EOS x10^3 (test code = 711-2) 0.03-0.39 L BASO x10^3 (test code = 704-7) 0.04 10*3/uL 0.01-0.07 Lab Interpretation (test code = 98871-6) Abnormal [facility] WITH [id number] 10:48:22* Test Item Value Reference Range Interpretation Comme nts WBC (test code = 6690-2) 10.96 See_Comment [Automated messa ge] The system which generated this result transmitted reference range: 4.30 - 11.10 10*3/?L. The reference range was not used to interpret this result as normal/abnormal. RBC (test code = 789-8) 2.87 See_Comment L [Automated messa ge] The system which generated this result transmitted reference range: 3.93 - 5.25 10*6/?L. The reference range was not used to interpret this result as normal/abnormal. HGB (test code = 718-7) 7.6 g/dL 11.6-15.0 L HCT (test code = 4544-3) 24.0 % 35.7-45.2 L MCV (test code = 787-2) 83.6 fL 80.6-95.5 MCH (test code = 785-6) 26.5 pg 25.9-32.8 MCHC (test code = 786-4) 31.7 g/dL 31.6-35.1 RDW-SD (test code = 11941-2) 43.3 fL 39.0-49.9 RDW-CV (test code = 788-0) 14.2 % 12.0-15.5 PLT (test code = 777-3) 307 See_Comment [Automated messa ge] The system which generated this result transmitted reference range: 166 - 358 10*3/?L. The reference range was not used to interpret this result as normal/abnormal. MPV (test code = 63486-4) 9.6 fL 9.5-12.9 NRBC/100 WBC (test code = 3708520384) 0.0 See_Comment [Automated [employer] ssage] The system which generated this result transmitted reference range: 0.0 - 10.0 /100 WBCs. The reference range was not used to interpret this result as normal/abnormal. NRBC x10^3 (test code = 5309929765) See_Comment [Automated messa ge] The system which generated this result transmitted reference range: 10*3/?L. The reference range was not used to interpret this result as normal/abnormal. GRAN MAT (NEUT) % (test code = 770-8) 81.3 % IMM GRAN % (test code = 9973927601) 0.60 % LYMPH % (test code = 736-9) 10.7 % MONO % (test code = 5905-5) 6.9 % EOS % (test code = 713-8) 0.1 % BASO % (test code = 706-2) 0.4 % GRAN MAT x10^3(ANC) (test code = 3025905272) 8.91 10*3/uL 1.88-7.09 H IMM GRAN x10^3 (test code = 8272347897) 0.07 10*3/uL 0.00-0.06 H LYMPH x10^3 (test code = 731-0) 1.17 10*3/uL 1.32-3.29 L MONO x10^3 (test code = 742-7) 0.76 10*3/uL 0.33-0.92 EOS x10^3 (test code = 711-2) 0.03-0.39 L BASO x10^3 (test code = 704-7) 0.04 10*3/uL 0.01-0.07 Lab Interpretation (test code = 95117-1) Abnormal [facility] GLUCOSE (AUTOMATED)2023-03-20 10:17:51* Test Item Value Reference Range Interpretation Comme nts POCT GLU (test code = 0560765901) 249 mg/dL 70-110 H Lab Interpretation (test cod e = 46458-2) Abnormal [facility] GLUCOSE (AUTOMATED)2023-03-20 10:17:51* Test Item Value Reference Range Interpretation Comme nts POCT GLU (test code = 9599102243) 249 mg/dL 70-110 H Lab Interpretation (test cod e = 89719-5) Abnormal [facility] GLUCOSE (AUTOMATED)2023-03-20 06:39:06* Test Item Value Reference Range Interpretation Comme nts POCT GLU (test code = 0641259543) 296 mg/dL 70-110 H Lab Interpretation (test cod e = 44135-8) Abnormal [facility] GLUCOSE (AUTOMATED)2023-03-20 06:39:06* Test Item Value Reference Range Interpretation Comme nts POCT GLU (test code = 1613037538) 296 mg/dL 70-110 H Lab Interpretation (test cod e = 77776-1) Abnormal [facility] GLUCOSE (AUTOMATED)2023-03-20 02:12:39* Test Item Value Reference Range Interpretation Comme nts POCT GLU (test code = 0337368546) 295 mg/dL 70-110 H Lab Interpretation (test cod e = 21594-3) [facility] 02:12:39* Test Item Value Reference Range Interpretation Comme nts POCT GLU (test code = 6645182457) 295 mg/dL 70-110 H Lab Interpretation (test cod e = 85879-1) [facility] 23:06:42* Test Item Value Reference Range Interpretation Comme nts POCT GLU (test code = 2539713698) 273 mg/dL 70-110 H Lab Interpretation (test cod e = 38298-2) Abnormal [facility] GLUCOSE (AUTOMATED)2023-03-19 23:06:42* Test Item Value Reference Range Interpretation Comme nts POCT GLU (test code = 6783848761) 273 mg/dL 70-110 H Lab Interpretation (test cod e = 30463-6) [facility] 20:54:48* Test Item Value Reference Range Interpretation Comme nts POCT GLU (test code = 7652414803) 229 mg/dL 70-110 H Lab Interpretation (test cod e = 17033-2) [facility] 20:54:48* Test Item Value Reference Range Interpretation Comme nts POCT GLU (test code = 8656615316) 229 mg/dL 70-110 H Lab Interpretation (test cod e = 42831-4) [facility] 17:02:14* Test Item Value Reference Range Interpretation Comme nts POCT GLU (test code = 4314444573) 235 mg/dL 70-110 H Lab Interpretation (test cod e = 75962-3) Abnormal [facility] GLUCOSE (AUTOMATED)2023-03-19 17:02:14* Test Item Value Reference Range Interpretation Comme nts POCT GLU (test code = 9970437058) 235 mg/dL 70-110 H Lab Interpretation (test cod e = 66096-0) [facility] 12:30:34* Test Item Value Reference Range Interpretation Comme nts POCT GLU (test code = 5954174503) 129 mg/dL 70-110 H Lab Interpretation (test cod e = 73229-5) [facility] 12:30:34* Test Item Value Reference Range Interpretation Comme nts POCT GLU (test code = 8987281201) 129 mg/dL 70-110 H Lab Interpretation (test cod e = 58771-4) [facility]-19 09:37:30* Test Item Value Reference Range Interpretation Comme nts POCT GLU (test code = 0269824503) 127 mg/dL 70-110 H Lab Interpretation (test cod e = 86005-8) Abnormal [facility] GLUCOSE (AUTOMATED)2023-03-19 09:37:30* Test Item Value Reference Range Interpretation Comme nts POCT GLU (test code = 2206079310) 127 mg/dL 70-110 H Lab Interpretation (test cod e = 36622-5) [facility]19 05:15:00* Test Item Value Reference Range Interpretation Comme nts POCT GLU (test code = 8301558795) 251 mg/dL 70-110 H Lab Interpretation (test cod e = 72234-9) [facility]19 05:15:00* Test Item Value Reference Range Interpretation Comme nts POCT GLU (test code = 1306432756) 251 mg/dL 70-110 H Lab Interpretation (test cod e = 05583-5) [facility]19 01:10:02* Test Item Value Reference Range Interpretation Comme nts POCT GLU (test code = 5705595693) 146 mg/dL 70-110 H Lab Interpretation (test cod e = 87675-9) [facility] 01:10:02* Test Item Value Reference Range Interpretation Comme nts POCT GLU (test code = 1909537516) 146 mg/dL 70-110 H Lab Interpretation (test cod e = 93831-7) Abnormal [facility] GLUCOSE (AUTOMATED)2023-03-18 21:22:14* Test Item Value Reference Range Interpretation Comme nts POCT GLU (test code = 4592680299) 135 mg/dL 70-110 H Lab Interpretation (test cod e = 01488-2) Abnormal [facility] GLUCOSE (AUTOMATED)2023-03-18 21:22:14* Test Item Value Reference Range Interpretation Comme nts POCT GLU (test code = 5278306330) 135 mg/dL 70-110 H Lab Interpretation (test cod e = 95051-6) [facility] (ALB,T.PRO,BILI T,BU/BC,ALT,AST,ALK PHOS)2023-03-18 18:17:19* Test Item Value Reference Range Interpretation Comme nts TOTAL BILI (test code = 4664914448) 1.8 mg/dL 0.1-1.1 H BILI UNCON (test code = 7646557612) 0.8 mg/dL 0.1-1.1 BILI CONJ (test code = 9673125171) 0.0 mg/dL 0.0-0.3 T PROTEIN (test code = 0522090213) 5.9 g/dL 6.3-8.2 L ALBUMIN (test code = 3882395093) 2.9 g/dL 3.5-5.0 L ALK PHOS (test code = 8816340432) 176 U/L 34-122 H ALTv (test code = 1742-6) 168 U/L 5-35 H AST(SGOT) (test code = 0855861404) 384 U/L 13-40 H Lab Interpretation (test cod e = 62360-0) [facility]56545[facility] (ALB,T.PRO,BILI T,BU/BC,ALT,AST,ALK PHOS)2023-03-18 18:17:19* Test Item Value Reference Range Interpretation Comme nts TOTAL BILI (test code = 2674413016) 1.8 mg/dL 0.1-1.1 H BILI UNCON (test code = 1916746018) 0.8 mg/dL 0.1-1.1 BILI CONJ (test code = 8630837064) 0.0 mg/dL 0.0-0.3 T PROTEIN (test code = 9911821339) 5.9 g/dL 6.3-8.2 L ALBUMIN (test code = 9521963798) 2.9 g/dL 3.5-5.0 L ALK PHOS (test code = 5157498401) 176 U/L 34-122 H ALTv (test code = 1742-6) 168 U/L 5-35 H AST(SGOT) (test code = 2340926290) 384 U/L 13-40 H Lab Interpretation (test cod e = 24712-8) Abnormal [facility] GLUCOSE (AUTOMATED)2023-03-18 16:55:03* Test Item Value Reference Range Interpretation Comme nts POCT GLU (test code = 8848124377) 189 mg/dL 70-110 H Lab Interpretation (test cod e = 39191-8) Abnormal [facility] GLUCOSE (AUTOMATED)2023-03-18 16:55:03* Test Item Value Reference Range Interpretation Comme nts POCT GLU (test code = 6264644950) 189 mg/dL 70-110 H Lab Interpretation (test cod e = 77529-3) Abnormal [facility] GLUCOSE (AUTOMATED)2022-12-03 16:24:28* Test Item Value Reference Range Interpretation Comme nts POCT GLU (test code = 2388483951) 202 mg/dL 70-110 H Lab Interpretation (test cod e = 34614-3) Abnormal [facility] GLUCOSE (AUTOMATED)2022-12-03 13:04:24* Test Item Value Reference Range Interpretation Comme nts POCT GLU (test code = 0811716829) 93 mg/dL 70-110 Lab Interpretation (test cod e = 81842-0) Normal [facility] GLUCOSE (AUTOMATED)2022-12-03 02:05:53* Test Item Value Reference Range Interpretation Comme nts POCT GLU (test code = 7850622612) 279 mg/dL 70-110 H Lab Interpretation (test cod e = 28091-0) Abnormal [facility] GLUCOSE (AUTOMATED)2022-12-02 21:28:41* Test Item Value Reference Range Interpretation Comme nts POCT GLU (test code = 7107671798) 162 mg/dL 70-110 H Lab Interpretation (test cod e = 33839-1) Abnormal [facility] GLUCOSE (AUTOMATED)2022-12-02 16:57:12* Test Item Value Reference Range Interpretation Comme nts POCT GLU (test code = 6279889146) 141 mg/dL 70-110 H Lab Interpretation (test cod e = 31476-3) Abnormal [facility] GLUCOSE (AUTOMATED)2022-12-02 12:37:21* Test Item Value Reference Range Interpretation Comme nts POCT GLU (test code = 5776802827) 99 mg/dL 70-110 Lab Interpretation (test cod e = 10455-6) [facility] [id number] 04:35:59* Test Item Value Reference Range Interpretation Comme nts TROPONIN I (test code = 8415265689) 0.003 ng/mL <=0.034 CLARI (test code = CLARI) Reference (Normal) [...] patient's use of biotin. Lab Interpretation (test code = 12813-7) [id number] 04:34:23* Test Item Value Reference Range Interpretation Comme nts NT-proBNP (test code = 6784556199) 1490 pg/mL <=125 H CLARI (test code = CLARI) Biotin has been reported to cause a negative bias, interpret results relative to patient's use of biotin. Lab Interpretation (test code = 99223-9) Abnormal [facility]. METABOLIC PANEL (28787)2022-12-02 04:24:01* Test Item Value Reference Range Interpretation Comme nts NA (test code = 6342739298) 136 mmol/L 135-145 K (test code = 2866434445) 4.9 mmol/L 3.5-5.0 CL (test code = 5761424683) 103 mmol/L 98-108 CO2 TOTAL (test code = 5437034572) 26 mmol/L 23-31 AGAP (test code = 9882052170) 7 2-16 BUN (test code = 5714730882) 29 mg/dL 7-23 H GLUCOSE (test code = 3962182262) 85 mg/dL 70-110 CREATININE (test code = 1416477255) 1.44 mg/dL 0.50-1.04 H TOTAL BILI (test code = 8697609520) 0.6 mg/dL 0.1-1.1 CALCIUM (test code = 1229192964) 8.9 mg/dL 8.6-10.6 T PROTEIN (test code = 4871079464) 6.7 g/dL 6.3-8.2 ALBUMIN (test code = 4225522236) 3.6 g/dL 3.5-5.0 ALK PHOS (test code = 8629493645) 160 U/L 34-122 H ALTv (test code = 1742-6) 74 U/L 5-35 H AST(SGOT) (test code = 7551039795) 113 U/L 13-40 H eGFR (test code = 5625289948) 37.8 mL/min/1.73m2 CLARI (test code = CLARI) Association of [...] or abnormalities in imaging tests). Lab Interpretation (test code = 31281-5) Abnormal [facility] WITH [id number] 04:12:21* Test Item Value Reference Range Interpretation Comme nts WBC (test code = 6690-2) 11.93 See_Comment H [Automated [employer]] The system which generated this result transmitted reference range: 4.30 - 11.10 10*3/?L. The reference range was not used to interpret this result as normal/abnormal. RBC (test code = 789-8) 3.20 See_Comment L [Automated [employer]] The system which generated this result transmitted reference range: 3.93 - 5.25 10*6/?L. The reference range was not used to interpret this result as normal/abnormal. HGB (test code = 718-7) 8.6 g/dL 11.6-15.0 L HCT (test code = 4544-3) 28.0 % 35.7-45.2 L MCV (test code = 787-2) 87.5 fL 80.6-95.5 MCH (test code = 785-6) 26.9 pg 25.9-32.8 MCHC (test code = 786-4) 30.7 g/dL 31.6-35.1 L RDW-SD (test code = 05846-6) 41.0 fL 39.0-49.9 RDW-CV (test code = 788-0) 12.9 % 12.0-15.5 PLT (test code = 777-3) 385 See_Comment H [Automated [employer]] The system which generated this result transmitted reference range: 166 - 358 10*3/?L. The reference range was not used to interpret this result as normal/abnormal. MPV (test code = 50237-4) 9.9 fL 9.5-12.9 NRBC/100 WBC (test code = 6676794810) 0.0 See_Comment [Automated me ssage] The system which generated this result transmitted reference range: 0.0 - 10.0 /100 WBCs. The reference range was not used to interpret this result as normal/abnormal. NRBC x10^3 (test code = 5455672341) See_Comment [Automated messa ge] The system which generated this result transmitted reference range: 10*3/?L. The reference range was not used to interpret this result as normal/abnormal. GRAN MAT (NEUT) % (test code = 770-8) 53.7 % IMM GRAN % (test code = 6316253204) 0.50 % LYMPH % (test code = 736-9) 32.8 % MONO % (test code = 5905-5) 7.8 % EOS % (test code = 713-8) 3.8 % BASO % (test code = 706-2) 1.4 % GRAN MAT x10^3(ANC) (test code = 3415858037) 6.41 10*3/uL 1.88-7.09 IMM GRAN x10^3 (test code = 6710195508) 0.06 10*3/uL 0.00-0.06 LYMPH x10^3 (test code = 731-0) 3.91 10*3/uL 1.32-3.29 H MONO x10^3 (test code = 742-7) 0.93 10*3/uL 0.33-0.92 H EOS x10^3 (test code = 711-2) 0.45 10*3/uL 0.03-0.39 H BASO x10^3 (test code = 704-7) 0.17 10*3/uL 0.01-0.07 H Lab Interpretation (test code = 06820-7) [id number] 09:49:15* Test Item Value Reference Range Interpretation Comments TROPONIN I (test code = 8996772923) 0.017 ng/mL See_Comment [Automated message] The system which generated this result transmitted reference range: <=0.034. The reference range was not used to interpret this result as normal/abnormal. CLARI (test code = CLARI) Reference (Normal) [...] patient's use of biotin. Lab Interpretation (test code = 77747-5) Normal [facility]. METABOLIC PANEL (31137)2021-08-17 09:38:11* Test Item Value Reference Range Interpretation Comme nts NA (test code = 1540665834) 129 mmol/L 135-145 L K (test code = 6349828932) 4.4 mmol/L 3.5-5.0 CL (test code = 8844637636) 94 mmol/L 98-108 L CO2 TOTAL (test code = 0427487343) 25 mmol/L 23-31 AGAP (test code = 6557590128) 2-16 BUN (test code = 8211886530) 23 mg/dL 7-23 GLUCOSE (test code = 1667530664) 228 mg/dL 70-110 H CREATININE (test code = 4382800767) 1.26 mg/dL 0.50-1.04 H TOTAL BILI (test code = 8293409970) 0.8 mg/dL 0.1-1.1 CALCIUM (test code = 6413474548) 9.4 mg/dL 8.6-10.6 T PROTEIN (test code = 7795836120) 7.4 g/dL 6.3-8.2 ALBUMIN (test code = 6485531150) 3.7 g/dL 3.5-5.0 ALK PHOS (test code = 1492001445) 249 U/L 34-122 H ALTv (test code = 1742-6) 18 U/L 5-35 AST(SGOT) (test code = 9916868570) 35 U/L 13-40 eGFR (test code = 9259049072) mL/min/1.73m2 CLARI (test code = CLARI) Association of [...] or abnormalities in imaging tests). Lab Interpretation (test code = 27459-5) [facility]37:35* Test Item Value Reference Range Interpretation Comme nts LIPASE (test code = 0683008603) 142 U/L 0-220 Lab Interpretation (test cod e = 06948-0) [facility] [id number] 09:16:28* Test Item Value Reference Range Interpretation Comme nts WBC (test code = 6690-2) See_Comment [[employer]] The system which generated this result transmitted reference range: 4.30 - 11.10 10*3/?L. The reference range was not used to interpret this result as normal/abnormal. RBC (test code = 789-8) See_Comment [Automated [employer]] The system which generated this result transmitted reference range: 3.93 - 5.25 10*6/?L. The reference range was not used to interpret this result as normal/abnormal. HGB (test code = 718-7) 12.5 g/dL 11.6-15.0 HCT (test code = 4544-3) 37.4 % 35.7-45.2 MCV (test code = 787-2) 79.1 fL 80.6-95.5 L MCH (test code = 785-6) 26.4 pg 25.9-32.8 MCHC (test code = 786-4) 33.4 g/dL 31.6-35.1 RDW-SD (test code = 53042-5) 37.8 fL 39.0-49.9 L RDW-CV (test code = 788-0) 13.2 % 12.0-15.5 PLT (test code = 777-3) See_Comment H [Automated [employer]] The system which generated this result transmitted reference range: 166 - 358 10*3/?L. The reference range was not used to interpret this result as normal/abnormal. MPV (test code = 29958-0) 9.7 fL 9.5-12.9 NRBC/100 WBC (test code = 2927051744) See_Comment [Automated [employer] ssage] The system which generated this result transmitted reference range: 0.0 - 10.0 /100 WBCs. The reference range was not used to interpret this result as normal/abnormal. NRBC x10^3 (test code = 0676133544) <0.01 See_Comment [Automated messa ge] The system which generated this result transmitted reference range: 10*3/?L. The reference range was not used to interpret this result as normal/abnormal. GRAN MAT (NEUT) % (test code = 770-8) 65.3 % IMM GRAN % (test code = 7077812316) 0.30 % LYMPH % (test code = 736-9) 24.4 % MONO % (test code = 5905-5) 6.9 % EOS % (test code = 713-8) 1.8 % BASO % (test code = 706-2) 1.3 % GRAN MAT x10^3(ANC) (test code = 1453172212) 6.79 10*3/uL 1.88-7.09 IMM GRAN x10^3 (test code = 7350353863) 0.03 10*3/uL 0.00-0.06 LYMPH x10^3 (test code = 731-0) 2.54 10*3/uL 1.32-3.29 MONO x10^3 (test code = 742-7) 0.72 10*3/uL 0.33-0.92 EOS x10^3 (test code = 711-2) 0.19 10*3/uL 0.03-0.39 BASO x10^3 (test code = 704-7) 0.13 10*3/uL 0.01-0.07 H Lab Interpretation (test code = 81915-6) Abnormal [facility] METABOLIC PANEL (NA, K, CL, CO2, GLUCOSE, BUN, CREATININE, CA)2021-07-29 21:22:13* Test Item Value Reference Range Interpretation Comme nts NA (test code = 8562427370) 135 mmol/L 135-145 K (test code = 0635557233) 4.1 mmol/L 3.5-5.0 CL (test code = 8911679620) 101 mmol/L 98-108 CO2 TOTAL (test code = 5542009278) 29 mmol/L 23-31 AGAP (test code = 3368415458) 2-16 BUN (test code = 1836888828) 20 mg/dL 7-23 GLUCOSE (test code = 2443886616) 208 mg/dL 70-110 H CREATININE (test code = 6092407500) 1.39 mg/dL 0.50-1.04 H CALCIUM (test code = 1266647845) 8.1 mg/dL 8.6-10.6 L eGFR (test code = 4183744190) mL/min/1.73m2 CLARI (test code = CLARI) Association of [...] or abnormalities in imaging tests). Lab Interpretation (test code = 19885-0) Abnormal [facility] GLUCOSE (AUTOMATED)2021-07-29 19:42:24* Test Item Value Reference Range Interpretation Comme [facility] POCT GLU (test code = 8874746215) 305 mg/dL 70-110 H Lab Interpretation (test cod e = 73044-2) Abnormal [facility] GLUCOSE (AUTOMATED)2021-07-29 18:15:14* Test Item Value Reference Range Interpretation Comme [facility] POCT GLU (test code = 5230960175) 139 mg/dL 70-110 H Lab Interpretation (test cod e = 75117-9) Abnormal [facility] GLUCOSE (AUTOMATED)2021-07-29 16:02:50* Test Item Value Reference Range Interpretation Comme [facility] POCT GLU (test code = 1860477388) 150 mg/dL 70-110 H Lab Interpretation (test cod e = 22344-5) Abnormal [facility] METABOLIC PANEL (NA, K, CL, CO2, GLUCOSE, BUN, CREATININE, CA)2021-07-29 14:44:49* Test Item Value Reference Range Interpretation Comme nts NA (test code = 2228181117) 137 mmol/L 135-145 K (test code = 6912737413) 3.7 mmol/L 3.5-5.0 CL (test code = 3937592429) 100 mmol/L 98-108 CO2 TOTAL (test code = 8787414544) 32 mmol/L 23-31 H AGAP (test code = 9642363993) 2-16 BUN (test code = 0853819691) 22 mg/dL 7-23 GLUCOSE (test code = 8274292282) 70 mg/dL 70-110 CREATININE (test code = 0046743598) 1.44 mg/dL 0.50-1.04 H CALCIUM (test code = 1156327441) 8.4 mg/dL 8.6-10.6 L eGFR (test code = 2763386231) mL/min/1.73m2 CLARI (test code = CLARI) Association of [...] or abnormalities in imaging tests). Lab Interpretation (test code = 30558-2) [facility]* Test Item Value Reference Range Interpretation Comme nts MAGNESIUM (test code = 6475849314) 1.8 mg/dL 1.7-2.4 Lab Interpretation (test cod e = 01429-5) Normal [facility] GLUCOSE (AUTOMATED)2021-07-29 14:23:37* Test Item Value Reference Range Interpretation Comme nts POCT GLU (test code = 8325742991) 68 mg/dL 70-110 L Lab Interpretation (test cod e = 43549-5) Abnormal [facility] GLUCOSE (AUTOMATED)2021-07-29 14:09:04* Test Item Value Reference Range Interpretation Comme nts POCT GLU (test code = 3995437128) 69 mg/dL 70-110 L Lab Interpretation (test cod e = 31087-1) Abnormal [facility] GLUCOSE (AUTOMATED)2021-07-29 01:16:49* Test Item Value Reference Range Interpretation Comme nts POCT GLU (test code = 7304960749) 103 mg/dL 70-110 Lab Interpretation (test cod e = 19111-0) Normal [facility] GLUCOSE (AUTOMATED)2021-07-28 23:24:51* Test Item Value Reference Range Interpretation Comme nts POCT GLU (test code = 2939672297) 134 mg/dL 70-110 H Lab Interpretation (test cod e = 47438-4) Abnormal [facility] GLUCOSE (AUTOMATED)2021-07-28 18:51:28* Test Item Value Reference Range Interpretation Comme nts POCT GLU (test code = 0962905650) 276 mg/dL 70-110 H Lab Interpretation (test cod e = 74126-3) Abnormal [facility] GLUCOSE (AUTOMATED)2021-07-28 17:47:39* Test Item Value Reference Range Interpretation Comme nts POCT GLU (test code = 3132276569) 305 mg/dL 70-110 H Lab Interpretation (test cod e = 45176-6) Abnormal [facility] GLUCOSE (AUTOMATED)2021-07-28 16:53:19* Test Item Value Reference Range Interpretation Comme nts POCT GLU (test code = 0390160142) 276 mg/dL 70-110 H Lab Interpretation (test cod e = 35015-8) [facility]2021-[facility]-28 14:41:50* Test Item Value Reference Range Interpretation Comme nts POCT GLU (test code = 0268032504) 235 mg/dL 70-110 H Lab Interpretation (test cod e = 24176-2) [facility] 13:09:27* Test Item Value Reference Range Interpretation Comme nts MAGNESIUM (test code = 9132323972) 2.0 mg/dL 1.7-2.4 Lab Interpretation (test cod e = 57493-9) Normal [facility] METABOLIC PANEL (NA, K, CL, CO2, GLUCOSE, BUN, CREATININE, CA)2021-07-28 12:34:26* Test Item Value Reference Range Interpretation Comme nts NA (test code = 5830426808) 135 mmol/L 135-145 K (test code = 3350061975) 4.1 mmol/L 3.5-5.0 CL (test code = 2755685716) 98 mmol/L 98-108 CO2 TOTAL (test code = 9165370092) 32 mmol/L 23-31 H AGAP (test code = 6358793816) 2-16 BUN (test code = 2105634412) 18 mg/dL 7-23 GLUCOSE (test code = 8981142952) 229 mg/dL 70-110 H CREATININE (test code = 9146979997) 1.34 mg/dL 0.50-1.04 H CALCIUM (test code = 1983764633) 8.5 mg/dL 8.6-10.6 L eGFR (test code = 6997185975) mL/min/1.73m2 CLARI (test code = CLARI) Association of [...] or abnormalities in imaging tests). Lab Interpretation (test code = 25508-7) Abnormal [facility] WITH [id number] 11:44:23* Test Item Value Reference Range Interpretation Comme nts WBC (test code = 6690-2) See_Comment [FX Bridge] The system which generated this result transmitted reference range: 4.30 - 11.10 10*3/?L. The reference range was not used to interpret this result as normal/abnormal. RBC (test code = 789-8) See_Comment L [[employer]] The system which generated this result transmitted reference range: 3.93 - 5.25 10*6/?L. The reference range was not used to interpret this result as normal/abnormal. HGB (test code = 718-7) 10.0 g/dL 11.6-15.0 L HCT (test code = 4544-3) 31.6 % 35.7-45.2 L MCV (test code = 787-2) 84.3 fL 80.6-95.5 MCH (test code = 785-6) 26.7 pg 25.9-32.8 MCHC (test code = 786-4) 31.6 g/dL 31.6-35.1 RDW-SD (test code = 91901-9) 41.9 fL 39.0-49.9 RDW-CV (test code = 788-0) 13.6 % 12.0-15.5 PLT (test code = 777-3) See_Comment H [Automated messa ge] The system which generated this result transmitted reference range: 166 - 358 10*3/?L. The reference range was not used to interpret this result as normal/abnormal. MPV (test code = 80228-7) 8.8 fL 9.5-12.9 L NRBC/100 WBC (test code = 1542550071) See_Comment [Automated [employer] ssage] The system which generated this result transmitted reference range: 0.0 - 10.0 /100 WBCs. The reference range was not used to interpret this result as normal/abnormal. NRBC x10^3 (test code = 9141037813) <0.01 See_Comment [Automated messa ge] The system which generated this result transmitted reference range: 10*3/?L. The reference range was not used to interpret this result as normal/abnormal. GRAN MAT (NEUT) % (test code = 770-8) 64.4 % IMM GRAN % (test code = 6220324031) 0.40 % LYMPH % (test code = 736-9) 26.5 % MONO % (test code = 5905-5) 5.2 % EOS % (test code = 713-8) 2.8 % BASO % (test code = 706-2) 0.7 % GRAN MAT x10^3(ANC) (test code = 0771090433) 6.11 10*3/uL 1.88-7.09 IMM GRAN x10^3 (test code = 8923115595) 0.04 10*3/uL 0.00-0.06 LYMPH x10^3 (test code = 731-0) 2.52 10*3/uL 1.32-3.29 MONO x10^3 (test code = 742-7) 0.49 10*3/uL 0.33-0.92 EOS x10^3 (test code = 711-2) 0.27 10*3/uL 0.03-0.39 BASO x10^3 (test code = 704-7) 0.07 10*3/uL 0.01-0.07 Lab Interpretation (test code = 94404-6) Abnormal [facility] GLUCOSE (AUTOMATED)2021-07-28 00:38:01* Test Item Value Reference Range Interpretation Comme nts POCT GLU (test code = 0668089732) 210 mg/dL 70-110 H Lab Interpretation (test cod e = 82546-7) Abnormal [facility] GLUCOSE (AUTOMATED)2021-07-27 18:01:28* Test Item Value Reference Range Interpretation Comme nts POCT GLU (test code = 3155118389) 188 mg/dL 70-110 H Lab Interpretation (test cod e = 01843-4) [facility] [id number] 17:37:08* Test Item Value Reference Range Interpretation Comme nts CRP (test code = 6693681265) 2.7 mg/dL <0.8 H Lab Interpretation (test cod e = 74901-3) Abnormal [facility] GLUCOSE (AUTOMATED)2021-07-27 14:36:47* Test Item Value Reference Range Interpretation Comme nts POCT GLU (test code = 6542075335) 151 mg/dL 70-110 H Lab Interpretation (test cod e = 86615-4) [facility] [id number] 13:02:47* Test Item Value Reference Range Interpretation Comments TROPONIN I (test code = 8237746838) 0.414 ng/mL See_Comment H [Automated message] The system which generated this result transmitted reference range: <=0.034. The reference range was not used to interpret this result as normal/abnormal. CLARI (test code = CLARI) Reference (Normal) [...] patient's use of biotin. Lab Interpretation (test code = 15199-3) [facility] (NA, K, CL, CO2, GLUCOSE, BUN, CREATININE, CA)2021-07-27 12:44:03* Test Item Value Reference Range Interpretation Comme nts NA (test code = 9592916054) 134 mmol/L 135-145 L K (test code = 4698662416) 4.2 mmol/L 3.5-5.0 CL (test code = 6726546572) 101 mmol/L 98-108 CO2 TOTAL (test code = 9493756127) 28 mmol/L 23-31 AGAP (test code = 0770071004) 2-16 BUN (test code = 1293909708) 21 mg/dL 7-23 GLUCOSE (test code = 4876483910) 159 mg/dL 70-110 H CREATININE (test code = 7563246686) 1.02 mg/dL 0.50-1.04 CALCIUM (test code = 5169425834) 8.5 mg/dL 8.6-10.6 L eGFR (test code = 3666955742) mL/min/1.73m2 CLARI (test code = CLARI) Association of [...] or abnormalities in imaging tests). Lab Interpretation (test code = 16861-5) [facility] (33916[facility] (ALB,T.PRO,BILI T,BU/BC,ALT,AST,ALK PHOS)2021-07-27 12:44:03* Test Item Value Reference Range Interpretation Comme nts TOTAL BILI (test code = 0185288539) 0.5 mg/dL 0.1-1.1 BILI UNCON (test code = 4019518403) 0.2 mg/dL 0.1-1.1 BILI CONJ (test code = 3132552698) 0.0 mg/dL 0.0-0.3 T PROTEIN (test code = 8084321112) 6.4 g/dL 6.3-8.2 ALBUMIN (test code = 7905904298) 2.8 g/dL 3.5-5.0 L ALK PHOS (test code = 4664411718) 891 U/L 34-122 H ALTv (test code = 1742-6) 29 U/L 5-35 AST(SGOT) (test code = 1614731359) 36 U/L 13-40 Lab Interpretation (test cod e = 02560-9) [facility]normal [facility] HospitalCB with [id number] 11:55:37* Test Item Value Reference Range Interpretation Comme nts WBC (test code = 6690-2) See_Comment [Automated [employer] ge] The system which generated this result transmitted reference range: 4.30 - 11.10 10*3/?L. The reference range was not used to interpret this result as normal/abnormal. RBC (test code = 789-8) See_Comment L [Automated messa ge] The system which generated this result transmitted reference range: 3.93 - 5.25 10*6/?L. The reference range was not used to interpret this result as normal/abnormal. HGB (test code = 718-7) 9.2 g/dL 11.6-15.0 L HCT (test code = 4544-3) 28.7 % 35.7-45.2 L MCV (test code = 787-2) 84.2 fL 80.6-95.5 MCH (test code = 785-6) 27.0 pg 25.9-32.8 MCHC (test code = 786-4) 32.1 g/dL 31.6-35.1 RDW-SD (test code = 68883-6) 42.1 fL 39.0-49.9 RDW-CV (test code = 788-0) 13.7 % 12.0-15.5 PLT (test code = 777-3) See_Comment H [Automated messa ge] The system which generated this result transmitted reference range: 166 - 358 10*3/?L. The reference range was not used to interpret this result as normal/abnormal. MPV (test code = 65928-3) 8.9 fL 9.5-12.9 L NRBC/100 WBC (test code = 3002638311) See_Comment [Automated [employer] ssage] The system which generated this result transmitted reference range: 0.0 - 10.0 /100 WBCs. The reference range was not used to interpret this result as normal/abnormal. NRBC x10^3 (test code = 0601188304) <0.01 See_Comment [Automated messa ge] The system which generated this result transmitted reference range: 10*3/?L. The reference range was not used to interpret this result as normal/abnormal. GRAN MAT (NEUT) % (test code = 770-8) 63.0 % IMM GRAN % (test code = 1477344721) 0.20 % LYMPH % (test code = 736-9) 28.1 % MONO % (test code = 5905-5) 6.3 % EOS % (test code = 713-8) 1.9 % BASO % (test code = 706-2) 0.5 % GRAN MAT x10^3(ANC) (test code = 8418098112) 5.17 10*3/uL 1.88-7.09 IMM GRAN x10^3 (test code = 9523669706) <0.03 0.00-0.06 LYMPH x10^3 (test code = 731-0) 2.31 10*3/uL 1.32-3.29 MONO x10^3 (test code = 742-7) 0.52 10*3/uL 0.33-0.92 EOS x10^3 (test code = 711-2) 0.16 10*3/uL 0.03-0.39 BASO x10^3 (test code = 704-7) 0.04 10*3/uL 0.01-0.07 Lab Interpretation (test code = 46425-4) [facility]2021-[facility]-27 05:22:11* Test Item Value Reference Range Interpretation Comme nts POCT GLU (test code = 0818439556) 206 mg/dL 70-110 H Lab Interpretation (test cod e = 89069-1) [facility]normal [facility] HospitalMAGNESIUM2021-12-29 03:27:22* Test Item Value Reference Range Interpretation Comme nts MAGNESIUM (test code = 6516570628) 1.7 mg/dL 1.7-2.4 Lab Interpretation (test cod e = 21667-8) Normal [facility] HospitalFERRITIN [id number] 03:02:19* Test Item Value Reference Range Interpretation Comme nts FERRITIN (test code = 4970517000) 225.0 ng/mL 11.0-264.0 CLARI (test code = CLARI) Biotin has been reported to cause a negative bias, interpret results relative to patient's use of biotin. Lab Interpretation (test code = 24614-7) Normal [facility] HospitalPROCALCITONIN2021-12-29 02:53:39* Test Item Value Reference Range Interpretation Comme nts Procalcitonin (test code = 3230735621) 0.03 ng/mL <0.07 CLARI (test code = CLARI) INTERPRETATION OF [...] lung abscess/empyema. For further information please refer to:[email or web address] Lab Interpretation (test code = 46579-9) Normal [facility] HospitalTROPONIN [id number] 02:35:15* Test Item Value Reference Range Interpretation Comments TROPONIN I (test code = 2387784658) 0.424 ng/mL See_Comment H [Automated message] The system which generated this result transmitted reference range: <=0.034. The reference range was not used to interpret this result as normal/abnormal. CLARI (test code = CLARI) Reference (Normal) [...] patient's use of biotin. Lab Interpretation (test code = 34101-6) [facility]normal [facility] HospitalLACTATE [id number] 02:19:52* Test Item Value Reference Range Interpretation Comme nts LDH (test code = 9024478953) 677 U/L 300-600 H Lab Interpretation (test cod e = 36916-0) [facility]normal [facility] HospitalaPTT2021-12-29 02:11:38* Test Item Value Reference Range Interpretation Comme nts APTT Patient (test code = 3173-2) See_Comment H [Automated messa ge] The system which generated this result transmitted reference range: 26 - 36 Seconds. The reference range was not used to interpret this result as normal/abnormal. Lab Interpretation (test code = 46690-6) [facility]normal [facility] HospitalD-[id number] 02:11:38* Test Item Value Reference Range Interpretation Comments D-DIMER (test code = 1051096245) See_Comment H [Automated message] The system which generated this result transmitted reference range: <0.50 ?g/mL (FEU). The reference range was not used to interpret this result as normal/abnormal. CLARI (test code = CLARI) This test may be used in conjunction with a clinical pretest [...] context, in forming a diagnosis. Lab Interpretation (test code = 25051-1) [facility]normal [facility] HospitalProthrombin Time / [id number] 02:11:37* Test Item Value Reference Range Interpretation Comme nts PROTIME PATIENT (test code = 5964-2) See_Comment [Automated [employer]] The system which generated this result transmitted reference range: 10.1 - 12.6 Seconds. The reference range was not used to interpret this result as normal/abnormal. INR (test code = 6301-6) Normal INR <1.1; Warfarin Therapeutic range 2.0 to 3.0 or 2.5 to 3.5, depending upon the indications. Lab Interpretation (test code = 99823-3) Normal [facility] HospitalVITAMIN B12, [id number] 02:08:35* Test Item Value Reference Range Interpretation Comme nts VIT B12 (test code = 1935338366) 821 pg/mL 240-930 CLARI (test code = CLARI) Biotin has been reported to cause a positive bias, interpret results relative to patient's use of biotin. Lab Interpretation (test code = 83064-7) Normal [facility] HospitalETHANOL2021-12-29 01:20:19* Test Item Value Reference Range Interpretation Comme nts ALCOHOL (test code = 0153134097) <10 mg/dL CLARI (test code = CLARI) Toxic Greater than or equal to 80 mg/dL. NOTE: Whole blood values are approximately 10% to 15% lower than serum and plasma. [facility] HospitalLIPID PANEL (05918)(TOTAL CHOLESTEROL, TRIGLYCERIDES, HDL)2021-07-27 01:17:48* Test Item Value Reference Range Interpretation Comme nts CHOL (test code = 7839747256) 202 mg/dL 120-200 H HDL (test code = 6953459422) 63 mg/dL >50 HDLC RATIO (test code = 5844057571) See_Comment [Automated messa ge] The system which generated this result transmitted reference range: <=4.5. The reference range was not used to interpret this result as normal/abnormal. TRIG (test code = 2865043952) 132 mg/dL 30-170 LDL CHOL (test code = 36280-7) 113 mg/dL See_Comment [Automated messa ge] The system which generated this result transmitted reference range: <=160. The reference range was not used to interpret this result as normal/abnormal. VLDL (test code = 1478782137) 26 mg/dL 5-60 Lab Interpretation (test code = 65786-7) [facility]normal [facility] HospitalGLYCOSYLATED HEMOGLOBIN (A1C)2021-07-26 21:04:12* Test Item Value Reference Range Interpretation Comme nts HGB A1C (test code = 4548-4) 13.3 % 4.0-5.7 H CLARI (test code = CLARI) Reference RangesNormal: <5.7%Prediabetes: 5.7 - 6.4%Diabetes: > 6.5% Lab Interpretation (test code = 87242-7) Abnormal [facility] [id number] 20:26:42* Test Item Value Reference Range Interpretation Comme nts FREE T3 (test code = 0498582335) 2.76 pg/mL 2.77-5.27 L Lab Interpretation (test cod e = 32896-4) [facility]normal [facility] HospitalTHYROID STIMULATING [id number] 19:56:38 * Test Item Value Reference Range Interpretation Comme nts TSH (test code = 1174398576) See_Comment H [Automated messa ge] The system which generated this result transmitted reference range: 0.45 - 4.70 mIU/L. The reference range was not used to interpret this result as normal/abnormal. Lab Interpretation (test code = 31544-1) Abnormal [facility] [id number] 19:43:13* Test Item Value Reference Range Interpretation Comme nts FREE T4 (test code = 1658845238) See_Comment [Automated messa ge] The system which generated this result transmitted reference range: 0.78 - 2.20 ng/dL:. The reference range was not used to interpret this result as normal/abnormal. Lab Interpretation (test code = 75513-7) Normal [facility] HospitalTROPONIN [id number] 19:38:10* Test Item Value Reference Range Interpretation Comments TROPONIN I (test code = 3721857746) 0.518 ng/mL See_Comment H [Automated message] The system which generated this result transmitted reference range: <=0.034. The reference range was not used to interpret this result as normal/abnormal. CLARI (test code = CLARI) Reference (Normal) [...] patient's use of biotin. Lab Interpretation (test code = 27791-1) [facility]normal [facility] HospitalN-TERMINAL [id number] 19:38:10* Test Item Value Reference Range Interpretation Comme nts NT-proBNP (test code = 1792937508) 2180 pg/mL See_Comment H [Automated message] The system which generated this result transmitted reference range: <=125. The reference range was not used to interpret this result as normal/abnormal. CLARI (test code = CLARI) Biotin has been reported to cause a negative bias, interpret results relative to patient's use of biotin. Lab Interpretation (test code = 64817-3) [facility]normal [facility] HospitalCOMP. METABOLIC PANEL (01742)2021-07-26 19:27:30* Test Item Value Reference Range Interpretation Comme nts NA (test code = 4041602183) 133 mmol/L 135-145 L K (test code = 1101547800) 5.1 mmol/L 3.5-5.0 H CL (test code = 8611733184) 99 mmol/L 98-108 CO2 TOTAL (test code = 5925891768) 28 mmol/L 23-31 AGAP (test code = 6498545336) 2-16 BUN (test code = 7818247308) 20 mg/dL 7-23 GLUCOSE (test code = 3546516802) 169 mg/dL 70-110 H CREATININE (test code = 3462028961) 0.99 mg/dL 0.50-1.04 TOTAL BILI (test code = 6197050432) 0.5 mg/dL 0.1-1.1 CALCIUM (test code = 0438753679) 8.8 mg/dL 8.6-10.6 T PROTEIN (test code = 3819856475) 6.6 g/dL 6.3-8.2 ALBUMIN (test code = 3987454321) 3.1 g/dL 3.5-5.0 L ALK PHOS (test code = 2108570307) 1212 U/L 34-122 H ALTv (test code = 1742-6) 39 U/L 5-35 H AST(SGOT) (test code = 1948630213) 42 U/L 13-40 H eGFR (test code = 3975657112) mL/min/1.73m2 CLARI (test code = CLARI) Association of [...] or abnormalities in imaging tests). Lab Interpretation (test code = 30550-8) [facility] HospitalLIPASE2021-12-28 19:27:30* Test Item Value Reference Range Interpretation Comme nts LIPASE (test code = 4009696353) 135 U/L 0-220 Lab Interpretation (test cod e = 89813-4) Normal [facility] HospitalCBC WITH [id number] 19:18:50* Test Item Value Reference Range Interpretation Comme nts WBC (test code = 6690-2) See_Comment [Automated [employer] ge] The system which generated this result transmitted reference range: 4.30 - 11.10 10*3/?L. The reference range was not used to interpret this result as normal/abnormal. RBC (test code = 789-8) See_Comment [Automated messa ge] The system which generated this result transmitted reference range: 3.93 - 5.25 10*6/?L. The reference range was not used to interpret this result as normal/abnormal. HGB (test code = 718-7) 10.7 g/dL 11.6-15.0 L HCT (test code = 4544-3) 32.8 % 35.7-45.2 L MCV (test code = 787-2) 82.4 fL 80.6-95.5 MCH (test code = 785-6) 26.9 pg 25.9-32.8 MCHC (test code = 786-4) 32.6 g/dL 31.6-35.1 RDW-SD (test code = 54133-2) 41.1 fL 39.0-49.9 RDW-CV (test code = 788-0) 13.6 % 12.0-15.5 PLT (test code = 777-3) See_Comment H [Automated messa ge] The system which generated this result transmitted reference range: 166 - 358 10*3/?L. The reference range was not used to interpret this result as normal/abnormal. MPV (test code = 21013-8) 8.9 fL 9.5-12.9 L NRBC/100 WBC (test code = 0101287189) See_Comment [Automated me ssage] The system which generated this result transmitted reference range: 0.0 - 10.0 /100 WBCs. The reference range was not used to interpret this result as normal/abnormal. NRBC x10^3 (test code = 4971969351) <0.01 See_Comment [Automated messa ge] The system which generated this result transmitted reference range: 10*3/?L. The reference range was not used to interpret this result as normal/abnormal. GRAN MAT (NEUT) % (test code = 770-8) 68.5 % IMM GRAN % (test code = 7165854843) 0.40 % LYMPH % (test code = 736-9) 23.3 % MONO % (test code = 5905-5) 5.7 % EOS % (test code = 713-8) 1.4 % BASO % (test code = 706-2) 0.7 % GRAN MAT x10^3(ANC) (test code = 4327058381) 5.69 10*3/uL 1.88-7.09 IMM GRAN x10^3 (test code = 3075088359) 0.03 10*3/uL 0.00-0.06 LYMPH x10^3 (test code = 731-0) 1.93 10*3/uL 1.32-3.29 MONO x10^3 (test code = 742-7) 0.47 10*3/uL 0.33-0.92 EOS x10^3 (test code = 711-2) 0.12 10*3/uL 0.03-0.39 BASO x10^3 (test code = 704-7) 0.06 10*3/uL 0.01-0.07 Lab Interpretation (test code = 40157-0) [facility]normal [facility] HospitalHEMOGLOBIN [id number] 00:00:00* Test Item Value Reference Range Interpretation Comme nts HEMOGLOBIN A1c (test code = 34256) 14.3 % Serafin Caldera AustinHEMOGLOBIN [id number] 00:00:00* Test Item Value Reference Range Interpretation Comme nts HEMOGLOBIN A1c (test code = 37804) 14.3 % Serafin Caldera AustinHEMOGLOBIN [id number] 00:00:00* Test Item Value Reference Range Interpretation Comme nts HEMOGLOBIN A1c (test code = 23459) 14.3 % Serafin Caldera AustinHEMOGLOBIN [id number] 00:00:00* Test Item Value Reference Range Interpretation Comme nts HEMOGLOBIN A1c (test code = 01626) 14.3 % Serafin Caldera AustinHEMOGLOBIN [id number] 00:00:00* Test Item Value Reference Range Interpretation Comme nts HEMOGLOBIN A1c (test code = 64338) 14.3 % Serafin Caldera AustinHEMOGLOBIN [id number] 00:00:00* Test Item Value Reference Range Interpretation Comme nts HEMOGLOBIN A1c (test code = 37551) 14.3 % Serafin Caldera AustinPAP TEST, THINPREP, [id number] 00:00:00* Test Item Value Reference Range Interpretation Comme nts SOURCE: (test code = 8001) Cervical/Endocervical SLIDES: (test code = 8011) 1 LMP: (test code = 8021) SEE NOTE SPECIMEN ADEQUACY: (test code = 66973) (NOTE) INTERPRETATION: (test code = 57767) NILM/NO EPITH. ABNORMALITY;SEE BELOW OTHER COMMENTS: (test code = 8081) (NOTE) SHREDDER TENDER: (test code = 8101) MARLON BASSETT(ASCP)IAC LOCATION: (test code = 04902) (NOTE) CPT: (test code = 8140) (NOTE) Serafin Caldera AustinHPV HIGH RISK WITH GENOTYPE, [id number] 00:00:00* Test Item Value Reference Range Interpretation Comme nts HPV HIGH RISK INTERP (test c ode = 23096) NEGATIVE HPV 16 (test code = 26130) NEGATIVE HPV 18 (test code = 29947) NEGATIVE HPV, HR, OTHER GENOTYPES (te st code = 25644) NEGATIVE Serafin Caldera AustinPAP TEST, THINPREP, [id number] 00:00:00* Test Item Value Reference Range Interpretation Comme nts SOURCE: (test code = 8001) Cervical/Endocervical SLIDES: (test code = 8011) 1 LMP: (test code = 8021) SEE NOTE SPECIMEN ADEQUACY: (test code = 61925) (NOTE) INTERPRETATION: (test code = 76510) NILM/NO EPITH. ABNORMALITY;SEE BELOW OTHER COMMENTS: (test code = 8081) (NOTE) SHREDDER TENDER: (test code = 8101) DARREL MOTARI(ASCP)IAC LOCATION: (test code = 19060) (NOTE) CPT: (test code = 8140) (NOTE) Serafin Caldera AustinHPV HIGH RISK WITH GENOTYPE, [id number] 00:00:00* Test Item Value Reference Range Interpretation Comme nts HPV HIGH RISK INTERP (test c ode = 93681) NEGATIVE HPV 16 (test code = 87010) NEGATIVE HPV 18 (test code = 62808) NEGATIVE HPV, HR, OTHER GENOTYPES (te st code = 27790) NEGATIVE Serafin Caldera AustinPAP TEST, THINPREP, [id number] 00:00:00* Test Item Value Reference Range Interpretation Comme nts SOURCE: (test code = 8001) Cervical/Endocervical SLIDES: (test code = 8011) 1 LMP: (test code = 8021) SEE NOTE SPECIMEN ADEQUACY: (test code = 89009) (NOTE) INTERPRETATION: (test code = 16799) NILM/NO EPITH. ABNORMALITY;SEE BELOW OTHER COMMENTS: (test code = 8081) (NOTE) SHREDDER TENDER: (test code = 8101) MARLON BASSETT(ASCP)IAC LOCATION: (test code = 10622) (NOTE) CPT: (test code = 8140) (NOTE) Serafin Caldera AustinHPV HIGH RISK WITH GENOTYPE, [id number] 00:00:00* Test Item Value Reference Range Interpretation Comme nts HPV HIGH RISK INTERP (test c ode = 24269) NEGATIVE HPV 16 (test code = 41469) NEGATIVE HPV 18 (test code = 02990) NEGATIVE HPV, HR, OTHER GENOTYPES (te st code = 94557) NEGATIVE Serafin F AustinPAP TEST, THINPREP, [id number] 00:00:00* Test Item Value Reference Range Interpretation Comme nts SOURCE: (test code = 8001) Cervical/Endocervical SLIDES: (test code = 8011) 1 LMP: (test code = 8021) SEE NOTE SPECIMEN ADEQUACY: (test code = 85660) (NOTE) INTERPRETATION: (test code = 29699) NILM/NO EPITH. ABNORMALITY;SEE BELOW OTHER COMMENTS: (test code = 8081) (NOTE) SHREDDER TENDER: (test code = 8101) MARLON BASSETT(ASCP)IAC LOCATION: (test code = 57972) (NOTE) CPT: (test code = 8140) (NOTE) Serafin Caldera AustinHPV HIGH RISK WITH GENOTYPE, [id number] 00:00:00* Test Item Value Reference Range Interpretation Comme nts HPV HIGH RISK INTERP (test c ode = 14007) NEGATIVE HPV 16 (test code = 03188) NEGATIVE HPV 18 (test code = 37450) NEGATIVE HPV, HR, OTHER GENOTYPES (te st code = 12681) NEGATIVE Serafin Caldera AustinPAP TEST, THINPREP, [id number] 00:00:00* Test Item Value Reference Range Interpretation Comme nts SOURCE: (test code = 8001) Cervical/Endocervical SLIDES: (test code = 8011) 1 LMP: (test code = 8021) SEE NOTE SPECIMEN ADEQUACY: (test code = 55766) (NOTE) INTERPRETATION: (test code = 23825) NILM/NO EPITH. ABNORMALITY;SEE BELOW OTHER COMMENTS: (test code = 8081) (NOTE) SHREDDER TENDER: (test code = 8101) MARLON BASSETT(ASCP)IAC LOCATION: (test code = 50638) (NOTE) CPT: (test code = 8140) (NOTE) Serafin Caldera AustinHPV HIGH RISK WITH GENOTYPE, [id number] 00:00:00* Test Item Value Reference Range Interpretation Comme nts HPV HIGH RISK INTERP (test c ode = 84000) NEGATIVE HPV 16 (test code = 45832) NEGATIVE HPV 18 (test code = 93387) NEGATIVE HPV, HR, OTHER GENOTYPES (te st code = 69294) NEGATIVE Serafin F AustinPAP TEST, THINPREP, [id number] 00:00:00* Test Item Value Reference Range Interpretation Comme nts SOURCE: (test code = 8001) Cervical/Endocervical SLIDES: (test code = 8011) 1 LMP: (test code = 8021) SEE NOTE SPECIMEN ADEQUACY: (test code = 36590) (NOTE) INTERPRETATION: (test code = 08683) NILM/NO EPITH. ABNORMALITY;SEE BELOW OTHER COMMENTS: (test code = 8081) (NOTE) SHREDDER TENDER: (test code = 8101) MARLON BASSETT(ASCP)IAC LOCATION: (test code = 35303) (NOTE) CPT: (test code = 8140) (NOTE) Serafin GaytanHPV HIGH RISK WITH GENOTYPE, [id number] 00:00:00* Test Item Value Reference Range Interpretation Comme nts HPV HIGH RISK INTERP (test c ode = 21049) NEGATIVE HPV 16 (test code = 25592) NEGATIVE HPV 18 (test code = 39237) NEGATIVE HPV, HR, OTHER GENOTYPES (te st code = 09401) NEGATIVE Serafin GaytanGC, AMPLIFIED, [id number] 00:00:00* Test Item Value Reference Range Interpretation Comme nts GONORRHEA, NAAT (test code = 88707) NEGATIVE Serafin [id number] 00:00:00* Test Item Value Reference Range Interpretation Comme nts RPR RESULT (test code = 3501) NON-REACTIVE RPR TITER (test code = 3500) NOT INDIC. TITER Serafin GaytanTRICHOMONAS, URINE, [id number] 00:00:00* Test Item Value Reference Range Interpretation Comme nts TRICHOMONAS, NAAT (test code = 93582) NEGATIVE Serafin GaytanHIV AB/AG COMBO RFLX [id number] 00:00:00* Test Item Value Reference Range Interpretation Comme nts HIV 1/2 4TH GEN, RFLX CONF ( test code = 3514) NON-REACTIVE Serafin GaytanACUTE HEPATITIS [id number] 00:00:00* Test Item Value Reference Range Interpretation Comme nts HEPATITIS A IgM (test code = 60165) NON-REACTIVE HEPATITIS B CORE IgM (test c ode = 4644) NON-REACTIVE HEPATITIS B SURF AG (test co de = 2739) NON-REACTIVE HEPATITIS C ANTIBODY (test c ode = 4620) NON-REACTIVE INTERPRETATION HEPATITIS A: (test code = 2552) (NOTE) INTERPRETATION HEPATITIS B: (test code = 35657) (NOTE) INTERPRETATION HEPATITIS C: (test code = 72872) (NOTE) Serafin GaytanCHLAMYDIA, AMPLIFIED, [id number] 00:00:00* Test Item Value Reference Range Interpretation Comme nts CHLAMYDIA, NAAT (test code = 34246) NEGATIVE Serafin GaytanGC, AMPLIFIED, [id number] 00:00:00* Test Item Value Reference Range Interpretation Comme nts GONORRHEA, NAAT (test code = 21065) NEGATIVE Serafin Caldera [id number] 00:00:00* Test Item Value Reference Range Interpretation Comme nts RPR RESULT (test code = 3501) NON-REACTIVE RPR TITER (test code = 3500) NOT INDIC. TITER Serafin GaytanTRICHOMONAS, URINE, [id number] 00:00:00* Test Item Value Reference Range Interpretation Comme nts TRICHOMONAS, NAAT (test code = 10027) NEGATIVE Serafin GaytanHIV AB/AG COMBO RFLX [id number] 00:00:00* Test Item Value Reference Range Interpretation Comme nts HIV 1/2 4TH GEN, RFLX CONF ( test code = 3514) NON-REACTIVE Serafin GaytanACUTE HEPATITIS [id number] 00:00:00* Test Item Value Reference Range Interpretation Comme nts HEPATITIS A IgM (test code = 81521) NON-REACTIVE HEPATITIS B CORE IgM (test c ode = 4644) NON-REACTIVE HEPATITIS B SURF AG (test co de = 2739) NON-REACTIVE HEPATITIS C ANTIBODY (test c ode = 4675) NON-REACTIVE INTERPRETATION HEPATITIS A: (test code = 2552) (NOTE) INTERPRETATION HEPATITIS B: (test code = 64333) (NOTE) INTERPRETATION HEPATITIS C: (test code = 29087) (NOTE) Serafin GaytanCHLAMYDIA, AMPLIFIED, [id number] 00:00:00* Test Item Value Reference Range Interpretation Comme nts CHLAMYDIA, NAAT (test code = 05419) NEGATIVE Serafin GaytanGC, AMPLIFIED, [id number] 00:00:00* Test Item Value Reference Range Interpretation Comme nts GONORRHEA, NAAT (test code = 92081) NEGATIVE Serafin [id number] 00:00:00* Test Item Value Reference Range Interpretation Comme nts RPR RESULT (test code = 3501) NON-REACTIVE RPR TITER (test code = 3500) NOT INDIC. TITER Serafin GaytanTRICHOMONAS, URINE, [id number] 00:00:00* Test Item Value Reference Range Interpretation Comme nts TRICHOMONAS, NAAT (test code = 51575) NEGATIVE Serafin GaytanHIV AB/AG COMBO RFLX [id number] 00:00:00* Test Item Value Reference Range Interpretation Comme nts HIV 1/2 4TH GEN, RFLX CONF ( test code = 3514) NON-REACTIVE Serafin GaytanACUTE HEPATITIS [id number] 00:00:00* Test Item Value Reference Range Interpretation Comme nts HEPATITIS A IgM (test code = 08908) NON-REACTIVE HEPATITIS B CORE IgM (test c ode = 4644) NON-REACTIVE HEPATITIS B SURF AG (test co de = 2739) NON-REACTIVE HEPATITIS C ANTIBODY (test c ode = 4675) NON-REACTIVE INTERPRETATION HEPATITIS A: (test code = 2552) (NOTE) INTERPRETATION HEPATITIS B: (test code = 41503) (NOTE) INTERPRETATION HEPATITIS C: (test code = 27549) (NOTE) Serafin GaytanCHLAMYDIA, AMPLIFIED, [id number] 00:00:00* Test Item Value Reference Range Interpretation Comme nts CHLAMYDIA, NAAT (test code = 80124) NEGATIVE Serafin GaytanGC, AMPLIFIED, [id number] 00:00:00* Test Item Value Reference Range Interpretation Comme nts GONORRHEA, NAAT (test code = 91771) NEGATIVE Serafin [id number] 00:00:00* Test Item Value Reference Range Interpretation Comme nts RPR RESULT (test code = 3501) NON-REACTIVE RPR TITER (test code = 3500) NOT INDIC. TITER Serafin GaytanTRICHOMONAS, URINE, [id number] 00:00:00* Test Item Value Reference Range Interpretation Comme nts TRICHOMONAS, NAAT (test code = 59631) NEGATIVE Serafin GaytanHIV AB/AG COMBO RFLX [id number] 00:00:00* Test Item Value Reference Range Interpretation Comme nts HIV 1/2 4TH GEN, RFLX CONF ( test code = 3514) NON-REACTIVE Serafin GaytanACUTE HEPATITIS [id number] 00:00:00* Test Item Value Reference Range Interpretation Comme nts HEPATITIS A IgM (test code = 09237) NON-REACTIVE HEPATITIS B CORE IgM (test c ode = 4644) NON-REACTIVE HEPATITIS B SURF AG (test co de = 2739) NON-REACTIVE HEPATITIS C ANTIBODY (test c ode = 4675) NON-REACTIVE INTERPRETATION HEPATITIS A: (test code = 2552) (NOTE) INTERPRETATION HEPATITIS B: (test code = 94444) (NOTE) INTERPRETATION HEPATITIS C: (test code = 79465) (NOTE) Serafin GaytanCHLAMYDIA, AMPLIFIED, [id number] 00:00:00* Test Item Value Reference Range Interpretation Comme nts CHLAMYDIA, NAAT (test code = 67465) NEGATIVE Serafin GaytanGC, AMPLIFIED, [id number] 00:00:00* Test Item Value Reference Range Interpretation Comme nts GONORRHEA, NAAT (test code = 65932) NEGATIVE Serafin [id number] 00:00:00* Test Item Value Reference Range Interpretation Comme nts RPR RESULT (test code = 3501) NON-REACTIVE RPR TITER (test code = 3500) NOT INDIC. TITER Serafin GaytanTRICHOMONAS, URINE, [id number] 00:00:00* Test Item Value Reference Range Interpretation Comme nts TRICHOMONAS, NAAT (test code = 17466) NEGATIVE Serafin GaytanHIV AB/AG COMBO RFLX [id number] 00:00:00* Test Item Value Reference Range Interpretation Comme nts HIV 1/2 4TH GEN, RFLX CONF ( test code = 3514) NON-REACTIVE Serafin GaytanACUTE HEPATITIS [id number] 00:00:00* Test Item Value Reference Range Interpretation Comme nts HEPATITIS A IgM (test code = 21190) NON-REACTIVE HEPATITIS B CORE IgM (test c ode = 4644) NON-REACTIVE HEPATITIS B SURF AG (test co de = 2739) NON-REACTIVE HEPATITIS C ANTIBODY (test c ode = 4675) NON-REACTIVE INTERPRETATION HEPATITIS A: (test code = 2552) (NOTE) INTERPRETATION HEPATITIS B: (test code = 20607) (NOTE) INTERPRETATION HEPATITIS C: (test code = 66718) (NOTE) Serafin F AustinCHLAMYDIA, AMPLIFIED, [id number] 00:00:00* Test Item Value Reference Range Interpretation Comme nts CHLAMYDIA, NAAT (test code = 60241) NEGATIVE Serafin GaytanGC, AMPLIFIED, [id number] 00:00:00* Test Item Value Reference Range Interpretation Comme nts GONORRHEA, NAAT (test code = 55364) NEGATIVE Serafin [id number] 00:00:00* Test Item Value Reference Range Interpretation Comme nts RPR RESULT (test code = 3501) NON-REACTIVE RPR TITER (test code = 3500) NOT INDIC. TITER Serafin GaytanTRICHOMONAS, URINE, [id number] 00:00:00* Test Item Value Reference Range Interpretation Comme nts TRICHOMONAS, NAAT (test code = 78510) NEGATIVE Serafin GaytanHIV AB/AG COMBO RFLX [id number] 00:00:00* Test Item Value Reference Range Interpretation Comme nts HIV 1/2 4TH GEN, RFLX CONF ( test code = 3514) NON-REACTIVE Serafin GaytanACUTE HEPATITIS [id number] 00:00:00* Test Item Value Reference Range Interpretation Comme nts HEPATITIS A IgM (test code = 05288) NON-REACTIVE HEPATITIS B CORE IgM (test c ode = 4644) NON-REACTIVE HEPATITIS B SURF AG (test co de = 2739) NON-REACTIVE HEPATITIS C ANTIBODY (test c ode = 4675) NON-REACTIVE INTERPRETATION HEPATITIS A: (test code = 2552) (NOTE) INTERPRETATION HEPATITIS B: (test code = 33730) (NOTE) INTERPRETATION HEPATITIS C: (test code = 73259) (NOTE) Serafin GaytanCHLAMYDIA, AMPLIFIED, [id number] 00:00:00* Test Item Value Reference Range Interpretation Comme nts CHLAMYDIA, NAAT (test code = 41649) NEGATIVE Serafin [id number] 00:00:00* Test Item Value Reference Range Interpretation Comme nts TSH, THIRD GENERATION (test code = 2821) 3.810 UIU/ML Serafin GaytanMICROALBUMIN/CREATININE, RANDOM AND [id number] 00:00:00* Test Item Value Reference Range Interpretation Comme nts CREATININE, URINE, CONC. (te st code = 2072) 244.7 MG/DL ALBUMIN, URINE, RANDOM (test code = 89355) >440.0 MG/DL CALC ALBUMIN/CREAT, RND (jacob t code = 39800) (NOTE) MG/G Serafin GaytanCBC W/AUTO [id number] 00:00:00* Test Item Value Reference Range Interpretation Comme nts WBC (test code = 1001) 12.9 K/UL RBC (test code = 1002) 4.09 M/UL HEMOGLOBIN (test code = 1003) 11.7 G/DL HEMATOCRIT (test code = 1004) 33.8 % MCV (test code = 1005) 82.6 fL MCH (test code = 1006) 28.6 PG MCHC (test code = 1007) 34.6 G/DL RDW (test code = 1038) 12.6 % NEUTROPHILS (test code = 1008) 71.4 % LYMPHOCYTES (test code = 1010) 19.0 % MONOCYTES (test code = 1011) 6.8 % EOSINOPHILS (test code = 1012) 1.9 % BASOPHILS (test code = 1013) 0.9 % PLATELET COUNT (test code = 1015) 398 K/UL Serafin GaytanHEMOGLOBIN [id number] 00:00:00* Test Item Value Reference Range Interpretation Comme [facility] HEMOGLOBIN A1c (test code = 13544) 13.7 % Serafin GaytanLIPID [id number] 00:00:00* Test Item Value Reference Range Interpretation Comme nts CHOLESTEROL (test code = 2210) 261 MG/DL TRIGLYCERIDES (test code = 2232) 120 MG/DL HDL CHOLESTEROL (test code = 2220) 67 MG/DL CALC LDL CHOL (test code = 2237) 169 MG/DL RISK RATIO LDL/HDL (test cod e = 2238) 2.52 RATIO Serafin GaytanCOMPREHENSIVE METABOLIC [id number] 00:00:00* Test Item Value Reference Range Interpretation Comme nts GLUCOSE (test code = 2217) 256 MG/DL BUN (test code = 2208) 12 MG/DL CREATININE (test code = 2214) 0.66 MG/DL eGFR AMER. (test cod e = 82391) 118 ML/MIN/1.73 eGFR NON- AMER. (test code = 42578) 102 ML/MIN/1.73 CALC BUN/CREAT (test code = 2235) 18 RATIO SODIUM (test code = 2231) 135 MEQ/L POTASSIUM (test code = 2228) 4.1 MEQ/L CHLORIDE (test code = 2215) 94 MEQ/L CARBON DIOXIDE (test code = 2206) 26 MEQ/L CALCIUM (test code = 2209) 8.9 MG/DL PROTEIN, TOTAL (test code = 2229) 6.5 G/DL ALBUMIN (test code = 220) 3.2 G/DL CALC GLOBULIN (test code = 2240) 3.3 G/DL CALC A/G RATIO (test code = 2234) 1.0 RATIO BILIRUBIN, TOTAL (test code = 7) 0.8 MG/DL ALKALINE PHOSPHATASE (test code = 2203) 158 U/L AST (test code = 2218) 14 U/L ALT (test code = 2219) 8 U/L Serafin [id number] 00:00:00* Test Item Value Reference Range Interpretation Comme [facility] TSH, THIRD GENERATION (test code = 2821) 3.810 UIU/ML Serafin GaytanMICROALBUMIN/CREATININE, RANDOM AND [id number] 00:00:00* Test Item Value Reference Range Interpretation Comme [facility] CREATININE, URINE, CONC. (te st code = 2072) 244.7 MG/DL ALBUMIN, URINE, RANDOM (test code = 95436) >440.0 MG/DL CALC ALBUMIN/CREAT, RND (jacob t code = 97060) (NOTE) MG/G Serafin GaytanCBC W/AUTO [id number] 00:00:00* Test Item Value Reference Range Interpretation Comme nts WBC (test code = 1001) 12.9 K/UL RBC (test code = 1002) 4.09 M/UL HEMOGLOBIN (test code = 1003) 11.7 G/DL HEMATOCRIT (test code = 1004) 33.8 % MCV (test code = 1005) 82.6 fL MCH (test code = 1006) 28.6 PG MCHC (test code = 1007) 34.6 G/DL RDW (test code = 1038) 12.6 % NEUTROPHILS (test code = 1008) 71.4 % LYMPHOCYTES (test code = 1010) 19.0 % MONOCYTES (test code = 1011) 6.8 % EOSINOPHILS (test code = 1012) 1.9 % BASOPHILS (test code = 1013) 0.9 % PLATELET COUNT (test code = 1015) 398 K/UL Serafin GaytanHEMOGLOBIN [id number] 00:00:00* Test Item Value Reference Range Interpretation Comme [facility] HEMOGLOBIN A1c (test code = 07632) 13.7 % Serafin GaytanLIPID [id number] 00:00:00* Test Item Value Reference Range Interpretation Comme nts CHOLESTEROL (test code = 2210) 261 MG/DL TRIGLYCERIDES (test code = 2232) 120 MG/DL HDL CHOLESTEROL (test code = 2220) 67 MG/DL CALC LDL CHOL (test code = 2237) 169 MG/DL RISK RATIO LDL/HDL (test cod e = 2238) 2.52 RATIO Serafin GaytanCOMPREHENSIVE METABOLIC [id number] 00:00:00* Test Item Value Reference Range Interpretation Comme nts GLUCOSE (test code = 2217) 256 MG/DL BUN (test code = 2208) 12 MG/DL CREATININE (test code = 2214) 0.66 MG/DL eGFR AMER. (test cod e = 94110) 118 ML/MIN/1.73 eGFR NON- AMER. (test code = 25938) 102 ML/MIN/1.73 CALC BUN/CREAT (test code = 2235) 18 RATIO SODIUM (test code = 2231) 135 MEQ/L POTASSIUM (test code = 2228) 4.1 MEQ/L CHLORIDE (test code = 2215) 94 MEQ/L CARBON DIOXIDE (test code = 2206) 26 MEQ/L CALCIUM (test code = 2209) 8.9 MG/DL PROTEIN, TOTAL (test code = 2229) 6.5 G/DL ALBUMIN (test code = 2201) 3.2 G/DL CALC GLOBULIN (test code = 2240) 3.3 G/DL CALC A/G RATIO (test code = 2234) 1.0 RATIO BILIRUBIN, TOTAL (test code = 2207) 0.8 MG/DL ALKALINE PHOSPHATASE (test code = 2204) 158 U/L AST (test code = 2218) 14 U/L ALT (test code = 2219) 8 U/L Serafin F [id number] 00:00:00* Test Item Value Reference Range Interpretation Comme nts TSH, THIRD GENERATION (test code = 2821) 3.810 UIU/ML Serafin GaytanMICROALBUMIN/CREATININE, RANDOM AND [id number] 00:00:00* Test Item Value Reference Range Interpretation Comme nts CREATININE, URINE, CONC. (te st code = 2072) 244.7 MG/DL ALBUMIN, URINE, RANDOM (test code = 29942) >440.0 MG/DL CALC ALBUMIN/CREAT, RND (jacob t code = 41766) (NOTE) MG/G Serafin GaytanCBC W/AUTO [id number] 00:00:00* Test Item Value Reference Range Interpretation Comme nts WBC (test code = 1001) 12.9 K/UL RBC (test code = 1002) 4.09 M/UL HEMOGLOBIN (test code = 1003) 11.7 G/DL HEMATOCRIT (test code = 1004) 33.8 % MCV (test code = 1005) 82.6 fL MCH (test code = 1006) 28.6 PG MCHC (test code = 1007) 34.6 G/DL RDW (test code = 1038) 12.6 % NEUTROPHILS (test code = 1008) 71.4 % LYMPHOCYTES (test code = 1010) 19.0 % MONOCYTES (test code = 1011) 6.8 % EOSINOPHILS (test code = 1012) 1.9 % BASOPHILS (test code = 1013) 0.9 % PLATELET COUNT (test code = 1015) 398 K/UL Serafin GaytanHEMOGLOBIN [id number] 00:00:00* Test Item Value Reference Range Interpretation Comme [facility] HEMOGLOBIN A1c (test code = 58647) 13.7 % Serafin GaytanLIPID [id number] 00:00:00* Test Item Value Reference Range Interpretation Comme nts CHOLESTEROL (test code = 2210) 261 MG/DL TRIGLYCERIDES (test code = 2232) 120 MG/DL HDL CHOLESTEROL (test code = 2220) 67 MG/DL CALC LDL CHOL (test code = 2237) 169 MG/DL RISK RATIO LDL/HDL (test cod e = 2238) 2.52 RATIO Serafin GaytanCOMPREHENSIVE METABOLIC [id number] 00:00:00* Test Item Value Reference Range Interpretation Comme nts GLUCOSE (test code = 2217) 256 MG/DL BUN (test code = 2208) 12 MG/DL CREATININE (test code = 2214) 0.66 MG/DL eGFR AMER. (test cod e = 61783) 118 ML/MIN/1.73 eGFR NON- AMER. (test code = 84033) 102 ML/MIN/1.73 CALC BUN/CREAT (test code = 2235) 18 RATIO SODIUM (test code = 2231) 135 MEQ/L POTASSIUM (test code = 2228) 4.1 MEQ/L CHLORIDE (test code = 2215) 94 MEQ/L CARBON DIOXIDE (test code = 2206) 26 MEQ/L CALCIUM (test code = 2209) 8.9 MG/DL PROTEIN, TOTAL (test code = 2229) 6.5 G/DL ALBUMIN (test code = 2201) 3.2 G/DL CALC GLOBULIN (test code = 2240) 3.3 G/DL CALC A/G RATIO (test code = 2234) 1.0 RATIO BILIRUBIN, TOTAL (test code = 2207) 0.8 MG/DL ALKALINE PHOSPHATASE (test code = 2204) 158 U/L AST (test code = 2218) 14 U/L ALT (test code = 2219) 8 U/L Serafin [id number] 00:00:00* Test Item Value Reference Range Interpretation Comme nts TSH, THIRD GENERATION (test code = 2821) 3.810 UIU/ML Serafin GaytanMICROALBUMIN/CREATININE, RANDOM AND [id number] 00:00:00* Test Item Value Reference Range Interpretation Comme nts CREATININE, URINE, CONC. (te st code = 2072) 244.7 MG/DL ALBUMIN, URINE, RANDOM (test code = 96920) >440.0 MG/DL CALC ALBUMIN/CREAT, RND (jacob t code = 90928) (NOTE) MG/G Serafin Caldera LukasCBC W/AUTO [id number] 00:00:00* Test Item Value Reference Range Interpretation Comme nts WBC (test code = 1001) 12.9 K/UL RBC (test code = 1002) 4.09 M/UL HEMOGLOBIN (test code = 1003) 11.7 G/DL HEMATOCRIT (test code = 1004) 33.8 % MCV (test code = 1005) 82.6 fL MCH (test code = 1006) 28.6 PG MCHC (test code = 1007) 34.6 G/DL RDW (test code = 1038) 12.6 % NEUTROPHILS (test code = 1008) 71.4 % LYMPHOCYTES (test code = 1010) 19.0 % MONOCYTES (test code = 1011) 6.8 % EOSINOPHILS (test code = 1012) 1.9 % BASOPHILS (test code = 1013) 0.9 % PLATELET COUNT (test code = 1015) 398 K/UL Serafin GaytanHEMOGLOBIN [id number] 00:00:00* Test Item Value Reference Range Interpretation Comme [facility] HEMOGLOBIN A1c (test code = 36925) 13.7 % Serafin GaytanLIPID [id number] 00:00:00* Test Item Value Reference Range Interpretation Comme nts CHOLESTEROL (test code = 2210) 261 MG/DL TRIGLYCERIDES (test code = 2232) 120 MG/DL HDL CHOLESTEROL (test code = 2220) 67 MG/DL CALC LDL CHOL (test code = 2237) 169 MG/DL RISK RATIO LDL/HDL (test cod e = 2238) 2.52 RATIO Serafin GaytanCOMPREHENSIVE METABOLIC [id number] 00:00:00* Test Item Value Reference Range Interpretation Comme nts GLUCOSE (test code = 2217) 256 MG/DL BUN (test code = 2208) 12 MG/DL CREATININE (test code = 2214) 0.66 MG/DL eGFR AMER. (test cod e = 08471) 118 ML/MIN/1.73 eGFR NON- AMER. (test code = 57088) 102 ML/MIN/1.73 CALC BUN/CREAT (test code = 2235) 18 RATIO SODIUM (test code = 2231) 135 MEQ/L POTASSIUM (test code = 2228) 4.1 MEQ/L CHLORIDE (test code = 2215) 94 MEQ/L CARBON DIOXIDE (test code = 2206) 26 MEQ/L CALCIUM (test code = 2209) 8.9 MG/DL PROTEIN, TOTAL (test code = 2229) 6.5 G/DL ALBUMIN (test code = 2201) 3.2 G/DL CALC GLOBULIN (test code = 2240) 3.3 G/DL CALC A/G RATIO (test code = 2234) 1.0 RATIO BILIRUBIN, TOTAL (test code = 2207) 0.8 MG/DL ALKALINE PHOSPHATASE (test code = 2204) 158 U/L AST (test code = 2218) 14 U/L ALT (test code = 2219) 8 U/L Serafin [id number] 00:00:00* Test Item Value Reference Range Interpretation Comme nts TSH, THIRD GENERATION (test code = 2821) 3.810 UIU/ML Serafin GaytanMICROALBUMIN/CREATININE, RANDOM AND [id number] 00:00:00* Test Item Value Reference Range Interpretation Comme nts CREATININE, URINE, CONC. (te st code = 2072) 244.7 MG/DL ALBUMIN, URINE, RANDOM (test code = 27593) >440.0 MG/DL CALC ALBUMIN/CREAT, RND (jacob t code = 79802) (NOTE) MG/G Serafin GaytanCBC W/AUTO [id number] 00:00:00* Test Item Value Reference Range Interpretation Comme nts WBC (test code = 1001) 12.9 K/UL RBC (test code = 1002) 4.09 M/UL HEMOGLOBIN (test code = 1003) 11.7 G/DL HEMATOCRIT (test code = 1004) 33.8 % MCV (test code = 1005) 82.6 fL MCH (test code = 1006) 28.6 PG MCHC (test code = 1007) 34.6 G/DL RDW (test code = 1038) 12.6 % NEUTROPHILS (test code = 1008) 71.4 % LYMPHOCYTES (test code = 1010) 19.0 % MONOCYTES (test code = 1011) 6.8 % EOSINOPHILS (test code = 1012) 1.9 % BASOPHILS (test code = 1013) 0.9 % PLATELET COUNT (test code = 1015) 398 K/UL Serafin GaytanHEMOGLOBIN [id number] 00:00:00* Test Item Value Reference Range Interpretation Comme [facility] HEMOGLOBIN A1c (test code = 51362) 13.7 % Serafin GaytanLIPID [id number] 00:00:00* Test Item Value Reference Range Interpretation Comme nts CHOLESTEROL (test code = 2210) 261 MG/DL TRIGLYCERIDES (test code = 2232) 120 MG/DL HDL CHOLESTEROL (test code = 2220) 67 MG/DL CALC LDL CHOL (test code = 2237) 169 MG/DL RISK RATIO LDL/HDL (test cod e = 2238) 2.52 RATIO Serafin GaytanCOMPREHENSIVE METABOLIC [id number] 00:00:00* Test Item Value Reference Range Interpretation Comme nts GLUCOSE (test code = 2217) 256 MG/DL BUN (test code = 2208) 12 MG/DL CREATININE (test code = 2214) 0.66 MG/DL eGFR AMER. (test cod e = 51141) 118 ML/MIN/1.73 eGFR NON- AMER. (test code = 88177) 102 ML/MIN/1.73 CALC BUN/CREAT (test code = 2235) 18 RATIO SODIUM (test code = 2231) 135 MEQ/L POTASSIUM (test code = 2228) 4.1 MEQ/L CHLORIDE (test code = 2215) 94 MEQ/L CARBON DIOXIDE (test code = 2206) 26 MEQ/L CALCIUM (test code = 2209) 8.9 MG/DL PROTEIN, TOTAL (test code = 2229) 6.5 G/DL ALBUMIN (test code = 2201) 3.2 G/DL CALC GLOBULIN (test code = 2240) 3.3 G/DL CALC A/G RATIO (test code = 2234) 1.0 RATIO BILIRUBIN, TOTAL (test code = 2207) 0.8 MG/DL ALKALINE PHOSPHATASE (test code = 2204) 158 U/L AST (test code = 2218) 14 U/L ALT (test code = 2219) 8 U/L Serafin [id number] 00:00:00* Test Item Value Reference Range Interpretation Comme nts TSH, THIRD GENERATION (test code = 2821) 3.810 UIU/ML Serafin GaytanMICROALBUMIN/CREATININE, RANDOM AND [id number] 00:00:00* Test Item Value Reference Range Interpretation Comme nts CREATININE, URINE, CONC. (te st code = 2072) 244.7 MG/DL ALBUMIN, URINE, RANDOM (test code = 81017) >440.0 MG/DL CALC ALBUMIN/CREAT, RND (jacob t code = 63487) (NOTE) MG/G Serafin GaytanCBC W/AUTO [id number] 00:00:00* Test Item Value Reference Range Interpretation Comme nts WBC (test code = 1001) 12.9 K/UL RBC (test code = 1002) 4.09 M/UL HEMOGLOBIN (test code = 1003) 11.7 G/DL HEMATOCRIT (test code = 1004) 33.8 % MCV (test code = 1005) 82.6 fL MCH (test code = 1006) 28.6 PG MCHC (test code = 1007) 34.6 G/DL RDW (test code = 1038) 12.6 % NEUTROPHILS (test code = 1008) 71.4 % LYMPHOCYTES (test code = 1010) 19.0 % MONOCYTES (test code = 1011) 6.8 % EOSINOPHILS (test code = 1012) 1.9 % BASOPHILS (test code = 1013) 0.9 % PLATELET COUNT (test code = 1015) 398 K/UL Serafin GaytanHEMOGLOBIN [id number] 00:00:00* Test Item Value Reference Range Interpretation Comme nts HEMOGLOBIN A1c (test code = 44808) 13.7 % Serafin GaytanLIPID [id number] 00:00:00* Test Item Value Reference Range Interpretation Comme nts CHOLESTEROL (test code = 2210) 261 MG/DL TRIGLYCERIDES (test code = 2232) 120 MG/DL HDL CHOLESTEROL (test code = 2220) 67 MG/DL CALC LDL CHOL (test code = 2237) 169 MG/DL RISK RATIO LDL/HDL (test cod e = 2238) 2.52 RATIO Serafin GaytanCOMPREHENSIVE METABOLIC [id number] 00:00:00* Test Item Value Reference Range Interpretation Comme nts GLUCOSE (test code = 2217) 256 MG/DL BUN (test code = 2208) 12 MG/DL CREATININE (test code = 2214) 0.66 MG/DL eGFR AMER. (test cod e = 83417) 118 ML/MIN/1.73 eGFR NON- AMER. (test code = 35269) 102 ML/MIN/1.73 CALC BUN/CREAT (test code = 2235) 18 RATIO SODIUM (test code = 2231) 135 MEQ/L POTASSIUM (test code = 2228) 4.1 MEQ/L CHLORIDE (test code = 2215) 94 MEQ/L CARBON DIOXIDE (test code = 2206) 26 MEQ/L CALCIUM (test code = 2209) 8.9 MG/DL PROTEIN, TOTAL (test code = 2229) 6.5 G/DL ALBUMIN (test code = 2201) 3.2 G/DL CALC GLOBULIN (test code = 2240) 3.3 G/DL CALC A/G RATIO (test code = 2234) 1.0 RATIO BILIRUBIN, TOTAL (test code = 2207) 0.8 MG/DL ALKALINE PHOSPHATASE (test code = 2204) 158 U/L AST (test code = 2218) 14 U/L ALT (test code = 2219) 8 U/L Serafin GaytanHEMOGLOBIN [id number] 00:00:00* Test Item Value Reference Range Interpretation Comme mercy HEMOGLOBIN A1c (test code = 83375) 13.0 % Serafin [id number] 00:00:00* Test Item Value Reference Range Interpretation Comme nts TSH (test code = 2821) 3.2 UIU/ML Serafin GaytanCOMPREHENSIVE METABOLIC [id number] 00:00:00* Test Item Value Reference Range Interpretation Comme nts GLUCOSE (test code = 2217) 392 MG/DL BUN (test code = 2208) 6 MG/DL CREATININE (test code = 2214) 0.54 MG/DL eGFR AMER. (test cod e = 94935) 129 ML/MIN/1.73 eGFR NON- AMER. (test code = 96860) 112 ML/MIN/1.73 CALCULATED BUN/CREAT (test code = 2235) 11 RATIO SODIUM (test code = 2231) 135 MEQ/L POTASSIUM (test code = 2228) 4.2 MEQ/L CHLORIDE (test code = 2215) 95 MEQ/L CARBON DIOXIDE (test code = 2206) 24 MEQ/L CALCIUM (test code = 2209) 9.4 MG/DL PROTEIN, TOTAL (test code = 2229) 7.0 G/DL ALBUMIN (test code = 2201) 3.7 G/DL CALCULATED GLOBULIN (test code = 2240) 3.3 G/DL CALCULATED A/G RATIO (test code = 2234) 1.1 RATIO BILIRUBIN, TOTAL (test code = 2207) 0.6 MG/DL ALKALINE PHOSPHATASE (test code = 2204) 97 U/L SGOT (AST) (test code = 2218) 15 U/L SGPT (ALT) (test code = 2219) 12 U/L Serafin GaytanLIPID [id number] 00:00:00* Test Item Value Reference Range Interpretation Comme nts CHOLESTEROL (test code = 2210) 223 MG/DL TRIGLYCERIDES (test code = 2232) 316 MG/DL HDL CHOLESTEROL (test code = 2220) 57 MG/DL CALCULATED LDL CHOL (test co de = 2237) 103 MG/DL RISK RATIO LDL/HDL (test cod e = 2238) 1.80 RATIO Serafin GaytanCBC W/AUTO [id number] 00:00:00* Test Item Value Reference Range Interpretation Comme nts WBC (test code = 1001) 6.3 K/UL RBC (test code = 1002) 5.01 M/UL HEMOGLOBIN (test code = 1003) 14.1 G/DL HEMATOCRIT (test code = 1004) 42.1 % MCV (test code = 1005) 84.0 fL MCH (test code = 1006) 28.1 PG MCHC (test code = 1007) 33.5 G/DL RDW (test code = 1038) 14.2 % NEUTROPHILS (test code = 1008) 54 % LYMPHOCYTES (test code = 1010) 36 % MONOCYTES (test code = 1011) 6 % EOSINOPHILS (test code = 1012) 3 % BASOPHILS (test code = 1013) 1 % PLATELET COUNT (test code = 1015) 305 K/UL Serafin GaytanHEMOGLOBIN [id number] 00:00:00* Test Item Value Reference Range Interpretation Comme mercy HEMOGLOBIN A1c (test code = 30248) 13.0 % Serafin [id number] 00:00:00* Test Item Value Reference Range Interpretation Comme nts TSH (test code = 2821) 3.2 UIU/ML Serafin GaytanCOMPREHENSIVE METABOLIC [id number] 00:00:00* Test Item Value Reference Range Interpretation Comme nts GLUCOSE (test code = 2217) 392 MG/DL BUN (test code = 2208) 6 MG/DL CREATININE (test code = 2214) 0.54 MG/DL eGFR AMER. (test cod e = 58534) 129 ML/MIN/1.73 eGFR NON- AMER. (test code = 89331) 112 ML/MIN/1.73 CALCULATED BUN/CREAT (test code = 2235) 11 RATIO SODIUM (test code = 2231) 135 MEQ/L POTASSIUM (test code = 2228) 4.2 MEQ/L CHLORIDE (test code = 2215) 95 MEQ/L CARBON DIOXIDE (test code = 2206) 24 MEQ/L CALCIUM (test code = 2209) 9.4 MG/DL PROTEIN, TOTAL (test code = 2229) 7.0 G/DL ALBUMIN (test code = 2201) 3.7 G/DL CALCULATED GLOBULIN (test code = 2240) 3.3 G/DL CALCULATED A/G RATIO (test code = 2234) 1.1 RATIO BILIRUBIN, TOTAL (test code = 2207) 0.6 MG/DL ALKALINE PHOSPHATASE (test code = 2204) 97 U/L SGOT (AST) (test code = 2218) 15 U/L SGPT (ALT) (test code = 2219) 12 U/L Serafin GaytanLIPID [id number] 00:00:00* Test Item Value Reference Range Interpretation Comme nts CHOLESTEROL (test code = 2210) 223 MG/DL TRIGLYCERIDES (test code = 2232) 316 MG/DL HDL CHOLESTEROL (test code = 2220) 57 MG/DL CALCULATED LDL CHOL (test co de = 223) 103 MG/DL RISK RATIO LDL/HDL (test cod e = 2238) 1.80 RATIO Serafin GaytanCBC W/AUTO [id number] 00:00:00* Test Item Value Reference Range Interpretation Comme nts WBC (test code = 1001) 6.3 K/UL RBC (test code = 1002) 5.01 M/UL HEMOGLOBIN (test code = 1003) 14.1 G/DL HEMATOCRIT (test code = 1004) 42.1 % MCV (test code = 1005) 84.0 fL MCH (test code = 1006) 28.1 PG MCHC (test code = 1007) 33.5 G/DL RDW (test code = 1038) 14.2 % NEUTROPHILS (test code = 1008) 54 % LYMPHOCYTES (test code = 1010) 36 % MONOCYTES (test code = 1011) 6 % EOSINOPHILS (test code = 1012) 3 % BASOPHILS (test code = 1013) 1 % PLATELET COUNT (test code = 1015) 305 K/UL Serafin GaytanHEMOGLOBIN [id number] 00:00:00* Test Item Value Reference Range Interpretation Comme mercy HEMOGLOBIN A1c (test code = 72690) 13.0 % Serafin Caldera [id number] 00:00:00* Test Item Value Reference Range Interpretation Comme nts TSH (test code = 2821) 3.2 UIU/ML Serafin GaytanCOMPREHENSIVE METABOLIC [id number] 00:00:00* Test Item Value Reference Range Interpretation Comme nts GLUCOSE (test code = 2217) 392 MG/DL BUN (test code = 2208) 6 MG/DL CREATININE (test code = 2214) 0.54 MG/DL eGFR AMER. (test cod e = 19395) 129 ML/MIN/1.73 eGFR NON- AMER. (test code = 12875) 112 ML/MIN/1.73 CALCULATED BUN/CREAT (test code = 2235) 11 RATIO SODIUM (test code = 2231) 135 MEQ/L POTASSIUM (test code = 2228) 4.2 MEQ/L CHLORIDE (test code = 2215) 95 MEQ/L CARBON DIOXIDE (test code = 2206) 24 MEQ/L CALCIUM (test code = 2209) 9.4 MG/DL PROTEIN, TOTAL (test code = 2229) 7.0 G/DL ALBUMIN (test code = 2201) 3.7 G/DL CALCULATED GLOBULIN (test code = 2240) 3.3 G/DL CALCULATED A/G RATIO (test code = 2234) 1.1 RATIO BILIRUBIN, TOTAL (test code = 2207) 0.6 MG/DL ALKALINE PHOSPHATASE (test code = 2204) 97 U/L SGOT (AST) (test code = 2218) 15 U/L SGPT (ALT) (test code = 2219) 12 U/L Serafin GaytanLIPID [id number] 00:00:00* Test Item Value Reference Range Interpretation Comme nts CHOLESTEROL (test code = 2210) 223 MG/DL TRIGLYCERIDES (test code = 2232) 316 MG/DL HDL CHOLESTEROL (test code = 2220) 57 MG/DL CALCULATED LDL CHOL (test co de = 2237) 103 MG/DL RISK RATIO LDL/HDL (test cod e = 2238) 1.80 RATIO Serafin GaytanCBC W/AUTO [id number] 00:00:00* Test Item Value Reference Range Interpretation Comme nts WBC (test code = 1001) 6.3 K/UL RBC (test code = 1002) 5.01 M/UL HEMOGLOBIN (test code = 1003) 14.1 G/DL HEMATOCRIT (test code = 1004) 42.1 % MCV (test code = 1005) 84.0 fL MCH (test code = 1006) 28.1 PG MCHC (test code = 1007) 33.5 G/DL RDW (test code = 1038) 14.2 % NEUTROPHILS (test code = 1008) 54 % LYMPHOCYTES (test code = 1010) 36 % MONOCYTES (test code = 1011) 6 % EOSINOPHILS (test code = 1012) 3 % BASOPHILS (test code = 1013) 1 % PLATELET COUNT (test code = 1015) 305 K/UL Serafin GaytanHEMOGLOBIN [id number] 00:00:00* Test Item Value Reference Range Interpretation Comme mercy HEMOGLOBIN A1c (test code = 99653) 13.0 % Serafin [id number] 00:00:00* Test Item Value Reference Range Interpretation Comme nts TSH (test code = 2821) 3.2 UIU/ML Serafin GaytanCOMPREHENSIVE METABOLIC [id number] 00:00:00* Test Item Value Reference Range Interpretation Comme nts GLUCOSE (test code = 2217) 392 MG/DL BUN (test code = 2208) 6 MG/DL CREATININE (test code = 2214) 0.54 MG/DL eGFR AMER. (test cod e = 84797) 129 ML/MIN/1.73 eGFR NON- AMER. (test code = 17853) 112 ML/MIN/1.73 CALCULATED BUN/CREAT (test code = 2235) 11 RATIO SODIUM (test code = 2231) 135 MEQ/L POTASSIUM (test code = 2228) 4.2 MEQ/L CHLORIDE (test code = 2215) 95 MEQ/L CARBON DIOXIDE (test code = 2206) 24 MEQ/L CALCIUM (test code = 2209) 9.4 MG/DL PROTEIN, TOTAL (test code = 2229) 7.0 G/DL ALBUMIN (test code = 2201) 3.7 G/DL CALCULATED GLOBULIN (test code = 2240) 3.3 G/DL CALCULATED A/G RATIO (test code = 2234) 1.1 RATIO BILIRUBIN, TOTAL (test code = 2207) 0.6 MG/DL ALKALINE PHOSPHATASE (test code = 2204) 97 U/L SGOT (AST) (test code = 2218) 15 U/L SGPT (ALT) (test code = 2219) 12 U/L Serafin GaytanLIPID [id number] 00:00:00* Test Item Value Reference Range Interpretation Comme nts CHOLESTEROL (test code = 2210) 223 MG/DL TRIGLYCERIDES (test code = 2232) 316 MG/DL HDL CHOLESTEROL (test code = 2220) 57 MG/DL CALCULATED LDL CHOL (test co de = 2237) 103 MG/DL RISK RATIO LDL/HDL (test cod e = 2238) 1.80 RATIO Serafin GaytanCBC W/AUTO [id number] 00:00:00* Test Item Value Reference Range Interpretation Comme nts WBC (test code = 1001) 6.3 K/UL RBC (test code = 1002) 5.01 M/UL HEMOGLOBIN (test code = 1003) 14.1 G/DL HEMATOCRIT (test code = 1004) 42.1 % MCV (test code = 1005) 84.0 fL MCH (test code = 1006) 28.1 PG MCHC (test code = 1007) 33.5 G/DL RDW (test code = 1038) 14.2 % NEUTROPHILS (test code = 1008) 54 % LYMPHOCYTES (test code = 1010) 36 % MONOCYTES (test code = 1011) 6 % EOSINOPHILS (test code = 1012) 3 % BASOPHILS (test code = 1013) 1 % PLATELET COUNT (test code = 1015) 305 K/UL Serafin GaytanHEMOGLOBIN [id number] 00:00:00* Test Item Value Reference Range Interpretation Comme nts HEMOGLOBIN A1c (test code = 39382) 13.0 % Serafin [id number] 00:00:00* Test Item Value Reference Range Interpretation Comme nts TSH (test code = 2821) 3.2 UIU/ML Serafin GaytanCOMPREHENSIVE METABOLIC [id number] 00:00:00* Test Item Value Reference Range Interpretation Comme nts GLUCOSE (test code = 2217) 392 MG/DL BUN (test code = 2208) 6 MG/DL CREATININE (test code = 2214) 0.54 MG/DL eGFR AMER. (test cod e = 51239) 129 ML/MIN/1.73 eGFR NON- AMER. (test code = 96701) 112 ML/MIN/1.73 CALCULATED BUN/CREAT (test code = 2235) 11 RATIO SODIUM (test code = 2231) 135 MEQ/L POTASSIUM (test code = 2228) 4.2 MEQ/L CHLORIDE (test code = 2215) 95 MEQ/L CARBON DIOXIDE (test code = 2206) 24 MEQ/L CALCIUM (test code = 2209) 9.4 MG/DL PROTEIN, TOTAL (test code = 2229) 7.0 G/DL ALBUMIN (test code = 2201) 3.7 G/DL CALCULATED GLOBULIN (test code = 2240) 3.3 G/DL CALCULATED A/G RATIO (test code = 2234) 1.1 RATIO BILIRUBIN, TOTAL (test code = 2207) 0.6 MG/DL ALKALINE PHOSPHATASE (test code = 2204) 97 U/L SGOT (AST) (test code = 2218) 15 U/L SGPT (ALT) (test code = 2219) 12 U/L Serafin GaytanLIPID [id number] 00:00:00* Test Item Value Reference Range Interpretation Comme nts CHOLESTEROL (test code = 2210) 223 MG/DL TRIGLYCERIDES (test code = 2232) 316 MG/DL HDL CHOLESTEROL (test code = 2220) 57 MG/DL CALCULATED LDL CHOL (test co de = 2237) 103 MG/DL RISK RATIO LDL/HDL (test cod e = 2238) 1.80 RATIO Serafin GaytanCBC W/AUTO [id number] 00:00:00* Test Item Value Reference Range Interpretation Comme nts WBC (test code = 1001) 6.3 K/UL RBC (test code = 1002) 5.01 M/UL HEMOGLOBIN (test code = 1003) 14.1 G/DL HEMATOCRIT (test code = 1004) 42.1 % MCV (test code = 1005) 84.0 fL MCH (test code = 1006) 28.1 PG MCHC (test code = 1007) 33.5 G/DL RDW (test code = 1038) 14.2 % NEUTROPHILS (test code = 1008) 54 % LYMPHOCYTES (test code = 1010) 36 % MONOCYTES (test code = 1011) 6 % EOSINOPHILS (test code = 1012) 3 % BASOPHILS (test code = 1013) 1 % PLATELET COUNT (test code = 1015) 305 K/UL Serafin GaytanHEMOGLOBIN [id number] 00:00:00* Test Item Value Reference Range Interpretation Comme nts HEMOGLOBIN A1c (test code = 79735) 13.0 % Serafin [id number] 00:00:00* Test Item Value Reference Range Interpretation Comme nts TSH (test code = 2821) 3.2 UIU/ML Serafin GaytanCOMPREHENSIVE METABOLIC [id number] 00:00:00* Test Item Value Reference Range Interpretation Comme nts GLUCOSE (test code = 2217) 392 MG/DL BUN (test code = 2208) 6 MG/DL CREATININE (test code = 2214) 0.54 MG/DL eGFR AMER. (test cod e = 08860) 129 ML/MIN/1.73 eGFR NON- AMER. (test code = 07885) 112 ML/MIN/1.73 CALCULATED BUN/CREAT (test code = 2235) 11 RATIO SODIUM (test code = 2231) 135 MEQ/L POTASSIUM (test code = 2228) 4.2 MEQ/L CHLORIDE (test code = 2215) 95 MEQ/L CARBON DIOXIDE (test code = 2206) 24 MEQ/L CALCIUM (test code = 2209) 9.4 MG/DL PROTEIN, TOTAL (test code = 2229) 7.0 G/DL ALBUMIN (test code = 2201) 3.7 G/DL CALCULATED GLOBULIN (test code = 2240) 3.3 G/DL CALCULATED A/G RATIO (test code = 2234) 1.1 RATIO BILIRUBIN, TOTAL (test code = 2207) 0.6 MG/DL ALKALINE PHOSPHATASE (test code = 2204) 97 U/L SGOT (AST) (test code = 2218) 15 U/L SGPT (ALT) (test code = 2219) 12 U/L Serafin GaytanLIPID [id number] 00:00:00* Test Item Value Reference Range Interpretation Comme nts CHOLESTEROL (test code = 2210) 223 MG/DL TRIGLYCERIDES (test code = 2232) 316 MG/DL HDL CHOLESTEROL (test code = 2220) 57 MG/DL CALCULATED LDL CHOL (test co de = 2237) 103 MG/DL RISK RATIO LDL/HDL (test cod e = 2238) 1.80 RATIO Serafin GaytanCBC W/AUTO [id number] 00:00:00* Test Item Value Reference Range Interpretation Comme nts WBC (test code = 1001) 6.3 K/UL RBC (test code = 1002) 5.01 M/UL HEMOGLOBIN (test code = 1003) 14.1 G/DL HEMATOCRIT (test code = 1004) 42.1 % MCV (test code = 1005) 84.0 fL MCH (test code = 1006) 28.1 PG MCHC (test code = 1007) 33.5 G/DL RDW (test code = 1038) 14.2 % NEUTROPHILS (test code = 1008) 54 % LYMPHOCYTES (test code = 1010) 36 % MONOCYTES (test code = 1011) 6 % EOSINOPHILS (test code = 1012) 3 % BASOPHILS (test code = 1013) 1 % PLATELET COUNT (test code = 1015) 305 K/UL Serafin Gaytan Consult Notes Date/Time Note Provider Source 2023-03-18 17:41:30 Associated Order(s): CONSULT CARDIOLOGY Cardiology Consult Note Date of Service: 03/18/2023 17:41 Time: 5:41 PM Chief Complaint: abdominal pain Reason for admission: acute cholecystitis Reason for consult: preoperative risk stratification History of Present Illness: Jailyn Soler is a 57 year old female with PMHx of CAD s/p PCI, HTN, HLD, mild , DM II, admitted with abdominal pain concerning for acute cholecystitis. Plan for OR tomorrow Monday 03/19. Cardiology consulted for risk stratification. Seen and examined laying in bed this afternoon, doing well at this time without chest pain, SOB, palpitations. Recently seen in clinic by her getter filler Dr Pierce. Able to walk up flight of stairs without chest pain, SOB, able to tolerate >4 METs. ROS: General: (-) fever, (-) chills, (-) weight loss Skin: (-) rash, (-) lesion HEENT: (-) headache, (-) change in vision Neck: (-) pain, (-) difficulty swallowing Heme: (-) bleeding disorder Resp: (-) cough, (-) shortness of breath, (-) dyspnea on exertion Cardio: (-) chest pain, (-) palpitations, (-) syncope GI: (+) abdominal pain, (+) nausea : (-) hematuria, (-) difficulty urinating Endo: (+) diabetes, (-) renal insufficiency Neuro: (-) numbness, (-) tingling Back: (-) pain, (-)spasms KUNAL: (-) muscle pain, (-) joint pain Psych: (-) anxiety, (-) depression Past Medical History: Diagnosis Date Diabetes mellitus Genital warts 11/24/2014 Hypertension Nonrheumatic aortic valve stenosis 03/15/2023 Thyroid disease Past Surgical History: Procedure Laterality Date APPENDECTOMY COLONOSCOPY N/A 06/13/2018 Surgeon: Chevy Reeder MD; Location: [facility] Location ENDOLASER PHOTOCOAGULATION Right 12/16/2018 Surgeon: Kristopher Kyle MD; Location: [place] OR Location PARS PLANA VITRECTOMY Right 12/16/2018 Surgeon: Kristopher Kyle MD; Location: [place] [facility] OR Location TUBAL LIGATION Family History Problem Relation Age of Onset Diabetes Mother High cholesterol Mother Hypertension Mother Arthritis Sister Depression Sister Asthma NoFHx defects NoFHx Breast Cancer NoFHx Colon Cancer NoFHx Ovarian Cancer NoFHx Uterine Cancer NoFHx Cancer NoFHx Genetic NoFHx Heart NoFHx Mental retardation NoFHx Neurological NoFHx Osteoporosis NoFHx Psychiatry NoFHx Other - see comments NoFHx Social History Socioeconomic History Marital status: Single Number of children: 4 Occupational History Occupation: none Tobacco Use Smoking status: Never Passive exposure: Current ( CURRENT SMOKER) Smokeless tobacco: Never Substance and Sexual Activity Alcohol use: Not Currently Drug use: Never Sexual activity: Yes Partners: Male Other Topics Concern Blood Transfusions No Social History Narrative No domestic violence or abuse Social Determinants of Health Financial Resource Strain: Low Risk (12/02/2022) Overall Financial Resource Strain (CARDIA) Difficulty of Paying Living Expenses: Not hard at all Food Insecurity: No Food Insecurity (12/02/2022) Hunger Vital Sign Worried About Running Out of Food in the Last Year: Never true Ran Out of Food in the Last Year: Never true Transportation Needs: No Transportation Needs (12/02/2022) PRAPARE - Transportation Lack of Transportation (Medical): No Lack of Transportation (Non-Medical): No Physical Activity: Unknown (12/02/2022) Exercise Vital Sign Days of Exercise per Week: Patient refused Minutes of Exercise per Session: Patient refused Stress: Stress Concern Present (08/22/2021) [place] [facility] [employer] - Occupational Stress Questionnaire Feeling of Stress : Very much Social Connections: Unknown (12/02/2022) Social Connection and Isolation Panel [NHANES] Frequency of Communication with Friends and Family: More than three times a week Marital Status: Never Housing Stability: Unknown (12/02/2022) Housing Stability Vital Sign Unable to Pay for Housing in the Last Year: No Unstable Housing in the Last Year: No No Known Allergies Prior to Admission medications Medication Sig Start Date End Date Taking? Authorizing Provider carvediloL 25 mg tablet Take 1 tablet by mouth in the morning and 1 tablet in the evening. Take with meals. 03/15/23 Keny Pierce MD aspirin 81 mg chewable tablet Take 1 tablet by mouth in the morning. 02/26/23 Carisa Lizarraga FNP furosemide 40 mg tablet Take 1 tablet by mouth in the morning. 01/12/23 Carisa Lizarraga FNP levothyroxine (SYNTHROID) 50 mcg tablet Take 1 tablet by mouth every morning. 11/05/22 Carisa Lizarraga FNP atorvastatin 80 mg tablet Take 1 tablet by mouth at bedtime. 11/02/22 Carisa Lizarraga FNP gabapentin 300 mg capsule Take 1 capsule by mouth in the morning and 1 capsule at noon and 1 capsule in the evening. 11/02/22 Carisa Lizarraga FNP glipiZIDE 10 mg tablet Take 1 tablet by mouth 2 (two) times daily before breakfast and dinner. 11/02/22 Anene, Carisa, VIDEO OPERATOR insulin NPH and regular human 70-30 (HUMULIN 70/30 U-100 INSULIN) 100 unit/mL (70-30) injection inject 15 Units under the skin 2 (two) times daily before breakfast and dinner. 11/02/22 Carisa Lizarraga, VIDEO OPERATOR lisinopriL 20 mg tablet Take 1 tablet by mouth in the morning. 11/02/22 Carisa Lizarraga FNP pantoprazole 40 mg EC tablet Take 1 tablet by mouth in the morning. 11/02/22 Carisa Lizarraga, VIDEO OPERATOR vvqfanlnhy-jhwyypxgjmjoc-fqcu 50-325-40 mg tablet Take 1 tablet by mouth every 6 (six) hours as needed (Headache). 08/17/21 Jason Cantu MD amLODIPine 10 mg tablet Take 10 mg by mouth daily. Doctor Unassigned, [place] albuterol 90 mcg/actuation inhaler Inhale 2 Puffs every 4 (four) hours as needed for Wheezing or Shortness of Breath. 06/05/21 Abigail Souza MD Current Facility-Administered Medications: acetaminophen (TYLENOL) tablet 650 mg, 650 mg, Oral, Q6HPRN, Sekou Pritchard MD [START ON 03/19/2023] carvediloL (COREG) tablet 25 mg, 25 mg, Oral, BID MEALS, Raquel Horton MD dextrose 50 % in water (D50W) injection 25 mL, 25 mL, Slow IV Push, PRN, Sekou Pritchard MD enoxaparin (LOVENOX) injection 40 mg, 40 mg, Subcutaneous, Q24H, Raquel Horton MD, 40 mg at 03/18/23 1723 [START ON 03/19/2023] furosemide (LASIX) tablet 40 mg, 40 mg, Oral, DAILY, Raquel Horton MD glucagon (GLUCAGEN DIAGNOSTIC KIT) injection 1 mg, 1 mg, Intramuscular, PRN, Sekou Pritchard MD lactated ringers IV infusion 1,000 mL, 1,000 mL, IV Infusion, CONTINUOUS, Sekou Pritchard MD, Last Rate: 100 mL/hr at 03/18/23 1250, 1,000 mL at 03/18/23 1250 [START ON 03/19/2023] levothyroxine (SYNTHROID) tablet 50 mcg, 50 mcg, Oral, QAM-0600, Sekou Pritchard MD morpHINE (2 mg/mL) injection 2 mg, 2 mg, Slow IV Push, Q4HPRN, Sekou Pritchard MD ondansetron (ZOFRAN (PF)) injection 4 mg, 4 mg, Slow IV Push, Q8HPRN, Sekou Pritchard MD pantoprazole (PROTONIX) EC tablet 40 mg, 40 mg, Oral, DAILY, Sekou Pritchard MD, 40 mg at 03/18/23 1249 piperacillin-tazobactam (ZOSYN) 3.375 g in NaCl 0.9% (NS) 100 mL MINI-BAG, 3.375 g, IV Piggyback, Q8H ABX, Sekou Pritchard MD, Last Rate: 25 mL/hr at 03/18/23 1724, 3.375 g at 03/18/23 1724 Sliding Scale Insulin - Lispro (HumaLOG), , Subcutaneous, Q4H, Sekou Pritchard MD, 1 Units at 03/18/23 1256 Physical Examination: Temp: [36.8 ?C (98.2 ?F)-37.2 ?C (99 ?F)] Heart Rate (monitor): [70-94] Pulse: [69-94] Resp: [14-21] BP: (132-184)/(58-74) MAP (mmHg): [79-103] No intake or output data in the 24 hours ending 03/18/23 1741 Physical Exam Constitutional: General: She is not in acute distress. HENT: Head: Normocephalic and atraumatic. Mouth/Throat: Mouth: Mucous membranes are moist. Eyes: General: No scleral icterus. Conjunctiva/sclera: Conjunctivae normal. Cardiovascular: Rate and Rhythm: Normal rate and regular rhythm. Heart sounds: Murmur heard. No friction rub. No gallop. Pulmonary: Breath sounds: No wheezing, rhonchi or rales. Abdominal: General: There is no distension. Palpations: Abdomen is soft. Musculoskeletal: Right lower leg: No edema. Left lower leg: No edema. Skin: General: Skin is warm and dry. Neurological: Mental Status: She is alert and oriented to person, place, and time. Psychiatric: Thought Content: Thought content normal. Labs/Imaging/Pathology - Reviewed Echocardiography reviewed 12/02/22: Left Ventricle Left ventricle size is normal. There is moderate concentric remodeling. Normal wall motion. Estimated EF is 60 - 65%. There is grade 2 diastolic dysfunction. Right Ventricle Right ventricle size is normal. Normal systolic function. Left Atrium Left atrium is mildly dilated. Systolic blunting in the pulmonary veins. Right Atrium Right atrium size is normal. IVC/SVC IVC diameter is greater than 21 mm and decreases greater than 50% during inspiration; therefore the estimated right atrial pressure is intermediate (~8 mmHg). Mitral Valve Mitral valve structure is normal. Trace transvalvular regurgitation. No stenosis. Tricuspid Valve Tricuspid valve structure is normal. Mild transvalvular regurgitation. Right ventricular systolic pressure is 40-45 mmHg. RA pressure is 5-10 mmHg. No stenosis. Aortic Valve Tricuspid. Mildly calcified cusps. No transvalvular regurgitation. Consistent with mild aortic stenosis. Pulmonic Valve Valve structure is normal. No transvalvular regurgitation. Ascending Aorta Normal sized annulus. Pericardium No pericardial effusion. Assessment/Plan: Jailyn Soler is a 57 year old female admitted with: Acute cholecystitis CAD s/p PCI 2020 HFpEF (diastolic) NYHA IIc not in acute exacerbation Mild aortic stenosis Pulmonary hypertension HTN HLD DM II Obesity BMI 35 Recommendations - TTE reviewed, no need to repeat at this time -given HFpEF would be cautious with IV fluid administration -please continue beta lieana in perioperative period -recommend continue statin -recommend continue lasix -OK to hold aspirin for procedure, would resume when able Pre-op cardiac risk stratification for cholecystectomy. Patient denies any symptoms suggestive of ACS, uncontrolled cardiac arrhythmia, decompensated heart failure or severe aortic stenosis or severe valvular heart disease. From cardiac standpoint, no contraindications to surgery. Patient is low risk for low to intermediate risk surgery. As they are asymptomatic from cardiac standpoint, would not recommend any further cardiac work up. Ho Score 0.4% risk 30 day MACE Thank you for your consult. Bhupinder Whitfield MD 03/18/2023 5:41 PM PGY 5 [employer] Associated attestation - Chirag Perrin MD - 03/18/2023 7:23 PM CDT I personally examined the patient on the date as specified in the note and agree with Dr. Whitfield's note. I actively participated in the decision-making process. Please see the fellow's note for additional details. Chirag Perrin MD, MS, [facility] [employer] [place] Department of Internal Medicine Division of Cardiology [facility] IM-CARDIOVASCULAR DISEASE [facility] 2023-03-18 10:43:36 Formatting of this n ote is different from the original. General Surgery History & Physical Chief Complaint: abdominal pain History of Present Illness: Jailyn Soler is a 57 year old female presenting with one day history of RUQ/epigastric pain. She states she developed the pain at 6pm after eating a sandwich. Reports the pain was a/w nausea and emesis, as well as subjective fever at home. Denies previous knowledge of gallstones, or similar symptoms in the past. She presented to [facility] where here symptoms were treated and w/u with U/S was concerning for cholecystitis. She was subsequently transferred to [place]. On arrival here, pt says her symptoms have largely resolved, though says she remains a little tender in her right upper abdomen. Past Medical History: Patient has a past medical history of Diabetes mellitus, Genital warts (11/24/2014), Hypertension, Nonrheumatic aortic valve stenosis (03/15/2023), and Thyroid disease. She has no past medical history of Abnormal uterine bleeding, Anemia, Anesthesia complication, Anxiety, Asthma, Autoimmune disorder, Blood dyscrasia, Blood transfusion, without reported diagnosis, Breast disorder, Cancer, Clotting disorder, Coronary atherosclerosis of unspecified type of vessel, [place] or graft, Depression, Endometriosis, Female infertility, Genital herpes, Hormone disorder, Human immunodeficiency virus (HIV) disease, Kidney disease, Leiomyoma of uterus, unspecified, Liver disease, Menstrual disorder, Osteoporosis, PID (pelvic inflammatory disease), Rh incompatibility, Seizures, Sickle cell anemia, Substance abuse, Superficial thrombophlebitis, antepartum(671.23), Trauma, Tuberculosis, or Urinary incontinence. Past Surgical History: Patient has a past surgical history that includes tubal ligation; appendectomy; colonoscopy (N/A, 06/13/2018); pars plana vitrectomy (Right, 12/16/2018); and endolaser photocoagulation (Right, 12/16/2018). Family History: Patient's family history includes Arthritis in her sister; Depression in her sister; Diabetes in her mother; High cholesterol in her mother; Hypertension in her mother. Social History: Patient reports that she has never smoked. She has been exposed to tobacco smoke. She has never used smokeless tobacco. She reports that she does not currently use alcohol. She reports that she does not use drugs. Review of systems: Constitutional: (-) fever, (-) chills, (-) weight change Integumentary: (-) rash, (-) lesion Head: (-) headache, (-) change in hearing, (-) change in vision Neck: (-) pain, (-) difficulty swallowing, (-) mass Hematologic: (-) bleeding disorder Pulmonary: (-) cough, (-) shortness of breath Cardiovascular: (-) chest pain, (-) palpitations, (-) syncope Gastrointestinal: (+) abdominal pain, (+), vomiting, (-) diarrhea Genitourinary: (-) dysuria, (-) increased frequency Endocrine: (-) heat intolerance, (-) cold intolerance, (-) polyuria, (-) polydipsia Neurologic: (-) numbness, (-) tingling, (-) weakness Back: (-) pain, (-) spasms Musculoskeletal: (-) muscle pain, (-) joint pain, (-) claudication Psychiatric: (-) anxiety, (-) depression, (-) psychiatric disorder Objective: Vitals: Temp: [36.9 ?C (98.5 ?F)-37.2 ?C (99 ?F)] Heart Rate (monitor): [70-94] Pulse: [69-94] Resp: [14-21] BP: (132-184)/(58-74) MAP (mmHg): [79-103] Physical exam: General: no apparent distress Neurologic: alert and oriented to person, place, and time Cardiac: regular rate and rhythm Chest: unlabored breathing Extremities: no gross deformities or injuries Vascular: pulses palpable and equal Abdomen: +tender in RUQ, no blanton sign; nondistended; no rebound, guarding, or point tenderness Skin: no rashes Laboratory: There are no current results on file for these tests and/or test for 1 year. Recent Labs 03/18/23 0137 WBC 10.09 HGB 10.6* PLT 401* Recent Labs 03/18/23 0137 NA 137 K 4.8 CL 100 TCO2 29 BUN 33* CREAT 1.43* GLU 275* MG 1.8 CA 9.1 Recent Labs 03/18/23 0137 BILIT 1.6* BILIUNCON 0.7 BILICONJ 0.0 ALT 71* AST 229* ALKPHOS 241* ALB 4.1 LIPASE 292* There are no current results on file for these tests and/or test for 1 year. Recent Labs 12/01/22 2243 03/18/23 0137 TROPNI 0.003 0.006 NTBNP 1,490* -- Recent Labs 11/02/22 0915 HGBA1C 6.8* Radiology: US GALL BLADDER Result Date: 03/18/2023 Impression: Cholelithiasis with a sonographic Blanton's sign by report. This is suggestive of acute cholecystitis, although specificity is decreased by the absence of gallbladder wall edema. The gallbladder is mildly distended. RL: 460 AFC: [id number] Assessment: The patient is presenting with radiographic evidence of cholelithiasis and a positive blanton's sign at [facility], as well as clinical history concerning for acute cholecystitis. Plan: - Admit to the surgical floor - NPO status with IVF - Plan for laparoscopic cholecystectomy - IV antibiotics- Zosyn - Pain & nausea control - Multimodal pain control The patient was seen and discussed with the attending surgeon try on baster. Raquel Horton MD General Surgery PGY-4 Associated attestation - Parish Benitez MD - 03/19/2023 12:09 AM CDT Attending Seen and examined by me with Dr Horton on 03/18/2023. Agree with the history, exam, and medical decision making in her note that was directed by me. Briefly, this is a 57 yo woman who presents with acute cholecystitis. This information was obtained from patient. On exam, she is tender in RUQ and asymptomatic from respiratory standpoint (covid positive) Principal Problem: Cholecystitis (03/18/2023) (POA: Yes) Diabetes CAD s/p PCI 2 years ago Asymptomatic covid-19 pos Her past medical history includes Past Medical History: Diagnosis Date Diabetes mellitus Genital warts 11/24/2014 Hypertension Nonrheumatic aortic valve stenosis 03/15/2023 Thyroid disease . Notable labs, imaging, and other tests that we requested include ultrasound of gallbladder, CBC, BMP, repeat LFT's. Her principal diagnosis for us is acute cholecystitis. Medical decision-making for her course is complicated by additional conditions including diabetes, hypertension, CAD, positive covid. Our plan is laparoscopic cholecystectomy with IOC today or tomorrow. Number and Complexity of Problems Addressed Principal Diagnosis: acute gudelia (Poses a threat to life or bodily function near term without intervention) Secondary Diagnosis: diabetes (Chronic with exacerbation, progression, or side effects of treatment) High - one acute or chronic illness/injury that poses a threat to life or bodily function near term without intervention Amount and Complexity of Data Reviewed and Analysed Reviewed external notes, Reviewed test results, Ordered new tests, and Assessed with an independent historian Risk of Complications and/or Morbidity/Mortality Abdominal pain, nausea, or vomiting and Decision for emergent or urgent major surgery CPT: 61185 - Admit/Obs Consult High (at least two of problems, amount of data, and risk of complications are high), 57 - Decision for Surgery Electronically signed by: Parish Benitez MD (Johnson) 03/19/2023 12:09 AM Trauma and Acute Care Surgery [facility] - Health History and Physical Notes Date/Time Note Provider Source 2023-03-18 15:49:19 Formatting of this n ote might be different from the original. 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 Performed by: Selvin Amin CRNA Authorized by: Chase Lance MD Indications and Patient Condition Indications for airway management: anesthesia Spontaneous ventilation: present Sedation level: deep Preoxygenated: yes Patient position: sniffing MILS maintained throughout Mask difficulty assessment: 1 - vent by mask No planned trial extubation Final Airway Details Final airway type: endotracheal airway Successful airway: ETT Cuffed: yes Successful intubation technique: direct laryngoscopy Endotracheal tube insertion site: oral Blade: Luz Blade size: #3 ETT size (mm): 7.0 Cormack-Lehane Classification: grade I - full view of glottis Placement verified by: chest auscultation and capnometry Cuff volume (mL): 7 Measured from: lips ETT to lips (cm): 21 Number of attempts at approach: 1 Ventilation between attempts: none Number of other approaches attempted: 0 NACR-NURSE CHEF SAUCIER,CERTIFIED REGISTERED NURSE CHEF SAUCIER [facility] - [facility] Notes Date/Time Note Provider Source Serafin Khalil [facility]2025-01-27 10:47:30 Recent medication changes made by nephrology. Med list updated to current list Renee RNProMedica Memorial HospitalAemvbp2157-07-36 09:31:17 Patient daughter Isela called regarding patients medications please contact her back to go over her list. [phone] [facility] HospitalWvuovi8791-11-85 12:33:45 Left voicemail for patient's daughter. Patient was last seen 03/2024. It would be better for patient to call directly with any questions or send a message through My Chart so that we can better assist. ICAL TECHNOLOGIST Raquel Samuels RNProMedica Memorial HospitalTjkinv9648-64-39 16:54:56 Jailyn Soler is a 59 year old female Pts daughter is calling and is asking to speak with Dr Pierce about pts last visit and how it went. Please advise. ICAL TECHNOLOGIST Ruth QuickAtrium Health SouthParkFauafd7579-63-55 00:00:00 [facility] 12:33:33 Add to this - over due for labs and visit [facility] HospitalIkhksz9690-86-28 12:07:33 Pss please reach out to patient for follow-up appointment. Must be seen for further refill. Last Refilled: Disp Refills Start End BAILEE insulin NPH and regular human 70-30 (HUMULIN 70/30 U-100 INSULIN) 100 unit/mL (70-30) injection 30 mL 3 11/02/2022 -- -- Sig: inject 15 Units under the skin 2 (two) times daily before breakfast and dinner. Sent to pharmacy as: HumuLIN 70/30 U-100 Insulin 100 unit/mL subcutaneous suspension (insulin NPH and regular human 70-30) Class: eRX Route: Subcutaneous Order: [id number] Date/Time Signed: 11/02/2022 08:38 E-Prescribing Status: Receipt confirmed by pharmacy (11/02/2022 8:38 AM CDT) Notes: Patient must be seen for further refills, Please review and fill if appropriate. Recent Visits Date Type Provider Dept 03/27/23 Office Visit Carisa Lizarraga FNP [facility] 12/07/22 Office Visit Carisa Lizarraga FNP [facility] Showing recent visits within past 540 days with a meds authorizing provider and meeting all other requirements Future Appointments No visits were found meeting these conditions. Showing future appointments within next 150 days with a meds authorizing provider and meeting all other requirements Leighann Diallo [facility]Xosnlb9473-67-85 09:11:48 Discussed with pt that Dr. Pierce's directions for her furosemide are to help protect her kidneys. Advised pt to follow instructions given by her supervisor knitting for her furosemide as long as he has received the same recent labs. Pt verbalized understanding. Aviva Renee [facility] SouthSvpdim4470-55-98 08:51:06 Jailyn Soler is a 59 year old female Pt daughter calling because Dr Pierce instructed to stop furosemide unless needed for swelling but pt's kidney Dr is telling her to take half a pill. Please advise Rosio Dislaformerly [facility]2024-09-17 00:00:00 Serafin Khalil [facility]2024-09-13 15:23:01 Patient notified of results. She verbalized understanding of results/recommendations via teach back. No further questions or concerns at this time. [facility] HospitalChzyfc7898-28-73 15:18:37 ----- Message from Keny Pierce MD sent at 04/11/2024 2:25 PM CDT ----- I reviewed her labs. BUN and creatinine are elevated. Recommend to hold Lasix. Watch volume status closely. Take Lasix only for leg swelling or other signs of volume overload. Her cholesterol is still elevated. Please add Zetia 10 mg daily. Please order fasting lipid panel and BMP to be done in 3 months. [facility] HospitalAfgwfg4802-54-59 00:00:00 Serafin Khalil [facility]2024-08-12 00:00:00 Serafin Khalil [facility]2024-06-19 00:00:00 Serafin Khalil [place] 187204-01-22 09:14:14 Images from the original note were not included. Notes: MUST BE SEEN FOR FURTHER REFILLS Last Refilled: furosemide 40 mg tablet Sig: Take 1 tablet by mouth in the morning. Disp: 90 tablet Refills: 1 Start: 08/18/2023 Class: eRX Non-formulary For: Bilateral leg edema Last ordered: 7 months ago (01/12/2023) by BETTY Cortez Cardiovascular: Loop Diuretics Ohvnin5508/18/2023 01:48 PM Protocol Details Cr in normal range and within 180 days Valid encounter within last 12 months K in normal range and within 180 days To be filled at: [facility] [address] [place] [address] Recent Visits Date Type Provider Dept 03/27/23 Office Visit Carisa Lizarraga FNP [facility] 12/07/22 Office Visit Carisa Lizarraga FNP [facility] 11/02/22 Office Visit Carisa Lizarraga FNP [facility] Showing recent visits within past 540 days with a meds authorizing provider and meeting all other requirements Future Appointments No visits were found meeting these conditions. Showing future appointments within next 150 days with a meds authorizing provider and meeting all other requirements [facility]2023-09-07 08:21:32 Cardiac Clearance faxed back to Dr. Chidi Estevez and scanned into chart along with fax confirmation. Raquel Naranjo MAProMedica Memorial HospitalTsxzys8035-63-48 17:41:12 Done [place] 148943-09-06 14:20:36 Cardiac Clearance request received from Dr. Chidi Estevez and placed in Dr Pierce's folder to be reviewed and signed. Last O/V: 12/11/22 Last EK03/18/23 ECHO: 12/02/22 Raquel Naranjo [place] 93157-08-25 14:49:44 Addendum created 03/23/23 1449 by Selvin Amin CRNA Intraprocedure Meds edited [place] 148943-08-24 09:20:48 Images from the original note were not included. patient was seen with Cardio on 03/15/23.Can you please place a follow up referral in chart. Thanks Yani. Last cardio visit dx list below Visit Diagnoses Chronic diastolic heart failure I50.32 Hyperlipidemia, unspecified hyperlipidemia type E78.5 Coronary artery disease involving [place] coronary artery of [place] heart without angina pectoris I25.10 Essential hypertension I10 Obesity (BMI 30-39.9) E66.9 Pulmonary hypertension I27.20 Nonrheumatic aortic valve stenosis I35.0 Yani Cowan MAProMedica Memorial HospitalZglwtg6297-33-96 15:58:15 Faxed 03.15.23 cardio post-appointment file to [facility]. Requested new referral for cardio Eliane Rene 03/21/2023 3:58 PM Eliane RenePatrick [place] 148943-08-22 02:14:34 Problem: Pain Goal: Control of pain at or below patient's documented comfort goal Outcome: Progressing as expected Goal: Reduction in pain sensation Outcome: Progressing as expected Problem: Discharge Planning Goal: Adequate for discharge Outcome: Progressing as expected Goal: Effective communication Outcome: Progressing as expected Problem: Cardiac Output - Decreased Goal: Cardiac output within specified parameters Outcome: Progressing as expected Goal: Absence of signs and symptoms of decreased cardiac output Outcome: Progressing as expected Problem: Discharge Planning Goal: Adequate for discharge Outcome: Progressing as expected Goal: Adequate to move to next level of care Outcome: Progressing as expected Problem: Activity Intolerance Goal: Improved activity tolerance Outcome: Progressing as expected Problem: Cardiac Output - Decreased Goal: Absence of signs and symptoms of decreased cardiac output Outcome: Progressing as expected Goal: Cardiac output within specified parameters Outcome: Progressing as expected Problem: Falls, Risk of Goal: Absence of falls Outcome: Progressing as expected Lisa Norman [facility]Pveqzn6794-81-16 19:32:12 Problem: Pain Goal: Control of pain at or below patient's documented comfort goal Outcome: Progressing as expected Goal: Reduction in pain sensation Outcome: Progressing as expected Problem: Falls, Risk of Goal: Absence of falls Outcome: Progressing as expected Alix Mcdowell [facility] SouthCjkzlr9542-65-09 11:23:42 Patient: Jailyn Soler Procedure Summary Date: 03/19/23 Room / Location: [address] LOCATION Anesthesia Start: 814 Anesthesia Stop: 1029 Procedure: CHOLECYSTECTOMY LAPAROSCOPY WITH CHOLANGIOGRAM (Abdomen) Diagnosis: Cholecystitis (Cholecystitis [K81.9]) Surgeons: Kolby Loomis MD Responsible Provider: Chase Lance MD Anesthesia Type: General ASA Status: 3 Anesthesia Type: General Last vitals BP 129/63 (03/19/23 1115) Temp 36.2 ?C (97.2 ?F) (08/21/23 1027) Pulse Resp 11 (03/19/23 1115) SpO2 100 % (03/19/23 1115) There were no known notable events for this encounter. Anesthesia Post Evaluation Patient participation: complete - patient participated Level of consciousness: awake and alert Pain management: satisfactory to patient Airway patency: patent Cardiovascular status: acceptable and blood pressure returned to baseline Respiratory status: acceptable Hydration status: acceptable [facility] AN-ANESTHESIOLOGY ANESTHESIOLOGISTProMedica Memorial HospitalEoyssd6924-94-20 08:50:42 FULL OPERATIVE NOTE Date of Surgery: 03/19/2023 Preoperative diagnosis: Acute Cholecystitis Postoperative diagnosis: Acute Cholecystitis Procedure: Laparoscopic cholecystectomy with intra operative cholangiogram Surgeons: Faculty: Dr. Loomis Resident: Dr. Horton Anesthesia: General endotracheal intubation EBL: 10 mL Sponge, needle, and instrument count: Correct at the end of the case X2 Packs, drains: None Specimen: Gallbladder Findings: inflamed gallbladder with stones IOC initially concerning for partially obstructing stone in distal CBD near the ampulla, glucagon given and duct power flushed with saline, cholangiogram without any filling defect and good filling of the duodenum. Complications: None Indications: Jailyn Soler is a 57 year old female who presented with a complaint of right upper quadrant abdominal pain. Clinical and radiological evidence demonstrated acute cholecystitis. Diagnosis and treatment options were discussed with the patient, the patient wished to proceed withsurgery. Procedure: Risks, benefits, alternatives were explained to the patient; all questions were answered; and informed consent was obtained. The patient was brought to the operating room and placed in the supine position on the operating room table. IV sedation and general anesthesia with endotracheal intubation was performed. A time out was performed verifying patient data, allergies, and planned procedure. Preoperative antibiotics were administered prior to skin incision. SCD's were placed, initiated before induction, and used throughout the operative procedure. The patient’s abdomen was then prepped anddraped in the standard sterile fashion. A supra-umbilical skin incision was made and carried down to the fascia. The fascia was incised sharply with a #11 scalpel. 0-Vicry stay sutures were placed. The peritoneum was entered bluntly and the anterior abdominal wall was swept. There was no bowel adherent to the anterior abdominal wall. TheHasson port was then placed and secured to the fascia. The abdomen was then insufflated to 12 mm mercury with CO2 with no hemodynamic consequences, and the camera was placed. Upon visualization of the abdominal cavity, the liver appeared normal and the gallbladder was acutely inflamed. The patient was then placed in the reverse Trendelenburg position and rotated to the left. A 5 mm trocar was placed in the subxyphoid region at the midline and two 5 mm trocars below the right costal margin in the mid clavicular and anterior axillary lines, all under direct vision and after the use of local anesthesia. The gallbladder was retracted superiorly over the liver and the infundibulum retracted laterally. Blunt dissection with a [place] dissector was performed to identify the cystic duct and cystic artery. Both the cystic duct and cystic artery were readily identified, dissected, and skeletonized usingthe [place] dissector. The critical view was obtained. Attention was first turned to the cystic duct. A clip was placed proximally near the infundibulum. The duct was partially transected. The Olsenclamp was used to introduce the cholangiocatheter. The Espinal clamp was secured around the duct. Contrast dye was injected under fluoroscopy. Imaging was initially concerning for a partially obstructing stone in distal CBD near the ampulla, glucagon given and duct power flushed with saline, cholangiogram without any filling defect and good filling of the duodenum. There was also filling of the right and left hepatic ducts. The cholangiocatheter was removed. Two clips were placed across the distal cystic duct. The cystic duct was then divided using laparoscopic scissors. Attention was then turned to the cystic artery. Two clips were placed across the proximal cystic artery, one clip was placed across the distal cystic artery close to the gall bladder wall. The cystic artery was then divided with laparoscopic scissors. The gallbladder was then dissected from the gallbladder fossa using electrocautery. The gallbladder was then placed in an endoscopicretrieval bag and removed via the umbilical port. The gallbladder was passed of the sterile field as a surgical specimen. The patient's right upper quadrant was then copiously irrigated with sterile s clarence, all irrigation was suctioned out. Small bleeding points in the liver bed were controlled with cautery with excellent control. The clips across the cystic duct and cystic artery were noted to be intact without evidence of bile leakage or bleeding. The trocars were all removed under direct vision with evacuation of the pneumoperitoneum. The fascia at the 11 mm port site was closed using 0-Vicryl suture. All skin incisions were then closed using 4-0 Monocryl in a subcuticular fashion. Dermabond was applied to all skin incisions. The patient was then awakened from general anesthesia, extubated in the operating room, and then transferred to the recovery room in satisfactory condition. The counts were correct at the end of the case. The patient received no blood products. Faculty surgeon was present and scrubbed for the entirety of the operative procedure. Raquel Horton MD General Surgery PGY-4 Associated attestation - Kolby Loomis MD - 03/19/2023 7:48 PM CDT I was present and supervised the entire procedure. I have reviewed the operative note and agree Kolby Loomis MD [facility] HospitalAlchsa8744-53-89 06:16:01 Name/ MRN / Age / Gender: Jailyn Soler, [id number] 57 year old female BMI: Estimated body mass index is 35.15 kg/m? as calculated from the following: Height as of this encounter: 1.524 m (5'). Weight as of this encounter: 81.6 kg (180 lb). Allergies: Patient has no known allergies. Last Vitals: BP Readings from Last 1 Encounters: 03/19/23 111/63 Pulse Readings from Last 1 Encounters: 03/19/23 80 SpO2 Readings from Last 1 Encounters: 03/19/23 97% Date of Surgery: 03/19/2023 Surgeon: Kolby Loomis MD Procedure: CHOLECYSTECTOMY LAPAROSCOPY WITH CHOLANGIOGRAM (Abdomen) OR Location: [facility] Anesthesia Preop Eval (physical exam) Anesthesia Preop: Chart Review [facility] questionnaire answers not incorporated [facility] Communication: 57 yo F presenting with one day history of RUQ pain after food with radiographic evidence of cholelithiasis and a positive blanton's sign at [facility]. Covid (+) Anesthesia History Previous Anesthetics/Airways Cardiovascular Comments: Echo 12/02/2022 Left ventricle size is normal. There is moderate concentric remodeling. Normal wall motion. Estimated EF is 60 - 65%. There is grade 2 diastolic dysfunction. Right ventricle size is normal. Normal systolic function. Left atrium is mildly dilated. Systolic blunting in the pulmonary veins. Right atrium size is normal. IVC diameter is greater than 21 mm and decreases greater than 50% during inspiration; therefore theestimated right atrial pressure is intermediate (~8 mmHg). Mitral valve structure is normal. Trace transvalvular regurgitation. No stenosis. Tricuspid valve structure is normal. Mild transvalvular regurgitation. Right ventricular systolic pressure is 40-45 mmHg. RA pressure is 5-10 mmHg. No stenosis. Aortic Valve: Tricuspid. Mildly calcified cusps. No transvalvular regurgitation. Consistent with mild aortic stenosis. Pulmonic Valve: Valve structure is normal. No transvalvular regurgitation. Ascending Aorta:Normal sized annulus. No pericardial effusion. HFpEF. Takes Lasix daily. (+) Hypertension (+) Echocardiogram results (+) CAD (s/p PCI 2020) (+) Valvular problems/murmurs (Mild aortic stenosis) Pulmonary Comments: (+) Pulmonary HTN (+) COVID-19 within the past 6 weeks (+) 03/18/23 Neuro/Musculoskeletal (+) Obesity GI/Hepatic Comments: 03/18/23 01:37 ALK PHOS: 241 (H) ALTv: 71 (H) AST(SGOT): 229 (H) LIPASE: 292 (H) Hematology Comments: 03/18/23 01:37 WBC x10^3: 10.09 HGB: 10.6 (L) HCT: 31.6 (L) PLT x10^3: 401 (H) Renal Comments: 03/18/23 01:37 NA: 137 K: 4.8 GLUCOSE: 275 (H) CREATININE: 1.43 (H) eGFR: 38.1 (+) Renal disease and CKD Skin Endo/Other (+) Diabetes Mellitus Other Comments: (+) Genital 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 Hold on DOS. Phentermine: Alert [facility] anesthesiologist SGLT2 Inhibitors: "gliflozins" to be held for 3 days prior to elective surgeries MAC Cases: Continue taking NIKIA inhibitors and ARBs ASA Classification ASA: 3 Current Medications: No outpatient medications have been marked as taking for the 03/18/23 encounter (Hospital Encounter). Previous Surgeries: Past Surgical History: Procedure Laterality Date • APPENDECTOMY • COLONOSCOPY N/A 06/13/2018 Surgeon: Chevy Reeder MD; Location: [facility] Location • ENDOLASER PHOTOCOAGULATION Right 12/16/2018 Surgeon: Kristopher Kyle MD; Location: [place] OR Location • PARS PLANA VITRECTOMY Right 12/16/2018 Surgeon: Kristopher Kyle MD; Location: [place] OR Location • TUBAL LIGATION Anesthesia Physical Exam General no apparent distress and alert and oriented x 3 Neuro/Psych neurological Nonfocal Dental no notable dental hx Abdominal GI exam normal (+) abdomen soft and benign Airway Mallampati score:II TM distance:> 5 cm Neck ROM: full Mouth opening:normal Extremity Normal extremity Pulmonary pulmonary exam normal and bilateral clear to auscultation Other Cardiovascular cardiovascular exam normalRhythm:Regular Rate: Normal Anesthesia Plan ASA Status: 3 Plan discussed during pre-op evaluation: General Anesthetic plan on DOS: General Plan to include: IV induction and ETT Anesthesia plan discussed with: patient or renewals representative Post-Operative Analgesia: routine analgesia & antiemetics Recovery Plan: PACU Additional comments: [facility] AN-ANESTHESIOLOGY AN[facility]IOLOGISTPro[facility] [id number] 06:02:27 Problem: Pain Goal: Control of pain at or below patient's documented comfort goal Outcome: Progressing as expected Goal: Reduction in pain sensation Outcome: Progressing as expected Problem: Discharge Planning Goal: Adequate for discharge Outcome: Progressing as expected Goal: Effective communication Outcome: Progressing as expected Problem: Cardiac Output - Decreased Goal: Cardiac output within specified parameters Outcome: Progressing as expected Goal: Absence of signs and symptoms of decreased cardiac output Outcome: Progressing as expected Problem: Discharge Planning Goal: Adequate for discharge Outcome: Progressing as expected Goal: Adequate to move to next level of care Outcome: Progressing as expected Problem: Activity Intolerance Goal: Improved activity tolerance Outcome: Progressing as expected Problem: Cardiac Output - Decreased Goal: Absence of signs and symptoms of decreased cardiac output Outcome: Progressing as expected Goal: Cardiac output within specified parameters Outcome: Progressing as expected Problem: Falls, Risk of Goal: Absence of falls Outcome: Progressing as expected Chantal Interiano [place] [id number] 14:20:37 Problem: Pain Goal: Control of pain at or below patient's documented comfort goal Outcome: Progressing as expected Goal: Reduction in pain sensation Outcome: Progressing as expected Problem: Discharge Planning Goal: Adequate for discharge Outcome: Progressing as expected Goal: Effective communication Outcome: Progressing as expected Problem: Cardiac Output - Decreased Goal: Cardiac output within specified parameters Outcome: Progressing as expected Goal: Absence of signs and symptoms of decreased cardiac output Outcome: Progressing as expected Problem: Discharge Planning Goal: Adequate for discharge Outcome: Progressing as expected Goal: Adequate to move to next level of care Outcome: Progressing as expected Problem: Activity Intolerance Goal: Improved activity tolerance Outcome: Progressing as expected Problem: Cardiac Output - Decreased Goal: Absence of signs and symptoms of decreased cardiac output Outcome: Progressing as expected Goal: Cardiac output within specified parameters Outcome: Progressing as expected Problem: Falls, Risk of Goal: Absence of falls Outcome: Progressing as expected [facility] Chelita Gonzalez [facility] 09[facility]36:48 Report given to Miriam ROSE [facility] Tran Burns [facility]nh[facility]r2092-48-37 09:24:04 Attempted to call report, no answer at this time. [place] [id number] 08:50:00 Surgery at bedside0 [facility]ly [facility]2023-08-20 08:32:30 Surgery returned page and aware of patient arrival T [place] [id number] 08:09:02 Jailyn Soler is a 57 year old female That presents to ED via EMS as a transfer from [place] with a cc of cholelithiasis and COVID+. PMHX of glaucoma and blind in both eyes, HTN, DM, cardiac stent 2 years prior. Unlabored respirations. [place] [address]48-08-20 08:03:43 Jailyn Soler is a 57 year old female presenting to ED transferred from [facility] accepted by surgery forcholecystitis. Patient also covid +. Surgery paged in triage. Patient to room for further eval [facility] Mabel Noriega [place] [id number] 06:47:13 Patient transferred to [facility] ED for diagnosis of COVID, N/V, acute cholecystitis, and acute biliary pancreatitis Patient agrees to transfer/admit plan and verbalized understanding of plan of care, family aware ofplan Patient awake alert, oriented, resp reg unlabored, skin w/d PIV patent, no s/s infiltration noted, No adverse reaction to medications given while in ED. Report given to [facility] EMS personnel T Melody Norman RNPatrick [place] [id number] 05:47:27 Report given to Carla ROSE at [facility] [place] [address]-08-20 00:44:00 Patient's daughter states: "At around 7:30PM after eating dinner she started having abdominal pain,vomiting, and diarrhea. She vomited 3x tonight and passed loose stools 3x. She took Pepto at [id number] but no relief." Lavern Lozada [facility]yk[facility]r2053-13-35 00:43:00 [facility] Emergency Department Note Patient Name: Jailyn Soler Date of : 1965 57 year old female Treatment Room: [place] [address] Primary Care Physician: Carisa Lizarraga Patient Escorted by: Self [9] Mode of Arrival: Personal means [1] EMS Treatment Prior to ED Arrival: [employer] treatment: None Travel and Exposure Screening: Symptoms Does patient have any of these symptoms?: (not recorded) Exposure Screening Has patient had contact with someone with a communicable disease in the last month?: (not recorded) Diseases exposed to:: (not recorded) Is Patient ?: (not recorded) Exposure Date: (not recorded) Chief Complaint: Chief Complaint Patient presents with • Abdominal Pain • Vomiting 3x • Diarrhea 3x • Nausea History of Present Illness: This is brought in by her daughter for evaluation of abdominal pain, nausea, vomiting, and diarrhea. Patient states symptoms began at approximately 730 this evening with epigastric pain, vomiting x3 and diarrhea x3. At approximately 6 PM she had a ham sandwich and fruit. She admits fever and body aches 2 days ago. Symptoms resolved the following day. She states she did some type of a home swab test that was positive, but she is unsure what it was. Past Medical History/Immunizations: Past Medical History: Diagnosis Date • Diabetes mellitus • Genital warts 11/24/2014 • Hypertension • Nonrheumatic aortic valve stenosis 03/15/2023 • Thyroid disease Tetanus received in last 5 years: Unknown Allergies: No Known Allergies Past Social History: Tobacco Use Never smoked or used smokeless tobacco. Passive Exposure: Current; ( CURRENT SMOKER) Alcohol Use Not Currently. Drug Use Never. Sexual Activity Sexually active; Partners: Male. Past Surgical History: Past Surgical History: Procedure Laterality Date • APPENDECTOMY • COLONOSCOPY N/A 06/13/2018 Surgeon: Chevy Reeder MD; Location: Endoscopy () OR Location • ENDOLASER PHOTOCOAGULATION Right 12/16/2018 Surgeon: Kristopher Kyle MD; Location: [place] [facility] • PARS PLANA VITRECTOMY Right 12/16/2018 Surgeon: Kristopher Kyle MD; Location: [place] Location • TUBAL LIGATION Review of Systems: Review of Systems Constitutional: Positive for fever. Respiratory: Negative for cough and shortness of breath. Cardiovascular: Negative for chest pain. Gastrointestinal: Positive for abdominal pain, diarrhea, nausea and vomiting. Musculoskeletal: Positive for myalgias. Physical Exam: ED Triage Vitals [03/18/23 0044] Weight 81.6 kg (180 lb) Actual or estimated Estimated by patient/family report Height 1.524 m (5') BP (!) 179/74 Pulse 90 Resp 20 Temp 37.1 ?C (98.8 ?F) Temp source Oral SpO2 100 % Measured on Room air Physical Exam Vitals and nursing note reviewed. Constitutional: General: She is not in acute distress. Appearance: Normal appearance. She is well-developed. She is ill-appearing. She is not diaphoretic. HENT: Head: Normocephalic and atraumatic. Nose: Nose normal. Mouth/Throat: Mouth: Mucous membranes are moist. Neck: Trachea: No tracheal deviation. Cardiovascular: Rate and Rhythm: Normal rate and regular rhythm. Heart sounds: Normal heart sounds. No murmur heard. No friction rub. Pulmonary: Effort: Pulmonary effort is normal. No respiratory distress. Breath sounds: Normal breath sounds. No wheezing or rales. Chest: Chest wall: No tenderness. Abdominal: General: Bowel sounds are normal. There is no distension. Palpations: Abdomen is soft. Tenderness: There is abdominal tenderness (epitagstric and upper abdomen). There is no guarding or rebound. Musculoskeletal: General: No tenderness or deformity. Normal range of motion. Cervical back: Normal range of motion. Lymphadenopathy: Cervical: No cervical adenopathy. Skin: General: Skin is warm and dry. Coloration: Skin is not pale. Findings: No erythema or rash. Neurological: Mental Status: She is alert and oriented to person, place, and time. Coordination: Coordination normal. Radiology: No orders to display Lab Results: Lab Results CBC WITH DIFF - Abnormal Result Value Ref Range WBC 10.09 4.30 - 11.10 10*3/?L RBC 3.91 (*) 3.93 - 5.25 10*6/?L HGB 10.6 (*) 11.6 - 15.0 g/dL HCT 31.6 (*) 35.7 - 45.2 % MCV 80.8 80.6 - 95.5 fL MCH 27.1 25.9 - 32.8 pg MCHC 33.5 31.6 - 35.1 g/dL RDW-SD 39.3 39.0 - 49.9 fL RDW-CV 13.4 12.0 - 15.5 % PLT 401 (*) 166 - 358 10*3/?L MPV 9.3 (*) 9.5 - 12.9 fL NRBC/100 WBC 0.0 0.0 - 10.0 /100 WBCs NRBC x10^3 <0.01 10*3/?L GRAN MAT (NEUT) % 89.7 % IMM GRAN % 0.40 % LYMPH % 8.4 % MONO % 0.6 % EOS % 0.4 % BASO % 0.5 % GRAN MAT x10^3(ANC) 9.05 (*) 1.88 - 7.09 10*3/uL IMM GRAN x10^3 0.04 0.00 - 0.06 10*3/uL LYMPH x10^3 0.85 (*) 1.32 - 3.29 10*3/uL MONO x10^3 0.06 (*) 0.33 - 0.92 10*3/uL EOS x10^3 0.04 0.03 - 0.39 10*3/uL BASO x10^3 0.05 0.01 - 0.07 10*3/uL COMP. METABOLIC PANEL (92122) - Abnormal NA 137 135 - 145 mmol/L K 4.8 3.5 - 5.0 mmol/L CL 100 98 - 108 mmol/L CO2 TOTAL 29 23 - 31 mmol/L AGAP 8 2 - 16 BUN 33 (*) 7 - 23 mg/dL GLUCOSE 275 (*) 70 - 110 mg/dL CREATININE 1.43 (*) 0.50 - 1.04 mg/dL TOTAL BILI 1.6 (*) 0.1 - 1.1 mg/dL CALCIUM 9.1 8.6 - 10.6 mg/dL T PROTEIN 8.0 6.3 - 8.2 g/dL ALBUMIN 4.1 3.5 - 5.0 g/dL ALK PHOS 241 (*) 34 - 122 U/L ALTv 71 (*) 5 - 35 U/L AST(SGOT) 229 (*) 13 - 40 U/L eGFR 38.1 mL/min/1.73m2 URINALYSIS - Abnormal APPEARANCE Clear Clear COLOR Yellow Yellow PH 7.5 4.8 - 8.0 SP GRAVITY 1.020 1.003 - 1.030 GLU U QUAL 250 mg/dL (*) Negative BLOOD Trace (*) Negative KETONES Negative Negative PROTEIN >300 mg/dL (*) Negative UROBILIN 0.2 mg/dL 0-1.0 mg/dL BILIRUBIN Negative Negative NITRITE Negative Negative LEUK LAUREL Negative Negative RBC/HPF 5 (*) 0 - 3 HPF WBC/HPF 5 0 - 5 HPF BACTERIA Few (*) Negative SQ EPITH 3 (*) <=1 HPF HYAL CAST 2 <=2 LPF LIPASE - Abnormal LIPASE 292 (*) 0 - 220 U/L COVID-19 (ID NOW RAPID TESTING) - Abnormal SARS-CoV-2 Rapid ID NOW Positive (*) Not Detected MAGNESIUM - Normal MAGNESIUM 1.8 1.7 - 2.4 mg/dL TROPONIN I - Normal TROPONIN I 0.006 <=0.034 ng/mL RAPID INFLUENZA A/B - Normal Rapid Influenza A Negative Negative Rapid Influenza B Negative Negative EKG: If EKG completed, see Procedure Note. Orders and Treatments: Orders Placed This Encounter Procedures • US GALL BLADDER • CBC WITH DIFF • COMP. METABOLIC PANEL (31517) • URINALYSIS • MAGNESIUM • LIPASE • TROPONIN I • COVID-19 (ID NOW TESTING) • RAPID INFLUENZA A/B • LAB ONLY COVID INTERPRETATION Orders Placed This Encounter Medications • ondansetron (ZOFRAN (PF)) injection 4 mg • ondansetron (ZOFRAN-ODT) disintegrating tablet 4 mg • NaCl 0.9% (NS) bolus infusion 500 mL First Provider Eval: ED Events Date/Time Event User Comments 03/18/23 2666 Medical Screening Begins KIARA ZARCO -- 03/18/23 0056 First Provider Evaluation KIARA ZARCO -- No notes of EC Admission Criteria type on file. ED COURSE Diagnosis/Impression as of 03/18/23 0437 Nausea and vomiting, unspecified vomiting type COVID Acute cholecystitis due to biliary calculus Acute biliary pancreatitis without infection or necrosis Pt with covid Also with epigastric pain and elevated liver functions. No h/o etoh. AST and ALT functions nl september 2022, elevated in November, now with marked increase. Alk phos chronically elevated. Vomiting and diarrhea resolved in ED. Only 250ml NS given due to h/o CHF and GI symptoms improvming. U/s gall bladder ordered in ED Care turned over to DR Samuels at end of shift. Plan to d/w home if gall bladder u/s normal. Will need out pt re-eval of liver fxn. Discussed with pt and her daughter. If us gall bladder abnormal, DR Samuels will provide plan of care. Procedures: Procedures MDM: Medical Decision Making Amount and/or Complexity of Data Reviewed Labs: ordered. Radiology: ordered. Risk Prescription drug management. Flowsheet Documentation: Scoring Tools: No data recorded Disposition/Condition: pending ED Disposition None Electronically signed by: Lelia Hammond PAC 03/18/23 0258 Associated attestation - Joaquín Samuels MD - 03/18/2023 6:06 AM CDT Addendum I was personally available for consultation in the Emergency Department during this encounter and patient evaluation by Cynthia ALVARADO [facility] HospitalZrzyjo1026-32-32 00:43:00 Medical Decision Making Case signed out to me by Marilou ALVARADO, awaiting results of her GB U/S. Results became available as follows : IMAGING STUDIES: Hospital Encounter on 03/18/23 -US GALL BLADDER: Narrative Ordering physician: Lelia HAMMOND Indication: Right upper quadrant pain Comparison: Ultrasound dated 07/26/2021 Technique: Grayscale and color Doppler images of the right upper quadrant were performed. Findings: The visualized aorta and IVC are normal in caliber. There is normal color-flow in the main portal vein, with a normal vascular waveform. There is normal echogenicity in the liver, without definite focal lesion. The visualized pancreas is within normal limits. There are small stones in the gallbladder without wall edema, but there is a sonographic Blanton's sign by report. The common bile duct is nondilated at 5 mm. Impression Impression: Cholelithiasis with a sonographic Blanton's sign by report. This is suggestive of acute cholecystitis, although specificity is decreased by the absence of gallbladder wall edema. The gallbladder is mildly distended. RL: [id number] AFC: [id number] Results of her lab work reviewed: LABS: Recent Results (from the past 24 hour(s)) -CBC WITH DIFF: Collection Time: 03/18/23 1:37 AM Result Value Ref Range WBC 10.09 4.30 - 11.10 10*3/?L RBC 3.91 (L) 3.93 - 5.25 10*6/?L HGB 10.6 (L) 11.6 - 15.0 g/dL HCT 31.6 (L) 35.7 - 45.2 % MCV 80.8 80.6 - 95.5 fL MCH 27.1 25.9 - 32.8 pg MCHC 33.5 31.6 - 35.1 g/dL RDW-SD 39.3 39.0 - 49.9 fL RDW-CV 13.4 12.0 - 15.5 % PLT 401 (H) 166 - 358 10*3/?L MPV 9.3 (L) 9.5 - 12.9 fL NRBC/100 WBC 0.0 0.0 - 10.0 /100 WBCs NRBC x10^3 <0.01 10*3/?L GRAN MAT (NEUT) % 89.7 % IMM GRAN % 0.40 % LYMPH % 8.4 % MONO % 0.6 % EOS % 0.4 % BASO % 0.5 % GRAN MAT x10^3(ANC) 9.05 (H) 1.88 - 7.09 10*3/uL IMM GRAN x10^3 0.04 0.00 - 0.06 10*3/uL LYMPH x10^3 0.85 (L) 1.32 - 3.29 10*3/uL MONO x10^3 0.06 (L) 0.33 - 0.92 10*3/uL EOS x10^3 0.04 0.03 - 0.39 10*3/uL BASO x10^3 0.05 0.01 - 0.07 10*3/uL -COMP. METABOLIC PANEL (89568): Collection Time: 03/18/23 1:37 AM Result Value Ref Range NA 137 135 - 145 mmol/L K 4.8 3.5 - 5.0 mmol/L CL 100 98 - 108 mmol/L CO2 TOTAL 29 23 - 31 mmol/L AGAP 8 2 - 16 BUN 33 (H) 7 - 23 mg/dL GLUCOSE 275 (H) 70 - 110 mg/dL CREATININE 1.43 (H) 0.50 - 1.04 mg/dL TOTAL BILI 1.6 (H) 0.1 - 1.1 mg/dL CALCIUM 9.1 8.6 - 10.6 mg/dL T PROTEIN 8.0 6.3 - 8.2 g/dL ALBUMIN 4.1 3.5 - 5.0 g/dL ALK PHOS 241 (H) 34 - 122 U/L ALTv 71 (H) 5 - 35 U/L AST(SGOT) 229 (H) 13 - 40 U/L eGFR 38.1 mL/min/1.73m2 -URINALYSIS: Collection Time: 03/18/23 1:37 AM Result Value Ref Range APPEARANCE Clear Clear COLOR Yellow Yellow PH 7.5 4.8 - 8.0 SP GRAVITY 1.020 1.003 - 1.030 GLU U QUAL 250 mg/dL (A) Negative BLOOD Trace (A) Negative KETONES Negative Negative PROTEIN >300 mg/dL (A) Negative UROBILIN 0.2 mg/dL 0-1.0 mg/dL BILIRUBIN Negative Negative NITRITE Negative Negative LEUK LAUREL Negative Negative RBC/HPF 5 (H) 0 - 3 HPF WBC/HPF 5 0 - 5 HPF BACTERIA Few (A) Negative SQ EPITH 3 (H) <=1 HPF HYAL CAST 2 <=2 LPF -MAGNESIUM: Collection Time: 03/18/23 1:37 AM Result Value Ref Range MAGNESIUM 1.8 1.7 - 2.4 mg/dL -LIPASE: Collection Time: 03/18/23 1:37 AM Result Value Ref Range LIPASE 292 (H) 0 - 220 U/L -TROPONIN I: Collection Time: 03/18/23 1:37 AM Result Value Ref Range TROPONIN I 0.006 <=0.034 ng/mL -COVID-19 (ID NOW TESTING): Collection Time: 03/18/23 1:44 AM Specimen: NASOPHARYNGEAL SWAB Result Value Ref Range SARS-CoV-2 Rapid ID NOW Positive (A) Not Detected -RAPID INFLUENZA A/B: Collection Time: 03/18/23 1:44 AM Specimen: NASOPHARYNGEAL SWAB Result Value Ref Range Rapid Influenza A Negative Negative Rapid Influenza B Negative Negative Clinical Decision: Due to lack of bed at this facility, Mrs Soler will be transferred to another [facility] [place] for further evaluation and treatment by General Surgery. .c Problems Addressed: Acute biliary pancreatitis without infection or necrosis: self-limited or minor problem Acute cholecystitis due to biliary calculus: complicated acute illness or injury with systemic symptoms that poses a threat to life or bodily functions COVID: complicated acute illness or injury with systemic symptoms Nausea and vomiting, unspecified vomiting type: complicated acute illness or injury with systemic symptoms that poses a threat to life or bodily functions Amount and/or Complexity of Data Reviewed Independent Historian: Details: Daughter at bed sided provided all the information about her mother's symptoms and PMH Labs: ordered. Decision-making details documented in ED Course. Radiology: ordered and independent interpretation performed. Decision-making details documented in ED Course. Discussion of management or test interpretation with external provider(s): Case discussed with Eligibility Supervisor Surgeon at [facility], who agreed to accept the transfer, to continue further evaluation and treatment Risk Prescription drug management. Parenteral controlled substances. Drug therapy requiring intensive monitoring for toxicity. Decision regarding hospitalization. Diagnosis or treatment significantly limited by social determinants of health. Joaquín Samuels MD 03/18/23 0439 [facility] - [id number] 09:25:01 BMP results shared, discussed low potassium diet, discussed symptoms of fluid retention due to decreasing Lasix dosage Verbalized understanding Mary Delgado RNUTMB - [id number] 13:45:00 Images from the original note were not included. Venipuncture collection performed by clean technique on the right hand. Total of 3 attempts were made. Slight pressure and a bandage/dressing were applied to the site(s). The patient experienced no complications. The following specimens were processed according to instructions and sent to [facility] laboratories per lab order on 03/15/2023 : LT BLUE SST 1 RED LAV PPT DK GREEN (LiHep) DK GREEN (SodH) DUONG DK BLUE (K2) DK BLUE (S) ACD Blood Culture NIPT/NTD [id number] 14:30:07 Images from the original note were not included. Requested Renewals aspirin 81 mg chewable tablet Sig: Take 1 tablet by mouth in the morning. Disp: 30 tablet Refills: 2 Start: 02/26/2023 Class: eRX Non-formulary For: Dyslipidemia Last ordered: 3 months ago (11/02/2022) by BETTY Cortez Analgesics: NSAIDS Failed 02/26/2023 01:11 PM Protocol Details Cr in normal range and within 360 days Valid encounter within last 12 months To be filled at: [facility] [address] [place] [address] Recent Visits Date Type Provider Dept 12/07/22 Office Visit Carisa Lizarraga FNP [facility] 11/02/22 Office Visit Carisa Lizarraga FNP [facility] Showing recent visits within past 540 days with a meds authorizing provider and meeting all other requirements Future Appointments Date Type Provider Dept 05/04/23 Appointment Carisa Lizarraga FNP [facility] Showing future appointments within next 150 days with a meds authorizing provider and meeting all other requirements Loretta Wiggins [facility]
[2024-11-20] MEDS ORDERED: NA CHLORIDE 0.9% 500 ML ONE (12:24)
[2024-11-20] MEDS ORDERED: ASPIRIN 81 MG CHEWABLE TABLET ONE (12:24)
[2024-11-20] MEDS ORDERED: CLOPIDOGREL 75 MG TABLET ONE (12:25)
[2024-11-20] MEDS ORDERED: HEPARIN 5000 UNIT/ML 1 ML VIAL ONE (12:25)
[2024-11-20] MEDS ORDERED: HEPARIN/D5W 25,000 UNIT/500 ML BAG IV ONE (12:26)
[2024-11-20] MEDS ORDERED: TENECTEPLASE 50 MG/10 ML VIAL IV ONE (12:26)
[2024-11-20] MEDS ORDERED: ONDANSETRON 4 MG/2 ML VIAL ONE (12:33)
[2024-11-20] MEDS ORDERED: FAMOTIDINE 20 MG/2 ML VIAL IV ONE (12:34)
[2024-11-20] MEDS ORDERED: FENTANYL CITR 100 MCG/2 ML ONE (12:34)
[2024-11-20 12:39] LABS: Absolute Basophils 0.1 K/uL (0-0.5); Absolute Eosinophils 0.4 K/uL (0-0.5); Absolute Monocytes 0.6 K/uL (0.1-1.3); Absolute Neutrophil 8.1 K/uL (1.8-8.0); Basophils % 1.2 % (0-1.3); Eosinophils % 3.1 % (0-4.4); Hematocrit 35.3 % (36.0-45.0); Lymphocytes % 18.2 % (15.3-44.8); MCH 27.6 pg (27.0-35.0); MCV 81.1 fL (80-100); MPV 7.9 fL (7.6-11.3); Monocytes % 5.7 % (3.3-12.3); Neutrophils % 71.8 % (41.7-73.7); Nucleated Red Blood Cells % 0.1 % (0-0); Platelets 388 thou/uL (152-406); RBC Red Blood Cell Count 4.35 M/uL (3.86-4.86); Red Cell Distribution Width 14.5 % (12.1-15.2)
--- NOTE | 2024-11-20 12:40 | EDPHYS ---
Physician Documentation [facility] Name: Jailyn Terry Age: 59 yrs Sex: Female : 1965 Arrival Date: 11/20/2024 Time: 11:57 Bed 6 Private MD: ED Physician Arik Barrett HPI: 11/20 12:26 This 59 yrs old Female presents to ER via EMS with complaints of Chest Pain. savannah 12:26 The patient or guardian reports chest pain that is located primarily in the substernal savannah area, anterior chest wall. Onset: at 06:00. The pain radiates to both shoulders. Associated signs and symptoms: Pertinent positives: shortness of breath. The chest pain is described as a heaviness, a pressure. Modifying factors: The symptoms are alleviated by nothing. the symptoms are aggravated by nothing. Modifying factors: the symptoms are aggravated by. Severity of pain: At its worst the pain was moderate in the emergency department the pain is unchanged. The patient has experienced similar episodes in the past. 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 - Infectious Disease History:: Denies. - Social history:: Smoking status: Patient denies any tobacco usage or history of. ROS: 12:28 Constitutional: Negative for fever, chills, and weight loss, Eyes: Negative for injury, savannah pain, redness, and discharge, ENT: Negative for injury, pain, and discharge, Neck: Negative for injury, pain, and swelling, Respiratory: Negative for shortness of breath, cough, wheezing, and pleuritic chest pain, Abdomen/GI: Negative for abdominal pain, nausea, vomiting, diarrhea, and constipation, Back: Negative for injury and pain, : Negative for injury, bleeding, discharge, and swelling, MS/Extremity: Negative for injury and deformity, Skin: Negative for injury, rash, and discoloration, Neuro: Negative for headache, weakness, numbness, tingling, and seizure, Psych: Negative for depression, anxiety, suicide ideation, homicidal ideation, and hallucinations, Allergy/Immunology: Negative for hives, rash, and allergies, Endocrine: Negative for neck swelling, polydipsia, polyuria, polyphagia, and marked weight changes, 12:28 Cardiovascular: Positive for chest pain, of the chest, Exam: 12:32 Constitutional: This is a well developed, well nourished patient who is awake, alert, savannah and in no acute distress. Head/Face: Normocephalic, atraumatic. Eyes: Pupils equal round and reactive to light, extra-ocular motions intact. Lids and lashes normal. Conjunctiva and sclera are non-icteric and not injected. Cornea within normal limits. Periorbital areas with no swelling, redness, or edema. ENT: Nares patent. No nasal discharge, no septal abnormalities noted. Tympanic membranes are normal and external auditory canals are clear. Oropharynx with no redness, swelling, or masses, exudates, or evidence of obstruction, uvula midline. Mucous membranes moist. Neck: Trachea midline, no thyromegaly or masses palpated, and no cervical lymphadenopathy. Supple, full range of motion without nuchal rigidity, or vertebral point tenderness. No Meningismus. Chest/axilla: Normal chest wall appearance and motion. Nontender with no deformity. No lesions are appreciated. Respiratory: Lungs have equal breath sounds bilaterally, clear to auscultation and percussion. No rales, rhonchi or wheezes noted. No increased work of breathing, no retractions or nasal flaring. Abdomen/GI: Soft, non-tender, with normal bowel sounds. No distension or tympany. No guarding or rebound. No evidence of tenderness throughout. Back: No spinal tenderness. No costovertebral tenderness. Full range of motion. Female : Normal external genitalia. Skin: Warm, dry with normal turgor. Normal color with no rashes, no lesions, and no evidence of cellulitis. MS/ Extremity: Pulses equal, no cyanosis. Neurovascular intact. Full, normal range of motion., bilateral aka Neuro: Awake and alert, GCS 15, oriented to person, place, time, and situation. Cranial nerves II-XII grossly intact. Motor strength 5/5 in all extremities. Sensory grossly intact. Cerebellar exam normal. Normal gait. Psych: Awake, alert, with orientation to person, place and time. Behavior, mood, and affect are within normal limits. 12:32 Cardiovascular: Rate: normal, actual rate is 82 bpm, Rhythm: regular, Pulses: Pulses are 4+ in bilateral radial, brachial, femoral, popliteal, posterior tibial and and dorsalis pedis arteries.. Heart sounds: normal, Edema: is not appreciated, JVD: is not appreciated, 12:32 ECG was reviewed by the Attending Physician. Vital Signs: 12:11 BP 180 / 90; Pulse 80; bp 12:27 Weight 79.38 kg; Height 5 ft. 0 in. ; db 12:45 BP 187 / 80; Pulse 79; Resp 18; Pulse Ox 100% ; bp 13:00 BP 196 / 76; Pulse 69; Resp 16; Pulse Ox 100% ; db 12:27 Body Mass Index 34.18 (79.38 kg, 152.4 cm) db MDM: 12:06 Medical Screening Exam initiated savannah 12:35 HEART Score: History: Highly Suspicious (2), ECG: Significant ST-deviation (2), Age: > savannah 45 and < 65 years (1), Risk Factors: > or = 3 Risk factors for atherosclerotic disease (2), [Hypercholesterolemia] [Hypertension] [DM] [+ Family HX] [Obesity]. The patient was given aspirin in the Emergency Department. VIOLA Risk Score: 1 - Three or more CAD risk factors, 1- Known CAD, 1 - ASA use in past 7 days, 1 - Recent [<24hrs] Severe Angina, 1 - ST deviation >0.5mm, TOTAL SCORE = 5. Data reviewed: vital signs, nurses notes, lab test result(s), EKG, radiologic studies, plain films. Consideration of Admission/Observation Escalation of care including admission/observation considered. I considered the following discharge prescriptions or medication management in the emergency department Medications were administered in the Emergency Department. See MAR. Independent interpretation of the following test(s) in the Emergency Department EKG: See my EKG interpretation above. Test considered but Not performed: CT: no ct chest. Historians other than the Patient: EMS: [facility] in [facility]. Care significantly affected by the following chronic conditions: Diabetes, Hypertension, Congestive Heart Failure, Obesity. Counseling: I had a detailed discussion with the patient and/or guardian regarding the historical points, exam findings, and any diagnostic results supporting the discharge/admit diagnosis, the presence of at least one elevated blood pressure reading (>120/80) during this emergency department visit, lab results, radiology results, the need to transfer to another facility, for higher level of care, BRENDA Vicente does not immediately have the required specialist. 11/20 12:06 Order name: Basic Metabolic Panel [facility] 11/20 12:06 Order name: CBC with Diff [facility] 11/20 12:06 Order name: LFT's 11/20 12:06 Order name: Magnesium [facility] 11/20 12:06 Order name: NT PRO-BNP [facility] 11/20 12:06 Order name: PT-INR [facility] 11/20 12:06 Order name: Troponin HS [facility] 11/20 12:06 Order name: Lipase [place] 11/20 12:06 Order name: XRAY Chest (1 view) 11/20 12:06 Order name: Cardiac monitoring; Complete Time: 12: [facility] 11/20 12:06 Order name: EKG - Nurse/Tech; Complete Time: 12: [facility] 11/20 12:06 Order name: IV Saline Lock; Complete Time: 12: [facility] 11/20 12:06 Order name: Labs collected and sent; Complete Time: 12: [facility] 11/20 12:06 Order name: O2 Per Protocol; Complete Time: 12: [facility] 11/20 12:06 Order name: O2 Sat Monitoring; Complete Time: 12:28 [facility] EC: Rate is 79 beats/min. Rhythm is regular. QRS [place] is Normal. AL interval is normal. QRS [place] interval is normal. QT interval is normal. No Q waves. T waves are Normal. T waves are Inverted. ST Segment is elevated in leads II, III, aVF. ST Segment is depressed in leads V1, V2. Clinical impression: Inferior NE - acute. Administered Medications: : Drug: Aspirin PO Chewable Tablet 324 mg PO once; 81 mg tablets x 4 Route: PO; db 12: Drug: NS 0.9% IV 500 ml 500 ml IV at 1 bolus once; to be given as a bolus over 30 db minutes Volume: 500 ml; Route: IV; Rate: 1 bolus; Site: right antecubital; 12:55 Follow up: IV Status: Completed infusion bp 12:30 Drug: Heparin ([place] Drip) 12 units/kg/[place] - ([place] [address] units, D5W IV 500 ml) IV at bp calculated rate Per protocol; Max initial rate 1000 units/hr {Co-Signature: pamela (Aracelis Tran RN).} Route: IV; Rate: calculated rate; Site: left hand; 12:56 Follow up: IV Status: Infusion continued upon transfer bp 12:30 Drug: Famotidine IVP 20 mg IVP once; dilute with 10 mL 0.9% NaCl; give over 2 minutes bp Route: IVP; Site: right antecubital; 12:55 Follow up: Response: No adverse reaction bp 12:30 Drug: Clopidogrel PO 300 mg PO once Route: PO; bp 12:55 Follow up: Response: No adverse reaction bp 12:30 Drug: fentaNYL (PF) IVP 25 mcg IVP once Route: IVP; Site: right antecubital; bp 12:55 Follow up: Response: No adverse reaction bp 12:30 Drug: fentaNYL (PF) IVP 25 mcg IVP once Route: IVP; Site: right antecubital; bp 12:55 Follow up: Response: No adverse reaction bp 12:30 Drug: Ondansetron IVP 4 mg IVP once; over 2 minutes Route: IVP; Site: right antecubital;bp 12:55 Follow up: Response: No adverse reaction bp 12:46 Drug: Heparin (NE-Bolus with thrombolytic) - HEParin IVP 60 units/kg IVP once; Max 4000 bp units {Co-Signature: pamela (Aracelis Tran RN).} Route: IVP; Site: left hand; 12:56 Follow up: Response: No adverse reaction bp 12:46 Drug: Tenecteplase IV (Administer 10 ml NS flush BEFORE and AFTER tenecteplase) 40 mg bp IV at per protocol once {Co-Signature: pamela (Aracelis Tran RN).} Route: IV; Rate: per protocol; Site: right antecubital; 12:56 Follow up: IV Status: Completed infusion bp 13:12 Drug: Labetalol IV 10 mg IV at per protocol once Route: IV; Rate: per protocol; Site: db right antecubital; 13:23 Follow up: Response: No adverse reaction; IV Status: Completed infusion db Disposition: 12:38 Critical Care:. savannah Disposition Summary: 11/20/24 12:39 Transfer Ordered Notes: Transfer Location: [facility] [place] Reason: Higher level of care savannah Condition: Stable sav[place] Problem: new savannah Symptoms: are unchanged savannah Accepting Physician: to [facility] cath /ccu(11/20/24 13:26) db Diagnosis - ST elevation (STEMI) myocardial infarction of inferior wall sav[place] - Type 2 diabetes mellitus with hyperglycemia savannah - Essential (primary) hypertension savannah Forms: - Medication Reconciliation Form savannah - SBAR form [place] Critical care time excluding procedures: 12:38 Critical care time: Bedside Care: 30 minutes, Consultation: 10 minutes, Family savannah Intervention: 10 minutes. Total time: 50 minutes Signatures: Dispatcher [employer] EDMS Arik Barrett MD MD cha Peltier, Brian RN RN bp Aracelis Tran RN RN db Aracelis Tran RN db Corrections: (The following items were deleted from the chart) 12:07 12:07 BASIC METABOLIC PANEL+C.LAB.BRZ ordered. EDMS EDMS 12:07 12:07 CBC+H.LAB.BRZ ordered. EDMS EDMS 12:07 12:07 HEPATIC FUNCTION+C.LAB.BRZ ordered. EDMS EDMS 12:07 12:07 MAGNESIUM+C.LAB.BRZ ordered. EDMS EDMS 12:07 12:07 PROBNP+C.LAB.BRZ ordered. EDMS EDMS 12:07 12:07 PROTIME (+INR)+COAG.LAB.BRZ ordered. EDMS EDMS 12:07 12:07 Troponin High Sensitivity+C.LAB.BRZ ordered. EDMS EDMS 12:07 12:07 LIPASE+C.LAB.BRZ ordered. EDMS EDMS 12:07 12:07 Urinalysis+U.LAB.BRZ ordered. EDMS EDMS 12:07 12:07 Chest Single View+RAD.RAD.BRZ ordered. EDMS EDMS 13:26 12:39 to [facility] cath /ccu [place] db
--- NOTE | 2024-11-20 12:40 | ER ---
Nurse's Notes [facility] Name: Jailyn Terry Age: 59 yrs Sex: Female : 1965 Arrival Date: 11/20/2024 Time: 11:57 Bed 6 Private MD: Diagnosis: ST elevation (STEMI) myocardial infarction of inferior wall;Type 2 diabetes mellitus with hyperglycemia;Essential (primary) hypertension Presentation: 11/20 12:11 Chief complaint: EMS states: CP SINCE 0600. Coronavirus screen: At this time, the bp client does not indicate any symptoms associated with coronavirus-19. Ebola Screen: No symptoms or risks identified at this time. Initial Sepsis Screen: Does the patient meet any 2 criteria? No. Patient's initial sepsis screen is negative. Does the patient have a suspected source of infection? No. Patient's initial sepsis screen is negative. Risk Assessment: Do you want to hurt yourself or someone else? Patient reports no desire to harm self or others. Onset of symptoms was November 20, 2024 at 06:00. Care prior to arrival: Medication(s) given: ASA, 81 mg, x 4, Glucose check: 306. 12:11 Method Of Arrival: EMS: [facility] bp 12:11 Acuity: JENNIFER 3 bp Triage Assessment: 12:12 General: Appears in no apparent distress. uncomfortable, Behavior is cooperative, bp appropriate for age, anxious. Pain: Complains of pain in chest. EENT: No deficits noted. Neuro: No deficits noted. Cardiovascular: Rhythm is sinus rhythm. Respiratory: No deficits noted. GI: No signs and/or symptoms were reported involving the gastrointestinal system. : No signs and/or symptoms were reported regarding the genitourinary system. Derm: No deficits noted. Musculoskeletal: No deficits noted. 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 - Infectious Disease History:: Denies. - Social history:: Smoking status: Patient denies any tobacco usage or history of. Screenin:30 [facility] ED Fall Risk Assessment (Adult) History of falling in the last 3 months, bp including since admission No falls in past 3 months (0 pts) Confusion or Disorientation No (0 pts) Intoxicated or Sedated No (0 pts) Impaired Gait No (0 pts) Mobility Assist Device Used No (0 pt) Altered Elimination No (0 pt) Score/Fall Risk Level 0 - 2 = Low Risk Oriented to surroundings. 12:30 Abuse screen: Denies threats or abuse. Denies injuries from another. Nutritional bp screening: No deficits noted. Tuberculosis screening: No symptoms or risk factors identified. Assessment: 12:15 General: Appears distressed, uncomfortable, obese, Behavior is cooperative, appropriate bp for age, anxious. Pain: Complains of pain in chest Pain radiates to right arm Pain began 4 hours ago. 13:01 Reassessment: REPORT TO FAN ROSE AT [facility] ER. [facility]. bp 13:10 Reassessment: HELICOPTER HERE FOR TRANSPORT. db Vital Signs: 12:11 BP 180 / 90; Pulse 80; bp 12:27 Weight 79.38 kg; Height 5 ft. 0 in. ; db 12:45 BP 187 / 80; Pulse 79; Resp 18; Pulse Ox 100% ; bp 13:00 BP 196 / 76; Pulse 69; Resp 16; Pulse Ox 100% ; db 12:27 Body Mass Index 34.18 (79.38 kg, 152.4 cm) db ED Course: 12:04 Patient arrived in ED. bd 12:06 Jonathan Lawson, MILTON is Primary Nurse. bp 12:06 Arik Barrett MD is Attending Physician. savannah 12:11 Triage completed. bp 12:12 Arm band placed on. bp 12:15 Maintain EMS IV. Dressing intact. Good blood return noted. Site clean \T\ dry. Gauge \T\ bp site: 22 LEFT HAND. Flushed with 10 mL NS. 12:24 transfer initiated to [facility] by dr barrett. bd 12:30 Patient has correct armband on for positive identification. Client placed on continuous bp cardiac and pulse oximetry monitoring. NIBP monitoring applied. environmental monitoring technician on. Pulse ox on. NIBP on. 12:30 Initial lab(s) drawn, by me, sent to lab. Inserted saline lock: 20 gauge in right bp antecubital area, using aseptic technique. Blood collected. Flushed with 10 mL NS. 12:31 XRAY Chest (1 view) In Process Unspecified. EDMS 12:45 pt accepted in transfer to [facility] ER by dr Quinn, admin approval given by Jose Navarro. 13:24 Provided Education on: TRANSFER. db 13:24 No provider procedures requiring assistance completed. Patient transferred, IV remains db in place. Administered Medications: 12:26 Drug: Aspirin PO Chewable Tablet 324 mg PO once; 81 mg tablets x 4 Route: PO; db 12:26 Drug: NS 0.9% IV 500 ml 500 ml IV at 1 bolus once; to be given as a bolus over 30 db minutes Volume: 500 ml; Route: IV; Rate: 1 bolus; Site: right antecubital; 12:55 Follow up: IV Status: Completed infusion bp 12:30 Drug: Heparin ([place] Drip) 12 units/kg/hr - ([place] [address] units, D5W IV 500 ml) IV at bp calculated rate Per protocol; Max initial rate 1000 units/hr {Co-Signature: db (Aracelis Tran RN).} Route: IV; Rate: calculated rate; Site: left hand; 12:56 Follow up: IV Status: Infusion continued upon transfer bp 12:30 Drug: Famotidine IVP 20 mg IVP once; dilute with 10 mL 0.9% NaCl; give over 2 minutes bp Route: IVP; Site: right antecubital; 12:55 Follow up: Response: No adverse reaction bp 12:30 Drug: Clopidogrel PO 300 mg PO once Route: PO; bp 12:55 Follow up: Response: No adverse reaction bp 12:30 Drug: fentaNYL (PF) IVP 25 mcg IVP once Route: IVP; Site: right antecubital; bp 12:55 Follow up: Response: No adverse reaction bp 12:30 Drug: fentaNYL (PF) IVP 25 mcg IVP once Route: IVP; Site: right antecubital; bp 12:55 Follow up: Response: No adverse reaction bp 12:30 Drug: Ondansetron IVP 4 mg IVP once; over 2 minutes Route: IVP; Site: right antecubital;bp 12:55 Follow up: Response: No adverse reaction bp 12:46 Drug: Heparin (ID-Bolus with thrombolytic) - HEParin IVP 60 units/kg IVP once; Max 4000 bp units {Co-Signature: db (Aracelis Tran RN).} Route: IVP; Site: left hand; 12:56 Follow up: Response: No adverse reaction bp 12:46 Drug: Tenecteplase IV (Administer 10 ml NS flush BEFORE and AFTER tenecteplase) 40 mg bp IV at per protocol once {Co-Signature: db (Aracelis Tran RN).} Route: IV; Rate: per protocol; Site: right antecubital; 12:56 Follow up: IV Status: Completed infusion bp 13:12 Drug: Labetalol IV 10 mg IV at per protocol once Route: IV; Rate: per protocol; Site: db right antecubital; 13:23 Follow up: Response: No adverse reaction; IV Status: Completed infusion db Medication: 13:24 VIS not applicable for this client. db Outcome: 12:39 ER care complete, transfer ordered by MD. nuñez 13:24 Transferred by helicopter Transfer form completed. X-rays sent w/ patient. db 13:24 Condition: stable 13:24 Instructed on the need for transfer, 13:26 Patient left the ED. db Signatures: Dispatcher [employer] EDMS Mercedez Olivares Corey, MD MD cha Peltier, Brian RN RN Aracelis Amato, RN RN db Aracelis Tran RN db
[2024-11-20 12:42] LABS: PT Prothrombin Time 10.6 SECONDS (10-13.0); Protime INR 0.93
[2024-11-20 12:59] LABS: ALT/SGPT 23 U/L (13-56); AST/SGOT 20 U/L (15-37); Albumin 3.4 g/dL (3.4-5.0); Albumin/Globulin Ratio 0.7 (1.1-1.8); Alkaline Phosphatase 165 U/L (45-117); Anion Gap 12.1 mEq/L (5.0-15.0); BUN Blood Urea Nitrogen 35 mg/dL (7-18); Bicarbonate 21 mEq/L (21-32); Bilirubin Direct < 0.2 mg/dL (0-0.2); Bilirubin Indirect, Calculated 0.4 mg/dL (0.2-0.8); Bilirubin Total 0.6 mg/dL (0.2-1.0); Globulin 4.6 g/dL (2.3-3.5); Glomerular Filtration Rate 23 ml/min (=/>90); Glucose Level 288 mg/dL (74-106); Lipase 83 U/L (13-75); Magnesium 2.1 mg/dL (1.6-2.4); NT PRO-BNP 699 pg/mL (<125); Potassium 4.1 mEq/L (3.5-5.1); Sodium Level 132 mEq/L (136-145)
[2024-11-20 13:00] LABS: Troponin High Sensitivity 63.5 pg/mL (<58.9)
--- NOTE | 2024-11-20 13:07 | RAD REPORT ---
Procedure: Chest Single View HISTORY: Chest pain COMPARISON: 2022 FINDINGS: The lungs appear clear of acute infiltrate. No significant pleural effusion noted. The heart is normal size. IMPRESSION: No acute abnormality is displayed.
[2024-11-20] MEDS ORDERED: LABETALOL 20 MG/4ML SYRINGE IV ONE (13:13)
[2024-11-20 13:33] VITALS: O2SAT 100
[2024-11-20 13:35] VITALS: BP 196/76
--- NOTE | 2024-11-24 12:22 | EKG ---
Test Date: 2024-11-20 Test Time: 12:17:35 Director Of Market Intelligence: BP MEASUREMENT RESULTS: Intervals: Rate: 79 OR: 142 QRSD: 86 QT: 390 QTc: 447 Hunt: P: 42 OR: 142 QRS: -14 T: 92 INTERPRETIVE STATEMENTS: Age and gender specific ECG analysis Normal sinus rhythm Cannot rule out Anterior infarct, age undetermined Inferior injury pattern ACUTE [place] / STEMI Consider right ventricular involvement in acute inferior infarct Abnormal ECG Compared to ECG 03/19/2022 03:16:03 Myocardial infarct finding now present Sinus tachycardia no longer present Atrial premature complex(es) no longer present ST (T wave) deviation no longer present Electronically Signed On 11-24-24 12:12:07 CDT by Lazarus Rodríguez
== END 2024-11-20 13:26 | disposition short-term general hospital (02) ==
LOC: ER 11:57
DX: I21.19 ST elevation (STEMI) myocardial infarction involving other coronary artery of inferior wall (principal); E11.65 Type 2 diabetes mellitus with hyperglycemia; I10 Essential (primary) hypertension; I50.9 Heart failure, unspecified; Z95.818 Presence of other cardiac implants and grafts
CPT/HCPCS: 92977; 93005; 85025; 80048; 36415; 83735; 85610; 80076; 84484; 83690; 83880; 71045; 99285; J1644; J3101; J3010; J2405; J7040

== ENCOUNTER 2025-04-17 07:56 | Emergency (ER) | payer OTHER ==
[2025-04-17] MEDS ORDERED: METOPROLOL TAR 50 MG TAB ONE (08:35)
[2025-04-17] MEDS ORDERED: GABAPENTIN 300 MG CAP ONE (08:35)
[2025-04-17] MEDS ORDERED: ASPIRIN 81 MG CHEWABLE TABLET ONE (08:35)
[2025-04-17] MEDS ORDERED: HYDROCODONE/APAP 5/325 MG TAB ONE (08:36)
[2025-04-17] MEDS ORDERED: AMLODIPINE 10 MG TAB ONE (08:36)
[2025-04-17 08:40] LABS: Absolute Lymphocytes (CBC) 3.1 K/uL (0.7-4.9); Hematocrit 29.2 % (36.0-45.0); Hemoglobin 10.1 g/dL (12.0-15.0); MCH 27.4 pg (27.0-35.0); MCHC 34.6 g/dL (32.0-36.0); MCV 79.1 fL (80-100); MPV 7.1 fL (7.6-11.3); Nucleated RBC Absolute Count 0.0 (0-0); Nucleated Red Blood Cells % 0.0 % (0-0); RBC Red Blood Cell Count 3.69 M/uL (3.86-4.86); White Blood Count 7.50 thou/uL (4.3-10.9)
[2025-04-17 08:59] LABS: ALT/SGPT 26.0 U/L (13-56); AST/SGOT 23.0 U/L (15-37); Albumin 3.5 g/dL (3.4-5.0); Albumin/Globulin Ratio 0.9 (1.1-1.8); Alkaline Phosphatase 132.0 U/L (45-117); Anion Gap 8.4 mEq/L (5.0-15.0); BUN Blood Urea Nitrogen 38.0 mg/dL (7-18); Globulin 4.0 g/dL (2.3-3.5); Glucose Level 109.0 mg/dL (74-106); Potassium 4.4 mEq/L (3.5-5.1)
--- NOTE | 2025-04-17 09:15 | ER ---
Nurse's Notes [facility] Name: Jailyn Terry Age: 59 yrs Sex: Female : 1965 Arrival Date: 04/17/2025 Time: 07:56 Bed 7 Private MD: Diagnosis: Pain in left leg Presentation: 04/17 08:17 Chief complaint: Patient states: c/o L ankle/foot pain and swelling. Coronavirus nh2 screen: Client denies travel out of the [place] in the last 14 days. At this time, the client does not indicate any symptoms associated with coronavirus-19. Ebola Screen: Patient denies travel to an Ebola-affected area in the 21 days before illness onset. No symptoms or risks identified at this time. Initial Sepsis Screen: Does the patient meet any 2 criteria? No. Patient's initial sepsis screen is negative. Does the patient have a suspected source of infection? No. Patient's initial sepsis screen is negative. Risk Assessment: Do you want to hurt yourself or someone else? Patient reports no desire to harm self or others. Onset of symptoms was March 17, 2025. 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 - Infectious Disease History:: Denies. - Social history:: Smoking status: Patient denies any tobacco usage or history of. Screenin:22 [facility] ED Fall Risk Assessment (Adult) History of falling in the last 3 months, nh2 including since admission No falls in past 3 months (0 pts) Confusion or Disorientation No (0 pts) Intoxicated or Sedated No (0 pts) Impaired Gait No (0 pts) Mobility Assist Device Used Yes (1 pt) Altered Elimination No (0 pt) Score/Fall Risk Level 0 - 2 = Low Risk Oriented to surroundings, Maintained a safe environment, Educated pt \T\ family on fall prevention, incl call for assistance when getting out of bed, Assessed \T\ reinforced patient's understanding of fall precautions. Abuse screen: Denies threats or abuse. Denies injuries from another. Nutritional screening: No deficits noted. Tuberculosis screening: No symptoms or risk factors identified. Assessment: 08:19 General: Appears uncomfortable, Behavior is calm, cooperative, appropriate for age. nh2 Pain: Complains of pain in L ankle/foot Pain radiates to L thigh and hip Pain currently is 8 out of 10 on a pain scale. Quality of pain is described as aching, Pain began 1 month ago Is intermittent, Aggravated by increased activity, weight bearing. Neuro: Level of Consciousness is awake, alert, obeys commands, Oriented to person, place, time, situation, Appropriate for age Reports Denies headache. Cardiovascular: Denies chest pain, Patient's skin is warm and dry. Respiratory: Airway is patent Trachea midline Respiratory effort is even, unlabored, Respiratory pattern is regular, symmetrical, Denies cough, shortness of breath. GI: Abdomen is round non-distended, Patient currently denies nausea, vomiting. : No signs and/or symptoms were reported regarding the genitourinary system. Denies burning with urination. EENT: No signs and/or symptoms were reported regarding the EENT system. Derm: Skin is intact, Skin is pink, warm \T\ dry. Skin temperature is warm. Musculoskeletal: Range of motion: intact in all extremities, Reports weakness in left leg numbness in left leg. 09:00 Reassessment: Patient and/or family updated on plan of care and expected duration. Pain nh2 level reassessed. Patient is alert, oriented x 3, equal unlabored respirations, skin warm/dry/pink. Patient states feeling better. Vital Signs: 08:17 BP 184 / 76; Pulse 72; Resp 18; Temp 98.8(O); Pulse Ox 100% on R/A; Weight 78.02 kg nh2 (R); Height 5 ft. 2 in. ; 09:18 BP 162 / 71; Pulse 66; Resp 18; Temp 98.6; Pulse Ox 100% on R/A; nh2 08:17 Body Mass Index 31.46 (78.02 kg, 157.48 cm) nh2 ED Course: 08:00 Patient arrived in ED. cj3 08:02 Estrada Arevalo [facility]-C [facility]. dr5 08:02 Jos Lara DO is Attending Physician. dr5 08:05 Arm band placed on Patient placed in an exam room, on a stretcher. ll1 08:07 Nikolay Brown Jr, RN is Primary Nurse. nh2 08:18 Triage completed. nh2 08:22 Provided Education on: using call light for assistance. nh2 08:22 Patient has correct armband on for positive identification. Bed in low position. Call nh2 light in reach. Side rails up X 1. 08:35 Inserted saline lock: 22 gauge in right antecubital area, using aseptic technique. nh2 Blood collected. Flushed with 10 mL NS. 09:25 IV discontinued, intact, bleeding controlled, No redness/swelling at site. Pressure nh2 dressing applied. 09:26 No provider procedures requiring assistance completed. nh2 Administered Medications: 08:41 Drug: Gabapentin PO 300 mg PO once Route: PO; nh2 09:27 Follow up: Response: No adverse reaction; Pain is decreased nh2 08:41 Drug: HYDROcodone-acetaminophen PO 5 mg-325 mg 2 tabs PO once Route: PO; nh2 09:00 Follow up: Response: No adverse reaction; Pain is decreased; RASS: Alert and Calm (0) nh2 08:42 Drug: amLODIPine PO 10 mg PO once Route: PO; nh2 09:27 Follow up: Response: No adverse reaction; Blood pressure is lowered nh2 08:42 Drug: Aspirin PO Chewable Tablet 81 mg PO once Route: PO; nh2 09:27 Follow up: Response: No adverse reaction nh2 08:42 Drug: Metoprolol PO 50 mg PO once Route: PO; nh2 09:27 Follow up: Response: No adverse reaction; Blood pressure is lowered nh2 Medication: 08:22 VIS not applicable for this client. nh2 Outcome: 09:14 Discharge ordered by . dr5 09:26 Discharged to home via wheelchair, with significant other, nh2 09: Condition: improved 09:26 Discharge instructions given to patient, significant other, Instructed on discharge instructions, follow up and referral plans. no drinking with medication, medication usage, Demonstrated understanding of instructions, follow-up care, medications, Prescriptions given X 1, 09:28 Patient left the ED. nh2 Signatures: Roosevelt Millan RN RN ll1 Nikolay Brown Jr RN RN nh2 Estrada Arevalo, DENTAL MOLD MAKER-C DENTAL MOLD MAKER-Cdr5 Anika Crabtree cj3 Corrections: (The following items were deleted from the chart) 08:19 08:18 Allergies: Morphine (Upset stomach); nh2 nh2 08:42 08:17 BP 184 / 76; Pulse 72bpm; Resp 18bpm; Pulse Ox 100% RA; 78.02 kg Reported; Height nh2 5 ft. 2 in.; BMI: 31.4; nh2 09:25 09:18 BP 162 / 71; Pulse 66bpm; Resp 18bpm; Pulse Ox 100% RA; nh2 nh2
--- NOTE | 2025-04-17 09:15 | EDPHYS ---
Physician Documentation [facility] Name: Jailyn Terry Age: 59 yrs Sex: Female : 1965 Arrival Date: 04/17/2025 Time: 07:56 Bed 7 Private MD: ED Physician Jos Lara HPI: 04/17 08:22 This 59 yrs old Female presents to ER via Wheelchair with complaints of dr5 Numbness - LEG/FOOT LT. 08:22 Onset: The symptoms/episode began/occurred 1 month(s) ago. Patient is a 59-year-old dr5 female with history of cataract, CHF, diabetes, glaucoma, hypertension, [place] in October coming in with 1 month of left ankle pain and swelling for the past month. Patient reports that she saw her primary care doctor and had ultrasound completed but does not know the results yet. Patient denies chest pain, shortness of breath, abdominal pain, nausea, vomiting, diarrhea. Patient states that the pain originates in the left lower back and radiates down the back of her left leg. Patient denies significant swelling to the left ankle and denies difficulty ambulating or bearing weight.. 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 - Infectious Disease History:: Denies. - Social history:: Smoking status: Patient denies any tobacco usage or history of. ROS: 08:22 Constitutional: as per hpi dr5 Exam: 08:22 Constitutional: This is a well developed, well nourished patient who is awake, alert, dr5 and in no acute distress. Head/Face: Normocephalic, atraumatic. Eyes: Pupils equal round and reactive to light, extra-ocular motions intact. Lids and lashes normal. Conjunctiva and sclera are non-icteric and not injected. Cornea within normal limits. Periorbital areas with no swelling, redness, or edema. ENT: Nares patent. No nasal discharge, no septal abnormalities noted. Tympanic membranes are normal and external auditory canals are clear. Oropharynx with no redness, swelling, or masses, exudates, or evidence of obstruction, uvula midline. Mucous membranes moist. Chest/axilla: Normal chest wall appearance and motion. Nontender with no deformity. No lesions are appreciated. Cardiovascular: Regular rate and rhythm with a normal S1 and S2. Normal PMI, no JVD. No pulse deficits. Respiratory: Lungs have equal breath sounds bilaterally, clear to auscultation. No rales, rhonchi or wheezes noted. No increased work of breathing, no retractions or nasal flaring. Abdomen/GI: Soft, non-tender, non-distended Back: No spinal tenderness. No costovertebral tenderness. Full range of motion. Skin: Warm, dry with normal turgor. Normal color with no rashes, no lesions, and no evidence of cellulitis. MS/ Extremity: Pulses equal, no cyanosis. Neurovascular intact. Full, normal range of motion. Neuro: Awake and alert, GCS 15, oriented to person, place, time, and situation. Cranial nerves II-XII grossly intact. Motor strength 5/5 in all extremities. Sensory grossly intact. Cerebellar exam normal. Normal gait. Vital Signs: 08:17 BP 184 / 76; Pulse 72; Resp 18; Temp 98.8(O); Pulse Ox 100% on R/A; Weight 78.02 kg nh2 (R); Height 5 ft. 2 in. ; 09:18 BP 162 / 71; Pulse 66; Resp 18; Temp 98.6; Pulse Ox 100% on R/A; nh2 08:17 Body Mass Index 31.46 (78.02 kg, 157.48 cm) nh2 MDM: 08:03 Medical Screening Exam initiated dr5 08:22 ED course: Will obtain blood work as well as ultrasound to rule out DVT. Concerns for dr5 left-sided sciatic nerve pain. Patient did not take blood pressure medication this morning so we will give her medicines as well as pain medication as well. Pending lab work and ultrasound results.. 08:32 External Records Reviewed: Outpatient radiology: Patient had lower extremity arterial dr5 bilateral ultrasound completed on 04/11/2025. Reviewed US results. Impression states there may be a significant stenosis left superficial femoral artery. CTA or MRA left lower extremity recommended for further evaluation.. 09:20 Differential diagnosis: viral Infection, DVT, arterial stenosis, sciatic nerve pain, dr5 anemia, chronic disease. Data reviewed: vital signs, nurses notes, lab test result(s), CBC, white blood cell count, hemoglobin, hematocrit, platelets, electrolytes, sodium, potassium, chloride, serum bicarbonate, BUN, creatinine, serum glucose, radiologic studies. Consideration of Admission/Observation Escalation of care including admission/observation considered. Escalation considered patient found to have tachycardia, chest pain, shortness of breath. 09:21 I considered the following discharge prescriptions or medication management [facility] I discussed and recommended Over The Counter medications, Medications were administered in the Emergency Department. See MAR. Test considered but Not performed: CT: CT arterial considered but not completed due to being completed [address] angio considered but patient's creatinine is too elevated.. Historians other than the Patient: Spouse/Significant Other: . Care significantly affected by the following chronic conditions: Diabetes, Hypertension, Congestive Heart Failure, Cataract, vision impaired, [place]. Care significantly affected by the following Social Determinants of Health: Poor access to healthcare and/or lack of insurance, Poor access to transportation, Problems related to employment. [employer]. Counseling: I had a detailed discussion with the patient and/or guardian regarding the historical points, exam findings, and any diagnostic results supporting the discharge/admit diagnosis, the presence of at least one elevated blood pressure reading (>120/80) during this emergency department visit, lab results, the need for outpatient follow up, for definitive care, Vascular surgeon, to return to the emergency department if symptoms worsen or persist or if there are any questions or concerns that arise at home. Medication response: Amlodipine, aspirin, metoprolol, gabapentin. Response to treatment: the patient's symptoms have markedly improved after treatment. Special discussion: I discussed with the patient/guardian in detail that at this point there is no indication for admission to the hospital. It is understood, however, that if the symptoms persist or worsen the patient needs to return immediately for re-evaluation. Based on the history and exam findings, there is no indication for further emergent testing or inpatient evaluation. Vascular surgeon. ED course: Patient unable to have CTA completed. Will have patient follow-up with vascular surgeon as well as primary care doctor that ordered ultrasound. All questions answered. Blood pressure has improved. Patient without chest pain or shortness of breath throughout ER stay. Neurovascular intact of left lower leg. All questions answered. Strict ER precautions given. Labs were printed and given to patient to take with her.. 04/17 08:18 Order name: CBC with Diff; Complete Time: 08:42 dr5 04/17 08:18 Order name: CMP; Complete Time: 09:04 dr5 Administered Medications: 08:41 Drug: Gabapentin PO 300 mg PO once Route: PO; nh2 09:27 Follow up: Response: No adverse reaction; Pain is decreased nh2 08:41 Drug: HYDROcodone-acetaminophen PO 5 mg-325 mg 2 tabs PO once Route: PO; nh2 09:00 Follow up: Response: No adverse reaction; Pain is decreased; RASS: Alert and Calm (0) nh2 08:42 Drug: amLODIPine PO 10 mg PO once Route: PO; nh2 09:27 Follow up: Response: No adverse reaction; Blood pressure is lowered nh2 08:42 Drug: Aspirin PO Chewable Tablet 81 mg PO once Route: PO; nh2 09:27 Follow up: Response: No adverse reaction nh2 08:42 Drug: Metoprolol PO 50 mg PO once Route: PO; nh2 09:27 Follow up: Response: No adverse reaction; Blood pressure is lowered nh2 Disposition: 14:32 I was immediately available on-site in the Emergency Department for consultation in the ms3 care of the patient. Disposition Summary: 04/17/25 09:14 Discharge Ordered Notes: Location: Home dr5 Condition: Stable dr5 Diagnosis - Pain in left leg dr5 Followup: dr5 - With: Emergency Department - When: As needed - Reason: Worsening of condition Followup: dr5 - With: Private Physician - When: 1 - 2 days - Reason: Recheck today's complaints, Continuance of care, Re-evaluation by your physician Discharge Instructions: - Discharge Summary Sheet dr5 - RICE Therapy for Routine Care of Injuries dr5 Forms: - Medication Reconciliation Form dr5 - Patient Portal Instructions dr5 - Leadership Thank You Letter dr5 Prescriptions: - Tramadol 50 mg Oral Tablet - take 1 tablet ORAL route every 8 hours as needed; 12 tablet; Refills: 0, dr5 Product Selection Permitted Signatures: Dispatcher [employer] EDMS Jos Lara DO DO ms3 Nikolay Brown Jr, RN RN nh2 Estrada Arevalo, BETTY-C CLAIMS CONFIGURATION ANALYST-Cdr5 Corrections: (The following items were deleted from the chart) 08:18 08:18 Extremity Venous [email or web address] ordered. EDMS EDMS 08:19 08:18 Allergies: Morphine (Upset stomach); nh2 nh2 09:08 08:40 Lower Ext Angio ordered. EDMS EDMS
[2025-04-17 09:45] VITALS: O2SAT 100
[2025-04-17 09:47] VITALS: BP 162/71; TEMP 98.6
== END 2025-04-17 09:28 | disposition home or self-care (01) ==
LOC: ER 07:56
DX: M79.605 Pain in left leg (principal)
CPT/HCPCS: 36415; 80053; 85025; 99284